=== PATIENT | female | born 1990 | race Caucasian/White ===

== ENCOUNTER → 2018-07-08 11:47 | Outpatient (CLI) | payer BC, SELFPAY ==
[2018-07-08 14:43] LABS: HCG Qual (Serum) Negative
== END ==
PROVIDERS: PCP Family Medicine; Visit Provider Family Medicine
DX: Z87.59 Personal history of other complications of pregnancy, childbirth and the puerperium (principal)
CPT/HCPCS: 36415; 84703

== ENCOUNTER 2019-06-02 17:10 | Outpatient (REF) | payer BC, SELFPAY ==
[2019-06-02 18:42] LABS: Abs Immature Grans 0.05 k/cumm (0.0-0.09); Absolute Monocyte Count 1.01 k/cumm (0.11-0.7); HCT 37.3 % (36.0-46.0); HGB 12.2 g/dL (12.0-15.5); Mean Corp. HGB Concentration 32.7 g/dL (32.0-36.0); Mean Corpuscular Hemoglobin 28.4 pg (27.0-33.0); Mean Corpuscular Volume 86.7 fL (80-95); Mean Platelet Volume 10.5 fL (8.0-11.0); Platelet Count 336 x1000/uL (130-400); RBC Distribution Width 12.9 % (11.7-14.6); White Blood Cell Count 12.61 k/cumm (4.4-10.8)
[2019-06-02 19:51] LABS: Absolute Lymphocyte Count 2.65 k/cumm (1.2-3.4); Absolute Neutrophil Count 8.32 k/cumm (1.2-6.7); Atypical Lymphocytes % 3
[2019-06-02 19:52] LABS: Absolute Basophil Count 0.13 k/cumm (0.0-0.2); Diff Comment Manual Differential; RBC Morphology Normal
== END 2019-06-02 17:30 ==
LOC: NCHCN 17:10
PROVIDERS: PCP Family Medicine; Visit Provider Family Medicine
DX: J06.9 Acute upper respiratory infection, unspecified (principal); R53.83 Other fatigue; D64.9 Anemia, unspecified
CPT/HCPCS: 85025

== ENCOUNTER 2020-09-13 19:29 | Outpatient (REF) | payer BC, SELFPAY ==
[2020-09-13 21:29] LABS: Folate 15.8 ng/mL (8.6-20.0); Vitamin B12 375 pg/mL (193-986)
== END 2020-09-13 19:49 ==
LOC: NCHCN 19:29
PROVIDERS: PCP Family Medicine; Visit Provider Family Medicine
DX: H93.12 Tinnitus, left ear (principal)
CPT/HCPCS: 82607; 82746

== ENCOUNTER 2021-08-29 15:52 | Outpatient (REF) | payer BC, SELFPAY ==
[2021-08-29 20:14] LABS: Abs Immature Grans 0.02 10^3/uL (0.0-0.06); Absolute Basophil Count 0.06 10^3/uL (0.0-0.2); Absolute Eosinophil Count 0.45 10^3/uL (0.0-0.7); Absolute Monocyte Count 0.71 10^3/uL (0.1-0.8); Basophils % 0.6; Eosinophils % 4.4; HCT 39.9 % (36.0-46.0); HGB 12.8 g/dL (11.2-15.7); Immature Grans % 0.2; Lymphocytes % 20.7; MCH 29.1 pg (27.0-33.0); MCHC 32.1 % (32.0-36.0); MCV 90.7 fL (80-95); Neutrophils % 67.1; Nucleated RBC 0 %; Platelet Count 287 10^3/uL (130-400); RDW 12.9 % (11.7-14.6); RDW-SD 42.9 fL; WBC 10.14 10^3/uL (4.4-10.8)
[2021-08-29 20:16] LABS: HCG Qual (Serum) Negative
[2021-08-29 20:21] LABS: ALT 24 U/L (14-59); AST 18 U/L (15-37); Albumin 4.2 g/dL (3.4-5.0); Alkaline Phosphatase 46 U/L (46-116); Anion Gap 6.8 mmol/L (3-11); BUN 11 mg/dL (7-18); Bilirubin, Total 0.4 mg/dL (0.2-1.0); CO2 30.2 mmol/L (21.0-32.0); CREATININE 0.7 mg/dL (0.55-1.02); Calcium 9.3 mg/dL (8.5-10.1); Chloride 102 mmol/L (98-107); Glucose 98 mg/dL (74-106); Lipase 99 U/L (73-393); Potassium 3.7 mmol/L (3.5-5.1); Sodium 139 mmol/L (136-145); Total Protein 7.6 g/dL (6.4-8.2)
== END 2021-08-29 15:53 | disposition home or self-care (01) ==
LOC: NCHCN 15:52
PROVIDERS: PCP Family Medicine; Visit Provider Family Medicine
DX: R11.0 Nausea (principal); R10.12 Left upper quadrant pain
CPT/HCPCS: 80053; 83690; 84703; 85025

== ENCOUNTER 2021-12-20 15:37 | Emergency (ER) | payer BC, SELFPAY ==
[2021-12-20] VITALS (15 sets, daily range): BP systolic 121–151; BP diastolic 70–78; PULSE 59–74; RESP 12–21; TEMP 36.3; O2SAT 99–100
--- NOTE | 2021-12-20 15:30 | RT.EKG_ITS ---
APPROVED REPORT Exam: Resting ECG Reason for Exam: palpitations Patient Location: E HR:63 bpm ECG Measurements Heart Rate 63 AXIS OK 163 P 77 QRSd 98 QRS 64 QT 403 T 38 QTc 415 Conclusion Sinus rhythm...normal P axis, V-rate 60- 99 Probable left atrial enlargement...P >50mS, <-0.10mV V1
[2021-12-20 16:04] LABS: Abs Immature Grans 0.02 10^3/uL (0.0-0.06); Absolute Basophil Count 0.05 10^3/uL (0.0-0.2); Absolute Eosinophil Count 0.31 10^3/uL (0.0-0.7); Absolute Lymphocyte Count 2.38 10^3/uL (1.2-3.4); Absolute Monocyte Count 0.87 10^3/uL (0.1-0.8); Absolute Neutrophil Count 4.56 10^3/uL (1.2-6.7); Basophils % 0.6; Eosinophils % 3.8; HGB 12.9 g/dL (11.2-15.7); Immature Grans % 0.2; Lymphocytes % 29.1; MCH 28.7 pg (27.0-33.0); MCHC 32.3 % (32.0-36.0); MCV 89.1 fL (80-95); MPV 10.3 fL (8.0-11.0); Monocytes % 10.6; Neutrophils % 55.7; Nucleated RBC 0 %; Platelet Count 264 10^3/uL (130-400); RBC 4.49 10^6/uL (3.93-5.22); RDW 12.7 % (11.7-14.6); RDW-SD 42.4 fL; WBC 8.19 10^3/uL (4.4-10.8)
--- NOTE | 2021-12-20 16:20 | ED.GENADUL_ITS ---
Discharge Plan Disposition Patient Disposition: HOME Condition: Stable Discharge Details Clinical Impression: Heart palpitations Primary Care Provider: Rita Quiroga ED Provider: Shannon Roger Home Meds and New Rx's Prescriptions: Continued ranitidine HCl 300 MG tablet 300 mg PO DAILY RF: 0 escitalopram oxalate [Lexapro] 10 MG tablet 10 mg PO DAILY RF: 0 omeprazole magnesium [Prilosec OTC] 20 MG tablet,delayed release (DR/EC) 20 mg PO DAILY RF: 0 VITAMIN D 1 tab PO DAILY RF: 0 WOMENS MV & MINERAL 1 tab PO DAILY RF: 0 levonorgestrel-ethinyl estrad [Vienva] 0.1-20 mg-mcg tablet 1 tab PO DAILY RF: 0 montelukast 10 mg tablet 10 mg PO DAILY RF: 0 Discharge Instructions Instructions: Heart Palpitations (ED) Additional Instructions: you will receive a call for appointment to have cardiac specialist placed. keep your follow up appointment with your doctor tomorrow. return sooner for new or worsening symptoms or concerns Referrals: Rita Quiroga MD [Primary Care Provider] - Discharge Orders Other Ambulatory Orders: Cardiac Event Recorder (Routine) Timeframe: 20211221 Facility: [facility] - Location: Respiratory Therapy Ordered By: Shannon Roger Medical Decision Making patient presents with 2 weeks of palpitations. no chest pain,or respiratory c/o. no fever, hemodynamically stable oxygenating well on room air. will check electrolytes, tsh, kidney function, . WELLS criteria 0. labs reviewed, given mag oxide 400 mg po and potassium 40 meq po cardiac event recorder ordered, RT will contact patient for appointment to place. safe for discharge to home. while in department patient monitored on cardiac specialist. she reported having symptoms while here. Here rhythm remained in NSR with occasional PVC. Medical Records Medical records reviewed: Yes I reviewed the patient's medical records. Lab Data Lab results reviewed: Yes I reviewed the patient's lab results. Lab results narrative: Laboratory Tests Range/Units 12/20/21 12/20/21 12/20/21 15:50 15:50 15:50 WBC (4.4-10.8) 10^3/uL 8.19 RBC (3.93-5.22) 10^6/uL 4.49 Hgb (11.2-15.7) g/dL 12.9 Hct (36.0-46.0) % 40.0 MCV (80-95) fL 89.1 MCH (27.0-33.0) pg 28.7 MCHC (32.0-36.0) % 32.3 RDW (11.7-14.6) % 12.7 Plt Count (130-400) 10^3/uL 264 MPV (8.0-11.0) fL 10.3 Immature Gran % 0.2 Neutrophils % 55.7 Lymphocytes % 29.1 Monocytes % 10.6 Eosinophils % 3.8 Basophils % 0.6 Nucleated RBC % % 0 Absolute Neutrophils (1.2-6.7) 10^3/uL 4.56 Absolute Lymphocytes (1.2-3.4) 10^3/uL 2.38 Absolute Monocytes (0.1-0.8) 10^3/uL 0.87 H Absolute Eosinophils (0.0-0.7) 10^3/uL 0.31 Absolute Basophils (0.0-0.2) 10^3/uL 0.05 Sodium (136-145) mmol/L 136 Potassium (3.5-5.1) mmol/L 3.6 Chloride (98-107) mmol/L 101 Carbon Dioxide (21.0-32.0) mmol/L 27.5 Anion Gap (3-11) mmol/L 7.5 BUN (7-18) mg/dL 10 Creatinine (0.55-1.02) mg/dL 0.7 Estimated GFR/1.73 m2 (mL/min/1.73m2) >= 60.00 Glucose (74-106) mg/dL 89 Calcium (8.5-10.1) mg/dL 8.9 Magnesium (1.8-2.4) mg/dL 1.7 L Total Bilirubin (0.2-1.0) mg/dL 0.2 AST (15-37) U/L 16 ALT (14-59) U/L 22 Alkaline Phosphatase (46-116) U/L 46 Total Protein (6.4-8.2) g/dL 7.8 Albumin (3.4-5.0) g/dL 4.2 TSH (0.36-3.74) uIU/mL 3.78 H Cancelled Free T4 (0.76-1.46) ng/dL 0.85 Urine Color (Yellow) Urine Clarity (Clear) Urine pH (5-8) Ur Specific [place] (1.005-1.025) Urine Protein (Negative) mg/dL Urine Ketones (Negative) mg/dL Urine Blood (Negative) Urine Nitrite (Negative) Urine Bilirubin (Negative) Urine Urobilinogen (Up TO 0.2) EU/dL Ur Leukocyte Esterase (Negative) Urine Glucose (Negative) mg/dL Range/Units 12/20/21 16:27 WBC (4.4-10.8) 10^3/uL RBC (3.93-5.22) 10^6/uL Hgb (11.2-15.7) g/dL Hct (36.0-46.0) % MCV (80-95) fL MCH (27.0-33.0) pg MCHC (32.0-36.0) % RDW (11.7-14.6) % Plt Count (130-400) 10^3/uL MPV (8.0-11.0) fL Immature Gran % Neutrophils % Lymphocytes % Monocytes % Eosinophils % Basophils % Nucleated RBC % % Absolute Neutrophils (1.2-6.7) 10^3/uL Absolute Lymphocytes (1.2-3.4) 10^3/uL Absolute Monocytes (0.1-0.8) 10^3/uL Absolute Eosinophils (0.0-0.7) 10^3/uL Absolute Basophils (0.0-0.2) 10^3/uL Sodium (136-145) mmol/L Potassium (3.5-5.1) mmol/L Chloride (98-107) mmol/L Carbon Dioxide (21.0-32.0) mmol/L Anion Gap (3-11) mmol/L BUN (7-18) mg/dL Creatinine (0.55-1.02) mg/dL Estimated GFR/1.73 m2 (mL/min/1.73m2) Glucose (74-106) mg/dL Calcium (8.5-10.1) mg/dL Magnesium (1.8-2.4) mg/dL Total Bilirubin (0.2-1.0) mg/dL AST (15-37) U/L ALT (14-59) U/L Alkaline Phosphatase (46-116) U/L Total Protein (6.4-8.2) g/dL Albumin (3.4-5.0) g/dL TSH (0.36-3.74) uIU/mL Free T4 (0.76-1.46) ng/dL Urine Color (Yellow) Yellow Urine Clarity (Clear) Clear Urine pH (5-8) 7.0 Ur Specific [place] (1.005-1.025) 1.020 Urine Protein (Negative) mg/dL Negative Urine Ketones (Negative) mg/dL Negative Urine Blood (Negative) Negative Urine Nitrite (Negative) Negative Urine Bilirubin (Negative) Negative Urine Urobilinogen (Up TO 0.2) EU/dL 0.2 Ur Leukocyte Esterase (Negative) Negative Urine Glucose (Negative) mg/dL Negative HPI General Mode of arrival: ambulatory . Date/Time Provider Initiated Documentation: 12/20/21 15:48 . Limitations to Documentation: no limitations . Information obtained by: patient . HPI Narrative: presents for evaluation of palpitations that have been occurring over past 2 weeks. she states she has had some in the past and that they are typically associated with anxiety. she denies chest pain, cough or fever. she is able to complete her typical workouts with no difficulty. non smoker. no history of travel or blood clots. she has a pcp appt tomorrow. Related Data Home Medications Medication Instructions Recorded Confirmed Vitamin D 1 tab PO DAILY 10/03/14 escitalopram oxalate [Lexapro] 10 mg PO DAILY tab-cap 10/03/14 12/20/21 omeprazole magnesium [Prilosec OTC] 20 mg PO DAILY 10/03/14 ranitidine HCl 300 mg PO DAILY tab-cap 10/03/14 12/20/21 levonorgestrel-ethinyl estrad 1 tab PO DAILY 12/20/21 12/20/21 [Vienva] montelukast 10 mg PO DAILY 12/20/21 12/20/21 Allergies Allergy/AdvReac Type Severity Reaction Status Date / Time ENVIROMENTAL Allergy Mild Uncoded 12/20/21 15:46 General Stated Complaint: Palpitatns THOMAS: 3 Review of Systems All systems reviewed & are unremarkable except as noted in HPI and below Constitutional Constitutional: Denies fever(s), Denies headache(s), Denies lethargy, Denies poor appetite and Denies weakness ENT Ears, Nose, Mouth, and Throat: Denies headache(s) Cardiovascular Cardiovascular: Reports chest pain, Denies syncope, Denies lightheadedness, Reports palpitations (palpitations) and Denies dyspnea Respiratory Respiratory: Denies dyspnea Gastrointestinal Gastrointestinal: Denies nausea and Denies vomiting Genitourinary Comments: last menstrual period last month, normal pattern Musculoskeletal Musculoskeletal: Denies arthralgias Neurologic Neurologic: Denies syncope, Denies headache(s) and Denies weakness Endocrine Endocrine: Reports palpitations (palpitations) [facility] All Active Problems (Updated 12/20/21 @ 17:18 by Shannon Roger NP) Palpitations (Acute) Heart palpitations (Acute) Environmental allergies (Acute) TMJ dysfunction (Acute) Allergic rhinitis due to allergen (Acute) Jaw pain (Acute) Post-nasal drip (Acute) Chronic rhinitis (Acute) History of chronic cough (Acute) Normal hearing exam (Acute) Otalgia of both ears (Acute) Tinnitus, bilateral (Acute) Abnormal auditory perception (Acute) Social History Smoking/Tobacco Use Status: Never Smoking risk assessment performed?: Yes Alcohol Intake: current Alcohol Intake frequency: a few times a week Drug use: Occasionally Substance use type: marijuana Do you feel safe at home: Yes Do you feel safe in your relationship?: Yes Exam Const General: cooperative, healthy appearing, comfortable and no acute distress Nutritional Appearance: average body habitus Orientation: alert, awake and oriented x3 HENMS Head: normal to inspection, normocephalic and atraumatic Mouth: oral mucosae normal Chest Chest: normal inspection of the chest Resp Effort & Inspection: normal respiratory effort Auscultation: clear to auscultation bilaterally Cardio Rate: regular rate Rhythm: regular rhythm GI Inspection: normal to inspection Skin General skin exam: no rashes or lesions noted Neuro General: patient alert, patient awake and patient oriented x3 Cranial Nerves: CN's II-XI intact bilaterally Extrem General: normal to inspection, full ROM and no pedal edema Course Vital Signs Vital signs: Vital Signs Temperature 36.3 C L 12/20/21 15:42 Pulse 74 12/20/21 15:42 Respiratory Rate 18 12/20/21 15:42 Blood Pressure 151/78 H 12/20/21 15:42 Pulse Oximetry 100 12/20/21 15:42 Temperature 36.3 C L 12/20/21 15:42 Temperature Source Temporal Artery Scan 12/20/21 15:42 Pulse 74 12/20/21 15:42 Respiratory Rate 18 12/20/21 15:42 Respiratory Effort 12/20/21 15:48 Blood Pressure 151/78 H 12/20/21 15:42 Blood Pressure Position Sitting 12/20/21 15:42 Pulse Oximetry 100 12/20/21 15:42 Oxygen Delivery Method Room Air 12/20/21 15:42 Oxygen Flow Rate 0 12/20/21 15:42 Lab/Test Results Lab/Test Results: Laboratory Tests Range/Units 12/20/21 12/20/21 15:50 15:50 WBC (4.4-10.8) 10^3/uL 8.19 RBC (3.93-5.22) 10^6/uL 4.49 Hgb (11.2-15.7) g/dL 12.9 Hct (36.0-46.0) % 40.0 MCV (80-95) fL 89.1 MCH (27.0-33.0) pg 28.7 MCHC (32.0-36.0) % 32.3 RDW (11.7-14.6) % 12.7 Plt Count (130-400) 10^3/uL 264 MPV (8.0-11.0) fL 10.3 Immature Gran % 0.2 Neutrophils % 55.7 Lymphocytes % 29.1 Monocytes % 10.6 Eosinophils % 3.8 Basophils % 0.6 Nucleated RBC % % 0 Absolute Neutrophils (1.2-6.7) 10^3/uL 4.56 Absolute Lymphocytes (1.2-3.4) 10^3/uL 2.38 Absolute Monocytes (0.1-0.8) 10^3/uL 0.87 H Absolute Eosinophils (0.0-0.7) 10^3/uL 0.31 Absolute Basophils (0.0-0.2) 10^3/uL 0.05 TSH Cancelled PAWSS Have you Been Recently Intoxicated or Drunk Within the Last 30 days?: Yes Have you Ever Experienced Previous Episodes of Alcohol Withdrawal?: No Have you ever Experienced Withdrawal Seizures?: No Have you ever Experienced Delirium Tremens(DT)s?: No Have you ever undergone Alcohol Rehabilitation Treatment (i.e, inpt ot outpatient treatment programs)?: No Have you ever Experienced Blackouts?: No Have you ever Combined Alcohol with other Downers within the last 90 days?: No Have you ever Combined Alcohol with any other Substance of Abuse during the last 90 days?: No Positive Blood Alcohol level on Presentation? [PCS.BAL]: No Evidence of Increased Autonomic Activity (i.e. HR>120, tremor, sweating, agitation, nausea)?: No Result: 1
[2021-12-20 16:27] LABS: ALT 22 U/L (14-59); AST 16 U/L (15-37); Albumin 4.2 g/dL (3.4-5.0); Alkaline Phosphatase 46 U/L (46-116); Anion Gap 7.5 mmol/L (3-11); BUN 10 mg/dL (7-18); Bilirubin, Total 0.2 mg/dL (0.2-1.0); CO2 27.5 mmol/L (21.0-32.0); CREATININE 0.7 mg/dL (0.55-1.02); Calcium 8.9 mg/dL (8.5-10.1); Chloride 101 mmol/L (98-107); Glucose 89 mg/dL (74-106); Magnesium 1.7 mg/dL (1.8-2.4); Potassium 3.6 mmol/L (3.5-5.1); Sodium 136 mmol/L (136-145); TSH (W/Ref FT4) 3.78 uIU/mL (0.36-3.74); Total Protein 7.8 g/dL (6.4-8.2)
[2021-12-20 16:43] LABS: Bilirubin Negative (Negative); Blood Negative (Negative); Clarity Clear (Clear); Glucose Negative (Negative); Ketones Negative (Negative); Leukocyte Esterase Negative (Negative); Nitrite Negative (Negative); Urobilinogen 0.2 EU/dL (Up TO 0.2)
[2021-12-20 17:00] LABS: FREE T4 0.85 ng/dL (0.76-1.46)
[2021-12-20] MEDS: Magnesium Oxide 400 MG TAB PO (17:08)
[2021-12-20] MEDS: Potassium Chloride 20 MEQ TABCR 40 MEQ PO (17:08)
== END 2021-12-20 17:36 | disposition home or self-care (01) ==
PROVIDERS: Emergency Provider Nurse Practitioner Acute Care; PCP Family Medicine
DX: R00.2 Palpitations (principal)
CPT/HCPCS: 36415; 80053; 81025; 93005; 99283; 81003; 83735; 84439; 84443; 85025; 93010

== ENCOUNTER 2021-12-24 04:00 | Outpatient (RCR) | payer BC, SELFPAY ==
--- NOTE | 2021-12-24 13:45 | HOLTER_ITS ---
APPROVED REPORT Conclusion This is a 48-hour Holter monitor ordered for palpitations Predominant rhythm was sinus with an average heart rate of 70. Minimum was 34, maximum 161 There were occasional ventricular ectopic beats There were very rare atrial premature beats. There was one 4 beat atrial run There is no atrial fibrillation, no high-grade AV block, no pauses greater than 3 seconds Sinus bradycardia was noted during sleep Patient symptoms corresponded mostly to sinus rhythm, rarely to isolated PVCs
== END 2021-12-31 23:59 | disposition home or self-care (01) ==
LOC: RT 04:00
PROVIDERS: PCP Family Medicine; Visit Provider Family Medicine
DX: R00.2 Palpitations (principal); I49.3 Ventricular premature depolarization; I49.1 Atrial premature depolarization
CPT/HCPCS: 93225; 93226

== ENCOUNTER 2022-03-14 15:50 | Outpatient (REF) | payer BC, SELFPAY ==
[2022-03-16 10:42] LABS: COVID-19 RT-PCR UVMMC Result Negative (Negative)
== END 2022-03-14 15:51 | disposition home or self-care (01) ==
LOC: NCHCN 15:50
PROVIDERS: PCP Family Medicine; Visit Provider Nurse Practitioner Family
DX: J30.9 Allergic rhinitis, unspecified (principal); Z20.822 Contact with and (suspected) exposure to COVID-19
CPT/HCPCS: U0003

== ENCOUNTER 2022-12-06 00:56 | Outpatient (CLI) | payer BC, SELFPAY ==
--- NOTE | 2022-12-06 16:00 | DI.RAD_ITS ---
Exam(s) XR WRIST LT COMP NAVICULAR EXAM: XR WRIST LT COMP NAVICULAR CLINICAL HISTORY: LT WRIST PAIN, M25.532; ? SCAPHOID FX. TECHNIQUE: 2D digital imaging was performed. Four views. COMPARISON: No exams were available for comparison FINDINGS: BONES: No acute fracture is present. No bony destructive lesion is seen. JOINTS: The carpal bones are normally aligned. SOFT TISSUE: Normal. IMPRESSION: Unremarkable radiographs of the left wrist. DATA REPOSITORY: RADIATION DOSE DELIVERED:
== END 2022-12-06 01:16 ==
LOC: DI 00:57
PROVIDERS: PCP Family Medicine; Visit Provider Family Medicine
DX: M25.532 Pain in left wrist (principal)
CPT/HCPCS: 73110

== ENCOUNTER 2023-02-11 12:22 | Outpatient (CLI) | payer BC, SELFPAY ==
[2023-02-11 12:01] LABS: HCG Quant, Pregnancy < 1 mIU/mL (1-3)
== END 2023-02-11 12:23 | disposition home or self-care (01) ==
LOC: LBO 12:23
PROVIDERS: PCP Family Medicine; Visit Provider Advanced Practice Midwife
DX: R10.32 Left lower quadrant pain (principal)
CPT/HCPCS: 36415; 86850; 86900; 86901; 84702

== ENCOUNTER 2023-05-28 13:49 | Outpatient (REF) | payer BC, SELFPAY ==
[2023-05-28 20:00] LABS: HCT 40.2 % (36.0-46.0); HGB 13.1 g/dL (11.2-15.7); MCH 28.9 pg (27.0-33.0); MCHC 32.6 % (32.0-36.0); MCV 89 fL (80-95); MPV 11.3 fL (8.0-11.0); Platelet Count 293 10^3/uL (130-400); RBC 4.54 10^6/uL (3.93-5.22); RDW 13.3 % (11.7-14.6); RDW-SD 43.4 fL
[2023-05-28 20:15] LABS: FREE T4 0.83 ng/dL (0.76-1.46); TSH 4.82 uIU/mL (0.36-3.74)
[2023-05-28 21:13] LABS: Iron 114 ug/dL (50-170); Total Iron Binding Capacity 451 ug/dL (250-450); Transferrin Sat 25 % (15-50)
== END 2023-05-28 13:50 | disposition home or self-care (01) ==
LOC: NCHCN 13:49
PROVIDERS: PCP Family Medicine; Visit Provider Nurse Practitioner Family
DX: E03.9 Hypothyroidism, unspecified (principal); R00.2 Palpitations
CPT/HCPCS: 85027; 83540; 83550; 84439; 84443

== ENCOUNTER 2023-06-16 14:12 | Outpatient (REF) | payer BC, SELFPAY | END 2023-06-16 14:13 | disposition home or self-care (01) | LOC: NCHCN 14:12 | PROVIDERS: PCP Family Medicine; Visit Provider Family Medicine | DX: N76.0 Acute vaginitis (principal) | CPT/HCPCS: 87480; 87510; 87660 ==

== ENCOUNTER 2023-06-20 12:05 | Outpatient (REF) | payer BC, SELFPAY ==
[2023-06-21 14:56] LABS: HSV 1 DNA Result Negative (Negative); HSV 2 DNA Result Negative (Negative)
== END 2023-06-20 12:06 | disposition home or self-care (01) ==
LOC: LBN 12:05
PROVIDERS: PCP Family Medicine; Visit Provider Advanced Practice Midwife
DX: N76.3 Subacute and chronic vulvitis (principal)
CPT/HCPCS: 87529; 87480; 87510; 87660

== ENCOUNTER 2023-10-31 13:51 | Outpatient (RCR) | payer BC, SELFPAY ==
--- NOTE | 2023-11-03 10:00 | HOLTER_ITS ---
APPROVED REPORT Conclusion This is a 48-hour Holter monitor ordered for palpitations Rhythm throughout was sinus with an average heart rate of 67. Minimum was 44, maximum 142 There were very rare isolated atrial(10) and ventricular(47) ectopic beats There was no atrial fibrillation, no high-grade AV block, no pauses greater than 3 seconds Multiple patient symptoms were reported which had no correlation to any dysrhythmia
== END 2023-11-30 23:59 | disposition home or self-care (01) ==
LOC: CARDOPNVT 13:51
PROVIDERS: PCP Family Medicine; Visit Provider Family Medicine
DX: R00.2 Palpitations (principal)
CPT/HCPCS: 93225

== ENCOUNTER 2024-03-10 18:28 | Outpatient (REF) | payer BC, SELFPAY ==
[2024-03-10 20:19] LABS: Abs Immature Grans 0.02 10^3/uL (0.0-0.06); Absolute Basophil Count 0.04 10^3/uL (0.0-0.2); Absolute Eosinophil Count 0.28 10^3/uL (0.0-0.7); Absolute Lymphocyte Count 1.95 10^3/uL (1.2-3.4); Absolute Monocyte Count 0.57 10^3/uL (0.1-0.8); Absolute Neutrophil Count 4.37 10^3/uL (1.2-6.7); Basophils % 0.6; Eosinophils % 3.9; HCT 38.9 % (36.0-46.0); HGB 12.7 g/dL (11.2-15.7); Immature Grans % 0.3; MCH 29.3 pg (27.0-33.0); MCHC 32.6 % (32.0-36.0); MCV 90 fL (80-95); MPV 10.7 fL (8.0-11.0); Monocytes % 7.9; Neutrophils % 60.3; Platelet Count 293 10^3/uL (130-400); RBC 4.33 10^6/uL (3.93-5.22); RDW 12.8 % (11.7-14.6); RDW-SD 42.4 fL; WBC 7.23 10^3/uL (4.4-10.8)
[2024-03-10 20:36] LABS: TSH (W/Ref FT4) 6.45 uIU/mL (0.36-3.74)
[2024-03-10 20:59] LABS: FREE T4 0.89 ng/dL (0.76-1.46)
[2024-03-11 19:07] LABS: Hepatitis C Ab w Rflx HCV PCR Negative (Negative)
[2024-03-11 19:09] LABS: HIV-1/2 Ag & Ab Screen Negative (Negative)
== END 2024-03-10 18:29 | disposition home or self-care (01) ==
LOC: NCHCN 18:28
PROVIDERS: PCP Family Medicine; Visit Provider Family Medicine
DX: E02 Subclinical iodine-deficiency hypothyroidism (principal); Z00.00 Encounter for general adult medical examination without abnormal findings; R61 Generalized hyperhidrosis
CPT/HCPCS: 86803; 87389; 84439; 84443; 85025

== ENCOUNTER 2024-03-29 16:37 | Outpatient (REF) | payer BC, SELFPAY | END 2024-03-29 16:38 | disposition home or self-care (01) | LOC: LBN 16:37 | PROVIDERS: PCP Family Medicine; Visit Provider Obstetrics & Gynecology | DX: N94.9 Unspecified condition associated with female genital organs and menstrual cycle (principal) | CPT/HCPCS: 87480; 87510; 87660 ==

== ENCOUNTER 2024-06-10 13:51 | Outpatient (REF) | payer BC, SELFPAY ==
--- OUTSIDE RECORDS SUMMARY | 2024-06-10 13:54 | XMS_ITS | Continuity of Care Document ---
Author Organization [facility] Ambulatory Clinics Address [address] [place] [address] Care Team Providers Care Attic Blower Name Role Phone NOE TEJEDA, LAVINIA Olson Primary Care Physician [phone] Encounter [facility] NBR [id number] Date(s): 05/19/24 - 05/19/24 [facility] Ambulatory Clinics [address] [place], [place] [address] Encounter Diagnosis GERD (gastroesophageal reflux disease)(Discharge Diagnosis) - 05/19/24 IBS (irritable bowel syndrome)(Discharge Diagnosis) - 05/19/24 Discharge Disposition: Home or Self Care Attending Physician: Evita Valderrama APRN Allergies, Adverse Reactions, Alerts No Known Medication Allergies Substance Reaction Severity Status No Known Environmental Allergies Unknown Moderate Active Assessment and Plan Extracted from: Title:Office Visit Note-GI Author:Evita Valderrama APRN Date:05/19/24 1.??IBS (irritable bowel syn drome)??K58.9 ??Patient complains of pain in his diarrhea that occurs with??stress.?? Celiac disease, colitis,??and neoplasia has been ruled out in the past with labs??and EGDs and colonoscopies. ??She has no red flag symptoms at this time.?? She has a direct correlation between stress??and her bowels.?? Nortriptyline provided some relief. ??She is also identified that she is lactose intolerant.?? Advised to avoid triggering foods. ??We discussed high-fiber diet especially of insoluble fibers.?? Fiber handout was given to the patient.?? Also given a prescription of hyoscyamine 0.125??mg??to take sublingually up to 4 times a day as needed for pain??and diarrhea. ??I will see patient back in 2 months to reassess. 2.??GERD (gastroesophageal reflux disease)??K21.9 ??Asymptomatic at this time. ??Not on any rate??agents. ??Advised to continue the same. Orders: hyoscyamine 0.125 mg oral tablet, See Instructions, PRN as needed for spasm, 1 tab Oral QID, # 30 cap, 3 Refill(s), Pharmacy: [id number], 160.02, cm, 05/19/24 15:37:00 EDT, Height, 58.97, kg, 05/19/24 15:43:00 EDT, Weight Dosing Follow-up Appointment Request [id number], *Est. 07/19/24 +/- 14 days, Future Order, f/u IBS, In Approximately, [facility] G[facility]ology Voice recognition software utilized which may result in minor drawing supervisor error.? Future Appointments Functional Status 05/19/24 Other exposure to Infectious Disease Non e Medications Aubra 100 mcg-20 mcg oral tablet 1 tab, Oral, Daily, 0 Refill(s) Start Date: 09/05/22 Status: Ordered Claritin 10 mg oral tablet 10 mg = 1 tab, Oral, Daily, # 30 tab, 0 Refill(s) Start Date: 05/19/24 Status: Ordered hyoscyamine 0.125 mg oral tablet See Instructions, PRN as needed for spasm, 1 tab Oral QID, # 30 cap, 3 Refill(s), Pharmacy: [id number], 160.02, cm, 05/19/24 15:37:00 EDT, Height, 58.97, kg, 05/19/24 15:43:00 EDT, Weight Dosing Start Date: 05/19/24 Status: Ordered levothyroxine 25 mcg (0.025 mg) oral capsule 25 mcg = 1 cap, Oral, Daily, # 30 cap, 0 Refill(s) Start Date: 05/19/24 Status: Ordered Lexapro 10 mg oral tablet 10 mg = 1 tab, Oral, Daily, # 30 tab, 0 Refill(s) Start Date: 09/05/22 Status: Ordered metoprolol succinate 25 mg oral capsule, extended release 0 Refill(s) Start Date: 05/19/24 Status: Ordered Singulair 10 mg oral tablet 10 mg = 1 tab, Oral, Daily, 0 Refill(s) Start Date: 09/05/22 Status: Ordered Problem List Condition Confirmation Course Effective Dates Status H ealth Status Informant Abnormal auditory perception Confirmed Active Allergic rhinitis Confirmed Active Asthma Confirmed Active Bilateral earache Confirmed Active Bilateral tinnitus Confirmed Active Chronic rhinitis Confirmed Active Depression Confirmed Active Ectopic Confirmed Active Environmental allergy Confirmed Active Family history of hemochromatosis Confirmed Active GERD (gastroesophageal reflux disease) Confirmed Active H/O: respiratory disease Confirmed Active IBS (irritable bowel syndrome) Confirmed Active Jaw pain Confirmed Active Lyme disease Confirmed Active Neoplastic disease Confirmed Active Osteoarthritis Confirmed Active Knee pain Confirmed Active Posterior rhinorrhea Confirmed Active Sebaceous cyst Confirmed Active Shoulder pain Confirmed Active Tension type headache Confirmed Active Tinnitus Confirmed Active Procedures Procedure Date Related Diagnosis Body Site Status Upper GI (gastrointestinal) endoscopy 02/12/22 Completed Teeth operation Completed Vital Signs Most recent to oldest [Reference Range]: 1 Temperature Temporal Artery [36-38 Deg C ] 36.4 Deg C (05/19/24 3:37 PM) Apical Heart Rate [60-100 bpm] 81 bpm (05/19/24 3:37 PM) Blood Pressure [90-140/60-90 mmHg] 123/7 6mmHg (05/19/24 3:37 PM) Mean Arterial Pressure, Cuff [65-140 mmH g] 92 mmHg (05/19/24 3:37 PM) Weight 58.97 kg (05/19/24 3:37 PM) Weight Measured (lbs) 130.006 lb (05/19/24 3:37 PM) Weight Dosing 58.970 kg (05/19/24 3:37 PM) Alpha Body Weight Calculated 52.4 kg (05/19/24 3:37 PM) Height 160.02 cm (05/19/24 3:37 PM) Height/Length Measured (inches) 63 inch (05/19/24 3:37 PM) BSA Measured 1.62 m2 (05/19/24 3:37 PM) Body Mass Index 23.03 kg/m2 (05/19/24 3:37 PM) Social History Social History Type Response Tobacco Never tobacco user T obacco Use:. Sex Female Physician Outpatient Note * Evita Valderrama APRN: PERFORM Event Display: Office Clinic Note Physician Authored Date: [id number] CHELSEA PERES:1990 Age:34 years Sex:Female Visit Date:05/19/2024 Primary Care Physician: LAVINIA LIU MD Chief Complaint IBS History of Present Illness She is a 34-year-old female here today at the request of Dr. Liu for this.?? She was last seen [id number] for??IBS and GERD. ??She was lost to follow-up. ??At last visit she was taking pantoprazole 40mg daily and nortriptyline 10 mg nightly.?? She states she found that it did work and it helped. ??She also started to do the low FODMAP diet??and in doing so found she was lactose intolerant. ??She avoids dairy??for the most part.?? She has been??under relative control. ??She no longer takes pantoprazole denies any dyspepsia.?? She states she has had??painless diarrhea approximately 2 times per day??in the morning??for the past few months. ??Describes her stools as [place] form 5 and 27 on thesecond bowel movement.?? Denies any changes in weight,??melena or hematochezia.?? 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 She is pursuing something different.?? She wanted to touch base to make sure??that there was no other things to be concernedof.?? She identifies??a direct correlation between stress??and her bowels.?? She has had a couple of episodes where she is??cramping??and diarrhea.?? Needed to lay down for her symptoms. ?? Dyspepsia, dysphagia or globus sensation. ??Has no nausea or vomiting. ?? She reports a history of IBS that she has been able to manage over the years and continues to manage.? She also states a history of GERD and been on Zantac and Prilosec for that in her early 20s as well.? Uses Motrin a few times a month for muscle complaints. ?? Labs: -10/24/2021 TTG G IgA was negative for celiac disease. -03/10/2024 TSH 0.89, CBC normal. ?? Imaging: -10/02/2021 patient had abdominal and pelvic ultrasound sound that was transabdominal and transvaginal. Results were unremarkable. -06/22/2021 abdominal ultrasound was normal. ?? EGD: -07/27/2010 normal -02/13/2022 was grossly normal without celiac or H. pylori seen on pathology.? Colonoscopy: ??07/27/2010 was normal. ?? There is a family history of hemochromatosis in a paternal aunt and uncle. ??On 10/05/2021 ferritin level 65, iron panel was normal.?? Denies a family history of gastrointestinal cancers. ?? Review of Systems Pertinent positives and negatives are discussed in HPI. Physical Exam Vitals & Measurements T:??36.4?C ??(Temporal Artery)?? HR:??81??(Apical)?? BP:??123/76?? SpO2:??98%?? HT:??160.02??cm?? WT:??58.97??kg?? BMI:??23.03?? BSA:??1.62?? General: Well-nourished well-developed female??in no acute distress. HEENT: Head is normocephalic, trachea midline, and no cervical lymphadenopathy. Respiratory: Respirations are even and unlabored. ??Lungs are clear to auscultation. Cardiovascular: Regular rate and rhythm with S1 and S2. Abdomen: Positive bowel sounds x4 quadrants, no masses, no guarding, no tenderness. ??No hepatosplenomegaly. ??Abdomen is soft. Skin: Warm, dry, and pink. Neurological: Alert and oriented x3, speech is clear and gait is steady. Psychological: Pleasant, calm and cooperative. Assessment/Plan 1.??IBS (irritable bowel syndrome)??K58.9 ??Patient complains of pain in his diarrhea that occurs with??stress.?? Celiac disease, colitis,??and neoplasia has been ruled out in the past with labs??and EGDs and colonoscopies. ??She has no red flag symptoms at this time.?? She has a direct correlation between stress??and her bowels.?? Nortriptyline provided some relief. ??She is also identified that she is lactose intolerant.?? Advised to av oid triggering foods. ??We discussed high-fiber diet especially of insoluble fibers.?? Fiber handout was given to the patient.?? Also given a prescription of hyoscyamine 0.125??mg??to take sublingually up to 4 times a day as needed for pain??and diarrhea. ??I will see patient back in 2 months to reassess. 2.??GERD (gastroesophageal reflux disease)??K21.9 ??Asymptomatic at this time. ??Not on any rate??agents. ??Advised to continue the same. Orders: hyoscyamine 0.125 mg oral tablet, See Instructions, PRN as needed for spasm, 1 tab Oral QID, # 30 cap, 3 Refill(s), Pharmacy: [id number], 160.02, cm, 05/19/24 15:37:00 EDT, Height, 58.97, kg, 05/19/24 15:43:00 EDT, Weight Dosing Follow-up Appointment Request [id number], *Est. 07/19/24 +/- 14 days, Future Order, f/u IBS, In Approximately, [facility] Gastroenterology Voice recognition software utilized which may result in minor drawing supervisor error.? Problem List/Past Medical History Ongoing Abnormal auditory perception Allergic rhinitis Asthma Bilateral earache Bilateral tinnitus Chronic rhinitis Depression Ectopic Environmental allergy Family history of hemochromatosis GERD (gastroesophageal reflux disease) H/O: respiratory disease IBS (irritable bowel syndrome) Jaw pain Knee pain Lyme disease Neoplastic disease Osteoarthritis Posterior rhinorrhea Sebaceous cyst Shoulder pain Tension type headache Tinnitus Historical Acid reflux Dyspepsia Gastroesophageal reflux disease Procedure/Surgical History ???Upper GI (gastrointestinal) endoscopy (02/13/2022)???Teeth operation Medications Aubra 100 mcg-20 mcg oral tablet, 1 tab, Oral, Daily Claritin 10 mg oral tablet, 10 mg= 1 tab, Oral, Daily hyoscyamine 0.125 mg oral tablet, See Instructions, PRN, 3 refills levothyroxine 25 mcg (0.025 mg) oral capsule, 25 mcg= 1 cap, Oral, Daily Lexapro 10 mg oral tablet, 10 mg= 1 tab, Oral, Daily metoprolol succinate 25 mg oral capsule, extended release Singulair 10 mg oral tablet, 10 mg= 1 tab, Oral, Daily Allergies No Known Environmental Allergies??(Unknown) No Known Medication Allergies Social History Alcohol Current- Comments: every other week Occassionally Electronic Cigarette/Vaping Electronic Cigarette Use: Never. Substance Use Never Tobacco Never tobacco user Tobacco Use:. Family History Anxiety: Father. Depression: Father. Heart attack: Grandfather (M). Stroke: Father. Mother: History is unknown Grandmother (M): History is unknown Family Member(s): ?? GPARENT, at age: Unknown. Cause of : Family Member(s): ?? GPARENT, at age: Unknown. Cause of : Family Member(s): ?? GPARENT, at age: Unknown. Cause of : Electronically Signed on 05/19/2024 16:11 EDT Evita Valderrama APRN Patient Care team information Care Team Personnel Name: LAVINIA LIU MD Position: No Access Member Role: Primary Care Physician Address: Address: [address] [place] [id number]- Care Team Related Persons Name: BREANN SRINIVASAN
--- OUTSIDE RECORDS SUMMARY | 2024-06-10 13:54 | XMS_ITS | Continuity of Care Document ---
Author Organization [facility] Ambulatory Clinics Address [address] [place] [address] Encounter [facility] NBR [id number] Date(s): 09/05/22 - 09/05/22 [facility] Ambulatory Clinics [address] [place] [address]- [place] Encounter Diagnosis GERD (gastroesophageal reflux disease)(Discharge Diagnosis) - 09/05/22 Dyspepsia(Discharge Diagnosis) - 09/05/22 Discharge Disposition: Home or Self Care Attending Physician: Evita Valderrama APRN Allergies, Adverse Reactions, Alerts No Known Medication Allergies Substance Reaction Severity Status No Known Environmental Allergies Unknown Moderate Active Assessment and Plan Future Appointments Functional Status 09/05/22 Other exposure to Infectious Disease Non e Medications [facility] 24 Hour Allergy oral tablet 180 mg = 1 tab, Oral, Daily, # 30 tab, 0 Refill(s) Start Date: 09/05/22 Status: Ordered Aubra 100 mcg-20 mcg oral tablet 1 tab, Oral, Daily, 0 Refill(s) Start Date: 09/05/22 Status: Ordered Lexapro 10 mg oral tablet 10 mg = 1 tab, Oral, Daily, # 30 tab, 0 Refill(s) Start Date: 09/05/22 Status: Ordered nortriptyline 10 mg oral capsule 10 mg = 1 cap, Oral, every night at bedtime, # 90 cap, 1 Refill(s), Pharmacy: [id number] Start Date: 09/05/22 Stop Date: 03/04/23 Status: Ordered pantoprazole 40 mg oral delayed release tablet 80 mg = 2 tab, Oral, BID, # 60 tab, 0 Refill(s) Start Date: 09/05/22 Status: Ordered Singulair 10 mg oral tablet [...] Confirmed Active H/O: respiratory disease Confirmed Active Dyspepsia Confirmed Active Jaw pain Confirmed Active Lyme [...] Temperature Temporal Artery [36-38 Deg C ] 37.0 Deg C (09/05/22 10:16 AM) Peripheral Pulse Rate [60-100 bpm] 66 bp m (09/05/22 10:16 AM) Respiratory Rate [12-24 br/min] 18 br/mi n (09/05/22 10:16 AM) Weight 60 kg (09/05/22 10:16 AM) Weight Measured (lbs) 132.277 lb (09/05/22 10:16 AM) Social History Social History Type Response Tobacco Never tobacco user T obacco Use:. Sex Female
--- OUTSIDE RECORDS SUMMARY | 2024-06-10 13:55 | XMS_ITS | Encounter Summary ---
Author Organization [facility] Address [address] [place] [address] Care Team Providers Care Spike Machine Heater Name Role Phone Rita Quiroga MD Primary Care Provider [phone] Encounter Details Date Type Department Care Team (Late st Contact Info) Description 02/13/2022 Lab Requisition [facility] Pathology & Laboratory Medicine - [address] [address] John Chavez MD [address] [place] [phone] Left upper quadrant pain; Heartburn; Personal history of other diseases of the digestive system Social History Tobacco Use Types Packs/Day Years Used Date Smoking Tobacco: Never Smokeless Tobacco: Never Alcohol Use Standard Drinks/Week Comments Yes 0 (1 standard drink = 0.6 oz pur e alcohol) 5 to 5 per week Interpersonal Safety Answer Date Record ed Physically Hurt Never 07/02/2020 Verbally Threaten Not on file 07/02/2020 Sex and Gender Information Value Date Recorded Sex Assigned at Not on file Gender Identity Not on file Sexual Orientation Not on file documented as of this encounter Plan of Treatment Not on file documented as of this encounter Procedures Procedure Name Priority Date/Time Associated Diagnosis Comments SURGICAL PATHOLOGY Today 02/13/2022 9:55 EDT Left upper quadrant pain Heartburn Personal history of other diseases of the digestive system documented in this encounter Results * SURGICAL PATHOLOGY (02/13/2022 9:55 EDT) Note to Patient The following pathology results have been interpreted by your pathologist and may be available to you before your health provider has had the opportunity to review them. Please allow time for your provider to receive these results and explore management options, if applicable. 02/18/2022 14:03 [facility] Final Diagnosis A. DUODENUM, BIOPSY: - No significant pathologic abnormality B. DUODENUM, BULB, BIOPSY: - No significant pathologic abnormality C. STOMACH, ANTRUM, BIOPSY: - No significant pathologic abnormality D. STOMACH, BODY, BIOPSY: - No significant pathologic abnormality 02/18/2022 14:03 [facility] Attestation By the signature below, the attending physician certifies that they have 1) personally conducted a gross and/or microscopic examination of the described specimen(s), and/or personally interpreted the results of laboratory testing of the described specimen(s), and 2) personally rendered or confirmed the above diagnosis. 02/18/2022 14:03 [facility] at 1403 Clinical History History of GERD, pyrosis, LUQ pain; clinical diagnosis code: R10.12, R12, Z87.19 02/18/2022 14:03 [facility] Gross Description A. Received in formalin labelled with proper patient identification (initials W, A) and duodenum bx are 2 jameson-white tissues (0.2 x 0.2 x 0.2 cm and 0.4 x 0.1 x 0.1 cm). The specimen is submitted entirely in A1. B. Received in formalin labelled with proper patient identification (initials W, A) and duodenal bulb bx are two jameson-white tissues (0.2 x 0.2 x 0.2 cm and 0.6 x 0.1 x 0.1 cm). The specimen is submitted entirely in B1. C. Received in formalin labelled with proper patient identification (initials W, A) and antrum bx are 3 jameson tissues (0.1 x 0.1 x 0.1 cm up to 0.3 x 0.1 x 0.1 cm). The specimen is submitted entirely in C1. D. Received in formalin labelled with proper patient identification (initials W, A) and gastric body bx are two jameson tissues (0.2 x 0.1 x 0.1 cm and 0.3 x 0.1 x 0.1 cm). The specimen is submitted entirely in D1. HAJA MORA(ASCP) 02/14/2022 10:16 02/18/2022 14:03 EDT [facility] Performing Lab [facility] 02/18/2022 14:03 EDT [facility] Scanned Images 02/18/2022 14:03 EDT [facility] Tissue ENTIRE STOMACH / Unknown 02/13/2022 9:55 EDT 02/13/2022 23:44 EDT Tissue specimen (specimen) STRUCTURE OF SMALL INTESTINE / Unknown 02/13/2022 9:55 EDT 02/13/2022 23:44 EDT Tissue specimen (specimen) STOMACH STRUCTURE / Unknown 02/13/2022 9:55 EDT 02/13/2022 23:44 EDT Tissue specimen (specimen) STOMACH STRUCTURE / Unknown 02/13/2022 9:55 EDT 02/13/2022 23:44 EDT John Chavez MD PATHOLOGY ORD ERABLES [facility] [address] [place] [address] documented in this encounter Visit Diagnoses Diagnosis Left upper quadrant pain Abdominal pain, left upper quadrant Heartburn Personal history of other diseases of the digestive system documented in this encounter Care Teams Spike Machine Heater Relationship Specialty Start Date End Date Rita Quiroga MD [address] [place] [phone] PCP - General 04/13/17 documented as of this encounter
--- OUTSIDE RECORDS SUMMARY | 2024-06-10 13:55 | XMS_ITS | Encounter Summary ---
Author Organization [facility] Address [address] [place] [address] Care Team Providers Care Child Welfare Counselor Name Role Phone Rita Quiroga MD Primary Care Provider [phone] Reason for Visit * Reason Onset Date Comments Ectopic 04/23/2017 Encounter Details Date Type Department Care Team ([facility] Contact Info) Description 04/23/2017 Telephone [facility] Women's Services - [address] [address] Leni Delgado RN Ectopic Social History Tobacco Use Types Packs/Day Years Used Date Smoking Tobacco: Never Smokeless Tobacco: Never Alcohol Use Standard Drinks/Week Comments Yes 0 (1 standard drink = 0.6 oz pur e alcohol) 5 to 5 per week Comments Yes Sex and Gender Information Value Date Recorded Sex Assigned at Not on file Gender Identity Not on file Sexual Orientation Not on file documented as of this encounter Miscellaneous Notes * Telephone Encounter - Leni Delgado, SANDRO - 04/23/2017 [id number] EDT Component Latest Ref Rng & Units 04/20/2017 04/23/2017 HCG <5 mIU/ml 63 (H) 33 (H) Call to Roxanne to discuss her results and plan per Dr. Zuleta, repeat beta hcg in 1 week, due 04/30. Roxanne has questions about what she read online; is rupture still a possibility and does she need another US? Discussed rupture is still a possibility until her HCG levels are < 5. Discussed additional US would be indicated based on sx/concern for rupture, at this time her sx do not suggest a need for US. Advised to continue pelvic rest, and avoid strenuous activity until resolved. Call with any heavy vaginal bleeding, worsening abd pain or lightheaded/dizziness. She reports spotting, no pain today (intermittent 3-4/10 pain yesterday). Reports overall feeling better with increased energy. Scheduled for BCT with Dr. Baker 05/05/17. Aware [facility] A DRIVER will call with her hcg next week, once available. Roxanne is agreeable to this plan and verbalized understanding. documented in this encounter Plan of Treatment Not on file documented as of this encounter Results * HCG FOR (04/30/2017 12:41 EDT) Quant Beta HCG, Preg <5 <5 mIU/ml 04/30/2017 14:14 EDT [facility] Comment: Reference Range: Negative = <5 Indeterminate = 5-25 recommend repeat in 48 hours. Positive = >25 Blood specimen (specimen) BLOOD SPECIMEN / Unknown 04/30/2017 12:41 EDT 04/30/2017 12:55 EDT Jeinfer Baker MD CHEMISTRY & BLOO D GAS ORDERABLES [facility] [address] [place] [address] documented in this encounter Visit Diagnoses Diagnosis Tubal without intrauterine - Primary documented in this encounter Care Teams Child Welfare Counselor Relationship Specialty Start Date End Date Rita Quiroga MD [address] [place] [phone] PCP - General 04/13/17 documented as of this encounter
--- OUTSIDE RECORDS SUMMARY | 2024-06-10 13:55 | XMS_ITS | Encounter Summary ---
Author Organization [facility] Address [address] [place] [address] Care Team Providers Care Auto Radiator Specialist Name Role Phone Rita Quiroga MD Primary Care Provider Reason for Visit * Reason Comments Laser Treatment spider angioma Encounter Details Date Type Department Care Team (Late st Contact Info) Description 06/11/2017 16:00 EDT Office Visit [facility] Dermatology 3rd Floor [facility] [address] [place] [address] Desirae Desai MD [address] [place] [address] [phone] Spider angioma (Primary Dx) Social History Tobacco Use Types Packs/Day Years Used Date Smoking Tobacco: Never Smokeless Tobacco: Never Alcohol Use Standard Drinks/Week Comments Yes 0 (1 standard drink = 0.6 oz pur e alcohol) 5 to 5 per week Sex and Gender Information Value Date Recorded Sex Assigned at Not on file Gender Identity Not on file Sexual Orientation Not on file documented as of this encounter Progress Notes * Maribel Dorman - 06/11/2017 1600 EDT Review of Systems Constitutional: Negative for fatigue, fever and unexpected weight change. HENT: Negative for mouth sores. Eyes: Negative for pain. Respiratory: Negative for cough and shortness of breath. Cardiovascular: Negative for chest pain and palpitations. Gastrointestinal: Negative for abdominal pain, blood in stool, constipation, diarrhea, nausea and vomiting. Genitourinary: Negative for dysuria, frequency and hematuria. Musculoskeletal: Negative for myalgias, joint swelling, arthralgias and muscle stiffness in the morning. Skin: Negative for rash. Neurological: Negative for numbness and headaches. Endo/Heme/Allergies: Does not bruise/bleed easily. Psychiatric/Behavioral: Negative for sleep disturbance. The patient is not nervous/anxious. Maribel Dorman * Desirae Desai - 06/11/2017 1600 EDT V-BEAM PULSED DYE LASER OPERATIVE REPORT Laser ID# [id number] PATIENT INFORMATION: Roxanne Beltran : MRN: [id number] SURGEON: Desirae Desai MD BODY HANGER: none The risks and benefits of treatment with the pulsed dye laser were discussed carefully with the patient or patient???s guardian. Risks of pulsed dye laser treatment including but not limited to pain,immediate purpura, transient and prolonged hyperpigmentation, hypopigmentation, the need for multiple treatments, a slight risk of scarring, and inadequate cosmetic result were discussed prior to proceeding with treatment. The patient or guardian voiced an understanding of these risks and, following formal written consent, underwent the procedure as described below: DETAILS: LASER SITE A DIAGNOSIS: Spider telangiectasia PROCEDURE: V-beam Pulse Dye Laser 595 nm LOCATION: right nasal sidewall ANESTHESIA: None Treatment Number: 1 Procedure: The patient was brought to the laser suite. Protective eyewear was utilized at all times. Followingappropriate anesthesia, as indicated, the lesion was treated with the Karma V-beam pulsed dye laser 595 with the following settings, using dynamic cooling: Spot Size: 5 mm Fluence: 10 . 0 Joules / cm2 Pulse Duration: 0.45 miliseconds Pulse Stacking: Yes Surface area treated: 1.0 cm2 Following the procedure, the treated area was lightly covered with petrolatum. Charged $100. Desirae Desai MD 06/12/2017 documented in this encounter Plan of Treatment Not on file documented as of this encounter Visit Diagnoses Diagnosis Spider angioma- Primary Nevus, non-neoplastic documented in this encounter Care Teams Auto Radiator Specialist Relationship Specialty Start Date End Date Rita Quiroga MD [address] [place] [phone] PCP - General 04/13/17 documented as of this encounter
--- OUTSIDE RECORDS SUMMARY | 2024-06-10 13:55 | XMS_ITS | Encounter Summary ---
Author Organization [facility] Address [address] [place] [address] Care Team Providers Care Switch Repairer Name Role Phone Rita Quiroga MD Primary Care Provider [phone] Encounter Details Date Type Department Care Team (Late st Contact Info) Description 06/20/2023 Lab Requisition [facility] Pathology & Laboratory Medicine - [address] [address] Outr Resulting Lab, Provider Social History Tobacco Use Types Packs/Day Years [...] Procedure Name Priority Date/Time Associated Diagnosis Comments HSV (HERPES SIMPLEX VIRUS) MOLECULAR DETECTION, PCR Routine 06/20/2023 11:45 EDT documented in this encounter Results * HSV (HERPES SIMPLEX VIRUS) MOLECULAR DETECTION, PCR (06/20/2023 11:45 EDT) Herpes Simplex Virus Molecular Detection 1, PCR Negative Negative 06/21/2023 14:50 EDT [facility] Herpes Simplex Virus Molecular Detection 2, PCR Negative Negative 06/21/2023 14:50 EDT [facility] Swab ENTIRE VAGINA / Unknown 06/20/2023 11:45 EDT 06/21/2023 11:43 EDT Provider Outr Resulting Lab MICROBIOLOGY - GENERAL ORDERABLES Performing Organization Address City/State/[facility] Co de Phone Number [facility] [address] [place] [address] documented in this encounter Visit Diagnoses Not on filedocumented in this encounter Care Teams Switch Repairer Relationship Specialty Start Date End Date Rita Quiroga MD [address] [place] [phone] PCP - General 04/13/17 documented as of this encounter
--- OUTSIDE RECORDS SUMMARY | 2024-06-10 13:55 | XMS_ITS | Continuity of Care Document ---
Author Organization [facility] Address [address] [place] [address] Care Team Providers Care Game Breeding Farm Manager Name Role Phone Rita Quiroga Primary Care Physician Encounter [facility] Date(s): 02/25/23 - 02/25/[address] [address] Discharge Disposition: Home or Self Care Attending Physician: Boo Pringle MD Admitting Physician: Boo Pringle MD Referring Physician: Rita Quiroga MD Allergies, Adverse Reactions, Alerts No Known Allergies Assessment and Plan Future Appointments Future Scheduled Tests Laboratory* Beta hCG Quantitative 02/19/23 Functional Status 02/25/23 Recent Travel History No recent travel Other exposure to Infectious Disease Non e Medications !-[place] 5 mg-325 mg oral tablet 1 tab, Oral, every 6 hr, PRN as needed for pain, # 12 tab, 0 Refill(s), Pharmacy: [facility] Start Date: 02/25/23 Status: Ordered Aubra 0 Refill(s) Start Date: 12/27/22 Status: Ordered Claritin Liqui-Gels 10 mg oral capsule 0 Refill(s) Start Date: 12/27/22 Status: Ordered escitalopram 10 mg oral tablet 10 mg = 1 tab, Oral, Daily, # 30 tab, 0 Refill(s) Start Date: 12/27/22 Status: Ordered montelukast 10 mg oral tablet 0 Refill(s) Start Date: 12/27/22 Status: Ordered Phenergan 25 mg oral tablet 25 mg = 1 tab, Oral, every 6 hr, PRN as needed for nausea/vomiting, # 20 tab, 0 Refill(s), Pharmacy: [facility] Start Date: 02/25/23 Status: Ordered Problem List Condition Confirmation Course Effective Dates Status H ealth Status Informant Allergic rhinitis Confirmed Active Arthritis of finger Confirmed Active Chronic tension headaches Confirmed Active Depression Confirmed Active Family history of hemochromatosis Confirmed Active GERD without esophagitis Confirmed Active Hx of ectopic Confirmed Active History of blood transfusion 1 Confirmed Active Hx of Lyme disease Confirmed Active Abdominal pain, left upper quadrant Confirmed Active Asthma, mild persistent 2 Confirmed Active Pelvic pain Confirmed Active Wrist pain, left Confirmed Active Left wrist pain Confirmed Active Palpitations Confirmed Active Tinnitus, left Confirmed Active Viral URI Confirmed Active pt denies pt deinies Procedures Procedure Date Related Diagnosis Body Site Status Excision of ganglion, wrist (dorsal or volar); primary 1 02/24/23 Completed Colonoscopy Completed EGD (esophagogastroduodenosc opy) gastric outlet reduction Complet ed Surgical removal of wisdom tooth Completed 1Wrist, Left. Results Laboratory List Name Date Test Urine Qual 02/25/23 Most recent to oldest [Reference Range]: 1 U hCG Ql Negative (02/25/23 9:21 AM) Vital Signs Most recent to oldest [Reference Range]: 1 2 3 Temperature Temporal Artery [36-38 Deg C] 37.4 Deg C (02/25/23 11:45 AM) 36.9 Deg C (02/25/23 11:00 AM) 36.6 Deg C (02/25/23 10:46 AM) Temperature Temporal Artery (DegF) [97.3-100 Deg F] 99.32 Deg F (02/25/23 11:45 AM) 98.42 Deg F (02/25/23 11:00 AM) 97.88 Deg F (02/25/23 10:46 AM) Peripheral Pulse Rate [60-100 bpm] 87 bpm (02/25/23 11:45 AM) 92 bpm (02/25/23 11:30 AM) 95 bpm (02/25/23 11:25 AM) Heart Rate Monitored [60-100 bpm] 88 bpm (02/25/23 11:45 AM) 92 bpm (02/25/23 11:30 AM) 95 bpm (02/25/23 11:25 AM) Respiratory Rate [12-24 br/min] 14 br/min (02/25/23 11:45 AM) 12 br/min (02/25/23 11:30 AM) 24 br/min (02/25/23 11:25 AM) Blood Pressure [90-140/60-90 mmHg] 135/81mmHg (02/25/23 11:45 AM) 130/85mmHg (02/25/23 11:30 AM) 125/68mmHg (02/25/23 11:15 AM) Mean Arterial Pressure, Cuff [65-140 mmHg] 99 mmHg (02/25/23 11:45 AM) 100 mmHg (02/25/23 11:30 AM) 87 mmHg (02/25/23 11:15 AM) Blood Pressure Invasive [90-140/60-90 mmHg] 131/81mmHg (02/25/23 9:05 AM) Weight 57.9 kg (02/25/23 9:05 AM) Height 160 cm (02/25/23 9:05 AM) Social History Social History Type Response Tobacco Never tobacco user T obacco Use:. Sex Discharge instructions * Anna Nicholas RN: PERFORM Event Display: Discharge Instructions Authored Date: [id number] CHELSEA PERES :1990 Age:32 years Sex:Female Visit Date:02/25/2023 Primary Care Physician: Rita Quiroga MD Hospital Discharge Instructions We would like to thank you for allowing us to assist you with your healthcare needs. The following includes patient education materials and information regarding your injury/illness. Your Next Steps Instructions From Your Care Team Orthopedic Surgery Discharge Instructions keep dressing on until follow up in office ok yo use hand for light activities sling PRN ?? Pain Control ?Take your pain relief medication when discomfort first begins. ?Can use stool softener while taking the narcotic to avoid problems with constipation. ?It is okay to start aiey-yxv-curyccx Naproxen or Ibuprofen??immediately ?? Call your doctor if you: ?Develop a fever over 101 degrees. ?Have increased redness, warmth, discharge, swelling, or hardness around the operative site. ?Circulation changes such as tingling, numbness or your fingers/toes appear blue or white. ?Your pain is not adequately controlled, despite taking your pain medication routinely. ?? On the day of surgery, or while taking narcotic pain medication: No driving, operating power equipment,?? drinking alcohol,?? or taking mood altering drugs? Apply warm, moist compress to IV site if sore or red, for 20 minutes, 4 times a day, for 2-3 days.?? Call your doctor if IV site soreness or redness persists. In the event of any problems after surgery, contact your doctor or the Emergency Room @ . Ortho Office: [phone]?? Scheduled Future Appointments Friday 2:00 PM EDT ?? Medications What How Much When Instructions Next Dose New HYDROcodone-acetaminophen (!-[place] 5 mg-325 mg oral tablet) 1 tab Oral (given by mouth) Every 6 hours as needed for as needed for pain Pickup at [facility] New promethazine (Phenergan 25 mg oral tablet) 1 tab Oral (given by mouth) Every 6 hours as needed for as needed for nausea/vomiting Pickup at [facility] Unchanged escitalopram (escitalopram 10 mg oral tablet) 1 tab Oral (given by mouth) Every day Unchanged levonorgestrel-ethinyl estradiol (Aubra) Unchanged loratadine (Claritin Liqui-Gels 10 mg oral capsule) Unchanged montelukast (montelukast 10 mg oral tablet) Pharmacy Information [facility]: [address] [place] [address] [phone] Your Summary Your Care Team Admitting Physician - Boo Pringle MD Attending Physician - Boo Pringle MD Primary Care Physician - Rita Quiroga MD Referring Physician - Rita Quiroga MD Patient Name:CHELSEA PERES I have received this information and my questions have been answered. Patient/Chess Instructor Name: Patient/Chess Instructor Signature: Relationship to Patient: Witness Name/Signature: Date: Electronically Signed on: 02/25/2023 11:14 EDTSigned by:FRANCE History and physical note * Jossy Culver: PERFORM Event Display: History and Physical Authored Date: [id number] JA CHELSEA :1990 Age:32 years Sex:Female Primary Care Physician: Rita Quiroga MD Visit Date:??01/06/2023 [1] ? Chief Complaint Hearing Aid Fitter- Left wrist pain, XR in PACS History of Present Illness New patient to myself see me today for left wrist pain with a mass on the dorsal aspect feels that this may have been related to an injury while??they occurred while mountain biking over the summer. ??Notes a little bit of pain at times but not a lot of pain of recent. Review of Systems Constitutional:?No??fevers,?No??chills,?No??sweats Eye:?No??recent visual problems ENT:?No??ear pain,?No??nasal congestion,?No??sore throat Respiratory:?No??shortness of breath,?No??cough Cardiovascular:?No??Chest pain,?No??palpitations,?No??syncope Gastrointestinal:?Nonausea,?No??vomiting,?No??diarrhea Genitourinary:?No??hematuria Zachary/Lymph:?No??bruising tendency,?No??swollen lymph glands Endocrine:?No??excessive thirst,??No??excessive hunger Musculoskeletal:??No??back pain,??No??neck pain,??No??joint pain,??No??muscle pain,??No??decreased range of motion Integumentary:?No??rash,?No??pruritus,?No??abrasions Neurologic: Alert & oriented X 4 Psychiatric:?No??anxiety,?No??depression Physical Exam ?Vitals & Measurements ?HT:??160.02??cm?? WT:??58.83??kg?? BMI:??22.97?? BSA:??1.62?? Well-nourished well-developed no acute distress alert and oriented appearing stated age. ??Has normal shoulder elbow wrist hand range of motion normal capillary refill distally no open wounds signs of erythema or infection.?? Negative Olga shuck Layton ballottement Briceno's maneuver no pain at the DRUJ no pain at the Pisa triquetral joint. ??Has a dorsal mass that is soft and has appearance of ganglion cyst at the radial scapholunate interval.?? Review of x-rays are negative for fracture dislocation intercarpal malalignment or arthritic change Assessment/Plan 1.??Left wrist pain??M25.532 ?Left wrist pain dorsal ganglion cyst options watchful waiting??therapy injection aspiration or surgical removal. ??At this time she is going to watch this does not want to do anything invasive atthis point but if it does worsen she will call us in the future and we will plan on seeing her backagain at her request. Problem List/Past Medical History Ongoing ?Abdominal pain, left upper quadrant ??Allergic rhinitis ??Arthritis of finger ??Asthma, mild persistent ??Chronic tension headaches ??Depression ??Family history of hemochromatosis ??GERD without esophagitis ??History of blood transfusion ??Hx of ectopic ??Hx of Lyme disease ??Left wrist pain ??Palpitations ??Pelvic pain ??Tinnitus, left ??Viral URI ??Wrist pain, left Historical ?No qualifying data Medications ??Aubra ??Claritin Liqui-Gels 10 mg oral capsule ??escitalopram 10 mg oral tablet, 10 mg= 1 tab, Oral, Daily ??montelukast 10 mg oral tablet ??pantoprazole 40 mg oral delayed release tablet Allergies No Known Allergies Social History Electronic Cigarette/Vaping ??Electronic Cigarette Use: Never. Tobacco ??Never tobacco user Tobacco Use:. [2] [1]??Office Visit Note; Boo Pringle MD 01/06/2023 14:42 EST [2]??Office Visit Note; Boo Pringle MD 01/06/2023 14:42 EST Electronically Signed on 02/11/23 11:55 AM Jossy Culver Electronically Signed on 02/11/23 01:00 PM Boo Pringle MD * Boo Pringle MD: PERFORM Event Display: History and Physical Authored Date: Patient seen in preoperative hold no change in generalized health status H&P updated Electronically Signed on 02/25/23 11:27 AM Boo Pringle MD Patient Care team information Care Team Personnel Name: Rita Quiroga MD Position: No Access Member Role: Primary Care Physician Address: Address: [address] [place] [address]- Care Team Related Persons Name: BREANN SRINIVASAN
--- OUTSIDE RECORDS SUMMARY | 2024-06-10 13:55 | XMS_ITS | Encounter Summary ---
Author Organization [facility] Address [address] [place] [address] Care Team Providers Care Dinkey Mechanic Name Role Phone Rita Quiroga MD Primary Care Provider [phone] Encounter Details Date Type Department Care Team (Late st Contact Info) Description 04/20/2017 10:33 EDT - 04/20/2017 23:59 EDT Hospital Encounter [address] [address] Jenifer Baker MD [address] [facility], [facility] [address] [place] [address] Discharge Disposition: Home or Self Care Social History Tobacco Use Types Packs/Day Years Used Date Smoking Tobacco: Never Alcohol Use Standard Drinks/Week Comments Yes 0 (1 standard drink = 0.6 oz pur e alcohol) 5 to 5 per week Comments Yes Sex and Gender Information Value Date Recorded Sex Assigned at Not on file Gender Identity Not on file Sexual Orientation Not on file documented as of this encounter Discharge Diagnoses Diagnosis O00.10 Tubal without intrauterine -O00.10[ICD-10-CM] documented in this encounter Medications at Time of Discharge Medication Sig Dispensed Refills Start Date End Date escitalopram oxalate (LEXAPRO) 10 mg tablet Take 10 mg by mouth daily. fexofenadine (GRIS) 60 mg tablet Take 60 mg by mouth 2 times daily. ranitidine (ZANTAC) 150 mg tablet Take 150 mg by mouth 2 times daily. documented as of this encounter Discharge Disposition Disposition Code Departure Means Destination Home or Self Snf documented in this encounter Plan of Treatment Not on file documented as of this encounter Visit Diagnoses Not on filedocumented in this encounter Care Teams Dinkey Mechanic Relationship Specialty Start Date End Date Rita Quiroga MD [address] [place] [phone] PCP - General 04/13/17 documented as of this encounter
--- OUTSIDE RECORDS SUMMARY | 2024-06-10 13:55 | XMS_ITS | Encounter Summary ---
Author Organization [facility] Address [address] [place] [address] Care Team Providers Care Heel Burnisher Name Role Phone Rita Quiroga MD Primary Care Provider [phone] Reason for Visit * Reason Comments New Patient Visit FBSE Skin Lesion Nose Encounter Details Date Type Department Care Team (Late st Contact Info) Description 04/23/2017 15:40 EDT Office Visit [facility] Dermatology [address] [facility] [address] [place] [address] Symone Moore MD PhD [address] [facility] [place] [phone] Niall Garcia MD [address] [place] [phone] Spider angioma (Primary Dx) Social History Tobacco [...] as of this encounter Progress Notes * Claudine Bolton - 04/23/2017 1540 EDT Review of Systems Constitutional: Negative for [...] sleep disturbance. The patient is not nervous/anxious. Claudine Bolton 04/23/2017 15:41 * Niall Garcia MD - 04/23/2017 4340 EDT Dermatology Resident Clinic Visit Note Chief Complaint Patient presents with ??? New Patient Visit FBSE ??? Skin Lesion Nose Last Dermatology office visit: New patient Subjective: Ms. Beltran is a 27 y.o. female who presents for new evaluation and treatment for a persistent red spot on her nasal dorsum for a couple of years. It is asymptomatic, and she has not treated it with any topical medications. She wonders if it is related to sun exposure. Of note, her unclehad melanoma. She has no other cutaneous complaints or concerns at this time. Skin cancer risk factors include: sun exposure For full Medical, Surgical, Family, and Social histories, please see the History section of this encounter in the electronic chart which I have personally reviewed. For Review of Systems, Medications and Allergies, please see those sections of this encounter in the electronic chart which I have also reviewed. She has a current medication list which includes the following prescription(s): escitalopram oxalate, fexofenadine, and ranitidine. She has No Known Allergies. Objective: VS: There were no vitals taken for this visit. Ms. Beltran is healthy, well developed, well-nourished and in no acute distress female sitting on the examination table with a normal affect. She is alert and oriented to person, place and time. Shehas Slaughter type III skin. Cutaneous full body examination including the hair, scalp, face, eyelids, lips, neck, chest, back, abdomen, genitalia, all four extremities, hands, feet, digits and nails was performed.The examination was normal with the addition of the following comments: There were no lesions suspicious for malignancy. 1. Nasal dorsum - red spider angioma 2. Trunk and extremities - very few brown symmetric macules and papules Assessment: 1. Spider angioma 2. Few benign nevi Plan: 1. Offered pulsed-dye laser for $100 for her spider angioma. 2. Education and reassurance about the abovementioned diagnoses and the remainder of her skin examination. 3. The nature of sun-induced photo-aging and skin cancers is discussed. Sun avoidance, protective clothing, and the use of 30-SPF sunscreens is advised. Observe closely for skin damage/changes, and call if such occurs. She will f/u PRN or in the interim should problems arise. Niall Garcia MD 04/23/2017 17:38 Attestation Statement: I saw and examined the patient with the resident/fellow. I agree with the findings and plan of care documented in the resident's/fellow's note. Symone Moore MD Dermatology [facility] documented in this encounter Plan of Treatment Not on file documented as of this encounter Visit Diagnoses Diagnosis Spider angioma- Primary Nevus, non-neoplastic documented in this encounter Care Teams Heel Burnisher Relationship Specialty Start Date End Date Rita Quiroga MD [address] [place] [phone] PCP - General 04/13/17 documented as of this encounter
--- OUTSIDE RECORDS SUMMARY | 2024-06-10 13:55 | XMS_ITS | Clinical Summary ---
Author Organization [facility] Address [address] [place] [address] Care Team Providers Care Bankruptcy Manager Name Role Phone Rita Quiroga MD Primary Care Provider [phone] Allergies No known active allergies Medications Medication Sig Dispensed Refills Start Date End Date Status escitalopram oxalate (LEXAPRO) 10 mg tablet Take 10 mg by mouth daily. Active ranitidine (ZANTAC) 150 mg tablet Take 150 mg by mouth 2 times daily. Active fexofenadine (GRIS) 60 mg tablet Take 60 mg by mouth 2 times daily. Active LORATADINE (CLARITIN ORAL) Take by mouth. 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 Blepharitis of both eyes 10/05/2010 Myopia 10/05/2010 Encounter for insertion or r emoval of intrauterine contraceptive device 09/13/2009 General counseling and advice on contraceptive m anagement 07/27/2009 Overview: ICD10 Update Auto Replacement Anxiety disorder 05/24/2009 IBS (irritable bowel syndrome) 05/24/2009 Overview: Since high school. Gastroesophageal reflux disease 05/24/2009 Overview: Since high school. 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 Myopia Vitreous syneresis Family History Medical History Relation Comments Glaucoma Maternal Grandmother Relation Status Comments Father Alive Maternal Grandmother Alive Mother Alive Social History Tobacco Use Types Packs/Day Years [...] on file Sexual Orientation Not on file Obstetrics History Para Term AB IAB SAB Ectopic Multiple Livin g Live Births 1 1 1 Date Outcome GA Total Labor Labor//3rd Weight Sex Type Anes PTL Kiersten A1 A5 Name Clin Ectopic ECTOPIC Comments:IUD in place, treated with Methotrexate Last Filed Vital Signs Vital Sign Reading Time Taken Comments Blood Pressure 108/56 12/11/2017 1507 EST Pulse 72 04/14/2017 0029 EDT Temperature 37.2 ??C (99 ??F) 04/13/2017 2207 EDT Respiratory Rate 16 04/14/2017 0029 EDT Oxygen Saturation 99% 04/14/2017 0029 EDT Inhaled Oxygen Concentration - - Weight 53.5 kg (118 lb) 05/12/2017 0857 EDT Height 157.5 cm (5' 2) 12/11/2017 1507 EST Body Mass Index 21.58 05/12/2017 0857 EDT Plan of Treatment Health Maintenance Due Date Last Done Comments Hepatitis B Vaccine (1 of 3 - 19+ 3-dose series) 03/24 COVID-19 Vaccine ( - 2022-24 season) 2023 Hepatitis C Screen Completed 03/10/2024 Medical Devices Implanted Type Area Room Service Server Device Identifier Shelf Expiration Date Model / Serial / Lot Paragard Iud-Mr Safe To 3t Description:Per Dr. Dyer's office pt has a Paraguard IUD. These are MRI Safe to 3T. ECW 01/17/12 Procedures Procedure Name Priority Date/Time Associated Diagnosis Comments HEPATITIS C AB W REFLEX TO HCV RNA BY PCR Routine 03/10/2024 16:00 EDT from Last 3 Months or Most Recently Relevant to Health Maintenance Results * HEPATITIS C AB W REFLEX TO HCV RNA BY PCR (03/10/2024 16:00 EDT) Hep C Antibody Negative Negative 03/11/2024 19:02 EDT [facility] Blood VENOUS BLOOD / Unknown 03/10/2024 16:00 EDT 03/11/2024 17:31 EDT Provider Outr Resulting Lab CHEMISTRY & BLOOD GAS ORDERABLES [facility] [address] [place] [address] from Last 3 Months or Most Recently Relevant to Health Maintenance Care Teams Bankruptcy Manager Relationship Specialty Start Date End Date Rita Quiroga MD [address] [place] [phone] PCP - General 04/13/17
--- OUTSIDE RECORDS SUMMARY | 2024-06-10 13:55 | XMS_ITS | Encounter Summary ---
Author Organization [facility] Address [address] [place] [address] Care Team Providers Care Copy Holder Name Role Phone Rita Quiroga MD Primary Care Provider Reason for Visit * Reason Onset Date Comments Ectopic 04/24/2017 Encounter Details Date Type Department Care Team ([facility] Contact Info) Description 04/24/2017 Telephone [facility] Women's Services - [address] [address] Leni Delgado RN Ectopic Social History Tobacco [...] Miscellaneous Notes * Telephone Encounter - Leni Delgado RN - 04/24/2017 7316 EDT Roxanne is wondering if it would be ok, with her dx, to go on a canoe trip this weekend; she would be doing low level activity and be about 45 minutes away from a hospital. Discussed with Dr. aBker and called Roxanne back to made here aware this would be OK for her to do. Encouraged to call with any additional questions/concerns. documented in this encounter Plan of Treatment Not on file documented as of this encounter Visit Diagnoses Not on filedocumented in this encounter Care Teams Copy Holder Relationship Specialty Start Date End Date Rita Quiroga MD [address] [place] [phone] PCP - General 04/13/17 documented as of this encounter
--- OUTSIDE RECORDS SUMMARY | 2024-06-10 13:55 | XMS_ITS | Encounter Summary ---
Author Organization [facility] Address [address] [place] [address] Care Team Providers Care Web Content Editor Name Role Phone Rita Quiroga MD Primary Care Provider [phone] Encounter Details Date Type Department Care Team (Late Contact Info) Description 05/12/2017 Phlebotomy Only [address] [address] Benefits Officer, Outpatient Routine screening for STI (sexually transmitted infection) (Primary Dx) Social History Tobacco Use Types [...] Procedure Name Priority Date/Time Associated Diagnosis Comments SYPHILIS SEROLOGY Routine 05/12/2017 9:3 7 EDT Routine screening for STI (sexually transmitted infection) HIV 1/2 ANTIGEN AND ANTIBODY, 4TH GENERATION Routine 05/12/2017 9:37 EDT Routine screening for STI (sexually transmitted infection) documented in this encounter Results * SYPHILIS SEROLOGY (05/12/2017 9:37 EDT) Syphilis Serology Negative 05/13/2017 13:24 EDT [facility] Comment:Reference Range: Neg ative Blood specimen (specimen) BLOOD SPECIMEN / Unknown 05/12/2017 9:37 EDT 05/12/2017 9:55 EDT Jenifer Baker MD IMMUNOLOGY AND S EROLOGY ORDERABLES Performing Organization Address [facility] Co de Phone Number [facility] [address] [place] [address] * HIV 1/2 ANTIBODY (05/12/2017 9:37 EDT) HIV 1/2 Antibody Negative Negative 05/12/20 12:31 EDT [facility] Comment: New methodology in use 03/18/17. Fourth generation assay performed on the girnarsoftaur. If acute HIV-1 infection is suspected in a high risk patient, submit plasma specimen for HIV-1 RNA quantification test. Blood specimen (specimen) BLOOD SPECIMEN / Unknown 05/12/2017 9:37 EDT 05/12/2017 9:55 EDT Jenifer Baker MD IMMUNOLOGY AND S EROLOGY ORDERABLES Performing Organization Address [facility] Co de Phone Number [facility] [address] [place] [address] documented in this encounter Visit Diagnoses Diagnosis Routine screening for STI (sexually transmitted infection)- Primary Screening examination for venereal disease documented in this encounter Care Teams Web Content Editor Relationship Specialty Start Date End Date Rita Quiroga MD [address] [place] [phone] PCP - General 04/13/17 documented as of this encounter
--- OUTSIDE RECORDS SUMMARY | 2024-06-10 13:55 | XMS_ITS | Encounter Summary ---
Author Organization [facility] Address [address] [place] [address] Care Team Providers Care Wall Steamer Name Role Phone iRta Quiroga MD Primary Care Provider [phone] Reason for Visit * Reason Onset Date Comments Labs Only 04/17/2017 Encounter Details Date Type Department Care Team ([facility] Contact Info) Description 04/17/2017 Orders Only [facility] Women's Services - [address] [address] Leni Delgado RN Tubal without intrauterine (Primary Dx) Social History Tobacco Use Types [...] as of this encounter Progress Notes * Leni Delgado, SANDRO - 04/17/2017 0967 EDT Ordered placed for day 4 beta hcg, due Friday04/20/17. documented in this encounter Plan of Treatment Not on file documented as of this encounter Results * (ABNORMAL) HCG FOR (04/20/2017 10:43 EDT) Quant Beta HCG, Preg 63(H) <5 mIU/ml 04/20/2017 13:22 EDT [facility] Comment: Reference Range: Negative = <5 Indeterminate = 5-25 recommend repeat in 48 hours. Positive = >25 Blood specimen (specimen) BLOOD SPECIMEN / Unknown 04/20/2017 10:43 EDT 04/20/2017 12:32 EDT Jenifer Baker MD CHEMISTRY & BLOO D GAS ORDERABLES Performing Organization Address City/State/[facility] Co de Phone Number [facility] [address] [place] [address] documented in this encounter Visit Diagnoses Diagnosis Tubal without intrauterine - Primary documented in this encounter Care Teams Wall Steamer Relationship Specialty Start Date End Date Rita Quiroga MD [address] [place] [phone] PCP - General 04/13/17 documented as of this encounter
--- OUTSIDE RECORDS SUMMARY | 2024-06-10 13:55 | XMS_ITS | Continuity of Care Document ---
Author Organization [facility] Address [address] [place] [address] Assessment No assessment recorded. Plan of Treatment Reminders Order Date Submit Date Provider Last Modified By Organization Details Last Modified Time Details Appointments Nurse Visit 2023 10:30A M [facility] Nursing Staff Not available Not available Not available Annual Wellness Exam 2024 02:20P M Rita Liu Not available Not available Not available Lab TSH, serum, reflex free T4 2023 [facility] (Registration ), [address] [place] [address] [place], [address], 06/10/2024 10:50:34 thyroglo bulin Ab, serum 2023 024 [facility] (Registration ), [address] [place] [address] [place], [address], 06/10/2024 10:50:33 thyroper oxidase Ab, serum 2023 024 [facility] (Registration ), [address] [place] [address] [place], [address], 06/10/2024 10:50:34 Referral None recorded . Procedures None recorded . Surgeries None recorded . Imaging None recorded . Medication Orders None recorded . Patient TargetsNo targets recorded. Patient InstructionsNo instructions recorded. Reason for Referral [employer] Referral for Irritable bowel syndrome loose stool daily, often crampy, IBS episodes are more frequent, Referring Physician: Rita Liu, Family Medicine, Encounter Date: 03/26/2024 Problems Name Status Onset Date Resolution Date Notes Provider Name and Address Organization Details Recorded Time Epidermoid cyst of skin Completed 201405/30/2015 Problem Code: L72.3; Problem Code Type: ICD-10; Not Available [facility] 3 04:48:05 Fatigue Completed 201505/21/2016 Problem Code: R53.83; Problem Code Type: ICD-10; Not Available [facility] 3 04:48:05 Disorder of skin and/or subcutaneous tissue Completed 201508/29/2016 07/05/2016 - Comments only - Rita Liu MD - pper her request, she is referred to dermatology. Problem Code: L98.9; Problem Code Type: ICD-10; Not Available [facility] 3 04:48:05 Traumatic or non-traumatic injury Completed 201507/26/2016 07/05/2016 - Comments only - Rita Liu MD - Of her foot, no evidence of fracture, simply monitoring for now. Problem Code: T14.8; Problem Code Type: ICD-10; Not Available [facility] 3 04:48:05 Localized enlarged lymph nodes Completed 201507/26/2016 07/05/2016 - Comments only - Rita Liu MD - This is not diffuse, has been only present for a few days, and is tender, most likely a reactive lymphadenopat hy. Return to clinic if she develops diffuse lymphadenopat hy Problem Code: R59.0; Problem Code Type: ICD-10; Not Available [facility] 3 04:48:05 Acute upper respiratory infection Completed 201611/03/2017 10/20/2017 - Comments only - Rita Liu MD - symptomatic treatment with tylenol or NSAIDs, discussed natural history of viral URI, sytmpoms up to 10-14 days. Problem Code: J06.9; Problem Code Type: ICD-10; Not Available [facility] 3 04:48:06 Adult health examination Active [address], [place], [address] , [facility] 4 22:19:38 Nonulcer dyspepsia Active 2017 PHILIP dahl, [facility] 4 10:25:18 Allergic rhinitis Completed 201708/27/2023 03/07/2023 - Comments only - Rita Liu MD - Better with singulair, and her cough is much better as well. Does continue to loratadine as well. Problem Code: J30.9; Problem Code Type: ICD-10; Not Available [facility] 3 04:48:06 Chronic tension-type headache Active [address], [facility] [id number] [place] [address] 3 15:42:23 Idiopathic osteoarthriti s Active [address], [facility] [address] , [facility] 4 22:20:00 Acute upper respiratory infection Completed 201802/08/2019 01/25/2019 - Comments only - Rita Liu MD - No evidence currently of bacterial superinfectio n, somatic treatment. Written information for trying to avoid sinusitis is written and given. Problem Code: J06.9; Problem Code Type: ICD-10; Not Available [facility] 3 04:48:06 Acute upper respiratory infection Completed 201806/16/2019 Problem Code: J06.9; Problem Code Type: ICD-10; Not Available [facility] 3 04:48:07 Fatigue Completed 201806/16/2019 06/02/2019 - Comments only - Rita Liu MD - Will check CBC. She has been anemic in the past. Problem Code: R53.83; Problem Code Type: ICD-10; Not Available [facility] 3 04:48:07 Anemia Completed 201806/16/2019 Problem Code: D64.9; Problem Code Type: ICD-10; Not Available [facility] 3 04:48:07 Non-suppurati ve otitis media Completed 201806/16/2019 06/02/2019 - Comments only - Rita Liu MD - If symptoms worsen, I gave her a written prescription for amoxicillin 500 3 times daily to fill. Problem Code: H65.92; Problem Code Type: ICD-10; Not Available [facility] 3 04:48:07 Tinnitus of left ear Active 2018 ENT/hearing evaluation normal 2019 RITA LIU MD [address], [place], [address] , [facility] 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 Lung sounds clear today with good aeration, no cough heard during patient encounter. Encouraged covering mouth/nose while running to avoid cold air and allergy symptom mgmt. Advised of red flag sx requiring emergency care (difficulty breathing); encouraged f/u if cough or tightness in chest while running persists Problem Code: R05; Problem Code Type: ICD-10; Not Available [facility] 3 04:48:08 Asteatosis cutis Completed 201812/13/2019 11/29/2019 - Comments only - Shelia Mary Gold MET[employer] OR [employer]ER - Due to history of eczema as a child and current presentation, likely eczema. Encouraged use of emollient cream and protecting from cold air. Problem Code: L85.3; Problem Code Type: ICD-10; Not Available [facility] 3 04:48:08 Mild intermittent asthma Active 2019 LOUIE Storey - [facility] 4 10:25:14 Contraception care management Active 2019 PHILIP dahl [facility] 4 10:22:54 Left upper quadrant pain Completed 202009/12/2021 08/29/2021 - Comments only - Rita Liu MD - With perhaps a bit of nausea. Labs were drawn today including liver function tests and lipase, will get an abdominal ultrasound, and given possibility that this is some atypical reflux, will start omeprazole 20 mg daily. She prefers to get this [id number] ter. Problem Code: R10.12; Problem Code Type: ICD-10; Not Available [facility] 3 04:48:08 Nausea Completed 202009/12/2021 Problem Code: R11.0; Problem Code Type: ICD-10; Not Available [facility] 3 04:48:08 Palpitations Active 2021 reassuring holter monitors 12/2021 and 10/2023- PAC and PVCs metoprolol 10/2023 RITA LIU MD [facility] [address], [place], [address] [facility] 4 22:21:38 Irritable bowel syndrome Active 2022 PHILIP dahl [facility] 4 10:25:02 Acute vaginitis Completed 202206/30/2023 06/16/2023 - Comments only - Rita Liu MD - vaginal screen obtained today. Problem Code: N76.0; Problem Code Type: ICD-10; Not Available [facility] 3 04:48:09 Anxiety disorder Active 2022 PHILIP dahl [facility] 4 10:25:50 Pelvic and perineal pain Completed 202003/07/2023 Problem Code: R10.2; Problem Code Type: ICD-10; Not Available [facility] 3 04:48:10 Gastroesophag eal reflux disease without esophagitis Completed 201708/27/2023 06/02/2019 - Comments only - Rita Liu MD - Continue with ranitidine. Problem Code: K21.9; Problem Code Type: ICD-10; Not Available [facility] 3 04:48:10 Pain of left knee joint Completed 201809/13/2020 Problem Code: M25.562; Problem Code Type: ICD-10; Not Available [facility] 3 04:48:10 Bilateral disorder of Eustachian tubes Completed 201803/15/2020 Problem Code: H69.83; Problem Code Type: ICD-10; Not Available [facility] 3 04:48:10 Pain of left wrist Completed 202003/07/2023 Problem Code: M25.532; Problem Code Type: ICD-10; Not Available [facility] 3 04:48:10 Pain of right shoulder joint Completed 201709/13/2020 Problem Code: M25.511; Problem Code Type: ICD-10; Not Available [facility] 3 04:48:11 Vaginal bleeding Completed 201704/30/2018 Not Available [facility] 3 04:48:11 Family history of hemochromatos is Completed 201508/27/2023 RITA LIU MD [facility] [address], [place], [address] , [facility] 4 22:16:04 Health condition feared but not present Completed 202206/16/2023 Problem Code: Z71.1; Problem Code Type: ICD-10; Not Available [facility] 3 04:48:11 Acute upper respiratory infection Completed 202103/07/2023 Problem Code: J06.9; Problem Code Type: ICD-10; Not Available [facility] 3 04:48:11 Uncomplicated mild persistent asthma Completed 201908/27/2023 03/15/2020 - Comments only - Rita Liu MD - Continue wtih the singulair. Will try to control her nose/allergie s as much as possible with neti pot and flonase daily. Referral to Dr. Slaughter for allergy testing. Use albuterol prior to exercise. If symptoms persist, follow up and will consider adding inhaled steroid with or without LABA. Problem Code: J45.30; Problem Code Type: ICD-10; Not Available [facility] 3 04:48:12 History of Lyme disease Active 2023 PHILIP dahl, [facility] 4 10:24:38 Rhinitis Active 2017 allergic MD [address], [facility] [id number] [place] [address] 4 22:17:08 Tension-type headache Active 2018 Stormy Seelias dahl, [facility] 4 14:03:32 Family history of hemochromatos is Active [address], [facility] [address] , [facility] 4 22:16:04 Past history of ectopic Active 2016 while on paraguard, treated with medications. MD Fabian [address], [facility] [id number] [place] [address] 4 22:16:57 Recurrent major depression Active [address], [facility] [address] , [facility] 4 22:19:29 Subclinical hypothyroidis m Active [address], [facility] [address] , [facility] 4 22:28:28 Problem Notes None recorded. Medical Equipment None Reported. Medications Name Sig Start Date Stop Date Status Note LastModified by Organization Details LastModified Time amoxicill in 500 mg capsule Take 1 cap by mouth three times daily 06/09 completed Not Available Not Available Not Available Mirena 21 mcg/24 hr (up to 8 years) 52 mg intrauter ine device 01/25 completed Not Available Not Available Not Available Augmentin 875 mg-125 mg tablet Take 1 tab by mouth twice daily. for 10 days 06/02 completed Not Available Not Available Not Available doxycycli ne hyclate 100 mg capsule Take 2 capsule by mouth single dose 08/02 completed Not Available Not Available Not Available levonorge strel-eth inyl estradiol 0.1 mg-20 mcg tablet Take 1 tablet by mouth every day 2023 active Not Available Not Available Not Avai lable ranitidin e 300 mg tablet 1 TAB daily 2013 active Not Available Not Available Not Avai lable hydrocodo ne 5 mg-acetam inophen 325 mg tablet TAKE ONE TABLET BY MOUTH EVERY 6 HOURS NEEDED FOR PAIN 02/18 completed Not Available Not Available Not Available prednison e 20 mg tablet TAKE TWO TABLETS BY MOUTH EVERY DAY FOR 10 DAYS 02/18 completed Not Available Not Available Not Available Vitamins B Complex capsule 1 daily 09/13 completed Not Available Not Available Not Available levothyro xine 25 mcg tablet Take 1 tablet every day by oral route. 2023 active Not Available Not Available Not Avai lable alprazola m 0.25 mg tablet Take 1 tablet by mouth once a day as needed for flying. 2023 active Not Available Not Available Not Avai lable benzonata te 100 mg capsule TAKE ONE CAPSULE BY MOUTH THREE TIMES A DAY FOR 10 DAYS 02/18 completed Not Available Not Available Not Available pantopraz ole 40 mg tablet,de layed release 02/27 completed Not Available Not Available Not Available hyoscyami ne sulfate 0.125 mg tablet TAKE ONE TABLET BY MOUTH FOUR TIMES A DAY NEEDED FOR SPASM active Not Available Not Available No t Available triamcino lone acetonide 0.1 % topical ointment APPLY TOPICALL Y TO THE AFFECTED AREA DAILY FOR 7 DAYS active [facility] for lichen sclerosi s Not Available Not Available Not Available ranitidin e 300 mg capsule Take 1 by mouth daily 11/03 completed Not Available Not Available Not Available hyoscyami ne 0.125 mg sublingua l tablet Place 1 tablet 4 times a day by sublingu al route before meal(s). active [facility] Not Available Not Available No t Available promethaz ine 25 mg tablet TAKE ONE TABLET BY MOUTH EVERY 6 HOURS NEEDED FOR NAUSEA AND VOMITING 02/18 completed Not Available Not Available Not Available omeprazol e 20 mg capsule,d elayed release Take 1 capsule by mouth once a day 12/21 completed Not Available Not Available Not Available monteluka st 10 mg tablet Take 1 tablet every day by oral route, for allergie s. 2023 active Not Available Not Available Not Avai lable ergocalci ferol (vitamin D2) 1,250 mcg (50,000 unit) capsule 1CAP twice weekly 02/14 completed Not Available Not Available Not Available estradiol 0.01% (0.1 mg/gram) vaginal cream APPLY AROUND LABIA, PERINEUM AND VAGINAL OPENING 0.25G DAILY active Not Available Not Available No t Available albuterol sulfate HFA 90 mcg/actua tion aerosol inhaler INHALE TWO PUFFS BY MOUTH EVERY 4 TO 6 HOURS NEEDED 03/10 completed Not Available Not Available Not Available Vitamin B-12 1,000 mcg tablet 1 tab daily 2019 active Not Available Not Available Not Avai lable Cryselle (28) 0.3 mg-30 mcg tablet Take 1 tablet by mouth once a day 08/29 completed Not Available Not Available Not Available escitalop jose m 10 mg tablet Take 1.5-2 tablets by mouth every day 2023 active Not Available Not Available Not Avai lable Sprintec (28) 0.25 mg-35 mcg tablet Take 1 tab by mouth daily 09/13 completed Not Available Not Available Not Available Prilosec OTC 20 mg tablet,de layed release 1 CAP daily 07/22 completed Not Available Not Available Not Available escitalop jose m 5 mg tablet Take 1 tab by mouth daily 2013 active Not Available Not Available Not Avai lable metoprolo l tartrate 25 mg tablet Take 1 tablet by mouth twice a day as needed for palpitat ions 2023 active Not Available Not Available Not Avai lable Vitamin D 1TAB daily 10/20 completed Not Available Not Available Not Available Mirena 01/19 completed Not Available Not Available Not Available Implanon 68 mg subdermal implant 04/30 completed Not Available Not Available Not Available Zyrtec 10 mg capsule 1 tablet a day by mouth 01/25 completed Not Available Not Available Not Available Probiotic 1 tab daily 07/05 completed Not Available Not Available Not Available Claritin Liqui-Gel 10 mg capsule Take 1 tab by mouth daily 2018 active Not Available Not Available Not Avai lable OptiChamb er Fe [facility] spacer USE DIRECTED 03/10 completed Not Available Not Available Not Available Vitals None Recorded Social History Question Answer Notes LastModified by Organization Details LastModified Time Tobacco Smoking Status Never Smoker occassionally in the past NICOLETTE HELTON LPN null, [place] - [facility]. 03/10/2024 15:12:04 Would You Say That, In General, Your Health Is Good Information not available 03/10/2024 Women Aged 18-50 - Would You Like To Become In The Next Year? (Female Patients Only) Yes Information not available 03/10/2024 How Often Does Anyone, Including Family, Physically Hurt You? Never Information not available 03/10/2024 How Often Does Anyone, Including Family, Insult Or Talk Down To You? Never Information not available 03/10/2024 How Often Does Anyone, Including Family, Threaten You With Harm? Never Information not available 03/10/2024 How Often Does Anyone, Including Family, Scream Or Curse At You? Never Information not available 03/10/2024 Within The Past 12 Months, You Worried That Your Food Would Run Out Before You Got Money To Buy More. Never True Information not available 03/10/2024 Within The Past 12 Months, The Food You Bought Just Didn't Last And You Didn't Have Money To Get More. Never True Information not available 03/10/2024 How Hard Is It For You To Pay For The Very Basics Like Food, Housing, Medical Care, And Heating? Would You Say It Is: Not Hard At All Information not available 03/10/2024 In The Past 12 Months, Has Lack Of Reliable Transportation Kept You From Medical Appointments, Meetings, Work Or From Getting Things Needed For Daily Living? No Information not available 03/10/2024 What Is Your Housing Situation Today? I Have Housing. Information not available 03/10/2024 How Often In The Past Year Have You Used Marijuana (including Smoking, Vaping, Dabbing, Or Edibles)? Monthly Or Less Information not available 03/10/2024 How Often In The Past Year Have You Used Prescription Medications That Were Not Prescribed To You? Never Information not available 03/10/2024 How Often In The Past Year Have You Taken Your Own Prescription Medication More Than The Way It Was Prescribed Or For Different Reasons Than Its Intended Purpose? Never Information not available 03/10/2024 How Often In The Past Year Have You Used Other Drugs (for Example, Heroin, Cocaine, Meth, Salvia, Inhalants)? Never Information not available 03/10/2024 Have You Ever Used IV Drugs? No Information not available 03/10/2024 Date Of Most Recent SBINS 03/10/2024 Information not available 03/10/2024 What Was The Date Of Your Most Recent Tobacco Screening? 03/10/2024 Information not available 03/10/2024 Has Tobacco Cessation Counseling Been Provided? No Information not available 03/10/2024 Do You Or Have You Ever Used Any Other Forms Of Tobacco Or Nicotine? No Information not available 03/10/2024 Sex: Female Functional Status None recorded. Mental Status None recorded. Family History Relationship Description Onset Age of this Age Resolved Age Notes Father Family history of Depression Mother Family history of Depression Notes:*Problem: Mother: Des gerardo age 59, depression tx, Father: Alive age 66, depression tx Sisters: 1 healthy Brothers: None Children: None Family History of: Hypertension: Yes Paternal GF Hyperlipidemia: Yes Paternal side Coronary heart disease: Yes Maternal GF-had an unhealthy life style Diabetes mellitus: No Breast cancer: No Colorectal cancer: Yes Paternal GM Prostate cancer: No Alcoholism: Yes Maternal GF and 2 Uncles Mental illness: Yes Depressions Other: Yes Maternal GM- Hypothyroidism. Paternal GF-Parkinson Medical History No medical history recorded. Gynecological HistoryNo gynecological history recorded. Obstetrics History GPAL:G 0 P 0 0 0 0 Immunizations Vaccine Type Date Status Provider Name and Address Organization Details Recorded Time MMR 07/28/1990 completed Not Available [facility] 05:27:43 MMR 09/27/1998 completed Not Available [facility] 05:27:44 DTaP, unspecified formulation 05/13/1994 completed Not Available [facility] 10/10/2023 05:27:44 DTaP, unspecified formulation 1989 completed Not Available [facility] 10/10/2023 05:27:44 DTaP, unspecified formulation 1989 completed Not Available [facility] 10/10/2023 05:27:44 DTaP, unspecified formulation 10/02/1990 completed Not Available [facility] 10/10/2023 05:27:44 DTaP, unspecified formulation 1989 completed Not Available [facility] 10/10/2023 05:27:44 meningococcal ACWY, unspecified formulation 07/02/2007 completed Not Available [facility] 10/10/2023 05:27:44 Tdap 02/08/2011 completed Not Available [facility] 05:27:44 Tdap 08/29/2021 completed Not Available [facility] 05:27:45 HPV, unspecified formulation 04/28/2008 completed Not Available [facility] 10/10/2023 05:27:45 HPV, unspecified formulation 07/02/2007 completed Not Available [facility] 10/10/2023 05:27:45 HPV, unspecified formulation 10/20/2007 completed Not Available [facility] 10/10/2023 05:27:45 Td(adult) unspecified formulation 09/24/2004 completed Not Available [facility] 10/10/2023 05:27:45 Influenza, split virus, quadrivalent, PF 08/29/2021 completed Not Available [facility] 10/10/2023 05:27:45 Influenza, split virus, quadrivalent, PF 09/13/2020 completed Not Available [facility] 10/10/2023 05:27:45 Influenza, MDCK, trivalent, PF 10/11/2015 completed Not Available [facility] 10/10/2023 05:27:45 COVID-19, mRNA, LNP-S, PF, 30 mcg/0.3 mL dose 02/09/2021 completed Not Available [facility] 10/10/2023 05:27:45 COVID-19, mRNA, LNP-S, PF, 30 mcg/0.3 mL dose 03/09/2021 completed Not Available [facility] 10/10/2023 05:27:46 SARS-COV-2 (COVID-19) vaccine, UNSPECIFIED 08/28/2022 completed Not Available [facility] 10/10/2023 05:27:46 SARS-COV-2 (COVID-19) vaccine, UNSPECIFIED 09/24/2021 completed Not Available [facility] 10/10/2023 05:27:46 Hep B, unspecified formulation 07/04/2000 completed Not Available [facility] 10/10/2023 05:27:46 Hep B, unspecified formulation 07/27/1997 completed Not Available [facility] 10/10/2023 05:27:46 Hep B, unspecified formulation 10/08/1999 completed Not Available [facility] 10/10/2023 05:27:46 Hep A, unspecified formulation 12/03/2006 completed Not Available [facility] 10/10/2023 05:27:46 Hep A, unspecified formulation 05/02/2005 completed Not Available [facility] 10/10/2023 05:27:46 influenza, unspecified formulation 09/10/2018 completed Not Available [facility] 10/10/2023 05:27:46 influenza, unspecified formulation 09/14/2019 completed Not Available [facility] 10/10/2023 05:27:47 polio, unspecified formulation 05/03/1994 completed Not Available [facility] 10/10/2023 05:27:47 polio, unspecified formulation 1989 completed Not Available [facility] 10/10/2023 05:27:47 polio, unspecified formulation 1989 completed Not Available [facility] 10/10/2023 05:27:47 COVID-19, mRNA, LNP-S, PF, sb-sucrose, 30 mcg/0.3 mL 09/24/2023 completed Not Available [facility] 12/12/2023 05:33:14 Past Encounters Encounter ID Performer Location Encounter Start Date Encounter Closed Date Diagnosis/Indication Diagnosis SNOMED-CT Code [id number] Lynne Drake RN [facility] [address] [place] [address] 06/10/2024 10:23:38 06/10/2024 10:36:34 Hypothyroidism [id number] Health Concerns Section Related Observation LastModified by Organization Detai ls LastModified Time None Recorded Concern Status LastModified by Organization Details LastModified Time None Recorded Payers Encounter Date Sequence Insurance Name Policy Number Policy Cruz Covered Member ID Cruz Member ID Guarantor Name 06/10/2024 1 [place] Roxanne Beltran [id number] Roxanne Beltran OBGyn Episode No OBEpisode recorded.
--- OUTSIDE RECORDS SUMMARY | 2024-06-10 13:55 | XMS_ITS | Encounter Summary ---
Author Organization [facility] Address [address] [place] [address] Care Team Providers Care Trader Name Role Phone Rita Quiroga MD Primary Care Provider Reason for Visit * Reason Onset Date Comments Vaginal Bleeding 08/07/2017 Encounter Details Date Type Department Care Team (Late st Contact Info) Description 08/07/2017 Telephone [facility] - [address] [address] Lucía Busch RN Vaginal Bleeding Social History Tobacco Use Types Packs/Day Years [...] on file documented as of this encounter Ordered Prescriptions Prescription Sig Dispensed Refills Start Date End Da te levonorgestrel-ethinyl estradiol (AVIANE, ALESSE, LESSINA) 0.1-20 mg-mcg per tablet Take 1 Tab by mouth daily. 84 Tab 2 08/08/2017 12/11/2017 documented in this encounter Miscellaneous Notes * Telephone Encounter - Lucía Busch RN - 08/08/2017 1632 EDT Call to pt. Reviewed note below per Dr. Herzog. Pt will start on OCP and take for 2-3 months. Shewill call with any questions or concerns. * Telephone Encounter - Jenifer Baker MD - 08/08/2017 1004 EDT Yes, please send an Rx for Sushila to her pharmacy for 84 tabs with 2 refills. I would recommend that she take it for 2-3 months and then stop to see if her bleeding improves after that. Thanks! Jenifer * Telephone Encounter - Lucía Busch RN - 08/07/2017 1624 EDT Call from pt.States had Nexplanon inserted (05/12/17) and has had bleeding like a period for past 2months. Denies heavy flow.Bleeding started beginning of May. Pt interested in using a low dose OCP to help decrease /stop the bleeding. States this was discussed at her appt. Will ask Dr. Herzog. Pt uses [facility]. OK to leave a detailed message on pt's phone if needed. documented in this encounter Plan of Treatment Not on file documented as of this encounter Visit Diagnoses Not on filedocumented in this encounter Care Teams Trader Relationship Specialty Start Date End Date Rita Quiroga MD [address] [place] [phone] PCP - General 04/13/17 documented as of this encounter
--- OUTSIDE RECORDS SUMMARY | 2024-06-10 13:55 | XMS_ITS | Encounter Summary ---
Author Organization Formerly [facility] Address [facility] [place] [address] Care Team Providers Care Senior Ui Ux Designer Name Role Phone Rita Quiroga MD Primary Care Provider Reason for Visit * Reason Comments Skin Check Encounter Details Date Type Department Care Team (Late st Contact Info) Description 06/13/2020 11:30 AM EDT Office Visit Dermatology at [facility] [address] [place] [phone] Laura Donovan MD [facility] [address] [place] [address] Solar lentigo; Multiple benign nevi; Melasma; Telangiectasia Social History Tobacco Use Types Packs/Day Years Used Date Smoking Tobacco: Never Smokeless Tobacco: Never Sex and Gender Information Value Date Recorded Sex Assigned at Not on file Gender Identity Not on file Sexual Orientation Not on file documented as of this encounter Progress Notes * Laura Donovan - 06/13/2020 11:30 AM EDT Images from the original note were not included. DERMATOLOGY - NEW PATIENT NOTE Date of service: 06/13/2020 Roxanne Beltran : 1990, 30 y.o. Chief Complaint: Chief Complaint Patient presents with ??? Skin Check HPI: Roxanne Beltran is a 30 y.o. female with the following concerns: Ms. Beltran is here today for a full skin exam. She notes some hyperpigmentation superior to her upper lip which has been present for roughly 5 months, she stopped taking sprintec because she read about this being a possible side-effect which didn't seem to improve the condition, she also tried a cream by [employer] with tretinoin and azelaic acid. Patient denies any pruritic, painful, bleeding, nonhealing, or growing/changing lesions of concern today. Relevant Skin History: - Okay to leave detailed message with results? 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 No current facility-administered medications for this visit. Allergies: Allergies not on file Review of Systems: - General: Feels well - Skin: No other skin concerns. Examination: - Constitutional: Patient was alert, well-appearing and in no noticeable distress. - Full Skin Exam: Skin examination of the scalp, face, ears, neck, back, chest, axillae, abdomen, right and left upper extremities, right and left lower extremities, hands, feet, and buttocks was normal with the exception of the findings listed below. Genitalia not examined. - MARE Augustin was present and on standby during my examination. Diagnosis/Skin findings/Assessment/Plan: #. Solar lentigines - 0.2-0.6cm light-brown evenly pigmented, well-demarcated macules on the face, trunk, and extremities - Patient reassured of benign nature, reinforced importance of sun protection #. Benign nevi - Scattered medium-brown macules and papules on the trunk and extremities. - Reassured of benign appearance on exam today. - Reviewed ABCDEs of melanoma - Recommend daily sun protection with protective clothing and SPF 30+ #. Melasma - Located on the superior cutaneous lip, and bilateral malar cheek, are light brown macules and patches - Reviewed the chronic nature of melasma, exacerbation with sunlight and hormones (OCP/) - Discussed the need for strict sun avoidance and the need for daily broad spectrum sunscreen SPF 50 or greater - Discussed treatment options including bleaching creams, laser therapy, and chemical peels. Reviewed risks of paradoxical hyperpigmentation with each of these options and cost of treatment as these are considered cosmetic procedures. Plan: - Recommend Cotz, or Coola Tinted Sunscreen - Continue azelaic acid BID -Rx: Hydroquinone 4% cream apply nightly to affected areas of the face combine in a pea sized amount with Tretinoin 0.05% -RX: Tretinoin 0.05% cream apply nightly to affected areas of the face combine in a pea sized amount with Hydroquinone 4% #. Telangiectasia - Bright red, well-demarcated papule on the nasal bridge - Reassured of benign nature - Discussed treatment options including V-Beam laser, or hyphercation RTC: in 8-10 weeks for melasma follow-up The following photos were obtained with patient consent: Note initiated by MARE Augustin. I, MARE Augustin, have performed the documentation for this encounter in the presence of and acting as a scribe for Laura Donovan MD. I performed the services which were documented by the scribe, and I agree with the accuracy of the documentation in this encounter. Laura Donovan MD Reviewed and signed by Laura Donovan MD Resident in Dermatology [facility] Patient seen in conjunction with staff database marketing manager: Sherrie March MD Department of Dermatology [facility] * Laura Donovan - 06/13/2020 11:30 AM EDT duplicate * Sherrie March MD - 06/13/2020 11:30 AM EDT I directly supervised Dr. Donovan during this office visit. Dr. Donovan presented the history and physical exam to me. I then saw and examined this patient with Dr. Donovan . We reviewed the history andpertinent details and I confirmed the physical findings. I agree with the details of the history and physical exam as documented in Dr. Donovans note. Sherrie March MD Staff Physician documented in this encounter Plan of Treatment Not on file documented as of this encounter Visit Diagnoses Diagnosis Solar lentigo Other dyschromia Multiple benign nevi Benign neoplasm of skin, site unspecified Melasma Other dyschromia Telangiectasia Other and unspecified capillary diseases documented in this encounter Care Teams Senior Ui Ux Designer Relationship Specialty Start Date End Date Rita Quiroga MD [address] [place] [address] PCP - General Family Medicine 06/13/20 documented as of this encounter
--- OUTSIDE RECORDS SUMMARY | 2024-06-10 13:55 | XMS_ITS | Encounter Summary ---
Author Organization [facility] Address [address] [place] [address] Care Team Providers Care Biopsychologist Name Role Phone Rita Quiroga MD Primary Care Provider Reason for Visit * Reason Onset Date Comments Contraception 11/21/2017 Encounter Details Date Type Department Care Team (Late Contact Info) Description 11/21/2017 Telephone [facility] Women's Services - [address] [address] Christy Stevens RN Contraception Social History Tobacco Use Types Packs/Day Years [...] encounter Miscellaneous Notes * Telephone Encounter - Christy Stevens RN - 11/21/2017 1301 EST Roxanne [facility] rRTCB has questions about Nexplanon. LV for Roxanne, advised returning her call. documented in this encounter Plan of Treatment Not on file documented as of this encounter Visit Diagnoses Not on filedocumented in this encounter Care Teams Biopsychologist Relationship Specialty Start Date End Date Rita Quiroga MD [address] [place] [phone] PCP - General 04/13/17 documented as of this encounter
--- OUTSIDE RECORDS SUMMARY | 2024-06-10 13:55 | XMS_ITS | Encounter Summary ---
Author Organization [facility] Address [address] [place] [address] Care Team Providers Care Counterintelligence/Humint Specialist Name Role Phone Rita Quiroga MD Primary Care Provider [phone] Encounter Details Date Type Department Care Team (Late st Contact Info) Description 03/11/2024 Lab Requisition [facility] Pathology & Laboratory Medicine - [address] [address] Outr Resulting Lab, Provider Social History Tobacco [...] RNA BY PCR Routine 03/10/2024 16:00 EDT documented in this encounter Results * HEPATITIS C AB W REFLEX TO HCV RNA BY PCR (03/10/2024 16:00 EDT) Hep C Antibody Negative Negative 03/11/2024 19:02 EDT [facility] Blood VENOUS BLOOD / Unknown 03/10/2024 16:00 EDT 03/11/2024 17:31 EDT Provider Outr Resulting Lab CHEMISTRY & BLOOD GAS ORDERABLES [facility] [address] [place], [place] [phone] documented in this encounter Visit Diagnoses Not on filedocumented in this encounter Care Teams Counterintelligence/Humint Specialist Relationship Specialty Start Date End Date Rita Quiroga MD [address] [place] [phone] PCP - General 04/13/17 documented as of this encounter
--- OUTSIDE RECORDS SUMMARY | 2024-06-10 13:55 | XMS_ITS | Encounter Summary ---
Author Organization [facility] Address [address] [place] [address] Care Team Providers Care Machine Maintenance Name Role Phone Rita Quiroga MD Primary Care Provider [phone] Reason for Visit * Reason Onset Date Comments Appointment Related 12/09/2017 Encounter Details Date Type Department Care Team (Late st Contact Info) Description 12/09/2017 Telephone [facility] Women's Services - [address] [address] Christy Stevens RN Appointment Related Social History Tobacco Use Types Packs/Day Years [...] as of this encounter Miscellaneous Notes * Addendum Note - Gem Ko RN - 12/10/2017 1640 ESTAddended by: GEM KO on: 12/10/2017 16:40 Modules accepted: Orders * Telephone Encounter - Gem Ko RN - 12/10/2017 1628 EST TC from Roxanne. States that she would like Nexplanon removed d/t negative side effects she has beenexperiencing. Reports hx of ectopic last spring with IUD; IUD removed and Nexplanon inserted at that time. Since then has been experiencing breast tenderness, spotting, and occasional abd cramping. Believes that breast tenderness has been worsening over that time and that cramping has been slightly increased in past week. Concerned that symptoms are similar to when she had ectopic in spring. Advised that relative lack of pain is reassuring, but we can submit order for HCG given prior history to be completed prior to appt. Advised to come to lab anytime before 1pm tomorrow in preparation for appt at [address] Baker. Roxanne voices understanding and is agreeable to this plan. No further questions or concerns at this time. * Telephone Encounter - Christy Stevens RN - 12/09/2017 1438 EST Roxanne ORTEGA: has to 12/11/17, wants Nexplanon removed and is also requesting a blood test prior to the appt., ideally in the am tomorrow. RTC to SHANNON Oliveira RTCB to get more detail re: request above. documented in this encounter Plan of Treatment Not on file documented as of this encounter Results * HCG FOR (12/11/2017 12:04 EST) Quant Beta HCG, Preg <5 <5 mIU/ml 12/11/2017 12:50 EST [facility] Comment: Reference Range: Negative = <5 Indeterminate = 5-25 recommend repeat in 48 hours. Positive = >25 Blood specimen (specimen) BLOOD SPECIMEN / Unknown 12/11/2017 12:04 EST 12/11/2017 12:12 EST Jenifer Baker MD CHEMISTRY & BLOO D GAS ORDERABLES [facility] [address] [place] [address] documented in this encounter Visit Diagnoses Diagnosis Abnormal uterine bleeding- Primary Unspecified disorder of menstruation and other abnormal bleeding from female genital tract documented in this encounter Care Teams Machine Maintenance Relationship Specialty Start Date End Date Rita Quiroga MD [address] [place] [phone] PCP - General 04/13/17 documented as of this encounter
--- OUTSIDE RECORDS SUMMARY | 2024-06-10 13:55 | XMS_ITS | Encounter Summary ---
Author Organization [facility] Address [address] [place] [address] Care Team Providers Care Lactation Consultant Name Role Phone Rita Quiroga MD Primary Care Provider [phone] Reason for Visit * Reason Comments Contraception Encounter Details Date Type Department Care Team ([facility] Contact Info) Description 12/11/2017 15:00 EST Office Visit [facility] Women's Services - [address] [phone] Jenifer Baker MD [address] [place] [address] [address] [place] [phone] General counseling and advice for contraceptive management (Primary Dx); Nexplanon removal; Encounter for IUD insertion Discharge Disposition: Auto Discharge Social History Tobacco Use Types Packs/Day Years [...] on file documented as of this encounter Last Filed Vital Signs Vital Sign Reading Time Taken Comments Blood Pressure 108/56 12/11/2017 1507 EST Pulse - - Temperature - - Respiratory Rate - - Oxygen Saturation - - Inhaled Oxygen Concentration - - Weight - - Height 157.5 cm (5' 2) 12/11/2017 1507 EST Body Mass Index - - documented in this encounter Discharge Diagnoses Diagnosis 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 1 Each 12/11/2017 12/11/2022 documented in this encounter Discharge Disposition Disposition Code Departure Means Destination Auto Discharge documented in this encounter Progress Notes * Laura Davis MD - 12/11/2017 1500 EST supervisor cigar making hand Note Chief Complaint: desires contraceptive counseling Subjective: Roxanne Beltran is a 27 y.o. who presents to the office for contraceptive counseling due to irregular bleeding with Nexplanon. She had it placed in 05/2017 and has had irregular bleeding and breast tenderness since then. She tried OCPs for 2 months but then she began bleeding again after stopping them, and she does not want to have to take a pill every day. She is interested in an IUD. Objective: BP 108/56 Ht 157.5 cm (62) Gen: no apparent distress Psych: A&O x3, mood appropriate Neuro: CN II-XII grossly intact, moves all extremities CV: pulse regular Resp: nonlabored respirations Abdomen: soft, non tender, non distended, no masses or hernias External Genitalia: normal vulvar architecture, no lesions Urethra: normal, no discharge Vagina: normal discharge, no lesions Cervix: normal discharge, no lesions Uterus/Adnexa: anteverted, mobile, non gravid, non tender uterus, no adnexal masses or tenderness Extremities: warm, well-perfused, non-tender Exam digital intern: Dr. Baker Assessment/Plan: Roxanne Beltran is a 27 y.o. who presents to the office for contraceptive counseling and options related to management of ongoing irregular bleeding 2/2 Nexplanon. Reviewedbleeding expectations with Nexplanon and options for management. Discussed may have improved bleeding pattern with LNG-IUD. Reviewed options of continued expectant management with Nexplanon, removal of Nexplanon +/- insertion of IUD. After discussion, patient opted for Nexplanon removal and Mirena IUD insertion. Please see separate procedure note. Laura Davis MD PGY-3 [facility] Obstetrics and Gynecology Pager: [phone] Attestation statement: I saw and examined the patient. I agree with the resident's/fellow's findings and plans as documented above. Reviewed that bleeding with nexplanon can be abnormal and not a sign that anything is wrong, but can be bothersome. May improve in some patients, but no guarantee. Patient counseled on options of hormonal versus non-hormonal IUDs, including effectiveness, duration of use (FDA versus evidence-based r ecommendations), patterns in bleeding/cramping and common side effects. We discussed the risks associated with insertion (infection, bleeding, uterine perforation, and expulsion) and the procedure itself. The patient had an opportunity to ask many questions, all of which were answered to the best of my abilities. After our discussion, patient would like to proceed with Nexplanon removal and IUD insertion. Jenifer Baker MD documented in this encounter Procedure Notes * Laura Davis MD - 12/11/2017 1500 EST Procedure: Procedures IUD insertion, Nexplanon Removal Risks and benefits of procedure were discussed with patient. Patient understood and consented to procedures. UPT was negative just prior to procedure. Bimanual exam revealed an anteverted, small, mobile uterus. A speculum was placed in the vagina and the cervix was brought into view. The cervix was prepped in the normal sterile fashion with betadine. A single toothed tenaculum was placed on the anterior cervical lip. The uterus was sounded to 7cm. Mirena IUD was placed according to knitting teacher's instructions. Tenaculum was removed and excellent hemostasis was noted. The IUD strings were trimmed to 4cm. The speculum was then removed. Date of insertion: 12/11/2017 IUD Lot #: [id number] Nexplanon was palpated in the LUE. The area was prepped in the normal sterile fashion with betadine. Approximately 1 mL lidocaine was used to anesthetize the area. A 3-mm incision was made with the scalpel. The Nexplanon was grasped and removed intact with gentle traction. Hemostasis was assured. Asteri strip and bandage were placed. The patient tolerated the procedures well. Dr. Baker was present throughout the procedures. Laura Davis MD PGY-3 [facility] Obstetrics and Gynecology Pager: [phone] documented in this encounter Plan of Treatment Not on file documented as of this encounter Visit Diagnoses Diagnosis General counseling and advice for contraceptive management- Primary Other general counseling and advice for contraceptive management Nexplanon removal Surveillance of previously prescribed implantable subdermal contraceptive Encounter for IUD insertion Encounter for insertion of intrauterine contraceptive device documented in this encounter Discontinued Medications Medication Sig Discontinue Reason Start Date End Da te etonogestrel (NEXPLANON) 68 mg subdermal implant Insert 1 implant subdermally once. 05/12/2017 12/11/2017 levonorgestrel-ethinyl estradiol (AVIANE, ALESSE, LESSINA) 0.1-20 mg-mcg per tablet Take 1 Tab by mouth daily. 08/08/2017 12/11/2017 documented as of this encounter Historical Medications * This list may reflect changes made after this encounter. Medication Sig Dispensed Refills Start Date End Date LORATADINE (CLARITIN ORAL) Take by mouth. added in this encounter Care Teams Lactation Consultant Relationship Specialty Start Date End Date Rita Quiroga MD [address] [place] [phone] PCP - General 04/13/17 documented as of this encounter
--- OUTSIDE RECORDS SUMMARY | 2024-06-10 13:55 | XMS_ITS | Encounter Summary ---
Author Organization [facility] Address [address] [place] [address] Care Team Providers Care Medicaid Specialist Name Role Phone Rita Quiroga MD Primary Care Provider [phone] Reason for Visit * Reason Comments Contraception Nexplanon insert Encounter Details Date Type Department Care Team ([facility] Contact Info) Description 05/12/2017 9:[address] [facility] Women's Services - [address] [address] Jenifer Baker MD [address] [place] [address] [address] [place] [address] Nexplanon insertion (Primary Dx); Routine screening for STI (sexually transmitted infection) Discharge Disposition: Auto Discharge Social History Tobacco [...] Sign Reading Time Taken Comments Blood Pressure 118/58 05/12/2017 0857 EDT Pulse - - Temperature - - Respiratory Rate - - Oxygen Saturation - - Inhaled Oxygen Concentration - - Weight 53.5 kg (118 lb) 05/12/2017 0857 EDT Height 157.5 cm (5' 2) 05/12/2017 0857 EDT Body Mass Index 21.58 05/12/2017 0857 EDT documented in this encounter Discharge Diagnoses Diagnosis Z30.017 Enctr for init prescription of implntbl subdermal contracep-Z30.017[ICD-10-CM] documented in this encounter Ordered Prescriptions Prescription Sig Dispensed Refills Start Date End Da te etonogestrel (NEXPLANON) 68 mg subdermal implant Insert 1 implant subdermally once. 1 Each 05/12/2017 12/11/2017 documented in this encounter Discharge Disposition Disposition Code Departure Means Destination Auto Discharge documented in this encounter Procedure Notes * Jenifer Baker MD - 05/12/2017 0900 EDT Procedure: Procedures Procedure Note: Nexplanon Insert Patient's last menstrual period was 02/25/2017 (approximate). Patient has not been sexually active since HCG<5 after MTX treatment. Procedure explained and written consent obtained. Site identified in left arm, prepped with betadine x3. 2 mL 1% Lidocaine injected 1 cm below groove between triceps and biceps in left arm. Nexplanon inserted using insertion needle. Device palpated by physician and patient. Dressing applied. Lot # [id number] Exp date 03/2018 Patient sent to the lab for STI testing per patient request. Attending attestation: I was present during the entire procedure. I saw and examined the patient 05/12/2017. I agree with the findings and plan of care documented in the resident's/fellow's note. Jenifer Baker MD 05/12/2017 11:11 documented in this encounter Plan of Treatment Not on file documented as of this encounter Procedures Procedure Name Priority Date/Time Associated Diagnosis Comments CHLAMYDIA/N. GONORRHOEAE AMPLIFIED RNA, URINE Routine 05/12/2017 9:26 EDT Routine screening for STI (sexually transmitted infection) POCT TEST, CLINITEK Routine 05/12/2017 9:12 EDT Nexplanon insertion documented in this encounter Results * SYPHILIS SEROLOGY (05/12/2017 9:37 EDT) Syphilis Serology Negative 05/13/2017 13:24 EDT [facility] Comment:Reference Range: Neg ative Blood specimen (specimen) BLOOD SPECIMEN / Unknown 05/12/2017 9:37 EDT 05/12/2017 9:55 EDT Jenifer Baker MD IMMUNOLOGY AND S EROLOGY ORDERABLES Performing Organization Address [facility] de Phone Number [facility] [address] [place] [address] * HIV 1/2 ANTIBODY (05/12/2017 9:37 EDT) HIV 1/2 Antibody Negative Negative 05/12/20 17 12:31 EDT [facility] Comment: New methodology in use 03/18/17. Fourth generation assay performed on the Siemens [employer]omeness[employer]. If acute HIV-1 infection is suspected in a high risk patient, submit plasma specimen for HIV-1 RNA quantification test. Blood specimen (specimen) BLOOD SPECIMEN / Unknown 05/12/2017 9:37 EDT 05/12/2017 9:55 EDT Jenifer Baker MD IMMUNOLOGY AND S EROLOGY ORDERABLES Performing Organization Address [facility] de Phone Number [facility] [address] [place] [phone] * CHLAMYDIA/N. GONORRHOEAE AMPLIFIED RNA, URINE (05/12/2017 9:26 EDT) Chlamydia Result Negative 05/13/20 17 14:32 EDT [facility] Comment: This test was developed and its performance characteristics determined by [facility]. It has not been cleared or approved by the US Food and Drug Administration. FDA does not require this test to go through premarket FDA review. This test is used for clinical purposes. It should not be regarded as investigational or for research. This laboratory is certified under the Clinical Laboratory Improvement Amendments (CLIA) as qualified to perform high complexity clinical laboratory testing. A first catch urine specimen is acceptable for detection of Gonorrhea and Chlamydia, but might detect up to 10% fewer infections when compared with vaginal and endocervical swab samples. GC Result Negative 05/13/2017 14:32 EDT [facility] Comment: This test was developed and its performance characteristics determined by [facility]. It has not been cleared or approved by the US Food and Drug Administration. FDA does not require this test to go through premarket FDA review. This test is used for clinical purposes. It should not be regarded as investigational or for research. This laboratory is certified under the Clinical Laboratory Improvement Amendments (CLIA) as qualified to perform high complexity clinical laboratory testing. A first catch urine specimen is acceptable for detection of Gonorrhea and Chlamydia, but might detect up to 10% fewer infections when compared with vaginal and endocervical swab samples. Specimen of unknown material (specimen) URINE / Unknown 05/12/2017 9:26 EDT 05/12/2017 10:17 EDT Jenifer Baker MD MICROBIOLOGY - G ENERAL ORDERABLES Performing Organization Address City/[facility]/ZIP Co de Phone Number [facility] [address] [place] [phone] * POCT TEST, CLINITEK (05/12/2017 9:12 EDT) UPT Result Neg Neg 05/12/2017 9:23 EDT [facility] automatic die cutting machine operator ID [id number] 05/12/2017 9:23 EDT [facility] Comment:Test performed at [facility] Urine specimen (specimen) URINE / Unknown 05/12/2017 9:12 EDT 05/12/2017 9:23 EDT Jenifer Baker MD POINT OF CARE TE ST ORDERABLES Performing Organization Address [facility] Co de Phone Number [facility] [address] [place] [address] documented in this encounter Visit Diagnoses Diagnosis Nexplanon insertion- Primary Insertion of implantable subdermal contraceptive Routine screening for STI (sexually transmitted infection) Screening examination for venereal disease documented in this encounter Administered Medications Inactive Administered Medications - up to 3 most recent administrations Medication Order MAR Action Action Date Dose Rate Site etonogestrel (NEXPLANON) subdermal implant 68 mg 68 mg, subdermal, CONTINUOUS, Starting on Fri05/12/17 at 1015, Until Fri05/12/17 at 1312 New Bag 05/12/2017 9:58 EDT 68 mg documented in this encounter Care Teams Medicaid Specialist Relationship Specialty Start Date End Date Rita Quiroga MD [address] [place] [phone] PCP - General 04/13/17 documented as of this encounter
--- OUTSIDE RECORDS SUMMARY | 2024-06-10 13:55 | XMS_ITS | Encounter Summary ---
Author Organization [facility] Address [address] [place] [address] Care Team Providers Care Bed Teacher Name Role Phone Rita Quiroga MD Primary Care Provider [phone] Encounter Details Date Type Department Care Team (Late st Contact Info) Description 04/23/2017 11:08 EDT - 04/23/2017 23:59 EDT Hospital Encounter [facility] - [address] [address] Jenifer Baker MD [address] [facility] [address] [place] [address] Discharge Disposition: Auto Discharge Social History Tobacco [...] Disposition Code Departure Means Destination Auto Discharge Home documented in this encounter Plan of Treatment Not on file documented as of this encounter Visit Diagnoses Not on filedocumented in this encounter Care Teams Bed Teacher Relationship Specialty Start Date End Date Rita Quiroga MD [address] [place] [phone] PCP - General 04/13/17 documented as of this encounter
--- OUTSIDE RECORDS SUMMARY | 2024-06-10 13:55 | XMS_ITS | Encounter Summary ---
Author Organization [facility] Address [address] [place] [address] Care Team Providers Care Student Affairs Vice President Name Role Phone Rita Quiroga MD Primary Care Provider [phone] Encounter Details Date Type Department Care Team (Late st Contact Info) Description 03/15/2022 Lab Requisition [facility] Pathology & Laboratory Medicine - [address] [address] Outr Resulting Lab, Provider Social History Tobacco [...] Procedure Name Priority Date/Time Associated Diagnosis Comments ZZCOVID-19 TEST [facility] LAB PCR Today 03/14/2022 13:20 EDT COVID-19 TESTING Routine 03/14/2022 13:2 0 EDT documented in this encounter Results * COVID-19 TEST [facility] LAB PCR (03/14/2022 13:20 EDT) Swab 03/14/2022 13:2 0 EDT 03/15/2022 16:23 EDT Provider Outr Resulting Lab MICROBIOLOGY - GENERAL ORDERABLES [facility] [address] [place] [address] * COVID-19 TESTING (03/14/2022 13:20 EDT) COVID-19 rt-PCR Result Negative Negative 03/16/2022 10:37 EDT [facility] Comment: This test has not been FDA cleared or approved. This test has been authorized by FDA under an EUA for use by authorized laboratories. This test has been authorized only for detection of nucleic acid from 2019-nCoV, not for any other viruses or pathogens. This test is only authorized for the duration of the declaration that circumstances exist justifying the authorization of emergency use of in vitro diagnostic tests for detection and/or diagnosis of 2019-nCoV under section 564(b)(1) of Act, 21 U.S.C ?? 360bbb-3(b) (1), unless the authorization is terminated or revoked sooner. Negative results do not preclude 2019-nCoV infection and should not be used as the sole basis for treatment or other patient management decisions. Negative results must be combined with clinical observations, patient history, and epidemiological information. Testing was performed using the james SARS-CoV-2 assay ([employer] on the James 6800 System Performing Lab James [address] [facility] [place] [facility] 03/16/2022 10:37 EDT [facility] Swab 03/14/2022 13:2 0 EDT 03/15/2022 16:23 EDT Provider Outr Resulting Lab MICROBIOLOGY - GENERAL ORDERABLES [facility] [address] [place] [address] documented in this encounter Visit Diagnoses Not on filedocumented in this encounter Care Teams Student Affairs Vice President Relationship Specialty Start Date End Date Rita Quiroga MD [address] [place] [phone] PCP - General 04/13/17 documented as of this encounter
--- OUTSIDE RECORDS SUMMARY | 2024-06-10 13:55 | XMS_ITS | Encounter Summary ---
Author Organization [facility] Address [address] [place] [address] Care Team Providers Care Employment Law Attorney Name Role Phone Rita Quiroga MD Primary Care Provider [phone] Reason for Visit * Reason Comments Advice Only control talk Encounter Details Date Type Department Care Team ([facility] Contact Info) Description 05/05/2017 14:00 EDT Office Visit [facility] Women's Services - [address] [address] Jenifer Baker MD [address] [place] [address] [address] [place] [address] Tubal without intrauterine (Primary Dx); General counseling and advice for contraceptive management Social History Tobacco Use Types Packs/Day Years [...] Sign Reading Time Taken Comments Blood Pressure 100/60 05/05/2017 1349 EDT Pulse - - Temperature - - Respiratory Rate - - Oxygen Saturation - - Inhaled Oxygen Concentration - - Weight 53.5 kg (118 lb) 05/05/2017 1349 EDT Height 157.5 cm (5' 2) 05/05/2017 1349 EDT Body Mass Index 21.58 05/05/2017 1349 EDT documented in this encounter Progress Notes * Jenifer Baker MD - 05/05/2017 1400 EDT CC: Advice Only ( control talk) HPI: Roxanne Beltran is a 27 y.o. who presents to discuss contraceptive options. She recently completed methotrexate therapy for an ectopic and had a Paragard IUD removed at the time of diagnosis that had been in place for approximately 8 years. The IUD removal was complicated by fracture of the device and retention of 1 arm of the IUD with an outside provider, she subsequently underwent U/S guided removal of the remaining arm in our office that was accomplished without significant difficulty. She had some mild lower abdominal discomfort during treatment with the methotrexate but states that has since resolved and she is feeling more or less back to her normal self. She has been abstinent since diagnosis and removal of IUD and is considering her options for contraception. 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, which is where 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 From a contraceptive history standpoint, she has used the Paragard IUD as above as well as OCP's and the nuvaring in the past. She had nausea and breakthrough bleeding with the pill and when she switched to the nuvaring she had breast tenderness; both decreased her libido. She is interested in discussing her options further today. ROS: Pertinent items are noted in HPI. Past Medical History Past Surgical History Past Medical History: Diagnosis Date ??? Anxiety disorder ??? Blepharitis of both eyes ??? Chorioretinal scar right eye ??? GERD (gastroesophageal reflux disease) ??? IBS (irritable bowel syndrome) ??? Myopia ??? Ocular migraine ??? Vitreous syneresis History reviewed. No pertinent surgical history. Obstetric History Gynecologic History OB History Para Term AB SAB TAB Ectopic Multiple Living 1 1 1 # Outcome Date GA Lbr Eric/2nd Weight Sex Delivery Anes PTL Lv 1 Ectopic ECTOPIC Comments: IUD in place, treated with Methotrexate Menses: Reg prior to , q28-30 days, 4-5 days of bleeding, moderate flow Cervical cancer screening: Believes UTD through PP STI's: Denies Sexual activity: Yes, monogamous male partner Contraception: Previous Paragard IUD, now abstinence pending decision about new method Social History Family History Social History Substance Use Topics ??? Smoking status: Never Smoker ??? Smokeless tobacco: Never Used ??? Alcohol use Yes Comment: 5 to 5 per week Problem Relation Name Comments Glaucoma Maternal Grandmother Denies any history of known cancers or genetic conditions that run in her family. Medications Allergies Current Outpatient Prescriptions Medication Sig Dispense Refill ??? escitalopram oxalate (LEXAPRO) 10 mg tablet Take 10 mg by mouth daily. ??? fexofenadine (GRIS) 60 mg tablet Take 60 mg by mouth 2 times daily. ??? ranitidine (ZANTAC) 150 mg tablet Take 150 mg by mouth 2 times daily. No current facility-administered medications for this visit. No Known Allergies Objective: BP 100/60 (BP Cuff Location: Left arm, Patient Position: Sitting, BP Cuff Sizes: Adult, regular) Ht 157.5 cm (62) Wt 53.5 kg (118 lb) ? No BMI 21.58 kg/m2 GEN: No acute distress Psych: Appropriate affect, alert and oriented to person, place and time Skin: Normal temperature and texture, no rashes or lesions HEENT: Normocephalic, atraumatic, sclera anicteric, oropharynx clear with moist mucous membranes PULM: Normal respiratory effort EXT: Warm, well perfused, no edema Assessment/Plan: Roxanne Beltran is a 27 y.o. who presents in follow=up after recent treatment of ectopic and to discuss contraceptive options. 1. Tubal without intrauterine Reviewed treatment plan and course. Discussed that she is no longer and the has resolved, no longer at risk for rupture or other concerns. Discussed that she is at an increased risk for ectopic in future pregnancies regardless of IUD status. Understands that despite medical treatment, may still have residual effects on the tube and thus can still have tubal damage from the process itself. 2. General counseling and advice for contraceptive management Had a long discussion today about contraceptive options in light of her prior contraceptive experiences with the Paragard IUD, OCP and Nuvaring. We reviewed her options including sterilization, IUDs,implant, injection, pill/patch/ring, withdrawal, and barrier methods. We reviewed the pros/cons, effectiveness and potential side effects of each. She had a number of questions about the contraceptive implant and the hormonal IUDs which I answered to the best of my abilities. Given her prior experience with the IUD, she is hesitant to use it again and is leaning strongly towards the Nexplanon. She was provided with handouts and references related to Nexplanon and all other methods and was encouraged to discuss with her partner and review her options. She will call our office to schedule a visit in the coming weeks if she decides to proceed with Nexplanon placement. All questions answered, understands she can get at this time and to abstain until she decides on a contraceptive method. I spent a total of 30 minutes in face to face time with this patient today and >50% of that timewas spent in counseling and coordination of care as described in the progress note. Jenifer Baker MD documented in this encounter Plan of Treatment Not on file documented as of this encounter Visit Diagnoses Diagnosis Tubal without intrauterine - Primary General counseling and advice for contraceptive management Other general counseling and advice for contraceptive management documented in this encounter Care Teams Employment Law Attorney Relationship Specialty Start Date End Date Rita Quiroga MD [address] [place] [phone] PCP - General 04/13/17 documented as of this encounter
--- OUTSIDE RECORDS SUMMARY | 2024-06-10 13:55 | XMS_ITS | Encounter Summary ---
Author Organization [facility] Address [address] [place] [address] Care Team Providers Care Hot Tamale Worker Name Role Phone Rita Quiroga MD Primary Care Provider [phone] Encounter Details Date Type Department Care Team (Late Contact Info) Description 04/30/2017 Phlebotomy Only [address] [address] Vascular Radiologist, Outpatient Tubal without intrauterine (Primary Dx) Social History [...] Procedure Name Priority Date/Time Associated Diagnosis Comments QUANT BETA HCG, Routine 04/30/2017 12:41 EDT Tubal without intrauterine documented in this encounter Results * HCG FOR (04/30/2017 12:41 EDT) Quant Beta HCG, Preg <5 <5 mIU/ml 04/30/2017 14:14 EDT [facility] Comment: Reference Range: Negative = <5 Indeterminate = 5-25 recommend repeat in 48 hours. Positive = >25 Blood specimen (specimen) BLOOD SPECIMEN / Unknown 04/30/2017 12:41 EDT 04/30/2017 12:55 EDT Jenifer Baker MD CHEMISTRY & BLOO D GAS ORDERABLES [facility] [address] [place] [address] documented in this encounter Visit Diagnoses Diagnosis Tubal without intrauterine - Primary documented in this encounter Care Teams Hot Tamale Worker Relationship Specialty Start Date End Date Rita Quiroga MD [address] [place] [phone] PCP - General 04/13/17 documented as of this encounter
--- OUTSIDE RECORDS SUMMARY | 2024-06-10 13:55 | XMS_ITS | Encounter Summary ---
Author Organization [facility] Address [address] [place] [address] Care Team Providers Care Body Shop Manager Name Role Phone Rita Quiroga MD Primary Care Provider [phone] Reason for Visit * Reason Onset Date Comments Ectopic 04/21/2017 Encounter Details Date Type Department Care Team ([facility] Contact Info) Description 04/21/2017 Telephone [facility] Women's Services - [address] [address] Leni Delgado RN Ectopic Social History Tobacco [...] encounter Miscellaneous Notes * Telephone Encounter - Jenifer Baker MD - 04/21/2017 1410 EDT Just day 7 HCG is fine, no additional labs needed. L * Telephone Encounter - Leni Delgado RN - 04/21/2017 1349 EDT Component Latest Ref Rng & Units 04/20/2017 HCG <5 mIU/ml 63 (H) Discussed results with Roxanne; she will present for day 7 labs (04/23). Reports for a few days following her MTX injection, she was nauseated and tired, this has since resolved. Reports light period vaginal bleeding, no RLQ pain. Having LLQ pain where ovarian cyst had been found. Aware to call triage/on-call any time. Otherwise we will call with results once available. documented in this encounter Plan of Treatment Not on file documented as of this encounter Results * (ABNORMAL) HCG FOR (04/23/2017 11:22 EDT) Quant Beta HCG, Preg 33(H) <5 mIU/ml 04/23/2017 15:36 EDT [facility] Comment: Reference Range: Negative = <5 Indeterminate = 5-25 recommend repeat in 48 hours. Positive = >25 Blood specimen (specimen) BLOOD SPECIMEN / Unknown 04/23/2017 11:22 EDT 04/23/2017 12:58 EDT Jenifer Bkaer MD CHEMISTRY & BLOO D GAS ORDERABLES [facility] [address] [place] [address] documented in this encounter Visit Diagnoses Diagnosis Tubal without intrauterine - Primary documented in this encounter Care Teams Body Shop Manager Relationship Specialty Start Date End Date Rita Quiroga MD [address] [place] [phone] PCP - General 04/13/17 documented as of this encounter
--- OUTSIDE RECORDS SUMMARY | 2024-06-10 13:55 | XMS_ITS | Encounter Summary ---
Author Organization [facility] Address [address] [place] [address] Care Team Providers Care Cio Name Role Phone Rita Quiroga MD Primary Care Provider [phone] Encounter Details Date Type Department Care Team (Late Contact Info) Description 04/20/2017 Phlebotomy Only [address] [address] Acid Tester, Outpatient Tubal without intrauterine (Primary Dx) Social [...] Associated Diagnosis Comments QUANT BETA HCG, Routine 04/20/2017 10:43 EDT Tubal without intrauterine documented in this encounter Results * (ABNORMAL) HCG FOR (04/20/2017 10:43 EDT) Quant Beta HCG, Preg 63(H) <5 mIU/ml 04/20/2017 13:22 EDT [facility] Comment: Reference Range: Negative = <5 Indeterminate = 5-25 recommend repeat in 48 hours. Positive = >25 Blood specimen (specimen) BLOOD SPECIMEN / Unknown 04/20/2017 10:43 EDT 04/20/2017 12:32 EDT Jenifer Baker MD CHEMISTRY & BLOO D GAS ORDERABLES [facility] [address] [place] [address] documented in this encounter Visit Diagnoses Diagnosis Tubal without intrauterine - Primary documented in this encounter Care Teams Cio Relationship Specialty Start Date End Date Rita Quiroga MD [address] [place] [phone] PCP - General 04/13/17 documented as of this encounter
--- OUTSIDE RECORDS SUMMARY | 2024-06-10 13:55 | XMS_ITS | Encounter Summary ---
Author Organization [facility] Address [address] [place] [address] Care Team Providers Care Elementary Vocal Music Teacher Name Role Phone Rita Quiroga MD Primary Care Provider [phone] Reason for Visit * Reason Onset Date Comments Other 11/19/2017 Encounter Details Date Type Department Care Team (Late Contact Info) Description 11/19/2017 Telephone [facility] Women's Services - [address] [address] Lucía Busch RN Other Social History Tobacco Use Types Packs/Day Years [...] Telephone Encounter - Lucía Busch RN - 11/19/2017 1151 EST Call from pt. She had questions regarding Nexplanon. I called pt back. for her to call office back. documented in this encounter Plan of Treatment Not on file documented as of this encounter Visit Diagnoses Not on filedocumented in this encounter Care Teams Elementary Vocal Music Teacher Relationship Specialty Start Date End Date Rita Quiroga MD [address] [place] [phone] PCP - General 04/13/17 documented as of this encounter
--- OUTSIDE RECORDS SUMMARY | 2024-06-10 13:55 | XMS_ITS | Referral Summary ---
Author Organization [facility] Address [address] [place] [address] Care Team Providers Care Floral Artist Name Role Phone Rita Quiroga MD Primary Care Provider [phone] Allergies No known active allergies Medications Medication [...] reflux disease 05/24/2009 Overview: Since high school. Social History Tobacco Use Types Packs/Day Years [...] on file Sexual Orientation Not on file Last Filed Vital Signs Vital Sign Reading [...] 21.58 05/12/2017 0857 EDT Plan of Treatment Not on file Medical Devices Implanted Type Area Side Piece Coverer Device Identifier Shelf Expiration Date Model / [...] C Antibody Negative Negative 03/11/2024 19:02 EDT [facility] Blood VENOUS BLOOD / Unknown 03/10/2024 16:00 EDT 03/11/2024 17:31 EDT Provider Outr Resulting Lab CHEMISTRY & BLOOD GAS ORDERABLES [facility] [address] [place], [place] [id number] from Last 3 Months or Most Recently Relevant to Health Maintenance Care Teams Floral Artist Relationship Specialty Start Date End Date Rita Quiroga MD [address] [place] [phone] [facility] - General 04/13/17
--- OUTSIDE RECORDS SUMMARY | 2024-06-10 13:55 | XMS_ITS | Clinical Summary ---
Author Organization [facility] Address [facility] [place] [address] Care Team Providers Care Industrial Maintenance Tech Name Role Phone Rita Quiroga MD Primary Care Provider [phone] Allergies No known active allergies Medications Medication Sig Dispensed Refills Start Date End Date Status escitalopram (Lexapro) 10 mg Tablet Take 10 mg by mouth daily. Active montelukast (Singulair) 10 mg Tablet Take 10 mg by mouth nightly. Active loratadine (Claritin) 10 mg Tablet Take 10 mg by mouth daily. Active hydroquinone 4 % Cream Apply nightly to affected areas of the face combine in a pea sized amount with Tretinoin 0.05% 45 g 3 06/14/2020 Active tretinoin (RETIN-A) 0.05 % Cream apply nightly to affected areas of the face combine in a pea sized amount with Hydroquinone 4% 45 g 3 06/14/2020 Active Social History Tobacco Use Types Packs/Day Years Used Date Smoking Tobacco: Never Smokeless Tobacco: Never Sex and Gender Information Value Date Recorded Sex Assigned at Not on file Gender Identity Not on file Sexual Orientation Not on file Plan of Treatment Health Maintenance Due Date Last Done Comments HIV screen 2007 Hepatitis C Screening 2007 Hepatitis B vaccine (0-59 yrs) (1) 2008 Tdap adult 2008 Tetanus vaccine 2008 HPV test 2019 PAP Smear 2019 Covid-19 Vaccine ( - 2022- season) 2023 Influenza (Flu) vaccine (1 o f 1 - Influenza standard series) 08/01/2024 Care Teams Industrial Maintenance Tech Relationship Specialty Start Date End Date Rita Quiroga MD [facility] SRINI SUAREZ [facility] [address] [place] [address] PCP - General Family Medicine 06/13/20
--- OUTSIDE RECORDS SUMMARY | 2024-06-10 13:55 | XMS_ITS | Encounter Summary ---
Author Organization [facility] Address [address] [place] [address] Care Team Providers Care Podiatric Assistant Name Role Phone Rita Quiroga MD Primary Care Provider [phone] Encounter Details Date Type Department Care Team (Late st Contact Info) Description 03/11/2024 Lab Requisition [facility] Pathology & Laboratory Medicine - [address] [address] Outr Resulting Lab, Provider Social History Tobacco [...] Procedure Name Priority Date/Time Associated Diagnosis Comments HIV 1/2 ANTIGEN AND ANTIBODY, 4TH GENERATION Routine 03/10/2024 16:00 EDT documented in this encounter Results * HIV 1/2 ANTIGEN AND ANTIBODY, 4TH GENERATION (03/10/2024 16:00 EDT) HIV 1 and 2 Antibody/p24 Antigen, 4th Generation Negative Negative 03/11/2024 19:04 EDT [facility] Comment:If acute HIV-1 infec tion is suspected in a high risk patient, submit plasma specimen for HIV-1 RNA quantitation test. Blood VENOUS BLOOD / Unknown 03/10/2024 16:00 EDT 03/11/2024 17:31 EDT Narrative [facility] - 03/11/2024 19:04 EDT Fourth Generation assay performed on the Siemens Remicalmaur XPT. Provider Outr Resulting Lab IMMUNOLOGY A ND SEROLOGY ORDERABLES [facility] [address] [place] [address] documented in this encounter Visit Diagnoses Not on filedocumented in this encounter Care Teams Podiatric Assistant Relationship Specialty Start Date End Date Rita Quiroga MD [address] [place] [phone] PCP - General 04/13/17 documented as of this encounter
--- OUTSIDE RECORDS SUMMARY | 2024-06-10 13:55 | XMS_ITS | Encounter Summary ---
Author Organization [facility] Address [address] [place] [address] Care Team Providers Care Cardiac Surgeon Name Role Phone Rita Quiroga MD Primary Care Provider [phone] Reason for Visit * Reason Onset Date Comments Appointment Related 04/17/2017 Encounter Details Date Type Department Care Team (Late st Contact Info) Description 04/17/2017 Telephone [facility] Dermatology 5th [address] [address] Ana Hale, PA-C [address] [place] [address], [address] [place] [address] Appointment Related Social History Tobacco Use Types [...] encounter Miscellaneous Notes * Telephone Encounter - Jayne Mcdaniel RN - 04/17/2017 1224 EDT Patient originally referred on 07/08/[address] Rita Quiroga, [facility] for lesion, face - spot on nose nonhealing for over a year would like full skin check. Per her request is referred to dermatology. 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 Please call back to set up a different time. documented in this encounter Plan of Treatment Not on file documented as of this encounter Visit Diagnoses Not on filedocumented in this encounter Care Teams Cardiac Surgeon Relationship Specialty Start Date End Date Rita Quiroga MD [address] [place] [phone] PCP - General 04/13/17 documented as of this encounter
--- OUTSIDE RECORDS SUMMARY | 2024-06-10 13:55 | XMS_ITS | Encounter Summary ---
Author Organization [facility] Address [address] [place] [address] Care Team Providers Care Diamond Sawer Name Role Phone Rita Quiroga MD Primary Care Provider [phone] Reason for Visit * Reason Onset Date Comments Ectopic 04/25/2017 Encounter Details Date Type Department Care Team ([facility] Contact Info) Description 04/25/[address] [facility] Women's Services - [address] [address] Dania Ashley RN Ectopic Social History Tobacco Use Types [...] encounter Miscellaneous Notes * Telephone Encounter - Dania Ashley - 04/25/2017 1031 EDT Call from Roxanne, who reports increase in vaginal bleeding last night with moderate menstrual cramping. Having to use a pad, whereas previously was having just very light spotting. Received methotrexate on 04/16 for suspected ectopic . Denies fever, chills, lightheaded/dizziness, nausea, vomiting, dysuria. Discussed with Dr. Zuleta. Pt reassured that due to low HCG these symptoms are not worrisome at this time. Advised to continue pelvic rest. Reviewed symptoms concerning for rupture with phone number of triage and on-call if symptoms worsen. F/U with [facility] on 04/30 as planned. Pt voiced understanding and agreed with plan of care. documented in this encounter Plan of Treatment Not on file documented as of this encounter Visit Diagnoses Not on filedocumented in this encounter Care Teams Diamond Sawer Relationship Specialty Start Date End Date Rita Quiroga MD [address] [place] [phone] PCP - General 04/13/17 documented as of this encounter
--- OUTSIDE RECORDS SUMMARY | 2024-06-10 13:55 | XMS_ITS | Encounter Summary ---
Author Organization [facility] Address [address] [place] [address] Care Team Providers Care Research Dietitian Name Role Phone Rita Quiroga MD Primary Care Provider [phone] Reason for Visit * Reason Onset Date Comments Results 05/14/2017 Encounter Details Date Type Department Care Team (Late Contact Info) Description 05/14/2017 Telephone [facility] Women's Services - [address] [address] Fide Saenz, SANDRO Results Social History Tobacco Use Types Packs/Day Years [...] encounter Miscellaneous Notes * Telephone Encounter - Fide Saenz RN - 05/14/2017 0910 EDT atr pt: LM on personal VM that all blood work done 05/12/17 was negative. Given ACCESS LEAD Triage # for further questions. * Telephone Encounter - Fide Saenz RN - 05/14/[address] [place]: Please let Roxanne know that her STI testing was all negative. documented in this encounter Plan of Treatment Not on file documented as of this encounter Visit Diagnoses Not on filedocumented in this encounter Care Teams Research Dietitian Relationship Specialty Start Date End Date Rita Quiroga MD [address] [place] [phone] PCP - General 04/13/17 documented as of this encounter
--- OUTSIDE RECORDS SUMMARY | 2024-06-10 13:55 | XMS_ITS | Encounter Summary ---
Author Organization [facility] Address [address] [place] [address] Care Team Providers Care Toy Assembler Name Role Phone Rita Quiroga MD Primary Care Provider [phone] Encounter Details Date Type Department Care Team (Late st Contact Info) Description 02/25/2023 Lab Requisition [facility] Pathology & Laboratory Medicine - [address] [address] Boo Viera MD [address] [place] [phone] Encounter for other general examination Social History Tobacco Use Types Packs/Day Years [...] Date/Time Associated Diagnosis Comments SURGICAL PATHOLOGY Today 02/25/2023 10 :36 EDT documented in this encounter Results * SURGICAL PATHOLOGY (02/25/2023 10:36 EDT) Note to Patient The following pathology results have been interpreted by your pathologist and may be available to you before your health provider has had the opportunity to review them. Please allow time for your provider to receive these results and explore management options, if applicable. 03/04/2023 16:02 [facility] Final Diagnosis A. SOFT TISSUE OF WRIST, LEFT DORSAL, MASS, EXCISION: - Ganglion cyst. 03/04/2023 16:02 [facility] Attestation There was significant resident/fellow involvement in the diagnostic evaluation of this case. By the signature below, the attending physician certifies that they have personally conducted a gross and/or microscopic examination of the described specimens and rendered or confirmed the above diagnosis. 03/04/2023 16:02 [facility] at 1602 Clinical History Left wrist pain 03/04/2023 16:02 [facility] Gross Description A. Received in formalin labelled with proper patient identification (initials W, A) and dorsal wrist mass (left) is a ragged soft to slightly rubbery tissue fragment, 1.6 x 0.8 x 0.4 cm. The tissue varies from south-white to purple to yellow and contains a collapsed cystic structure partially filled with clear jameson fluid. The specimen is entirely submitted intact in A1. HAJA BARNETT([facility]) 02/26/2023 10:57 03/04/2023 16:02 [facility] Resident/Ant w: Kierra Webb DO 03/04/2023 16:02 EDT [facility] Performing Lab [facility] 03/04/2023 16:02 T [facility] Scanned Images 03/04/2023 16:02 [facility] Tissue SOFT TISSUE / Unknown 02/25/2023 10:36 EDT 02/26/2023 9:05 EDT Boo Viera MD PATHOLOGY ORDERABLES [facility] [address] [place] [phone] documented in this encounter Visit Diagnoses Diagnosis Encounter for other general examination documented in this encounter Care Teams Toy Assembler Relationship Specialty Start Date End Date Rita Quiroga MD [address] [place] [phone] PCP - General 04/13/17 documented as of this encounter
--- OUTSIDE RECORDS SUMMARY | 2024-06-10 13:55 | XMS_ITS | Encounter Summary ---
Author Organization [facility] Address [address] [place] [address] Care Team Providers Care Biofuels Operations Manager Name Role Phone Rita Quiroga MD Primary Care Provider [phone] Reason for Visit * Reason Onset Date Comments Appointment Related 05/08/2017 Encounter Details Date Type Department Care Team ([facility] Contact Info) Description 05/08/2017 Telephone [facility] Women's Services - [address] [address] Leni Delgado RN Appointment Related Social History Tobacco Use [...] Telephone Encounter - Leni Delgado RN - 05/08/2017 1018 EDT Roxanne has been scheduled for her nexplanon insertion; 05/12 @ 0900. * Telephone Encounter - Leni Delgado RN - 05/08/2017 0900 EDT Roxanne is calling to schedule her nexplanon insertion, requesting Saturday 05/12. Discussed with Dr. [place]; she can come at 9 am or 3:15 pm. Message left with Roxanne to call INTERNATIONAL ORGANIZER back with her selection. documented in this encounter Plan of Treatment Not on file documented as of this encounter Visit Diagnoses Not on filedocumented in this encounter Care Teams Biofuels Operations Manager Relationship Specialty Start Date End Date Rita Quiroga MD [address] [place] [phone] PCP - General 04/13/17 documented as of this encounter
--- OUTSIDE RECORDS SUMMARY | 2024-06-10 13:55 | XMS_ITS | Encounter Summary ---
Author Organization [facility] Address [address] [place] [address] Care Team Providers Care Curing Bin Operator Name Role Phone Rita Quiroga MD Primary Care Provider [phone] Encounter Details Date Type Department Care Team (Late Contact Info) Description 04/23/2017 Phlebotomy Only [address] [address] Eye Glass Frame Polisher, Outpatient Tubal without intrauterine (Primary Dx) Social [...] Associated Diagnosis Comments QUANT BETA HCG, Routine 04/23/2017 11:22 EDT Tubal without intrauterine documented in this encounter Results * (ABNORMAL) HCG FOR (04/23/2017 11:22 EDT) Quant Beta HCG, Preg 33(H) <5 mIU/ml 04/23/2017 15:36 EDT [facility] Comment: Reference Range: Negative = <5 Indeterminate = 5-25 recommend repeat in 48 hours. Positive = >25 Blood specimen (specimen) BLOOD SPECIMEN / Unknown 04/23/2017 11:22 EDT 04/23/2017 12:58 EDT Jenifer [place] MD CHEMISTRY & BLOO D GAS ORDERABLES [facility] [address] [place] [address] documented in this encounter Visit Diagnoses Diagnosis Tubal without intrauterine - Primary documented in this encounter Care Teams Curing Bin Operator Relationship Specialty Start Date End Date Rita Quiroga MD [address] [place] [phone] PCP - General 04/13/17 documented as of this encounter
--- OUTSIDE RECORDS SUMMARY | 2024-06-10 13:55 | XMS_ITS | Encounter Summary ---
Author Organization [facility] Address [address] [place] [address] Care Team Providers Care Automatic Data Processing Planner Name Role Phone Rita Quiroga MD Primary Care Provider [phone] Reason for Visit * Reason Onset Date Comments Appointment Related 04/30/2017 Encounter Details Date Type Department Care Team (Late st Contact Info) Description 04/30/2017 Telephone [facility] Dermatology 3rd Floor [facility] [address] [place] [address] Desirae Desai MD [address] [place] [phone] Appointment Related Social History Tobacco Use Types [...] encounter Miscellaneous Notes * Telephone Encounter - Claudine Bolton - 04/30/2017 1157 EDT Spoke to patient and scheduled her for laser appointment with Dr. Desai 06/11 at 4PM. Claudine Bolton 04/30/2017 11:57 * Telephone Encounter - Kenisha Urrutia - 04/30/2017 1128 EDT Patient is scheduled for a LAS appt in 01/2018. She chose to push it out because she wasn't sure shewanted to follow through with it right away or not. She is calling today because she would really like to be seen this summer. documented in this encounter Plan of Treatment Not on file documented as of this encounter Visit Diagnoses Not on filedocumented in this encounter Care Teams Automatic Data Processing Planner Relationship Specialty Start Date End Date Rita Quiroga MD [address] [place] [phone] PCP - General 04/13/17 documented as of this encounter
--- OUTSIDE RECORDS SUMMARY | 2024-06-10 13:55 | XMS_ITS | Data Portability ---
Author Organization [facility] Address [address] [place] [address] Assessment No assessment recorded. Plan of Treatment Reminders Order Date Submit Date Provider Last Modified By Organization Details Last Modified Time Details Appointments Nurse Visit 2023 10:30A M [facility] Nursing Staff Not available Not available Not available Annual Wellness Exam 2024 02:20P M Rita Quiroga Not available Not available Not available Lab TSH, serum, reflex free T4 2023 024 [facility] (Registration ), [address] [place] [address] [place], [address], 03/11/2024 13:20:04 CBC w/ auto diff 2023 024 [facility] (Registration ), [address] [place] [address] [place], [address], 03/10/2024 20:24:03 HIV (1+2) Ab screen, serum 2023 024 [facility] (Registration ), [address] [place] [address] [place], [address], 03/12/2024 09:14:21 hepatiti s C virus Ab, serum 2023 024 [facility] (Registration ), [address] [place] [address] [place], [address], 03/12/2024 09:14:01 TSH, serum, reflex free T4 2023 024 [facility] (Registration ), [address] [place] [address] [place], [address], 06/10/2024 10:50:34 thyroglo bulin Ab, serum 2023 024 [facility] (Registration ), [address] [place] [address] [place], [address], 06/10/2024 10:50:33 thyroper oxidase Ab, serum 2023 024 [facility] (Registration ), [address] [place] [address] [place], [address], 06/10/2024 10:50:34 Referral None recorded . Procedures None recorded . Surgeries None recorded . Imaging None recorded . Medication Orders albutero l sulfate HFA 90 mcg/actu ation aerosol inhaler 2022 023 [email or web address] [facility], [address] [place] [address], [id number], 03/10/2024 15:07:17 predniso ne 20 mg tablet 2022 023 [email or web address] [facility], [address] [place] [address], [id number], 02/19/2024 09:20:57 benzonat ate 100 mg capsule 2022 023 [email or web address] [facility], [address] [place], [address], 02/19/2024 09:29:24 metoprol ol tartrate 25 mg tablet 2023 024 [facility], [address], [address], [address], 03/10/2024 16:53:15 monteluk ast 10 mg tablet 2023 024 [facility], [address], [address], [place], [address], 03/10/2024 16:53:17 escitalo pram 10 mg tablet 2023 024 [facility], [address], [facility] [address], [place], [address], 03/10/2024 16:53:13 alprazol am 0.25 mg tablet 2023 024 [facility], [address], [address], [place], [address], 03/10/2024 16:53:18 Patient TargetsNo targets recorded. Patient Instructions Encounter Date Encounter Id Patient Instructions Last Modified By Organization Details Last Modified Time 11/14/2023 [id number] Start ALBUTEROL 2 puffs every 4-6 hours for cough. Can use BENZONOTATE caps as needed up to 3 times a day. If not better in a few days,start the prednisone 20 mg tablets, 2 for 5 days, then 1 for 5 days. Can try the metoprolol either daily or as needed. [email or web address] Not available 11/14/2023 15:57:59 02/19/2024 [id number] General measures we can take to minimize exposure to infectious illness are consistent with prior Covid precautions including: Regular handwashing, wearing a mask and having others wear a mask if working in close proximity, getting quality, regular sleep, and reducing stress by engaging in aerobic exercise 5-6 days per week which activates your parasympathetic nervous system, reduces stress, and improves blood and lymphatic flow throughout the body making any infection more likely to be resolved faster with less symptoms. If you find yourself reaching for your inhaler more often with regard to asthma during illness, you should be seen in the office to avert prolonged asthma exacerbations caused by respiratory illness. [email or web address] Not available 02/19/2024 09:27:11 Reason for Referral Electrotherapist Referral for Irritable bowel syndrome loose stool daily, often crampy, IBS episodes are more frequent, Referring Physician: Rita Quiroga, Family Medicine, Encounter Date: 03/26/2024 Results Created Date Observation Date Name Description Value Unit Range Abnormal Flag LastModifiedBy Organization Detail LastModifiedTime 03/10/20 24 03/10/2024 COMPL ETE BLOOD COUNT W/DIF F WBC 7.23 10_3/ uL 4.4-10 .8 normal Not Available [address] [place], [address] 03/10/2024 20:24:03 03/10/20 24 03/10/2024 COMPL ETE BLOOD COUNT W/DIF F RBC 4.33 10_6/ uL 3.93-5 .22 normal Not Available [address] [place], [address] 03/10/2024 20:24:03 03/10/20 24 03/10/2024 COMPL ETE BLOOD COUNT W/DIF F HGB 12.7 g/dL 11.2-1 5.7 normal Not Available [address] [place], [address] 03/10/2024 20:24:03 03/10/20 24 03/10/2024 COMPL ETE BLOOD COUNT W/DIF F HCT 38.9 % 36.0-4 6.0 normal Not Available [address] [place], [address] 03/10/2024 20:24:03 03/10/20 24 03/10/2024 COMPL ETE BLOOD COUNT W/DIF F MCV 90 fL 80-95 normal Not Available [address] [place], [address] 03/10/2024 20:24:03 03/10/20 24 03/10/2024 COMPL ETE BLOOD COUNT W/DIF F MCH 29.3 pg 27.0-3 3.0 normal Not Available [address] [place], [address] 03/10/2024 20:24:03 03/10/20 24 03/10/2024 COMPL ETE BLOOD COUNT W/DIF F MCHC 32.6 % 32.0-3 6.0 normal Not Available [address] [place], [address] 03/10/2024 20:24:03 04/10/03/10/2024 COMPL ETE BLOOD COUNT W/DIF F RDW 12.8 % 11.7-1 4.6 normal Not Available [address] [place], [address] 03/10/2024 20:24:03 03/10/20 24 03/10/2024 COMPL ETE BLOOD COUNT W/DIF F platelet count 293 10_3/ uL 130-40 0 normal Not Available [address] [place], [address] 03/10/2024 20:24:03 03/10/2003/10/2024 COMPL ETE BLOOD COUNT W/DIF F MPV 10.7 fL 8.0-11 .0 normal Not Available [address] [place], [address] 03/10/2024 20:24:03 03/10/2003/10/2024 COMPL ETE BLOOD COUNT W/DIF F neutrophils % 60.3 Not Available [address] [place], [address] 03/10/2024 20:24:03 03/10/20 24 03/10/2024 COMPL ETE BLOOD COUNT W/DIF F lymphocytes % 27.0 Not Available [address] [place], [address] 03/10/2024 20:24:03 03/10/20 24 03/10/2024 COMPL ETE BLOOD COUNT W/DIF F monocytes % 7.9 Not Available [address] [place], [address] 03/10/2024 20:24:03 03/10/20 24 03/10/2024 COMPL ETE BLOOD COUNT W/DIF F eosinophils % 3.9 Not Available [address] [place], [address] 03/10/2024 20:24:03 03/10/20 24 03/10/2024 COMPL ETE BLOOD COUNT W/DIF F basophils % 0.6 Not Available [address] [place], [address] 03/10/2024 20:24:03 03/10/20 24 03/10/2024 COMPL ETE BLOOD COUNT W/DIF F immature grans % 0.3 Not Available [address] [place], [address] 03/10/2024 20:24:03 03/10/20 24 03/10/2024 COMPL ETE BLOOD COUNT W/DIF F nucleated RBC 0.0 % 0.0-0. 3 normal Not Available [address] [place], [address] 03/10/2024 20:24:03 03/10/20 24 03/10/2024 COMPL ETE BLOOD COUNT W/DIF F absolute neutrophil count 4.37 10_3/ uL 1.2-6. 7 normal Not Available [address] [place], [address] 03/10/2024 20:24:03 03/10/20 24 03/10/2024 COMPL ETE BLOOD COUNT W/DIF F absolute lymphocyte count 1.95 10_3/ uL 1.2-3. 4 normal Not Available [address] [place], [address] 03/10/2024 20:24:03 03/10/20 24 03/10/2024 COMPL ETE BLOOD COUNT W/DIF F absolute monocyte count 0.57 10_3/ uL 0.1-0. 8 normal Not Available [address] [place], [address] 03/10/2024 20:24:03 03/10/20 24 03/10/2024 COMPL ETE BLOOD COUNT W/DIF F absolute eosinophil count 0.28 10_3/ uL 0.0-0. 7 normal Not Available [address] [place], [address] 03/10/2024 20:24:03 03/10/20 24 03/10/2024 COMPL ETE BLOOD COUNT W/DIF F absolute basophil count 0.04 10_3/ uL 0.0-0. 2 normal Not Available [address] [place], [address] 03/10/2024 20:24:03 03/10/20 24 03/10/2024 TSH (W/RE F FT4) TSH (w/ref FT4) 6.45 uIU/m L 0.36-3 .74 high Not Available [address] [place], [address] 03/10/2024 20:43:00 03/10/20 24 03/10/2024 TSH (W/RE F FT4) TSH (w/ref FT4) 6.45 uIU/m L 0.36-3 .74 high Not Available [facility] (Registration ) [address] [place] [address] [place], [address], 03/10/2024 21:08:02 03/10/20 24 03/10/2024 FREE T4 free T4 0.89 NG/dL 0.76-1 .46 normal Not Available [address] [place], [address] 03/10/2024 21:08:03 03/10/20 24 03/11/2024 HIV-1 /2 AG AB SCREE N HIV-1/2 Ag Ab screen Negati ve negati ve Not Available [facility] (Registration ) [address] [place] [address] [place], [address], 03/12/2024 09:00:24 03/10/20 24 03/11/2024 HEPAT ITIS C AB W RFLX HCV PCR hepatitis C Ab W rflx HCV PCR Negati ve negati ve Not Available [facility] (Registration ) [address] [place] [address] [place], [address], 03/12/2024 09:00:25 03/29/20 24 03/29/2024 VAGIN AL PATHO GEN SCREE N vaginal pathogen screen Not Available [address] [place], [address] 03/29/2024 21:05:53 11/04/20 23 11/04/2023 kellie r monit or Holter Monito r PATIEN T NAME: Ekta [place] V UNIT #: [id number] ORDERI NG PROVID ER: Rita Quiroga M.D. ACCOUN T #: [id number] PRIMAR Y CARE PROVID ER: RITA QUIROGA MD DATE/T MICHELLE OF SERVI CE: : 1989 AMY BONILLA ON: CARDOP NVT ------ ------ --- APPROV ED REPORT ------ ------ -- Conclu zully This is a 47-marilu r Holter monito r ordere d for palpit ations Rhythm alea murrieta was sinus with an averag e heart rate of 67. Minimu m was 44, maximu m 142 There were very rare isolat ed atrial (10) and ventri cular( 47) ectopi c beats There was no atrial fibril lation , no high-g rade AV block, no pauses greate r than 3 second s Multip le patien t sympto ms were report ed which had no correl ation to any dysrhy thmia ------ ------ ------ ------ ------ ------ ------ ------ ------ ------ ------ ------ ------ ------ ------ ------ ---- ------ - E-Sign Date: E-Sign Time: 0941 [email or web address] [facility] [address], [address] 11/04/2023 12:13:05 Result Notes None recorded. Problems Name Status Onset Date Resolution Date Notes Provider Name and Address Organization Details Recorded Time Epidermoid cyst of skin Completed 201405/30/2015 Problem Code: L72.3; Problem Code Type: ICD-10; Not Available [facility] 3 04:48:05 Fatigue Completed 201505/21/2016 Problem Code: R53.83; Problem Code Type: ICD-10; Not Available [facility] 3 04:48:05 Disorder of skin and/or subcutaneous tissue Completed 201508/29/2016 07/05/2016 - Comments only - Rita Quiroga MD - pper her request, she is referred to dermatology. Problem Code: L98.9; Problem Code Type: ICD-10; Not Available [facility] 3 04:48:05 Traumatic or non-traumatic injury Completed 201507/26/2016 07/05/2016 - Comments only - Rita Quiroga MD - Of her foot, no evidence of fracture, simply monitoring for now. Problem Code: T14.8; Problem Code Type: ICD-10; Not Available [facility] 3 04:48:05 Localized enlarged lymph nodes Completed 201507/26/2016 07/05/2016 - Comments only - Rita Quiroga MD - This is not diffuse, has been only present for a few days, and is tender, most likely a reactive lymphadenopat hy. Return to clinic if she develops diffuse lymphadenopat hy Problem Code: R59.0; Problem Code Type: ICD-10; Not Available [facility] 3 04:48:05 Acute upper respiratory infection Completed 201611/03/2017 10/20/2017 - Comments only - Rita Quiroga MD - symptomatic treatment with tylenol or NSAIDs, discussed natural history of viral URI, sytmpoms up to 10-14 days. Problem Code: J06.9; Problem Code Type: ICD-10; Not Available [facility] 3 04:48:06 Adult health examination Active [address], [place], [address] , [facility]. 4 22:19:38 Nonulcer dyspepsia Active 2017 PH[place], [place] - [facility]. 4 10:25:18 Allergic rhinitis Completed 201708/27/2023 03/07/2023 - Comments only - Rita Quiroga MD - Better with singulair, and her cough is much better as well. Does continue to loratadine as well. Problem Code: J30.9; Problem Code Type: ICD-10; Not Available [facility] 3 04:48:06 Chronic tension-type headache Active [address], [place], [address] , [facility] 3 15:42:23 Idiopathic osteoarthriti s Active [address], [place], [address] , [facility] 4 22:20:00 Acute upper respiratory infection Completed 201802/08/2019 01/25/2019 - Comments only - Rita Quiroga MD - No evidence currently of bacterial superinfectio n, somatic treatment. Written information for trying to avoid sinusitis is written and given. Problem Code: J06.9; Problem Code Type: ICD-10; Not Available [facility] 3 04:48:06 Acute upper respiratory infection Completed 201806/16/2019 Problem Code: J06.9; Problem Code Type: ICD-10; Not Available [facility] 3 04:48:07 Fatigue Completed 201806/16/2019 06/02/2019 - Comments only - Rita Quiroga MD - Will check CBC. She has been anemic in the past. Problem Code: R53.83; Problem Code Type: ICD-10; Not Available [facility] 3 04:48:07 Anemia Completed 201806/16/2019 Problem Code: D64.9; Problem Code Type: ICD-10; Not Available [facility] 3 04:48:07 Non-suppurati ve otitis media Completed 201806/16/2019 06/02/2019 - Comments only - Rita Quiroga MD - If symptoms worsen, I gave her a written prescription for amoxicillin 500 3 times daily to fill. Problem Code: H65.92; Problem Code Type: ICD-10; Not Available [facility] 3 04:48:07 Tinnitus of left ear Active 2018 ENT/hearing evaluation normal [address], [place], [address] , [facility] 4 22:18:27 Neck pain Completed 201811/17/2019 11/03/2019 - Comments only - Rita Quiroga MD - Referral to physical therapy Problem Code: M54.2; Problem Code Type: ICD-10; Not Available [facility] 3 04:48:07 Cough Completed 201812/13/2019 11/29/2019 - Comments only - Shelialesvia Mendoza [employer] - Likely due to post-nasal drip and [...] Code Type: ICD-10; Not Available [facility] 3 04:48:08 Asteatosis cutis Completed 201812/13/2019 11/29/2019 - Comments only - Shelia Mendzoa [employer] - Due to history of eczema as a child and current presentation, likely eczema. Encouraged use of emollient cream and protecting from cold air. Problem Code: L85.3; Problem Code Type: ICD-10; Not Available [facility] 3 04:48:08 Mild intermittent asthma Active 2019 PHILIP dahl [facility]. 4 10:25:14 Contraception care management Active 2019 PHILIP dahl [facility]. 4 10:22:54 Left upper quadrant pain Completed 202009/12/2021 08/29/2021 - Comments only - Rita Quiroga MD - With perhaps a bit of nausea. Labs were drawn today including liver function tests and lipase, will get an abdominal ultrasound, and given possibility that this is some atypical reflux, will start omeprazole 20 mg daily. She prefers to get this [id number] ter. Problem Code: R10.12; Problem Code Type: ICD-10; Not Available [facility] 3 04:48:08 Nausea Completed 202009/12/2021 Problem Code: R11.0; Problem Code Type: ICD-10; Not Available [facility] 3 04:48:08 Palpitations Active 2021 reassuring holter monitors 12/2021 and 10/2023- PAC and PVCs metoprolol 10/2023 RITA QUIROGA MD [facility] [address] [place], [place], [address] , [facility] 4 22:21:38 Irritable bowel syndrome Active 2022 PHILIP dahl [facility] 4 10:25:02 Acute vaginitis Completed 202206/30/2023 06/16/2023 - Comments only - Rita Quiroga MD - vaginal screen obtained today. Problem Code: N76.0; Problem Code Type: ICD-10; Not Available [facility] 3 04:48:09 Anxiety disorder Active 2022 [place] - [facility] 4 10:25:50 Pelvic and perineal pain Completed 202003/07/2023 Problem Code: R10.2; Problem Code Type: ICD-10; Not Available [facility] 3 04:48:10 Gastroesophag eal reflux disease without esophagitis Completed 201708/27/2023 06/02/2019 - Comments only - Rita Quiroga MD - Continue with ranitidine. Problem Code: K21.9; Problem Code Type: ICD-10; Not Available [facility] 3 04:48:10 Pain of left knee joint Completed 201809/13/2020 Problem Code: M25.562; Problem Code Type: ICD-10; Not Available [facility] 3 04:48:10 Bilateral disorder of Eustachian tubes Completed 201803/15/2020 Problem Code: H69.83; Problem Code Type: ICD-10; Not Available [facility] 3 04:48:10 Pain of left wrist Completed 202003/07/2023 Problem Code: M25.532; Problem Code Type: ICD-10; Not Available [facility] 3 04:48:10 Pain of right shoulder joint Completed 201709/13/2020 Problem Code: M25.511; Problem Code Type: ICD-10; Not Available [facility] 3 04:48:11 Vaginal bleeding Completed 201704/30/2018 Not Available [facility] 3 04:48:11 Family history of hemochromatos is Completed 201508/27/[address], [place], [address] , [facility] 4 22:16:04 Health condition feared but not present Completed 202206/16/2023 Problem Code: Z71.1; Problem Code Type: ICD-10; Not Available [facility] 3 04:48:11 Acute upper respiratory infection Completed 202103/07/2023 Problem Code: J06.9; Problem Code Type: ICD-10; Not Available [facility] 3 04:48:11 Uncomplicated mild persistent asthma Completed 201908/27/2023 03/15/2020 - Comments only - Rita Quiroga MD - Continue wtih the singulair. Will try to control her nose/allergie s as much as possible with neti pot and flonase daily. Referral to Dr. Slaughter for allergy testing. Use albuterol prior to exercise. If symptoms persist, follow up and will consider adding inhaled steroid with or without LABA. Problem Code: J45.30; Problem Code Type: ICD-10; Not Available [facility] 3 04:48:12 History of Lyme disease Active 2023 PHILIP dahl, [facility] 4 10:24:38 Rhinitis Active 2017 allergic MD [address], [place], [address] , [facility] 4 22:17:08 Tension-type headache Active 2018 Stormy Lau null, [facility] 4 14:03:32 Family history of hemochromatos is Active [address], [place], [address] , [facility] 4 22:16:04 Past history of ectopic Active 2016 while on paraguard, treated with medications. MD [address]ian [address], [facility] [address] , [facility] 4 22:16:57 Recurrent major depression Active [address], [facility] [address] , [facility] 4 22:19:29 Subclinical hypothyroidis m Active [address], [place], [address] , [facility] 4 22:28:28 Problem Notes None recorded. Procedures Surgical History None recorded. Imaging Results Imaging Date Name Status LastModified by Organiz ation Details LastModified Time 11/04/2023 holter monitor completed [email or web address] [facility] [address] , [place], [address] 11/04/2023 12:13:05 Procedure Notes None recorded. Medical Equipment None Reported. [...] Available Not Avai lable [facility] spacer USE DIRECTED 03/10 completed Not Available Not Available Not Available Vitals Date Recorded Body height Body mass index (BMI) Body weight Body temperature Heart rate Respiratory rate Systolic blood pressure Diastolic blood pressure Provider Name and Address Organization Details Last Updated DateTime 3 160.02 cm 23.9 kg/m2 66704.9 7 g 98.1 [degF] 64 /min 16 /min 124 mm[Hg] 80 mm[Hg] NICOLTETE HELTON LPN [facility] 3 15:36:39 Date Recorded Body height Body mass index (BMI) Body weight Body temperature Oxygen saturation Oxygen saturation in Arterial blood by Pulse oximetry Heart rate Systolic blood pressure Diastolic blood pressure Provider Name and Address Organization Details Last Updated DateTime 4 160.02 cm 24.2 kg/m2 71724 g 98.1 [degF] 95 % 95 % 80 /min 114 mm[Hg] 58 mm[Hg] JOSEFINA JIMENEZ MA [facility] 4 09:29:02 Date Recorded Body height Body mass index (BMI) Body weight Body temperature Respiratory rate Heart rate Systolic blood pressure Diastolic blood pressure Provider Name and Address Organization Details Last Updated DateTime 4 160.02 cm 24.4 kg/m2 64991.7 5 g 98.2 [degF] 14 /min 76 /min 116 mm[Hg] 84 mm[Hg] NICOLETTE HELTON LPN [facility] 4 15:09:12 Social History Question Answer Notes LastModified by Organization Details LastModified Time Tobacco Smoking Status Never Smoker occassionally in the past NICOLETTE HELTON LPN [facility] 03/10/2024 15:12:04 Would You Say That, In [...] Recorded Time MMR 07/28/1990 completed Not Available [facility] 05:27:43 MMR 09/27/1998 completed Not Available [facility] 05:27:44 DTaP, unspecified formulation 05/13/1994 completed Not Available [facility] 10/10/2023 05:27:44 DTaP, unspecified formulation 1989 completed Not Available [facility] 10/10/2023 05:27:44 DTaP, unspecified formulation 1989 completed Not Available [facility] 10/10/2023 05:27:44 DTaP, unspecified formulation 10/02/1990 completed Not Available [facility] 10/10/2023 05:27:44 DTaP, unspecified formulation 1989 completed Not Available [facility] 10/10/2023 05:27:44 meningococcal ACWY, unspecified formulation 07/02/2007 completed Not Available [facility] 10/10/2023 05:27:44 Tdap 02/08/2011 completed Not Available [facility] 05:27:44 Tdap 08/29/2021 completed Not Available [facility] 05:27:45 HPV, unspecified formulation 04/28/2008 completed Not Available [facility] 10/10/2023 05:27:45 HPV, unspecified formulation 07/02/2007 completed Not Available [facility] 10/10/2023 05:27:45 HPV, unspecified formulation 10/20/2007 completed Not Available [facility] 10/10/2023 05:27:45 Td(adult) unspecified formulation 09/24/2004 completed Not Available [facility] 10/10/2023 05:27:45 Influenza, split virus, quadrivalent, PF 08/29/2021 completed Not Available [facility] 10/10/2023 05:27:45 Influenza, split virus, quadrivalent, PF 09/13/2020 completed Not Available [facility] 10/10/2023 05:27:45 Influenza, MDCK, trivalent, PF 10/11/2015 completed Not Available [facility] 10/10/2023 05:27:45 COVID-19, mRNA, LNP-S, PF, 30 mcg/0.3 mL dose 02/09/2021 completed Not Available [facility] 10/10/2023 05:27:45 COVID-19, mRNA, LNP-S, PF, 30 mcg/0.3 mL dose 03/09/2021 completed Not Available [facility] 10/10/2023 05:27:46 SARS-COV-2 (COVID-19) vaccine, UNSPECIFIED 08/28/2022 completed Not Available [facility] 10/10/2023 05:27:46 SARS-COV-2 (COVID-19) vaccine, UNSPECIFIED 09/24/2021 completed Not Available [facility] 10/10/2023 05:27:46 Hep B, unspecified formulation 07/04/2000 completed Not Available [facility] 10/10/2023 05:27:46 Hep B, unspecified formulation 07/27/1997 completed Not Available [facility] 10/10/2023 05:27:46 Hep B, unspecified formulation 10/08/1999 completed Not Available [facility] 10/10/2023 05:27:46 Hep A, unspecified formulation 12/03/2006 completed Not Available [facility] 10/10/2023 05:27:46 Hep A, unspecified formulation 05/02/2005 completed Not Available [facility] 10/10/2023 05:27:46 influenza, unspecified formulation 09/10/2018 completed Not Available [facility] 10/10/2023 05:27:46 influenza, unspecified formulation 09/14/2019 completed Not Available [facility] 10/10/2023 05:27:47 polio, unspecified formulation 05/03/1994 completed Not Available [facility] 10/10/2023 05:27:47 polio, unspecified formulation 1989 completed Not Available [facility] 10/10/2023 05:27:47 polio, unspecified formulation 1989 completed Not Available [facility] 10/10/2023 05:27:47 COVID-19, mRNA, LNP-S, PF, sb-sucrose, 30 mcg/0.3 mL 09/24/2023 completed Not Available [facility] 12/12/2023 05:33:14 Past Encounters Encounter ID Performer Location Encounter Start Date Encounter Closed Date Diagnosis/Indication Diagnosis SNOMED-CT Code [id number] RITA QUIROGA MD [facility] [address] [place] [address] 11/14/2023 15:25:50 11/14/2023 16:01:43 Palpitations [id number] Bronchospasm [id number] HAJA GARZA [facility] [address] [place] [address] 02/19/2024 09:17:54 02/19/2024 10:01:12 Anxiety [id number] Mild inter mittent asthma [id number] RITA QUIROGA MD [facility] [address] [place] [address] 03/10/2024 14:51:45 03/10/2024 15:57:19 Adult health examination [id number] Subclinica l hypothyroidism [id number] Night sweats [id number] Anxiety 85462386 Rhinitis 82002718 Palpitations [id number] Lynne Drake RN [facility] [address] [place] [address] 06/10/2024 10:23:38 06/10/2024 10:36:34 Hypothyroidism [id number] Health Concerns Section Related Observation LastModified by Organization Detai ls LastModified Time None Recorded Concern Status LastModified by Organization Details LastModified Time None Recorded Advance Directives Directive None Recorded Payers Encounter Date Sequence Insurance Name Policy Number Policy Cruz Covered Member ID Cruz Member ID Guarantor Name 11/14/2023 1 [place] Roxanne V [place] [id number] Roxanne V [place] 02/19/2024 1 [place] Roxanne V [place] [id number] Roxanne V [place] 03/10/2024 1 [place] Roxanne V [place] [id number] Roxanne V [place] 06/10/2024 1 [place] Roxanne V [place] [id number] Roxanne V [place] Notes Date Note Type Note Provider Name and Address Organization Details Recorded Time 11/14/2023 text/html HPI Notes: She underwent 48 hour pot firer 11/04/23, which was totally normal. She had a few PAC and PVC, but her symptoms did not correlate with these. METOPROLOL 25 mg BID she did take this a few times before heart monitor was placed, whole pill made her sleepy so she took a half pill. She has not bee taking since heart monitor, wanted to discuss. Feels that she did not have any many palpitations when she was wearing it. She has had a virus since 11/04, went to walk in clinic 11/07, she was tested for COVID and flu, both were negative. She is better, but coughing a lot at night w/o relief. Does not drink any palpitations. RITA QUIROGA MD [address], [place], [address], [facility]. 11/14/2023 16:36:02 02/19/2024 text/html HPI Notes: Pt, 33-F, hx. 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 She has family hx. of hypothyroid, HH. Pt. reports she has been feeling better since Covid some weeks ago although she reports some increase in congestion this morning. She reports some seasonal allergies as well. Asthma: Pt. states she doesn't know if this diagnosis is true or not. She reported she saw help desk intern who guided she has environmental allergies, but not asthma. She does have cold air sensitivity. She has never experiences chest acute chest tightness. Anxiety: Pt. reports she may be considering job change next year as school is a major source of stress for her w/regard to teaching. 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 HAJA GARZA [address], [place], [address], [facility]. 02/19/2024 11:00:13 03/10/2024 text/html HPI Notes: Here for Annual Exam. Interval history form was reviewed, including comprehensive ROS form. ROS negative throughout with the exception as noted below: She thinks she has some ongoing health issues, she thinks it might be d/t stress. She would like to check thyroid. She feels like her balance is off a bit, denies dizziness, JIMENEZ or visual issues. She does feel some days she might be getting an ear infection, hurts when she presses on her ear. She is sweating a lot at night. Seems to correlate with vivid scary dreams. She thinks it is related to stress. weight has slowly steadily increased over the last 5 years. No weight loss, energy and appetite are fine. No swollen glands. In the am when balanced on one foot seems that it is harder to stay balanced. Seems better, can still go to exercise class. Intermittent aching in her ears. She had normal CBC and iron studies done 05/2023 She believes she had a pap last year. She will call them palpitations-? metoprolol- exercise and evening metoprolol dose seems to work. Using the metoprolol PRN. Anxiety/depression- taking the escitalopram 15 mg daily. She has given her notice for teaching, and is looking for different work. This has been an extremely stressful school year for her. FH hemocromatosis- ? genetic testing? (normal LFTs 2021, iron saturation was 25% last May) subclinical hypothyroid- Last TSH slightly high 05/2023 (4.82), sister recently told she too had slightly elevated TSH. RITA QUIROGA MD [address], [place], [address], [place] [facility]. 03/10/2024 16:48:25 OBGyn Episode No OBEpisode recorded.
--- OUTSIDE RECORDS SUMMARY | 2024-06-10 13:55 | XMS_ITS | Encounter Summary ---
Author Organization [facility] Address [address] [place] [address] Care Team Providers Care Sales Representative Health Insurance Name Role Phone Rita Quiroga MD Primary Care Provider [phone] Encounter Details Date Type Department Care Team (Late st Contact Info) Description 04/30/2017 9:55 EDT - 04/30/2017 23:59 EDT Hospital Encounter [facility] [address] [place] [address] Jenifer Baker MD [address] [place] [address], [facility] [address] [place] [address] Discharge Disposition: Home or Self [...] Code Departure Means Destination Home or Self Retirement documented in this encounter Plan of Treatment Not on file documented as of this encounter Visit Diagnoses Not on filedocumented in this encounter Care Teams Sales Representative Health Insurance Relationship Specialty Start Date End Date Rita Quiroga MD [address] [place] [phone] PCP - General 04/13/17 documented as of this encounter
--- OUTSIDE RECORDS SUMMARY | 2024-06-10 13:55 | XMS_ITS | Encounter Summary ---
Author Organization [facility] Address [address] [place] [address] Care Team Providers Care Physical Science Professor Name Role Phone Rita Quiroga MD Primary Care Provider [phone] Encounter Details Date Type Department Care Team (Late Contact Info) Description 12/11/2017 Phlebotomy Only [address] [address] Research Contracts Supervisor, Outpatient Abnormal uterine bleeding (Primary Dx) Social History Tobacco Use Types [...] Date/Time Associated Diagnosis Comments QUANT BETA HCG, STAT 12/11/2017 12:04 EST Abnormal uterine bleeding documented in this encounter Results * HCG FOR (12/11/2017 12:04 EST) Quant Beta HCG, Preg <5 <5 mIU/ml 12/11/2017 12:50 EST [facility] Comment: Reference Range: Negative = <5 Indeterminate = 5-25 recommend repeat in 48 hours. Positive = >25 Blood specimen (specimen) BLOOD SPECIMEN / Unknown 12/11/2017 12:04 EST 12/11/2017 12:12 EST Jenifer Baker MD CHEMISTRY & BLOO D GAS ORDERABLES [facility] [address] [place] [address] documented in this encounter Visit Diagnoses Diagnosis Abnormal uterine bleeding- Primary Unspecified disorder of menstruation and other abnormal bleeding from female genital tract documented in this encounter Care Teams Physical Science Professor Relationship Specialty Start Date End Date Rita Quiroga MD [address] [place] [phone] PCP - General 04/13/17 documented as of this encounter
--- OUTSIDE RECORDS SUMMARY | 2024-06-10 13:55 | XMS_ITS | Encounter Summary ---
Author Organization [facility] Address [address] [place] [address] Care Team Providers Care Rotor Casting Machine Operator Name Role Phone Rita Quiroga MD Primary Care Provider [phone] Reason for Visit * Reason Onset Date Comments Ectopic 04/30/2017 Encounter Details Date Type Department Care Team ([facility] Contact Info) Description 04/30/2017 Telephone [facility] - [address] [address] Leni Delgado RN Ectopic Social History Tobacco [...] Telephone Encounter - Leni Delgado RN - 04/30/2017 0402 EDT Component Latest Ref Rng & Units 04/30/2017 HCG <5 mIU/ml <5 Roxanne has been made aware of her results and no further monitoring needed. She has a question about breast tenderness; discussed hcg is <5, this is the most sensitive test, this indicates she is no longer /ectopic has resolved. Possibly could a sign her menses isabout to return. Advised strict condom use or abstinence until BCT 05/05/17. Pre-certification form submitted for IUD (all types) and nexplanon. Roxanne is agreeable to this plan and verbalized understanding. documented in this encounter Plan of Treatment Not on file documented as of this encounter Visit Diagnoses Not on filedocumented in this encounter Care Teams Rotor Casting Machine Operator Relationship Specialty Start Date End Date Rita Quiroga MD [address] [place] [phone] PCP - General 04/13/17 documented as of this encounter
--- OUTSIDE RECORDS SUMMARY | 2024-06-10 13:56 | XMS_ITS | Encounter Summary ---
Author Organization [facility] Address [address] [place] [address] Care Team Providers Care Nurse Staff Community Health Name Role Phone Phyllis Vega MD Primary Care Provider [phone] Encounter Details Date Type Department Care Team (Late st Contact Info) Description 04/12/2017 Orders Only Non [facility] Ancillary Services Christine Michelle, MANUFACTURING CLERK [address] [place] [address] Other specified related conditions, first trimester (Primary Dx) Social History Tobacco Use Types [...] this encounter Results * (ABNORMAL) HCG FOR (04/13/2017 9:36 EDT) Quant Beta HCG, Preg 267(H) <5 mIU/ml 04/13/2017 11:33 EDT [facility] Comment: Reference Range: Negative = <5 Indeterminate = 5-25 recommend repeat in 48 hours. Positive = >25 Blood specimen (specimen) BLOOD SPECIMEN / Unknown 04/13/2017 9:36 EDT 04/13/2017 10:49 EDT Christine Michelle MANUFACTURING CLERK CHEMISTRY & BLOOD G ORDERABLES [facility] [address] [place] [address] documented in this encounter Visit Diagnoses Diagnosis Other specified related conditions, first trimester- Primary documented in this encounter Orders Lab Orders Without Results Count Last Ordered D ate First Ordered Date HCG FOR 1 04/12/2017 documented in this encounter Care Teams Nurse Staff Community Health Relationship Specialty Start Date End Date Phyllis Vega MD [address] [place] [phone] PCP - General 03/24/09 04/12/17 documented as of this encounter
--- OUTSIDE RECORDS SUMMARY | 2024-06-10 13:56 | XMS_ITS | Encounter Summary ---
Author Organization [facility] Address [address] [place] [address] Care Team Providers Care Brand Attendant Name Role Phone Phyllis Vega MD Primary Care Provider [phone] Encounter Details Date Type Department Care Team ([facility] Contact Info) Description 06/11/2010 12:51 EDT - 06/11/2010 23:59 EDT Hospital Encounter [facility] [address] [place] [address] Mauri Ware MD [address] [place] [address] [address] [place] [address] Discharge Disposition: Home or Self Care Social History Tobacco Use Types Packs/Day Years Used Date Smoking Tobacco: Never Alcohol Use Standard Drinks/Week Comments No 0 (1 standard drink = 0.6 oz pur e alcohol) Sex and Gender Information Value Date Recorded Sex Assigned at Not on file Gender Identity Not on file Sexual Orientation Not on file documented as of this encounter Medications at Time of Discharge Medication Sig Dispensed Refills Start Date End Date citalopram (CELEXA) 20 mg tablet Take 20 mg by mouth daily. 04/13/2017 omeprazole (PRILOSEC) 20 mg capsule Take 20 mg by mouth daily. 04/13/2017 ondansetron (ZOFRAN) 4 mg tablet Take 1 Tab by mouth every 8 hours as needed for Nausea. 20 Tab 0 02/16/2010 04/12/2011 documented as of this encounter Discharge Disposition Disposition Code Departure Means Destination Home or Self Assisted documented in this encounter Plan of Treatment Not on file documented as of this encounter Procedures Procedure Name Priority Date/Time Associated Diagnosis Comments IBC Routine 06/11/2010 13:10 EDT TISSUE TRANSGLUTAMINASE ANTIBODY Routine 06/11/2010 13:10 EDT IGA Routine 06/11/2010 13:10 EDT COMPLETE BLOOD COUNT Routine 06/11/2010 13:10 EDT IRON Routine 06/11/2010 13:10 EDT FERRITIN Routine 06/11/2010 13:10 EDT HEPATIC FUNCTION PANEL (ALB,ALK PHOS,ALT,AST,DBIL,TOT CHERYL,TOT PROT) Routine 06/11/2010 13:10 EDT documented in this encounter Results * IGA (06/11/2010 13:10 EDT) IgA 119 82 - 453 mg/dl [facility] Blood specimen (specimen) 06/11/2010 13:10 EDT 06/11/2010 13:12 EDT Mauri Ware MD CHEMISTRY & BLO OD GAS ORDERABLES Performing Organization Address [facility] Co de Phone Number [facility] [address] [place] [address] * TISSUE TRANSGLUTAMINASE ANTIBODY (06/11/2010 13:10 EDT) Tissue Transglutaminase Ab 1.28 <15.01 U/ml [facility] Blood specimen (specimen) 06/11/2010 13:10 EDT 06/11/2010 13:12 EDT Mauri Ware MD IMMUNOLOGY AND SEROLOGY ORDERABLES Performing Organization Address [facility] Co de Phone Number [facility] [address] [place] [address] * LIVER FUNCTION TESTS (06/11/2010 13:10 EDT) Albumin 4.9 3.4 - 4.9 g/dl [facility] Total Protein 7.5 6.5 - 8.3 g/dl [facility] Total Alkaline Phosphatase 80 38 - 126 U/L [facility] ALT 23 9 - 52 U/L [facility] AST 27 15 - 46 U/L [facility] Unconjugated Bilirubin 0.6 0.1 - 1.1 mg/dl [facility] Conjugated Bilirubin 0.0 0.0 - 0.3 mg/dl [facility] Bilirubin, Total 0.5 0.2 - 1.3 mg/dl [facility] Blood specimen (specimen) 06/11/2010 13:10 EDT 06/11/2010 13:12 EDT Mauri Ware MD CHEMISTRY & BLO OD GAS ORDERABLES Performing Organization Address [facility]/ZIP Co de Phone Number [facility] [address] [place] [address] * (ABNORMAL) FERRITIN (06/11/2010 13:10 EDT) Pathologist [facility] Ferritin 5(L) 10 - 291 ng/mL [facility] Blood specimen (specimen) 06/11/2010 13:10 EDT 06/11/2010 13:12 EDT Mauri Ware MD CHEMISTRY & BLO OD GAS ORDERABLES Performing Organization Address [facility]/ZIP Co de Phone Number [facility] [address] [place] [address] * (ABNORMAL) IBC (06/11/2010 13:10 EDT) TIBC 554(H) 265 - 497 ug/dl [facility] Blood specimen (specimen) 06/11/2010 13:10 EDT 06/11/2010 13:12 EDT Mauri Ware MD CHEMISTRY & BLO OD GAS ORDERABLES Performing Organization Address [facility] Co de Phone Number [facility] [address] [place] [address] * IRON (06/11/2010 13:10 EDT) Iron 62 60 - 180 ug/dl [facility] Blood specimen (specimen) 06/11/2010 13:10 EDT 06/11/2010 13:12 EDT Mauri Ware MD CHEMISTRY & BLO OD GAS ORDERABLES Performing Organization Address [facility] Co de Phone Number [facility] [address] [place] [address] * (ABNORMAL) HEMAGRAM (06/11/2010 13:10 EDT) WBC 6.59 4.0 - 12.4 K/cmm [facility] RBC 3.93 3.86 - 5.04 M/cmm [facility] Hemoglobin 10.5(L) 11.6 - 15.2 gm/dl [facility] HCT 31.2(L) 34.9 - 44.4 % [facility] MCV 79(L) 81 - 98 fl [facility] MCH 26.8 26.7 - 33.3 pg [facility] MCHC 33.8 32.1 - 35.9 gm/dl [facility] PLT 222 141 - 320 K/cmm [facility] RDW-CV 16.1(H) 11.7 - 14.6 % [facility] Blood specimen (specimen) 06/11/2010 13:10 EDT 06/11/2010 13:12 EDT Mauri Ware MD HEMATOLOGY & PF 4 ORDERABLES Performing Organization Address [facility] Co de Phone Number [facility] [address] [place] [address] documented in this encounter Visit Diagnoses Not on filedocumented in this encounter Care Teams Brand Attendant Relationship Specialty Start Date End Date Phyllis Vega MD [address] [place] [phone] PCP - General 03/24/09 04/12/17 documented as of this encounter
--- OUTSIDE RECORDS SUMMARY | 2024-06-10 13:56 | XMS_ITS | Encounter Summary ---
Author Organization [facility] Address [address] [place] [address] Care Team Providers Care Welfare Worker Name Role Phone Rita Quiroga MD Primary Care Provider [phone] Encounter Details Date Type Department Care Team (Latest Contact Info) Description 04/13/2017 9:25 EDT - 04/13/2017 23:59 EDT Hospital Encounter [address] [address] Christine Michelle, CORPORATE SALES TRAINER [address] [place] [address] Discharge Disposition: Auto Discharge Social History Tobacco [...] as of this encounter Discharge Diagnoses Diagnosis O26.891 Other specified related conditions, first trimester-O26.891[ICD-10-CM] documented in this encounter Medications at Time [...] on filedocumented in this encounter Care Teams Welfare Worker Relationship Specialty Start Date End Date Rita Quiroga MD [address] [place] [phone] PCP - General 04/13/17 documented as of this encounter
--- OUTSIDE RECORDS SUMMARY | 2024-06-10 13:56 | XMS_ITS | Encounter Summary ---
Author Organization [facility] Address [address] [place] [address] Care Team Providers Care Distribution Accounting Clerk Name Role Phone Rita Quiroga MD Primary Care Provider [phone] Encounter Details Date Type Department Care Team (Late Contact Info) Description 04/13/2017 Phlebotomy Only [address] [address] Operations Assistant, Outpatient Other specified related conditions, first trimester (Primary [...] Associated Diagnosis Comments QUANT BETA HCG, STAT 04/13/2017 9:36 EDT Other specified related conditions, first trimester documented in this encounter Results * (ABNORMAL) HCG FOR (04/13/2017 9:36 EDT) Quant Beta HCG, Preg 267(H) <5 mIU/ml 04/13/2017 11:33 EDT [facility] Comment: Reference Range: Negative = <5 Indeterminate = 5-25 recommend repeat in 48 hours. Positive = >25 Blood specimen (specimen) BLOOD SPECIMEN / Unknown 04/13/2017 9:36 EDT 04/13/2017 10:49 EDT Christine Michelle CONTAINER SHOP WELDER CHEMISTRY & BLOOD G ORDERABLES [facility] [address] [place] [address] documented in this encounter Visit Diagnoses Diagnosis Other specified related conditions, first trimester- Primary documented in this encounter Care Teams Distribution Accounting Clerk Relationship Specialty Start Date End Date Rita Quiroga MD [address] [place] [phone] PCP - General 04/13/17 documented as of this encounter
--- OUTSIDE RECORDS SUMMARY | 2024-06-10 13:56 | XMS_ITS | Encounter Summary ---
Author Organization [facility] Address [address] [place] [address] Care Team Providers Care Concrete Foreman Name Role Phone Phyllis Vega MD Primary Care Provider [phone] Encounter Details Date Type Department Care Team (Late st Contact Info) Description 09/13/2009 Abstract [facility] [address] [address] Phyllis Vega MD [address] [place] [phone] Insertion of Intrauterine Contraceptive Device Social History Tobacco Use Types Packs/Day Years Used Date Smoking Tobacco: Never Assessed Sex and Gender Information Value Date Recorded Sex Assigned at Not on file Gender Identity Not on file Sexual Orientation Not on file documented as of this encounter Plan of Treatment Not on file documented as of this encounter Visit Diagnoses Diagnosis Encounter for insertion or removal of intrauterine contraceptive device documented in this encounter Care Teams Concrete Foreman Relationship Specialty Start Date End Date Phyllis Vega MD [address] [place] [phone] PCP - General 03/24/09 04/12/17 documented as of this encounter
--- OUTSIDE RECORDS SUMMARY | 2024-06-10 13:56 | XMS_ITS | Encounter Summary ---
Author Organization [facility] Address [address] [place] [address] Care Team Providers Care Risk Professional Name Role Phone Phyllis Vega MD Primary Care Provider [phone] Encounter Details Date Type Department Care Team ([facility] Contact Info) Description 09/21/2010 Results Only [facility] [phone] Aracely Palma MD [address] [place] [phone] Social History Tobacco Use Types Packs/Day Years [...] Priority Date/Time Associated Diagnosis Comments SURGICAL PATHOLOGY Routine 09/21/2010 0:00 EDT documented in this encounter Results * SURGICAL PATHOLOGY (09/21/2010 0:00 EDT) Pathology Report: SURGICAL PATHOLOGY REPORT ? Reports generated via electronic interface contain original data; ? however they are lacking the format of the original report. ? Caution should be taken when reading/interpreti ng unformatted reports. ? Name: ? JA, ROXANNE V ? Accession #: ? [id number] ? : ? 1990 (Age: 20) ??F ? Collect Date: ? 09/21/2010 ? Location: ? [facility] ? Receive Date: ? 09/21/2010 ? Provider: ARACELY PALMA MD ? Copy to: ? Final Pathologic Diagnosis: ? Skin of eyelid, left upper, excision: ? - Hemangioma. ? Document reviewed and electronically signed by: ? DUSTIN A MARQUEZ MD ? Report ??Date: 09/24/2010 15:00 ? By the signature above, the attending physician certifies that he/she has ? personally conducted a gross and/or microscopic examination of the described ? specimens and rendered or confirmed the above diagnosis. ? Specimen(s) Received: ? Vascular lid lesion ? Clinical History: ? Clinical diagnosis code: 238.2; per specimen diagram, lesion is located on left upper eyelid ? Gross Description: ? Received in formalin labelled [place], Roxanne and vascular lid lesion is a 0.3 x 0.2 x 0.2 cm shave biopsy of jameson-brown skin. ??The specimen is ? submitted intact in one cassette. ??(Dr. Lea)/mms ? End of Report ? [facility] 09/21/2010 09/21/2010 19: 25 EDT Aracely Palma MD PATHOLOGY ORDERABL ES Performing Organization Address City/State/[facility] Co de Phone Number [facility] [address] [place] [address] documented in this encounter Visit Diagnoses Not on filedocumented in this encounter Care Teams Risk Professional Relationship Specialty Start Date End Date Phyllis Vega MD [address] [place] [phone] PCP - General 03/24/09 04/12/17 documented as of this encounter
--- OUTSIDE RECORDS SUMMARY | 2024-06-10 13:56 | XMS_ITS | Encounter Summary ---
Author Organization [facility] Address [address] [place] [address] Care Team Providers Care Tyre Retreader Name Role Phone Phyllis Vega MD Primary Care Provider [phone] Encounter Details Date Type Department Care Team (Late Contact Info) Description 01/26/2014 Phlebotomy Only [address] [address] [address] Cleaner, Outpatient Social History Tobacco Use Types Packs/Day Years [...] on filedocumented in this encounter Care Teams Tyre Retreader Relationship Specialty Start Date End Date Phyllis Vega MD [address] [place] [phone] PCP - General 03/24/09 04/12/17 documented as of this encounter
--- OUTSIDE RECORDS SUMMARY | 2024-06-10 13:56 | XMS_ITS | Encounter Summary ---
Author Organization [facility] Address [address] [place] [address] Care Team Providers Care Grinder Chipper Name Role Phone Rita Quiroga MD Primary Care Provider [phone] Encounter Details Date Type Department Care Team (Latest Contact Info) Description 04/15/2017 9:35 EDT - 04/15/2017 23:59 EDT Hospital Encounter [address] [address] Christine Michelle, MAINTENANCE SUPERVISOR 2ND SHIFT [address] [place] [address] Discharge Disposition: Home or Self Care Social [...] Code Departure Means Destination Home or Self Mcfp documented in this encounter Plan of Treatment Not on file documented as of this encounter Visit Diagnoses Not on filedocumented in this encounter Care Teams Grinder Chipper Relationship Specialty Start Date End Date Rita Quiroga MD [address] [place] [phone] PCP - General 04/13/17 documented as of this encounter
--- OUTSIDE RECORDS SUMMARY | 2024-06-10 13:56 | XMS_ITS | Encounter Summary ---
Author Organization [facility] Address [address] [place] [address] Care Team Providers Care Nutrition Club Ambassador Name Role Phone Phyllis Vega MD Primary Care Provider [phone] Encounter Details Date Type Department Care Team ([facility] Contact Info) Description 12/30/2011 Phlebotomy Only [address] [address] Training Associate, Outpatient Ocular migraine; Headache; Photopsia Social History Tobacco Use Types Packs/Day Years [...] Procedure Name Priority Date/Time Associated Diagnosis Comments BUN Routine 12/30/2011 13:42 EST Ocular migraine Headache CREATININE Routine 12/30/2011 13:42 EST Ocular migraine Photopsia documented in this encounter Results * CREATININE (12/30/2011 13:42 EST) Creatinine 0.71 0.52 - 1.04 mg/dl [facility] GFR, Calculated >60 >60 ml/min/1.7 3m2 [facility] Blood specimen (specimen) 12/30/2011 13:42 EST 12/30/2011 14:26 EST Daljit Dyer MD CHEMISTRY & BLOOD G ORDERABLES Performing Organization Address [facility] Co de Phone Number [facility] [address] [place] [address] * BUN (12/30/2011 13:42 EST) BUN 13 10 - 26 mg/dl [facility] Blood specimen (specimen) 12/30/2011 13:42 EST 12/30/2011 14:26 EST Daljit Dyer MD CHEMISTRY & BLOOD G ORDERABLES Performing Organization Address [facility] de Phone Number [facility] [address] [place] [address] documented in this encounter Visit Diagnoses Diagnosis Ocular migraine Variants of migraine, not elsewhere classified, without mention of intractable migraine without mention of status migrainosus Headache(784.0) Headache Photopsia Other visual distortions and entoptic phenomena documented in this encounter Care Teams Nutrition Club Ambassador Relationship Specialty Start Date End Date Phyllis Vega MD [address] [place] [phone] PCP - General 03/24/09 04/12/17 documented as of this encounter
--- OUTSIDE RECORDS SUMMARY | 2024-06-10 13:56 | XMS_ITS | Encounter Summary ---
Author Organization [facility] Address [address] [place] [address] Care Team Providers Care Pipeline Engineer Name Role Phone Rita Quiroga MD Primary Care Provider [phone] Encounter Details Date Type Department Care Team (Late st Contact Info) Description 04/16/2017 Phlebotomy Only [address] [address] Cash Register Balancer, Outpatient of unknown anatomic location (Primary Dx) Social History Tobacco Use Types [...] Procedure Name Priority Date/Time Associated Diagnosis Comments COMPLETE BLOOD COUNT Routine 04/16/2017 8:37 EDT of unknown anatomic location QUANT BETA HCG, Routine 04/16/2017 8:37 EDT of unknown anatomic location BUN Routine 04/16/2017 8:37 EDT of unknown anatomic location ALT Routine 04/16/2017 8:37 EDT of unknown anatomic location AST Routine 04/16/2017 8:37 EDT of unknown anatomic location CREATININE Routine 04/16/2017 8:37 EDT of unknown anatomic location documented in this encounter Results * (ABNORMAL) BUN (04/16/2017 8:37 EDT) BUN 8(L) 10 - 26 mg/dl 04/16/2017 9:38 EDT [facility] Blood specimen (specimen) BLOOD SPECIMEN / Unknown 04/16/2017 8:37 EDT 04/16/2017 8:53 EDT Jenifer Baker MD CHEMISTRY & BLOO D GAS ORDERABLES Performing Organization Address City/[facility] Co de Phone Number [facility] [address] [place] [address] * CREATININE (04/16/2017 8:37 EDT) Creatinine 0.61 0.52 - 1.04 mg/dl 04/16/2017 9:38 EDT [facility] GFR, Calculated 124 >60 ml/min/1.7 3m2 04/16/2017 9:38 EDT [facility] Comment: eGFR calculated using CKD-EPI equation for non Americans. Multiply eGFR by 1.16 for Americans. Blood specimen (specimen) BLOOD SPECIMEN / Unknown 04/16/2017 8:37 EDT 04/16/2017 8:53 EDT Jenifer Baker MD CHEMISTRY & BLOO D GAS ORDERABLES Performing Organization Address City/[facility]/ZIP Co de Phone Number [facility] [address] [place] [address] * AST (04/16/2017 8:37 EDT) AST 18 15 - 46 U/L 04/16/2017 9:38 EDT [facility] Blood specimen (specimen) BLOOD SPECIMEN / Unknown 04/16/2017 8:37 EDT 04/16/2017 8:53 EDT Jenifer Baker MD CHEMISTRY & BLOO D GAS ORDERABLES [facility] [address] [place] [address] * ALT (04/16/2017 8:37 EDT) ALT 20 <53 U/L 04/16/2017 9:38 EDT [facility] Blood specimen (specimen) BLOOD SPECIMEN / Unknown 04/16/2017 8:37 EDT 04/16/2017 8:53 EDT Jenifer Baker MD CHEMISTRY & BLOO D GAS ORDERABLES Performing Organization Address City/[facility] Co de Phone Number [facility] [address] [place] [address] * (ABNORMAL) HEMAGRAM (04/16/2017 8:37 EDT) WBC 7.89 4.0 - 12.4 K/cmm 04/16/2017 9:16 [facility] RBC 4.29 3.86 - 5.04 M/cmm 04/16/2017 9:16 [facility] Hemoglobin 11.8 11.6 - 15.2 gm/dl 04/16/2017 9:16 [facility] HCT 35.6 34.9 - 44.4 % 04/16/2017 9:16 [facility] MCV 83 81 - 98 fl 04/16/2017 9:16 [facility] MCH 27.5 26.7 - 33.3 pg 04/16/2017 9:16 [facility] MCHC 33.1 32.1 - 35.9 gm/dl 04/16/2017 9:16 [facility] RDW-CV 15.1(H) <14.7 % 04/16/2017 9:16 [facility] RDW-SD 46.3 <50.4 fl 04/16/2017 9:16 [facility] PLT 287 141 - 377 K/cmm 04/16/2017 9:16 EDT [facility] MPV 11.0 9.5 - 12.7 fl 04/16/2017 9:16 EDT [facility] Blood specimen (specimen) BLOOD SPECIMEN / Unknown 04/16/2017 8:37 EDT 04/16/2017 8:53 EDT Jenifer Baker MD HEMATOLOGY & PF4 ORDERABLES Performing Organization Address City/[facility]/ZIP Co de Phone Number [facility] [address] [place] [address] * (ABNORMAL) HCG FOR (04/16/2017 8:37 EDT) Quant Beta HCG, Preg 317(H) <5 mIU/ml 04/16/2017 9:38 EDT [facility] Comment: Reference Range: Negative = <5 Indeterminate = 5-25 recommend repeat in 48 hours. Positive = >25 Blood specimen (specimen) BLOOD SPECIMEN / Unknown 04/16/2017 8:37 EDT 04/16/2017 8:53 EDT Jenifer Baker MD CHEMISTRY & BLOO D GAS ORDERABLES [facility] [address] [place] [address] documented in this encounter Visit Diagnoses Diagnosis of unknown anatomic location- Primary state, incidental documented in this encounter Care Teams Pipeline Engineer Relationship Specialty Start Date End Date Rita Quiroga MD [address] [place] [phone] PCP - General 04/13/17 documented as of this encounter
--- OUTSIDE RECORDS SUMMARY | 2024-06-10 13:56 | XMS_ITS | Encounter Summary ---
Author Organization [facility] Address [address] [place] [address] Care Team Providers Care Geodetic Computator Name Role Phone Phyllis Vega MD Primary Care Provider [phone] Reason for Visit * Reason Comments Eye Flashes And/Or Floaters Increase in Floater, both eyes (blue spots). Worse if Pt is stressed out. Stopped Celexa last summer. No flashes or eyepain. Vision stable, no changes. Encounter Details Date Type Department Care Team (Late st Contact Info) Description 12/24/2011 8:00 EST Office Visit [facility] Ophthalmology - [address] [address] Daljit Dyer MD [address] [place] [address], [address] [place] [address] Social History Tobacco Use Types Packs/Day Years [...] Dispensed Refills Start Date End Da te DIAZepam (VALIUM) 5 mg tablet Take 1 Tab by mouth 2 times daily for 1 day. Take one tablet at instruction of MRI staff. May repeat times one 2 Tab 0 12/24/2011 12/25/2011 documented in this encounter Progress Notes * Daljit Dyer MD - 12/24/2011 525 EST DIVISION OF OPHTHALMOLOGY [facility] December 24, 2011 Phyllis Vega MD [address] [phone] Vega: Roxanne Beltran was reexamined today. She has had persistence and, in fact, some increase of the flashing lights. Specifically, the blue flashing lights. They are troubling her somewhat more at this time. These also occasionally are associated with headaches, but not always. We did reexamine her today. Specifically, the vision continues to be excellent at 20/20 in each eye. The color vision is normal. The Amsler grid shows a bit of distortion of the grid in the right eyeand normal in the left. The dilated examination continues to be unremarkable including normal opticnerves, vessels and macular region and the retina is attached. The visual jasso continue to be normal. Because of the persistence and, in fact, increasing frequency of the photopsias, I have recommendedthat we carry out an MRI scan. The only reservation is that she does have a copper IUD. The brand is ParaGard. I have put that on the form. Radiology will alert us if that is a contraindication. I will see her after the MRI scan. Sincerely, Electronically Signed by Daljit Dyer MD 01/05/2012 20:00 Aj Romero MD - Daljit Dyer MD - Job ID: Doc ID: [id number] [facility] Doc ID: [id number] cc: Phyllis Vega MD * Daljit Dyer MD - 12/24/2011 0982 EST This note has been dictated and scanned. I saw and examined the patient with the scribe. I agree with the findings documented in the scribes note. . Base Ophthalmology Exam Visual Acuity Right Left Both Dist cc 20/20 20/20 Near cc J1+ J1+ Method: Snellen - Linear Correction: Glasses Tonometry Right Left Pressure 12 11 Method: Applanation Time: 9:02 Wearing Rx Sphere Cylinder China Right +0.75 +3.00 095 Left -0.25 +0.25 100 Type: Reading Wearing Rx #2 Sphere Cylinder [place] Right +1.25 +2.50 91 Left -0.25 +0.25 96 Type: SVL Manifest Refraction Sphere Cylinder Right -0.25 clearer Left -0.25 clearer Stereo Fly: Lan secs Color Right Left Color 11/13 Method: AO PIP Dilation Both eyes: Paremyd, @ 9:02 Comments: 0.5% Myd and 2.5% Phen at 9:17am Pupils Dark Light React APD Right 6 3 Brisk None Left 6 3 Brisk None Visual Jasso Right Left Result Full Full Extraocular Movement Right Left Result Full, Ortho Full, Ortho Base Ophthalmology Exam Addl. Tests Amsler Right Left Amsler Center of grid blurry Normal Main Ophthalmology Exam Slit Lamp Exam Right Left Lids/Lashes Make up,, Blepharitis Make up,, Blepharitis Conjunctiva/Sclera No LG stain No LG stain Cornea Stain++, TBUT 5secs No stain, TBUT 5 secs Anterior Chamber Deep and quiet Deep and quiet Iris Round and reactive Round and reactive Neuro/Psych Oriented x3: Yes Mood/Affect: Normal Cornea examined, all 5 layers. ROS, Medications, Allergies reviewed. CVF, Pupil check and EOM's rechecked to include versions & ductions. Lids, lashes, lacrimal and orbit examined. All normal unless otherwise noted. This note has been dictated and scanned. 78D and Indrect were used for the posterior exam. IMP: Roxanne was seen today for eye flashes and/or floaters. Diagnoses and associated orders for this visit: Ocular migraine Blepharitis, both eyes Myopia Vitreous syneresis Unspecified chorioretinal scar PLAN: Test Performed: F 30-2/24-2 Indications for test: photopsia/ headache Results/Findings: WNL each eye Plan: MRI head documented in this encounter Miscellaneous Notes * Scanned Note-Null - Seaming Inspector, Scan - 12/25/2011 0954 EST documented in this encounter Plan of Treatment Not on file documented as of this encounter Procedures Procedure Name Priority Date/Time Associated Diagnosis Comments MR HEAD W/WO CONTRAST 01/20/2012 23:09 EST documented in this encounter Results * MR HEAD W/WO CONTRAST (01/20/2012 23:09 EST) Anatomical Region Laterality Modality Other 01/20/2012 23:0 9 EST 01/21/2012 8:32 EST Narrative 01/21/2012 8:32 EST MRI of the brain January 20, 2012 at 2138. History: Headache and visual changes. Comparison: None. Technique: Sagittal T1, axial T2, axial T2 FLAIR, axial T1, coronal T1, diffusion, axial T1 postcontrast, and reformatted images of the brain were acquired. Findings: The cerebellar tonsils project just slightly below the foramen magnum, within normal limits there is no intracranial mass, mass effect, or midline shift. No extra-axial collections are identified. There is no restricted diffusion present to suggest recent acute ischemia. The ventricles are normal in size and shape. The basal cisterns are patent. There is no abnormal enhancement within the brain parenchyma on the post gadolinium images. The orbits appear unremarkable. There are a few small retropharyngeal lymph nodes within normal limits for size and a few small areas of T2 hyperintensity within the parotid glands bilaterally, also likely reflecting intraparotid lymph nodes. The paranasal sinuses and mastoids are clear. Impression: No acute intracranial abnormality. Procedure Note 01/21/2012 MRI of the brain January 20, 2012 at 2138. History: Headache and visual changes. Comparison: None. Technique: Sagittal T1, axial T2, axial T2 FLAIR, axial T1, coronal T1, diffusion, axial T1 postcontrast, and reformatted images of the brain were acquired. Findings: The cerebellar tonsils project just slightly below the foramen magnum, within normal limits there is no intracranial mass, mass effect, or midline shift. No extra-axial collections are identified. There is no restricted diffusion present to suggest recent acute ischemia. The ventricles are normal in size and shape. The basal cisterns are patent. There is no abnormal enhancement within the brain parenchyma on the post gadolinium images. The orbits appear unremarkable. There are a few small retropharyngeal lymph nodes within normal limits for size and a few small areas of T2 hyperintensity within the parotid glands bilaterally, also likely reflecting intraparotid lymph nodes. The paranasal sinuses and mastoids are clear. Impression: No acute intracranial abnormality. Daljit Dyer MD IMG MRI ORDERABLES * CREATININE (12/30/2011 13:42 EST) Creatinine 0.71 0.52 - 1.04 mg/dl [facility] GFR, Calculated >60 >60 ml/min/1.7 3m2 [facility] Blood specimen (specimen) 12/30/2011 13:42 EST 12/30/2011 14:26 EST Daljit Dyer MD CHEMISTRY & BLOOD G ORDERABLES Performing Organization Address [facility] Co de Phone Number [facility] [address] [place] [address] * BUN (12/30/2011 13:42 EST) BUN 13 10 - 26 mg/dl [facility] Blood specimen (specimen) 12/30/2011 13:42 EST 12/30/2011 14:26 EST Daljit Dyer MD CHEMISTRY & BLOOD G ORDERABLES Performing Organization Address [facility] Co de Phone Number [facility] [address] [place] [address] documented in this encounter Visit Diagnoses Diagnosis Ocular migraine- Primary Variants of migraine, not elsewhere classified, without mention of intractable migraine without mention of status migrainosus Blepharitis, both eyes Blepharitis, unspecified Myopia Vitreous syneresis Other vitreous opacities Unspecified chorioretinal scar Chorioretinal scar, unspecified Photopsia Other visual distortions and entoptic phenomena Headache(784.0) Headache documented in this encounter Eye Exam Visual Acuity (Snellen - Linear) Right eye Left eye Dist cc 20/20 20/20 Near cc J1+ J1+ Correction: Glasses Tonometry (Applanation, 9:02) Right eye Left eye Pressure 12 11 Pupils Dark Light React APD Right eye 6 3 Brisk None Left eye 6 3 Brisk None Visual Jasso Right eye Left eye Full Full Extraocular Movement Right eye Left eye Full, Ortho Full, Ortho Neuro/Psych Oriented x3: Yes Mood/Affect: Normal Dilation Both eyes: Paremyd, @ 9:02 0.5% Myd and 2.5% Phen at 9:17am Amsler Right eye Left eye Center of grid blurry Normal Color Right eye Left eye AO PIP 14 Stereo Lan secs Slit Lamp Exam Right eye Left eye Lids/Lashes Make up,, Blepharitis Make up,, Blepharitis Conjunctiva/Sclera No LG stain No LG stain Cornea Stain++, TBUT 5secs No stain, TB UT 5 secs Anterior Chamber Deep and quiet Deep and quiet Iris Round and reactive Round and deja ctive Lens Trace Nuclear sclerosis Trace Nu clear sclerosis Vitreous Vitreous syneresis Vitreous syne resis Wearing Rx #1 Sphere Cylinder [place] Right eye +0.75 +3.00 095 Left eye -0.25 +0.25 100 Type: Reading Wearing Rx #2 Sphere Cylinder [place] Right eye +1.25 +2.50 91 Left eye -0.25 +0.25 96 Type: SVL Manifest Refraction Sphere Cylinder Right eye -0.25 clearer Left eye -0.25 clearer Care Teams Geodetic Computator Relationship Specialty Start Date End Date Phyllis Vega MD [address] [place] [phone] PCP - General 03/24/09 04/12/17 documented as of this encounter
--- OUTSIDE RECORDS SUMMARY | 2024-06-10 13:56 | XMS_ITS | Encounter Summary ---
Author Organization [facility] Address [address] [place] [address] Care Team Providers Care Licensed Nurse Practitioner Name Role Phone Phyllis Vega MD Primary Care Provider [phone] Encounter Details Date Type Department Care Team (Latest Contact Info) Description 01/26/2014 8:21 EST - 01/26/2014 23:59 EST Hospital Encounter [facility] [address] [place] [address] Rita Quiroga MD [address] [place] [phone] Discharge Disposition: Auto Discharge Social History Tobacco [...] as of this encounter Discharge Diagnoses Diagnosis 783.21 LOSS OF WEIGHT[ICD-9-CM] V77.91 SCREENING FOR LIPOID DISORDERS[ICD-9-CM] documented in this encounter Medications at Time of Discharge Medication Sig Dispensed Refills Start Date End Date citalopram (CELEXA) 20 mg tablet Take 20 mg by mouth daily. 04/13/2017 FAMOTIDINE (PEPCID ORAL) Take by mouth. 0 04/13/2017 ibuprofen 200 mg Cap Take 200 mg by mouth daily as needed. 04/13/2017 Multivitamins with Minerals Tab Take 1 Tab by mouth daily. 04/13/2017 omeprazole (PRILOSEC) 20 mg capsule Take 20 mg by mouth daily. 04/13/2017 documented as of this encounter Discharge Disposition Disposition Code Departure Means Destination Auto Discharge Home documented in this encounter Plan of Treatment Not on file documented as of this encounter Procedures Procedure Name Priority Date/Time Associated Diagnosis Comments THYROID CASCADE Routine 01/26/2014 8:40 EST LIPID PROFILE (INCLUDES CHOLESTEROL, TRIGLYCERIDES, HDL, LDL) Routine 01/26/2014 8:40 EST BASIC METABOLIC PANEL (BMP) Routine 01/26/2014 8:40 EST documented in this encounter Results * THYROID CASCADE (01/26/2014 8:40 EST) TSH 2.85 0.35 - 5.00 uIU/ml [facility] Comment: TSH cascade is not recommended for patients in which pituitary or hypothalamic disorders are suspected. 01/26/2014 8:40 EST 01/26/2014 10:14 EST Rita Quiroga MD CHEMISTRY & BLOOD GA S ORDERABLES [facility] [address] [place] [address] * LIPID PROFILE (INCLUDES CHOLESTEROL, TRIGLYCERIDES, HDL, LDL) (01/26/2014 8:40 EST) Cholesterol 183 mg/dl [facility] Comment: Icteric Icterus is not a quantitative measurement of bilirubin. Desirable:<200 Borderline High:200-239 High:>gt=620 Triglycerides 46 mg/dl [facility] Comment: Icteric Icterus is not a quantitative measurement of bilirubin. Normal:<150 Borderline High:150-199 High:200-499 Very High:>qg=517 HDL 59 mg/dl [facility] Comment: Icteric Icterus is not a quantitative measurement of bilirubin. Low:<40 Normal:40-60 Desirable: >60 LDL, Calculated 115 mg/dl [facility] Comment: Optimal:<100 Near Optimal:100-129 Borderline High:130-159 High:160-189 Very High:>ze=580 Chol/HDL Ratio 3.1 [facility] Fasting? YES [facility] Non HDL Cholesterol 124 mg/dl [facility] Comment: Icteric Icterus is not a quantitative measurement of bilirubin. Desirable:<130 Borderline:130-159 High: 160-189 Very High: >tm=459 01/26/2014 8:40 EST 01/26/2014 10:14 EST Rita Quiroga MD CHEMISTRY & BLOOD GA S ORDERABLES [facility] [address] [place] [address] * BASIC METABOLIC PANEL (01/26/2014 8:40 EST) Sodium 137 136 - 145 mEq/L [facility] Comment: Icteric Icterus is not a quantitative measurement of bilirubin. Potassium 4.0 3.5 - 5.0 mEq/L [facility] Comment: Icteric Icterus is not a quantitative measurement of bilirubin. Chloride 96 96 - 110 mEq/L [facility] Comment: Icteric Icterus is not a quantitative measurement of bilirubin. CO2 28 24 - 32 mEq/L [facility] Comment: Icteric Icterus is not a quantitative measurement of bilirubin. BUN 12 10 - 26 mg/dl [facility] Comment: Icteric Icterus is not a quantitative measurement of bilirubin. Creatinine 0.71 0.52 - 1.04 mg/dl [facility] Comment: Icteric Icterus is not a quantitative measurement of bilirubin. GFR, Calculated >60 >60 ml/min/1.7 3m2 [facility] Calcium 9.5 8.5 - 10.5 mg/dl [facility] Comment: Icteric Icterus is not a quantitative measurement of bilirubin. Calculated Calcium 9.0 8.5 - 10.5 mg/dl [facility] Glucose, Serum 80 70 - 100 mg/dl [facility] Comment: Icteric Icterus is not a quantitative measurement of bilirubin. Fasting? YES [facility] 01/26/2014 8:40 EST 01/26/2014 10:14 EST Rita Quiroga MD CHEMISTRY & BLOOD GA S ORDERABLES Performing Organization Address City/State/[facility] Co de Phone Number [facility] [address] [place] [address] documented in this encounter Visit Diagnoses Not on filedocumented in this encounter Care Teams Licensed Nurse Practitioner Relationship Specialty Start Date End Date Phyllis Vega MD [address] [place] [phone] PCP - General 03/24/09 04/12/17 documented as of this encounter
--- OUTSIDE RECORDS SUMMARY | 2024-06-10 13:56 | XMS_ITS | Encounter Summary ---
Author Organization [facility] Address [address] [place] [address] Care Team Providers Care Container Finishing Inspector Name Role Phone Phyllis Vega MD Primary Care Provider [phone] Reason for Visit * Reason Comments Follow-up Hx of photopsias. Hx of migraines. Myopia. Still has blue spots in vision and squiggly floaters but no change. va stable. No pain. Encounter Details Date Type Department Care Team (Late st Contact Info) Description 04/12/2011 8:45 EDT Office Visit [facility] Ophthalmology - Main [address] [id number] Terry Sal MD [address] [place] [address], [address] [place] [address] Social History Tobacco Use Types Packs/Day Years Used Date Smoking Tobacco: Never Alcohol Use Standard Drinks/Week Comments No 0 (1 standard drink = 0.6 oz pur e alcohol) Sex and Gender Information Value Date Recorded Sex Assigned at Not on file Gender Identity Not on file Sexual Orientation Not on file documented as of this encounter Progress Notes * Terry Sal MD - 04/24/2011 1212 EDT DIVISION OF OPHTHALMOLOGY LICENSE INSPECTOR CENTER PROGRESS/FOLLOWUP NOTE - 04/12/2011 Daljit Dyer MD [facility] - Ophthalmology [address] [place] [id number] Dear Daljit: This is a letter of introduction for a patient you are going to be seeing. I have seen Roxanne a couple of times for some odd symptoms that she has had. I originally saw her because of some spots in her vision. She describes them as blue spots that often get worse during times of stress or fatigue. Initially, it was in both eyes, worse in her right, and she feels like it has been the same, really since I started seeing her. I first started seeing her in 10/2010 and I just saw her today in 03/2011. Daljit, I would like you to just weigh in on whether or not anything else needs to be done. It sounds to me like an ocular-type migraine symptom. This especially seems consistent to me given her vision seems to get worse during times of fatigue or stress. She will be seeing you in the next couple months. I told her that she should likely see a retina specialist every couple of years just because of the degree of myopia she has. She is graduating from college in a couple of months and so she may not be here in a couple years, so if she does not see me in a couple years she will find another retina specialist to see. Again, I do not think there is anything further to be done, but I want to make sure about the blue spots. Thanks again, Daljit. She will be seeing you in the next 2-3 months. Sincerely, Electronically Signed by Terry Sal MD 04/24/2011 12:12 Terry Sal MD Retina and Vitreous Service [address] [place] [address] - Terry Sal MD - [facility] Job ID: SM Doc ID: [id number] [facility] Doc ID: [id number] cc: MD Manda Rosales OD * Terry Sal MD - 04/12/2011 0919 EDT Chief Complaint Patient presents with ??? Follow-up Hx of photopsias. Hx of migraines. Myopia. Still has blue spots in vision and squiggly floaters but no change. va stable. No pain. HPI Location: Right eye Pain: 0 - No pain Quality: Blurry Severity: Mild Duration: Months Timing: Constant Lasts: Months Context: va stable Modifying factors: Ok with glasses Associated Signs & Symptoms: chronic flashes and floaters Visual Fluctuations: Flashes;Floaters Attestation: Base Ophthalmology Exam Visual Acuity Right Left Dist cc 20/20 20/20 Method: Snellen - Linear Correction: Glasses Tonometry Right Left Pressure 14 14 Method: Applanation Time: 8:58 Dilation Both eyes: 1.0% Mydriacyl @ 8:58 Pupils Pupils Right PERRL Left PERRL Main Ophthalmology Exam External Exam Right Left External Normal Normal Slit Lamp Exam Right Left Lids/Lashes Normal Normal Conjunctiva/Sclera White and quiet White and quiet Cornea Clear Clear Anterior Chamber Deep and quiet Deep and quiet Iris Round and reactive Round and reactive Lens Clear Clear Vitreous Vitreous syneresis Vitreous syneresis Fundus Exam Right Left Disc tilted tilted C/D Ratio 0.3 0.3 Macula Normal Normal Vessels Normal Normal Periphery CR Scar 9 o'clock Normal Neuro/Psych Oriented x3: Yes Mood/Affect: Normal All five layers of the cornea are normal unless otherwise specified. Please refer to large retinal drawing. IMPRESSION: 1. Ocular migraine (346.20DD) 2. Myopia (367.1) 3. 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 Pt likely moving from [facility] after graduation from college She knows to see either me in 2 years or a retinal specialist where she moves in two years I, Dr. Terry Sal, have performed my own HPI and reviewed the tech's ROS. I have also reviewed thepatient's past medical, family, social and surgical history, as well as the patient's medications, allergies, and problem list. I am scribing for Dr. Terry Sal MD while he is personally performing the service. MARIA VICTORIA Michelle (Scribe) documented in this encounter Plan of Treatment Not on file documented as of this encounter Visit Diagnoses Diagnosis Ocular migraine Variants of migraine, not elsewhere classified, without mention of intractable migraine without mention of status migrainosus Myopia Vitreous syneresis Other vitreous opacities Chorioretinal scar, unspecified documented in this encounter Discontinued Medications Medication Sig Discontinue Reason Start Date End Da te ondansetron (ZOFRAN) 4 mg tablet Take 1 Tab by mouth every 8 hours as needed for Nausea. Therapy completed 02/16/2010 04/12/2011 documented as of this encounter Eye Exam Visual Acuity (Snellen - Linear) Right eye Left eye Dist cc 20/20 20/20 Correction: Glasses Tonometry (Applanation, 8:58) Right eye Left eye Pressure 14 14 Pupils Pupils Right eye PERRL Left eye PERRL Neuro/Psych Oriented x3: Yes Mood/Affect: Normal Dilation Both eyes: 1.0% Mydriacyl @ 8:58 External Exam Right eye Left eye External Normal Normal Slit Lamp Exam Right eye Left eye Lids/Lashes Normal Normal Conjunctiva/Sclera White and quiet White and kenzie et Cornea Clear Clear Anterior Chamber Deep and quiet Deep and quiet Iris Round and reactive Round and deja ctive Lens Clear Clear Vitreous Vitreous syneresis Vitreous syne resis Fundus Exam Right eye Left eye Disc tilted tilted C/D Ratio 0.3 0.3 Macula Normal Normal Vessels Normal Normal Periphery CR Scar 9 o'clock Normal Care Teams Container Finishing Inspector Relationship Specialty Start Date End Date Phyllis Vega MD [address] [place] [phone] PCP - General 03/24/09 04/12/17 documented as of this encounter
--- OUTSIDE RECORDS SUMMARY | 2024-06-10 13:56 | XMS_ITS | Encounter Summary ---
Author Organization [facility] Address [address] [place] [address] Care Team Providers Care Show Design Supervisor Name Role Phone Rita Quiroga MD Primary Care Provider [phone] Encounter Details Date Type Department Care Team (Late st Contact Info) Description 04/13/2017 Orders Only Non [facility] Ancillary Services Christine Michelle, HOT STICK MAN [address] [place] [address] Other specified related conditions, first [...] this encounter Results * (ABNORMAL) HCG FOR (04/15/2017 10:03 EDT) Quant Beta HCG, Preg 287(H) <5 mIU/ml 04/15/2017 11:32 EDT [facility] Comment: Reference Range: Negative = <5 Indeterminate = 5-25 recommend repeat in 48 hours. Positive = >25 Blood specimen (specimen) BLOOD SPECIMEN / Unknown 04/15/2017 10:03 EDT 04/15/2017 10:45 EDT Christine Michelle HOT STICK MAN CHEMISTRY & BLOOD G ORDERABLES [facility]ORATORY SERVICES [address] [place] [address] documented in this encounter Visit Diagnoses Diagnosis Other specified related conditions, first trimester- Primary documented in this encounter Care Teams Show Design Supervisor Relationship Specialty Start Date End Date Rita Quiroga MD [address] [place] [phone] PCP - General 04/13/17 documented as of this encounter
--- OUTSIDE RECORDS SUMMARY | 2024-06-10 13:56 | XMS_ITS | Encounter Summary ---
Author Organization [facility] Address [address] [place] [address] Care Team Providers Care Varnish Supervisor Name Role Phone Phyllis Vega MD Primary Care Provider [phone] Encounter Details Date Type Department Care Team ([facility] Contact Info) Description 10/20/2013 12:56 EST - 10/20/2013 23:59 EST Hospital Encounter [facility] - Other [address] [place] [address] Nam Winslow MD [address] [facility], [address] [place] [address] Discharge Disposition: Home or Self [...] Code Departure Means Destination Home or Self Residential documented in this encounter Plan of Treatment Not on file documented as of this encounter Visit Diagnoses Not on filedocumented in this encounter Care Teams Varnish Supervisor Relationship Specialty Start Date End Date Phyllis Vega MD [address] [place] [phone] PCP - General 03/24/09 04/12/17 documented as of this encounter
--- OUTSIDE RECORDS SUMMARY | 2024-06-10 13:56 | XMS_ITS | Encounter Summary ---
Author Organization [facility] Address [address] [place] [address] Care Team Providers Care Boatswain'S Mate Name Role Phone Rita Quiroga MD Primary Care Provider [phone] Encounter Details Date Type Department Care Team (Late Contact Info) Description 04/15/2017 Phlebotomy Only [address] [address] Paper Cone Machine Tender, Outpatient Other specified related conditions, first trimester [...] Associated Diagnosis Comments QUANT BETA HCG, Routine 04/15/2017 10:03 EDT Other specified related conditions, first trimester documented in this encounter Results * (ABNORMAL) HCG FOR (04/15/2017 10:03 EDT) Quant Beta HCG, Preg 287(H) <5 mIU/ml 04/15/2017 11:[address] [facility] Comment: Reference Range: Negative = <5 Indeterminate = 5-25 recommend repeat in 48 hours. Positive = >25 Blood specimen (specimen) BLOOD SPECIMEN / Unknown 04/15/2017 10:03 EDT 04/15/2017 10:45 EDT Christine Michelle BUSINESS REPORTING DEVELOPER CHEMISTRY & BLOOD G ORDERABLES [facility] [address] [place] [address] documented in this encounter Visit Diagnoses Diagnosis Other specified related conditions, first trimester- Primary documented in this encounter Care Teams Boatswain'S Mate Relationship Specialty Start Date End Date Rita Quiroga MD [address] [place] [phone] PCP - General 04/13/17 documented as of this encounter
--- OUTSIDE RECORDS SUMMARY | 2024-06-10 13:56 | XMS_ITS | Encounter Summary ---
Author Organization [facility] Address [address] [place] [address] Care Team Providers Care Mechanical Operator Name Role Phone Phyllis Vega MD Primary Care Provider [phone] Encounter Details Date Type Department Care Team ([facility] Contact Info) Description 01/20/2012 20:51 EST - 01/20/2012 23:59 EST Hospital Encounter [facility] [address] [place] [address] Daljit Dyer MD [address] [facility], [address] [place] [address] Discharge Disposition: Home or Self [...] Code Departure Means Destination Home or Self Penitentiary documented in this encounter Plan of Treatment Not on file documented as of this encounter Visit Diagnoses Not on filedocumented in this encounter Care Teams Mechanical Operator Relationship Specialty Start Date End Date Phyllis Vega MD [address] [place] [phone] PCP - General 03/24/09 04/12/17 documented as of this encounter
--- OUTSIDE RECORDS SUMMARY | 2024-06-10 13:56 | XMS_ITS | Encounter Summary ---
Author Organization [facility] Address [address] [place] [address] Care Team Providers Care Chief Ophthalmic Technician Name Role Phone Phyllis Vega MD Primary Care Provider [phone] Encounter Details Date Type Department Care Team (Late st Contact Info) Description 07/27/2010 12:48 EDT - 07/27/2010 23:59 EDT Hospital Encounter [facility] [address] [place] [address] Boo Jim MD 111 [facility], [address] [place] [address] Mauri Ware MD [address] [place] [address] [address] [place] [address] Discharge Disposition: Home or Self [...] Code Departure Means Destination Home or Self Prison documented in this encounter Procedure Notes * Inpatient, Physician - 07/27/2010 0000 EDTAssociated Order(s): ORDERS - SCANNED * Inpatient, Physician - 07/27/2010 0000 EDT * Inpatient, Physician - 07/27/2010 0000 EDTAssociated Order(s): PATHOLOGY - SCANNED documented in this encounter Miscellaneous Notes * Scanned Note-Null - Inpatient, Physician - 07/27/2010 0000 EDT * Scanned Note-Null - Inpatient, Physician - 07/27/2010 0000 EDT * Brief Op Note - Inpatient, Physician - 07/27/2010 0000 EDT documented in this encounter Plan of Treatment Not on file documented as of this encounter Procedures Procedure Name Priority Date/Time Associated Diagnosis Comments ORDERS - SCANNED 07/30/2010 8:38 EDT PATHOLOGY - SCANNED 07/30/2010 8:38 EDT documented in this encounter Results * ORDERS - SCANNED (07/30/2010 8:38 EDT) 07/30/2010 8:38 EDT Narrative Procedure Note Inpatient, Physician - 07/27/2010 0:00 EDT Physician Inpatient MD ADMISSION ORDERAB LES POINT OF CARE * PATHOLOGY - SCANNED (07/30/2010 8:38 EDT) 07/30/2010 8:38 EDT Narrative Procedure Note Inpatient, Physician - 07/27/2010 0:00 EDT Physician Inpatient LAB INFO SERVICE AND SUPPORT & PHONE RESULT POINT OF CARE documented in this encounter Visit Diagnoses Not on filedocumented in this encounter Care Teams Chief Ophthalmic Technician Relationship Specialty Start Date End Date Phyllis Vega MD [address] [place] [phone] PCP - General 03/24/09 04/12/17 documented as of this encounter
--- OUTSIDE RECORDS SUMMARY | 2024-06-10 13:56 | XMS_ITS | Encounter Summary ---
Author Organization [facility] Address [address] [place] [address] Care Team Providers Care Real Estate Transaction Coordinator Name Role Phone Phyllis Vega MD Primary Care Provider [phone] Encounter Details Date Type Department Care Team ([facility] Contact Info) Description 12/30/2011 13:31 EST - 12/30/2011 23:59 EST Hospital Encounter [facility] [address] [place] [address] Daljit Dyer MD 111 [facility] [address] [place] [address] Discharge Disposition: Home or Self [...] on filedocumented in this encounter Care Teams Real Estate Transaction Coordinator Relationship Specialty Start Date End Date Phyllis Vega MD [address] [place] [phone] PCP - General 03/24/09 04/12/17 documented as of this encounter
--- OUTSIDE RECORDS SUMMARY | 2024-06-10 13:56 | XMS_ITS | Encounter Summary ---
Author Organization [facility] Address [address] [place] [address] Care Team Providers Care Industrial Services Worker Name Role Phone Phyllis Vega MD Primary Care Provider [phone] Reason for Visit * Reason Comments Migraine Ref from Dr. Sal and [facility] office. Ocular migraine, Myopia, Vitreous syneresis and unspec.and chorioretinal scar. Vision good, no complaints. No change in glasses RX in 6 yrs. Last eye exam 1 yr ago. Left eye pain 2/10 lasting 1 hr, 1 week ago with a tension headache. Blue spots in vision R>L, 1 per week, last a few minutes,mostly happens if PT is tired or stressed out. Floaters both eyes, clear with squiggly lines, R>L. Migraine No history of - scal p tenderness, - ringing in ears, - trouble chewing, - head injuries, - motor noise, - polar bear liver. PT uses no eyedrops Encounter Details Date Type Department Care Team (Late st Contact Info) Description 06/12/2011 8:[address] [facility] Ophthalmology - [address] [address] Daljit Dyer MD [address] [facility], [address] [place] [address] Social History Tobacco Use Types [...] as of this encounter Progress Notes * Daljit Dyer MD - 06/20/2011 0803 EDT DIVISION OF OPHTHALMOLOGY ENROLLMENT PROCESSOR CENTER June 12, 2011 Sixto Lopes MD [facility] - Ophthalmology [address] [place] [address] Lopes: Roxanne Beltran was examined today. She was seen because of flashing lights in her eyes, more in the right eye than the left, that appear intermittently, lasting very short periods of time and tend to be blue. They last just seconds rather than minutes as one would anticipate with migraine. She notices they increase with stress or when she is tired. She feels they are less frequent now than they were previously. She has no family history of migraine. She does have tension headaches. She does believe that they do occur in one eye or the other, not in both eyes. I have asked her the next time she has them to cover that eye and see if they are occurring in the contralateral eye. Her examination is remarkably unremarkable. Specifically, she has perfect 20/15 vision. Color vision is normal at 14/14 correct in the right eye and 13/14 in the left eye. The pupils are equal without afferent defect. Motility and confrontation jasso are full. Amsler grid testing is normal in each eye. Slit lamp examination of the anterior segment is absolutely normal without reservation other than some very mildblepharitis. The media is clear. I felt there was some vitreous syneresis but no other significant vitreous pathology. I bow to your expertise, Dr Lopes, regarding the retina. Specifically, the optic nerves are pink and healthy; the nerves are vertically oval. There is minimal cupping of about 0.2in each eye. There are spontaneous venous pulsations in each eye, and the vessels and macular region are normal. Visual jasso were carried out, and these were absolutely normal without reservation. There are no scotomas or other abnormalities noted. Because her symptomatology is becoming less frequent, I am going to hold off on any neuroimaging. My suspicion is very low for any central nervous system pathology. I am going to leave it a bit open. If these increase in frequency or persist, the patient will giveme a call. We can always consider doing an MRI, but I do not see a good indication to do that now, especially in light of things improving. Thank you for allowing me to share in the care of this patient. I have not scheduled another appointment, but rather will leave it open, knowing she will call me if there is change or concern. Sincerely, Electronically Signed by Daljit Dyer MD 06/20/2011 08:03 Aj Romero MD - Daljit Dyer MD - [facility] Job ID: Doc ID: [id number] Ext Doc ID: [id number] cc: MD Phyllis Bal MD * Daljit Dyer MD - 06/12/2011 0947 EDT Base Ophthalmology Exam Visual Acuity Right Left Dist sc 20/20 20/20 Near cc J1+ J1+ Method: Snellen - Linear Correction: Glasses Tonometry Right Left Pressure 13 13 Method: Applanation Time: 8:56 Wearing Rx Sphere Cylinder Kintyre Right +1.25 +2.50 92 Left -0.25 +0.25 98 Age: 5 yrs Type: SINGLE Manifest Refraction (Auto) Sphere Cylinder [place]re Dist Right +1.25 +2.00 91 20/15 Left -1.25 +0.25 111 20/15 Stereo Circles: 50 secs Color Right Left Color Method: AOPIP Dilation Both eyes: PAREMYD @ 8:57 Pupils Pupils Dark Light React APD Right PERRL 5 3 Brisk None Left PERRL 5 3 Brisk None Comments: Pupil check by EVELIO Visual Jasso Right Left Result Full Full Extraocular Movement Right Left Result Full, Ortho Full, Ortho Base Ophthalmology Exam Addl. Tests Amsler Right Left Amsler Normal Normal Main Ophthalmology Exam Slit Lamp Exam Right Left Conjunctiva/Sclera no LG stain no LG stain Cornea no stain, TBUT 6secs no stain, TBUT 6secs Anterior Chamber Deep and quiet Deep and quiet Iris Round and reactive Round and reactive I am scribing for Daljit Dyer MD while he is personally performing the service. BENY ROCHAJESSICA 06/12/2011 9:46 This note has been dictated and scanned. Test Performed: [facility] 24-2 Indications for test: Ocular migraine Results/Findings: WNL each eye Plan: FU prn documented in this encounter Miscellaneous Notes * Scanned Note-Null - Eliel, Customer Service Leader - 06/14/2011 1131 EDT documented in this encounter Plan of Treatment Not on file documented as of this encounter Visit Diagnoses Diagnosis Ocular migraine- Primary Variants of migraine, not elsewhere classified, without mention of intractable migraine without mention of status migrainosus Myopia Vitreous syneresis Other vitreous opacities documented in this encounter Historical Medications * This list may reflect changes made after this encounter. Medication Sig Dispensed Refills Start Date End Date FAMOTIDINE (PEPCID ORAL) Take by mouth. 0 04/13/2017 added in this encounter Eye Exam Visual Acuity (Snellen - Linear) Right eye Left eye Dist sc 20/20 20/20 Near cc J1+ J1+ Correction: Glasses Tonometry (Applanation, 8:56) Right eye Left eye Pressure 13 13 Pupils Pupils Dark Light React APD Right eye PERRL 5 3 Brisk None Left eye PERRL 5 3 Brisk None Pupil check by EVELIO Visual Jasso Right eye Left eye Full Full Extraocular Movement Right eye Left eye Full, Ortho Full, Ortho Neuro/Psych Oriented x3: Yes Mood/Affect: Normal Dilation Both eyes: PAREMYD @ 8:57 Amsler Right eye Left eye Normal Normal Color Right eye Left eye AOPIP Stereo Circles: 50 secs Slit Lamp Exam Right eye Left eye Lids/Lashes Blepharitis Blepharitis Conjunctiva/Sclera no LG stain no LG stain Cornea no stain, TBUT 6secs no stain, T BUT 6secs Anterior Chamber Deep and quiet Deep and quiet Iris Round and reactive Round and deja ctive Lens Clear Clear Vitreous Vitreous syneresis Vitreous syne resis Fundus Exam Right eye Left eye Disc P&H, no heme, no ppa, P&H, no he me, no ppa, vertically oval C/D Ratio 0.2 0.2 Macula Normal Normal Vessels Normal Normal 78 lens used to examine the posterior pole Direct ophthalmoscope used: Spontaneous venous pulsations present in both eyes Wearing Rx Sphere Cylinder Kintyre Right eye +1.25 +2.50 92 Left eye -0.25 +0.25 98 Age: 5 yrs Type: SINGLE Manifest Refraction (Auto) Sphere Cylinder Kintyre Dist VA Right eye +1.25 +2.00 91 20/15 Left eye -1.25 +0.25 111 20/15 Care Teams Industrial Services Worker Relationship Specialty Start Date End Date Phyllis Vega MD [address] [place] [phone] PCP - General 03/24/09 04/12/17 documented as of this encounter
--- OUTSIDE RECORDS SUMMARY | 2024-06-10 13:56 | XMS_ITS | Encounter Summary ---
Author Organization [facility] Address [address] [place] [address] Care Team Providers Care Academic Support Center Director Name Role Phone Phyllis Vega MD Primary Care Provider [phone] Encounter Details Date Type Department Care Team (Late st Contact Info) Description 07/10/2010 Abstract [facility] Mood & Anxiety - [place] [address] [place] [address] Phyllis Vega MD [address] [place] [phone] Social History Tobacco Use Types Packs/Day Years [...] on filedocumented in this encounter Care Teams Academic Support Center Director Relationship Specialty Start Date End Date Phyllis Vega MD [address] [place] [phone] PCP - General 03/24/09 04/12/17 documented as of this encounter
--- OUTSIDE RECORDS SUMMARY | 2024-06-10 13:56 | XMS_ITS | Encounter Summary ---
Author Organization [facility] Address [address] [place] [address] Care Team Providers Care Thermospray Operator Name Role Phone Phyllis Vega MD Primary Care Provider [phone] Encounter Details Date Type Department Care Team (Latest Contact Info) Description 08/11/2015 8:09 EDT - 08/11/2015 23:59 EDT Hospital Encounter [address] [address] Unknown, Provider, Discharge Disposition: Home or Self Care Social [...] Code Departure Means Destination Home or Self Alf documented in this encounter Plan of Treatment Not on file documented as of this encounter Visit Diagnoses Not on filedocumented in this encounter Care Teams Thermospray Operator Relationship Specialty Start Date End Date Phyllis Vega MD [address] [place] [phone] PCP - General 03/24/09 04/12/17 documented as of this encounter
--- OUTSIDE RECORDS SUMMARY | 2024-06-10 13:56 | XMS_ITS | Encounter Summary ---
Author Organization [facility] Address [address] [place] [address] Care Team Providers Care Manager Completions Name Role Phone Phyllis Vega MD Primary Care Provider Encounter Details Date Type Department Care Team (Late st Contact Info) Description 06/06/2010 Results Only [facility] [phone] Giulia Denton MD [address] [place] [id number] Social History Tobacco Use Types Packs/Day Years [...] Date/Time Associated Diagnosis Comments SURGICAL PATHOLOGY Routine 06/06/2010 0:00 EDT documented in this encounter Results * SURGICAL PATHOLOGY (06/06/2010 0:00 EDT) Pathology Report: SURGICAL PATHOLOGY REPORT ? Reports generated via electronic interface contain original data; ? however they are lacking the format of the original report. ? Caution should be taken when reading/interpreti ng unformatted reports. ? Name: ? JA, ROXANNE V ? Accession #: ? [id number] ? : ? 1990 (Age: 20) ??F ? Collect Date: ? 06/06/2010 ? Location: ? [facility] ? Receive Date: ? 06/06/2010 ? Provider: GIULIA DENTON MD ? Copy to: PHYLLIS M PATNO MD ? Final Pathologic Diagnosis: ? Skin of eyelid, left upper, excision: ? - Fragments of hemangioma. ? Microscopic Description: ? Sections consist of a shave biopsy of skin, received in two fragments. ??The overlying epidermis shows effacement of the rete architecture. ??Within the ? dermis, are small nodules composed of small capillaries and ectatic blood ? vessels. ??The endothelial cells are generally small and reactive with no ? appreciable atypia. ??The surrounding stroma shows mild hyalinization. ??(. ? Dominique)/joslyn ? Document reviewed and electronically signed by: ? Desirae Fox MD ? Report ??Date: 06/08/2010 14:23 ? By the signature above, the attending physician certifies that he/she has ? personally conducted a gross and/or microscopic examination of the described ? specimens and rendered or confirmed the above diagnosis. ? Specimen(s) Received: ? Not listed ? Clinical History: ? Presented to clinic for chalazion eval. ??Has had bump on left upper lid for approximately 2 months. Thinks it has gotten larger recently. No itching, ?? pain, ulceration, drainage. ??Clinically, lesion measured approximately 2.0 mm in greatest dimension. ??Was elevated, firm & mobile under skin. ??Had a purple-red ?? color, but no unusual vasculature. ??Was initially cut centrally to see if could be drained, was not cystic, so lesion was removed in entirety. ? Gross Description: ? Received in formalin labelled [place], Roxanne and L upper eyelid ? lesion are two fragments of jameson-brown skin measuring 0.1 cm in greatest ? dimension and 0.4 x 0.1 x 0.1 cm. ??The specimens are submitted entirely in one ?? cassette. ??(Zeenat Alvarez)/mms ? End of Report ? JULIO C SHEPHERD 06/06/2010 06/06/2010 19: 44 EDT Giulia Denton MD PATHOLOGY ORDERABLES Performing Organization Address City/State/[facility] Co de Phone Number JULIO C SHEPHERD [address] [place] [address] documented in this encounter Visit Diagnoses Not on filedocumented in this encounter Care Teams Manager Completions Relationship Specialty Start Date End Date Phyllis Vega MD [address] [place] [phone] PCP - General 03/24/09 04/12/17 documented as of this encounter
--- OUTSIDE RECORDS SUMMARY | 2024-06-10 13:56 | XMS_ITS | Encounter Summary ---
Author Organization [facility] Address [address] [place] [address] Care Team Providers Care Director Product Name Role Phone Phyllis Vega MD Primary Care Provider [phone] Encounter Details Date Type Department Care Team (Late Contact Info) Description 08/11/2015 Results Only [facility] [phone] Ace Melgoza, [address] [place] [address] Social History Tobacco Use Types Packs/Day Years [...] Date/Time Associated Diagnosis Comments SURGICAL PATHOLOGY Routine 08/11/2015 17 :47 EDT documented in this encounter Results * SURGICAL PATHOLOGY (08/11/2015 17:47 EDT) Pathology Report: SURGICAL PATHOLOGY REPORT Reports generated via electronic interface contain original data; however they are lacking the format of the original report. Caution should be taken when reading/interpret ing unformatted reports. Name: ? HARMANReneeOsitoMARCELINO ROXANNE Ricci ? Accession #: ? [id number] ? : ? 1990 (Age: 25) ??F ? Collect Date: ? 08/11/2015 ? Location: ? [facility] ? Receive Date: ? 08/14/2015 ? Provider: ACE MELGOZA DO Copy to: LAVINIA LIU MD ? Final Pathologic Diagnosis: SKIN OF SHOULDER, RIGHT POSTERIOR, SHAVE BIOPSY: - Melanocytic nevus, intradermal type. ?? Microscopic Description: Sections are of a papule with mild epidermal hyperplasia and hyperkeratosis. There is a proliferation of melanocytes within the dermis. ??The proliferation consists of nests, cords, and strands that diminish in size with descent into the dermis. ??The melanocytes are slightly enlarged but generally have round-oval nuclei and a moderate amount of cytoplasm. ??The melanocytes show physical therapy aide maturation. ??(Dr. Sales)/n Document reviewed and electronically signed by: SHIRLEY SALES MD Report ??Date: 08/15/2015 15:16 By the signature above, the attending physician certifies that he/she has personally conducted a gross and/or microscopic examination of the described specimens and rendered or confirmed the above diagnosis. Specimen(s) Received: Right posterior shoulder Clinical History: Clinical diagnosis code: 239.2 Gross Description: ? Received in formalin labelled with proper patient identification (initials W, A) and right posterior shoulder is a shave biopsy of a jameson-brown granular macule (0.4 x 0.3 x 0.2 cm).). Bisected and submitted in 1. Shahida 08/14/2015 7:28 PM End of Report [facility] 08/11/2015 17:4 7 EDT 08/14/2015 17:47 EDT Ace Melgoza DO PATHOLOGY ORDER DALLIN [facility] [address] [place] [address] documented in this encounter Visit Diagnoses Not on filedocumented in this encounter Care Teams Director Product Relationship Specialty Start Date End Date Phyllis Vega MD [address] [place] [phone] PCP - General 03/24/09 04/12/17 documented as of this encounter
--- OUTSIDE RECORDS SUMMARY | 2024-06-10 13:56 | XMS_ITS | Encounter Summary ---
Author Organization [facility] Address [address] [place] [address] Care Team Providers Care Behavioral Science Chair Name Role Phone Phyllis Vega MD Primary Care Provider [phone] Encounter Details Date Type Department Care Team (Latest Contact Info) Description 05/08/2009 9:30 EDT - 05/08/2009 23:59 EDT Hospital Encounter [facility] - [address] [place] [address] Desirae Estrada, [facility] [address] [place] [address] Discharge Disposition: Home or Self Care Social History Tobacco Use Types Packs/Day Years Used Date Smoking Tobacco: Never Assessed Sex and Gender Information Value Date Recorded Sex Assigned at Not on file Gender Identity Not on file Sexual Orientation Not on file documented as of this encounter Discharge Disposition Disposition Code Departure Means Destination Home or Self Senior Care documented in this encounter Plan of Treatment Not on file documented as of this encounter Visit Diagnoses Not on filedocumented in this encounter Care Teams Behavioral Science Chair Relationship Specialty Start Date End Date Phyllis Vega MD [address] [place] [phone] PCP - General 03/24/09 04/12/17 documented as of this encounter
--- OUTSIDE RECORDS SUMMARY | 2024-06-10 13:56 | XMS_ITS | Encounter Summary ---
Author Organization [facility] Address [address] [place] [address] Care Team Providers Care Telecommunications Cable Jointer Name Role Phone Phyllis Vega MD Primary Care Provider [phone] Reason for Visit * Reason Comments Follow-up MRI follow up. [facility]. Pt states less floaters, flashes and blue lights since last visit. No headaches. No eyepain. Floaters on going the same. Encounter Details Date Type Department Care Team (Late st Contact Info) Description 01/27/2012 10:00 EST Office Visit [facility] Ophthalmology - [address] [phone] Daljit Dyer MD [address] [facility], [address] [place] [address] Social History Tobacco Use Types [...] Progress Notes * Daljit Dyer MD - 01/28/2012 0811 EST [facility] January 27, 2012 Kimberlee Samson MD [address] [place] [address] Dear Jossy: This is to refer a patient both for your long-term care as well as some information regarding Roxanne Beltran. Specifically, she has had persistence of flashing lights. These are blue flashing lights. Also, she has a history of migraines. Her examination has been quite unremarkable. She has had benefit of neuroimaging. Specifically, herMRI is absolutely normal. The ophthalmic exam itself reveals 20/20 vision in each eye, normal color vision in each eye and normal pupils. The optic nerves themselves are pink and healthy as well. I have not identified any significant pathology. I will see her if there is any change or concern. Obviously, if she notices any persistence or increasing flashing lights or other change, then I should see her sooner. I have enclosed a copy of my note from 12/24/11. I know she will appreciate the excellent care that you always deliver. Sincerely, Electronically Signed by Daljit Dyer MD 01/29/2012 18:29 [facility] - Daljit Dyer MD - Job ID: SM Doc ID: [id number] Ext Doc ID: [id number] cc: Jossy Atkins MD * Daljit Dyer MD - 01/27/2012 1230 EST . Base Ophthalmology Exam Visual Acuity Right Left Both Dist cc 20/20 20/20 Method: Snellen - Linear Comments: Pt forgot glasses, used phoropter, with glasses RX Wearing Rx Sphere Cylinder [place]heens Right +0.75 +3.00 095 Left -0.25 +0.25 100 Type: Reading Wearing Rx #2 Sphere Cylinder Gheens Right +1.25 +2.50 91 Left -0.25 +0.25 96 Type: SVL IMP: There are no diagnoses linked to this encounter. PLAN: I am scribing for Daljit Dyer MD while he is personally performing the service. VALENTINO Boykin (Scribe) documented in this encounter Miscellaneous Notes * Scanned Note-Null - STITCHER AROUND, SCAN 2 - 01/30/2012 1124 EST documented in this encounter Plan of Treatment Not on file documented as of this encounter Visit Diagnoses Diagnosis Ocular migraine- Primary Variants of migraine, not elsewhere classified, without mention of intractable migraine without mention of status migrainosus Blepharitis, both eyes Blepharitis, unspecified Myopia Vitreous syneresis Other vitreous opacities Unspecified chorioretinal scar Chorioretinal scar, unspecified documented in this encounter Eye Exam Visual Acuity (Snellen - Linear) Right eye Left eye Dist cc 20/20 20/20 Pt forgot glasses, used phoropter, with glasses RX Wearing Rx #1 Sphere Cylinder Gheens Right eye +0.75 +3.00 095 Left eye -0.25 +0.25 100 Type: Reading Wearing Rx #2 Sphere Cylinder Gheens Right eye +1.25 +2.50 91 Left eye -0.25 +0.25 96 Type: SVL Care Teams Telecommunications Cable Jointer Relationship Specialty Start Date End Date Phyllis Vega MD [address] [place] [phone] PCP - General 03/24/09 04/12/17 documented as of this encounter
--- OUTSIDE RECORDS SUMMARY | 2024-06-10 13:56 | XMS_ITS | Encounter Summary ---
Author Organization [facility] Address [address] [place] [address] Care Team Providers Care Family Mediator Name Role Phone Phyllis Vega MD Primary Care Provider [phone] Reason for Visit * Reason Comments Emesis pt throwing up and d iarrhea x 2 hours Encounter Details Date Type Department Care Team (Late st Contact Info) Description 02/16/2010 1:08 EDT - 02/16/2010 3:13 EDT Emergency [facility] Emergency Department - Main [place] [address] [place] [id number] Isidoro Faria [place] [facility] [place] [address] Emergency, [place], Viral gastroenteritis Discharge Disposition: Home or Self Care Social [...] Sign Reading Time Taken Comments Blood Pressure 100/56 02/16/2010 0113 EDT Pulse 89 02/16/2010 0113 EDT Temperature 36.1 ??C (97 ??F) 02/16/2010 0113 EDT Respiratory Rate 16 02/16/2010 0113 EDT Oxygen Saturation 100% 02/16/2010 0113 EDT Inhaled Oxygen Concentration - - Weight - - Height - - Body Mass Index - - documented in this encounter Discharge Instructions * Discharge Instructions* Dania Alvarado MD - 02/16/2010 2:57 EDT Images from the original note were not included. [facility] Patient Instructions Gastroenteritis: After Your Visit Your Care Instructions Gastroenteritis is an illness that causes nausea and may cause vomiting and diarrhea. It is sometimes called stomach flu. It can be caused by bacteria or a virus. You will probably begin to feel better in 1 to 2 days. In the meantime, get plenty of rest and makesure you do not become dehydrated. Dehydration occurs when your body loses too much fluid. Follow-up care is a arroyo part of your treatment and safety. Be sure to make and go to all appointments, and call your doctor if you are having problems. It???s also a good idea to know your test results and keep a list of the medicines you take. How can you care for yourself at home? ?? If your doctor prescribed antibiotics, take them as directed. Do not stop taking them just because you feel better. You need to take the full course of antibiotics. Drink plenty of fluids to prevent dehydration, enough so that your urine is light yellow or clear like water. Choose water and other caffeine-free clear liquids until you feel better. If you have kidney, heart, or liver disease and have to limit fluids, talk with your doctor before you increase your fluid intake. Drink fluids slowly, in frequent, small amounts, because drinking too much too fast can cause vomiting. Begin eating mild foods, such as dry toast, yogurt, applesauce, bananas, and rice. Avoid spicy, hot, or high-fat foods, and do not drink alcohol or caffeine for a day or two. Do not drink milk or eatice cream until you are feeling better. How to prevent gastroenteritis ?? Keep hot foods hot and cold foods cold. Do not eat meats, dressings, salads, or other foods that have been kept at room temperature for more than 2 hours. Use a thermometer to check your refrigerator. It should be between 34??F and 40??F. Defrost meats in the refrigerator or microwave, not on the kitchen counter. Keep your hands and your kitchen clean. Wash your hands, cutting boards, and countertops with hot soapy water frequently. Cook meat until it is well done. Do not eat raw eggs or uncooked sauces made with raw eggs. Do not take chances. If food looks or tastes spoiled, throw it out. When should you call for help? Call 911 anytime you think you may need emergency care. For example, call if: ?? You vomit blood or what looks like coffee grounds. You passed out (lost consciousness). You pass maroon or very bloody stools. Call your doctor now or seek immediate medical care if: ?? You have severe belly pain. You have signs of needing more fluids. You have sunken eyes, a dry mouth, and pass only a little dark urine. You feel like you are going to faint. You have increased belly pain that does not go away in 1 to 2 days. You have new or increased nausea, or you are vomiting. You have a new or higher fever. Your stools are black and tarlike or have streaks of blood. Watch closely for changes in your health, and be sure to contact your doctor if: ?? You are dizzy or lightheaded. You urinate less than usual, or your urine is dark yellow or brown. You do not feel better with each day that goes by. Where can you learn more? Go to www.StudyBlue.net/fahc Enter N142 in the search box to learn more about Gastroenteritis: After Your Visit. ?? 2005 - 2008 [employer]. Care instructions adapted under license by [facility], [facility] . This care instruction is for use with your licensed healthcare professional. If you have questions about a medical condition or this instruction, always ask your healthcare professional. [employer] disclaims any warranty or liability for your use of this information. documented in this encounter Medications at Time [...] 02/16/2010 04/12/2011 documented as of this encounter Ordered Prescriptions Prescription Sig Dispensed Refills Start Date End Da te ondansetron (ZOFRAN) 4 mg tablet Take 1 Tab by mouth every 8 hours as needed for Nausea. 20 Tab 0 02/16/2010 04/12/2011 documented in this encounter Discharge Disposition Disposition Code Departure Means Destination Home or Self Care documented in this encounter ED Notes * Isidoro Faria MD - 02/16/2010 0255 EDT DOS: 02/16/2010 Chief Complaint Patient presents with ??? Emesis pt throwing up and diarrhea x 2 hours The patient is a 19 y.o. female who presents today with Emesis The history is provided by the patient. Emesis This is a new problem. The current episode started 3 to 5 hours ago. The problem occurs 2 to 4 times per day. The problem has not changed since onset. There has been no fever. Associated symptoms include diarrhea. Pertinent negatives include no fever and no abdominal pain. Review of Systems Constitutional: Negative for fever. Gastrointestinal: Positive for vomiting and diarrhea. Negative for abdominal pain. All other systems reviewed and are negative. No past medical history on file. No past surgical history on file. No Known Allergies History Substance Use Topics ??? Tobacco Use: Never ??? Alcohol Use: No No family history on file. BP 100/56 Pulse 89 Temp(Src) 36.1 ??C (97 ??F) (Tympanic) Resp 16 SpO2 100% Physical Exam Nursing note and vitals reviewed. Abdominal: Soft. Bowel sounds are normal. No tenderness. She has no rebound and no guarding. Radiology orders: None Procedures ED Course: Iv fluids zofran with relief I performed a history and exam of Roxanne Ricci Shemaralex and discussed the case with the resident. I reviewed this individual's note and I concur with the documented findings and plan of care. Discharge Prescriptions New Prescriptions ONDANSETRON (ZOFRAN) 4 MG TABLET Take 1 Tab by mouth every 8 hours as needed for Nausea. MDM Number of Diagnoses and Management Options Viral gastroenteritis: General comments: 3 Encounter Diagnoses Code Name Primary? Qualifier ??? 008.8V Viral gastroenteritis PCP: Phyllis Vega MD 02/16/2010 2:58 AM documented in this encounter Miscellaneous Notes * Scanned Note-Null - Inpatient, Physician - 02/18/2010 1126 EDT * ED Resident - Dania Alvarado MD - 02/16/2010 0149 EDT DOS: 02/16/2010 Chief Complaint Patient presents with ??? Emesis pt throwing up and diarrhea x 2 hours The patient is a 19 y.o. female who presents today with Emesis The history is provided by the patient. Emesis This is a new problem. The current episode started 1 to 2 hours ago. The vomit appears to be stomach contents. There has been no fever. Associated symptoms include diarrhea and headaches. Pertinent negatives include no chills, no fever, no sweats and no abdominal pain. Patient presents with 2 hours of nausea with recurrent emesis and diarrhea. Emesis and diarrhea have been non-bloody, but she thinks there may have been some blood on the toilet paper the last episode that she had. She has a history of irritable bowel syndrome, but she explains that this feels different. She reports feeling tired and weak. Denies fever, chills or abdominal pain. No known sick contacts. No recent travel. No known ingestion of any suspicious food. Review of Systems Constitutional: Negative for fever and chills. Eyes: Negative. Respiratory: Negative. Cardiovascular: Negative. Gastrointestinal: Positive for nausea, vomiting and diarrhea. Negative for abdominal pain, constipation and blood in stool. Genitourinary: Negative. Negative for dysuria, urgency, hematuria and menstrual problem (LMP 2 daysago). Musculoskeletal: Negative. Skin: Positive for pallor. Negative for rash. Neurological: Positive for weakness and headaches. Negative for dizziness, tremors, syncope and light-headedness. Hematological: Negative. Psychiatric/Behavioral: Negative. No past medical history on file. No past surgical history on file. No Known Allergies History Substance Use Topics ??? Tobacco Use: Never ??? Alcohol Use: No No family history on file. BP 100/56 Pulse 89 Temp(Src) 36.1 ??C (97 ??F) (Tympanic) Resp 16 SpO2 100% Physical Exam Constitutional: She is oriented. She appears not diaphoretic. No distress. HENT: Head: Normocephalic and atraumatic. Eyes: Conjunctivae and extraocular motions are normal. Pupils are equal, round, and reactive to light. Neck: Normal range of motion. Neck supple. Cardiovascular: Normal rate, regular rhythm, normal heart sounds and intact distal pulses. No murmur heard. Pulmonary/Chest: Effort normal and breath sounds normal. No respiratory distress. Abdominal: Soft. Bowel sounds are normal. She exhibits no distension and no mass. No tenderness. She has no rebound and no guarding. Musculoskeletal: Normal range of motion. She exhibits no edema and no tenderness. Neurological: She is alert and oriented. She has normal reflexes. No cranial nerve deficit. She exhibits normal muscle tone. Coordination normal. Skin: Skin is warm and dry. No rash noted. She is not diaphoretic. No erythema. No pallor. Radiology orders: None Procedures ED Course: Patient seen and evaluated. Given IV fluids and Zofran for nausea. [place] better and discharged home. Discharge Prescriptions New Prescriptions ONDANSETRON (ZOFRAN) 4 MG TABLET Take 1 Tab by mouth every 8 hours as needed for Nausea. MDM Encounter Diagnoses Code Name Primary? Qualifier ??? 008.8V Viral gastroenteritis PCP: Phyllis Vega MD 02/16/2010 2:59 AM documented in this encounter Plan of Treatment Not on file documented as of this encounter Visit Diagnoses Diagnosis Viral gastroenteritis Intestinal infection due to other organism, not elsewhere classified documented in this encounter Administered Medications Inactive Administered Medications - up to 3 most recent administrations Medication Order MAR Action Action Date Dose Rate Site ondansetron (PF) (ZOFRAN) 4 mg/2 mL injection 4 mg 4 mg, intravenous, NOW X1, 1 dose, On Fri02/16/10 at 0200, STAT Given 02/16/2010 1:51 EDT 4 mg sodium chloride 0.9 % 1,000 mL BOLUS 1,000 mL, intravenous, Once (Without Time Specified), 1 dose, Starting on Fri02/16/10 at 0145, Until Fri02/16/10 at 0149, STAT Given 02/16/2010 1:49 EDT 1,000 mL documented in this encounter Historical Medications * This list may reflect changes made after this encounter. Medication Sig Dispensed Refills Start Date End Date omeprazole (PRILOSEC) 20 mg capsule Take 20 mg by mouth daily. 04/13/2017 citalopram (CELEXA) 20 mg tablet Take 20 mg by mouth daily. 04/13/2017 added in this encounter Active and Recently Administered Medications Times are shown in EDT. Scheduled Medication Order 02/14/2010 02/15/2010 02/16/2010 ondansetron (PF) (ZOFRAN) 4 mg/2 mL injection 4 mg (COMPLETED) 4 mg, intravenous, NOW X1, 1 dose, On Fri02/16/10 at 0200, STAT 0151 (Given - Provid er: Laura Arizmendi) sodium chloride 0.9 % 1,000 mL BOLUS (COMPLETED) 1,000 mL, intravenous, Once (Without Time Specified), 1 dose, Starting on Fri02/16/10 at 0145, Until Fri02/16/10 at 0149, STAT 0149 (Given - Provid er: Agnes Mckeon) documented in this encounter Orders Medications Ordered That Francis ht Not Have Been Administered Count Last Ordered Date First Ordered Date ondansetron (ZOFRAN-ODT) 4 m g disintegrating tablet 1 02/16/2010 documented in this encounter Care Teams Family Mediator Relationship Specialty Start Date End Date Phyllis Vega MD [address] [place] [id number] PCP - General 03/24/09 04/12/17 documented as of this encounter
--- OUTSIDE RECORDS SUMMARY | 2024-06-10 13:56 | XMS_ITS | Encounter Summary ---
Author Organization [facility] Address [address] [place] [address] Care Team Providers Care Acreage Reporter Name Role Phone Phyllis Vega MD Primary Care Provider [phone] Encounter Details Date Type Department Care Team (Late Contact Info) Description 2009 Office Visit [facility] [place] [facility] [address] [place] [address] Student, T System [facility] Social History Tobacco Use Types Packs/Day Years Used Date Smoking Tobacco: Never Assessed Sex and Gender Information Value Date Recorded Sex Assigned at Not on file Gender Identity Not on file Sexual Orientation Not on file documented as of this encounter Progress Notes * Eliel, Conv Staff Nurse [facility] Resource Team - 03/10/2010 2660 EDT Care Center - Physician Summary Registration Date/Time: 2009 10:57 Arrived- By private vehicle. Historian- patient. HISTORY OF PRESENT ILLNESS Chief complaint- DYSPNEA. This started several weeks ago and is still present (worse this morning than past several days but resolved at time of exam.). The dyspnea is described as mild (SOB is described as inability to take in a full breath whith a feeling of tightness around the lower area of the chest B/L (no pain). Pt has not had fast breathing, chest pain or palpitations. there has been nosyncope, near syncope, cyanosis, numbness or tingling associated.). She has had anxiety. The patient has had dizziness (mild lightheadedness intermittently, pt unsure if related to feelings of breathlessness). No cough, sputum production, fever, sweating episodes or wheezing. No chills, chest pain or discomfort, calf pain or foot swelling. No tingling, numbness or palpitations. ( Pt reports that she has hadanxiety in the past, that she has been under increased stress lately, but states that her anxiety has never caused a feeling of breathlessness before. She has seen a counselor for this problem, but has not seen a counselor recently as she saw someone through her school that did not work out.). REVIEW OF SYSTEMS The patient has not had weight loss. No muscle aches, sore throat, nasal discharge, sinus drainage or nausea.No vomiting, abdominal pain, headache, skin rash or enlarged lymph nodes. PAST HISTORY GERD. No history of asthma (pt denies history of athma but states that she had used an inhaler onceor twice when she was sick as a child.). Medications: The patient's medications have been reviewed (prilsec, nuva-ring). Allergies: The patient's allergies have been reviewed. SOCIAL HISTORY Occasional alcohol use. Nonsmoker. FAMILY HISTORY mother with asthma, father with irregular heart beat. ADDITIONAL NOTES The nursing notes have been reviewed. PHYSICAL EXAM Appearance: Alert. No acute distress. Vital Signs: Have been reviewed (BP: 130 / 60 sitting R arm manual. HR: 58 regular. RR: 16 regular (unlabored). Temp: 99 (temporal) O2 saturation: 100% room air.). Eyes: Pupils equal, round and reactive to light. Eyes normal inspection. ENT: Ears normal. Nose normal. Pharynx normal. Neck: Normal inspection. No jugular venous distention. CVS: Normal heart rate and rhythm. Heart sounds normal. Respiratory: No respiratory distress. Breath sounds normal. Abdomen: Abdomen soft and nontender. No organomegaly. Skin: Normal skin color. Skin warm and dry. No rash. No cyanosis or diaphoresis. Extremities: Extremities exhibit normal ROM. No lower extremity edema. Neuro: Oriented X 3. No motor deficit. No sensory deficit. Reflexes normal. LABS, X-RAYS, AND EKG EKG: Normal sinus rhythm. Rate: 60. Normal P waves. Normal CHASE. Normal ST and T waves. RSR' seen inV1 and V2 , QTc: 392. Prior EKG unavailable. The study has been interpreted contemporaneously by me. Chest X-ray: No acute disease. Views: lateral. The X-rays were independently viewed by me and interpreted by the radiologist. Coagulation Studies: D-dimer 0.25. PROGRESS AND PROCEDURES E.D. Course: PT continued to be breathing comfortably and was symptom free at time of discharge.. ED Attending on duty and available for supervision: Deedee Montes De Oca. Disposition: Condition: stable. Discharged home. CLINICAL IMPRESSION Anxiety reaction. Dyspnea. INSTRUCTIONS Warnings: GENERAL WARNINGS: Return to the Emergency Department or contact your physician immediately if your condition worsens or changes unexpectedly, if not improving as expected, or if other problems arise.SPECIFICALLY, return if you develop chest pain, fever, difficulty breathing, excessive fatigue, a fluttering sensation in the chest or fainting. Prescription Medications: Xanax 0.25 mg: Take 1 orally every 8 hours as needed for anxiety. Dispense fifteen (15). No refills. Generic substitute OK. Follow-up: ROXY LANE MD, Psych, , FA, [address] [place] [address], [facility]. Follow up in about one week. Call for an appointment. (Electronically signed by Laura Flores, 2009 15:27) Care Center - Nursing Summary Registration Date/Time: 2009 10:57 TRIAGE Initial Assessment O2 saturation: 100% room air. --1131 Julianmika Flannery, R.N. (Pt in NAD. Able to speak in full sentances.). --1131 Julian Levton, R.N. BP: 130 / 60 sitting R arm manual. HR: 58 regular. RR: 16 regular (unlabored). Temp: 99 (temporal).--1141 Julianmika Flannery, R.N.. Medications (nuvo-ring BCP). Prilosec: 10 mg daily. --1141 Julianmika Oharaton, R.N.. Allergies No known drug allergies. --1141 Julian Mayankimpton, R.N.. History Chief Complaint: SHORTNESS OF BREATH and (anxiety). This is a recurrent problem (3 weeks ago). Pain level now: 0/10. The patient has had a mild cough. (Feelslike she can't take a deep enough breath). Treatment REGULATORY LAW SPECIALIST: None. PAST HX: Immunizations: up-to-date. Last normal menstrual period was 2 weeks ago. (GERD). SOCIAL HX:Occasional alcohol use. Nonsmoker. No report of abuse. Arrived by private vehicle and accompanied by friend. Historian: patient. --1141 Luis Alberto Flannery R.N.. NURSING PROGRESS NOTES Two patient identifiers checked. 12-lead EKG was ordered, performed by a nurse and shown to the PA.--1314 Luis Alberto Flannery R.N. Two patient identifiers checked. Blood samples drawn with Vacutainer and butterfly by nurse per protocol and sent to lab: [facility]. --1440 Luis Alberto Flannery R.N.. DISPOSITION / DISCHARGE Condition at departure: unchanged. Patient reports pain level on departure as 0/10. No learning barriers present. Discharge instructions reviewed with the patient. Reviewed medication side effects, precautions, dosing and course; prescription (s) given to the patient. Patient verbalized understanding. Written instructions provided in Togolese. The patient was discharged home. The patient left the Emergency Department ambulatory and via private vehicle. Patient driving. --1525 Luis Alberto Flannery R.N.. Locked/Released at 2009 15:25 by Luis Alberto Flannery R.N. documented in this encounter Plan of Treatment Not on file documented as of this encounter Visit Diagnoses Not on filedocumented in this encounter Care Teams Acreage Reporter Relationship Specialty Start Date End Date Phyllis Vega MD [address] [place] [phone] PCP - General 03/24/09 04/12/17 documented as of this encounter
--- OUTSIDE RECORDS SUMMARY | 2024-06-10 13:56 | XMS_ITS | Encounter Summary ---
Author Organization [facility] Address [address] [place] [address] Care Team Providers Care Blanket Binder Name Role Phone Phyllis Vega MD Primary Care Provider [phone] Encounter Details Date Type Department Care Team ([facility] Contact Info) Description 06/07/2011 Abstract Used for ABSTRACTING Data [phone] Daljit Dyer MD [address] [facility], [facility] [address] [place] [phone] Social History Tobacco Use Types [...] on filedocumented in this encounter Care Teams Blanket Binder Relationship Specialty Start Date End Date Phyllis Vega MD [address] [place] [phone] PCP - General 03/24/09 04/12/17 documented as of this encounter
--- OUTSIDE RECORDS SUMMARY | 2024-06-10 13:56 | XMS_ITS | Encounter Summary ---
Author Organization [facility] Address [address] [place] [address] Care Team Providers Care Tester Waste Disposal Leakage Name Role Phone Phyllis Vega MD Primary Care Provider [phone] Reason for Visit * Reason Comments Eye Problem Patient states blue spots in vision. Patient thinks left eye, but not positive. Increased frequency with fatigue, but other times as well. Denies headache, itch, burn, or tearing. Occasional floaters. Encounter Details Date Type Department Care Team (Late st Contact Info) Description 10/30/2011 11:00 EST Office Visit [facility] Ophthalmology - [address] [address] Daljit Dyer MD [address] [facility] [address] [place] [address] Social History Tobacco Use Types [...] Progress Notes * Daljit Dyer MD - 10/30/2011 1306 EST This note has been dictated and scanned. I saw and examined the patient with the scribe. I agree with the findings documented in the scribes note. . Base Ophthalmology Exam Visual Acuity Right Left Both Dist sc 20/70 -+ Dist cc 20/20 20/20 Near cc J1+ J1+ Method: Snellen - Linear Tonometry Right Left Pressure 10 10 Method: Applanation Time: 11:45 Wearing Rx Sphere Cylinder Woburn Right +0.75 +3.00 095 Left -0.25 +0.25 100 Age: 4yrs Type: Reading Comments: Patient states using glasses mainly for reading. Stereo Fly: + Lan src. 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 Base Ophthalmology Exam Addl. Tests Amsler Right Left Amsler Normal Normal Main Ophthalmology Exam Slit Lamp Exam Right Left Lids/Lashes Rosacea Rosacea Conjunctiva/Sclera No LG Stain No LG Stain Cornea No Stain, TBUT6 No Stain, TBUT5 Anterior Chamber Deep and quiet Deep and quiet Iris No TI No TI Neuro/Psych Oriented x3: Yes Mood/Affect: Normal Cornea examined, all 5 layers. ROS, Medications, Allergies reviewed. CVF, Pupil check and EOM's rechecked to include versions & ductions. Lids, lashes, lacrimal and orbit examined. All normal unless otherwise noted. This note has been scanned. 78D , 20D , Indirect and direct were used for the posterior exam. IMP: Roxanne was seen today for eye problem. Diagnoses and associated orders for this visit: Ocular migraine Blepharitis, both eyes Myopia Vitreous syneresis Unspecified chorioretinal scar Other Orders - ibuprofen 200 mg Cap; Take 200 mg by mouth daily as needed. - Multivitamins with Minerals Tab; Take 1 Tab by mouth daily. No cause identified for blue flashing lights. Patient to call if change. PLAN: Test Performed: [facility] 24-2 Indications for test: photopsias/ocular migraine Results/Findings: WNL Plan: FU prn. documented in this encounter Miscellaneous Notes * Scanned Note-Null - Oil Recovery Operator, Scan - 10/30/2011 1513 EST documented in this encounter Plan of Treatment Not on file documented as of this encounter Visit Diagnoses Diagnosis Ocular migraine- Primary Variants of migraine, not elsewhere classified, without mention of intractable migraine without mention of status migrainosus Blepharitis, both eyes Blepharitis, unspecified Myopia Vitreous syneresis Other vitreous opacities Unspecified chorioretinal scar Chorioretinal scar, unspecified documented in this encounter Historical Medications * This list may reflect changes made after this encounter. Medication Sig Dispensed Refills Start Date End Date Multivitamins with Minerals Tab Take 1 Tab by mouth daily. 04/13/2017 ibuprofen 200 mg Cap Take 200 mg by mouth daily as needed. 04/13/2017 added in this encounter Eye Exam Visual Acuity (Snellen - Linear) Right eye Left eye Dist sc 20/70 -+ Dist cc 20/20 20/20 Near cc J1+ J1+ Tonometry (Applanation, 11:45) Right eye Left eye Pressure 10 10 Pupils Pupils Dark Light React APD Right eye PERRL 5 2 Brisk None Left eye PERRL 5 2 Brisk None Visual Reardon Right eye Left eye Full Full Extraocular Movement Right eye Left eye Full Full 3 Prism diopter exophoria at distance in primary gaze with current correction. Neuro/Psych Oriented x3: Yes Mood/Affect: Normal Dilation Both eyes: Paremyd @ 12:30 Amsler Right eye Left eye Normal Normal Color Right eye Left eye AO PIP Stereo Fly: + Circles: 9 Lan src. Slit Lamp Exam Right eye Left eye Lids/Lashes Rosacea Rosacea Conjunctiva/Sclera No LG Stain No LG Stain Cornea No Stain, TBUT6 No Stain, TBUT5 Anterior Chamber Deep and quiet Deep and quiet Iris No TI No TI Wearing Rx Sphere Cylinder Woburn Right eye +0.75 +3.00 095 Left eye -0.25 +0.25 100 Age: 4yrs Type: Reading Patient states using glasses mainly for reading. Care Teams Tester Waste Disposal Leakage Relationship Specialty Start Date End Date Phyllis Vega MD [address] [place] [phone] PCP - General 03/24/09 04/12/17 documented as of this encounter
--- OUTSIDE RECORDS SUMMARY | 2024-06-10 13:56 | XMS_ITS | Encounter Summary ---
Author Organization [facility] Address [address] [place] [address] Care Team Providers Care Chief Service Dispatcher Name Role Phone Phyllis Vega MD Primary Care Provider [phone] Encounter Details Date Type Department Care Team ([facility] Contact Info) Description 04/10/2011 Abstract Used for ABSTRACTING Data [phone] Terry Sal MD [address] [facility], [facility] [address] [place] [address] Social History Tobacco Use Types [...] filedocumented in this encounter Care Teams Chief Service Dispatcher Relationship Specialty Start Date End Date Phyllis Vega MD [address] [place] [phone] PCP - General 03/24/09 04/12/17 documented as of this encounter
--- OUTSIDE RECORDS SUMMARY | 2024-06-10 13:56 | XMS_ITS | Encounter Summary ---
Author Organization [facility] Address [address] [place] [address] Care Team Providers Care Diamond Sorter Name Role Phone Rita Quiroga MD Primary Care Provider Encounter Details Date Type Department Care Team (Late st Contact Info) Description 04/16/2017 9:40 EDT Initial consult [facility] Women's Services - [address] [id number] Jenifer Baker MD [address] [place] [address], [address] [place] [address] Aracely Zuleta MD Tubal without intrauterine (Primary Dx); Mechanical breakdown of intrauterine contraceptive device, subsequent encounter Discharge Disposition: Auto Discharge Social History Tobacco [...] Sign Reading Time Taken Comments Blood Pressure 98/68 04/16/2017 1003 EDT Pulse - - Temperature - - Respiratory Rate - - Oxygen Saturation - - Inhaled Oxygen Concentration - - Weight 53.5 kg (118 lb) 04/16/2017 1003 EDT Height 157.5 cm (5' 2) 04/16/2017 1003 EDT Body Mass Index 21.58 04/16/2017 1003 EDT documented in this encounter Discharge Diagnoses Diagnosis O00.10 Tubal without intrauterine -O00.10[ICD-10-CM] T83.31XD Breakdown (mechanical) of intrauterine contraceptive device, subsequent encounter-T83.31XD[ICD-10-CM] documented in this encounter Discharge Disposition Disposition Code Departure Means Destination Auto Discharge documented in this encounter Progress Notes * Jenifer Baker MD - 04/16/2017 0926 EDT CC: Consult request by [facility] for with IUD s/p removal and retention of arm, inappropriately rising HCGs HPI: Roxanne Beltran is a 27 y.o. who presents from [facility] after recently following with them for positive test in the setting of IUD in situ. The patient had a Paragard IUD placed approximately 7 years ago and has not had any problems with it until this time. Her LMP was 03/28/2017 and then about 1 week ago she developed some light bleeding and suprapubic cramping that then migrated to her left side. The IUD was removed at [facility], however upon removal was noted to be missing an arm of the IUD and concerned that it was left in situ. She had a positive UPT earlier this week and had serial HCG's which were 267 and then 48 hours later increased to 287. She was seen in the ED on 04/13 and an U/S revealed IUD arm in lower uterine segment, no IUP and normal appearing ovaries with likely left corpus luteum cyst. After the patient's second HCG was found bhumi rising inappropriately, she was referred here for definitive management of of unknown location and retained IUD arm. ROS: Pertinent items are noted in HPI. [...] AB SAB TAB Ectopic Multiple Living 1 # Outcome Date GA Lbr Eric/2nd Weight Sex Delivery Anes PTL Lv 1 Current Menses: Reg Cervical cancer screening: UTD per patient report STI's: Denies Sexual activity: Yes, monogamous male partner Contraception: Copper IUD s/p partial removal Social History Family History Social History Substance Use Topics ??? Smoking status: Never Smoker ??? Smokeless tobacco: None ??? Alcohol use Yes Comment: 5 to [...] 150 mg by mouth 2 times daily. Current Facility-Administered Medications Medication Route Frequency ??? methotrexate chemo syringe 76.5 mg intramuscular Now No Known Allergies Objective: Ht 157.5 cm (62) Wt 53.5 kg (118 lb) BMI 21.58 kg/m2 GEN: No acute distress Psych: Appropriate affect, alert and oriented to person, place and time Skin: Normal temperature and texture, no rashes or lesions HEENT: Normocephalic, atraumatic, sclera anicteric, oropharynx clear with moist mucous membranes Neck: Trachea midline, full range of motion, no thyromegaly PULM: normal respiratory effort ABD: Soft, non-tender, non-distended, no masses or hepatosplenomegaly Pelvic exam: Normal appearing external genitalia without masses, tenderness or lesions. Normal appearing urethral meatus without masses or prolapse. Speculum exam reveals normal appearing vagina withnormal color and discharge, no lesions. Normal appearing cervix without discharge or lesions. EXT: Warm, well perfused, no edema TVUS - Please see final report but findings c/w ectopic and retained IUD arm in FRANKIE WBC/Hgb/Hct/Plts: 7.89/11.8/35.6/287 (04/16 837) BUN/Cr/glu/ALT/AST/amyl/lip: 8/0.61/--/20/18/--/-- (04/16 837) Rh neg s/p Rhogam at [facility] HCGs 04/13/2017: HCG 267 mIU/ml* (Ref range: <5 mIU/ml) 04/15/2017: HCG 287 mIU/ml* (Ref range: <5 mIU/ml) 04/16/2017: HCG 317 mIU/ml* (Ref range: <5 mIU/ml) Assessment/Plan: Roxanne Beltran is a 27 y.o. who presents with ectopic and retained IUD arm. 1. Tubal without intrauterine We discussed the etiology, time course and potential complications of ectopic . Next, we discussed the potential management options including expectant, medical (methotrexate) and surgical (laparoscopy) treatment. We briefly discussed the pros/cons of each approach and patient has been doing some reading in the past few days and understands well the differences and benefits of each approach. Given her low HCG levels and hemodynamic stability and ability to follow-up, the patient is an appropriate candidate for methotrexate today. She is interested in avoiding surgery if possible but wants to do something to resolve this issue and declines expectant management, which is certainly quite reasonable. We discussed the mechanism of action, potential side effects and what to expect with methotrexate. We also discussed the need for additional monitoring with HCG levels on Day 4 and 7 and tehn weekly thereafter to ensure resolution of the . The patient understands and agrees and was able tohave all of her questions answered to the best of our ability. We discussed activity limitations and signs/symptoms to watch for and she was given our emergency numbers for any problems or issues. She is agreeable to HCG follow-up as needed and we will proceed with Methotrexate today, her labs werereviewed by me personally and are normal. She will return to clinic shortly for the MTX injection and will receive further teaching and handouts from our nursing staff at that time as well. 2. Mechanical breakdown of intrauterine contraceptive device, subsequent encounter We discussed the recommendation to remove the IUD fragment and offered attempting removal in the office today under ultrasound guidance versus going to the OR for hysteroscopic removal. The patient is agreeable to trying today, we discussed potential risks of infection, bleeding and inability to remove. She also understands the option for paracervical block if needed for pain relief but will try without to start. All questions answered, see separate procedure note. Jenifer Baker MD * Leni Delgado RN - 04/16/2017 0987 EDT I. Patient here for Methotrexate Injection for right tubal . Med given in equal, divided doses IM in right and left gluteus II. Patient education: Topic: Ectopic Treatment with Methotrexate Patient Handout- copy given to pt and additional copy placed in scans Method: Handout and verbal Taught to: Patient and partner Barriers: None Outcomes: independent III. I was supervised by Dr. Baker who was present and immediately available in the office suite. Leni Delgado RN 04/16/2017 11:44 Pt is aware of her diagnosis and as been counseled on her options by Dr. Baker. Roxanne desires to proceed with methotrexate injection today. All labs have been reviewed by Dr. Baker, verbal order given to proceed with methotrexate injection. Roxanne will present to the lab for HCG monitoring on Day 4 and 7 and then weekly thereafter to ensure resolution of the . She is aware of activity limitations and signs/symptoms to watch for. Provided LIAISON INSPECTION LABORATORY ASSISTANT triage and on-call numbers, aware to call with any problems, issues or additional questions. Roxanne verbalized understand and agreement to this plan. She has no other questions at this time. documented in this encounter Procedure Notes * Jenifer Baker MD - 04/16/2017 0993 EDT Procedure: Procedures Procedure Note: IUD Arm Removal Verbal informed consent obtained, risks and possible side effects reviewed. Speculum inserted. Cervix visualized and cleansed with betadine x3. Transabdominal U/S performed to identify IUD arm in right lower uterine segment/upper cervix. Alligator forceps easily passed through cervical canal to level of IUD arm and with 2 passes, IUD arm grasped and removed without difficutly. Arm inspected and noted to be intact. Patient tolerated well. Jenifer Baker MD documented in this encounter Plan of Treatment Not on file documented as of this encounter Visit Diagnoses Diagnosis Tubal without intrauterine - Primary Mechanical breakdown of intrauterine contraceptive device, subsequent encounter documented in this encounter Administered Medications Inactive Administered Medications - up to 3 most recent administrations Medication Order MAR Action Action Date Dose Rate Site methotrexate chemo syringe 76.5 mg 76.5 mg (50 mg/m2 ? 1.53 m2), intramuscular, NOW X1, 1 dose, On Fri04/16/17 at 1030, STAT Given 04/16/2017 11:20 EDT 76.5 mg documented in this encounter Orders Medications Ordered That Francis ht Not Have Been Administered Count Last Ordered Date First Ordered Date methotrexate chemo syringe 76.5 mg 1 2016 documented in this encounter Care Teams Diamond Sorter Relationship Specialty Start Date End Date Rita Quiroga MD [address] [place] [phone] PCP - General 04/13/17 documented as of this encounter
--- OUTSIDE RECORDS SUMMARY | 2024-06-10 13:56 | XMS_ITS | Encounter Summary ---
Author Organization [facility] Address [address] [place] [address] Care Team Providers Care Life Underwriter Name Role Phone Phyllis Vega MD Primary Care Provider [phone] Encounter Details Date Type Department Care Team (Late st Contact Info) Description 11/16/2009 Abstract [facility] Women's Services [address] [address] Phyllis Vega MD [address] [place] [phone] Other General Counseling and Advice for Contraceptive Management Social History Tobacco Use Types Packs/Day Years Used Date Smoking Tobacco: Never Assessed Sex and Gender Information Value Date Recorded Sex Assigned at Not on file Gender Identity Not on file Sexual Orientation Not on file documented as of this encounter Plan of Treatment Not on file documented as of this encounter Visit Diagnoses Diagnosis Other general counseling and advice for contraceptive management documented in this encounter Care Teams Life Underwriter Relationship Specialty Start Date End Date Phyllis Veag MD [address] [place] [phone] PCP - General 03/24/09 04/12/17 documented as of this encounter
--- OUTSIDE RECORDS SUMMARY | 2024-06-10 13:56 | XMS_ITS | Encounter Summary ---
Author Organization [facility] Address [address] [place] [address] Care Team Providers Care Composing Room Supervisor Name Role Phone Unavailable Primary Care Provider Unavailabl e Encounter Details Date Type Department Care Team (Late st Contact Info) Description 12/14/2008 9:45 [facility] Hospital Encounter [facility] [place] [address] [place] [phone] Unknown, Provider, Social History Tobacco Use Types Packs/Day Years [...]
--- OUTSIDE RECORDS SUMMARY | 2024-06-10 13:56 | XMS_ITS | Encounter Summary ---
Author Organization [facility] Address [address] [place] [address] Care Team Providers Care Tile Ditcher Name Role Phone Phyllis Vega MD Primary Care Provider [phone] Encounter Details Date Type Department Care Team (Late st Contact Info) Description 01/25/2010 Abstract [facility] Women's Services [address] [address] Phyllis Vega MD [address] [place] [phone] Social History Tobacco Use Types Packs/Day Years Used Date Smoking Tobacco: Never Assessed Sex and Gender Information Value Date Recorded Sex Assigned at Not on file Gender Identity Not on file Sexual Orientation Not on file documented as of this encounter Plan of Treatment Not on file documented as of this encounter Visit Diagnoses Not on filedocumented in this encounter Care Teams Tile Ditcher Relationship Specialty Start Date End Date Phyllis Vega MD [address] [place] [phone] PCP - General 03/24/09 04/12/17 documented as of this encounter
--- OUTSIDE RECORDS SUMMARY | 2024-06-10 13:56 | XMS_ITS | Encounter Summary ---
Author Organization [facility] Address [address] [place] [address] Care Team Providers Care Adoption Social Worker Name Role Phone Phyllis Vega MD Primary Care Provider [phone] Encounter Details Date Type Department Care Team ([facility] Contact Info) Description 09/21/2010 18:09 EDT - 09/21/2010 18:10 EDT Hospital Encounter [facility] - Other [address] [place] [address] Aracely Palma MD [address] [place] [phone] Discharge Disposition: Home or Self Care Social [...] or Self Care documented in this encounter Plan of Treatment Not on file documented as of this encounter Visit Diagnoses Not on filedocumented in this encounter Care Teams Adoption Social Worker Relationship Specialty Start Date End Date Phyllis Vega MD [address] [place] [phone] PCP - General 03/24/09 04/12/17 documented as of this encounter
--- OUTSIDE RECORDS SUMMARY | 2024-06-10 13:56 | XMS_ITS | Encounter Summary ---
Author Organization [facility] Address [address] [place] [address] Care Team Providers Care First Aid Instructor Name Role Phone Phyllis Vega MD Primary Care Provider [phone] Encounter Details Date Type Department Care Team (Late Contact Info) Description 07/27/2010 Results Only [facility] Gastroenterology - [facility] [address] [place] [address] JeanieVenkatesh MD [address] [place] [address] [address] [place] [phone] Social History Tobacco Use Types Packs/Day Years [...] Date/Time Associated Diagnosis Comments SURGICAL PATHOLOGY Routine 07/27/2010 0:00 EDT documented in this encounter Results * SURGICAL PATHOLOGY (07/27/2010 0:00 EDT) Pathology Report: SURGICAL PATHOLOGY REPORT ? Reports generated via electronic interface contain original data; ? however they are lacking the format of the original report. ? Caution should be taken when reading/interpreti ng unformatted reports. ? Name: ? ROXANNE PERES V ? Accession #: ? [id number] ? : ? 1990 (Age: 20) ??F ? Collect Date: ? 07/27/2010 ? Location: ? [facility] ? Receive Date: ? 07/28/2010 ? Provider: VENKATESH MENDEZ MD ? Copy to: PHYLLIS M PATNO MD ? Final Pathologic Diagnosis: ? Duodenum, biopsy: ? - No specific pathologic features. ? Document reviewed and electronically signed by: ? Dre Su MD ? Report ??Date: 07/31/2010 14:04 ? By the signature above, the attending physician certifies that he/she has ? personally conducted a gross and/or microscopic examination of the described ? specimens and rendered or confirmed the above diagnosis. ? Specimen(s) Received: ? Duodenum ? Clinical History: ? Anemia ? Gross Description: ? Received in Roosevelthumaira's fixative labelled [place], Roxanne and biopsies ?? of duodenum are two pink-jameson, irregular soft tissues, each 0.3 x 0.2 x 0.2 cm, submitted in toto in a single cassette. (Liliana Suarez)/mpl ? End of Report ? JULIO C SHEPHERD 07/27/2010 07/28/2010 9:3 9 EDT Venkatesh Mendez MD PATHOLOGY ORDER DALLIN JULIO C K[facility] [address] [place] [address] documented in this encounter Visit Diagnoses Not on filedocumented in this encounter Care Teams First Aid Instructor Relationship Specialty Start Date End Date Phyllis Vega MD [address] [place] [phone] PCP - General 03/24/09 04/12/17 documented as of this encounter
--- OUTSIDE RECORDS SUMMARY | 2024-06-10 13:56 | XMS_ITS | Encounter Summary ---
Author Organization [facility] Address [address] [place] [address] Care Team Providers Care Fan Balancer Name Role Phone Phyllis Vega MD Primary Care Provider [phone] Reason for Visit * Reason Onset Date Comments Provider Referred 07/08/2016 Encounter Details Date Type Department Care Team (Late st Contact Info) Description 07/08/2016 Telephone [facility] Dermatology 3rd Floor [address] [address] Dee Steen MD [address] [place] [address], [facility] [address] [place] [phone] Provider Referred Social History Tobacco Use Types Packs/Day Years [...] encounter Miscellaneous Notes * Telephone Encounter - Elsi Maher RN - 07/09/2016 1403 EDT Call to patient re referral from Dr Rita Quiroga for non healing lesion nose Patient states red bump bridge nose x 9 months, thought a scar from pimple Does not bleed,scab or flake Desires full skin exam NPV 04/17/17 0815 Ana Hale PA-C Referring office informed Notes in triage folder Elsi Maher RN * Telephone Encounter - JerryDavid - 07/08/2016 1604 EDT Notes received from Rita Quiroga MD referring patient for a non healing lesion on nose. Please call patient to schedule. documented in this encounter Plan of Treatment Not on file documented as of this encounter Visit Diagnoses Not on filedocumented in this encounter Care Teams Fan Balancer Relationship Specialty Start Date End Date Phyllis Vega MD [address] [place] [phone] PCP - General 03/24/09 04/12/17 documented as of this encounter
--- OUTSIDE RECORDS SUMMARY | 2024-06-10 13:56 | XMS_ITS | Encounter Summary ---
Author Organization [facility] Address [address] [place] [address] Care Team Providers Care Procurement Clerk Name Role Phone Phyllis Vega MD Primary Care Provider [phone] Encounter Details Date Type Department Care Team ([facility] st Contact Info) Description 05/25/2009 15:00 EDT - 05/25/2009 23:59 EDT Hospital Encounter [facility] [place] [address] [place] [address] Hazel Glasgow MD [address] [place] [phone] Discharge Disposition: Home or Self Care Social History Tobacco Use Types Packs/Day Years Used Date Smoking Tobacco: Never Assessed Sex and Gender Information Value Date Recorded Sex Assigned at Not on file Gender Identity Not on file Sexual Orientation Not on file documented as of this encounter Discharge Disposition Disposition Code Departure Means Destination Home or Self Intermediate documented in this encounter Plan of Treatment Not on file documented as of this encounter Procedures Procedure Name Priority Date/Time Associated Diagnosis Comments CHLAMYDIA/N. GONORRHOEAE AMPLIFIED NUCLEIC ACID Routine 07/27/2009 18:02 EDT documented in this encounter Results * CHLAMYDIA/GC AMPLIFIED (07/27/2009 18:02 EDT) Specimen Description Cervix [facility] Result No Chlamydia trachomatis DNA detected by infrastructure administrator mediated amplification. [facility] Result No Neisseria gonorrhoeae DNA detected by infrastructure administrator mediated amplification. [facility] 07/27/2009 18:0 2 EDT 07/27/2009 18:02 EDT Sixto Yip MD MSc MICROBIOLOG Y - GENERAL ORDERABLES Performing Organization Address City/State/[facility] Co de Phone Number [facility] [address] [place] [address] documented in this encounter Visit Diagnoses Not on filedocumented in this encounter Care Teams Procurement Clerk Relationship Specialty Start Date End Date Phyllis Vega MD [address] [place] [phone] PCP - General 03/24/09 04/12/17 documented as of this encounter
--- OUTSIDE RECORDS SUMMARY | 2024-06-10 13:56 | XMS_ITS | Encounter Summary ---
Author Organization [facility] Address [address] [place] [address] Care Team Providers Care Account Support Rep Name Role Phone Rita Quiroga MD Primary Care Provider [phone] Reason for Visit * Reason Onset Date Comments Pharmacy 04/16/2017 Encounter Details Date Type Department Care Team (Late st Contact Info) Description 04/16/2017 Orders Only [facility] [address] [place] [address] Leni Delgado RN Social History Tobacco Use Types Packs/Day Years [...] of this encounter Progress Notes * Leni Delgado RN - 04/16/2017 1001 EDT Order placed for methotrexate per Dr. Baker. documented in this encounter Plan of Treatment Not on file documented as of this encounter Visit Diagnoses Not on filedocumented in this encounter Care Teams Account Support Rep Relationship Specialty Start Date End Date Rita Quiroga MD [facility] [employer] [address] [phone] PCP - General 04/13/17 documented as of this encounter
--- OUTSIDE RECORDS SUMMARY | 2024-06-10 13:56 | XMS_ITS | Encounter Summary ---
Author Organization [facility] Address [address] [place] [address] Care Team Providers Care Glazing Machine Operator Name Role Phone Rita Quiroga MD Primary Care Provider [phone] Reason for Visit * Reason Comments Ectopic seen at [facility], told she might have an ectopic prgnancy. Here with abdominal pain Encounter Details Date Type Department Care Team (Late st Contact Info) Description 04/13/2017 22:03 EDT - 04/14/2017 0:35 EDT Emergency [facility] Emergency Department - Main [place] [address] [place] [id number] Vic Lisa MD Emergency, MD Saman Less than 8 weeks gestation of (Primary Dx); Ovarian cyst, left; Vaginal bleeding; Foreign body in uterus, any part, initial encounter Discharge Disposition: Home or Self Care Social [...] Sign Reading Time Taken Comments Blood Pressure 100/49 04/14/2017 0029 EDT Pulse 72 04/14/2017 0029 EDT Temperature 37.2 ??C (99 ??F) 04/13/2017 2207 EDT Respiratory Rate 16 04/14/2017 0029 EDT Oxygen Saturation 99% 04/14/2017 0029 EDT Inhaled Oxygen Concentration - - Weight - - Height - - Body Mass Index - - documented in this encounter Discharge Diagnoses Diagnosis T83.32XA Displacement of intrauterine contraceptive device, initial encounter-T83.32XA[ICD-10-CM] Y83.8 Other surgical procedures as the cause of abnormal reaction of the patient, or of later complication, without mention of misadventure at the time of the procedure-Y83.8[ICD-10-CM] N83.202 Unspecified ovarian cyst, left side-N83.202[ICD-10-CM] N93.9 Abnormal uterine and vaginal bleeding, unspecified-N93.9[ICD-10-CM] documented in this encounter Discharge Instructions * Discharge Instructions* Vic Lisa MD - 04/14/2017 0:29 EDT [facility] with [facility] The decision about whether this is an ectopic will most likely be based on the change in the blood work on Friday Return here if worsening symptoms as discussed Followup with [facility] about decisions on what to do about piece of IUD retained in uterus documented in this encounter Medications at Time [...] Departure Means Destination Home or Self Care Walk-out Home documented in this encounter ED Notes * Yaneth Floyd RN - 04/13/2017 9489 EDT Pt to U/S via stretcher with [employer]. * Vic Lisa MD - 04/13/2017 0247 EDT DOS: 04/13/2017 Chief Complaint Patient presents with ??? [facility]opic [facility] at [facility], told she might have an ectopic prgnancy. Here with abdominal pain HPI Comments: I, Heidi Duane, am scribing for Vic Lisa MD while he/she is personally performing the service. Heidi Duane 04/13/2017 22:52 Roxanne Beltran is a 27 y.o. female with a history of , positive test (urine and blood) and [facility] Patient also received Rhogam due to rH negative yesterday, and [facility]. Patient reports that she was told yesterday that her IUD was faulty, one of arms fell off, and it is still in her uterus. [facility] of LLQ abdominal pain, vaginal bleeding. Patient explains that her last MP started 03/28/17 and seemed normal, but then approx one week ago shebegan having abnormal bleeding and central and left suprapubic cramping, similar to menstrual crmpaing. She states that in the past few days the pain has localized to left side, and the bleeding has been decreasing in volume. Endorses anxiety and mild dizziness today. Denies urinary symptoms, dyspnea, or other acute symptoms. The history is provided by the patient and medical records. No paper wood cutter was used. Review of Systems Review of Systems Constitutional: Negative. Negative for chills and fever. HENT: Negative. Negative for congestion, sore throat and trouble swallowing. Eyes: Negative. Negative for visual disturbance. Respiratory: Negative. Negative for chest tightness and shortness of breath. Cardiovascular: Negative. Negative for chest pain, palpitations and leg swelling. Gastrointestinal: Positive for abdominal pain. Negative for abdominal distention. Endocrine: Negative. Genitourinary: Positive for menstrual problem, pelvic pain and vaginal bleeding. Negative for dysuria, frequency, hematuria and urgency. Musculoskeletal: Negative. Negative for arthralgias. Skin: Negative. Negative for rash. Allergic/Immunologic: Negative. Negative for immunocompromised state. Neurological: Positive for dizziness. Negative for headaches. Hematological: Negative. Negative for adenopathy. Does not bruise/bleed easily. Psychiatric/Behavioral: Negative for confusion. The patient is nervous/anxious. All other systems reviewed and are negative. The patient's past medical, family and social history was reviewed and updated as needed. No Known Allergies Vital Signs Temp: 37.2 ??C (99 ??F) Temp src: Oral Pulse: 72 Resp: 16 SpO2: 99 % BP: 100/49 BP Device: BP Machine Patient Position: Lying left side BP Cuff Location: Right arm O2 Device: None (Room air) Physical Exam Constitutional: She is oriented to person, place, and time. She appears well- developed and well-nourished. No distress. Awake, alert. HENT: Head: Normocephalic and atraumatic. Right Ear: External ear normal. Left Ear: External ear normal. Nose: Nose normal. Eyes: Conjunctivae are normal. Pupils are equal, round, and reactive to light. Right eye exhibits no discharge. Left eye exhibits no discharge. Pupils equal. Neck: Normal range of motion. Neck supple. No tracheal deviation present. Cardiovascular: Normal rate, regular rhythm and normal heart sounds. No tachycardia. Pulmonary/Chest: Effort normal and breath sounds normal. No respiratory distress. Abdominal: Soft. She exhibits no distension. There is tenderness (mild, LLQ). There is no rebound and no guarding. + bowel sounds. Musculoskeletal: Normal range of motion. Neurological: She is alert and oriented to person, place, and time. She has normal strength. No sensory deficit. She exhibits normal muscle tone. Skin: Skin is warm and dry. No rash noted. Psychiatric: She has a normal mood and affect. Nursing note and vitals reviewed. RESULTS Radiology orders: RAD US OB LESS THAN 14 WKS TRANSVAGINAL & LMT DOPPLER ED Lab Results Labs Reviewed - No data to display Relevant Data Procedures ED COURSE HCG done today was 267 A medical screening exam was performed. US of the pelvis shows an empty uterus, no adnexal masses or free fluid, and a 2.9 cm left ovarian cyst, read by hvac technician residential. There is a hyperechoic shadowing structure present within the endometrial cavity, consistent with one arm of the IUD missing. I feel patient is stable for outpatient management, and has plan in place to have repeat beta HCG and [facility]. Prior to discharge usual and customary precautions were reviewed with the patient and/or family including follow-up instructions and reasons to return to the Emergency Department if condition worsens, does not improve as expected, or other new concerns arise. ASSESSMENT AND PLAN Final diagnoses: Less than 8 weeks gestation of Ovarian cyst, left Vaginal bleeding Foreign body in uterus, any part, initial encounter DISPOSITION: Discharged The patient's pain was managed to an adequate level weighing risk vs. benefit of further medications. Upon departure from the Emergency Department, the patient's pain was 2 on a zero to ten scale. Condition at departure from the Emergency Department: Good PCP: Rita Quiroga MDM Number of Diagnoses or Management Options Foreign body in uterus, any part, initial encounter: Less than 8 weeks gestation of : Ovarian cyst, left: Vaginal bleeding: Diagnosis management comments: 4 This documentation is recorded by Heidi Zepeda acting as Scribe under the direction and presence ofVic Lisa MD. Vic Lisa MD: I personally performed the services recorded by the scribe in my presence. I confirm the scribe's documentation has been reviewed by me to accurately and completely record my work, treatment, procedures, and medical decision making. 04/14/2017 0:30 No flowsheet data found. documented in this encounter Plan of Treatment Not on file documented as of this encounter Procedures Procedure Name Priority Date/Time Associated Diagnosis Comments RAD US OB LESS THAN 14 WKS TRANSVAGINAL & LMT DOPPLER STAT 04/14/2017 0:07 EDT documented in this encounter Results * RAD US OB LESS THAN 14 WKS TRANSVAGINAL & LMT DOPPLER (04/14/2017 0:07 EDT) Anatomical Region Laterality Modality Other 04/14/2017 0:07 EDT 04/14/2017 9:09 EDT Narrative 04/14/2017 9:09 EDT OB Ultrasound First Trimester Without Fetus COMPARISON: None TECHNIQUE: Transabdominal and transvaginal color and grayscale static and video loop images were obtained MATERNAL STRUCTURES: UTERUS: The uterus is anteflexed and measures 8.1 x 4.7 x 4.2 cm and shows homogeneous echotexture. The endometrial cavity is empty and endometrial stripe thickness measures 5 mm. A hyperechoic and shadowing structures present within the endometrial cavity consistent with the provided history of one arm of an IUD missing. FLUID COLLECTION WITHIN UTERUS: None RIGHT OVARY: The right ovary measures 3.1 x 2.4 x 2.6 cm and shows normal color Doppler flow with arterial and venous waveforms LEFT OVARY: The left ovary measures 3.7 x 3.1 x 2.7 cm and shows normal color Doppler flow with arterial and venous waveforms. There is an anechoic cyst measuring 2.9 x 2.2 x 2.7 cm likely reflecting a corpus luteum. OTHER ADNEXAL MASS: None FREE FLUID: None BIOMETRY/MEASUREMENTS: LMP: 03/28/2017 = 2 weeks 2 days PRIOR ULTRASOUND DATING: None available MEAN SAC DIAMETER: Not applicable YOLK SAC: Not applicable FETUS: Absent CARDIAC ACTIVITY: Not applicable IMPRESSION: 1. The uterus is empty and there is no adnexal mass or free fluid. The differential includes early intrauterine , ectopic , and spontaneous termination. Close ultrasound follow-up and serial beta hCGs are recommended. 2. 2.9 cm anechoic left ovarian cyst likely represents a corpus luteum. I have personally reviewed the images and the above interpretation and agree with the findings. Procedure Note Rakesh Boles MD - 04/14/2017 OB Ultrasound First Trimester Without Fetus COMPARISON: None TECHNIQUE: Transabdominal and transvaginal color and grayscale static and video loop images were obtained MATERNAL STRUCTURES: UTERUS: The uterus is anteflexed and measures 8.1 x 4.7 x 4.2 cm and shows homogeneous echotexture. The endometrial cavity is empty and endometrial stripe thickness measures 5 mm. A hyperechoic and shadowing structures present within the endometrial cavity consistent with the provided history of one arm of an IUD missing. FLUID COLLECTION WITHIN UTERUS: None RIGHT OVARY: The right ovary measures 3.1 x 2.4 x 2.6 cm and shows normal color Doppler flow with arterial and venous waveforms LEFT OVARY: The left ovary measures 3.7 x 3.1 x 2.7 cm and shows normal color Doppler flow with arterial and venous waveforms. There is an anechoic cyst measuring 2.9 x 2.2 x 2.7 cm likely reflecting a corpus luteum. OTHER ADNEXAL MASS: None FREE FLUID: None BIOMETRY/MEASUREMENTS: LMP: 03/28/2017 = 2 weeks 2 days PRIOR ULTRASOUND DATING: None available MEAN SAC DIAMETER: Not applicable YOLK SAC: Not applicable FETUS: Absent CARDIAC ACTIVITY: Not applicable IMPRESSION: 1. The uterus is empty and there is no adnexal mass or free fluid. The differential includes early intrauterine , ectopic , and spontaneous termination. Close ultrasound follow-up and serial beta hCGs are recommended. 2. 2.9 cm anechoic left ovarian cyst likely represents a corpus luteum. I have personally reviewed the images and the above interpretation and agree with the findings. Vic Lisa MD IMG US ORDERABLES documented in this encounter Visit Diagnoses Diagnosis Less than 8 weeks gestation of - Primary state, incidental Ovarian cyst, left Other and unspecified ovarian cyst Vaginal bleeding Other specified noninflammatory disorder of vagina Foreign body in uterus, any part, initial encounter documented in this encounter Discontinued Medications Medication Sig Discontinue Reason Start Date End Da te citalopram (CELEXA) 20 mg tablet Take 20 mg by mouth daily. 04/13/2017 FAMOTIDINE (PEPCID ORAL) Take by mouth. 017 ibuprofen 200 mg Cap Take 200 mg by mouth daily as needed. 04/13/2017 Multivitamins with Minerals Tab Take 1 Tab by mouth daily. 04/13/2017 omeprazole (PRILOSEC) 20 mg capsule Take 20 mg by mouth daily. 04/13/2017 documented as of this encounter Historical Medications * This list may reflect changes made after this encounter. Medication Sig Dispensed Refills Start Date End Date fexofenadine (GRIS) 60 mg tablet Take 60 mg by mouth 2 times daily. ranitidine (ZANTAC) 150 mg tablet Take 150 mg by mouth 2 times daily. escitalopram oxalate (LEXAPRO) 10 mg tablet Take 10 mg by mouth daily. added in this encounter Care Teams Glazing Machine Operator Relationship Specialty Start Date End Date Rita Quiroga MD [address] [place] [phone] PCP - General 04/13/17 documented as of this encounter
--- OUTSIDE RECORDS SUMMARY | 2024-06-10 13:56 | XMS_ITS | Encounter Summary ---
Author Organization [facility] Address [address] [place] [address] Care Team Providers Care Professional Bass Fisher Name Role Phone Phyllis Vega MD Primary Care Provider [phone] Encounter Details Date Type Department Care Team (Latest Contact Info) Description 2009 10:56 EDT - 2009 15:26 EDT Hospital Encounter [facility] [address] [address] Unknown, Provider, Discharge Disposition: Home or Self [...] Procedure Name Priority Date/Time Associated Diagnosis Comments D-DIMER Routine 2009 14:18 EDT CHEST PA AND LATERAL 2009 13:31 EDT documented in this encounter Results * D-DIMER (2009 14:18 EDT) D-Dimer 0.25 <0.50 ug FEU/ml [facility] Comment: The presence of rheumatoid factor (RF) at a level greater than 50IU/ml may ?lead to an over-estimation of the D-Dimer level. ??It is therefore ?recommended that the presence of RF in the test samples be confirmed by an ?appropriate RF procedure for cases of unexplained D-Dimer positive results. CUTOFF VALUE FOR THE EXCLUSION OF DVT and PE: 0.5 ug FEU/mL Blood specimen (specimen) 2009 14:18 EDT 2009 14:28 EDT Laura Bravo PA-C HEMATOLOGY & P F4 ORDERABLES Performing Organization Address City/State/[facility] Co de Phone Number [facility] [address] [place] [address] * CHEST PA AND LATERAL (2009 13:31 EDT) Anatomical Region Laterality Modality Other 2009 13:3 1 EDT 2009 14:04 EDT Narrative 2009 14:04 EDT History: ?? SOB Two views of the chest was obtained. Findings: ?? The lungs are clear. ??There are no pleural effusions. ?? Cardiomediastinal silhouette is within normal limits. Osseous structures are unremarkable. Impression: No evidence of pneumonia. Procedure Note 2009 History: SOB Two views of the chest was obtained. Findings: The lungs are clear. There are no pleural effusions. Cardiomediastinal silhouette is within normal limits. Osseous structures are unremarkable. Impression: No evidence of pneumonia. Laura Bravo PA-C IMG DIAGNOSTIC IMAGING ORDERABLES documented in this encounter Visit Diagnoses Not on filedocumented in this encounter Care Teams Professional Bass Fisher Relationship Specialty Start Date End Date Phyllis Vega MD [address] [place] [phone] PCP - General 03/24/09 04/12/17 documented as of this encounter
--- OUTSIDE RECORDS SUMMARY | 2024-06-10 13:56 | XMS_ITS | Encounter Summary ---
Author Organization [facility] Address [address] [place] [address] Care Team Providers Care Sports Agent Name Role Phone Phyllis Vega MD Primary Care Provider [phone] Encounter Details Date Type Department Care Team (Latest Contact Info) Description 2009 15:04 EDT - 2009 15:05 EDT Hospital Encounter [facility] - [facility] [address] [place] [address] Laura Bravo PA-C [address] [place] [phone] Discharge Disposition: Home or Self Care Social [...] on filedocumented in this encounter Care Teams Sports Agent Relationship Specialty Start Date End Date Phyllis Vega MD [address] [place] [phone] PCP - General 03/24/09 04/12/17 documented as of this encounter
--- OUTSIDE RECORDS SUMMARY | 2024-06-10 13:56 | XMS_ITS | Encounter Summary ---
Author Organization [facility] Address [address] [place] [address] Care Team Providers Care Assembler Adjuster Name Role Phone Phyllis Vega MD Primary Care Provider [phone] Reason for Visit * Reason Onset Date Comments Eye Problem 10/16/2011 FLOATERS GETTING WORSE OVER THE PAST MONTH OR TWO LT>RT Appointment Related 10/16/2011 PT CALLED AN D WE SCHED HER FOR 10.30.11 PER EVELIO Encounter Details Date Type Department Care Team (Late st Contact Info) Description 10/16/2011 Telephone [facility] Ophthalmology - [address] [address] Daljit Dyer MD [address] [facility], [address] [place] [address] Eye Problem (FLOATERS GETTING WORSE OVER THE PAST MONTH OR TWO LT>RT); Appointment Related (PT CALLED AND WE SCHED HER FOR 10.30.11 PER EVELIO) Social History Tobacco Use Types Packs/Day Years [...] encounter Miscellaneous Notes * Telephone Encounter - Estrellita Dos Santos - 10/21/2011 1057 EST TRIED UNSUCESSFULY TO REACH PT SEVERAL TIMES T MSS EACH TIME * Telephone Encounter - Shelia Rogers RN - 10/16/2011 1405 EST EVELIO would like to see this pt in the next 3 weeks. I gave this message to Estrellita Dos Santos and she willbe calling this pt to set up the appt. * Telephone Encounter - Shelia Rogers RN - 10/16/2011 1324 EST Nature of problem? BYK referred pt to see EVELIO. EVELIO stated to call again if the 'blue spots of light' were getting worse. Pt reports seeing 'blue spots of light' which she has had for 6 months now. Ptreports that she is seeing them more frequently. She reports noticing them more often now. Pt notices them several times a week (before pt a was seeing them a few times/wk). Onset and Duration? Had for 6 months. Pt noticed that the 'blue spots' have increased in frequency in the past month Is this an injury? no Pain? no Have you recently had eye surgery? no Are you having flashes/and or floaters? Yes see above Any sensitivity to light? no Any loss of vision/curtain/darkness/veil? no Any change in vision/double vision/blurred? no Any redness? no Who is your usual eye doctor? EVELIO (did see BYK in the past and was referred to EVELIO for the 'blue spots') Phone Number of Eye Doctor (if not FACP): EVELIO Any other pertinent information? n/a Please remember that a physician must approve if you are telling the patient to wait for an appointment. Please ask the patient where they are now, and where they can be reached for the next two hours. VERIFY THE PHONE NUMBERS REGARDLESS OF WHAT IS IN THE SYSTEM. Please ask how long it would take them to get to [facility], if they were to be told to come. Pt lives in [place] and it would take her about 10mins to get to [facility]. Pt Will be going out of town from this Friday to next Friday. Phone #: [phone]: I gave this to Milly Linares To go over with EVELIO. documented in this encounter Plan of Treatment Not on file documented as of this encounter Visit Diagnoses Not on filedocumented in this encounter Care Teams Assembler Adjuster Relationship Specialty Start Date End Date Phyllis Vega MD [address] [place] [address] [phone] PCP - General 03/24/09 04/12/17 documented as of this encounter
--- OUTSIDE RECORDS SUMMARY | 2024-06-10 13:56 | XMS_ITS | Encounter Summary ---
Author Organization [facility] Address [address] [place] [address] Care Team Providers Care Customer Engagement Specialist Name Role Phone Rita Quiroga MD Primary Care Provider [phone] Reason for Referral * GAS USAGE METER CLERK (Other (Specify in Question)) - Closed Specialty Diagnoses / Procedures Referred By Zafar jason Referred To Contact Diagnoses of unknown anatomic location Procedures PROFESSOR OF RADIOLOGY US OB FIRST TRIMESTER TRANSVAGINAL Jenifer Baker MD [address] [facility], [address] [place] [address] Referral ID Status Reason Start Date Expiration Date Visits Re quested Visits Authorized [id number] Closed 04/15/2017 1 1 Reason for Visit * Reason Onset Date Comments Ectopic 04/15/2017 Encounter Details Date Type Department Care Team (Late st Contact Info) Description 04/15/2017 Orders Only [facility] Women's Services - [address] [id number] Leni Delgado RN of unknown anatomic location (Primary Dx) Social [...] Progress Notes * Leni Delgado RN - 04/15/2017 1614 EDT Pt being referred by DELIO for suspected ectopic ,+ UPT with IUD. Abnormally rising serialbeta hcg (267 to 287). PPNNE removed IUD (complicated by one arm remaining in her endometrial cavity). TVUS scheduled for tomorrow at 0900, CON to follow. MTX labs ordered. Pt was advised by Dr. Zuleta to have labs done in the morning followed by US and CON in PROFESSOR OF RADIOLOGY clinic. Added to PROFESSOR OF RADIOLOGY beta hcg monitoring list. Reported height is 62 and weight is 118 pounds. documented in this encounter Plan of Treatment Not on file documented as of this encounter Procedures Procedure Name Priority Date/Time Associated Diagnosis Comments PROFESSOR OF RADIOLOGY OB FIRST TRIMESTER TRANSVAGINAL Routine 04/16/2017 9:23 EDT of unknown anatomic location documented in this encounter Results * PROFESSOR OF RADIOLOGY US OB FIRST TRIMESTER TRANSVAGINAL (04/16/2017 9:23 EDT) Anatomical Region Laterality Modality Other 04/16/2017 9:23 EDT 04/16/2017 10:40 EDT Narrative 04/16/2017 10:40 EDT Indication Early with paragard IUD. Abnormally rising HCG's. Number of fetuses: 1. Dating ======= LMP on: ?03/28/2017 GA by LMP ??2 w + 5 d NAVJOT by LMP : ? 01/02/2018 Assessment Gestational sac: Not visualized. Location: Tubal . Yolk sac: Not visualized. Amniotic sac: Not visualized. Embryo: Not visualized. Cardiac activity: Undetected. Maternal Structures Uterus / Cervix Endometrial thickness, total ?? 4.2 mm Ovaries / Tubes / Adnexa Rt ovary: ??Normal with Corpus luteum Rt ovary D1 ?3.5 cm Rt ovary D2 ?2.7 cm Rt ovary D3 ?1.9 cm Rt ovary mean ??2.7 cm Rt ovary vol ?? 9.2 cm cubed Rt fallopian tube: Abnormal Rt fallopian tube details: Echogenic donut sign mass highly suspicous for ectopic. Rt fallopian tube D1 ?? 22.0 mm Rt fallopian tube D2 ?? 12.0 mm Rt fallopian tube D3 ?? 11.0 mm Lt ovary: ??Abnormal Lt ovary D1 ?4.5 cm Lt ovary D2 ?3.7 cm Lt ovary D3 ?2.8 cm Lt ovary mean ??3.7 cm Lt ovary vol ?? 24.7 cm cubed Lt ovarian cyst(s): ?Cysts identified Findings: ??Hemorrhagic cyst D1 32.7 mm D2 24.3 mm D3 35.2 mm Mean ?? 30.7 mm Vol ?14.645 cm cubed Pouch of [place] / Other Structures Cul de Sac: ?Appears normal Free fluid: ?Free fluid visualized Amount of free fluid: ??mild Method ======== Transvaginal ultrasound examination. View: Sufficient. Impression OB transvaginal [id number] Right adnexal mass adjacent to right ovary containing two CL's highly suspicious for tubal ectopic. Anteverted uterus with remnant Paragard IUD arm embedded into the right FRANKIE. No IUP identified. Left hemorrhagic cyst. The Paragard arm was removed under direct ultrasound visualization. Follow-up See [facility] notes for discussion of treatment plans for ectopic . Procedure Note Nam Edwards MD - 04/16/2017 Indication Early with paragard IUD. Abnormally rising HCG's. Number of fetuses: 1. Dating ======= LMP on: 03/28/2017 GA by LMP 2 w + 5 d NAVJOT by LMP : 01/02/2018 Assessment Gestational sac: Not visualized. Location: Tubal . Yolk sac: Not visualized. Amniotic sac: Not visualized. Embryo: Not visualized. Cardiac activity: Undetected. Maternal Structures Uterus / Cervix Endometrial thickness, total 4.2 mm Ovaries / Tubes / Adnexa Rt ovary: Normal with Corpus luteum Rt ovary D1 3.5 cm Rt ovary D2 2.7 cm Rt ovary D3 1.9 cm Rt ovary mean 2.7 cm Rt ovary vol 9.2 cm cubed Rt fallopian tube: Abnormal Rt fallopian tube details: Echogenic donut sign mass highly suspicous for ectopic. Rt fallopian tube D1 22.0 mm Rt fallopian tube D2 12.0 mm Rt fallopian tube D3 11.0 mm Lt ovary: Abnormal Lt ovary D1 4.5 cm Lt ovary D2 3.7 cm Lt ovary D3 2.8 cm Lt ovary mean 3.7 cm Lt ovary vol 24.7 cm cubed Lt ovarian cyst(s): Cysts identified Findings: Hemorrhagic cyst D1 32.7 mm D2 24.3 mm D3 35.2 mm Mean 30.7 mm Vol 14.645 cm cubed Pouch of [place] / Other Structures Cul de Sac: Appears normal Free fluid: Free fluid visualized Amount of free fluid: mild Method ======== Transvaginal ultrasound examination. View: Sufficient. Impression OB transvaginal [id number] Right adnexal mass adjacent to right ovary containing two CL's highly suspicious for tubal ectopic. Anteverted uterus with remnant Paragard IUD arm embedded into the right FRANKIE. No IUP identified. Left hemorrhagic cyst. The Paragard arm was removed under direct ultrasound visualization. Follow-up See [facility] notes for discussion of treatment plans for ectopic . Jenifer Baker MD IMG US PROFESSOR OF RADIOLOGY ORDER DALLIN * (ABNORMAL) BUN (04/16/2017 8:37 EDT) BUN 8(L) 10 - 26 mg/dl 04/16/2017 9:38 EDT [facility] Blood specimen (specimen) BLOOD SPECIMEN / Unknown 04/16/2017 8:37 EDT 04/16/2017 8:53 EDT Jenifer Baker MD CHEMISTRY & BLOO D GAS ORDERABLES [facility] [address] [place] [address] * CREATININE (04/16/2017 8:37 EDT) Creatinine 0.61 0.52 - 1.04 mg/dl 04/16/2017 9:38 EDT [facility] GFR, Calculated 124 >60 ml/min/1.7 3m2 04/16/2017 9:38 EDT [facility] Comment: eGFR calculated using CKD-EPI equation for non Americans. Multiply eGFR by 1.16 for Americans. Blood specimen (specimen) BLOOD SPECIMEN / Unknown 04/16/2017 8:37 EDT 04/16/2017 8:53 EDT Jenifer Baker MD CHEMISTRY & BLOO D GAS ORDERABLES Performing Organization Address [facility]/ZIP Co de Phone Number [facility] [address] [place] [address] * AST (04/16/2017 8:37 EDT) AST 18 15 - 46 U/L 04/16/2017 9:38 EDT [facility] Blood specimen (specimen) BLOOD SPECIMEN / Unknown 04/16/2017 8:37 EDT 04/16/2017 8:53 EDT Jenifer Baker MD CHEMISTRY & BLOO D GAS ORDERABLES Performing Organization Address City/[facility]/ZIP Co de Phone Number [facility] [address] [place] [address] * ALT (04/16/2017 8:37 EDT) ALT 20 <53 U/L 04/16/2017 9:38 EDT [facility] Blood specimen (specimen) BLOOD SPECIMEN / Unknown 04/16/2017 8:37 EDT 04/16/2017 8:53 EDT Jenifer Baker MD CHEMISTRY & BLOO D GAS ORDERABLES [facility] [address] [place] [address] * (ABNORMAL) HEMAGRAM (04/16/2017 8:37 EDT) WBC 7.89 4.0 - 12.4 K/cmm 04/16/2017 9:16 EDT [facility] RBC 4.29 3.86 - 5.04 M/cmm 04/16/2017 9:16 T [facility] Hemoglobin 11.8 11.6 - 15.2 gm/dl 04/16/2017 9:16 EDT [facility] HCT 35.6 34.9 - 44.4 % 04/16/2017 9:16 T [facility] MCV 83 81 - 98 fl 04/16/2017 9:16 T [facility] MCH 27.5 26.7 - 33.3 pg 04/16/2017 9:16 [facility] MCHC 33.1 32.1 - 35.9 gm/dl 04/16/2017 9:16 [facility] RDW-CV 15.1(H) <14.7 % 04/16/2017 9:16 [facility] RDW-SD 46.3 <50.4 fl 04/16/2017 9:16 [facility] PLT 287 141 - 377 K/cmm 04/16/2017 9:16 [facility] MPV 11.0 9.5 - 12.7 fl 04/16/2017 9:16 [facility] Blood specimen (specimen) BLOOD SPECIMEN / Unknown 04/16/2017 8:37 EDT 04/16/2017 8:53 EDT Jenifre Baker MD HEMATOLOGY & PF4 ORDERABLES [facility] [address] [place] [address] * (ABNORMAL) HCG FOR (04/16/2017 8:37 EDT) Quant Beta HCG, Preg 317(H) <5 mIU/ml 04/16/2017 9:38 EDT [facility] Comment: Reference Range: Negative = <5 Indeterminate = 5-25 recommend repeat in 48 hours. Positive = >25 Blood specimen (specimen) BLOOD SPECIMEN / Unknown 04/16/2017 8:37 EDT 04/16/2017 8:53 EDT Jenifer Baker MD CHEMISTRY & BLOO D GAS ORDERABLES [facility] [address] [place] [address] documented in this encounter Visit Diagnoses Diagnosis of unknown anatomic location- Primary state, incidental documented in this encounter Care Teams Customer Engagement Specialist Relationship Specialty Start Date End Date Rita Quiroga MD [address] [place] [phone] PCP - General 04/13/17 documented as of this encounter
--- OUTSIDE RECORDS SUMMARY | 2024-06-10 13:57 | XMS_ITS | Encounter Summary ---
Author Organization [facility] Address [address] [place] [address] Care Team Providers Care Tile Setter Apprentice Name Role Phone Unavailable Primary Care Provider Unavailabl e Encounter Details Date Type Department Care Team (Latest Contact Info) Description 10/10/2008 10:20 EST - 10/10/2008 11:59 EST Hospital Encounter [facility] [address] [place] [address] Angela Eubanks MD [address] [place] [phone] Discharge Disposition: Auto Discharge Social History Tobacco Use Types Packs/Day Years Used Date Smoking Tobacco: Never Assessed Sex and Gender Information Value Date Recorded Sex Assigned at Not on file Gender Identity Not on file Sexual Orientation Not on file documented as of this encounter Discharge Disposition Disposition Code Departure Means Destination Auto Discharge documented in this encounter Plan of Treatment Not on file documented as of this encounter Procedures Procedure Name Priority Date/Time Associated Diagnosis Comments ENDOMYSIAL ANTIBODY, SERUM Routine 10/10/2008 12:13 EST TISSUE TRANSGLUTAMINASE ANTIBODY Routine 10/10/2008 12:13 EST CERULOPLASMIN, S Routine 10/10/2008 12:1 3 EST ANTI NUCLEAR AB (KIN), IFA Routine 10/10/2008 12:13 EST CK Routine 10/10/2008 12:13 EST HEPATIC FUNCTION PANEL (ALB,ALK PHOS,ALT,AST,DBIL,TOT CHERYL,TOT PROT) Routine 10/10/2008 12:13 EST LIPID PROFILE (INCLUDES CHOLESTEROL, TRIGLYCERIDES, HDL, LDL) Routine 10/10/2008 12:13 EST RAD US ABDOMEN ONE ORGAN/QUADRANT 10/10/2008 10:56 EST documented in this encounter Results * TISSUE TRANSGLUTAMINASE ANTIBODY (10/10/2008 12:13 EST) Tissue Transglutaminase Ab 1.7 <15.01 U/ml [facility] 10/10/2008 12:1 3 EST 10/10/2008 12:20 EST Angela Eubanks MD IMMUNOLOGY AND SONDRA ESTEBAN ORDERABLES Performing Organization Address City/State/[facility] Co de Phone Number [facility] [address] [place] [address] * ENDOMYSIAL ANTIBODY, SERUM (10/10/2008 12:13 EST) Endomysial Antibodies Negative Reference range: Negative Analyte Specific Reagent ? This test was developed and its performance characteristics ? determined by [facility], [place] [facility]. This test has not been cleared or ? approved by the U.S. Food and Drug Administration. ? Performed or Referred by: [facility] D[facility] of Lab Med and Path, [address] [place] [address], Lab Dir: Doroteo Viveros III, ? MD ? [facility] 10/10/2008 12:1 3 EST 10/10/2008 12:20 EST Angela Eubanks MD IMMUNOLOGY AND SONDRA GARCIAABLES Performing Organization Address City/State/[facility] Co de Phone Number [facility] [address] [place] [address] * CERULOPLASMIN (10/10/2008 12:13 EST) Cerulplasmin 25.7Reference range: 14.0 to 47.8 Unit: mg/dL Please note change in methodology and reference ? values effective 08/23/2008. ? Performed or Referred by: [facility] of Lab Med and Path, [address] ? [place] [address], Lab Dir: Doroteo Viveros III, ? MD ? [facility] 10/10/2008 12:1 3 EST 10/10/2008 12:20 EST Angela Eubanks MD CHEMISTRY & BLOOD GA S ORDERABLES Performing Organization Address [facility] de Phone Number [facility] [address] [place] [address] * ANTI NUCLEAR ANTIBODY (10/10/2008 12:13 EST) Anti Nuclear Ab <40 0 - 40 Dils [facility] 10/10/2008 12:1 3 EST 10/10/2008 12:20 EST Angela Eubanks MD IMMUNOLOGY AND SEROL OGY ORDERABLES Performing Organization Address [facility] de Phone Number [facility] [address] [place] [address] * CK (10/10/2008 12:13 EST) CK 74 30 - 135 U/L [facility] 10/10/2008 12:1 3 EST 10/10/2008 12:20 EST Angela Eubanks MD CHEMISTRY & BLOOD GA S ORDERABLES Performing Organization Address [facility] de Phone Number [facility] [address] [place] [address] * (ABNORMAL) LIVER FUNCTION TESTS (10/10/2008 12:13 EST) Albumin 5.3(H) 3.4 - 4.9 g/dl [facility] Total Protein 7.9 6.5 - 8.3 g/dl [facility] Alkaline Phosphatase 79 38 - 126 U/L [facility] ALT 38 9 - 52 U/L [facility] AST 32 15 - 46 U/L [facility] Unconjugated Bilirubin 0.7 0.1 - 1.1 mg/dl [facility] Conjugated Bilirubin 0.0 0.0 - 0.3 mg/dl [facility] Bilirubin, Total <0.5 0.2 - 1.3 mg/dl [facility] 10/10/2008 12:1 3 EST 10/10/2008 12:20 EST Angela Eubanks MD CHEMISTRY & BLOOD DC S ORDERABLES Performing Organization Address [facility] de Phone Number [facility] [address] [place] [address] * LIPID PROFILE (10/10/2008 12:13 EST) Pathologist [facility] Cholesterol 145 mg/dl [facility] Comment: Desirable:<200 Borderline High:200-239 High:>oo=142 Triglycerides 60 35 - 160 mg/dl [facility] HDL 40 mg/dl [facility] Comment: Low:<40 High(Desirable):>or=60 LDL, Calculated 93 mg/dl [facility] Comment: Optimal:<100 Above optimal:100-129 Borderline High:130-159 High:160-189 Very High:>tq=517 Chol/HDL Ratio 3.[address] [facility] Fasting? Yes [facility] 10/10/2008 12:1 3 EST 10/10/2008 12:20 EST Angela Eubanks MD CHEMISTRY & BLOOD DC S ORDERABLES Performing Organization Address [facility] Phone Number [facility] [address] [place] [address] * RAD US ABDOMEN ONE ORGAN/QUADRANT (10/10/2008 10:56 EST) Anatomical Region Laterality Modality Other 10/10/2008 10:5 6 EST Narrative 04/17/2009 9:42 EDT elevated liver enzymes Right upper quadrant ultrasound 10 October 2008 History: 18-year-old female with elevated liver function tests. Rule out fatty liver or stones. Findings: Scans of the right upper quadrant showing normal size liver. The portal triads appear somewhat prominent. This finding may be seen in hepatitis. Correlation with laboratory tests may be helpful. The pancreas and right kidney appear unremarkable. The gallbladder appears normal. No biliary ductal dilatation. The common hepatic duct measures 2 mm in diameter. Impression: Slightly prominent portal triads which may be a normal variant. No gallstones biliary ductal dilatation or liver masses. See above. Procedure Note Terry Victoria, DO - 04/17/2009 elevated liver enzymes Right upper quadrant ultrasound 10 October 2008 History: 18-year-old female with elevated liver function tests. Rule out fatty liver or stones. Findings: Scans of the right upper quadrant showing normal size liver. The portal triads appear somewhat prominent. This finding may be seen in hepatitis. Correlation with laboratory tests may be helpful. The pancreas and right kidney appear unremarkable. The gallbladder appears normal. No biliary ductal dilatation. The common hepatic duct measures 2 mm in diameter. Impression: Slightly prominent portal triads which may be a normal variant. No gallstones biliary ductal dilatation or liver masses. See above. Angela Eubanks MD IMG US ORDERABLES documented in this encounter Visit Diagnoses Not on filedocumented in this encounter
[2024-06-10 16:04] LABS: FREE T4 0.94 ng/dL (0.76-1.46)
[2024-06-11 10:14] LABS: Thyroglobulin Antibody 137 U/mL (<=60); Thyroperoxidase Antibody >1300 U/mL (<=60)
== END 2024-06-10 13:52 | disposition home or self-care (01) ==
LOC: NCHCN 13:51
PROVIDERS: PCP Family Medicine; Visit Provider Family Medicine
DX: E03.9 Hypothyroidism, unspecified (principal)
CPT/HCPCS: 86376; 84439; 84443

== ENCOUNTER 2024-07-21 03:07 | Outpatient (CLI) | payer BC, SELFPAY ==
--- OUTSIDE RECORDS SUMMARY | 2024-07-21 03:16 | XMS_ITS | Clinical Summary ---
Author Organization [facility] Address [address] [place] [address] Care Team Providers Care Family Intervention Specialist Name Role Phone Rita Quiroga MD Primary Care Provider [phone] Allergies No known active allergies Medications Medication [...] reflux disease 05/24/2009 Overview: Since high school. Encounters Date Type Department Care Team Description 06/10/2024 Lab Requisition [facility] Pathology & Laboratory Medicine - [address] [address] Outr Resulting Lab, Provider from Last 3 Months Medical History Medical History Date Comments Anxiety [...] 1 1 Date Outcome GA Total Labor Labor/2nd/3rd Weight Sex Type Anes PTL Kiersten A1 [...] - 19+ 3-dose series) 03/24 COVID-19 Vaccine (1 - 2023-24 season) 2023 Hepatitis C Screen Completed 03/10/2024 Medical Devices Implanted Type Area Mica Splitter Device Identifier Shelf Expiration Date Model / Serial / Lot Paragard Iud-Mr Safe To 3t Description:Per Dr. Dyer's office pt has a Paraguard IUD. These are MRI Safe to 3T. ECW 01/17/12 Procedures Procedure Name Priority Date/Time Associated Diagnosis Comments THYROID ANTIBODIES Routine 06/10/2024 10 :30 EDT HEPATITIS C AB W REFLEX TO HCV RNA BY PCR Routine 03/10/2024 16:00 EDT from Last 3 Months or Most Recently Relevant to Health Maintenance Results * (ABNORMAL) THYROID ANTIBODIES (06/10/2024 10:30 EDT) Anti-Thyroglobulin 137(H) <=60 U/mL 2023 10:[address] [facility] Thyroperoxidase Ab >1,300(H) <=60 U/mL 2023 10:[address] [facility] Blood VENOUS BLOOD / Unknown 06/10/2024 10:30 EDT 06/10/2024 22:43 EDT Provider Outr Resulting Lab CHEMISTRY & BLOOD GAS ORDERABLES Performing Organization Address City/[facility]/ZIP Co de Phone Number [facility] [address] [place] [phone] * HEPATITIS C AB W REFLEX TO HCV RNA BY PCR (03/10/2024 16:00 EDT) Hep C Antibody Negative Negative 03/11/2024 19:[address] [facility] Blood VENOUS BLOOD / Unknown 03/10/2024 16:00 EDT 03/11/2024 17:31 EDT Provider Outr Resulting Lab CHEMISTRY & BLOOD GAS ORDERABLES [facility] [address] [place] [address] from Last 3 Months or Most Recently Relevant to Health Maintenance Care Teams Family Intervention Specialist Relationship Specialty Start Date End Date Rita Quiroga MD [address] [place] [phone] PCP - General 04/13/17
--- OUTSIDE RECORDS SUMMARY | 2024-07-21 03:16 | XMS_ITS | Encounter Summary ---
Author Organization [facility] Address [address] [place] [address] Care Team Providers Care Senior Auditor Name Role Phone Rita Quiroga MD Primary Care Provider [phone] Encounter Details Date Type Department Care Team (Late st Contact Info) Description 06/10/2024 Lab Requisition [facility] Pathology & Laboratory Medicine - [address] [address] Outr Resulting Lab, Provider Social History Tobacco [...] THYROID ANTIBODIES Routine 06/10/2024 10 :30 EDT documented in this encounter Results * (ABNORMAL) THYROID ANTIBODIES (06/10/2024 10:30 EDT) Anti-Thyroglobulin 137(H) <=60 U/mL 2023 10:10 EDT [facility] Thyroperoxidase Ab >1,300(H) <=60 U/mL 2023 10:10 EDT [facility] Blood VENOUS BLOOD / Unknown 06/10/2024 10:30 EDT 06/10/2024 22:43 EDT Provider Outr Resulting Lab CHEMISTRY & BLOOD GAS ORDERABLES [facility] [address] [place] [address] documented in this encounter Visit Diagnoses Not on filedocumented in this encounter Care Teams Senior Auditor Relationship Specialty Start Date End Date Rita Quiroga MD [address] [place] [phone] PCP - General 04/13/17 documented as of this encounter
--- OUTSIDE RECORDS SUMMARY | 2024-07-21 03:16 | XMS_ITS | Encounter Summary ---
Author Organization [facility] Address [address] [place] [address] Care Team Providers Care Subeditor Name Role Phone Rita Quiroga MD Primary Care Provider [phone] Encounter Details Date Type Department Care Team (Late st Contact Info) Description 03/15/2022 Lab Requisition [facility] Pathology & Laboratory Medicine - [address] [address] Outr Resulting Lab, Provider Social History Tobacco [...] Outr Resulting Lab MICROBIOLOGY - GENERAL ORDERABLES [facility] [address] [place] [address] * COVID-19 TESTING (03/14/2022 13:20 EDT) COVID-19 rt-PCR Result Negative Negative 03/16/2022 10:37 EDT [facility] Comment: This test has [...] performed using the james SARS-CoV-2 assay ([employer] on the James 6800 System Performing Lab [address] [facility] Lab 03/16/2022 10:37 EDT [facility] Swab 03/14/2022 13:2 0 EDT 03/15/2022 16:23 EDT Provider Outr Resulting Lab MICROBIOLOGY - GENERAL ORDERABLES [facility] [address] [place] [address] documented in this encounter Visit Diagnoses Not on filedocumented in this encounter Care Teams Subeditor Relationship Specialty Start Date End Date Rita Quiroga MD [address] [place] [phone] PCP - General 04/13/17 documented as of this encounter
--- OUTSIDE RECORDS SUMMARY | 2024-07-21 03:16 | XMS_ITS | Encounter Summary ---
Author Organization [facility] Address [address] [place] [address] Care Team Providers Care Interventional Neuroradiologist Name Role Phone Rita Quiroga MD Primary Care Provider [phone] Encounter Details Date Type Department Care Team (Late Contact Info) Description 12/11/2017 Phlebotomy Only [address] [address] Hiv Counselor, Outpatient Abnormal uterine bleeding (Primary Dx) Social [...] Preg <5 <5 mIU/ml 12/11/2017 12:50 EST [facility] Comment: Reference Range: Negative = <5 Indeterminate = 5-25 recommend repeat in 48 hours. Positive = >25 Blood specimen (specimen) BLOOD SPECIMEN / Unknown 12/11/2017 12:04 EST 12/11/2017 12:12 EST Jenifer Baker MD CHEMISTRY & BLOO D GAS ORDERABLES [facility] [address] [place] [address] documented in this encounter Visit Diagnoses Diagnosis Abnormal uterine bleeding- Primary Unspecified disorder of menstruation and other abnormal bleeding from female genital tract documented in this encounter Care Teams Interventional Neuroradiologist Relationship Specialty Start Date End Date Rita Quiroga MD [address] [place] [phone] PCP - General 04/13/17 documented as of this encounter
--- OUTSIDE RECORDS SUMMARY | 2024-07-21 03:16 | XMS_ITS | Continuity of Care Document ---
Author Organization [place] - [facility] Address [address] [place] [address] Assessment No assessment recorded. Plan of Treatment Reminders Order Date Submit Date Provider Last Modified By Organization Details Last Modified Time Details Appointments Annual Wellness Exam 30 2024 02:20P M Not available Not available Not available Lab TSH, serum, reflex free T4 2023 024 [facility] (Registration ), [address] [place] [address] [place], [address], 06/13/2024 16:45:10 thyroglob ulin Ab, serum [address] [facility] [address] [facility] (Registration ), [address] [place] [address] [place], [address], 06/24/2024 09:59:58 thyropero xidase Ab, serum 2023 024 [facility] (Registration ), [address] [place] [address] [place], [address], 06/13/2024 16:44:45 Referral None recorded. Procedures None recorded. Surgeries None recorded. Imaging None recorded. Medication Orders None recorded. Patient TargetsNo targets recorded. Patient InstructionsNo instructions recorded. Reason for Referral Dancer Or Choreographer Referral for Irritable bowel syndrome loose stool daily, often crampy, IBS episodes are more frequent, Referring Physician: Rita Liu, Family Medicine, Encounter Date: 03/26/2024 Problems Name Status Onset Date Resolution Date Notes Provider Name and Address Organization Details Recorded Time Epidermoid cyst of skin Completed 201405/30/2015 Problem Code: L72.3; Problem Code Type: ICD-10; Not Available [facility] 3 04:48:05 Fatigue Completed 201505/21/2016 Problem Code: R53.83; Problem Code Type: ICD-10; Not Available [facility] 3 04:48:05 Disorder of skin and/or subcutaneous tissue Completed 201508/29/2016 07/05/2016 - Comments only - Rita Liu MD - pper her request, she is referred to dermatology. Problem Code: L98.9; Problem Code Type: ICD-10; Not Available [facility] 3 04:48:05 Traumatic or non-traumatic injury Completed 201507/26/2016 07/05/2016 - Comments only - Rita Liu MD - Of her foot, no evidence of fracture, simply monitoring for now. Problem Code: T14.8; Problem Code Type: ICD-10; Not Available [facility] 3 04:48:05 Localized enlarged lymph nodes Completed 201507/26/2016 07/05/2016 - Comments only - Rita Liu MD - This is not diffuse, has been only present for a few days, and is tender, most likely a reactive lymphadenopat hy. Return to clinic if she develops diffuse lymphadenopat hy Problem Code: R59.0; Problem Code Type: ICD-10; Not Available [facility] 3 04:48:05 Acute upper respiratory infection Completed 201611/03/2017 10/20/2017 - Comments only - Rita Liu MD - symptomatic treatment with tylenol or NSAIDs, discussed natural history of viral URI, sytmpoms up to 10-14 days. Problem Code: J06.9; Problem Code Type: ICD-10; Not Available [facility] 3 04:48:06 Adult health examination Active [address], [place], [address] , [facility]. 4 22:19:38 Nonulcer dyspepsia Active 2017 PHILIP dahl, [facility], [facility] 4 10:25:18 Allergic rhinitis Completed 201708/27/2023 03/07/2023 - Comments only - Rita Liu MD - Better with singulair, and her cough is much better as well. Does continue to loratadine as well. Problem Code: J30.9; Problem Code Type: ICD-10; Not Available [facility] 3 04:48:06 Chronic tension-type headache Active [address], [place], [address] , [facility] 3 15:42:23 Idiopathic osteoarthriti s Active 2018 fingers MD [address], [place], [address] , [facility] 4 22:20:00 Acute upper respiratory infection Completed 201802/08/2019 01/25/2019 - Comments only - Rita Liu MD - No evidence currently of bacterial superinfectio n, somatic treatment. Written information for trying to avoid sinusitis is written and given. Problem Code: J06.9; Problem Code Type: ICD-10; Not Available [facility] 3 04:48:06 Acute upper respiratory infection Completed 201806/16/2019 Problem Code: J06.9; Problem Code Type: ICD-10; Not Available [facility] 3 04:48:07 Fatigue Completed 201806/16/2019 06/02/2019 - Comments only - Rita Liu MD - Will check CBC. She has been anemic in the past. Problem Code: R53.83; Problem Code Type: ICD-10; Not Available [facility] 3 04:48:07 Anemia Completed 201806/16/2019 Problem Code: D64.9; Problem Code Type: ICD-10; Not Available [facility] 3 04:48:07 Non-suppurati ve otitis media Completed 201806/16/2019 06/02/2019 - Comments only - Rita Liu MD - If symptoms worsen, I gave her a written prescription for amoxicillin 500 3 times daily to fill. Problem Code: H65.92; Problem Code Type: ICD-10; Not Available [facility] 3 04:48:07 Tinnitus of left ear Active 2018 ENT/hearing evaluation normal 2019 RITA LIU MD [facility] [address], [place], [address] [facility]. 4 22:18:27 Neck pain Completed 201811/17/2019 11/03/2019 - Comments only - Rita Liu MD - Referral to physical therapy Problem Code: M54.2; Problem Code Type: ICD-10; Not Available [facility] 3 04:48:07 Cough Completed 201812/13/2019 11/29/2019 - Comments only - Shelia Mary Gold CLOCKMAKER - Likely due to post-nasal drip and [...] R05; Problem Code Type: ICD-10; Not Available [facility] 3 04:48:08 Asteatosis cutis Completed 201812/13/2019 11/29/2019 - Comments only - Shelia Mary Gold CLOCKMAKER - Due to history of eczema as a child and current presentation, likely eczema. Encouraged use of emollient cream and protecting from cold air. Problem Code: L85.3; Problem Code Type: ICD-10; Not Available [facility] 3 04:48:08 Mild intermittent asthma Active 2019 PHILIP dahl [facility]. 4 10:25:14 Contraception care management Active 2019 PHILIP dahl [facility]. 4 10:22:54 Left upper quadrant pain Completed 202009/12/2021 08/29/2021 - Comments only - Rita Liu MD - With perhaps a bit of nausea. Labs were drawn today including liver function tests and lipase, will get an abdominal ultrasound, and given possibility that this is some atypical reflux, will start omeprazole 20 mg daily. She prefers to get this [id number] ter. Problem Code: R10.12; Problem Code Type: ICD-10; Not Available [facility] 3 04:48:08 Nausea Completed 202009/12/2021 Problem Code: R11.0; Problem Code Type: ICD-10; Not Available [facility] 3 04:48:08 Palpitations Active 2021 reassuring holter monitors 12/2021 and 10/2023- PAC and PVCs metoprolol 10/2023 RITA LIU MD [address], [place], [address] , [facility] 4 22:21:38 Irritable bowel syndrome Active 2022 PHILIP dahl [facility] 4 10:25:02 Acute vaginitis Completed 202206/30/2023 06/16/2023 - Comments only - Rita Liu MD - vaginal screen obtained today. Problem Code: N76.0; Problem Code Type: ICD-10; Not Available [facility] 3 04:48:09 Anxiety disorder Active 2022 PHILIP dahl [facility] 4 10:25:50 Pelvic and perineal pain Completed 202003/07/2023 Problem Code: R10.2; Problem Code Type: ICD-10; Not Available [facility] 3 04:48:10 Gastroesophag eal reflux disease without esophagitis Completed 201708/27/2023 06/02/2019 - Comments only - Rita Liu MD - Continue with ranitidine. Problem Code: K21.9; Problem Code Type: ICD-10; Not Available [facility] 3 04:48:10 Pain of left knee joint Completed 201809/13/2020 Problem Code: M25.562; Problem Code Type: ICD-10; Not Available [facility] 3 04:48:10 Bilateral disorder of Eustachian tubes Completed 201803/15/2020 Problem Code: H69.83; Problem Code Type: ICD-10; Not Available [facility] 3 04:48:10 Pain of left wrist Completed 202003/07/2023 Problem Code: M25.532; Problem Code Type: ICD-10; Not Available [facility] 3 04:48:10 Pain of right shoulder joint Completed 201709/13/2020 Problem Code: M25.511; Problem Code Type: ICD-10; Not Available [facility] 3 04:48:11 Vaginal bleeding Completed 201704/30/2018 Not Available [facility] 3 04:48:11 Family history of hemochromatos is Completed 201508/27/2023 RITA LIU MD [facility] [address], [place], [address] , [facility] 4 22:16:04 Health condition feared but not present Completed 202206/16/2023 Problem Code: Z71.1; Problem Code Type: ICD-10; Not Available [facility] 3 04:48:11 Acute upper respiratory infection Completed 202103/07/2023 Problem Code: J06.9; Problem Code Type: ICD-10; Not Available [facility] 3 04:48:11 Uncomplicated mild persistent asthma [...] J45.30; Problem Code Type: ICD-10; Not Available [facility] 3 04:48:12 History of Lyme disease Active 2023 PHILIP WELDON nabila, [facility] 4 10:24:38 Rhinitis Active 2017 allergic MD Fabian [address], [address] 4 22:17:08 Tension-type headache Active 2018 Stormy Lau nabila, [facility] 4 14:03:32 Family history of hemochromatos is Active [address], [address] 4 22:16:04 Past history of ectopic Active 2016 while on paraguard, treated with medications. MD Fabian [address], [address] 4 22:16:57 Recurrent major depression Active 2016 [address], [address] 4 22:19:29 Subclinical hypothyroidis m Active 2022 MD [address], [address] 4 22:28:28 Problem Notes None recorded. Medical [...] 1 tablet every day by oral route. 07/19 completed Not Available Not Available Not Available alprazola m 0.25 mg tablet Take 1 tablet by mouth once a day as needed for flying. 2023 active Not Available Not Available Not Avai lable benzonata te 100 mg capsule TAKE ONE CAPSULE BY MOUTH THREE TIMES A DAY FOR 10 DAYS 02/18 completed Not Available Not Available Not Available levothyro xine 50 mcg tablet Take 1 tablet every day by oral route. 2023 active Not Available Not Available Not Avai lable pantopraz ole 40 mg tablet,de layed release [...] escitalop jose m 10 mg tablet Take 1 and 1/2 - 2 tablets by mouth every day 2023 active [...] Available Not Avai lable OptiChamb er Fe [facility] spacer USE DIRECTED 03/10 completed Not Available Not Available Not Available Vitals None Recorded Social History Question Answer Notes LastModified by Organization Details LastModified Time Tobacco Smoking Status Never Smoker occassionally in the past NICOLETTE HELTON LPN null, [place] - [facility]. 03/10/2024 15:12:04 Would You Say That, In [...] Recorded Time MMR 07/28/1990 completed Not Available [facility] 05:27:43 MMR 09/27/1998 completed Not Available [facility] 05:27:44 DTaP, unspecified formulation 05/13/1994 completed Not Available [facility] 10/10/2023 05:27:44 DTaP, unspecified formulation 1989 completed Not Available [facility] 10/10/2023 05:27:44 DTaP, unspecified formulation 1989 completed Not Available [facility] 10/10/2023 05:27:44 DTaP, unspecified formulation 10/02/1990 completed Not Available [facility] 10/10/2023 05:27:44 DTaP, unspecified formulation 1989 completed Not Available [facility] 10/10/2023 05:27:44 meningococcal ACWY, unspecified formulation 07/02/2007 completed Not Available [facility] 10/10/2023 05:27:44 Tdap 02/08/2011 completed Not Available [facility] 05:27:44 Tdap 08/29/2021 completed Not Available [facility] 05:27:45 HPV, unspecified formulation 04/28/2008 completed Not Available [facility] 10/10/2023 05:27:45 HPV, unspecified formulation 07/02/2007 completed Not Available [facility] 10/10/2023 05:27:45 HPV, unspecified formulation 10/20/2007 completed Not Available [facility] 10/10/2023 05:27:45 Td(adult) unspecified formulation 09/24/2004 completed Not Available [facility] 10/10/2023 05:27:45 Influenza, split virus, quadrivalent, PF 08/29/2021 completed Not Available [facility] 10/10/2023 05:27:45 Influenza, split virus, quadrivalent, PF 09/13/2020 completed Not Available [facility] 10/10/2023 05:27:45 Influenza, MDCK, trivalent, PF 10/11/2015 completed Not Available [facility] 10/10/2023 05:27:45 COVID-19, mRNA, LNP-S, PF, 30 mcg/0.3 mL dose 02/09/2021 completed Not Available [facility] 10/10/2023 05:27:45 COVID-19, mRNA, LNP-S, PF, 30 mcg/0.3 mL dose 03/09/2021 completed Not Available [facility] 10/10/2023 05:27:46 SARS-COV-2 (COVID-19) vaccine, UNSPECIFIED 08/28/2022 completed Not Available [facility] 10/10/2023 05:27:46 SARS-COV-2 (COVID-19) vaccine, UNSPECIFIED 09/24/2021 completed Not Available [facility] 10/10/2023 05:27:46 Hep B, unspecified formulation 07/04/2000 completed Not Available [facility] 10/10/2023 05:27:46 Hep B, unspecified formulation 07/27/1997 completed Not Available [facility] 10/10/2023 05:27:46 Hep B, unspecified formulation 10/08/1999 completed Not Available [facility] 10/10/2023 05:27:46 Hep A, unspecified formulation 12/03/2006 completed Not Available [facility] 10/10/2023 05:27:46 Hep A, unspecified formulation 05/02/2005 completed Not Available [facility] 10/10/2023 05:27:46 influenza, unspecified formulation 09/10/2018 completed Not Available [facility] 10/10/2023 05:27:46 influenza, unspecified formulation 09/14/2019 completed Not Available [facility] 10/10/2023 05:27:47 polio, unspecified formulation 05/03/1994 completed Not Available [facility] 10/10/2023 05:27:47 polio, unspecified formulation 1989 completed Not Available [facility] 10/10/2023 05:27:47 polio, unspecified formulation 1989 completed Not Available [facility] 10/10/2023 05:27:47 COVID-19, mRNA, LNP-S, PF, sb-sucrose, 30 mcg/0.3 mL 09/24/2023 completed Not Available [facility] 12/12/2023 05:33:14 Past Encounters Encounter ID Performer Location Encounter Start Date Encounter Closed Date Diagnosis/Indication Diagnosis SNOMED-CT Code [id number] Lynne Drake RN [facility] [address] [place] [address] 06/10/2024 10:23:38 06/10/2024 10:36:34 Hypothyroidism [id number] Health Concerns Section Related Observation LastModified by Organization Detai ls LastModified Time None Recorded Concern Status LastModified by Organization Details LastModified Time None Recorded Payers Encounter Date Sequence Insurance Name Policy Number Policy Cruz Covered Member ID Cruz Member ID Guarantor Name 06/10/2024 1 [place] [employer] [place] Roxanne Beltran [id number] Roxanne Beltran OBGyn Episode No OBEpisode recorded.
--- OUTSIDE RECORDS SUMMARY | 2024-07-21 03:16 | XMS_ITS | Encounter Summary ---
Author Organization [facility] Address [address] [place] [address] Care Team Providers Care Residential Substance Abuse Counselor Name Role Phone Rita Quiroga MD Primary Care Provider [phone] Encounter Details Date Type Department Care Team (Late st Contact Info) Description 02/13/2022 Lab Requisition [facility] Pathology & Laboratory Medicine - [address] [address] John Chavez MD [address] [place] [phone] Left upper quadrant pain; Heartburn; Personal [...] explore management options, if applicable. 02/18/2022 14:03 [facility] Final Diagnosis A. DUODENUM, BIOPSY: - No significant pathologic abnormality B. DUODENUM, BULB, BIOPSY: - No significant pathologic abnormality C. STOMACH, ANTRUM, BIOPSY: - No significant pathologic abnormality D. STOMACH, BODY, BIOPSY: - No significant pathologic abnormality 02/18/2022 14:03 [facility] Attestation By the signature below, the attending physician certifies that they have 1) personally conducted a gross and/or microscopic examination of the described specimen(s), and/or personally interpreted the results of laboratory testing of the described specimen(s), and 2) personally rendered or confirmed the above diagnosis. 02/18/2022 14:03 [facility] at 1403 Clinical History History of GERD, pyrosis, LUQ pain; clinical diagnosis code: R10.12, R12, Z87.19 02/18/2022 14:03 [facility] Gross Description A. Received in [...] HAJA MORA(ASCP) 02/14/2022 10:16 02/18/2022 14:03 EDT [facility] Performing Lab [facility] 02/18/2022 14:03 EDT [facility] Scanned Images 02/18/2022 14:03 EDT [facility] Tissue ENTIRE STOMACH / Unknown 02/13/2022 9:55 EDT 02/13/2022 23:44 EDT Tissue specimen (specimen) STRUCTURE OF SMALL INTESTINE / Unknown 02/13/2022 9:55 EDT 02/13/2022 23:44 EDT Tissue specimen (specimen) STOMACH STRUCTURE / Unknown 02/13/2022 9:55 EDT 02/13/2022 23:44 EDT Tissue specimen (specimen) STOMACH STRUCTURE / Unknown 02/13/2022 9:55 EDT 02/13/2022 23:44 EDT John Chavez MD PATHOLOGY ORD ERABLES [facility] [address] [place] [address] documented in this encounter Visit Diagnoses Diagnosis Left upper quadrant pain Abdominal pain, left upper quadrant Heartburn Personal history of other diseases of the digestive system documented in this encounter Care Teams Residential Substance Abuse Counselor Relationship Specialty Start Date End Date Rita Quiroga MD [address] [place] [phone] PCP - General 04/13/17 documented as of this encounter
--- OUTSIDE RECORDS SUMMARY | 2024-07-21 03:16 | XMS_ITS | Encounter Summary ---
Author Organization [facility] Address [address] [place] [address] Care Team Providers Care Professor Of Counseling Name Role Phone Rita Quiroga MD Primary Care Provider [phone] Reason for Visit * Reason Comments Contraception Encounter Details Date Type Department Care Team ([facility] Contact Info) Description 12/11/2017 15:00 EST Office Visit [facility] Women's Services - [address] [id number] Jenifer Baker MD [address] [place] [address] [address] [place] [address] General counseling and advice for [...] Laura Davis MD - 12/11/2017 1500 EST quality improvement manager Note Chief Complaint: desires contraceptive counseling Subjective: [...] or tenderness Extremities: warm, well-perfused, non-tender Exam sales development director: Dr. Baker Assessment/Plan: Roxanne Beltran is a [...] separate procedure note. Laura Davis MD PGY-3 [facility] Obstetrics and Gynecology Pager: [phone] Attestation statement: I saw and examined the [...] 7cm. Mirena IUD was placed according to mold clamper's instructions. Tenaculum was removed and excellent hemostasis was noted. The IUD strings were trimmed to 4cm. The speculum was then removed. Date of insertion: 12/11/2017 IUD Lot #: [id number] Nexplanon was palpated in the LUE. The [...] throughout the procedures. Laura Davis MD PGY-3 [facility] Obstetrics and Gynecology Pager: [phone] documented in this encounter Plan of Treatment [...] mouth. added in this encounter Care Teams Professor Of Counseling Relationship Specialty Start Date End Date Rita Quiroga MD [address] [place] [phone] PCP - General 04/13/17 documented as of this encounter
--- OUTSIDE RECORDS SUMMARY | 2024-07-21 03:16 | XMS_ITS | Encounter Summary ---
Author Organization [facility] Address [address] [place] [address] Care Team Providers Care Health Care / Medical Job Titles Name Role Phone Rita Quiroga MD Primary Care Provider [phone] Encounter Details Date Type Department Care Team (Late st Contact Info) Description 06/20/2023 Lab Requisition [facility] Pathology & Laboratory Medicine - [address] [address] Outr Resulting Lab, Provider Social History Tobacco [...] 1, PCR Negative Negative 06/21/2023 14:50 EDT [facility] Herpes Simplex Virus Molecular Detection 2, PCR Negative Negative 06/21/2023 14:50 EDT [facility] Swab ENTIRE VAGINA / Unknown 06/20/2023 11:45 EDT 06/21/2023 11:43 EDT Provider Outr Resulting Lab MICROBIOLOGY - GENERAL ORDERABLES Performing Organization Address City/State/[facility] Co de Phone Number [facility] [address] [place] [address] documented in this encounter Visit Diagnoses Not on filedocumented in this encounter Care Teams Health Care / Medical Job Titles Relationship Specialty Start Date End Date Rita Quiroga MD [address] [place] [phone] PCP - General 04/13/17 documented as of this encounter
--- OUTSIDE RECORDS SUMMARY | 2024-07-21 03:16 | XMS_ITS | Clinical Summary ---
Author Organization Count Includes [facility] Address [facility] [place] [address] Care Team Providers Care Geometrician Name Role Phone Rita Quiroga MD Primary Care Provider [phone] Allergies No known active allergies Medications Medication [...] - Influenza standard series) 08/01/2024 Care Teams Geometrician Relationship Specialty Start Date End Date Rita Quiroga MD [facility] SRINI SU[facility] [address] [place] [address] PCP - General Family Medicine 06/13/20
--- OUTSIDE RECORDS SUMMARY | 2024-07-21 03:16 | XMS_ITS | Encounter Summary ---
Author Organization [facility] Address [address] [place] [address] Care Team Providers Care Tower Operator Name Role Phone Rita Quiroga MD Primary Care Provider [phone] Encounter Details Date Type Department Care Team (Late st Contact Info) Description 03/11/2024 Lab Requisition [facility] Pathology & Laboratory Medicine - [address] [address] Outr Resulting Lab, Provider Social History Tobacco [...] Resulting Lab CHEMISTRY & BLOOD GAS ORDERABLES [facility] [address] [place], [place] [phone] documented in this encounter Visit Diagnoses Not on filedocumented in this encounter Care Teams Tower Operator Relationship Specialty Start Date End Date Rita Quiroga MD [address] [place] [place] [phone] PCP - General 04/13/17 documented as of this encounter
--- OUTSIDE RECORDS SUMMARY | 2024-07-21 03:16 | XMS_ITS | Encounter Summary ---
Author Organization [facility] Address [address] [place] [address] Care Team Providers Care Fleshing Machine Operator Name Role Phone Rita Quiroga MD Primary Care Provider [phone] Reason for Visit * Reason Onset Date Comments Appointment Related 12/09/2017 Encounter Details Date Type Department Care Team (Late st Contact Info) Description 12/09/2017 Telephone [facility] Women's Services - [address] [address] Christy Stevens RN Appointment Related Social History [...] Preg <5 <5 mIU/ml 12/11/2017 12:50 EST [facility] Comment: Reference Range: Negative = <5 Indeterminate = 5-25 recommend repeat in 48 hours. Positive = >25 Blood specimen (specimen) BLOOD SPECIMEN / Unknown 12/11/2017 12:04 EST 12/11/2017 12:12 EST Jenifer Baker MD CHEMISTRY & BLOO D GAS ORDERABLES [facility] [address] [place] [address] documented in this encounter Visit Diagnoses Diagnosis Abnormal uterine bleeding- Primary Unspecified disorder of menstruation and other abnormal bleeding from female genital tract documented in this encounter Care Teams Fleshing Machine Operator Relationship Specialty Start Date End Date Rita Quiroga MD [address] [place] [phone] PCP - General 04/13/17 documented as of this encounter
--- OUTSIDE RECORDS SUMMARY | 2024-07-21 03:16 | XMS_ITS | Encounter Summary ---
Author Organization [facility] Address [facility] [place] [address] Care Team Providers Care Nuclear Auxiliary Operator Name Role Phone Rita Quiroga MD Primary Care Provider [phone] Reason for Visit * Reason Comments Skin Check Encounter Details Date Type Department Care Team (Late st Contact Info) Description 06/13/2020 11:30 AM EDT Office Visit Dermatology at [facility] [address] [place] [address] Laura Donovan MD [facility] [place] [address] Solar lentigo; Multiple benign nevi; Melasma; Telangiectasia [...] Melanoma: paternal uncle 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
--- OUTSIDE RECORDS SUMMARY | 2024-07-21 03:16 | XMS_ITS | Encounter Summary ---
Author Organization [facility] Address [address] [place] [address] Care Team Providers Care Fabric Machine Operator Name Role Phone Rita Quiroga MD Primary Care Provider [phone] Reason for Visit * Reason Onset Date Comments Contraception 11/21/2017 Encounter Details Date Type Department Care Team (Late Contact Info) Description 11/21/2017 Telephone [facility] Women's Services - [address] [address] Christy Stevens RN Contraception Social History Tobacco [...] Stevens RN - 11/21/2017 1301 EST Roxanne [facility] rRTCB has questions about Nexplanon. LV for Roxanne, advised returning her call. documented in this encounter Plan of Treatment Not on file documented as of this encounter Visit Diagnoses Not on filedocumented in this encounter Care Teams Fabric Machine Operator Relationship Specialty Start Date End Date Rita Quiroga MD [address] [place] [phone] PCP - General 04/13/17 documented as of this encounter
--- OUTSIDE RECORDS SUMMARY | 2024-07-21 03:16 | XMS_ITS | Encounter Summary ---
Author Organization [facility] Address [address] [place] [address] Care Team Providers Care Black Powder Glazing Operator Name Role Phone Rita Quiroga MD Primary Care Provider [phone] Encounter Details Date Type Department Care Team (Late st Contact Info) Description 02/25/2023 Lab Requisition [facility] Pathology & Laboratory Medicine - [address] [address] Boo Viera MD [address] [place] [phone] Encounter for other general examination Social [...] explore management options, if applicable. 03/04/2023 16:02 [facility] Final Diagnosis A. SOFT TISSUE OF WRIST, LEFT DORSAL, MASS, EXCISION: - Ganglion cyst. 03/04/2023 16:02 [facility] Attestation There was significant resident/fellow involvement in the diagnostic evaluation of this case. By the signature below, the attending physician certifies that they have personally conducted a gross and/or microscopic examination of the described specimens and rendered or confirmed the above diagnosis. 03/04/2023 16:02 [facility] at 1602 Clinical History Left wrist pain 03/04/2023 16:02 [facility] Gross Description A. Received [...] is entirely submitted intact in A1. HAJA BARNETT([facility]) 02/26/2023 10:57 03/04/2023 16:02 [facility] Resident/Ant w: Kierra Webb DO 03/04/2023 16:02 EDT [facility] Performing Lab [facility] 03/04/2023 16:02 T [facility] Scanned Images 03/04/2023 16:02 [facility] Tissue SOFT TISSUE / Unknown 02/25/2023 10:36 EDT 02/26/2023 9:05 EDT Boo Viera MD PATHOLOGY ORDERABLES [facility] [address] [place] [id number] documented in this encounter Visit Diagnoses Diagnosis Encounter for other general examination documented in this encounter Care Teams Black Powder Glazing Operator Relationship Specialty Start Date End Date Rita Quiroga MD [address] [place] [phone] PCP - General 04/13/17 documented as of this encounter
--- OUTSIDE RECORDS SUMMARY | 2024-07-21 03:16 | XMS_ITS | Referral Summary ---
Author Organization [facility] Address [address] [place] [address] Care Team Providers Care Service Technician Name Role Phone Rita Quiroga MD Primary Care Provider [phone] Encounters Date Type Department Care Team Description 06/10/2024 Lab Requisition [facility] Pathology & Laboratory Medicine - [facility] [address] [place] [address] Outr Resulting Lab, Provider from Last 3 Months Allergies No known active allergies Medications Medication [...] on file Medical Devices Implanted Type Area Sprinkling System Installer Device Identifier Shelf Expiration Date Model / [...] Anti-Thyroglobulin 137(H) <=60 U/mL 2023 10:10 EDT [facility] Thyroperoxidase Ab >1,300(H) <=60 U/mL 2023 10:10 EDT [facility] Blood VENOUS BLOOD / Unknown 06/10/2024 10:30 EDT 06/10/2024 22:43 EDT Provider Outr Resulting Lab CHEMISTRY & BLOOD GAS ORDERABLES [facility] [address] [place], [place] [phone] * HEPATITIS C AB W REFLEX TO HCV RNA BY PCR (03/10/2024 16:00 EDT) Hep C Antibody Negative Negative 03/11/2024 19:02 EDT [facility] Blood VENOUS BLOOD / Unknown 03/10/2024 16:00 EDT 03/11/2024 17:31 EDT Provider Outr Resulting Lab CHEMISTRY & BLOOD GAS ORDERABLES [facility] [address] [place], [place] [phone] from Last 3 Months or Most Recently Relevant to Health Maintenance Care Teams Service Technician Relationship Specialty Start Date End Date Rita Quiroga MD [address] [place] [phone] PCP - General 04/13/17
--- OUTSIDE RECORDS SUMMARY | 2024-07-21 03:16 | XMS_ITS | Encounter Summary ---
Author Organization [facility] Address [address] [place] [address] Care Team Providers Care Area Manager Name Role Phone Rita Quiroga MD Primary Care Provider [phone] Encounter Details Date Type Department Care Team (Late st Contact Info) Description 03/11/2024 Lab Requisition [facility] Pathology & Laboratory Medicine - [address] [address] Outr Resulting Lab, Provider Social History Tobacco [...] 4th Generation Negative Negative 03/11/2024 19:04 EDT [facility] Comment:If acute HIV-1 infec tion is suspected in a high risk patient, submit plasma specimen for HIV-1 RNA quantitation test. Blood VENOUS BLOOD / Unknown 03/10/2024 16:00 EDT 03/11/2024 17:31 EDT Narrative [facility] - 03/11/2024 19:04 EDT Fourth Generation assay performed on the Siemens [employer] XPT. Provider Outr Resulting Lab IMMUNOLOGY A ND SEROLOGY ORDERABLES [facility] [address] [place] [address] documented in this encounter Visit Diagnoses Not on filedocumented in this encounter Care Teams Area Manager Relationship Specialty Start Date End Date Rita Quiroga MD [address] [place] [phone] PCP - General 04/13/17 documented as of this encounter
--- OUTSIDE RECORDS SUMMARY | 2024-07-21 03:16 | XMS_ITS | Data Portability ---
Author Organization [facility] Address [address] [place] [address] Assessment No assessment recorded. Plan of Treatment Reminders Order Date Submit Date Provider Last Modified By Organization Details Last Modified Time Details Appointments Annual Wellness Exam 30 2024 02:20P M Not available Not available Not available Lab TSH, serum, reflex free T4 2023 024 [facility] (Registration ), [address] [place] [address] [place], [address], 03/11/2024 13:20:04 CBC w/ auto diff 2023 024 [facility] (Registration ), [address] [place] [address] [place], [address], 03/10/2024 20:24:03 HIV (1+2) Ab screen, serum 2023 024 [facility] (Registration ), [address] [place] [address] [place], [address], 03/12/2024 09:14:21 hepatitis C virus Ab, serum 2023 024 [facility] (Registration ), [address] [place] [address] [place], [address], 03/12/2024 09:14:01 TSH, serum, reflex free T4 2023 024 [facility] (Registration ), [address] [place] [address] [place], [address], 06/13/2024 16:45:10 thyroglob ulin Ab, serum [email or web address] [place] [address] Laboratory (Registration ), [address] [place] [address] [place], [address], 06/24/2024 09:59:58 thyropero xidase Ab, serum 2023 024 [facility] (Registration ), [address] [place] [address] [place], [address], 06/13/2024 16:44:45 Referral None recorded. Procedures None recorded. Surgeries None recorded. Imaging None recorded. Medication Orders albuterol sulfate HFA 90 mcg/actua tion aerosol inhaler 2022 023 [email or web address] [facility], [address] [place], [address], 03/10/2024 15:07:17 prednison e 20 mg tablet 2022 023 [facility], [address] [place], [address], 02/19/2024 09:20:57 benzonata te 100 mg capsule 2022 023 [email or web address] [facility], [address] [place] [address], [address], 02/19/2024 09:29:24 metoprolo l tartrate 25 mg tablet 2023 024 [facility], [address] [place] [address], [address], [address], 03/10/2024 16:53:[address] 10 mg tablet 2023 024 [facility], [address] [place] [address], [facility] [address], [address], 03/10/2024 16:53:17 escitalop jose m 10 mg tablet 2023 [facility], [address] [facility], [facility] [address], [place], [address], 03/10/2024 16:53:13 alprazola m 0.25 mg tablet 2023 024 [facility], [address] [facility], [facility] 7, [place], [address], 03/10/2024 16:53:18 Patient TargetsNo targets recorded. Patient Instructions Encounter Date Encounter Id Patient Instructions Last Modified By Organization Details Last Modified Time 11/14/2023 [id number] Start ALBUTEROL 2 puffs every 4-6 hours for cough. Can use BENZONOTATE caps as needed up to 3 times a day. If not better in a few days,start the prednisone 20 mg tablets, 2 for 5 days, then 1 for 5 days. Can try the metoprolol either daily or as needed. [email or web address] Not available 11/14/2023 15:57:59 02/19/2024 [id number] General measures we can take to minimize [...] prolonged asthma exacerbations caused by respiratory illness. [email or web address] Not available 02/19/2024 09:27:11 Reason for Referral Last Dipper Referral for Irritable bowel syndrome loose stool daily, often crampy, IBS episodes are more frequent, Referring Physician: Rita Quiroga, Family Medicine, Encounter Date: 03/26/2024 Results Created Date Observation Date Name Description Value Unit Range Abnormal Flag LastModifiedBy Organization Detail LastModifiedTime 03/10/20 24 03/10/2024 COMPL ETE BLOOD COUNT W/DIF F WBC 7.23 10_3/ uL 4.4-10 .8 normal Not Available [address] [place], [address] 03/10/2024 20:24:03 03/10/20 24 03/10/2024 COMPL ETE BLOOD COUNT W/DIF F RBC 4.33 10_6/ uL 3.93-5 .22 normal Not Available [address] [place], [address] 03/10/2024 20:24:03 03/10/20 24 03/10/2024 COMPL ETE BLOOD COUNT W/DIF F HGB 12.7 g/dL 11.2-1 5.7 normal Not Available [address] [place], [address] 03/10/2024 20:24:03 03/10/20 24 03/10/2024 COMPL ETE BLOOD COUNT W/DIF F HCT 38.9 % 36.0-4 6.0 normal Not Available [address] [place], [address] 03/10/2024 20:24:03 03/10/20 24 03/10/2024 COMPL ETE BLOOD COUNT W/DIF F MCV 90 fL 80-95 normal Not Available [address] [place], [address] 03/10/2024 20:24:03 03/10/20 24 03/10/2024 COMPL ETE BLOOD COUNT W/DIF F MCH 29.3 pg 27.0-3 3.0 normal Not Available [address] [place], [address] 03/10/2024 20:24:03 03/10/20 24 03/10/2024 COMPL ETE BLOOD COUNT W/DIF F MCHC 32.6 % 32.0-3 6.0 normal Not Available [address] [place], [address] 03/10/2024 20:24:03 03/10/20 24 03/10/2024 COMPL ETE BLOOD COUNT W/DIF F RDW 12.8 % 11.7-1 4.6 normal Not Available [address] [place], [address] 03/10/2024 20:24:03 03/10/20 24 03/10/2024 COMPL ETE BLOOD COUNT W/DIF F platelet count 293 10_3/ uL 130-40 0 normal Not Available [address] [place], [address] 03/10/2024 20:24:03 03/10/20 24 03/10/2024 COMPL ETE BLOOD COUNT W/DIF F MPV 10.7 fL 8.0-11 .0 normal Not Available [address] [place], [address] 03/10/2024 20:24:03 03/10/20 24 03/10/2024 COMPL ETE BLOOD COUNT W/DIF F neutrophils % 60.3 Not Available [address] [place], [address] 03/10/2024 20:24:03 03/10/20 24 03/10/2024 COMPL ETE BLOOD COUNT W/DIF F lymphocytes % 27.0 Not Available [address] [place], [address] 03/10/2024 20:24:03 03/10/20 24 03/10/2024 COMPL ETE BLOOD COUNT W/DIF F monocytes % 7.9 Not Available [address] [place], [address] 03/10/2024 20:24:03 03/10/20 24 03/10/2024 COMPL ETE BLOOD COUNT W/DIF F eosinophils % 3.9 Not Available [address] [place], [address] 03/10/2024 20:24:03 03/10/20 24 03/10/2024 COMPL ETE BLOOD COUNT W/DIF F basophils % 0.6 Not Available [address] [place], [address] 03/10/2024 20:24:03 03/10/20 24 03/10/2024 COMPL ETE BLOOD COUNT W/DIF F immature grans % 0.3 Not Available [address] [place], [address] 03/10/2024 20:24:03 03/10/20 24 03/10/2024 COMPL ETE BLOOD COUNT W/DIF F nucleated RBC 0.0 % 0.0-0. 3 normal Not Available [address] [place], [address] 03/10/2024 20:24:03 03/10/20 24 03/10/2024 COMPL ETE BLOOD COUNT W/DIF F absolute neutrophil count 4.37 10_3/ uL 1.2-6. 7 normal Not Available [address] [place], [address] 03/10/2024 20:24:03 03/10/20 24 03/10/2024 COMPL ETE BLOOD COUNT W/DIF F absolute lymphocyte count 1.95 10_3/ uL 1.2-3. 4 normal Not Available [address] [place], [address] 03/10/2024 20:24:03 03/10/20 24 03/10/2024 COMPL ETE BLOOD COUNT W/DIF F absolute monocyte count 0.57 10_3/ uL 0.1-0. 8 normal Not Available [address] [place], [address] 03/10/2024 20:24:03 03/10/20 24 03/10/2024 COMPL ETE BLOOD COUNT W/DIF F absolute eosinophil count 0.28 10_3/ uL 0.0-0. 7 normal Not Available [address] [place], [address] 03/10/2024 20:24:03 03/10/20 24 03/10/2024 COMPL ETE BLOOD COUNT W/DIF F absolute basophil count 0.04 10_3/ uL 0.0-0. 2 normal Not Available [address] [place], [address] 03/10/2024 20:24:03 03/10/20 24 03/10/2024 TSH (W/RE F FT4) TSH (w/ref FT4) 6.45 uIU/m L 0.36-3 .74 high Not Available [address] [place], [address] 03/10/2024 20:43:00 03/10/20 24 03/10/2024 TSH (W/RE F FT4) TSH (w/ref FT4) 6.45 uIU/m L 0.36-3 .74 high Not Available [facility] (Registration ) [address] [place] [address] [place], [address], 03/10/2024 21:08:02 03/10/20 24 03/10/2024 FREE T4 free T4 0.89 NG/dL 0.76-1 .46 normal Not Available [address] [place], [address] 03/10/2024 21:08:03 03/10/20 24 03/11/2024 HIV-1 /2 AG AB SCREE N HIV-1/2 Ag Ab screen Negati ve negati ve Not Available [facility] (Registration ) [address] [place] [address] [place], [address], 03/12/2024 09:00:24 03/10/20 24 03/11/2024 HEPAT ITIS C AB W RFLX HCV PCR hepatitis C Ab W rflx HCV PCR Negati ve negati ve Not Available [facility] (Registration ) [address] [place] [address] [place], [address], 03/12/2024 09:00:25 03/29/20 24 03/29/2024 VAGIN AL PATHO GEN SCREE N vaginal pathogen screen Not Available [address] [place], [address] 03/29/2024 21:05:53 06/10/20 24 06/10/2024 TSH (W/RE F FT4) TSH (w/ref FT4) 4.50 uIU/m L 0.36-3 .74 high Not Available [facility] (Registration ) [address] [place] [address] [place], [address], 06/10/2024 15:49:41 06/10/20 24 06/10/2024 TSH (W/RE F FT4) TSH (w/ref FT4) 4.50 uIU/m L 0.36-3 .74 high Not Available [address] [place], [address] 06/10/2024 16:12:29 06/10/20 24 06/10/2024 FREE T4 free T4 0.94 NG/dL 0.76-1 .46 normal Not Available [address] [place], [address] 06/10/2024 16:12:30 06/10/20 24 06/11/2024 THYRO ID ANTIB ODIES thyroglobuli n antibody 137 U/mL <=60 abnormal Not Available [facility] (Registration ) [address] [place] [address] [place], [address], 06/11/2024 16:44:29 06/10/20 24 06/11/2024 THYRO ID ANTIB ODIES thyroperoxid ase antibody >1300 U/mL <=60 abnormal Not Available [facility] (Registration ) [address] [place] [address] [place], [address], 06/11/2024 16:44:29 11/04/20 23 11/04/2023 kellie r monit or Holter Monito r PATIEN T NAME: Ekta Ochoa V UNIT #: [id number] ORDERI NG PROVID ER: Rita Quiroga M.D. ACCOUN T #: [id number] PRIMAR Y CARE PROVID ER: RITA QUIROGA MD DATE/T MICHELLE OF SERVI CE: : 1989 [facility] CLARI LOCATI ON: CARDOP NVT ------ ------ --- APPROV [...] ---- ------ - E-Sign Date: E-Sign Time: 940 [email or web address] [id number] [place], [address] 11/04/2023 12:13:05 Result Notes None recorded. Problems Name Status Onset Date Resolution Date Notes Provider Name and Address Organization Details Recorded Time Epidermoid cyst of skin Completed 201405/30/2015 Problem Code: L72.3; Problem Code Type: ICD-10; Not Available [facility] 3 04:48:05 Fatigue Completed 201505/21/2016 Problem Code: R53.83; Problem Code Type: ICD-10; Not Available [facility] 3 04:48:05 Disorder of skin and/or subcutaneous tissue Completed 201508/29/2016 07/05/2016 - Comments only - Rita Quiroga MD - pper her request, she is referred to dermatology. Problem Code: L98.9; Problem Code Type: ICD-10; Not Available [facility] 3 04:48:05 Traumatic or non-traumatic injury Completed 201507/26/2016 07/05/2016 - Comments only - Rita Quiroga MD - Of her foot, no evidence of fracture, simply monitoring for now. Problem Code: T14.8; Problem Code Type: ICD-10; Not Available [facility] 3 04:48:05 Localized enlarged lymph nodes Completed 201507/26/2016 07/05/2016 - Comments only - Rita Quiroga MD - This is not diffuse, has been only present for a few days, and is tender, most likely a reactive lymphadenopat hy. Return to clinic if she develops diffuse lymphadenopat hy Problem Code: R59.0; Problem Code Type: ICD-10; Not Available [facility] 3 04:48:05 Acute upper respiratory infection Completed 201611/03/2017 10/20/2017 - Comments only - Rita Quiroga MD - symptomatic treatment with tylenol or NSAIDs, discussed natural history of viral URI, sytmpoms up to 10-14 days. Problem Code: J06.9; Problem Code Type: ICD-10; Not Available [facility] 3 04:48:06 Adult health examination Active [address] [place], [address] , [facility] 4 22:19:38 Nonulcer dyspepsia Active 2017 PHILIP dahl, [facility] 4 10:25:18 Allergic rhinitis Completed 201708/27/2023 03/07/2023 - Comments only - Rita Quiroga MD - Better with singulair, and her cough is much better as well. Does continue to loratadine as well. Problem Code: J30.9; Problem Code Type: ICD-10; Not Available [facility] 3 04:48:06 Chronic tension-type headache Active [address], [place], [address] , [facility] 3 15:42:23 Idiopathic osteoarthriti s Active [address], [place], [address] , [facility] 4 22:20:00 Acute upper respiratory infection Completed 201802/08/2019 01/25/2019 - Comments only - Rita Quiroga MD - No evidence currently of bacterial superinfectio n, somatic treatment. Written information for trying to avoid sinusitis is written and given. Problem Code: J06.9; Problem Code Type: ICD-10; Not Available [facility] 3 04:48:06 Acute upper respiratory infection Completed 201806/16/2019 Problem Code: J06.9; Problem Code Type: ICD-10; Not Available [facility] 3 04:48:07 Fatigue Completed 201806/16/2019 06/02/2019 - Comments only - Rita Quiroga MD - Will check CBC. She has been anemic in the past. Problem Code: R53.83; Problem Code Type: ICD-10; Not Available [facility] 3 04:48:07 Anemia Completed 201806/16/2019 Problem Code: D64.9; Problem Code Type: ICD-10; Not Available [facility] 3 04:48:07 Non-suppurati ve otitis media Completed 201806/16/2019 06/02/2019 - Comments only - Rita Quiroga MD - If symptoms worsen, I gave her a written prescription for amoxicillin 500 3 times daily to fill. Problem Code: H65.92; Problem Code Type: ICD-10; Not Available [facility] 3 04:48:07 Tinnitus of left ear Active 2018 ENT/hearing evaluation normal 2019 RITA QUIROGA MD [facility] [address], [place], [address] , [facility] 4 22:18:27 Neck pain Completed 201811/17/2019 11/03/2019 - Comments only - Rita Quiroga MD - Referral to physical therapy Problem Code: M54.2; Problem Code Type: ICD-10; Not Available [facility] 3 04:48:07 Cough Completed 201812/13/2019 11/29/2019 - Comments only - Shelia Mendoza SURGICAL DENTAL ASSISTANT - Likely due to post-nasal drip and [...] R05; Problem Code Type: ICD-10; Not Available [facility] 3 04:48:08 Asteatosis cutis Completed 201812/13/2019 11/29/2019 - Comments only - Shelia Mendoza SURGICAL DENTAL ASSISTANT - Due to history of eczema as a child and current presentation, likely eczema. Encouraged use of emollient cream and protecting from cold air. Problem Code: L85.3; Problem Code Type: ICD-10; Not Available [facility] 3 04:48:08 Mild intermittent asthma Active 2019 PHILIP dahl [facility] 4 10:25:14 Contraception care management Active 2019 PHILIP dahl [facility] 4 10:22:54 Left upper quadrant pain Completed 202009/12/2021 08/29/2021 - Comments only - Rita Quiroga MD - With perhaps a bit of nausea. Labs were drawn today including liver function tests and lipase, will get an abdominal ultrasound, and given possibility that this is some atypical reflux, will start omeprazole 20 mg daily. She prefers to get this [id number] ter. Problem Code: R10.12; Problem Code Type: ICD-10; Not Available [facility] 3 04:48:08 Nausea Completed 202009/12/2021 Problem Code: R11.0; Problem Code Type: ICD-10; Not Available [facility] 3 04:48:08 Palpitations Active 2021 reassuring holter monitors 12/2021 and 10/2023- PAC and PVCs metoprolol 10/[address], [place], [address] , [facility]. 4 22:21:38 Irritable bowel syndrome Active 2022 PHILIP dahl [facility] 4 10:25:02 Acute vaginitis Completed 202206/30/2023 06/16/2023 - Comments only - Rita Quiroga MD - vaginal screen obtained today. Problem Code: N76.0; Problem Code Type: ICD-10; Not Available [facility] 3 04:48:09 Anxiety disorder Active 2022 PHILIP dahl [place] - [facility] 4 10:25:50 Pelvic and perineal pain Completed 202003/07/2023 Problem Code: R10.2; Problem Code Type: ICD-10; Not Available [facility] 3 04:48:10 Gastroesophag eal reflux disease without esophagitis Completed 201708/27/2023 06/02/2019 - Comments only - Rita Quiroga MD - Continue with ranitidine. Problem Code: K21.9; Problem Code Type: ICD-10; Not Available [facility] 3 04:48:10 Pain of left knee joint Completed 201809/13/2020 Problem Code: M25.562; Problem Code Type: ICD-10; Not Available [facility] 3 04:48:10 Bilateral disorder of Eustachian tubes Completed 201803/15/2020 Problem Code: H69.83; Problem Code Type: ICD-10; Not Available [facility] 3 04:48:10 Pain of left wrist Completed 202003/07/2023 Problem Code: M25.532; Problem Code Type: ICD-10; Not Available [facility] 3 04:48:10 Pain of right shoulder joint Completed 201709/13/2020 Problem Code: M25.511; Problem Code Type: ICD-10; Not Available [facility] 3 04:48:11 Vaginal bleeding Completed 201704/30/2018 Not Available [facility] 3 04:48:11 Family history of hemochromatos is Completed 201508/27/[address], [facility] [address] , [facility] 4 22:16:04 Health condition feared but not present Completed 202206/16/2023 Problem Code: Z71.1; Problem Code Type: ICD-10; Not Available [facility] 3 04:48:11 Acute upper respiratory infection Completed 202103/07/2023 Problem Code: J06.9; Problem Code Type: ICD-10; Not Available [facility] 3 04:48:11 Uncomplicated mild persistent asthma Completed [...] J45.30; Problem Code Type: ICD-10; Not Available [facility] 3 04:48:12 History of Lyme disease Active 2023 PHILIP dahl, [facility] 4 10:24:38 Rhinitis Active 2017 allergic MD [address]ian [address], [facility] [address] , [facility] 4 22:17:08 Tension-type headache Active 2018 Stormy dahl, [facility] 4 14:03:32 Family history of hemochromatos is Active [address], [facility] [address] , [facility] 4 22:16:04 Past history of ectopic Active 2016 while on paraguard, treated with medications. MD Fabian [address], [facility] [address] , [facility] 4 22:16:57 Recurrent major depression Active [address], [place], [address] , [facility] 4 22:19:29 Subclinical hypothyroidis m Active [address], [place], [address] , [facility] 4 22:28:28 Problem Notes None recorded. Procedures Surgical History None recorded. Imaging Results Imaging Date Name Status LastModified by Organiz ation Details LastModified Time 11/04/2023 holter monitor completed [email or web address] [address], [place], [address] 11/04/2023 12:13:05 Procedure Notes None recorded. Medical [...] Available Not Avai lable OptiChamb er Fe C spacer USE DIRECTED 03/10 completed Not Available Not Available Not Available Vitals Date Recorded Body height Body mass index (BMI) Body weight Body temperature Heart rate Respiratory rate Systolic blood pressure Diastolic blood pressure Provider Name and Address Organization Details Last Updated DateTime 3 160.02 cm 23.9 kg/m2 26876.9 7 g 98.1 [degF] 64 /min 16 /min 124 mm[Hg] 80 mm[Hg] NICOLETTE HELTON LPN [facility] 3 15:36:39 Date Recorded Body height Body mass index (BMI) Body weight Body temperature Oxygen saturation Oxygen saturation in Arterial blood by Pulse oximetry Heart rate Systolic blood pressure Diastolic blood pressure Provider Name and Address Organization Details Last Updated DateTime 4 160.02 cm 24.2 kg/m2 35940 g 98.1 [degF] 95 % 95 % 80 /min 114 mm[Hg] 58 mm[Hg] JOSEFINA JIMENEZ MA [facility] 4 09:29:02 Date Recorded Body height Body mass index (BMI) Body weight Body temperature Respiratory rate Heart rate Systolic blood pressure Diastolic blood pressure Provider Name and Address Organization Details Last Updated DateTime 4 160.02 cm 24.4 kg/m2 23497.7 5 g 98.2 [degF] 14 /min 76 /min 116 mm[Hg] 84 mm[Hg] NICOLETTE HELTON LPN [facility] 4 15:09:12 Social History Question Answer Notes LastModified by Organization Details LastModified Time Tobacco Smoking Status Never Smoker occassionally in the past NICOLETTE HELTON LPN [facility], [facility] 03/10/2024 15:12:04 Would You Say That, In [...] Recorded Time MMR 07/28/1990 completed Not Available [facility] 05:27:43 MMR 09/27/1998 completed Not Available [facility] 05:27:44 DTaP, unspecified formulation 05/13/1994 completed Not Available [facility] 10/10/2023 05:27:44 DTaP, unspecified formulation 1989 completed Not Available [facility] 10/10/2023 05:27:44 DTaP, unspecified formulation 1989 completed Not Available [facility] 10/10/2023 05:27:44 DTaP, unspecified formulation 10/02/1990 completed Not Available [facility] 10/10/2023 05:27:44 DTaP, unspecified formulation 1989 completed Not Available [facility] 10/10/2023 05:27:44 meningococcal ACWY, unspecified formulation 07/02/2007 completed Not Available [facility] 10/10/2023 05:27:44 Tdap 02/08/2011 completed Not Available [facility] 05:27:44 Tdap 08/29/2021 completed Not Available [facility] 05:27:45 HPV, unspecified formulation 04/28/2008 completed Not Available [facility] 10/10/2023 05:27:45 HPV, unspecified formulation 07/02/2007 completed Not Available [facility] 10/10/2023 05:27:45 HPV, unspecified formulation 10/20/2007 completed Not Available [facility] 10/10/2023 05:27:45 Td(adult) unspecified formulation 09/24/2004 completed Not Available [facility] 10/10/2023 05:27:45 Influenza, split virus, quadrivalent, PF 08/29/2021 completed Not Available [facility] 10/10/2023 05:27:45 Influenza, split virus, quadrivalent, PF 09/13/2020 completed Not Available [facility] 10/10/2023 05:27:45 Influenza, MDCK, trivalent, PF 10/11/2015 completed Not Available [facility] 10/10/2023 05:27:45 COVID-19, mRNA, LNP-S, PF, 30 mcg/0.3 mL dose 02/09/2021 completed Not Available [facility] 10/10/2023 05:27:45 COVID-19, mRNA, LNP-S, PF, 30 mcg/0.3 mL dose 03/09/2021 completed Not Available [facility] 10/10/2023 05:27:46 SARS-COV-2 (COVID-19) vaccine, UNSPECIFIED 08/28/2022 completed Not Available [facility] 10/10/2023 05:27:46 SARS-COV-2 (COVID-19) vaccine, UNSPECIFIED 09/24/2021 completed Not Available [facility] 10/10/2023 05:27:46 Hep B, unspecified formulation 07/04/2000 completed Not Available [facility] 10/10/2023 05:27:46 Hep B, unspecified formulation 07/27/1997 completed Not Available [facility] 10/10/2023 05:27:46 Hep B, unspecified formulation 10/08/1999 completed Not Available [facility] 10/10/2023 05:27:46 Hep A, unspecified formulation 12/03/2006 completed Not Available [facility] 10/10/2023 05:27:46 Hep A, unspecified formulation 05/02/2005 completed Not Available [facility] 10/10/2023 05:27:46 influenza, unspecified formulation 09/10/2018 completed Not Available [facility] 10/10/2023 05:27:46 influenza, unspecified formulation 09/14/2019 completed Not Available [facility] 10/10/2023 05:27:47 polio, unspecified formulation 05/03/1994 completed Not Available [facility] 10/10/2023 05:27:47 polio, unspecified formulation 1989 completed Not Available [facility] 10/10/2023 05:27:47 polio, unspecified formulation 1989 completed Not Available [facility] 10/10/2023 05:27:47 COVID-19, mRNA, LNP-S, PF, sb-sucrose, 30 mcg/0.3 mL 09/24/2023 completed Not Available [facility] 12/12/2023 05:33:14 Past Encounters Encounter ID Performer Location Encounter Start Date Encounter Closed Date Diagnosis/Indication Diagnosis SNOMED-CT Code [id number] RITA QUIROGA MD [facility] [address] [place] [address] 11/14/2023 15:25:50 11/14/2023 16:01:43 Palpitations [id number] Bronchospasm [id number] HAJA GARZA [facility] [address] [place] [address] 02/19/2024 09:17:54 02/19/2024 10:01:12 Anxiety [id number] Mild inter mittent asthma [id number] RITA QUIROGA MD [facility] [address] [place] [address] 03/10/2024 14:51:45 03/10/2024 15:57:19 Adult health examination [id number] [facility]clin[facility] hypothyroidism [id number] Night sweats 96378189 Anxiety 62520089 Rhinitis 93056308 Palpitations [id number] Lynne Drake RN [facility] [address] [place] [address] 06/10/2024 10:23:38 06/10/2024 10:36:34 Hypothyroidism 00377274 Health Concerns Section Related Observation LastModified by Organization Detai ls LastModified Time None Recorded Concern Status LastModified by Organization Details LastModified Time None Recorded Advance Directives Directive None Recorded Payers Encounter Date Sequence Insurance Name Policy Number Policy Cruz Covered Member ID Cruz Member ID Guarantor Name 11/14/2023 1 [place] [employer] Roxanne V Wuceferino [id number] Roxanne V [place] 02/19/2024 1 [place] Roxanne V Wurcarmen [id number] Roxanne V [place] 03/10/2024 1 [place] Roxanne V Wurcarmen [id number] Roxanne V [place] 06/10/2024 1 [place] Roxanne V Devin [id number] Roxanne V [place] Notes Date Note Type Note Provider Name and Address Organization Details Recorded Time 11/14/2023 text/html HPI Notes: She underwent 48 hour air sampling and monitoring 11/04/23, which was totally normal. She had [...] palpitations. RITA QUIROGA MD [address], [place], [address], [facility]. 11/14/2023 16:36:02 02/19/2024 text/html HPI Notes: Pt, [...] true or not. She reported she saw dispatcher electric power who guided she has environmental allergies, but [...] non profit. HAJA GARZA [address], [place], [address], [facility]. 02/19/2024 11:00:13 03/10/2024 text/html HPI Notes: Here [...] slightly elevated TSH. RITA QUIROGA MD [address], [place], [address], [facility]. 03/10/2024 16:48:25 OBGyn Episode No OBEpisode recorded.
--- OUTSIDE RECORDS SUMMARY | 2024-07-21 03:17 | XMS_ITS | Encounter Summary ---
Author Organization [facility] Address [address] [place] [address] Care Team Providers Care Psych Specialist Name Role Phone Rita Quiroga MD Primary Care Provider [phone] Reason for Visit * Reason Comments Ectopic seen at [facility], told she might have an ectopic prgnancy. Here with abdominal pain Encounter Details Date Type Department Care Team (Late st Contact Info) Description 04/13/2017 22:03 EDT - 04/14/2017 0:35 EDT Emergency [facility] Emergency Department - [place] [address] [place] [id number] Vic Lisa MD Emergency, MD Saman Less [...] Notes * Yaneth Floyd RN - 04/13/2017 8220 EDT Pt to [place] via stretcher with [facility]. * iVc Lisa MD - 04/13/2017 4428 EDT DOS: 04/13/2017 Chief Complaint Patient presents [...] by the patient and medical records. No language translator was used. Review of Systems Review of [...] 2.9 cm left ovarian cyst, read by resident care coordinator. There is a hyperechoic shadowing structure present [...] daily. added in this encounter Care Teams Psych Specialist Relationship Specialty Start Date End Date Rita Quiroga MD [address] [place] [phone] PCP - General 04/13/17 documented as of this encounter
--- OUTSIDE RECORDS SUMMARY | 2024-07-21 03:17 | XMS_ITS | Encounter Summary ---
Author Organization [facility] Address [address] [place] [address] Care Team Providers Care Grating Machine Operator Name Role Phone Rita Quiroga MD Primary Care Provider [phone] Reason for Visit * Reason Onset Date Comments Vaginal Bleeding 08/07/2017 Encounter Details Date Type Department Care Team (Late st Contact Info) Description 08/07/2017 Telephone [facility] - [address] [address] Lucía Busch RN Vaginal Bleeding Social History [...] appt. Will ask Dr. Herzog. Pt uses [facility]. OK to leave a detailed message on pt's phone if needed. documented in this encounter Plan of Treatment Not on file documented as of this encounter Visit Diagnoses Not on filedocumented in this encounter Care Teams Grating Machine Operator Relationship Specialty Start Date End Date Rita Quiroga MD [address] [place] [place] [phone] PCP - General 04/13/17 documented as of this encounter
--- OUTSIDE RECORDS SUMMARY | 2024-07-21 03:17 | XMS_ITS | Encounter Summary ---
Author Organization [facility] Address [address] [place] [address] Care Team Providers Care Watch Guard Gate Name Role Phone Rita Quiroga MD Primary Care Provider [phone] Encounter Details Date Type Department Care Team (Late st Contact Info) Description 04/13/2017 Orders Only Non [facility] Ancillary Services Christine Michelle, EARLY HEAD START DIRECTOR [address] [place] [address] Other specified related conditions, first [...] Preg 287(H) <5 mIU/ml 04/15/2017 11:32 EDT [facility] Comment: Reference Range: Negative = <5 Indeterminate = 5-25 recommend repeat in 48 hours. Positive = >25 Blood specimen (specimen) BLOOD SPECIMEN / Unknown 04/15/2017 10:03 EDT 04/15/2017 10:45 EDT Christine Michelle EARLY HEAD START DIRECTOR CHEMISTRY & BLOOD G ORDERABLES [facility] [address] [place] [address] documented in this encounter Visit Diagnoses Diagnosis Other specified related conditions, first trimester- Primary documented in this encounter Care Teams Watch Guard Gate Relationship Specialty Start Date End Date Rita Quiroga MD [address] [place] [phone] PCP - General 04/13/17 documented as of this encounter
--- OUTSIDE RECORDS SUMMARY | 2024-07-21 03:17 | XMS_ITS | Encounter Summary ---
Author Organization [facility] Address [address] [place] [address] Care Team Providers Care Environmental Property Assessor Name Role Phone Rita Quiroga MD Primary Care Provider [phone] Reason for Visit * Reason Onset Date Comments Appointment Related 04/30/2017 Encounter Details Date Type Department Care Team (Late st Contact Info) Description 04/30/2017 Telephone [facility] Dermatology [address] [facility] [address] [place] [address] Desirae Desai MD [address] [place] [address] [phone] Appointment Related Social History Tobacco Use Types [...] on filedocumented in this encounter Care Teams Environmental Property Assessor Relationship Specialty Start Date End Date Rita Quiroga MD [address] [place] [phone] PCP - General 04/13/17 documented as of this encounter
--- OUTSIDE RECORDS SUMMARY | 2024-07-21 03:17 | XMS_ITS | Encounter Summary ---
Author Organization [facility] Address [address] [place] [address] Care Team Providers Care Substation Wireman Name Role Phone Phyllis Vega MD Primary Care Provider [phone] Encounter Details Date Type Department Care Team (Late Contact Info) Description 01/26/2014 Phlebotomy Only [address] [address] Fish And Wildlife Technician, Outpatient Social History Tobacco Use Types Packs/Day [...] on filedocumented in this encounter Care Teams Substation Wireman Relationship Specialty Start Date End Date Phyllis Vega MD [address] [place] [phone] PCP - General 03/24/09 04/12/17 documented as of this encounter
--- OUTSIDE RECORDS SUMMARY | 2024-07-21 03:17 | XMS_ITS | Encounter Summary ---
Author Organization [facility] Address [address] [place] [address] Care Team Providers Care Supervisor Tower Name Role Phone Phyllis Vega MD Primary Care Provider [phone] Encounter Details Date Type Department Care Team (Latest Contact Info) Description 01/26/2014 8:21 EST - 01/26/2014 23:59 EST Hospital Encounter [facility] [address] [place] [address] Rita Quiroga MD [address] [place] [phone] Discharge Disposition: Auto Discharge Social History [...] 2.85 0.35 - 5.00 uIU/ml [facility] Comment: TSH cascade is not recommended for patients in which pituitary or hypothalamic disorders are suspected. 01/26/2014 8:40 EST 01/26/2014 10:14 EST Rita Quiroga MD CHEMISTRY & BLOOD GA S ORDERABLES [facility] [address] [place] [address] * LIPID PROFILE (INCLUDES CHOLESTEROL, TRIGLYCERIDES, HDL, LDL) (01/26/2014 8:40 EST) Cholesterol 183 mg/dl [facility] Comment: Icteric Icterus is not a quantitative measurement of bilirubin. Desirable:<200 Borderline High:200-239 High:>tw=272 Triglycerides 46 mg/dl [facility] Comment: Icteric Icterus is not a quantitative measurement of bilirubin. Normal:<150 Borderline High:150-199 High:200-499 Very High:>up=631 HDL 59 mg/dl [facility] Comment: Icteric Icterus is not a quantitative measurement of bilirubin. Low:<40 Normal:40-60 Desirable: >60 LDL, Calculated 115 mg/dl [facility] Comment: Optimal:<100 Near Optimal:100-129 Borderline High:130-159 High:160-189 Very High:>jx=225 Chol/HDL Ratio 3.1 [facility] Fasting? YES [facility] Non HDL Cholesterol 124 mg/dl [facility] Comment: Icteric Icterus is not a quantitative measurement of bilirubin. Desirable:<130 Borderline:130-159 High: 160-189 Very High: >gs=937 01/26/2014 8:40 EST 01/26/2014 10:14 EST Rita Quiroga MD CHEMISTRY & BLOOD GA S ORDERABLES [facility] [address] [place] [address] * BASIC METABOLIC PANEL (01/26/2014 8:40 EST) Sodium 137 136 - 145 mEq/L [facility] Comment: Icteric Icterus is not a quantitative measurement of bilirubin. Potassium 4.0 3.5 - 5.0 mEq/L [facility] Comment: Icteric Icterus is not a quantitative measurement of bilirubin. Chloride 96 96 - 110 mEq/L [facility] Comment: Icteric Icterus is not a quantitative measurement of bilirubin. CO2 28 24 - 32 mEq/L [facility] Comment: Icteric Icterus is not a quantitative measurement of bilirubin. BUN 12 10 - 26 mg/dl [facility] Comment: Icteric Icterus [...] Glucose, Serum 80 70 - 100 mg/dl [facility] Comment: Icteric Icterus is not a quantitative measurement of bilirubin. Fasting? YES [facility] 01/26/2014 8:40 EST 01/26/2014 10:14 EST Rita Quiroga MD CHEMISTRY & BLOOD GA S ORDERABLES Performing Organization Address City/State/[facility] Co de Phone Number [facility] [address] [place] [address] documented in this encounter Visit Diagnoses Not on filedocumented in this encounter Care Teams Supervisor Tower Relationship Specialty Start Date End Date Phyllis Vega MD [address] [place] [phone] PCP - General 03/24/09 04/12/17 documented as of this encounter
--- OUTSIDE RECORDS SUMMARY | 2024-07-21 03:17 | XMS_ITS | Encounter Summary ---
Author Organization [facility] Address [address] [place] [address] Care Team Providers Care Tank Insulator Rubber Name Role Phone Rita Quiroga MD Primary Care Provider [phone] Reason for Referral * YAM CURER (Other (Specify in Question)) - Closed Specialty Diagnoses / Procedures Referred By Zafar jason Referred To Contact Diagnoses of unknown anatomic location Procedures SWITCH CREW SUPERVISOR US OB FIRST TRIMESTER TRANSVAGINAL Jenifer Baker MD [address] [facility], [address] [place] [address] Referral ID Status Reason Start Date Expiration Date Visits Re quested Visits Authorized [id number] Closed 04/15/2017 1 1 Reason for Visit * Reason Onset Date Comments Ectopic 04/15/2017 Encounter Details Date Type Department Care Team (Late st Contact Info) Description 04/15/2017 Orders Only [facility] Women's Services - [address] [id number] Leni Delgado RN of unknown anatomic location [...] morning followed by US and CON in SWITCH CREW SUPERVISOR clinic. Added to SWITCH CREW SUPERVISOR beta hcg monitoring list. Reported height is 62 and weight is 118 pounds. documented in this encounter Plan of Treatment Not on file documented as of this encounter Procedures Procedure Name Priority Date/Time Associated Diagnosis Comments SWITCH CREW SUPERVISOR OB FIRST TRIMESTER TRANSVAGINAL Routine 04/16/2017 9:23 EDT of unknown anatomic location documented in this encounter Results * SWITCH CREW SUPERVISOR US OB FIRST TRIMESTER TRANSVAGINAL (04/16/2017 9:23 [...] ultrasound examination. View: Sufficient. Impression OB transvaginal [id number] Right adnexal mass adjacent to right ovary [...] ultrasound examination. View: Sufficient. Impression OB transvaginal [id number] Right adnexal mass adjacent to right ovary containing two CL's highly suspicious for tubal ectopic. Anteverted uterus with remnant Paragard IUD arm embedded into the right FRANKIE. No IUP identified. Left hemorrhagic cyst. The Paragard arm was removed under direct ultrasound visualization. Follow-up See [facility] notes for discussion of treatment plans for ectopic . Jenifer Baker MD IMG US SWITCH CREW SUPERVISOR ORDER DALLIN * (ABNORMAL) BUN (04/16/2017 8:37 EDT) BUN 8(L) 10 - 26 mg/dl 04/16/2017 9:38 EDT [facility] Blood specimen (specimen) BLOOD SPECIMEN / Unknown 04/16/2017 8:37 EDT 04/16/2017 8:53 EDT Jenifer Baker MD CHEMISTRY & BLOO D GAS ORDERABLES [facility] [address] [place] [address] * CREATININE (04/16/2017 8:37 EDT) Creatinine 0.61 0.52 - 1.04 mg/dl 04/16/2017 9:38 EDT [facility] GFR, Calculated 124 >60 ml/min/1.7 3m2 04/16/2017 9:38 EDT [facility] Comment: eGFR calculated using CKD-EPI equation for non Americans. Multiply eGFR by 1.16 for Americans. Blood specimen (specimen) BLOOD SPECIMEN / Unknown 04/16/2017 8:37 EDT 04/16/2017 8:53 EDT Jenifer Baker MD CHEMISTRY & BLOO D GAS ORDERABLES Performing Organization Address [facility]/ZIP Co de Phone Number [facility] [address] [place] [address] * AST (04/16/2017 8:37 EDT) AST 18 15 - 46 U/L 04/16/2017 9:38 EDT [facility] Blood specimen (specimen) BLOOD SPECIMEN / Unknown 04/16/2017 8:37 EDT 04/16/2017 8:53 EDT Jenifer Baker MD CHEMISTRY & BLOO D GAS ORDERABLES Performing Organization Address City/[facility]/ZIP Co de Phone Number [facility] [address] [place] [address] * ALT (04/16/2017 8:37 EDT) ALT 20 <53 U/L 04/16/2017 9:38 EDT [facility] Blood specimen (specimen) BLOOD SPECIMEN / Unknown 04/16/2017 8:37 EDT 04/16/2017 8:53 EDT Jenifer Baker MD CHEMISTRY & BLOO D GAS ORDERABLES [facility] [address] [place] [address] * (ABNORMAL) HEMAGRAM (04/16/2017 8:37 EDT) WBC 7.89 4.0 - 12.4 K/cmm 04/16/2017 9:16 EDT [facility] RBC 4.29 3.86 - 5.04 M/cmm 04/16/2017 9:16 T [facility] Hemoglobin 11.8 11.6 - 15.2 gm/dl 04/16/2017 9:16 EDT [facility] HCT 35.6 34.9 - 44.4 % 04/16/2017 9:16 T [facility] MCV 83 81 - 98 fl 04/16/2017 9:16 T [facility] MCH 27.5 26.7 - 33.3 pg 04/16/2017 9:16 [facility] MCHC 33.1 32.1 - 35.9 gm/dl 04/16/2017 9:16 [facility] RDW-CV 15.1(H) <14.7 % 04/16/2017 9:16 [facility] RDW-SD 46.3 <50.4 fl 04/16/2017 9:16 [facility] PLT 287 141 - 377 K/cmm 04/16/2017 9:16 [facility] MPV 11.0 9.5 - 12.7 fl 04/16/2017 9:16 [facility] Blood specimen (specimen) BLOOD SPECIMEN / Unknown 04/16/2017 8:37 EDT 04/16/2017 8:53 EDT Jenifer Baker MD HEMATOLOGY & PF4 ORDERABLES [facility] [address] [place] [address] * (ABNORMAL) HCG FOR (04/16/2017 8:37 EDT) Quant Beta HCG, Preg 317(H) <5 mIU/ml 04/16/2017 9:38 EDT [facility] Comment: Reference Range: Negative = <5 Indeterminate = 5-25 recommend repeat in 48 hours. Positive = >25 Blood specimen (specimen) BLOOD SPECIMEN / Unknown 04/16/2017 8:37 EDT 04/16/2017 8:53 EDT Jenifer Baker MD CHEMISTRY & BLOO D GAS ORDERABLES [facility] [address] [place] [address] documented in this encounter Visit Diagnoses Diagnosis of unknown anatomic location- Primary state, incidental documented in this encounter Care Teams Tank Insulator Rubber Relationship Specialty Start Date End Date Rita Quiroga MD [address] [place] [phone] PCP - General 04/13/17 documented as of this encounter
--- OUTSIDE RECORDS SUMMARY | 2024-07-21 03:17 | XMS_ITS | Encounter Summary ---
Author Organization [facility] Address [address] [place] [address] Care Team Providers Care Contracts Intern Name Role Phone Rita Quiroga MD Primary Care Provider [phone] Encounter Details Date Type Department Care Team (Late Contact Info) Description 04/13/2017 Phlebotomy Only [address] [address] Paper Bags Sewing Machine Operator, Outpatient Other specified related conditions, first trimester [...] Preg 267(H) <5 mIU/ml 04/13/2017 11:33 EDT [facility] Comment: Reference Range: Negative = <5 Indeterminate = 5-25 recommend repeat in 48 hours. Positive = >25 Blood specimen (specimen) BLOOD SPECIMEN / Unknown 04/13/2017 9:36 EDT 04/13/2017 10:49 EDT Christine Michelle DIESEL MECHANIC HELPER CHEMISTRY & BLOOD G ORDERABLES [facility] [address] [place] [address] documented in this encounter Visit Diagnoses Diagnosis Other specified related conditions, first trimester- Primary documented in this encounter Care Teams Contracts Intern Relationship Specialty Start Date End Date Rita Quiroga MD [address] [place] [phone] PCP - General 04/13/17 documented as of this encounter
--- OUTSIDE RECORDS SUMMARY | 2024-07-21 03:17 | XMS_ITS | Encounter Summary ---
Author Organization [facility] Address [address] [place] [address] Care Team Providers Care Resource Forester Name Role Phone Phyllis Vega MD Primary Care Provider [phone] Encounter Details Date Type Department Care Team ([facility] Contact Info) Description 10/20/2013 12:56 EST - 10/20/2013 23:59 EST Hospital Encounter [facility] - Other [address] [place] [address] Nam Winslow MD [address] [facility], [address] [place] [address] Discharge Disposition: Home or Self [...] on filedocumented in this encounter Care Teams Resource Forester Relationship Specialty Start Date End Date Phyllis Vega MD [address] [place] [phone] PCP - General 03/24/09 04/12/17 documented as of this encounter
--- OUTSIDE RECORDS SUMMARY | 2024-07-21 03:17 | XMS_ITS | Encounter Summary ---
Author Organization [facility] Address [address] [place] [address] Care Team Providers Care Jailor Name Role Phone Rita Quiroga MD Primary Care Provider [phone] Encounter Details Date Type Department Care Team (Late Contact Info) Description 04/20/2017 Phlebotomy Only [address] [address] Instructional Technology Director, Outpatient Tubal without intrauterine (Primary Dx) Social [...] Preg 63(H) <5 mIU/ml 04/20/2017 13:22 EDT [facility] Comment: Reference Range: Negative = <5 Indeterminate = 5-25 recommend repeat in 48 hours. Positive = >25 Blood specimen (specimen) BLOOD SPECIMEN / Unknown 04/20/2017 10:43 EDT 04/20/2017 12:32 EDT Jenifer Baker MD CHEMISTRY & BLOO D GAS ORDERABLES [facility] [address] [place], [place] documented in this encounter Visit Diagnoses Diagnosis Tubal without intrauterine - Primary documented in this encounter Care Teams Jailor Relationship Specialty Start Date End Date Rita Quiroga MD [address] [place] [phone] PCP - General 04/13/17 documented as of this encounter
--- OUTSIDE RECORDS SUMMARY | 2024-07-21 03:17 | XMS_ITS | Encounter Summary ---
Author Organization [facility] Address [address] [place] [address] Care Team Providers Care Multiple Sclerosis Nurse Name Role Phone Phyllis Vega MD Primary Care Provider [phone] Reason for Visit * Reason Comments Eye Problem Patient states blue spots in vision. Patient thinks left eye, but not positive. Increased frequency with fatigue, but other times as well. Denies headache, itch, burn, or tearing. Occasional floaters. Encounter Details Date Type Department Care Team (Late st Contact Info) Description 10/30/2011 11:00 EST Office Visit [facility] Ophthalmology - [address] [address] Daljit Dyer MD [address] [facility], [address] [place] [address] Social History Tobacco Use Types [...] Applanation Time: 11:45 Wearing Rx Sphere Cylinder Dillon Right +0.75 +3.00 095 Left -0.25 +0.25 [...] to call if change. PLAN: Test Performed: [facility] 24-2 Indications for test: photopsias/ocular migraine Results/Findings: WNL Plan: FU prn. documented in this encounter Miscellaneous Notes * Scanned Note-Null - Orientation And Mobility Specialist, Scan - 10/30/2011 1513 EST documented in [...] TI No TI Wearing Rx Sphere Cylinder Dillon Right eye +0.75 +3.00 095 Left eye -0.25 +0.25 100 Age: 4yrs Type: Reading Patient states using glasses mainly for reading. Care Teams Multiple Sclerosis Nurse Relationship Specialty Start Date End Date Phyllis Vega MD [address] [place] [phone] PCP - General 03/24/09 04/12/17 documented as of this encounter
--- OUTSIDE RECORDS SUMMARY | 2024-07-21 03:17 | XMS_ITS | Encounter Summary ---
Author Organization [facility] Address [address] [place] [address] Care Team Providers Care Oil Spot Washer Name Role Phone Phyllis Vega MD Primary Care Provider [phone] Reason for Visit * Reason Comments Eye Flashes And/Or Floaters Increase in Floater, both eyes (blue spots). Worse if Pt is stressed out. Stopped Celexa last summer. No flashes or eyepain. Vision stable, no changes. Encounter Details Date Type Department Care Team (Late st Contact Info) Description 12/24/2011 8:00 EST Office Visit [facility] Ophthalmology - [address] [address] Daljit Dyer MD [address] [place] [address], Level 5 [place] [address] Social History Tobacco Use Types [...] Notes * Daljit Dyer MD - 12/24/2011 108 EST DIVISION OF OPHTHALMOLOGY [facility] December 24, 2011 Phyllis Vega MD [address] [address] Vega: Roxanne Beltran was reexamined [...] Dyer MD - Job ID: Doc ID: [id number] [facility] Doc ID: [id number] cc: Phyllis Vega MD * Daljit Dyer MD - 12/24/2011 0944 EST This note has been dictated and [...] Applanation Time: 9:02 Wearing Rx Sphere Cylinder Morrison Right +0.75 +3.00 095 Left -0.25 +0.25 100 Type: Reading Wearing Rx #2 Sphere Cylinder Morrison Right +1.25 +2.50 91 Left -0.25 +0.25 [...] encounter Miscellaneous Notes * Scanned Note-Null - Owner Manager, Scan - 12/25/2011 0954 EST documented in [...] & BLOOD G ORDERABLES Performing Organization Address [facility] [[email or web address]] Co de Phone Number [facility] [address] [place] [address] * BUN (12/30/2011 13:42 EST) BUN 13 10 - 26 mg/dl [facility] Blood specimen (specimen) 12/30/2011 13:42 EST 12/30/2011 14:26 EST Daljit Dyer MD CHEMISTRY & BLOOD G ORDERABLES Performing Organization Address [facility] [[email or web address]] Co de Phone Number [facility] [address] [place] [address] documented in this encounter Visit Diagnoses Diagnosis [...] syne resis Wearing Rx #1 Sphere Cylinder Morrison Right eye +0.75 +3.00 095 Left eye -0.25 +0.25 100 Type: Reading Wearing Rx #2 Sphere Cylinder Morrison Right eye +1.25 +2.50 91 Left eye -0.25 +0.25 96 Type: SVL Manifest Refraction Sphere Cylinder Right eye -0.25 clearer Left eye -0.25 clearer Care Teams Oil Spot Washer Relationship Specialty Start Date End Date Phyllis Vega MD [address] [place] [address] PCP - General 03/24/09 04/12/17 documented as of this encounter
--- OUTSIDE RECORDS SUMMARY | 2024-07-21 03:17 | XMS_ITS | Encounter Summary ---
Author Organization [facility] Address [address] [place] [address] Care Team Providers Care Acid Correction Hand Name Role Phone Phyllis Vega MD Primary Care Provider [phone] Reason for Visit * Reason Comments Follow-up MRI follow up. Pt [facility]. Pt states less floaters, flashes and blue lights since last visit. No headaches. No eyepain. Floaters on going the same. Encounter Details Date Type Department Care Team (Late st Contact Info) Description 01/27/2012 10:00 EST Office Visit [facility] Ophthalmology - [address] [address] Daljit Dyer MD [address] [facility], Level 5 [place] [address] Social History Tobacco Use Types [...] - 01/28/2012 0811 EST DIVISION OF OPHTHALMOLOGY [facility] January 27, 2012 Kimberlee Samson MD [address] [place] [address] Dear Jossy: This is to refer a [...] Daljit Dyer MD 01/29/2012 18:29 [facility] - Daljit Dyer MD - Job ID: SM Doc ID: [id number] Ext Doc ID: [id number] cc: Jossy Atkins MD * Daljit Dyer MD - 01/27/2012 1230 EST . Base Ophthalmology Exam Visual Acuity Right Left Both Dist cc 20/20 20/20 Method: Snellen - Linear Comments: Pt forgot glasses, used phoropter, with glasses RX Wearing Rx Sphere Cylinder Geneva Right +0.75 +3.00 095 Left -0.25 +0.25 100 Type: Reading Wearing Rx #2 Sphere Cylinder Geneva Right +1.25 +2.50 91 Left -0.25 +0.25 96 Type: SVL IMP: There are no diagnoses linked to this encounter. PLAN: I am scribing for Daljit Dyer MD while he is personally performing the service. VALENTINO Boykin (Scribe) documented in this encounter Miscellaneous Notes * Scanned Note-Null - EMERGENCY MANAGEMENT CONSULTANT, SCAN 2 - 01/30/2012 1124 EST documented [...] glasses RX Wearing Rx #1 Sphere Cylinder Geneva Right eye +0.75 +3.00 095 Left eye -0.25 +0.25 100 Type: Reading Wearing Rx #2 Sphere Cylinder Geneva Right eye +1.25 +2.50 91 Left eye -0.25 +0.25 96 Type: SVL Care Teams Acid Correction Hand Relationship Specialty Start Date End Date Phyllis Vega MD [address] [place] [address] PCP - General 03/24/09 04/12/17 documented as of this encounter
--- OUTSIDE RECORDS SUMMARY | 2024-07-21 03:17 | XMS_ITS | Encounter Summary ---
Author Organization [facility] Address [address] [place] [address] Care Team Providers Care Business Systems Administrator Name Role Phone Rita Quiroga MD Primary Care Provider [phone] Reason for Visit * Reason Onset Date Comments Ectopic 04/30/2017 Encounter Details Date Type Department Care Team ([facility] Contact Info) Description 04/30/2017 Telephone [facility] Women's Services - [address] [address] Leni Delgado RN Ectopic Social History Tobacco [...] Encounter - Leni Delgado RN - 04/30/2017 2142 EDT Component Latest Ref Rng & Units [...] on filedocumented in this encounter Care Teams Business Systems Administrator Relationship Specialty Start Date End Date Rita Quiroga MD [address] [place] [phone] PCP - General 04/13/17 documented as of this encounter
--- OUTSIDE RECORDS SUMMARY | 2024-07-21 03:17 | XMS_ITS | Encounter Summary ---
Author Organization [facility] Address [address] [place] [address] Care Team Providers Care Operations Forester Name Role Phone Phyllis Vega MD Primary Care Provider [phone] Reason for Visit * Reason Comments Follow-up Hx of photopsias. Hx of migraines. Myopia. Still has blue spots in vision and squiggly floaters but no change. va stable. No pain. Encounter Details Date Type Department Care Team (Late st Contact Info) Description 04/12/2011 8:45 EDT Office Visit [facility] Ophthalmology - Main [address] [address] Terry Sal MD [address] [place] [address], Level [address] [place] [address] Social History Tobacco Use Types [...] - 04/24/2011 1212 EDT DIVISION OF OPHTHALMOLOGY GRAD[facility] STUDENT INSTRUCTOR [facility] PROGRESS/FOLLOWUP NOTE - 04/12/2011 Daljit Dyer MD [facility] - Ophthalmology [address] [place] [address] Dear Daljit: This is a letter of [...] Terry Sal MD [facility] [address] [place] [address] - Terry Sal MD - [facility] Job ID: SM Doc ID: [id number] [facility] Doc ID: [id number] cc: MD Manda Rosales OD * Terry [...] dilated exam . Pt likely moving from [facility] after graduation from college She knows to [...] CR Scar 9 o'clock Normal Care Teams Operations Forester Relationship Specialty Start Date End Date Phyllis Vega MD [address] [place] [phone] PCP - General 03/24/09 04/12/17 documented as of this encounter
--- OUTSIDE RECORDS SUMMARY | 2024-07-21 03:17 | XMS_ITS | Encounter Summary ---
Author Organization [facility] Address [address] [place] [address] Care Team Providers Care Surveillance Specialist Name Role Phone Rita Quiroga MD Primary Care Provider [phone] Reason for Visit * Reason Onset Date Comments Pharmacy 04/16/2017 Encounter Details Date Type Department Care Team (Late st Contact Info) Description 04/16/2017 Orders Only [facility] Women's Services - [facility] [address] [place] [address] Leni Delgado RN Social History Tobacco Use [...] on filedocumented in this encounter Care Teams Surveillance Specialist Relationship Specialty Start Date End Date Rita Quiroga MD [facility] [address] [phone] PCP - General 04/13/17 documented as of this encounter
--- OUTSIDE RECORDS SUMMARY | 2024-07-21 03:17 | XMS_ITS | Encounter Summary ---
Author Organization [facility] Address [address] [place] [address] Care Team Providers Care Financial Planning Assistant Name Role Phone Phyllis Vega MD Primary Care Provider [phone] Encounter Details Date Type Department Care Team ([facility] Contact Info) Description 01/20/2012 20:51 EST - 01/20/2012 23:59 EST Hospital Encounter [facility] [address] [place] [address] Daljit Dyer MD 111 [facility], Level [address] [place] [address] Discharge Disposition: Home or Self [...] Code Departure Means Destination Home or Self [facility] documented in this encounter Plan of Treatment Not on file documented as of this encounter Visit Diagnoses Not on filedocumented in this encounter Care Teams Financial Planning Assistant Relationship Specialty Start Date End Date Phyllis Vega MD [address] [place] [phone] PCP - General 03/24/09 04/12/17 documented as of this encounter
--- OUTSIDE RECORDS SUMMARY | 2024-07-21 03:17 | XMS_ITS | Encounter Summary ---
Author Organization [facility] Address [address] [place] [address] Care Team Providers Care Sheet Metal Worker Apprentice Name Role Phone Phyllis Vega MD Primary Care Provider [phone] Reason for Visit * Reason Onset Date Comments Eye Problem 10/16/2011 FLOATERS GETTING WORSE OVER THE PAST MONTH OR TWO LT>RT Appointment Related 10/16/2011 PT CALLED AN D WE SCHED HER FOR 10.30.11 PER EVELIO Encounter Details Date Type Department Care Team (Late st Contact Info) Description 10/16/[address] [facility] Ophthalmology - [address] [address] Daljit Dyer MD [address] [facility], [address] [place] [address] Eye Problem (FLOATERS GETTING WORSE [...] it would take them to get to [facility], if they were to be told to come. Pt lives in [place] and it would take her about 10mins to get to [facility]. Pt Will be going out of town from this Friday to next Friday. Phone #: [phone]) [phone]: I gave this to Milly Linares To go over with EVELIO. documented in this encounter Plan of Treatment Not on file documented as of this encounter Visit Diagnoses Not on filedocumented in this encounter Care Teams Sheet Metal Worker Apprentice Relationship Specialty Start Date End Date Phyllis Vega MD [address] [place] [phone] PCP - General 03/24/09 04/12/17 documented as of this encounter
--- OUTSIDE RECORDS SUMMARY | 2024-07-21 03:17 | XMS_ITS | Encounter Summary ---
Author Organization [facility] Address [address] [place] [address] Care Team Providers Care Project Management Instructor Name Role Phone Rita Quiroga MD Primary Care Provider [phone] Encounter Details Date Type Department Care Team (Late st Contact Info) Description 04/23/2017 11:08 EDT - 04/23/2017 23:59 EDT Hospital Encounter [facility] - [address] [address] Jenifer Baker MD 111 [facility] [address] [place] [address] Discharge Disposition: Auto Discharge Social [...] on filedocumented in this encounter Care Teams Project Management Instructor Relationship Specialty Start Date End Date Rita Quiroga MD [address] [place] [phone] PCP - General 04/13/17 documented as of this encounter
--- OUTSIDE RECORDS SUMMARY | 2024-07-21 03:17 | XMS_ITS | Encounter Summary ---
Author Organization [facility] Address [address] [place] [address] Care Team Providers Care Magnesium Mill Operator Name Role Phone Rita Quiroga MD Primary Care Provider [phone] Encounter Details Date Type Department Care Team (Latest Contact Info) Description 04/15/2017 9:35 EDT - 04/15/2017 23:59 EDT Hospital Encounter [address] [address] Christine Michelle, ENVIRONMENTAL PROFESSIONAL [address] [place] [address] Discharge Disposition: Home or Self [...] Code Departure Means Destination Home or Self [facility] documented in this encounter Plan of Treatment Not on file documented as of this encounter Visit Diagnoses Not on filedocumented in this encounter Care Teams Magnesium Mill Operator Relationship Specialty Start Date End Date Rita Quiroga MD [address] [place] [phone] PCP - General 04/13/17 documented as of this encounter
--- OUTSIDE RECORDS SUMMARY | 2024-07-21 03:17 | XMS_ITS | Encounter Summary ---
Author Organization [facility] Address [address] [place] [address] Care Team Providers Care Operations Professional Name Role Phone Rita Quiroga MD Primary Care Provider [phone] Reason for Visit * Reason Onset Date Comments Other 11/19/2017 Encounter Details Date Type Department Care Team (Late Contact Info) Description 11/19/2017 Telephone [facility] Women's Services - [address] [address] Lucía Busch RN Other Social History Tobacco [...] on filedocumented in this encounter Care Teams Operations Professional Relationship Specialty Start Date End Date Rita Quiroga MD [address] [place] [phone] PCP - General 04/13/17 documented as of this encounter
--- OUTSIDE RECORDS SUMMARY | 2024-07-21 03:17 | XMS_ITS | Encounter Summary ---
Author Organization [facility] Address [address] [place] [address] Care Team Providers Care Oil Well Service Operator Name Role Phone Rita Quiroga MD Primary Care Provider [phone] Reason for Visit * Reason Comments Laser Treatment spider angioma Encounter Details Date Type Department Care Team (Late st Contact Info) Description 06/11/2017 16:00 EDT Office Visit [facility] Dermatology 3rd Floor [facility] [address] [place] [address] Desirae Desai MD [address] [place] [phone] Spider angioma (Primary Dx) Social History Tobacco [...] PULSED DYE LASER OPERATIVE REPORT Laser ID# [id number] PATIENT INFORMATION: Roxanne Beltran : MRN: [id number] SURGEON: Desirae Desai MD WHARF OPERATOR: none The risks and benefits of treatment [...] non-neoplastic documented in this encounter Care Teams Oil Well Service Operator Relationship Specialty Start Date End Date Rita Quiroga MD [address] [place] [phone] PCP - General 04/13/17 documented as of this encounter
--- OUTSIDE RECORDS SUMMARY | 2024-07-21 03:17 | XMS_ITS | Encounter Summary ---
Author Organization [facility] Address [address] [place] [address] Care Team Providers Care Material Specialist Name Role Phone Rita Quiroga MD Primary Care Provider [phone] Encounter Details Date Type Department Care Team (Late st Contact Info) Description 04/16/2017 Phlebotomy Only [address] [address] Quantometer Operator, Outpatient of unknown anatomic location (Primary Dx) [...] 10 - 26 mg/dl 04/16/2017 9:38 EDT [facility] Blood specimen (specimen) BLOOD SPECIMEN / Unknown 04/16/2017 8:37 EDT 04/16/2017 8:53 EDT Jenifer Baker MD CHEMISTRY & BLOO D GAS ORDERABLES Performing Organization Address City/[facility] Co de Phone Number [facility] [address] [place] [address] * CREATININE (04/16/2017 8:37 EDT) Creatinine 0.61 0.52 - 1.04 mg/dl 04/16/2017 9:38 EDT [facility] GFR, Calculated 124 >60 ml/min/1.7 3m2 04/16/2017 9:38 EDT [facility] Comment: eGFR calculated using CKD-EPI equation for non Americans. Multiply eGFR by 1.16 for Americans. Blood specimen (specimen) BLOOD SPECIMEN / Unknown 04/16/2017 8:37 EDT 04/16/2017 8:53 EDT Jenifer Baker MD CHEMISTRY & BLOO D GAS ORDERABLES Performing Organization Address City/[facility]/ZIP Co de Phone Number [facility] [address] [place] [address] * AST (04/16/2017 8:37 EDT) AST 18 15 - 46 U/L 04/16/2017 9:38 EDT [facility] Blood specimen (specimen) BLOOD SPECIMEN / Unknown 04/16/2017 8:37 EDT 04/16/2017 8:53 EDT Jenifer Baker MD CHEMISTRY & BLOO D GAS ORDERABLES [facility] [address] [place] [address] * ALT (04/16/2017 8:37 EDT) ALT 20 <53 U/L 04/16/2017 9:38 EDT [facility] Blood specimen (specimen) BLOOD SPECIMEN / Unknown 04/16/2017 8:37 EDT 04/16/2017 8:53 EDT Jenifer Baker MD CHEMISTRY & BLOO D GAS ORDERABLES Performing Organization Address City/[facility] Co de Phone Number [facility] [address] [place] [address] * (ABNORMAL) HEMAGRAM (04/16/2017 8:37 EDT) WBC 7.89 4.0 - 12.4 K/cmm 04/16/2017 9:16 [facility] RBC 4.29 3.86 - 5.04 M/cmm 04/16/2017 9:16 [facility] Hemoglobin 11.8 11.6 - 15.2 gm/dl 04/16/2017 9:16 [facility] HCT 35.6 34.9 - 44.4 % 04/16/2017 9:16 [facility] MCV 83 81 - 98 fl 04/16/2017 9:16 [facility] MCH 27.5 26.7 - 33.3 pg 04/16/2017 9:16 [facility] MCHC 33.1 32.1 - 35.9 gm/dl 04/16/2017 9:16 [facility] RDW-CV 15.1(H) <14.7 % 04/16/2017 9:16 [facility] RDW-SD 46.3 <50.4 fl 04/16/2017 9:16 [facility] PLT 287 141 - 377 K/cmm 04/16/2017 9:16 EDT [facility] MPV 11.0 9.5 - 12.7 fl 04/16/2017 9:16 EDT [facility] Blood specimen (specimen) BLOOD SPECIMEN / Unknown 04/16/2017 8:37 EDT 04/16/2017 8:53 EDT Jenifer Baker MD HEMATOLOGY & PF4 ORDERABLES Performing Organization Address City/[facility]/ZIP Co de Phone Number [facility] [address] [place] [address] * (ABNORMAL) HCG FOR (04/16/2017 8:37 EDT) Quant Beta HCG, Preg 317(H) <5 mIU/ml 04/16/2017 9:38 EDT [facility] Comment: Reference Range: Negative = <5 Indeterminate = 5-25 recommend repeat in 48 hours. Positive = >25 Blood specimen (specimen) BLOOD SPECIMEN / Unknown 04/16/2017 8:37 EDT 04/16/2017 8:53 EDT Jenifer Baker MD CHEMISTRY & BLOO D GAS ORDERABLES [facility] [address] [place] [address] documented in this encounter Visit Diagnoses Diagnosis of unknown anatomic location- Primary state, incidental documented in this encounter Care Teams Material Specialist Relationship Specialty Start Date End Date Rita Quiroga MD [address] [place] [phone] PCP - General 04/13/17 documented as of this encounter
--- OUTSIDE RECORDS SUMMARY | 2024-07-21 03:17 | XMS_ITS | Encounter Summary ---
Author Organization [facility] Address [address] [place] [address] Care Team Providers Care Salesperson Shoes Name Role Phone Rita Quiroga MD Primary Care Provider [phone] Encounter Details Date Type Department Care Team (Late Contact Info) Description 04/23/2017 Phlebotomy Only [address] [address] Manager English, Outpatient Tubal without intrauterine (Primary Dx) Social [...] Preg 33(H) <5 mIU/ml 04/23/2017 15:36 EDT [facility] Comment: Reference Range: Negative = <5 Indeterminate = 5-25 recommend repeat in 48 hours. Positive = >25 Blood specimen (specimen) BLOOD SPECIMEN / Unknown 04/23/2017 11:22 EDT 04/23/2017 12:58 EDT Jenifer Baker MD CHEMISTRY & BLOO D GAS ORDERABLES [facility] [address] [place] [address] documented in this encounter Visit Diagnoses Diagnosis Tubal without intrauterine - Primary documented in this encounter Care Teams Salesperson Shoes Relationship Specialty Start Date End Date Rita Quiroga MD [address] [place] [phone] PCP - General 04/13/17 documented as of this encounter
--- OUTSIDE RECORDS SUMMARY | 2024-07-21 03:17 | XMS_ITS | Encounter Summary ---
Author Organization [facility] Address [address] [place] [address] Care Team Providers Care Environmental Technology Professor Name Role Phone Rita Quiroga MD Primary Care Provider [phone] Reason for Visit * Reason Comments Contraception Nexplanon insert Encounter Details Date Type Department Care Team ([facility] Contact Info) Description 05/12/2017 9:00 EDT Office Visit [facility] Women's Services - [address] [address] Jenifer Baker MD [address] [place] [address] [address] [place] [address] Nexplanon insertion (Primary Dx); Routine [...] physician and patient. Dressing applied. Lot # [id number] Exp date 03/2018 Patient sent to the [...] AND S EROLOGY ORDERABLES Performing Organization Address [facility] de Phone Number [facility] [address] [place] [address] * HIV 1/2 ANTIBODY (05/12/2017 9:37 EDT) HIV 1/2 Antibody Negative Negative 05/12/20 17 12:31 EDT [facility] Comment: New methodology in use 03/18/17. Fourth generation assay performed on the Siemens Freedom2aur. If acute HIV-1 infection is suspected in a high risk patient, submit plasma specimen for HIV-1 RNA quantification test. Blood specimen (specimen) BLOOD SPECIMEN / Unknown 05/12/2017 9:37 EDT 05/12/2017 9:55 EDT Jenifer Baker MD IMMUNOLOGY AND S EROLOGY ORDERABLES Performing Organization Address [facility] de Phone Number [facility] [address] [place] [address] * CHLAMYDIA/N. GONORRHOEAE AMPLIFIED RNA, URINE (05/12/2017 9:26 EDT) Chlamydia Result Negative 05/13/20 17 14:32 EDT [facility] Comment: This test was developed and its performance characteristics determined by [facility]. It has not been cleared or [...] developed and its performance characteristics determined by [facility]. It has not been cleared or [...] - G ENERAL ORDERABLES Performing Organization Address City/[facility]/ZIP Co de Phone Number [facility] [address] [place] [phone] * POCT TEST, CLINITEK (05/12/2017 9:12 EDT) UPT Result Neg Neg 05/12/2017 9:23 EDT [facility] financial investment manager ID [id number] 05/12/2017 9:23 EDT [facility] Comment:Test performed at [facility] Urine specimen (specimen) URINE / Unknown 05/12/2017 9:12 EDT 05/12/2017 9:23 EDT Jenifer Baker MD POINT OF CARE TE ST ORDERABLES Performing Organization Address [facility] Co de Phone Number [facility] [address] [place] [address] documented in this encounter Visit Diagnoses Diagnosis [...] mg documented in this encounter Care Teams Environmental Technology Professor Relationship Specialty Start Date End Date Rita Quiroga MD [address] [place] [phone] PCP - General 04/13/17 documented as of this encounter
--- OUTSIDE RECORDS SUMMARY | 2024-07-21 03:17 | XMS_ITS | Encounter Summary ---
Author Organization [facility] Address [address] [place] [address] Care Team Providers Care Clinic Director Name Role Phone Rita Quiroga MD Primary Care Provider [phone] Reason for Visit * Reason Onset Date Comments Ectopic 04/24/2017 Encounter Details Date Type Department Care Team ([facility] Contact Info) Description 04/24/2017 Telephone [facility] Women's Services - [address] [address] Leni Delgado RN Ectopic Social History Tobacco [...] Encounter - Leni Delgado RN - 04/24/2017 9911 EDT Roxanne is wondering if it would be ok, with her dx, to go on a canoe trip this weekend; she would be doing low level activity and be about 45 minutes away from a hospital. Discussed with Dr. Baker and called Roxanne back to made here aware this would be OK for her to do. Encouraged to call with any additional questions/concerns. documented in this encounter Plan of Treatment Not on file documented as of this encounter Visit Diagnoses Not on filedocumented in this encounter Care Teams Clinic Director Relationship Specialty Start Date End Date Rita Quiroga MD [address] [place] [phone] PCP - General 04/13/17 documented as of this encounter
--- OUTSIDE RECORDS SUMMARY | 2024-07-21 03:17 | XMS_ITS | Encounter Summary ---
Author Organization [facility] Address [address] [place] [address] Care Team Providers Care Manager Shop Name Role Phone Rita Quiroga MD Primary Care Provider [phone] Reason for Visit * Reason Onset Date Comments Ectopic 04/25/2017 Encounter Details Date Type Department Care Team ([facility] Contact Info) Description 04/25/2017 Telephone [facility] Women's Services - [address] [address] Dania Ashley RN Ectopic Social History Tobacco [...] filedocumented in this encounter Care Teams Manager Shop Relationship Specialty Start Date End Date Rita Quiroga MD [address] [place] [phone] PCP - General 04/13/17 documented as of this encounter
--- OUTSIDE RECORDS SUMMARY | 2024-07-21 03:17 | XMS_ITS | Encounter Summary ---
Author Organization [facility] Address [address] [place] [address] Care Team Providers Care Computer Support Technician Name Role Phone Phyllis Vega MD Primary Care Provider [phone] Encounter Details Date Type Department Care Team ([facility] [address] [facility] Contact Info) Description 06/07/2011 Abstract Used for ABSTRACTING Data [phone] Daljit Dyer MD 111 [facility], [facility] 5 [place] [address] Social History Tobacco Use Types [...] on filedocumented in this encounter Care Teams Computer Support Technician Relationship Specialty Start Date End Date Phyllis Vega MD [address] [place] [phone] PCP - General 03/24/09 04/12/17 documented as of this encounter
--- OUTSIDE RECORDS SUMMARY | 2024-07-21 03:17 | XMS_ITS | Encounter Summary ---
Author Organization [facility] Address [address] [place] [address] Care Team Providers Care Field Technical Support Consultant Name Role Phone Rita Quiroga MD Primary Care Provider [phone] Encounter Details Date Type Department Care Team (Late Contact Info) Description 04/30/2017 Phlebotomy Only [address] [address] Pharmacy Intake Coordinator, Outpatient Tubal without intrauterine (Primary Dx) Social [...] Preg <5 <5 mIU/ml 04/30/2017 14:14 EDT [facility] Comment: Reference Range: Negative = <5 Indeterminate = 5-25 recommend repeat in 48 hours. Positive = >25 Blood specimen (specimen) BLOOD SPECIMEN / Unknown 04/30/2017 12:41 EDT 04/30/2017 12:55 EDT Jenifer Baker MD CHEMISTRY & BLOO D GAS ORDERABLES [facility] [address] [place] [address] documented in this encounter Visit Diagnoses Diagnosis Tubal without intrauterine - Primary documented in this encounter Care Teams Field Technical Support Consultant Relationship Specialty Start Date End Date Rita Quiroga MD [address] [place] [phone] PCP - General 04/13/17 documented as of this encounter
--- OUTSIDE RECORDS SUMMARY | 2024-07-21 03:17 | XMS_ITS | Encounter Summary ---
Author Organization [facility] Address [address] [place] [address] Care Team Providers Care Aws Consultant Name Role Phone Rita Quiroga MD Primary Care Provider [phone] Encounter Details Date Type Department Care Team (Late st Contact Info) Description 04/30/2017 9:55 EDT - 04/30/2017 23:59 EDT Hospital Encounter [facility] [address] [place] [address] Jenifer Baker MD [address] [place] [address], [facility] [address] [place] [address] Discharge Disposition: Home or Self [...] on filedocumented in this encounter Care Teams Aws Consultant Relationship Specialty Start Date End Date Rita Quiroga MD [address] [place] [phone] PCP - General 04/13/17 documented as of this encounter
--- OUTSIDE RECORDS SUMMARY | 2024-07-21 03:17 | XMS_ITS | Encounter Summary ---
Author Organization [facility] Address [address] [place] [address] Care Team Providers Care Rockboard Lather Name Role Phone Phyllis Vega MD Primary Care Provider [phone] Encounter Details Date Type Department Care Team (Late st Contact Info) Description 04/12/2017 Orders Only Non [facility] Ancillary Services Christine Michelle, CONTROL OFFICER MANAGER [address] [place] [address] Other specified related conditions, first [...] Preg 267(H) <5 mIU/ml 04/13/2017 11:33 EDT [facility] Comment: Reference Range: Negative = <5 Indeterminate = 5-25 recommend repeat in 48 hours. Positive = >25 Blood specimen (specimen) BLOOD SPECIMEN / Unknown 04/13/2017 9:36 EDT 04/13/2017 10:49 EDT Christine Michelle CONTROL OFFICER MANAGER CHEMISTRY & BLOOD G ORDERABLES [facility] [address] [place] [address] documented in this encounter Visit Diagnoses Diagnosis Other specified related conditions, first trimester- Primary documented in this encounter Orders Lab Orders Without Results Count Last Ordered D ate First Ordered Date HCG FOR 1 04/12/2017 documented in this encounter Care Teams Rockboard Lather Relationship Specialty Start Date End Date Phyllis Vega MD [address] [place] [phone] PCP - General 03/24/09 04/12/17 documented as of this encounter
--- OUTSIDE RECORDS SUMMARY | 2024-07-21 03:17 | XMS_ITS | Encounter Summary ---
Author Organization [facility] Address [address] [place] [address] Care Team Providers Care Liner Man Name Role Phone Phyllis Vega MD Primary Care Provider [phone] Encounter Details Date Type Department Care Team ([facility] Contact Info) Description 04/10/2011 Abstract Used for ABSTRACTING Data [phone] Terry Sal MD 111 [facility], [facility] 5 [place] [address] Social History Tobacco Use Types [...] on filedocumented in this encounter Care Teams Liner Man Relationship Specialty Start Date End Date Phyllis Vega MD [address] [place] [phone] PCP - General 03/24/09 04/12/17 documented as of this encounter
--- OUTSIDE RECORDS SUMMARY | 2024-07-21 03:17 | XMS_ITS | Encounter Summary ---
Author Organization [facility] Address [address] [place] [address] Care Team Providers Care Leather Sprayer Name Role Phone Rita Quiroga MD Primary Care Provider [phone] Reason for Visit * Reason Onset Date Comments Results 05/14/2017 Encounter Details Date Type Department Care Team (Late Contact Info) Description 05/14/2017 Telephone [facility] Women's Services - [address] [address] Fide Saenz, SANDRO Results Social History Tobacco [...] blood work done 05/12/17 was negative. Given COUNTY MANAGER Triage # for further questions. * Telephone Encounter - Fide Saenz RN - 05/14/[address] Baker: Please let Roxanne know that her STI testing was all negative. documented in this encounter Plan of Treatment Not on file documented as of this encounter Visit Diagnoses Not on filedocumented in this encounter Care Teams Leather Sprayer Relationship Specialty Start Date End Date Rita Quiroga MD [address] [place] [phone] PCP - General 04/13/17 documented as of this encounter
--- OUTSIDE RECORDS SUMMARY | 2024-07-21 03:17 | XMS_ITS | Encounter Summary ---
Author Organization [facility] Address [address] [place] [address] Care Team Providers Care Specimen Technician Name Role Phone Phyllis Vega MD Primary Care Provider [phone] Encounter Details Date Type Department Care Team ([facility] Contact Info) Description 12/30/2011 13:31 EST - 12/30/2011 23:59 EST Hospital Encounter [facility] [address] [place] [address] Daljit Dyer MD 111 [facility], [facility] 5 [place] [address] Discharge Disposition: Home or Self [...] Code Departure Means Destination Home or Self Skilled Nursing documented in this encounter Plan of Treatment Not on file documented as of this encounter Visit Diagnoses Not on filedocumented in this encounter Care Teams Specimen Technician Relationship Specialty Start Date End Date Phyllis Vega MD [address] [place] [phone] PCP - General 03/24/09 04/12/17 documented as of this encounter
--- OUTSIDE RECORDS SUMMARY | 2024-07-21 03:17 | XMS_ITS | Encounter Summary ---
Author Organization [facility] Address [address] [place] [address] Care Team Providers Care Leadership Development Manager Name Role Phone Rita Quiroga MD Primary Care Provider [phone] Reason for Visit * Reason Onset Date Comments Ectopic 04/23/2017 Encounter Details Date Type Department Care Team ([facility] Contact Info) Description 04/23/2017 Telephone [facility] Women's Services - [address] [address] Leni Delgado RN Ectopic Social History Tobacco [...] Encounter - Leni Delgado, SANDRO - 04/23/2017 0584 EDT Component Latest Ref Rng & Units [...] for BCT with Dr. Baker 05/05/17. Aware SUPERVISOR MATRIX will call with her hcg next week, once available. Roxanne is agreeable to this plan and verbalized understanding. documented in this encounter Plan of Treatment Not on file documented as of this encounter Results * HCG FOR (04/30/2017 12:41 EDT) Quant Beta HCG, Preg <5 <5 mIU/ml 04/30/2017 14:14 EDT [facility] Comment: Reference Range: Negative = <5 Indeterminate = 5-25 recommend repeat in 48 hours. Positive = >25 Blood specimen (specimen) BLOOD SPECIMEN / Unknown 04/30/2017 12:41 EDT 04/30/2017 12:55 EDT Jenifer Baker MD CHEMISTRY & BLOO D GAS ORDERABLES [facility] [address] [place] [address] documented in this encounter Visit Diagnoses Diagnosis Tubal without intrauterine - Primary documented in this encounter Care Teams Leadership Development Manager Relationship Specialty Start Date End Date Rita Quiroga MD [address] [place] [phone] PCP - General 04/13/17 documented as of this encounter
--- OUTSIDE RECORDS SUMMARY | 2024-07-21 03:17 | XMS_ITS | Encounter Summary ---
Author Organization [facility] Address [address] [place] [address] Care Team Providers Care Railroad Signal And Switch Operator Name Role Phone Phyllis Vega MD Primary Care Provider [phone] Reason for Visit * Reason Comments Migraine Ref from Dr. Sal and [facility] office. Ocular migraine, Myopia, Vitreous syneresis and [...] Info) Description 06/12/2011 8:00 EDT Office Visit [facility] Ophthalmology - [address] [address] Daljit Dyer MD [address] [facility] Level [address] [place] [address] Social History Tobacco Use Types [...] - 06/20/2011 0803 EDT DIVISION OF OPHTHALMOLOGY [facility] June 12, 2011 Sixto Lopes MD [facility] - Ophthalmology [address] [place] [address] Lopes: Roxanne Beltran was examined [...] MD - GIORGI Job ID: Doc ID: [id number] Ext Doc ID: [id number] cc: MD Phyllis Bal MD * Daljit Dyer MD - 06/12/2011 0947 EDT Base Ophthalmology Exam Visual Acuity Right Left Dist sc 20/20 20/20 Near cc J1+ J1+ Method: Snellen - Linear Correction: Glasses Tonometry Right Left Pressure 13 13 Method: Applanation Time: 8:56 Wearing Rx Sphere Cylinder Hayes Right +1.25 +2.50 92 Left -0.25 +0.25 98 Age: 5 yrs Type: SINGLE Manifest Refraction (Auto) Sphere Cylinder Hayes Dist Right +1.25 +2.00 91 20/15 Left [...] has been dictated and scanned. Test Performed: [facility] 24-2 Indications for test: Ocular migraine Results/Findings: WNL each eye Plan: FU prn documented in this encounter Miscellaneous Notes * Scanned Note-Null - Eliel, Match Maker - 06/14/2011 1131 EDT documented in this [...] in both eyes Wearing Rx Sphere Cylinder Hayes Right eye +1.25 +2.50 92 Left eye -0.25 +0.25 98 Age: 5 yrs Type: SINGLE Manifest Refraction (Auto) Sphere Cylinder Hayes Dist [facility] Right eye +1.25 +2.00 91 20/15 Left eye -1.25 +0.25 111 20/15 Care Teams Railroad Signal And Switch Operator Relationship Specialty Start Date End Date Phyllis Vega MD [address] [place] [phone] PCP - General 03/24/09 04/12/17 documented as of this encounter
--- OUTSIDE RECORDS SUMMARY | 2024-07-21 03:17 | XMS_ITS | Encounter Summary ---
Author Organization [facility] Address [address] [place] [address] Care Team Providers Care Terminal Operations Supervisor Name Role Phone Rita Quiroga MD Primary Care Provider [phone] Reason for Visit * Reason Onset Date Comments Appointment Related 04/17/2017 Encounter Details Date Type Department Care Team (Late st Contact Info) Description 04/17/2017 Telephone [facility] Dermatology [address] [address] Ana Hale, PA-C [address] [place] [address], [address] [place] [address] Appointment Related Social History Tobacco [...] referred on 07/08/[address] Rita Quiroga, [facility] for lesion, face - spot on nose [...] darker red in the middle, then gets supervisor electron tube processing towards the edges Fairly circular Denies pain, [...] on filedocumented in this encounter Care Teams Terminal Operations Supervisor Relationship Specialty Start Date End Date Rita Quiroga MD [address] [place] [phone] PCP - General 04/13/17 documented as of this encounter
--- OUTSIDE RECORDS SUMMARY | 2024-07-21 03:17 | XMS_ITS | Encounter Summary ---
Author Organization [facility] Address [address] [place] [address] Care Team Providers Care Seed Buyer Name Role Phone Rita Quiroga MD Primary Care Provider [phone] Reason for Visit * Reason Onset Date Comments Labs Only 04/17/2017 Encounter Details Date Type Department Care Team ([facility] Contact Info) Description 04/17/2017 Orders Only [facility] Women's Services - [address] [address] Leni Delgado RN Tubal without intrauterine (Primary [...] Notes * Leni Delgado, SANDRO - 04/17/2017 0912 EDT Ordered placed for day 4 beta hcg, due Friday04/20/17. documented in this encounter Plan of Treatment Not on file documented as of this encounter Results * (ABNORMAL) HCG FOR (04/20/2017 10:43 EDT) Quant Beta HCG, Preg 63(H) <5 mIU/ml 04/20/2017 13:22 EDT [facility] Comment: Reference Range: Negative = <5 Indeterminate = 5-25 recommend repeat in 48 hours. Positive = >25 Blood specimen (specimen) BLOOD SPECIMEN / Unknown 04/20/2017 10:43 EDT 04/20/2017 12:32 EDT Jenifer Baker MD CHEMISTRY & BLOO D GAS ORDERABLES Performing Organization Address City/State/[facility] Co de Phone Number [facility] [address] [place] [address] documented in this encounter Visit Diagnoses Diagnosis Tubal without intrauterine - Primary documented in this encounter Care Teams Seed Buyer Relationship Specialty Start Date End Date Rita Quiroga MD [address] [place] [phone] PCP - General 04/13/17 documented as of this encounter
--- OUTSIDE RECORDS SUMMARY | 2024-07-21 03:17 | XMS_ITS | Encounter Summary ---
Author Organization [facility] Address [address] [place] [address] Care Team Providers Care Centrifuge Separator Operator Name Role Phone Rita Quiroga MD Primary Care Provider [phone] Reason for Visit * Reason Onset Date Comments Ectopic 04/21/2017 Encounter Details Date Type Department Care Team ([facility] Contact Info) Description 04/21/2017 Telephone [facility] Women's Services - [address] [address] Leni Delgado RN Ectopic Social History Tobacco [...] Preg 33(H) <5 mIU/ml 04/23/2017 15:36 EDT [facility] Comment: Reference Range: Negative = <5 Indeterminate = 5-25 recommend repeat in 48 hours. Positive = >25 Blood specimen (specimen) BLOOD SPECIMEN / Unknown 04/23/2017 11:22 EDT 04/23/2017 12:58 EDT Jenifer Baker MD CHEMISTRY & BLOO D GAS ORDERABLES [facility] [address] [place] [address] documented in this encounter Visit Diagnoses Diagnosis Tubal without intrauterine - Primary documented in this encounter Care Teams Centrifuge Separator Operator Relationship Specialty Start Date End Date Rita Quiroga MD [address] [place] [phone] PCP - General 04/13/17 documented as of this encounter
--- OUTSIDE RECORDS SUMMARY | 2024-07-21 03:17 | XMS_ITS | Encounter Summary ---
Author Organization [facility] Address [address] [place] [address] Care Team Providers Care Umbrella Tipper Name Role Phone Rita Quiroga MD Primary Care Provider [phone] Encounter Details Date Type Department Care Team (Late Contact Info) Description 04/15/2017 Phlebotomy Only [address] [address] Developing Machine Tender, Outpatient Other specified related conditions, [...] Preg 287(H) <5 mIU/ml 04/15/2017 11:32 EDT [facility] Comment: Reference Range: Negative = <5 Indeterminate = 5-25 recommend repeat in 48 hours. Positive = >25 Blood specimen (specimen) BLOOD SPECIMEN / Unknown 04/15/2017 10:03 EDT 04/15/2017 10:45 EDT Christine Michelle HEALTH CARE COORDINATOR CHEMISTRY & BLOOD G ORDERABLES [facility] [address] [place] [address] documented in this encounter Visit Diagnoses Diagnosis Other specified related conditions, first trimester- Primary documented in this encounter Care Teams Umbrella Tipper Relationship Specialty Start Date End Date Rita Quiroga MD [address] [place] [phone] PCP - General 04/13/17 documented as of this encounter
--- OUTSIDE RECORDS SUMMARY | 2024-07-21 03:17 | XMS_ITS | Encounter Summary ---
Author Organization [facility] Address [address] [place] [address] Care Team Providers Care Social Work Case Manager Name Role Phone Phyllis Vega MD Primary Care Provider [phone] Reason for Visit * Reason Onset Date Comments Provider Referred 07/08/2016 Encounter Details Date Type Department Care Team (Late st Contact Info) Description 07/08/2016 Telephone [facility] Dermatology 3rd Floor [address] [address] Dee Steen MD [address] [place] [address], [facility] 5 [place] [address] Provider Referred Social History Tobacco [...] on filedocumented in this encounter Care Teams Social Work Case Manager Relationship Specialty Start Date End Date Phyllis Vega MD [address] [place] [phone] PCP - General 03/24/09 04/12/17 documented as of this encounter
--- OUTSIDE RECORDS SUMMARY | 2024-07-21 03:17 | XMS_ITS | Encounter Summary ---
Author Organization [facility] Address [address] [place] [address] Care Team Providers Care Manager Photography Name Role Phone Rita Quiroga MD Primary Care Provider [phone] Encounter Details Date Type Department Care Team (Latest Contact Info) Description 04/13/2017 9:25 EDT - 04/13/2017 23:59 EDT Hospital Encounter [address] [address] Christine Michelle, NET MAKING SUPERVISOR [address] [place] [address] Discharge Disposition: Auto Discharge Social [...] filedocumented in this encounter Care Teams Manager Photography Relationship Specialty Start Date End Date Rita Quiroga MD [address] [place] [phone] PCP - General 04/13/17 documented as of this encounter
--- OUTSIDE RECORDS SUMMARY | 2024-07-21 03:17 | XMS_ITS | Encounter Summary ---
Author Organization [facility] Address [address] [place] [address] Care Team Providers Care Personal Banking Assistant Name Role Phone Rita Quiroga MD Primary Care Provider Encounter Details Date Type Department Care Team (Late st Contact Info) Description 04/16/2017 9:40 EDT Initial consult [facility] Women's Services - [address] [address] Jenifer Baker MD [address] [place] [address], [address] [place] [address] Aracely Zuleta MD Tubal without [...] Notes * Jenifer Baker MD - 04/16/2017 0901 EDT CC: [facility] by [facility] [...] MD * Leni Delgado RN - 04/16/2017 0976 EDT I. Patient here for Methotrexate Injection [...] limitations and signs/symptoms to watch for. Provided COAL SCREENER triage and on-call numbers, aware to call with any problems, issues or additional questions. Roxanne verbalized understand and agreement to this plan. She has no other questions at this time. documented in this encounter Procedure Notes * Jenifer Baker MD - 04/16/2017 0946 EDT Procedure: Procedures Procedure Note: IUD Arm [...] 2016 documented in this encounter Care Teams Personal Banking Assistant Relationship Specialty Start Date End Date Rita Quiroga MD [address] [place] [phone] PCP - General 04/13/17 documented as of this encounter
--- OUTSIDE RECORDS SUMMARY | 2024-07-21 03:17 | XMS_ITS | Encounter Summary ---
Author Organization [facility] Address [address] [place] [address] Care Team Providers Care Plastic Fabricator Name Role Phone Rita Quiroga MD Primary Care Provider Reason for Visit * Reason Onset Date Comments Appointment Related 05/08/2017 Encounter Details Date Type Department Care Team ([facility] Contact Info) Description 05/08/2017 Telephone [facility] Women's Services - [address] [address] Leni Delgado RN Appointment Related Social History [...] pm. Message left with Roxanne to call ELECTRON BEAM PHOTO MASK MAKER back with her selection. documented in this encounter Plan of Treatment Not on file documented as of this encounter Visit Diagnoses Not on filedocumented in this encounter Care Teams Plastic Fabricator Relationship Specialty Start Date End Date Rita Quiroga MD [address] [place] [phone] PCP - General 04/13/17 documented as of this encounter
--- OUTSIDE RECORDS SUMMARY | 2024-07-21 03:17 | XMS_ITS | Encounter Summary ---
Author Organization [facility] Address [address] [place] [address] Care Team Providers Care Plastic Welding Machine Operator Name Role Phone Phyllis Vega MD Primary Care Provider [phone] Encounter Details Date Type Department Care Team (Late Contact Info) Description 08/11/2015 Results Only [facility] [phone] Ace Melgoza, [address] [place] [address] Social History Tobacco Use Types Packs/Day Years [...] HARMANReneeOsitoMARCELINO ROXANNE Ricci ? Accession #: ? [id number] ? : ? 1990 (Age: 25) ??F [...] moderate amount of cytoplasm. ??The melanocytes show metal stud framer maturation. ??(Dr. Sales)/n Document reviewed and electronically [...] Shahida 08/14/2015 7:28 PM End of Report [facility] 08/11/2015 17:4 7 EDT 08/14/2015 17:47 EDT Ace Melgoza DO PATHOLOGY ORDER DALLIN [facility] [address] [place] [address] documented in this encounter Visit Diagnoses Not on filedocumented in this encounter Care Teams Plastic Welding Machine Operator Relationship Specialty Start Date End Date Phyllis Vega MD [address] [place] [phone] PCP - General 03/24/09 04/12/17 documented as of this encounter
--- OUTSIDE RECORDS SUMMARY | 2024-07-21 03:17 | XMS_ITS | Encounter Summary ---
Author Organization [facility] Address [address] [place] [address] Care Team Providers Care Breaster Name Role Phone Phyllis Vega MD Primary Care Provider [phone] Encounter Details Date Type Department Care Team (Latest Contact Info) Description 08/11/2015 8:09 EDT - 08/11/2015 23:59 EDT Hospital Encounter [address] [address] Unknown, Provider, Discharge Disposition: Home or Self [...] Code Departure Means Destination Home or Self Half-Way documented in this encounter Plan of Treatment Not on file documented as of this encounter Visit Diagnoses Not on filedocumented in this encounter Care Teams Breaster Relationship Specialty Start Date End Date Phyllis Vega MD [address] [place] [phone] PCP - General 03/24/09 04/12/17 documented as of this encounter
--- OUTSIDE RECORDS SUMMARY | 2024-07-21 03:17 | XMS_ITS | Encounter Summary ---
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 [...] management documented in this encounter Care Teams Director Talent Relationship Specialty Start Date End Date Rita Quiroga MD [address] [place] [phone] PCP - General 04/13/17 documented as of this encounter
--- OUTSIDE RECORDS SUMMARY | 2024-07-21 03:17 | XMS_ITS | Encounter Summary ---
Author Organization [facility] Address [address] [place] [address] Care Team Providers Care Banquet Kitchen Supervisor Name Role Phone Rita Quiroga MD Primary Care Provider [phone] Encounter Details Date Type Department Care Team (Late st Contact Info) Description 04/20/2017 10:33 EDT - 04/20/2017 23:59 EDT Hospital Encounter [address] [address] Jenifer Baker MD [address] [facility], [facility] [address] [place] [address] Discharge Disposition: Home or Self [...] on filedocumented in this encounter Care Teams Banquet Kitchen Supervisor Relationship Specialty Start Date End Date Rita Quiroga MD [address] [place] [phone] PCP - General 04/13/17 documented as of this encounter
--- OUTSIDE RECORDS SUMMARY | 2024-07-21 03:17 | XMS_ITS | Encounter Summary ---
Author Organization [facility] Address [address] [place] [address] Care Team Providers Care Credit Risk Analyst Name Role Phone Rita Quiroga MD Primary Care Provider [phone] Reason for Visit * Reason Comments New Patient Visit [facility] Skin Lesion Nose Encounter Details Date Type Department Care Team (Late st Contact Info) Description 04/23/2017 15:40 EDT Office Visit [facility] Dermatology [facility]th [facility] [address] [place] [address] Symone Moore MD PhD 111 [facility], Level [address] [place] [phone] Niall Garcia MD [address] [place] [phone] Spider angioma (Primary Dx) Social History [...] 15:41 * Niall Garcia MD - 04/23/2017 9260 EDT Dermatology Resident Clinic Visit Note Chief [...] the resident's/fellow's note. Symone Moore MD Dermatology [facility] documented in this encounter Plan of Treatment Not on file documented as of this encounter Visit Diagnoses Diagnosis Spider angioma- Primary Nevus, non-neoplastic documented in this encounter Care Teams Credit Risk Analyst Relationship Specialty Start Date End Date Rita Quiroga MD [address] [place] [phone] PCP - General 04/13/17 documented as of this encounter
--- OUTSIDE RECORDS SUMMARY | 2024-07-21 03:17 | XMS_ITS | Encounter Summary ---
Author Organization [facility] Address [address] [place] [address] Care Team Providers Care Pillow Filler Name Role Phone Rita Quiroga MD Primary Care Provider [phone] Encounter Details Date Type Department Care Team (Late Contact Info) Description 05/12/2017 Phlebotomy Only [address] [address] Power Technician, Outpatient Routine screening for STI (sexually transmitted [...] Syphilis Serology Negative 05/13/2017 13:24 EDT [facility] Comment:Reference Range: Neg ative Blood specimen (specimen) BLOOD SPECIMEN / Unknown 05/12/2017 9:37 EDT 05/12/2017 9:55 EDT Jenifer Baker MD IMMUNOLOGY AND S EROLOGY ORDERABLES Performing Organization Address [facility] Co de Phone Number [facility] [address] [place] [address] * HIV 1/2 ANTIBODY (05/12/2017 9:37 EDT) HIV 1/2 Antibody Negative Negative 05/12/20 12:31 EDT [facility] Comment: New methodology in use 03/18/17. Fourth generation assay performed on the [employer] Cardioaur. If acute HIV-1 infection is suspected in a high risk patient, submit plasma specimen for HIV-1 RNA quantification test. Blood specimen (specimen) BLOOD SPECIMEN / Unknown 05/12/2017 9:37 EDT 05/12/2017 9:55 EDT Jenifer Baker MD IMMUNOLOGY AND S EROLOGY ORDERABLES Performing Organization Address [facility] Co de Phone Number [facility] [address] [place] [address] documented in this encounter Visit Diagnoses Diagnosis Routine screening for STI (sexually transmitted infection)- Primary Screening examination for venereal disease documented in this encounter Care Teams Pillow Filler Relationship Specialty Start Date End Date Rita Quiroga MD [address] [place] [phone] PCP - General 04/13/17 documented as of this encounter
--- OUTSIDE RECORDS SUMMARY | 2024-07-21 03:17 | XMS_ITS | Encounter Summary ---
Author Organization [facility] Address [address] [place] [address] Care Team Providers Care Associate Sales Name Role Phone Phyllis Vega MD Primary Care Provider [phone] Encounter Details Date Type Department Care Team ([facility] Contact Info) Description 12/30/2011 Phlebotomy Only [address] [address] Integration Assistant, Outpatient Ocular migraine; Headache; Photopsia Social History [...] & BLOOD G ORDERABLES Performing Organization Address [facility] Co de Phone Number JULIO C K[facility] [address] [place] [address] * BUN (12/30/2011 13:42 EST) BUN 13 10 - 26 mg/dl [facility] Blood specimen (specimen) 12/30/2011 13:42 EST 12/30/2011 14:26 EST Daljit Dyer MD CHEMISTRY & BLOOD G ORDERABLES Performing Organization Address [facility] de Phone Number UJLIO C K[facility] [address] [place] [address] documented in this encounter Visit Diagnoses Diagnosis Ocular migraine Variants of migraine, not elsewhere classified, without mention of intractable migraine without mention of status migrainosus Headache(784.0) Headache Photopsia Other visual distortions and entoptic phenomena documented in this encounter Care Teams Associate Sales Relationship Specialty Start Date End Date Phyllis Vega MD [address] [place] [phone] PCP - General 03/24/09 04/12/17 documented as of this encounter
--- OUTSIDE RECORDS SUMMARY | 2024-07-21 03:18 | XMS_ITS | Encounter Summary ---
Author Organization [facility] Address [address] [place] [address] Care Team Providers Care It Web Development Consultant Name Role Phone Phyllis Vega MD Primary Care Provider [phone] Encounter Details Date Type Department Care Team ([facility] Contact Info) Description 06/11/2010 12:51 EDT - 06/11/2010 23:59 EDT Hospital Encounter [facility] [address] [place] [address] Mauri Ware MD [address] [place] [address] [address] [place] [address] Discharge Disposition: Home or Self [...] or Self Prison documented in this encounter Plan of Treatment [...] BLO OD GAS ORDERABLES Performing Organization Address [facility] Co de Phone Number [facility] [address] [place] [address] * TISSUE TRANSGLUTAMINASE ANTIBODY (06/11/2010 13:10 EDT) Tissue Transglutaminase Ab 1.28 <15.01 U/ml [facility] Blood specimen (specimen) 06/11/2010 13:10 EDT 06/11/2010 13:12 EDT Mauri Ware MD IMMUNOLOGY AND SEROLOGY ORDERABLES Performing Organization Address [facility] Co de Phone Number [facility] [address] [place] [address] * LIVER FUNCTION TESTS (06/11/2010 13:10 EDT) [...] BLO OD GAS ORDERABLES Performing Organization Address City/[facility]/ZIP Co de Phone Number [facility] [address] [place] [address] * (ABNORMAL) FERRITIN (06/11/2010 13:10 EDT) Pathologist [facility] Ferritin 5(L) 10 - 291 ng/mL [facility] C [facility] Blood specimen (specimen) 06/11/2010 13:10 EDT 06/11/2010 13:12 EDT Mauri Ware MD CHEMISTRY & BLO OD GAS ORDERABLES Performing Organization Address [facility]/ZIP Co de Phone Number [facility] [address] [place] [address] * (ABNORMAL) IBC (06/11/2010 13:10 EDT) TIBC 554(H) 265 - 497 ug/dl [facility] Blood specimen (specimen) 06/11/2010 13:10 EDT 06/11/2010 13:12 EDT Mauri Ware MD CHEMISTRY & BLO OD GAS ORDERABLES Performing Organization Address City/[facility] Co de Phone Number [facility] [address] [place] [address] * IRON (06/11/2010 13:10 EDT) Iron 62 60 - 180 ug/dl [facility] Blood specimen (specimen) 06/11/2010 13:10 EDT 06/11/2010 13:12 EDT Mauri Ware MD CHEMISTRY & BLO OD GAS ORDERABLES Performing Organization Address [facility] Co de Phone Number [facility] [address] [place] [address] * (ABNORMAL) HEMAGRAM (06/11/2010 13:10 EDT) WBC [...] & PF 4 ORDERABLES Performing Organization Address City/[facility] Co de Phone Number [facility] [address] [place] [address] documented in this encounter Visit Diagnoses Not on filedocumented in this encounter Care Teams It Web Development Consultant Relationship Specialty Start Date End Date Phyllis eVga MD [address] [place] [phone] PCP - General 03/24/09 04/12/17 documented as of this encounter
--- OUTSIDE RECORDS SUMMARY | 2024-07-21 03:18 | XMS_ITS | Encounter Summary ---
Author Organization [facility] Address [address] [place] [address] Care Team Providers Care Landscape Horticulture Instructor Name Role Phone Phyllis Vega MD Primary Care Provider [phone] Encounter Details Date Type Department Care Team (Late Contact Info) Description 2009 Office Visit [facility] [address] [place] [address] Student, T System [employer] Social History Tobacco Use Types Packs/Day Years Used Date Smoking Tobacco: Never Assessed Sex and Gender Information Value Date Recorded Sex Assigned at Not on file Gender Identity Not on file Sexual Orientation Not on file documented as of this encounter Progress Notes * Eliel, Conv Edge Burnisher Uppers - 03/10/2010 1676 EDT Care Center - Physician Summary Registration [...] Follow-up: ROXY LANE MD, Psych, , FA, [address] [place] [address], [facility]. Follow up in about one week. Call for an appointment. (Electronically signed by Laura Flores, 2009 15:27) Care Center - Nursing Summary Registration Date/Time: 2009 10:57 TRIAGE Initial Assessment O2 saturation: 100% room air. --1131 Parmelemika Flannery, R.N. (Pt in NAD. Able to speak in full sentances.). --1131 Parmele Levton, R.N. BP: 130 / 60 sitting R arm manual. HR: 58 regular. RR: 16 regular (unlabored). Temp: 99 (temporal).--1141 Parmelemika Flannery, R.N.. Medications (nuvo-ring BCP). Prilosec: 10 mg daily. --1141 Parmelemika Oharaton, R.N.. Allergies No known drug allergies. --1141 Parmele Mayankimpton, R.N.. History Chief Complaint: SHORTNESS OF BREATH and (anxiety). This is a recurrent problem (3 weeks ago). Pain level now: 0/10. The patient has had a mild cough. (Feelslike she can't take a deep enough breath). Treatment CORPORATE SECURITY MANAGER: None. PAST HX: Immunizations: up-to-date. Last normal [...] nurse per protocol and sent to lab: [facility]. --1440 Luis Alberto Flannery R.N.. DISPOSITION / DISCHARGE Condition at departure: unchanged. Patient reports pain level on departure as 0/10. No learning barriers present. Discharge instructions reviewed with the patient. Reviewed medication side effects, precautions, dosing and course; prescription (s) given to the patient. Patient verbalized understanding. Written instructions provided in Croatian. The patient was discharged home. The patient left the Emergency Department ambulatory and via private vehicle. Patient driving. --1525 Luis Alberto Flannery R.N.. Locked/Released at 2009 15:25 by Luis Alberto Flannery R.N. documented in this encounter Plan of Treatment Not on file documented as of this encounter Visit Diagnoses Not on filedocumented in this encounter Care Teams Landscape Horticulture Instructor Relationship Specialty Start Date End Date Phyllis Vega MD [address] [place] [phone] PCP - General 03/24/09 04/12/17 documented as of this encounter
--- OUTSIDE RECORDS SUMMARY | 2024-07-21 03:18 | XMS_ITS | Encounter Summary ---
Author Organization [facility] Address [address] [place] [address] Care Team Providers Care Tape Control Skin Or Spar Mill Operator Name Role Phone Phyllis Vega MD Primary Care Provider [phone] Encounter Details Date Type Department Care Team (Late st Contact Info) Description 09/13/2009 Abstract [facility] Women's Services [address] [address] Phyllis Vega MD [address] [place] [phone] Insertion of Intrauterine Contraceptive Device Social History [...] device documented in this encounter Care Teams Tape Control Skin Or Spar Mill Operator Relationship Specialty Start Date End Date Phyllis Vega MD [address] [place] [phone] PCP - General 03/24/09 04/12/17 documented as of this encounter
--- OUTSIDE RECORDS SUMMARY | 2024-07-21 03:18 | XMS_ITS | Encounter Summary ---
Author Organization [facility] Address [address] [place] [address] Care Team Providers Care Liquid Natural Gas Plant Operator Name Role Phone Phyllis Vega MD Primary Care Provider [phone] Encounter Details Date Type Department Care Team ([facility] Contact Info) Description 09/21/2010 18:09 EDT - 09/21/2010 18:10 EDT Hospital Encounter [facility] - Other [address] [place] [address] Aracely Palma MD [address] [place] [phone] Discharge Disposition: Home or Self Care [...] on filedocumented in this encounter Care Teams Liquid Natural Gas Plant Operator Relationship Specialty Start Date End Date Phyllis Vega MD [address] [place] [phone] PCP - General 03/24/09 04/12/17 documented as of this encounter
--- OUTSIDE RECORDS SUMMARY | 2024-07-21 03:18 | XMS_ITS | Encounter Summary ---
Author Organization [facility] Address [address] [place] [address] Care Team Providers Care Peripheral Edp Equipment Operator Name Role Phone Phyllis Vega MD Primary Care Provider [phone] Encounter Details Date Type Department Care Team (Latest Contact Info) Description 2009 15:04 EDT - 2009 15:05 EDT Hospital Encounter [facility] - Other [address] [place] [address] Laura Bravo PA-C [address] [place] [phone] Discharge Disposition: Home or Self Care Social [...] on filedocumented in this encounter Care Teams Peripheral Edp Equipment Operator Relationship Specialty Start Date End Date Phyllis Vega MD [address] [place] [phone] PCP - General 03/24/09 04/12/17 documented as of this encounter
--- OUTSIDE RECORDS SUMMARY | 2024-07-21 03:18 | XMS_ITS | Encounter Summary ---
Author Organization [facility] Address [address] [place] [address] Care Team Providers Care Cloth Colors Examiner Name Role Phone Phyllis Vega MD Primary Care Provider [phone] Encounter Details Date Type Department Care Team (Latest Contact Info) Description 05/08/2009 9:30 EDT - 05/08/2009 23:59 EDT Hospital Encounter [facility] [address] [place] [address] Desirae Estrada, [facility] [address] [place] [address] Discharge Disposition: Home or Self [...] on filedocumented in this encounter Care Teams Cloth Colors Examiner Relationship Specialty Start Date End Date Phyllis Vega MD [address] [place] [phone] PCP - General 03/24/09 04/12/17 documented as of this encounter
--- OUTSIDE RECORDS SUMMARY | 2024-07-21 03:18 | XMS_ITS | Encounter Summary ---
Author Organization [facility] Address [address] [place] [address] Care Team Providers Care Echo Tech Name Role Phone Unavailable Primary Care Provider Unavailabl e Encounter Details Date Type Department Care Team (Latest Contact Info) Description 10/10/2008 10:20 EST - 10/10/2008 11:59 EST Hospital Encounter [facility] [address] [place] [address] Angela Eubanks MD [address] [place] [phone] Discharge Disposition: Auto Discharge Social History [...] SONDRA ESTEBAN ORDERABLES Performing Organization Address City/State/[facility] Co de Phone Number [facility] C [facility] [address] [place] [address] * ENDOMYSIAL ANTIBODY, SERUM (10/10/2008 12:13 EST) Endomysial Antibodies Negative Reference range: Negative Analyte Specific Reagent ? This test was developed and its performance characteristics ? determined by Laboratory Medicine and Pathology, [facility]. This test has not been cleared or ? approved by the U.S. Food and Drug Administration. ? Performed or Referred by: [facility] Dpt of Lab Med and Path, [address] [place] [address], Lab Dir: Doroteo Viveros III, ? MD ? JULIO C SHEPHERD 10/10/2008 12:1 3 EST 10/10/2008 12:20 EST Angela Eubanks MD IMMUNOLOGY AND SONDRA GARCIAABLES Performing Organization Address City/State/[facility] Co de Phone Number [facility] [address] [place] [address] * CERULOPLASMIN (10/10/2008 12:13 EST) Cerulplasmin 25.7Reference range: 14.0 to 47.8 Unit: mg/dL Please note change in methodology and reference ? values effective 08/23/2008. ? Performed or Referred by: [facility] Dpt of Lab Med and Path, [address] ? [place] [address], Lab Dir: Doroteo Viveros III, ? MD ? [facility] 10/10/2008 12:1 3 EST 10/10/2008 12:20 EST Angela Eubanks MD CHEMISTRY & BLOOD GA S ORDERABLES Performing Organization Address [facility] de Phone Number [facility] [address] [place] [address] * ANTI NUCLEAR ANTIBODY (10/10/2008 12:13 EST) Anti Nuclear Ab <40 0 - 40 Dils [facility] 10/10/2008 12:1 3 EST 10/10/2008 12:20 EST Angela Eubanks MD IMMUNOLOGY AND SEROL OGY ORDERABLES Performing Organization Address [facility] de Phone Number [facility] [address] [place] [address] * CK (10/10/2008 12:13 EST) CK 74 30 - 135 U/L [facility] 10/10/2008 12:1 3 EST 10/10/2008 12:20 EST Angela Eubanks MD CHEMISTRY & BLOOD GA S ORDERABLES Performing Organization Address [facility] de Phone Number [facility] [address] [place] [address] * (ABNORMAL) LIVER FUNCTION TESTS (10/10/2008 12:13 [...] EST Angela Eubanks MD CHEMISTRY & BLOOD TX S ORDERABLES Performing Organization Address [facility] de Phone Number [facility] [address] [place] [address] * LIPID PROFILE (10/10/2008 12:13 EST) Pathologist [facility] Cholesterol 145 mg/dl [facility] Comment: Desirable:<200 Borderline High:200-239 High:>nn=359 Triglycerides 60 35 - 160 mg/dl [facility] HDL 40 mg/dl [facility] Comment: Low:<40 High(Desirable):>or=60 LDL, Calculated 93 mg/dl [facility] Comment: Optimal:<100 Above optimal:100-129 Borderline High:130-159 High:160-189 Very High:>lt=270 Chol/HDL Ratio 3.6 [facility] Fasting? Yes [facility] 10/10/2008 12:1 3 EST 10/10/2008 12:20 EST Angela Eubanks MD CHEMISTRY & BLOOD TX S ORDERABLES Performing Organization Address [facility] Phone Number [facility] [address] [place] [address] * RAD US ABDOMEN ONE ORGAN/QUADRANT (10/10/2008 [...]
--- OUTSIDE RECORDS SUMMARY | 2024-07-21 03:18 | XMS_ITS | Encounter Summary ---
Author Organization [facility] Address [address] [place] [address] Care Team Providers Care Electrical Installation Supervisor Name Role Phone Phyllis Vega MD Primary Care Provider [phone] Encounter Details Date Type Department Care Team ([facility] Contact Info) Description 09/21/2010 Results Only [facility] [phone] Aracely Palma MD [address] [place] [phone] Social History Tobacco Use Types Packs/Day [...] JA, ROXANNE V ? Accession #: ? [id number] ? : ? 1990 (Age: 20) ??F [...] MD PATHOLOGY ORDERABL ES Performing Organization Address City/State/[facility] Co de Phone Number JULIO C SHEPHERD [address] [place] [address] documented in this encounter Visit Diagnoses Not on filedocumented in this encounter Care Teams Electrical Installation Supervisor Relationship Specialty Start Date End Date Phyllis Vega MD [address] [place] [phone] PCP - General 03/24/09 04/12/17 documented as of this encounter
--- OUTSIDE RECORDS SUMMARY | 2024-07-21 03:18 | XMS_ITS | Encounter Summary ---
Author Organization [facility] Address [address] [place] [address] Care Team Providers Care Gallery Assistant Name Role Phone Phyllis Vega MD Primary Care Provider [phone] Encounter Details Date Type Department Care Team (Late st Contact Info) Description 07/27/2010 12:48 EDT - 07/27/2010 23:59 EDT Hospital Encounter [facility] [address] [place] [address] Boo Jim MD [address] [facility], Level [address] [place] [address] Mauri Ware MD [address] [place] [address] [address] [place] [address] Discharge Disposition: Home or Self [...] or Self Assisted documented in this encounter Procedure Notes * [...] on filedocumented in this encounter Care Teams Gallery Assistant Relationship Specialty Start Date End Date Phyllis Vega MD [address] [place] [phone] PCP - General 03/24/09 04/12/17 documented as of this encounter
--- OUTSIDE RECORDS SUMMARY | 2024-07-21 03:18 | XMS_ITS | Encounter Summary ---
Author Organization [facility] Address [address] [place] [address] Care Team Providers Care Asphalt Paving Superintendent Name Role Phone Phyllis Vega MD Primary Care Provider [phone] Encounter Details Date Type Department Care Team ([facility] st Contact Info) Description 05/25/2009 15:00 EDT - 05/25/2009 23:59 EDT Hospital Encounter [facility] Mood & Anxiety - [place] [address] [place] [address] Hazel Glasgow MD [address] [place] [phone] Discharge Disposition: Home or Self Care [...] Result No Chlamydia trachomatis DNA detected by content assistant mediated amplification. [facility] Result No Neisseria gonorrhoeae DNA detected by content assistant mediated amplification. [facility] 07/27/2009 18:0 2 EDT 07/27/2009 18:02 EDT Sixto Yip MD MSc MICROBIOLOG Y - GENERAL ORDERABLES Performing Organization Address City/State/[facility] Co de Phone Number [facility] [address] [place] [address] documented in this encounter Visit Diagnoses Not on filedocumented in this encounter Care Teams Asphalt Paving Superintendent Relationship Specialty Start Date End Date Phyllis Vega MD [address] [place] [phone] PCP - General 03/24/09 04/12/17 documented as of this encounter
--- OUTSIDE RECORDS SUMMARY | 2024-07-21 03:18 | XMS_ITS | Encounter Summary ---
Author Organization [facility] Address [address] [place] [address] Care Team Providers Care Therapeutic Recreation Director Name Role Phone Phyllis Vega MD Primary Care Provider [phone] Reason for Visit * Reason Comments Emesis pt throwing up and d iarrhea x 2 hours Encounter Details Date Type Department Care Team (Late st Contact Info) Description 02/16/2010 1:08 EDT - 02/16/2010 3:13 EDT Emergency [facility] Emergency Department - Main [place] [address] [place] [address] Isidoro Faria [place] [facility] [address] Emergency, [place], Viral gastroenteritis Discharge [...] the original note were not included. [facility] Patient Instructions Gastroenteritis: After Your Visit Your [...] Where can you learn more? Go to [email or web address] Enter N142 in the search box to learn more about Gastroenteritis: After Your Visit. ?? 2005 - 2008 [employer]. Care instructions adapted under license by [facility], [facility] . This care instruction is for use with your licensed healthcare professional. If you have questions about a medical condition or this instruction, always ask your healthcare professional. [employer] disclaims any warranty or liability for your [...] Given IV fluids and Zofran for nausea. [place] better and discharged home. Discharge Prescriptions New [...] 02/16/2010 documented in this encounter Care Teams Therapeutic Recreation Director Relationship Specialty Start Date End Date Phyllis Vega MD [address] [place] [phone] PCP - General 03/24/09 04/12/17 documented as of this encounter
--- OUTSIDE RECORDS SUMMARY | 2024-07-21 03:18 | XMS_ITS | Encounter Summary ---
Author Organization [facility] Address [address] [place] [address] Care Team Providers Care Corrugated Sheet Material Sheeter Name Role Phone Phyllis Vega MD Primary Care Provider [phone] Encounter Details Date Type Department Care Team (Late st Contact Info) Description 07/10/2010 Abstract [facility] Mood & Anxiety - [place] [address] [place] [address] Phyllis Vega MD [address] [place] [phone] Social History Tobacco Use Types Packs/Day [...] on filedocumented in this encounter Care Teams Corrugated Sheet Material Sheeter Relationship Specialty Start Date End Date Phyllis Vega MD [address] [place] [phone] PCP - General 03/24/09 04/12/17 documented as of this encounter
--- OUTSIDE RECORDS SUMMARY | 2024-07-21 03:18 | XMS_ITS | Encounter Summary ---
Author Organization [facility] Address [address] [place] [address] Care Team Providers Care Selenium Plant Operator Name Role Phone Phyllis Vega MD Primary Care Provider [phone] Encounter Details Date Type Department Care Team (Latest Contact Info) Description 2009 10:56 EDT - 2009 15:26 EDT Hospital Encounter [facility] [address] [address] Unknown, Provider, Discharge Disposition: Home or Self [...] & P F4 ORDERABLES Performing Organization Address City/State/[facility] Co de Phone Number [facility] [address] [place] [address] * CHEST PA AND LATERAL (2009 13:31 [...] unremarkable. Impression: No evidence of pneumonia. Laura Brvao PA-C IMG DIAGNOSTIC IMAGING ORDERABLES documented in this encounter Visit Diagnoses Not on filedocumented in this encounter Care Teams Selenium Plant Operator Relationship Specialty Start Date End Date Phyllis Vega MD [address] [place] [phone] PCP - General 03/24/09 04/12/17 documented as of this encounter
--- OUTSIDE RECORDS SUMMARY | 2024-07-21 03:18 | XMS_ITS | Encounter Summary ---
Author Organization [facility] Address [address] [place] [address] Care Team Providers Care Print Project Manager Name Role Phone Phyllis Vega MD Primary Care Provider [phone] Encounter Details Date Type Department Care Team (Late Contact Info) Description 07/27/2010 Results Only [facility] Gastroenterology - [facility] [address] [place] [address] JeanieVenkatesh MD [address] [place] [address] [address] [place] [address] Social History Tobacco Use Types [...] ROXANNE PERES V ? Accession #: ? [id number] ? : ? 1990 (Age: 20) ??F ? Collect Date: ? 07/27/2010 ? Location: ? [facility] ? Receive Date: ? 07/28/2010 ? Provider: VENKATESH MENDEZ MD ? Copy to: PHYLILS M PATNO MD ? Final Pathologic Diagnosis: [...] MD PATHOLOGY ORDER DALLIN [facility] [address] [place] [address] documented in this encounter Visit Diagnoses Not on filedocumented in this encounter Care Teams Print Project Manager Relationship Specialty Start Date End Date Phyllis Vega MD [address] [place] [phone] PCP - General 03/24/09 04/12/17 documented as of this encounter
--- OUTSIDE RECORDS SUMMARY | 2024-07-21 03:18 | XMS_ITS | Encounter Summary ---
Author Organization [facility] Address [address] [place] [address] Care Team Providers Care Pigment Weigher Name Role Phone Unavailable Primary Care Provider Unavailabl e Encounter Details Date Type Department Care Team (Late st Contact Info) Description 12/14/2008 9:45 [facility] Hospital Encounter [facility] [address] [place] [address] Unknown, Provider, Social History Tobacco Use Types [...]
--- OUTSIDE RECORDS SUMMARY | 2024-07-21 03:18 | XMS_ITS | Encounter Summary ---
Author Organization [facility] Address [address] [place] [address] Care Team Providers Care Sergeant At Arms Name Role Phone Phyllis Vega MD Primary Care Provider [phone] Encounter Details Date Type Department Care Team (Late st Contact Info) Description 11/16/2009 Abstract [facility] [address] [address] Phyllis Vega MD [address] [place] [phone] Other General Counseling and Advice for [...] management documented in this encounter Care Teams Sergeant At Arms Relationship Specialty Start Date End Date Phyllis Vega MD [address] [place] [phone] PCP - General 03/24/09 04/12/17 documented as of this encounter
--- OUTSIDE RECORDS SUMMARY | 2024-07-21 03:18 | XMS_ITS | Encounter Summary ---
Author Organization [facility] Address [address] [place] [address] Care Team Providers Care Stockbroking Dealer Name Role Phone Phyllis Vega MD Primary Care Provider [phone] Encounter Details Date Type Department Care Team (Late st Contact Info) Description 01/25/2010 Abstract [facility] Women's Services [address] [address] Phyllis eVga MD [address] [place] [phone] Social History Tobacco Use Types Packs/Day Years Used Date Smoking Tobacco: Never Assessed Sex and Gender Information Value Date Recorded Sex Assigned at Not on file Gender Identity Not on file Sexual Orientation Not on file documented as of this encounter Plan of Treatment Not on file documented as of this encounter Visit Diagnoses Not on filedocumented in this encounter Care Teams Stockbroking Dealer Relationship Specialty Start Date End Date Phyllis Vega MD [address] [place] [phone] PCP - General 03/24/09 04/12/17 documented as of this encounter
--- OUTSIDE RECORDS SUMMARY | 2024-07-21 03:18 | XMS_ITS | Encounter Summary ---
Author Organization [facility] Address [address] [place] [address] Care Team Providers Care Hospice Plan Administrator Name Role Phone Phyllis Vega MD Primary Care Provider Encounter Details Date Type Department Care Team (Late st Contact Info) Description 06/06/2010 Results Only [facility] [phone] Giulia Denton MD [address] [place] [address] Social History Tobacco Use Types Packs/Day Years [...] JA, ROXANNE V ? Accession #: ? [id number] ? : ? 1990 (Age: 20) ??F [...] Denton MD PATHOLOGY ORDERABLES Performing Organization Address City/State/[facility] Co de Phone Number [facility] [place] [address] [place] [address] documented in this encounter Visit Diagnoses Not on filedocumented in this encounter Care Teams Hospice Plan Administrator Relationship Specialty Start Date End Date Phyllis Vega MD [address] [place] [phone] PCP - General 03/24/09 04/12/17 documented as of this encounter
[2024-07-21 13:01] LABS: TSH (W/Ref FT4) 3.55 uIU/mL (0.36-3.74)
== END 2024-07-21 03:08 | disposition home or self-care (01) ==
PROVIDERS: PCP Family Medicine; Visit Provider Obstetrics & Gynecology
DX: N92.0 Excessive and frequent menstruation with regular cycle (principal); Z31.69 Encounter for other general counseling and advice on procreation; E03.9 Hypothyroidism, unspecified
CPT/HCPCS: 36415; 84443

== ENCOUNTER 2024-08-16 13:30 | Outpatient (CLI) | payer BC, SELFPAY ==
--- OUTSIDE RECORDS SUMMARY | 2024-08-16 13:44 | XMS_ITS | Encounter Summary ---
Author Organization [facility] Address [address] [place] [address] Care Team Providers Care Motor And Generator Assembler Name Role Phone Rita Quiroga MD Primary Care Provider [phone] Encounter Details Date Type Department Care Team (Late Contact Info) Description 04/23/2017 Phlebotomy Only [address] [address] [employer] Engineers, Outpatient Tubal without intrauterine (Primary Dx) Social [...] Preg 33(H) <5 mIU/ml 04/23/2017 15:36 EDT [facility] Comment: Reference Range: Negative = <5 Indeterminate = 5-25 recommend repeat in 48 hours. Positive = >25 Blood specimen (specimen) BLOOD SPECIMEN / Unknown 04/23/2017 11:22 EDT 04/23/2017 12:58 EDT Jenifer Baker MD CHEMISTRY & BLOO D GAS ORDERABLES [facility] [address] [place] [address] documented in this encounter Visit Diagnoses Diagnosis Tubal without intrauterine - Primary documented in this encounter Care Teams Motor And Generator Assembler Relationship Specialty Start Date End Date Rita Quiroga MD [address] [place] [phone] PCP - General 04/13/17 documented as of this encounter
--- OUTSIDE RECORDS SUMMARY | 2024-08-16 13:44 | XMS_ITS | Encounter Summary ---
Author Organization [facility] Address [address] [place] [address] Care Team Providers Care Carbon Capture Power Plant Engineer Name Role Phone Rita Quiroga MD Primary Care Provider [phone] Encounter Details Date Type Department Care Team (Late st Contact Info) Description 02/13/2022 Lab Requisition [facility] Pathology & Laboratory Medicine - [address] [address] John Chavez MD [address] [place] [phone] Left upper quadrant pain; Heartburn; Personal [...] explore management options, if applicable. 02/18/2022 14:03 [facility] Final Diagnosis A. DUODENUM, BIOPSY: - No significant pathologic abnormality B. DUODENUM, BULB, BIOPSY: - No significant pathologic abnormality C. STOMACH, ANTRUM, BIOPSY: - No significant pathologic abnormality D. STOMACH, BODY, BIOPSY: - No significant pathologic abnormality 02/18/2022 14:03 [facility] Attestation By the signature below, the attending physician certifies that they have 1) personally conducted a gross and/or microscopic examination of the described specimen(s), and/or personally interpreted the results of laboratory testing of the described specimen(s), and 2) personally rendered or confirmed the above diagnosis. 02/18/2022 14:03 [facility] at 1403 Clinical History History of GERD, pyrosis, LUQ pain; clinical diagnosis code: R10.12, R12, Z87.19 02/18/2022 14:03 [facility] Gross Description A. Received [...] HAJA MORA(ASCP) 02/14/2022 10:16 02/18/2022 14:03 EDT [facility] Performing Lab [facility] 02/18/2022 14:03 EDT [facility] Scanned Images 02/18/2022 14:03 EDT [facility] Tissue ENTIRE STOMACH / Unknown 02/13/2022 9:55 EDT 02/13/2022 23:44 EDT Tissue specimen (specimen) STRUCTURE OF SMALL INTESTINE / Unknown 02/13/2022 9:55 EDT 02/13/2022 23:44 EDT Tissue specimen (specimen) STOMACH STRUCTURE / Unknown 02/13/2022 9:55 EDT 02/13/2022 23:44 EDT Tissue specimen (specimen) STOMACH STRUCTURE / Unknown 02/13/2022 9:55 EDT 02/13/2022 23:44 EDT John Chavez MD PATHOLOGY ORD ERABLES [facility] [address] [place] [address] documented in this encounter Visit Diagnoses Diagnosis Left upper quadrant pain Abdominal pain, left upper quadrant Heartburn Personal history of other diseases of the digestive system documented in this encounter Care Teams Carbon Capture Power Plant Engineer Relationship Specialty Start Date End Date Rita Quiroga MD [address] [place] [phone] PCP - General 04/13/17 documented as of this encounter
--- OUTSIDE RECORDS SUMMARY | 2024-08-16 13:44 | XMS_ITS | Encounter Summary ---
Author Organization [facility] Address [address] [place] [address] Care Team Providers Care Cyber Crime Investigator Name Role Phone Rita Quiroga MD Primary Care Provider [phone] Reason for Visit * Reason Onset Date Comments Ectopic 04/24/2017 Encounter Details Date Type Department Care Team ([facility] Contact Info) Description 04/24/2017 Telephone [facility] OBGYN Services - [address] [address] Leni Delgado RN Ectopic Social History Tobacco [...] Encounter - Leni Delgado RN - 04/24/2017 9747 EDT Roxanne is wondering if it would [...] on filedocumented in this encounter Care Teams Cyber Crime Investigator Relationship Specialty Start Date End Date Rita Quiroga MD [address] [place] [phone] PCP - General 04/13/17 documented as of this encounter
--- OUTSIDE RECORDS SUMMARY | 2024-08-16 13:44 | XMS_ITS | Data Portability ---
Author Organization [facility] Address [address] [place] [address] Assessment No assessment recorded. Plan of Treatment Reminders Order Date Submit Date Provider Last Modified By Organization Details Last Modified Time Details Appointments Annual Wellness Exam 30 2024 02:20P M Not available Not available Not available Lab TSH, serum, reflex free T4 2023 024 [facility] (Registration ), [address] [place] [address] [place], [address], 03/11/2024 13:20:04 CBC w/ auto diff 2023 024 [facility] (Registration ), [address] [place] [address] [place], [address], 03/10/2024 20:24:03 HIV (1+2) Ab screen, serum 2023 024 [facility] (Registration ), [address] [place] [address] [place], [address], 03/12/2024 09:14:21 hepatitis C virus Ab, serum 2023 024 [facility] (Registration ), [address] [place] [address] [place], [address], 03/12/2024 09:14:01 TSH, serum, reflex free T4 2023 024 [facility] (Registration ), [address] [place] [address] [place], [address], 06/13/2024 16:45:10 thyroglob ulin Ab, serum [email or web address] [place] [address] Laboratory (Registration ), [address] [place] [address] [place], [address], 06/24/2024 09:59:58 thyropero xidase Ab, serum 2023 024 [facility] (Registration ), [address] [place] [address] [place], [address], 06/13/2024 16:44:45 Referral None recorded. Procedures None recorded. Surgeries None recorded. Imaging None recorded. Medication Orders albuterol sulfate HFA 90 mcg/actua tion aerosol inhaler 2022 023 [email or web address] [facility], [address] [place], [address], 03/10/2024 15:07:17 prednison e 20 mg tablet 2022 023 [email or web address] [facility], [address] [place], [address], 02/19/2024 09:20:57 benzonata te 100 mg capsule 2022 023 [email or web address] [facility], [address] [place] [address], [address], 02/19/2024 09:29:24 metoprolo l tartrate 25 mg tablet 2023 024 [facility], [address] [place] [address], [address], [address], 03/10/2024 16:53:[address] 10 mg tablet 2023 024 [facility], [address] [place] [address], [facility] [address], [address], 03/10/2024 16:53:17 escitalop jose m 10 mg tablet 2023 [facility], [address] [facility], [facility], [place], [address], 03/10/2024 16:53:13 alprazola m 0.25 mg tablet 2023 024 [facility], [address] [facility], [facility], [place], [address], 03/10/2024 16:53:18 Patient TargetsNo targets recorded. Patient Instructions Encounter Date Encounter Id Patient Instructions Last Modified By Organization Details Last Modified Time 11/14/2023 [id number] Start ALBUTEROL 2 puffs every 4-6 hours for cough. Can use BENZONOTATE caps as needed up to 3 times a day. If not better in a few days,start the prednisone 20 mg tablets, 2 for 5 days, then 1 for 5 days. Can try the metoprolol either daily or as needed. [email or web address] Not available 11/14/2023 15:57:59 02/19/2024 [id number] General measures we can take to minimize [...] prolonged asthma exacerbations caused by respiratory illness. 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 Per Diem Referral for Irritable bowel syndrome loose stool daily, often crampy, IBS episodes are more frequent, Referring Physician: Rita Quiroga, Family Medicine, Encounter Date: 03/26/2024 Results Created Date Observation Date Name Description Value Unit Range Abnormal Flag Note LastModifiedBy Organization Detail LastModifiedTime 03/10/20 24 03/10/2024 COMPL ETE BLOOD COUNT W/DIF F WBC 7.23 10_3/ uL 4.4-10 .8 normal Not Available [address] [place], [address] 03/10/2024 20:24:03 03/10/20 24 03/10/2024 COMPL ETE BLOOD COUNT W/DIF F RBC 4.33 10_6/ uL 3.93-5 .22 normal Not Available [address] [place], [address] 03/10/2024 20:24:03 03/10/20 24 03/10/2024 COMPL ETE BLOOD COUNT W/DIF F HGB 12.7 g/dL 11.2-1 5.7 normal Not Available [address] [place], [address] 03/10/2024 20:24:03 03/10/20 24 03/10/2024 COMPL ETE BLOOD COUNT W/DIF F HCT 38.9 % 36.0-4 6.0 normal Not Available [address] [place], [address] 03/10/2024 20:24:03 03/10/20 24 03/10/2024 COMPL ETE BLOOD COUNT W/DIF F MCV 90 fL 80-95 normal Not Available [address] [place], [address] 03/10/2024 20:24:03 03/10/20 24 03/10/2024 COMPL ETE BLOOD COUNT W/DIF F MCH 29.3 pg 27.0-3 3.0 normal Not Available [address] [place], [address] 03/10/2024 20:24:03 03/10/20 24 03/10/2024 COMPL ETE BLOOD COUNT W/DIF F MCHC 32.6 % 32.0-3 6.0 normal Not Available [address] [place], [address] 03/10/2024 20:24:03 03/10/20 24 03/10/2024 COMPL ETE BLOOD COUNT W/DIF F RDW 12.8 % 11.7-1 4.6 normal Not Available [address] [place], [address] 03/10/2024 20:24:03 03/10/20 24 03/10/2024 COMPL ETE BLOOD COUNT W/DIF F platelet count 293 10_3/ uL 130-40 0 normal Not Available [address] [place], [address] 03/10/2024 20:24:03 03/10/20 24 03/10/2024 COMPL ETE BLOOD COUNT W/DIF F MPV 10.7 fL 8.0-11 .0 normal Not Available [address] [place], [address] 03/10/2024 20:24:03 03/10/20 24 03/10/2024 COMPL ETE BLOOD COUNT W/DIF F neutrophils % 60.3 Not Available [address] [place], [address] 03/10/2024 20:24:03 03/10/20 24 03/10/2024 COMPL ETE BLOOD COUNT W/DIF F lymphocytes % 27.0 Not Available [address] [facility] [place], [address] 03/10/2024 20:24:03 03/10/20 24 03/10/2024 COMPL ETE BLOOD COUNT W/DIF F monocytes % 7.9 Not Available [address] [place], [address] 03/10/2024 20:24:03 03/10/20 24 03/10/2024 COMPL ETE BLOOD COUNT W/DIF F eosinophils % 3.9 Not Available [address] [place], [address] 03/10/2024 20:24:03 03/10/20 24 03/10/2024 COMPL ETE BLOOD COUNT W/DIF F basophils % 0.6 Not Available [address] [place], [address] 03/10/2024 20:24:03 03/10/20 24 03/10/2024 COMPL ETE BLOOD COUNT W/DIF F immature grans % 0.3 Not Available [facility] [address] [place], [address] 03/10/2024 20:24:03 03/10/20 24 03/10/2024 COMPL ETE BLOOD COUNT W/DIF F nucleated RBC 0.0 % 0.0-0. 3 normal Not Available [address] [place], [address] 03/10/2024 20:24:03 03/10/20 24 03/10/2024 COMPL ETE BLOOD COUNT W/DIF F absolute neutrophil count 4.37 10_3/ uL 1.2-6. 7 normal Not Available [address] [place], [address] 03/10/2024 20:24:03 03/10/20 24 03/10/2024 COMPL ETE BLOOD COUNT W/DIF F absolute lymphocyte count 1.95 10_3/ uL 1.2-3. 4 normal Not Available [address] [place], [address] 03/10/2024 20:24:03 03/10/20 24 03/10/2024 COMPL ETE BLOOD COUNT W/DIF F absolute monocyte count 0.57 10_3/ uL 0.1-0. 8 normal Not Available [address] [place], [address] 03/10/2024 20:24:03 03/10/20 24 03/10/2024 COMPL ETE BLOOD COUNT W/DIF F absolute eosinophil count 0.28 10_3/ uL 0.0-0. 7 normal Not Available [address] [place], [address] 03/10/2024 20:24:03 03/10/20 24 03/10/2024 COMPL ETE BLOOD COUNT W/DIF F absolute basophil count 0.04 10_3/ uL 0.0-0. 2 normal Not Available [address] [place], [address] 03/10/2024 20:24:03 03/10/20 24 03/10/2024 TSH (W/RE F FT4) TSH (w/ref FT4) 6.45 uIU/m L 0.36-3 .74 high Not Available [address], [address] 03/10/2024 20:43:00 03/10/20 24 03/10/2024 TSH (W/RE F FT4) TSH (w/ref FT4) 6.45 uIU/m L 0.36-3 .74 high Not Available [facility] (Registration ) [address] [place] [address] [place], [address], 03/10/2024 21:08:02 03/10/20 24 03/10/2024 FREE T4 free T4 0.89 NG/dL 0.76-1 .46 normal Not Available [address] [place], [address] 03/10/2024 21:08:03 03/10/20 24 03/11/2024 HIV-1 /2 AG AB SCREE N HIV-1/2 Ag Ab screen Negati ve negati ve If acute HIV-1 infec tion is suspe cted in a high risk patie nt, submi t plasm a speci men for HIV-1 RNA quant itati on test. Fourt h Gener ation assay perfo rmed on the OrderWithMea ur XPT. Test perfo rmed or refer red by [facility] [address] [place] [address] Not Available [facility] (Registration ) [address] [place] [address] [place], [address], 03/12/2024 09:00:24 03/10/20 24 03/11/2024 HEPAT ITIS C AB W RFLX HCV PCR hepatitis C Ab W rflx HCV PCR Negati ve negati ve Test perfo rmed or refer red by [facility] [address] [place] [address] Not Available [facility] (Registration ) [address] [place] [address] [place], [address], 03/12/2024 09:00:25 03/29/20 24 03/29/2024 VAGIN AL PATHO GEN SCREE N vaginal pathogen screen Vagin al Patho gen Scree n ROSALIND DA NEGAT TANVIR GARDN ERELL A NEGAT TANVIR TRICH OMONA S NEGAT TANVIR Not Available [address] [place], [address] 03/29/2024 21:05:53 06/10/20 24 06/10/2024 TSH (W/RE F FT4) TSH (w/ref FT4) 4.50 uIU/m L 0.36-3 .74 high Not Available [facility] (Registration ) [address] [place] [address] [place], [address], 06/10/2024 15:49:41 06/10/20 24 06/10/2024 TSH (W/RE F FT4) TSH (w/ref FT4) 4.50 uIU/m L 0.36-3 .74 high Not Available [address] [place], [address] 06/10/2024 16:12:29 06/10/20 24 06/10/2024 FREE T4 free T4 0.94 NG/dL 0.76-1 .46 normal Not Available [address] [place], [address] 06/10/2024 16:12:30 06/10/20 24 06/11/2024 THYRO ID ANTIB ODIES thyroglobuli n antibody 137 U/mL <=60 abnormal Not Available [facility] (Registration ) [address] [place] [address] [place], [address], 06/11/2024 16:44:29 06/10/20 24 06/11/2024 THYRO ID ANTIB ODIES thyroperoxid ase antibody >1300 U/mL <=60 abnormal Test perfo rmed or refer red by [facility] [address] [place] [address] Not Available [facility] (Registration ) [address] [place] [address] [place], [address], 06/11/2024 16:44:29 07/21/20 24 07/21/2024 TSH (W/RE F FT4) TSH (w/ref FT4) 3.55 uIU/m L 0.36-3 .74 normal Not Available [address] [place], [address] 07/21/2024 13:04:37 11/04/20 23 11/04/2023 kellie r monit or Holter Monito r PATIEN T NAME: Ekta [address]a V UNIT #: [id number] ORDERI NG PROVID ER: Rita Quiroga M.D. ACCOUN T #: [id number] PRIMAR Y CARE PROVID ER: [...] - E-Sign Date: E-Sign Time: [email or web address], [address] 11/04/2023 12:13:05 08/16/20 24 12/20/2021 imagi ng/di agnos tic resul t No observ ation record ed. [email or web address] Not Available 08/16 03:23:56 08/16/20 24 12/28/2021 imagi ng/di agnos tic resul t No observ ation record ed. [email or web address] Not Available 08/16 03:23:58 08/16/20 24 11/04/2023 imagi ng/di agnos tic resul t No observ ation record ed. [email or web address] Not Available 08/16 03:24:41 08/16/20 24 02/11/2023 imagi ng/di agnos tic resul t No observ ation record ed. [email or web address] Not Available 08/16 03:25:19 08/16/20 24 12/06/2022 imagi ng/di agnos tic resul t No observ ation record ed. [email or web address] Not Available 08/16 03:25:32 08/16/20 24 10/02/2021 imagi ng/di agnos tic resul t No observ ation record ed. [email or web address] Not Available 08/16 03:25:33 08/16/20 24 10/02/2021 imagi ng/di agnos tic resul t No observ ation record ed. [email or web address] Not Available 08/16 03:25:34 Result Notes None recorded. Problems Name Problem SNOMED Code Status Onset Date Resolution Date Notes Provider Name and Address Organization Details Recorded Time Epidermo id cyst of skin 389767090 Completed 201405/30/2015 Problem Code: L72.3; Problem Code Type: ICD-10; Not Available [facility] 3 04:48:05 Fatigue 10702419 Completed 201505/21/2016 Problem Code: R53.83; Problem Code Type: ICD-10; Not Available [facility] 3 04:48:05 Disorder of skin and/or subcutan eous tissue 72846819 Completed 201508/29/2016 07/05/20 16 - Comments only - Rita Quiroga MD - pper her request, she is referred to dermatshelton patricio. Problem Code: L98.9; Problem Code Type: ICD-10; Not Available [facility] 3 04:48:05 Traumati c or non-trau matic injury 558678462 Completed 201507/26/2016 07/05/20 16 - Comments only - Rita Quiroga MD - Of her foot, no evidence of fracture , simply monitori ng for now. Problem Code: T14.8; Problem Code Type: ICD-10; Not Available [facility] 3 04:48:05 Localize d enlarged lymph nodes 245091775 Completed 201507/26/2016 07/05/20 16 - Comments only - Rita Quiroga MD - This is not diffuse, has been only present for a few days, and is tender, most likely a reactive lymphade nopathy. Return to clinic if she develops diffuse lymphade nopathy Problem Code: R59.0; Problem Code Type: ICD-10; Not Available [facility] 3 04:48:05 Acute upper respirat ory infectio n 71944813 Completed 201611/03/2017 10/20/20 17 - Comments only - Rita Quiroga MD - symptoma tic treatmen t with tylenol or NSAIDs, discusse d natural history of viral URI, sytmpoms up to 10-14 days. Problem Code: J06.9; Problem Code Type: ICD-10; Not Available [facility] 3 04:48:06 Adult health examinat ion Active 2016 RITA QUIROGA MD [facility] [address], [place], [address] , [place] - [facility]. 4 22:19:38 Nonulcer dyspepsi a 4149808 Active 2017 PHILIP dahl [place] - [facility]. 4 10:25:18 Allergic rhinitis 08265453 Completed 201708/27/2023 03/07/20 23 - Comments only - Rita Quiroga MD - Better with singulai r, and her cough is much better as well. Does continue to lormanohar sullivan as well. Problem Code: J30.9; Problem Code Type: ICD-10; Not Available [facility] 3 04:48:06 Chronic tension- type headache 758388179 Active 2018 RITA QUIROGA MD [address], [place], [address] , [place] - [facility] 3 15:42:23 Idiopath ic osteoart hritis 947780665 Active 2018 ha QUIROGA MD [address], [place], [address] , [facility] - [facility] 4 22:20:00 Acute upper respirat ory infectio n 20650617 Completed 201802/08/2019 01/25/20 19 - Comments only - Rita Quiroga MD - No evidence currentl y of bacteria l superinf ection, somatic treatmen t. Written informat ion for trying to avoid sinusiti s is written and given. Problem Code: J06.9; Problem Code Type: ICD-10; Not Available [facility] 3 04:48:06 Acute upper respirat ory infectio n 87130664 Completed 201806/16/2019 Problem Code: J06.9; Problem Code Type: ICD-10; Not Available [facility] 3 04:48:07 Fatigue 06387156 Completed 201806/16/2019 06/02/20 19 - Comments only - Rita Quiroga MD - Will check CBC. She has been anemic in the past. Problem Code: R53.83; Problem Code Type: ICD-10; Not Available [facility] 3 04:48:07 Anemia 887079538 Completed 201806/16/2019 Problem Code: D64.9; Problem Code Type: ICD-10; Not Available [facility] 3 04:48:07 Non-supp urative otitis media 226820041 Completed 201806/16/2019 06/02/20 19 - Comments only - Rita Quiroga MD - If symptoms worsen, I gave her a written prescrip tion for amoxicil aida 500 3 times daily to fill. Problem Code: H65.92; Problem Code Type: ICD-10; Not Available [facility] 3 04:48:07 Tinnitus of left ear 00145091028 06 Active 2018 ENT/hear ing evaluati on normal 2019 RITA QUIROGA MD [address], [place], [address] , [place] - [facility], [facility]. 4 22:18:27 Neck pain 57869798 Completed 201811/17/2019 11/03/20 19 - Comments only - Rita Quiroga MD - Referral to physical therapy Problem Code: M54.2; Problem Code Type: ICD-10; Not Available [facility] 3 04:48:07 Cough 84943464 Completed 201812/13/2019 11/29/20 19 - Comments only - Shelia Mary Gold [employer] - Likely due to post-raeann al drip and irritati on from cold air. Lung sounds clear today with good aeration , no cough heard during patient encounte r. [facility] ed covering mouth/no se while running to avoid cold air and allergy symptom mgmt. Advised of red flag sx requirin g emergenc y care (difficu lty breathin g); [facility] ed f/u if cough or tightnes s in chest while running persists Problem Code: R05; Problem Code Type: ICD-10; Not Available [facility] 3 04:48:08 Asteatos is cutis 06984992 Completed 201812/13/2019 11/29/20 19 - Comments only - Shelia Mary Gold [employer] - Due to history of eczema as a child and current presenta tion, likely eczema. [facility] ed use of emollien t cream and protecti ng from cold air. Problem Code: L85.3; Problem Code Type: ICD-10; Not Available [facility] 3 04:48:08 Mild intermit tent asthma 589331859 Active 2019 LOUIE Storey - [facility], [facility]. 4 10:25:14 Contrace ption care manageme nt Active 2019 PHILIP dahl [facility]. 4 10:22:54 Left upper quadrant pain 455646245 Completed 202009/12/2021 08/29/20 21 - Comments only - Rita Quiroga MD - With perhaps a bit of nausea. Labs were drawn today includin g liver function tests and lipase, will get an abdomina l ultrasou nd, and given possibil ity that this is some atypical reflux, will start omeprazo le 20 mg daily. She prefers to get this over-the -counter . Problem Code: R10.12; Problem Code Type: ICD-10; Not Available [facility] 3 04:48:08 Nausea 500905203 Completed 202009/12/2021 Problem Code: R11.0; Problem Code Type: ICD-10; Not Available [facility] 3 04:48:08 Palpitat ions 69502181 Active 2021 reassuri ng holter monitors 12/2021 and 10/2023- PAC and PVCs metoprol ol 10/2023 RITA QUIROGA MD [facility] [address], [place], [address] , [facility] 4 22:21:38 Irritabl e bowel syndrome 15589224 Active 2022 PHILIP dahl [facility] 4 10:25:02 Acute vaginiti s 32203800 Completed 202206/30/2023 06/16/20 23 - Comments only - Rita Quiroga MD - vaginal screen obtained today. Problem Code: N76.0; Problem Code Type: ICD-10; Not Available [facility] 3 04:48:09 Anxiety disorder 075312484 Active 2022 PHILIP dahl [facility] 4 10:25:50 Pelvic and perineal pain 809346851 Completed 202003/07/2023 Problem Code: R10.2; Problem Code Type: ICD-10; Not Available [facility] 3 04:48:10 Gastroes ophageal reflux disease without esophagi tis 949306902 Completed 201708/27/2023 06/02/20 19 - Comments only - Rita Quiroga MD - Continue with martha sullivan. 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 72550620439 76674 Completed 201803/15/2020 Problem Code: H69.83; Problem Code Type: ICD-10; Not Available [facility] 3 04:48:10 Pain of left wrist 40703841171 9102 Completed 202003/07/2023 Problem Code: M25.532; Problem Code Type: ICD-10; Not Available [facility] 3 04:48:10 Pain of right shoulder joint 08126708553 661559 Completed 201709/13/2020 Problem Code: M25.511; Problem Code Type: ICD-10; Not Available [facility] 3 04:48:11 Vaginal bleeding 990905308 Completed 201704/30/2018 Not Available [facility] 3 04:48:11 Family history of hemochro matosis 313906202 Completed 201508/27/2023 RITA QUIROGA MD [facility] [address], [place], [address] , [facility]. 4 22:16:04 Health conditio n feared but not present 08735516676 9109 Completed 202206/16/2023 Problem Code: Z71.1; Problem Code Type: ICD-10; Not Available [facility] 3 04:48:11 Acute upper respirat ory infectio n 49841562 Completed 202103/07/2023 Problem Code: J06.9; Problem Code Type: ICD-10; Not Available [facility] 3 04:48:11 Uncompli cated mild persiste nt asthma 360056781 Completed 201908/27/2023 03/15/20 20 - Comments only - Rita Quiroga MD - Continue wtih the leif fisher Will try to control her nose/all ergies as much as possible with neti pot and flonase daily. Referral to Dr. Yesenia méndez for allergy testing. Use albutero l prior to exercise . If symptoms persist, follow up and will consider adding inhaled steroid with or without LABA. Problem Code: J45.30; Problem Code Type: ICD-10; Not Available [facility] 3 04:48:12 History of Lyme disease 192457151 Active 2023 PHILIP dahl, [facility] 4 10:24:38 Rhinitis 22504413 Active 2017 allergic MD [address], [facility] [address] , [facility] 4 22:17:08 Tension- type headache 797003805 Active 2018 Stormy dahl, [facility] 4 14:03:32 Family history of hemochro matosis 037420643 Active [address], [facility] [address] , [facility] 4 22:16:04 Past pregnanc y history of ectopic pregnanc y 699009648 Active 2016 [place], treated with medicati ons. MD [address], [facility] [address] , [facility] 4 22:16:57 Recurren t major depressi on 88077871 Active [address], [facility] [address] , [place] [facility] 22:19:29 Subclini max hypothyr oidism 12333373 Active 2022 RITA QUIROGA MD [address], [place], [address] , [facility] 22:28:28 Problem Notes None recorded. Procedures Surgical History None recorded. Imaging Results Imaging Date Name Status LastModified by Organiz ation Details LastModified Time 11/04/2023 holter monitor completed [email or web address] [facility] [address], [place], [address] 11/04/2023 12:13:05 12/20/2021 imaging/diag nostic result completed Information not available 08/16/2024 03:23:56 12/28/2021 imaging/diag nostic result completed Information not available 08/16/2024 03:23:58 11/04/2023 imaging/diag nostic result completed Information not available 08/16/2024 03:24:41 02/11/2023 imaging/diag nostic result completed Information not available 08/16/2024 03:25:19 12/06/2022 imaging/diag nostic result completed Information not available 08/16/2024 03:25:32 10/02/2021 imaging/diag nostic result completed Information not available 08/16/2024 03:25:33 10/02/2021 imaging/diag nostic result completed Information not available 08/16/2024 03:25:34 Procedure Notes None recorded. Medical Equipment None Reported. Medications Name Sig Start Date Stop Date Status Note LastModified by Organization Details LastModified Time Prescript ion - Renewal active [place] ast 10 mg tablet Not Available Not Available Not Available amoxicill in 500 mg capsule Take 1 [...] Available Not Avai lable [facility] spacer USE DIRECTED 03/10 completed Not Available Not Available Not Available Vitals Date Recorded Body height Body mass index (BMI) Body weight Body temperature Heart rate Respiratory rate Systolic blood pressure Diastolic blood pressure Provider Name and Address Organization Details Last Updated DateTime 3 160.02 cm 23.9 kg/m2 24596.9 7 g 98.1 [degF] 64 /min 16 /min 124 mm[Hg] 80 mm[Hg] NICOLETTE HELTON LPN [facility] 3 15:36:39 Date Recorded Body height Body mass index (BMI) Body weight Body temperature Oxygen saturation Oxygen saturation in Arterial blood by Pulse oximetry Heart rate Systolic blood pressure Diastolic blood pressure Provider Name and Address Organization Details Last Updated DateTime 4 160.02 cm 24.2 kg/m2 91800 g 98.1 [degF] 95 % 95 % 80 /min 114 mm[Hg] 58 mm[Hg] JOSEFINA JIMENEZ MA [facility] 4 09:29:02 Date Recorded Body height Body mass index (BMI) Body weight Body temperature Respiratory rate Heart rate Systolic blood pressure Diastolic blood pressure Provider Name and Address Organization Details Last Updated DateTime 4 160.02 cm 24.4 kg/m2 02975.7 5 g 98.2 [degF] 14 /min 76 /min 116 mm[Hg] 84 mm[Hg] NICOLETTE HELTON LPN [facility] 15:09:12 Social History Question Answer Notes LastModified by Organization Details LastModified Time Tobacco Smoking Status Never Smoker occassionally in the past NICOLETTE HELTON LPN null, [facility] 03/10/2024 15:12:04 Would You Say That, In [...] Family history of Depression Notes:*Problem: Mother: Des e age 59, depression tx, Father: Alive age [...] MMR 07/28/1990 completed Not Available [facility] 05:27:43 MMR 09/27/1998 completed Not Available [facility] 05:27:44 DTaP, unspecified formulation 05/13/1994 completed Not Available [facility] 10/10/2023 05:27:44 DTaP, unspecified formulation 1989 completed Not Available [facility] 10/10/2023 05:27:44 DTaP, unspecified formulation 1989 completed Not Available [facility] 10/10/2023 05:27:44 DTaP, unspecified formulation 10/02/1990 completed Not Available [facility] 10/10/2023 05:27:44 DTaP, unspecified formulation 1989 completed Not Available [facility] 10/10/2023 05:27:44 meningococcal ACWY, unspecified formulation 07/02/2007 completed Not Available [facility] 10/10/2023 05:27:44 Tdap 02/08/2011 completed Not Available [facility] 05:27:44 Tdap 08/29/2021 completed Not Available [facility] 05:27:45 HPV, unspecified formulation 04/28/2008 completed Not Available [facility] 10/10/2023 05:27:45 HPV, unspecified formulation 07/02/2007 completed Not Available [facility] 10/10/2023 05:27:45 HPV, unspecified formulation 10/20/2007 completed Not Available [facility] 10/10/2023 05:27:45 Td(adult) unspecified formulation 09/24/2004 completed Not Available [facility] 10/10/2023 05:27:45 Influenza, split virus, [...] (COVID-19) vaccine, UNSPECIFIED 09/24/2021 completed Not Available [facility] 10/10/2023 05:27:46 Hep B, unspecified formulation 07/04/2000 completed Not Available [facility] 10/10/2023 05:27:46 Hep B, unspecified formulation 07/27/1997 completed Not Available [facility] 10/10/2023 05:27:46 Hep B, unspecified formulation 10/08/1999 completed Not Available [facility] 10/10/2023 05:27:46 Hep A, unspecified formulation 12/03/2006 completed Not Available [facility] 10/10/2023 05:27:46 Hep A, unspecified formulation 05/02/2005 completed Not Available [facility] 10/10/2023 05:27:46 influenza, unspecified formulation 09/10/2018 completed Not Available [facility] 10/10/2023 05:27:46 influenza, unspecified formulation 09/14/2019 completed Not Available [facility] 10/10/2023 05:27:47 polio, unspecified formulation 05/03/1994 completed Not Available [facility] 10/10/2023 05:27:47 polio, unspecified formulation 1989 completed Not Available [facility] 10/10/2023 05:27:47 polio, unspecified formulation 1989 completed Not Available [facility] 10/10/2023 05:27:47 COVID-19, mRNA, LNP-S, PF, sb-sucrose, 30 mcg/0.3 mL 09/24/2023 completed Not Available [facility] 12/12/2023 05:33:14 Past Encounters Encounter ID Performer Location Encounter Start Date Encounter Closed Date Diagnosis/Indication Diagnosis SNOMED-CT Code Diagnosis ICD10 Code [id number] RITA QUIROGA MD [facility] [place] [address] 11/14/2023 15:25:50 11/14/2023 16:01:43 Palpitations 04084665 R00.2 Bronchospasm 4454842 J98 .01 [id number] HAJA GARZA [facility] [place] [address] 02/19/2024 09:17:54 02/19/2024 10:01:12 Anxiety 30618218 F41.9 Mild inter mittent asthma 824904920 J45.20 [id number] RITA QUIROGA MD [facility] [address] [place] [address] 03/10/2024 14:51:45 03/10/2024 15:57:19 Adult health examination 346775383 Z00.00 Subclinica l hypothyroidism 25634922 E02 Night sweats 00257086 R6 1 Anxiety 17309590 F41.9 Rhinitis 24895758 J00 Palpitations 18955589 R0 0.2 [id number] Lynne Drake RN [facility] [address] [place] [address] 06/10/2024 10:23:38 06/10/2024 10:36:34 Hypothyroidism 87628532 E03.9 Health Concerns Section Related Observation LastModified by Organization Detai ls LastModified Time None Recorded Concern Status LastModified by Organization Details LastModified Time None Recorded Advance Directives Directive None Recorded Payers Encounter Date Sequence Insurance Name Policy Number Policy Cruz Covered Member ID Cruz Member ID Guarantor Name 11/14/2023 1 [place] Roxanne V [place] [id number] Roxanne V [place] 02/19/2024 1 [place] Roxanne V [place] [id number] Roxanne V [place] 03/10/2024 1 [place] Roxanne V [place] [id number] Roxanne V [place] 06/10/2024 1 [place] Roxanne V [place] [id number] Roxanne V [place] Notes Date Note Type Note Provider Name and Address Organization Details Recorded Time 11/14/2023 text/html HPI Notes: She underwent 48 hour engine monitor 11/04/23, which was totally normal. She had [...] palpitations. RITA QUIROGA MD [address], [place], [address], [facility], [facility]. 11/14/2023 16:36:02 02/19/2024 text/html HPI Notes: [...] true or not. She reported she saw language path who guided she has environmental allergies, but [...] perhaps joining a non profit. [address], [place], [address], [facility], [facility]. 02/19/2024 11:00:13 03/10/2024 text/html HPI Notes: [...] TSH. RITA QUIROGA MD [address], [place], [address], [facility]. 03/10/2024 16:48:25 OBGyn Episode No OBEpisode recorded.
--- OUTSIDE RECORDS SUMMARY | 2024-08-16 13:44 | XMS_ITS | Encounter Summary ---
Author Organization [facility] Address [address] [place] [address] Care Team Providers Care Buzzle Buffer Name Role Phone Rita Quiroga MD Primary Care Provider [phone] Encounter Details Date Type Department Care Team (Late st Contact Info) Description 06/10/2024 Lab Requisition [facility] Pathology & Laboratory Medicine - [address] [address] Outr Resulting Lab, Provider Social History Tobacco [...] Anti-Thyroglobulin 137(H) <=60 U/mL 2023 10:10 EDT [facility] Thyroperoxidase Ab >1,300(H) <=60 U/mL 2023 10:10 EDT [facility] Blood VENOUS BLOOD / Unknown 06/10/2024 10:30 EDT 06/10/2024 22:43 EDT Provider Outr Resulting Lab CHEMISTRY & BLOOD GAS ORDERABLES [facility] [address] [place] [address] documented in this encounter Visit Diagnoses Not on filedocumented in this encounter Care Teams Buzzle Buffer Relationship Specialty Start Date End Date Rita Quiroga MD [address] [place] [phone] PCP - General 04/13/17 documented as of this encounter
--- OUTSIDE RECORDS SUMMARY | 2024-08-16 13:44 | XMS_ITS | Encounter Summary ---
Author Organization [facility] Address [address] [place] [address] Care Team Providers Care Taper/Finisher Name Role Phone Rita Quiroga MD Primary Care Provider [phone] Encounter Details Date Type Department Care Team (Late Contact Info) Description 12/11/2017 Phlebotomy Only [address] [address] Heel Sorter, Outpatient Abnormal uterine bleeding (Primary Dx) Social [...] Preg <5 <5 mIU/ml 12/11/2017 12:50 EST [facility] Comment: Reference Range: Negative = <5 Indeterminate = 5-25 recommend repeat in 48 hours. Positive = >25 Blood specimen (specimen) BLOOD SPECIMEN / Unknown 12/11/2017 12:04 EST 12/11/2017 12:12 EST Jenifer Baker MD CHEMISTRY & BLOO D GAS ORDERABLES [facility] [address] [place] [address] documented in this encounter Visit Diagnoses Diagnosis Abnormal uterine bleeding- Primary Unspecified disorder of menstruation and other abnormal bleeding from female genital tract documented in this encounter Care Teams Taper/Finisher Relationship Specialty Start Date End Date Rita Quiroga MD [address] [place] [phone] PCP - General 04/13/17 documented as of this encounter
--- OUTSIDE RECORDS SUMMARY | 2024-08-16 13:44 | XMS_ITS | Encounter Summary ---
Author Organization [facility] Address [address] [place] [address] Care Team Providers Care Regional Property Manager Name Role Phone Rita Quiroga MD Primary Care Provider [phone] Encounter Details Date Type Department Care Team (Late st Contact Info) Description 04/23/2017 11:08 EDT - 04/23/2017 23:59 EDT Hospital Encounter [facility] - [address] [address] Jenifer Baker MD [address] [facility] [address] [place] [address] Discharge Disposition: Auto Discharge Social [...] on filedocumented in this encounter Care Teams Regional Property Manager Relationship Specialty Start Date End Date Rita Quiroga MD [address] [place] [phone] PCP - General 04/13/17 documented as of this encounter
--- OUTSIDE RECORDS SUMMARY | 2024-08-16 13:44 | XMS_ITS | Encounter Summary ---
Author Organization [facility] Address [address] [place] [address] Care Team Providers Care Asbestos Cloth Inspector Name Role Phone Rita Quiroga MD Primary Care Provider Reason for Visit * Reason Onset Date Comments Appointment Related 04/30/2017 Encounter Details Date Type Department Care Team (Late st Contact Info) Description 04/30/2017 Telephone [facility] Dermatology 3rd Floor [facility] [address] [place] [address] Desirae Desai MD [address] [place] [address] Appointment Related Social History Tobacco Use Types [...] on filedocumented in this encounter Care Teams Asbestos Cloth Inspector Relationship Specialty Start Date End Date Rita Quiroga MD [address] [place] [phone] PCP - General 04/13/17 documented as of this encounter
--- OUTSIDE RECORDS SUMMARY | 2024-08-16 13:44 | XMS_ITS | Encounter Summary ---
Author Organization [facility] Address [address] [place] [address] Care Team Providers Care Stapling Machine Operator Name Role Phone Rita Quiroga MD Primary Care Provider [phone] Reason for Visit * Reason Onset Date Comments Contraception 11/21/2017 Encounter Details Date Type Department Care Team (Late Contact Info) Description 11/21/2017 Telephone [facility] OBGYN Services - [address] [address] Christy Stevens RN Contraception Social History Tobacco [...] Stevens RN - 11/21/2017 1301 EST Roxanne [facility] rRTCB has questions about Nexplanon. LV for Roxanne, advised returning her call. documented in this encounter Plan of Treatment Not on file documented as of this encounter Visit Diagnoses Not on filedocumented in this encounter Care Teams Stapling Machine Operator Relationship Specialty Start Date End Date Rita Quiroga MD [address] [place] [phone] PCP - General 04/13/17 documented as of this encounter
--- OUTSIDE RECORDS SUMMARY | 2024-08-16 13:44 | XMS_ITS | Encounter Summary ---
Author Organization [facility] Address [address] [place] [address] Care Team Providers Care Engraving Operator Name Role Phone Rita Quiroga MD Primary Care Provider [phone] Reason for Visit * Reason Onset Date Comments Vaginal Bleeding 08/07/2017 Encounter Details Date Type Department Care Team (Late st Contact Info) Description 08/07/2017 Telephone [facility] - [address] [address] Lucía Busch RN Vaginal Bleeding Social History [...] appt. Will ask Dr. Herzog. Pt uses [employer] [facility]. OK to leave a detailed message on pt's phone if needed. documented in this encounter Plan of Treatment Not on file documented as of this encounter Visit Diagnoses Not on filedocumented in this encounter Care Teams Engraving Operator Relationship Specialty Start Date End Date Rita Quiroga MD [address] [place] [phone] PCP - General 04/13/17 documented as of this encounter
--- OUTSIDE RECORDS SUMMARY | 2024-08-16 13:44 | XMS_ITS | Encounter Summary ---
Author Organization [facility] Address [address] [place] [address] Care Team Providers Care Parcel Post Order Clerk Name Role Phone Rita Quiroga MD Primary Care Provider [phone] Reason for Visit * Reason Comments Contraception Nexplanon insert Encounter Details Date Type Department Care Team ([facility] Contact Info) Description 05/12/2017 9:00 EDT Office Visit [facility] OBGYN Services - [address] [address] Jenifer Baker MD [address] [place] [address], [facility] [address] [place] [address] Nexplanon insertion (Primary Dx); Routine [...] physician and patient. Dressing applied. Lot # [id number] Exp date 03/2018 Patient sent to the [...] EDT) Syphilis Serology Negative 05/13/2017 13:24 EDT [facility] Comment:Reference Range: Neg ative Blood specimen (specimen) BLOOD SPECIMEN / Unknown 05/12/2017 9:37 EDT 05/12/2017 9:55 EDT Jenifer Baker MD IMMUNOLOGY AND S EROLOGY ORDERABLES Performing Organization Address [facility] de Phone Number [facility] [address] [place] [address] * HIV 1/2 ANTIBODY (05/12/2017 9:37 EDT) HIV 1/2 Antibody Negative Negative 05/12/20 17 12:31 EDT [facility] Comment: New methodology in use 03/18/17. Fourth generation assay performed on the Siemens Studentboxaur. If acute HIV-1 infection is suspected in a high risk patient, submit plasma specimen for HIV-1 RNA quantification test. Blood specimen (specimen) BLOOD SPECIMEN / Unknown 05/12/2017 9:37 EDT 05/12/2017 9:55 EDT Jenifer Baker MD IMMUNOLOGY AND S EROLOGY ORDERABLES Performing Organization Address [facility] de Phone Number [facility] [address] [place] [phone] * CHLAMYDIA/N. GONORRHOEAE AMPLIFIED RNA, URINE (05/12/2017 9:26 EDT) Chlamydia Result Negative 05/13/20 17 14:32 EDT [facility] Comment: This test was developed and its performance characteristics determined by [facility]. It has not been cleared or [...] samples. GC Result Negative 05/13/2017 14:32 EDT [facility] Comment: This test was developed and its performance characteristics determined by [facility]. It has not been cleared or [...] - G ENERAL ORDERABLES Performing Organization Address City/[facility]/ZIP Co de Phone Number [facility] [address] [place] [phone] * POCT TEST, CLINITEK (05/12/2017 9:12 EDT) UPT Result Neg Neg 05/12/2017 9:23 EDT [facility] office technician ID [id number] 05/12/2017 9:23 EDT [facility] Comment:Test performed at [facility] Urine specimen (specimen) URINE / Unknown 05/12/2017 9:12 EDT 05/12/2017 9:23 EDT Jenifer Baker MD POINT OF CARE TE ST ORDERABLES Performing Organization Address [facility] Co de Phone Number [facility] [address] [place] [address] documented in this encounter Visit Diagnoses Diagnosis [...] mg documented in this encounter Care Teams Parcel Post Order Clerk Relationship Specialty Start Date End Date Rita Quiroga MD [address] [place] [phone] PCP - General 04/13/17 documented as of this encounter
--- OUTSIDE RECORDS SUMMARY | 2024-08-16 13:44 | XMS_ITS | Encounter Summary ---
Author Organization [facility] Address [address] [place] [address] Care Team Providers Care Document Analyst Name Role Phone Rita Quiroga MD Primary Care Provider [phone] Reason for Visit * Reason Onset Date Comments Ectopic 04/21/2017 Encounter Details Date Type Department Care Team ([facility] Contact Info) Description 04/21/2017 Telephone [facility] OBGYN Services - [address] [address] Leni Delgado RN Ectopic Social History Tobacco [...] Preg 33(H) <5 mIU/ml 04/23/2017 15:36 EDT [facility] Comment: Reference Range: Negative = <5 Indeterminate = 5-25 recommend repeat in 48 hours. Positive = >25 Blood specimen (specimen) BLOOD SPECIMEN / Unknown 04/23/2017 11:22 EDT 04/23/2017 12:58 EDT Jenifer Baker MD CHEMISTRY & BLOO D GAS ORDERABLES [facility] [address] [place] [address] documented in this encounter Visit Diagnoses Diagnosis Tubal without intrauterine - Primary documented in this encounter Care Teams Document Analyst Relationship Specialty Start Date End Date Rita Quiroga MD [address] [place] [phone] PCP - General 04/13/17 documented as of this encounter
--- OUTSIDE RECORDS SUMMARY | 2024-08-16 13:44 | XMS_ITS | Encounter Summary ---
Author Organization [facility] Address [address] [place] [address] Care Team Providers Care Culturist Name Role Phone Rita Quiroga MD Primary Care Provider [phone] Reason for Visit * Reason Onset Date Comments Appointment Related 05/08/2017 Encounter Details Date Type Department Care Team ([facility] Contact Info) Description 05/08/2017 Telephone [facility] OBGYN Services - [address] [address] Leni Delgado RN Appointment Related Social History [...] pm. Message left with Roxanne to call GREEN CHAIN WORKER back with her selection. documented in this encounter Plan of Treatment Not on file documented as of this encounter Visit Diagnoses Not on filedocumented in this encounter Care Teams Culturist Relationship Specialty Start Date End Date Rita Quiroga MD [address] [place] [phone] PCP - General 04/13/17 documented as of this encounter
--- OUTSIDE RECORDS SUMMARY | 2024-08-16 13:44 | XMS_ITS | Encounter Summary ---
Author Organization [facility] Address [address] [place] [address] Care Team Providers Care Taxation Agent Name Role Phone Rita Quiroga MD Primary Care Provider [phone] Reason for Visit * Reason Onset Date Comments Ectopic 04/25/2017 Encounter Details Date Type Department Care Team ([facility] Contact Info) Description 04/25/2017 Telephone [facility] OBGYN Services - [address] [address] Dania Ashley RN Ectopic Social History Tobacco [...] on filedocumented in this encounter Care Teams Taxation Agent Relationship Specialty Start Date End Date Rita Quiroga MD [address] [place] [phone] PCP - General 04/13/17 documented as of this encounter
--- OUTSIDE RECORDS SUMMARY | 2024-08-16 13:44 | XMS_ITS | Encounter Summary ---
Author Organization [facility] Address [address] [place] [address] Care Team Providers Care Associate Dean Of Women Name Role Phone Rita Quiroga MD Primary Care Provider [phone] Encounter Details Date Type Department Care Team (Late st Contact Info) Description 03/11/2024 Lab Requisition [facility] Pathology & Laboratory Medicine - [address] [address] Outr Resulting Lab, Provider Social History Tobacco [...] 4th Generation Negative Negative 03/11/2024 19:04 EDT [facility] Comment:If acute HIV-1 infec tion is suspected in a high risk patient, submit plasma specimen for HIV-1 RNA quantitation test. Blood VENOUS BLOOD / Unknown 03/10/2024 16:00 EDT 03/11/2024 17:31 EDT Narrative [facility] - 03/11/2024 19:04 EDT Fourth Generation assay performed on the Siemens Odyssey Theraaur XPT. Provider Outr Resulting Lab IMMUNOLOGY A ND SEROLOGY ORDERABLES [facility] [address] [place] [address] documented in this encounter Visit Diagnoses Not on filedocumented in this encounter Care Teams Associate Dean Of Women Relationship Specialty Start Date End Date Rita Quiroga MD [address] [place] [phone] PCP - General 04/13/17 documented as of this encounter
--- OUTSIDE RECORDS SUMMARY | 2024-08-16 13:44 | XMS_ITS | Encounter Summary ---
Author Organization [facility] Address [address] [place] [address] Care Team Providers Care Chemical Compounder Name Role Phone Rita Quiroga MD Primary Care Provider [phone] Encounter Details Date Type Department Care Team (Late Contact Info) Description 05/12/2017 Phlebotomy Only [address] [address] Senior Electrical Estimator, Outpatient Routine screening for STI (sexually transmitted [...] EDT) Syphilis Serology Negative 05/13/2017 13:24 EDT [facility] Comment:Reference Range: Neg ative Blood specimen (specimen) BLOOD SPECIMEN / Unknown 05/12/2017 9:37 EDT 05/12/2017 9:55 EDT Jenifer Baker MD IMMUNOLOGY AND S EROLOGY ORDERABLES Performing Organization Address [facility] Co de Phone Number [facility] [address] [place] [address] * HIV 1/2 ANTIBODY (05/12/2017 9:37 EDT) HIV 1/2 Antibody Negative Negative 05/12/20 12:31 EDT [facility] Comment: New methodology in use 03/18/17. Fourth generation assay performed on the [employer] medicalaur. If acute HIV-1 infection is suspected in a high risk patient, submit plasma specimen for HIV-1 RNA quantification test. Blood specimen (specimen) BLOOD SPECIMEN / Unknown 05/12/2017 9:37 EDT 05/12/2017 9:55 EDT Jenifer Baker MD IMMUNOLOGY AND S EROLOGY ORDERABLES Performing Organization Address [facility] Co de Phone Number [facility] [address] [place] [address] documented in this encounter Visit Diagnoses Diagnosis Routine screening for STI (sexually transmitted infection)- Primary Screening examination for venereal disease documented in this encounter Care Teams Chemical Compounder Relationship Specialty Start Date End Date Rita Quiroga MD [address] [place] [phone] PCP - General 04/13/17 documented as of this encounter
--- OUTSIDE RECORDS SUMMARY | 2024-08-16 13:44 | XMS_ITS | Encounter Summary ---
Author Organization [facility] Address [address] [place] [address] Care Team Providers Care Printed Circuit Photographer Name Role Phone Rita Quiroga MD Primary Care Provider [phone] Reason for Visit * Reason Comments Advice Only control talk Encounter Details Date Type Department Care Team ([facility] Contact Info) Description 05/05/2017 14:00 EDT Office Visit [facility] OBGYN Services - [address] [phone] Jenifer Baker MD [address] [place] [address], [facility] [address] [place] [address] Tubal without intrauterine (Primary Dx); [...] 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 From [...] management documented in this encounter Care Teams Printed Circuit Photographer Relationship Specialty Start Date End Date Rita Quirgoa MD [address] [place] [phone] PCP - General 04/13/17 documented as of this encounter
--- OUTSIDE RECORDS SUMMARY | 2024-08-16 13:44 | XMS_ITS | Clinical Summary ---
Author Organization [facility] Address [address] [place] [address] Care Team Providers Care Chief Architect Name Role Phone Rita Quiroga MD Primary Care Provider [phone] Allergies No known active allergies Medications Medication [...] Department Care Team Description 06/10/2024 Lab Requisition [facility] Pathology & Laboratory Medicine - [address] [address] Outr Resulting Lab, Provider from Last 3 [...] Completed 03/10/2024 Medical Devices Implanted Type Area Grain Farmworker Device Identifier Shelf Expiration Date Model / [...] Anti-Thyroglobulin 137(H) <=60 U/mL 2023 10:10 EDT [facility] Thyroperoxidase Ab >1,300(H) <=60 U/mL 2023 10:10 EDT [facility] Blood VENOUS BLOOD / Unknown 06/10/2024 10:30 EDT 06/10/2024 22:43 EDT Provider Outr Resulting Lab CHEMISTRY & BLOOD GAS ORDERABLES Performing Organization Address City/[facility]/ZIP Co de Phone Number [facility] [address] [place] [phone] * HEPATITIS C AB W REFLEX TO HCV RNA BY PCR (03/10/2024 16:00 EDT) Hep C Antibody Negative Negative 03/11/2024 19:02 EDT [facility] Blood VENOUS BLOOD / Unknown 03/10/2024 16:00 EDT 03/11/2024 17:31 EDT Provider Outr Resulting Lab CHEMISTRY & BLOOD GAS ORDERABLES [facility] [address] [place] [address] from Last 3 Months or Most Recently Relevant to Health Maintenance Care Teams Chief Architect Relationship Specialty Start Date End Date Rita Quiroga MD [address] [place] [phone] PCP - General 04/13/17
--- OUTSIDE RECORDS SUMMARY | 2024-08-16 13:44 | XMS_ITS | Encounter Summary ---
Author Organization [facility] Address [address] [place] [address] Care Team Providers Care Ecommerce Project Manager Name Role Phone Rita Quiroga MD Primary Care Provider [phone] Reason for Visit * Reason Comments Laser Treatment spider angioma Encounter Details Date Type Department Care Team (Late st Contact Info) Description 06/11/2017 16:00 EDT Office Visit [facility] Dermatology 3rd Floor [facility] [address] [place] [address] Desirae Desai MD [address] [place] [phone] Spider angioma (Primary Dx) Social History Tobacco [...] PULSED DYE LASER OPERATIVE REPORT Laser ID# [id number] PATIENT INFORMATION: Roxanne Beltran : MRN: [id number] SURGEON: Desirae Desai MD PROMOTIONS ASSISTANT SALES MARKETING: none The risks and benefits of treatment [...] non-neoplastic documented in this encounter Care Teams Ecommerce Project Manager Relationship Specialty Start Date End Date Rita Quiroga MD [address] [place] [phone] PCP - General 04/13/17 documented as of this encounter
--- OUTSIDE RECORDS SUMMARY | 2024-08-16 13:44 | XMS_ITS | Encounter Summary ---
Author Organization [facility] Address [address] [place] [address] Care Team Providers Care Blueprint Tracer Name Role Phone Rita Quiroga MD Primary Care Provider [phone] Encounter Details Date Type Department Care Team (Late Contact Info) Description 04/20/2017 Phlebotomy Only [address] [address] Ghost Writer, Outpatient Tubal without intrauterine (Primary Dx) Social [...] Preg 63(H) <5 mIU/ml 04/20/2017 13:22 EDT [facility] Comment: Reference Range: Negative = <5 Indeterminate = 5-25 recommend repeat in 48 hours. Positive = >25 Blood specimen (specimen) BLOOD SPECIMEN / Unknown 04/20/2017 10:43 EDT 04/20/2017 12:32 EDT Jenifer Baker MD CHEMISTRY & BLOO D GAS ORDERABLES [facility] [address] [place] [address] documented in this encounter Visit Diagnoses Diagnosis Tubal without intrauterine - Primary documented in this encounter Care Teams Blueprint Tracer Relationship Specialty Start Date End Date Rita Quiroga MD [address] [place] [phone] PCP - General 04/13/17 documented as of this encounter
--- OUTSIDE RECORDS SUMMARY | 2024-08-16 13:44 | XMS_ITS | Encounter Summary ---
Author Organization [facility] Address [address] [place] [address] Care Team Providers Care English As A Second Language Teacher Name Role Phone Rita Quiroga MD Primary Care Provider [phone] Encounter Details Date Type Department Care Team (Late st Contact Info) Description 04/30/2017 9:55 EDT - 04/30/2017 23:59 EDT Hospital Encounter [facility] [address] [place] [address] Jenifer Baker MD [address] [place] [address], [facility] 4 [place] [address] Discharge Disposition: Home or Self [...] on filedocumented in this encounter Care Teams English As A Second Language Teacher Relationship Specialty Start Date End Date Rita Quiroga MD [address] [place] [phone] PCP - General 04/13/17 documented as of this encounter
--- OUTSIDE RECORDS SUMMARY | 2024-08-16 13:44 | XMS_ITS | Clinical Summary ---
Author Organization [facility] Address [facility] [place] [address] Care Team Providers Care Director Of Corporate Communications Name Role Phone Rita Quiroga MD Primary Care Provider [phone] Allergies No known active allergies Medications Medication [...] PAP Smear 2019 Covid-19 Vaccine ( - season) 2024 Influenza (Flu) vaccine (1 o f 1 - Influenza standard series) 08/01/2024 Care Teams Director Of Corporate Communications Relationship Specialty Start Date End Date Rita Quiroga MD [facility] [address] [place] [address] PCP - General Family Medicine 06/13/20
--- OUTSIDE RECORDS SUMMARY | 2024-08-16 13:44 | XMS_ITS | Encounter Summary ---
Author Organization [facility] Address [address] [place] [address] Care Team Providers Care Solar Applications Development Engineer Name Role Phone Rita Quiroga MD Primary Care Provider [phone] Reason for Visit * Reason Comments Contraception Encounter Details Date Type Department Care Team (Late Contact Info) Description 12/11/2017 15:00 EST Office Visit [facility] OBGYN Services - [address] [phone] Jenifer Baker MD [address] [place] [address], [facility] 4 [place] [address] General counseling and advice for [...] Laura Davis MD - 12/11/2017 1500 EST core shaper Note Chief Complaint: desires contraceptive counseling Subjective: [...] or tenderness Extremities: warm, well-perfused, non-tender Exam travel counselor: Dr. Baker Assessment/Plan: Roxanne Beltran is a [...] separate procedure note. Laura Davis MD PGY-[address] [facility] Obstetrics and Gynecology Pager: [phone] Attestation statement: I saw and examined the [...] 7cm. Mirena IUD was placed according to canoe inspector's instructions. Tenaculum was removed and excellent hemostasis was noted. The IUD strings were trimmed to 4cm. The speculum was then removed. Date of insertion: 12/11/2017 IUD Lot #: [id number] Nexplanon was palpated in the LUE. The [...] throughout the procedures. Laura Davis MD PGY-3 [facility] Obstetrics and Gynecology Pager: [phone] documented in this encounter Plan of Treatment [...] mouth. added in this encounter Care Teams Solar Applications Development Engineer Relationship Specialty Start Date End Date Rita Quiroga MD [address] [place] [phone] PCP - General 04/13/17 documented as of this encounter
--- OUTSIDE RECORDS SUMMARY | 2024-08-16 13:44 | XMS_ITS | Encounter Summary ---
Author Organization [facility] Address [address] [place] [address] Care Team Providers Care Labor And Employment Paralegal Name Role Phone Rita Quiroga MD Primary Care Provider Reason for Visit * Reason Onset Date Comments Other 11/19/2017 Encounter Details Date Type Department Care Team (Late Contact Info) Description 11/19/2017 Telephone [facility] OBGYN Services - [facility] [address] [place] [address] Lucía Busch RN Other Social History Tobacco [...] on filedocumented in this encounter Care Teams Labor And Employment Paralegal Relationship Specialty Start Date End Date Rita Quiroga MD [address] [place] [phone] PCP - General 04/13/17 documented as of this encounter
--- OUTSIDE RECORDS SUMMARY | 2024-08-16 13:44 | XMS_ITS | Encounter Summary ---
Author Organization [facility] Address [address] [place] [address] Care Team Providers Care Field Crops Harvest Machine Operator Name Role Phone Rita Quiroga MD Primary Care Provider [phone] Reason for Visit * Reason Onset Date Comments Ectopic 04/23/2017 Encounter Details Date Type Department Care Team ([facility] Contact Info) Description 04/23/2017 Telephone [facility] OBGYN Services - [address] [address] Leni Delgado RN Ectopic Social History Tobacco [...] Encounter - Leni Delgado, SANDRO - 04/23/2017 5553 EDT Component Latest Ref Rng & Units [...] for BCT with Dr. Baker 05/05/17. Aware CASH APPLICATION CLERK will call with her hcg next week, once available. Roxanne is agreeable to this plan and verbalized understanding. documented in this encounter Plan of Treatment Not on file documented as of this encounter Results * HCG FOR (04/30/2017 12:41 EDT) Quant Beta HCG, Preg <5 <5 mIU/ml 04/30/2017 14:14 EDT [facility] Comment: Reference Range: Negative = <5 Indeterminate = 5-25 recommend repeat in 48 hours. Positive = >25 Blood specimen (specimen) BLOOD SPECIMEN / Unknown 04/30/2017 12:41 EDT 04/30/2017 12:55 EDT Jenifer Baker MD CHEMISTRY & BLOO D GAS ORDERABLES [facility] [address] [place] [address] documented in this encounter Visit Diagnoses Diagnosis Tubal without intrauterine - Primary documented in this encounter Care Teams Field Crops Harvest Machine Operator Relationship Specialty Start Date End Date Rita Quiroga MD [address] [place] [phone] PCP - General 04/13/17 documented as of this encounter
--- OUTSIDE RECORDS SUMMARY | 2024-08-16 13:44 | XMS_ITS | Encounter Summary ---
Author Organization [facility] Address [address] [place] [address] Care Team Providers Care Tire Fabric Inspector Name Role Phone Rita Quiroga MD Primary Care Provider [phone] Encounter Details Date Type Department Care Team (Late st Contact Info) Description 06/20/2023 Lab Requisition [facility] Pathology & Laboratory Medicine - [address] [address] Outr Resulting Lab, Provider Social History Tobacco [...] Negative Negative 06/21/2023 14:50 EDT [facility] Herpes Simplex Virus Molecular Detection 2, PCR Negative Negative 06/21/2023 14:50 EDT [facility] Swab ENTIRE VAGINA / Unknown 06/20/2023 11:45 EDT 06/21/2023 11:43 EDT Provider Outr Resulting Lab MICROBIOLOGY - GENERAL ORDERABLES Performing Organization Address City/State/[facility] Co de Phone Number [facility] [address] [place] [address] documented in this encounter Visit Diagnoses Not on filedocumented in this encounter Care Teams Tire Fabric Inspector Relationship Specialty Start Date End Date Rita Quiroga MD [address] [place] [phone] PCP - General 04/13/17 documented as of this encounter
--- OUTSIDE RECORDS SUMMARY | 2024-08-16 13:44 | XMS_ITS | Encounter Summary ---
Author Organization [facility] Address [address] [place] [address] Care Team Providers Care Portfolio Accountant Name Role Phone Rita Quiroga MD Primary Care Provider [phone] Encounter Details Date Type Department Care Team (Late st Contact Info) Description 03/15/2022 Lab Requisition [facility] Pathology & Laboratory Medicine - [address] [address] Outr Resulting Lab, Provider Social History Tobacco [...] Outr Resulting Lab MICROBIOLOGY - GENERAL ORDERABLES [facility] [address] [place] [address] * COVID-19 TESTING (03/14/2022 13:20 EDT) COVID-19 rt-PCR Result Negative Negative 03/16/2022 10:37 EDT [facility] Comment: This test has [...] performed using the james SARS-CoV-2 assay ([employer] on the James 6800 System Performing Lab James 6800 [employer] Lab 03/16/2022 10:37 EDT [facility] Swab 03/14/2022 13:2 0 EDT 03/15/2022 16:23 EDT Provider Outr Resulting Lab MICROBIOLOGY - GENERAL ORDERABLES [facility] [address] [place] [address] documented in this encounter Visit Diagnoses Not on filedocumented in this encounter Care Teams Portfolio Accountant Relationship Specialty Start Date End Date Rita Quiroga MD [address] [place] [phone] PCP - General 04/13/17 documented as of this encounter
--- OUTSIDE RECORDS SUMMARY | 2024-08-16 13:44 | XMS_ITS | Encounter Summary ---
Author Organization [facility] Address [address] [place] [address] Care Team Providers Care Thumb Sewer Name Role Phone Rita Quiroga MD Primary Care Provider [phone] Reason for Visit * Reason Onset Date Comments Appointment Related 12/09/2017 Encounter Details Date Type Department Care Team (Late st Contact Info) Description 12/09/2017 Telephone [facility] OBGYN Services - [address] [address] Christy Stevens RN Appointment Related Social History [...] Preg <5 <5 mIU/ml 12/11/2017 12:50 EST [facility] Comment: Reference Range: Negative = <5 Indeterminate = 5-25 recommend repeat in 48 hours. Positive = >25 Blood specimen (specimen) BLOOD SPECIMEN / Unknown 12/11/2017 12:04 EST 12/11/2017 12:12 EST Jenifer Baker MD CHEMISTRY & BLOO D GAS ORDERABLES [facility] [address] [place] [address] documented in this encounter Visit Diagnoses Diagnosis Abnormal uterine bleeding- Primary Unspecified disorder of menstruation and other abnormal bleeding from female genital tract documented in this encounter Care Teams Thumb Sewer Relationship Specialty Start Date End Date Rita Quiroga MD [address] [place] [phone] PCP - General 04/13/17 documented as of this encounter
--- OUTSIDE RECORDS SUMMARY | 2024-08-16 13:44 | XMS_ITS | Encounter Summary ---
Author Organization [facility] Address [address] [place] [address] Care Team Providers Care Filler Shredder Helper Name Role Phone Rita Quiroga MD Primary Care Provider Reason for Visit * Reason Onset Date Comments Ectopic 04/30/2017 Encounter Details Date Type Department Care Team ([facility] Contact Info) Description 04/30/2017 Telephone [facility] OBGYN Services - [address] [address] Leni Delgado RN Ectopic Social History Tobacco [...] Encounter - Leni Delgado RN - 04/30/2017 8242 EDT Component Latest Ref Rng & Units [...] on filedocumented in this encounter Care Teams Filler Shredder Helper Relationship Specialty Start Date End Date Rita Quiroga MD [address] [place] [phone] PCP - General 04/13/17 documented as of this encounter
--- OUTSIDE RECORDS SUMMARY | 2024-08-16 13:44 | XMS_ITS | Encounter Summary ---
Author Organization [facility] Address [address] [place] [address] Care Team Providers Care Charge Operator Name Role Phone Rita Quiroga MD Primary Care Provider [phone] Reason for Visit * Reason Comments New Patient Visit [facility] Skin Lesion Nose Encounter Details Date Type Department Care Team (Late st Contact Info) Description 04/23/2017 15:40 EDT Office Visit [facility] Dermatology 5th Floor [facility] [address] [place] [address] Symone Moore MD PhD [address] [facility], Level [address] [place] [phone] Niall Garcia MD [address] [place] [phone] Spider angioma (Primary Dx) Social History [...] 15:41 * Niall Garcia MD - 04/23/2017 4570 EDT Dermatology Resident Clinic Visit Note Chief [...] the resident's/fellow's note. Symone Moore MD Dermatology [facility] documented in this encounter Plan of Treatment Not on file documented as of this encounter Visit Diagnoses Diagnosis Spider angioma- Primary Nevus, non-neoplastic documented in this encounter Care Teams Charge Operator Relationship Specialty Start Date End Date Rita Quiroga MD [address] [place] [phone] PCP - General 04/13/17 documented as of this encounter
--- OUTSIDE RECORDS SUMMARY | 2024-08-16 13:44 | XMS_ITS | Encounter Summary ---
Author Organization [facility] Address [address] [place] [address] Care Team Providers Care Front Desk Attendant Name Role Phone Rita Quiroga MD Primary Care Provider [phone] Encounter Details Date Type Department Care Team (Late Contact Info) Description 04/30/2017 Phlebotomy Only [address] [address] Upholstery Handler, Outpatient Tubal without intrauterine (Primary Dx) Social [...] Preg <5 <5 mIU/ml 04/30/2017 14:14 EDT [facility] Comment: Reference Range: Negative = <5 Indeterminate = 5-25 recommend repeat in 48 hours. Positive = >25 Blood specimen (specimen) BLOOD SPECIMEN / Unknown 04/30/2017 12:41 EDT 04/30/2017 12:55 EDT Jenifer Baker MD CHEMISTRY & BLOO D GAS ORDERABLES [facility] [address] [place] [address] documented in this encounter Visit Diagnoses Diagnosis Tubal without intrauterine - Primary documented in this encounter Care Teams Front Desk Attendant Relationship Specialty Start Date End Date Rita Quiroga MD [address] [place] [phone] PCP - General 04/13/17 documented as of this encounter
--- OUTSIDE RECORDS SUMMARY | 2024-08-16 13:44 | XMS_ITS | Encounter Summary ---
Author Organization [facility] Address [facility] [place] [address] Care Team Providers Care Digital Associate Name Role Phone Rita Quiroga MD Primary Care Provider [phone] Reason for Visit * Reason Comments Skin Check Encounter Details Date Type Department Care Team (Late st Contact Info) Description 06/13/2020 11:30 AM EDT Office Visit Dermatology at [facility] [address] [place] [address] Laura Donovan MD 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
--- OUTSIDE RECORDS SUMMARY | 2024-08-16 13:44 | XMS_ITS | Encounter Summary ---
Author Organization [facility] Address [address] [place] [address] Care Team Providers Care Silk Screen Printer Name Role Phone Rita Quiroga MD Primary Care Provider [phone] Encounter Details Date Type Department Care Team (Late st Contact Info) Description 02/25/2023 Lab Requisition [facility] Pathology & Laboratory Medicine - [address] [address] Boo Viera MD [address] [place] [phone] Encounter for other general examination Social [...] explore management options, if applicable. 03/04/2023 16:02 [facility] Final Diagnosis A. SOFT TISSUE OF WRIST, LEFT DORSAL, MASS, EXCISION: - Ganglion cyst. 03/04/2023 16:02 [facility] Attestation There was significant resident/fellow involvement in the diagnostic evaluation of this case. By the signature below, the attending physician certifies that they have personally conducted a gross and/or microscopic examination of the described specimens and rendered or confirmed the above diagnosis. 03/04/2023 16:02 [facility] at 1602 Clinical History Left wrist pain 03/04/2023 16:02 [facility] Gross Description A. Received [...] is entirely submitted intact in A1. HAJA BARNETT([facility]) 02/26/2023 10:57 03/04/2023 16:02 [facility] Resident/Ant w: Kierra Webb DO 03/04/2023 16:02 EDT [facility] Performing Lab [facility] 03/04/2023 16:02 T [facility] Scanned Images 03/04/2023 16:02 [facility] Tissue SOFT TISSUE / Unknown 02/25/2023 10:36 EDT 02/26/2023 9:05 EDT Boo Viera MD PATHOLOGY ORDERABLES [facility] [address] [place] [address] documented in this encounter Visit Diagnoses Diagnosis Encounter for other general examination documented in this encounter Care Teams Silk Screen Printer Relationship Specialty Start Date End Date Rita Quiroga MD [address] [place] [phone] PCP - General 04/13/17 documented as of this encounter
--- OUTSIDE RECORDS SUMMARY | 2024-08-16 13:44 | XMS_ITS | Continuity of Care Document ---
Author Organization [facility] Address [address] [place] [address] Assessment No assessment recorded. Plan of Treatment Reminders Order Date Submit Date Provider Last Modified By Organization Details Last Modified Time Details Appointments Annual Wellness Exam 30 2024 02:20P M Not available Not available Not available Lab TSH, serum, reflex free T4 2023 024 [facility] (Registration ), [address] [place] [address] [place], [address], 06/13/2024 16:45:10 thyroglob ulin Ab, serum [address] [facility] (Registration ), [address] [place] [address] [place], [address], 06/24/2024 09:59:58 thyropero xidase Ab, serum 2023 024 [facility] (Registration ), [address] [place] [address] [place], [address], 06/13/2024 16:44:45 Referral None recorded. Procedures None recorded. Surgeries None recorded. Imaging None recorded. Medication Orders None recorded. Patient TargetsNo targets recorded. Patient InstructionsNo instructions recorded. Reason for Referral Puff Ironer Referral for Irritable bowel syndrome loose stool daily, often crampy, IBS episodes are more frequent, Referring Physician: Rita Liu, Family Medicine, Encounter Date: 03/26/2024 Results Created Date Observation Date Name Description Value Unit Range Abnormal Flag Note LastModifiedBy Organization Detail LastModifiedTime 08/16/20 24 12/20/2021 imagi ng/di agnos tic [...] Recorded Time Epidermo id cyst of skin 710494540 Completed 201405/30/2015 Problem Code: L72.3; Problem Code Type: ICD-10; Not Available [facility] 3 04:48:05 Fatigue 55451830 Completed 201505/21/2016 Problem Code: R53.83; Problem Code Type: ICD-10; Not Available [facility] 3 04:48:05 Disorder of skin and/or subcutan eous tissue 03447567 Completed 201508/29/2016 07/05/20 16 - Comments only - Rita Liu MD - pper her request, she is referred to dermatshelton patricio. Problem Code: L98.9; Problem Code Type: ICD-10; Not Available [facility] 3 04:48:05 Traumati c or non-trau matic injury 969630494 Completed 201507/26/2016 07/05/20 16 - Comments only - Rita Liu MD - Of her foot, no evidence of fracture , simply monitori ng for now. Problem Code: T14.8; Problem Code Type: ICD-10; Not Available [facility] 3 04:48:05 Localize d enlarged lymph nodes 087312446 Completed 201507/26/2016 07/05/20 16 - Comments only - Rita Liu MD - This is not diffuse, has been only present for a few days, and is tender, most likely a reactive lymphade nopathy. Return to clinic if she develops diffuse lymphade nopathy Problem Code: R59.0; Problem Code Type: ICD-10; Not Available [facility] 3 04:48:05 Acute upper respirat ory infectio n 57826163 Completed 201611/03/2017 10/20/20 17 - Comments only - Rita Liu MD - symptoma tic treatmen t with tylenol or NSAIDs, discusse d natural history of viral URI, sytmpoms up to 10-14 days. Problem Code: J06.9; Problem Code Type: ICD-10; Not Available [facility] 3 04:48:06 Adult health examinat ion Active [address], [place], [address] , [place] - [facility]. 4 22:19:38 Nonulcer dyspepsi a 3388163 Active 2017 PHILIP dahl [place] - [facility]. 4 10:25:18 Allergic rhinitis 83623570 Completed 201708/27/2023 03/07/20 23 - Comments only - Rita Liu MD - Better with leif fishman, and her cough is much better as well. Does continue to loratadi ne as well. Problem Code: J30.9; Problem Code Type: ICD-10; Not Available [facility] 3 04:48:06 Chronic tension- type headache 247031071 Active 2018 RITA LIU MD [address], [place], [address] , [facility] 3 15:42:23 Idiopath ic osteoart hritis 381179560 Active [address], [place], [address] , [facility] 4 22:20:00 Acute upper respirat ory infectio n 46722144 Completed 201802/08/2019 01/25/20 19 - Comments only - Rita Liu MD - No evidence currentl y of bacteria l superinf ection, somatic treatmen t. Written informat ion for trying to avoid sinusiti s is written and given. Problem Code: J06.9; Problem Code Type: ICD-10; Not Available [facility] 3 04:48:06 Acute upper respirat ory infectio n 09193242 Completed 201806/16/2019 Problem Code: J06.9; Problem Code Type: ICD-10; Not Available [facility] 3 04:48:07 Fatigue 24431111 Completed 201806/16/2019 06/02/20 19 - Comments only - Rita Liu MD - Will check CBC. She has been anemic in the past. Problem Code: R53.83; Problem Code Type: ICD-10; Not Available [facility] 3 04:48:07 Anemia 426046760 Completed 201806/16/2019 Problem Code: D64.9; Problem Code Type: ICD-10; Not Available [facility] 3 04:48:07 Non-supp urative otitis media 459085620 Completed 201806/16/2019 06/02/20 19 - Comments only - Rita Liu MD - If symptoms worsen, I gave her a written prescrip tion for amoxicil aida 500 3 times daily to fill. Problem Code: H65.92; Problem Code Type: ICD-10; Not Available [facility] 3 04:48:07 Tinnitus of left ear 65424771625 06 Active 2018 ENT/hear ing evaluati on normal 2019 RITA LIU MD [address], [place], [address] , [place] - [facility]. 4 22:18:27 Neck pain 88885575 Completed 201811/17/2019 11/03/20 19 - Comments only - Rita Liu MD - Referral to physical therapy Problem Code: M54.2; Problem Code Type: ICD-10; Not Available [facility] 3 04:48:07 Cough 73731048 Completed 201812/13/2019 11/29/20 19 - Comments only - Shelia Mary Gold PATTERN PERFORATING MACHINE OPERATOR - Likely due to post-raeann al drip and irritati on from cold air. Lung sounds clear today with good aeration , no cough heard during patient encounte r. [facility] ed covering mouth/no se while running to avoid cold air and allergy symptom mgmt. Advised of red flag sx requirin g emergenc y care (difficu lty breathin g); [facility] ed f/u if cough or tightnes s in chest while running persists Problem Code: R05; Problem Code Type: ICD-10; Not Available [facility] 3 04:48:08 Asteatos is cutis 61944193 Completed 201812/13/2019 11/29/20 19 - Comments only - Shelia Mary Gold PATTERN PERFORATING MACHINE OPERATOR - Due to history of eczema as a child and current presenta tion, likely eczema. [facility] ed use of emollien t cream and protecti ng from cold air. Problem Code: L85.3; Problem Code Type: ICD-10; Not Available [facility] 3 04:48:08 Mild intermit tent asthma 078213561 Active 2019 PHILIP dahl [place] - [facility]. 4 10:25:14 Contrace ption care manageme nt Active 2019 PHILIP dahl [facility] 4 10:22:54 Left upper quadrant pain 419966153 Completed 202009/12/2021 08/29/20 21 - Comments only - Rita Liu MD [...] R10.12; Problem Code Type: ICD-10; Not Available [facility] 3 04:48:08 Nausea 198145988 Completed 202009/12/2021 Problem Code: R11.0; Problem Code Type: ICD-10; Not Available [facility] 3 04:48:08 Palpitat ions 17098735 Active 2021 reassuri ng holter monitors 12/2021 and 10/2023- PAC and PVCs metoprol ol 10/2023 RITA LIU MD [facility] [address], [place], [address] , [facility] 4 22:21:38 Irritabl e bowel syndrome 89883857 Active 2022 PHILIP dahl [facility] 4 10:25:02 Acute vaginiti s 81425038 Completed 202206/30/2023 06/16/20 23 - Comments only - Rita Liu MD - vaginal screen obtained today. Problem Code: N76.0; Problem Code Type: ICD-10; Not Available [facility] 3 04:48:09 Anxiety disorder 065383109 Active 2022 PHILIP dahl [facility] 4 10:25:50 Pelvic and perineal pain 145083059 Completed 202003/07/2023 Problem Code: R10.2; Problem Code Type: ICD-10; Not Available [facility] 3 04:48:10 Gastroes ophageal reflux disease without esophagi tis 976336694 Completed 201708/27/2023 06/02/20 19 - Comments only - Rita Liu MD - Continue with martha sullivan. 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[place] an tubes 89885788250 79301 Completed 201803/15/2020 Problem Code: H69.83; Problem Code Type: ICD-10; Not Available [facility] 3 04:48:10 Pain of left wrist 37636539729 9102 Completed 202003/07/2023 Problem Code: M25.532; Problem Code Type: ICD-10; Not Available [facility] 3 04:48:10 Pain of right shoulder joint 85567355012 749892 Completed 201709/13/2020 Problem Code: M25.511; Problem Code Type: ICD-10; Not Available [facility] 3 04:48:11 Vaginal bleeding 678521370 Completed 201704/30/2018 Not Available [facility] 3 04:48:11 Family history of hemochro matosis 373388270 Completed 201508/27/2023 RITA LIU MD [address], [place], [address] , [facility]. 4 22:16:04 Health conditio n feared but not present 80418858249 9109 Completed 202206/16/2023 Problem Code: Z71.1; Problem Code Type: ICD-10; Not Available [facility] 3 04:48:11 Acute upper respirat ory infectio n 76926297 Completed 202103/07/2023 Problem Code: J06.9; Problem Code Type: ICD-10; Not Available [facility] 3 04:48:11 Uncompli cated mild persiste nt asthma 418760239 Completed 201908/27/2023 03/15/20 20 - Comments only - Rita Liu MD - Continue wtih the leif fisher Will try to control her nose/all ergies as much as possible with neti pot and flonase daily. Referral to Dr. Yesenia méndez for allergy testing. Use albutero l prior to exercise . If symptoms persist, follow up and will consider adding inhaled steroid with or without LABA. Problem Code: J45.30; Problem Code Type: ICD-10; Not Available [facility] 3 04:48:12 History of Lyme disease 236553385 Active 2023 PHILIP dahl, [facility] 4 10:24:38 Rhinitis 04913587 Active 2017 allergic MD [address], [facility] [address] , [facility] 4 22:17:08 Tension- type headache 208821173 Active 2018 Stormy dahl, [facility] 4 14:03:32 Family history of hemochro matosis 981896967 Active [address], [facility] [address] , [facility] 4 22:16:04 Past pregnanc y history of ectopic pregnanc y 028490269 Active 2016 [place], treated with medicati ons. MD [address], [place], [address] , [facility] 4 22:16:57 Recurren t major depressi on 69368946 Active [address], [facility] [address] , [facility] 4 22:19:29 Subclini max hypothyr oidism 22141449 Active 2022 RITA LIU MD [address], [place], [address] , [facility] 4 22:28:28 Problem Notes None recorded. [...] Available Not Avai lable OptiChamb er Fe [facility] spacer USE DIRECTED 03/10 completed Not Available Not Available Not Available Vitals None Recorded Social History Question Answer Notes LastModified by Organization Details LastModified Time Tobacco Smoking Status Never Smoker occassionally in the past NICOLETTE HELTON LPN null, [place] - [facility]. 03/10/2024 15:12:04 Would You Say That, [...] Mother Family history of Depression Notes:*Problem: Mother: Aliv e age 59, depression tx, Father: Alive [...] Recorded Time MMR 07/28/1990 completed Not Available [facility] 05:27:43 MMR 09/27/1998 completed Not Available [facility] 05:27:44 DTaP, unspecified formulation 05/13/1994 completed Not Available [facility] 10/10/2023 05:27:44 DTaP, unspecified formulation 1989 completed Not Available [facility] 10/10/2023 05:27:44 DTaP, unspecified formulation 1989 completed Not Available [facility] 10/10/2023 05:27:44 DTaP, unspecified formulation 10/02/1990 completed Not Available [facility] 10/10/2023 05:27:44 DTaP, unspecified formulation 1989 completed Not Available [facility] 10/10/2023 05:27:44 meningococcal ACWY, unspecified formulation 07/02/2007 completed Not Available [facility] 10/10/2023 05:27:44 Tdap 02/08/2011 completed Not Available [facility] 05:27:44 Tdap 08/29/2021 completed Not Available [facility] 05:27:45 HPV, unspecified formulation 04/28/2008 completed Not Available [facility] 10/10/2023 05:27:45 HPV, unspecified formulation 07/02/2007 completed Not Available [facility] 10/10/2023 05:27:45 HPV, unspecified formulation 10/20/2007 completed Not Available [facility] 10/10/2023 05:27:45 Td(adult) unspecified formulation 09/24/2004 completed Not Available [facility] 10/10/2023 05:27:45 Influenza, split virus, quadrivalent, PF 08/29/2021 completed Not Available [facility] 10/10/2023 05:27:45 Influenza, split virus, quadrivalent, PF 09/13/2020 completed Not Available [facility] 10/10/2023 05:27:45 Influenza, MDCK, trivalent, PF 10/11/2015 completed Not Available [facility] 10/10/2023 05:27:45 COVID-19, mRNA, LNP-S, PF, 30 mcg/0.3 mL dose 02/09/2021 completed Not Available [facility] 10/10/2023 05:27:45 COVID-19, mRNA, LNP-S, PF, 30 mcg/0.3 mL dose 03/09/2021 completed Not Available [facility] 10/10/2023 05:27:46 SARS-COV-2 (COVID-19) vaccine, UNSPECIFIED 08/28/2022 completed Not Available [facility] 10/10/2023 05:27:46 SARS-COV-2 (COVID-19) vaccine, UNSPECIFIED 09/24/2021 completed Not Available [facility] 10/10/2023 05:27:46 Hep B, unspecified formulation 07/04/2000 completed Not Available [facility] 10/10/2023 05:27:46 Hep B, unspecified formulation 07/27/1997 completed Not Available [facility] 10/10/2023 05:27:46 Hep B, unspecified formulation 10/08/1999 completed Not Available [facility] 10/10/2023 05:27:46 Hep A, unspecified formulation 12/03/2006 completed Not Available [facility] 10/10/2023 05:27:46 Hep A, unspecified formulation 05/02/2005 completed Not Available [facility] 10/10/2023 05:27:46 influenza, unspecified formulation 09/10/2018 completed Not Available [facility] 10/10/2023 05:27:46 influenza, unspecified formulation 09/14/2019 completed Not Available [facility] 10/10/2023 05:27:47 polio, unspecified formulation 05/03/1994 completed Not Available [facility] 10/10/2023 05:27:47 polio, unspecified formulation 1989 completed Not Available [facility] 10/10/2023 05:27:47 polio, unspecified formulation 1989 completed Not Available [facility] 10/10/2023 05:27:47 COVID-19, mRNA, LNP-S, PF, sb-sucrose, 30 mcg/0.3 mL 09/24/2023 completed Not Available [facility] 12/12/2023 05:33:14 Past Encounters Encounter ID Performer Location Encounter Start Date Encounter Closed Date Diagnosis/Indication Diagnosis SNOMED-CT Code Diagnosis ICD10 Code [id number] Lynne Drake RN [facility] [address] [place] [address] 06/10/2024 10:23:38 06/10/2024 10:36:34 [facility] [id number] E03.9 Health Concerns Section Related Observation LastModified by Organization Detai ls LastModified Time None Recorded Concern Status LastModified by Organization Details LastModified Time None Recorded Payers Encounter Date Sequence Insurance Name Policy Number Policy Cruz Covered Member ID Cruz Member ID Guarantor Name 06/10/2024 1 [place] [employer] [place] Roxanne Beltran [id number] Roxanne V Devin OBGyn Episode No OBEpisode recorded.
--- OUTSIDE RECORDS SUMMARY | 2024-08-16 13:44 | XMS_ITS | Referral Summary ---
Author Organization Health system Address [address] [place] [address] Care Team Providers Care Patch Press Operator Name Role Phone Rita Quiroga MD Primary Care Provider [phone] Encounters Date Type Department Care Team Description 06/10/2024 Lab Requisition [facility] Pathology & Laboratory Medicine - [facility] [address] [place] [address] Outr Resulting Lab, Provider from Last 3 [...] on file Medical Devices Implanted Type Area Leaf Binner Device Identifier Shelf Expiration Date Model / [...] 137(H) <=60 U/mL 2023 10:10 EDT [facility] Thyroperoxidase Ab >1,300(H) <=60 U/mL 2023 10:10 EDT [facility] Blood VENOUS BLOOD / Unknown 06/10/2024 10:30 EDT 06/10/2024 22:43 EDT Provider Outr Resulting Lab CHEMISTRY & BLOOD GAS ORDERABLES [facility] [address] [place], [place] [id number] * HEPATITIS C AB W REFLEX TO HCV RNA BY PCR (03/10/2024 16:00 EDT) Hep C Antibody Negative Negative 03/11/2024 19:02 EDT [facility] Blood VENOUS BLOOD / Unknown 03/10/2024 16:00 EDT 03/11/2024 17:31 EDT Provider Outr Resulting Lab CHEMISTRY & BLOOD GAS ORDERABLES [facility] [address] [place], [place] [address] from Last 3 Months or Most Recently Relevant to Health Maintenance Care Teams Patch Press Operator Relationship Specialty Start Date End Date Rita Quiroga MD [address] [place] [phone] PCP - General 04/13/17
--- OUTSIDE RECORDS SUMMARY | 2024-08-16 13:44 | XMS_ITS | Encounter Summary ---
Author Organization [facility] Address [address] [place] [address] Care Team Providers Care Tanning Wheel Operator Name Role Phone Rita Quiroga MD Primary Care Provider Encounter Details Date Type Department Care Team (Late st Contact Info) Description 03/11/2024 Lab Requisition [facility] Pathology & Laboratory Medicine - [address] [address] Outr Resulting Lab, Provider Social History Tobacco [...] Lab CHEMISTRY & BLOOD GAS ORDERABLES [facility] [address] [place], [place] [address] documented in this encounter Visit Diagnoses Not on filedocumented in this encounter Care Teams Tanning Wheel Operator Relationship Specialty Start Date End Date Rita Quiroga MD [address] [place] [phone] PCP - General 04/13/17 documented as of this encounter
--- OUTSIDE RECORDS SUMMARY | 2024-08-16 13:44 | XMS_ITS | Encounter Summary ---
Author Organization [facility] Address [address] [place] [address] Care Team Providers Care Clerk Carrier Name Role Phone Rita Quiroga MD Primary Care Provider Reason for Visit * Reason Onset Date Comments Results 05/14/2017 Encounter Details Date Type Department Care Team (Late Contact Info) Description 05/14/[address] [facility] OBGYN Services - [address] [address] Fide Saenz, SANDRO Results Social History Tobacco [...] blood work done 05/12/17 was negative. Given INSURANCE CLAIM REPRESENTATIVE Triage # for further questions. * Telephone Encounter - Fide Saenz RN - 05/14/[address] Baker: Please let Roxanne know that her STI testing was all negative. documented in this encounter Plan of Treatment Not on file documented as of this encounter Visit Diagnoses Not on filedocumented in this encounter Care Teams Clerk Carrier Relationship Specialty Start Date End Date Rita Quiroga MD [address] [place] [phone] PCP - General 04/13/17 documented as of this encounter
--- OUTSIDE RECORDS SUMMARY | 2024-08-16 13:45 | XMS_ITS | Encounter Summary ---
Author Organization [facility] Address [address] [place] [address] Care Team Providers Care Enterprise Systems Architect Name Role Phone Phyllis Vega MD Primary Care Provider [phone] Encounter Details Date Type Department Care Team (Late Contact Info) Description 08/11/2015 Results Only [facility]- [facility] [phone] Ace Melgoza, [address] [place] [address] Social History Tobacco Use Types Packs/Day Years [...] when reading/interpret ing unformatted reports. Name: ? HARMANSTEVEN ROXANNE Ricci ? Accession #: ? [id number] ? : ? 1990 (Age: 25) ??F [...] moderate amount of cytoplasm. ??The melanocytes show deflector operator maturation. ??(Dr. Sales)/n Document reviewed and electronically [...] Shahida 08/14/2015 7:28 PM End of Report [facility] 08/11/2015 17:4 7 EDT 08/14/2015 17:47 EDT Ace Melgoza DO PATHOLOGY ORDER DALLIN [facility] [address] [place] [address] documented in this encounter Visit Diagnoses Not on filedocumented in this encounter Care Teams Enterprise Systems Architect Relationship Specialty Start Date End Date Phyllis Vega MD [address] [place] [phone] PCP - General 03/24/09 04/12/17 documented as of this encounter
--- OUTSIDE RECORDS SUMMARY | 2024-08-16 13:45 | XMS_ITS | Encounter Summary ---
Author Organization [facility] Address [address] [place] [address] Care Team Providers Care Manager Of Creative Services Name Role Phone Phyllis Vega MD Primary Care Provider [phone] Encounter Details Date Type Department Care Team (Late st Contact Info) Description 01/25/2010 Abstract [facility] OBGYN Services [address] [address] Phyllis Vega MD [address] [place] [phone] Social History Tobacco Use Types Packs/Day [...] filedocumented in this encounter Care Teams Manager Of Creative Services Relationship Specialty Start Date End Date Phyllis Vega MD [address] [place] [phone] PCP - General 03/24/09 04/12/17 documented as of this encounter
--- OUTSIDE RECORDS SUMMARY | 2024-08-16 13:45 | XMS_ITS | Encounter Summary ---
Author Organization [facility] Address [address] [place] [address] Care Team Providers Care Target Aircraft Technician Name Role Phone Phyllis Vega MD Primary Care Provider Reason for Visit * Reason Onset Date Comments Eye Problem 10/16/2011 FLOATERS GETTING WORSE OVER THE PAST MONTH OR TWO LT>RT Appointment Related 10/16/2011 PT CALLED AN D WE SCHED HER FOR 10.30.11 PER EVELIO Encounter Details Date Type Department Care Team (Late st Contact Info) Description 10/16/2011 Telephone [facility] Ophthalmology - [address] [address] Daljit Dyer MD [address] [facility], [address] [place] [address] Eye Problem (FLOATERS GETTING WORSE [...] it would take them to get to [facility], if they were to be told to come. Pt lives in [place] and it would take her about 10mins to get to [facility]. Pt Will be going out of town from this Friday to next Friday. Phone #: [phone]: I gave this to Milly Linares To go over with EVELIO. documented in this encounter Plan of Treatment Not on file documented as of this encounter Visit Diagnoses Not on filedocumented in this encounter Care Teams Target Aircraft Technician Relationship Specialty Start Date End Date Phyllis Vega MD [address] [place] [phone] PCP - General 03/24/09 04/12/17 documented as of this encounter
--- OUTSIDE RECORDS SUMMARY | 2024-08-16 13:45 | XMS_ITS | Encounter Summary ---
Author Organization [facility] Address [address] [place] [address] Care Team Providers Care Supervisor Paste Plant Name Role Phone Rita Quiroga MD Primary Care Provider [phone] Encounter Details Date Type Department Care Team (Latest Contact Info) Description 04/13/2017 9:25 EDT - 04/13/2017 23:59 EDT Hospital Encounter [address] [address] Christine Michelle, GOVERNMENT TEACHER [address] [place] [address] Discharge Disposition: Auto Discharge Social [...] filedocumented in this encounter Care Teams Supervisor Paste Plant Relationship Specialty Start Date End Date Rita Quiroga MD [address] [place] [phone] PCP - General 04/13/17 documented as of this encounter
--- OUTSIDE RECORDS SUMMARY | 2024-08-16 13:45 | XMS_ITS | Encounter Summary ---
Author Organization [facility] Address [address] [place] [address] Care Team Providers Care Composition Floor Setter Name Role Phone Phyllis Vega MD Primary Care Provider [phone] Encounter Details Date Type Department Care Team (Late Contact Info) Description 07/27/2010 Results Only [facility] G[facility] [address] [place] [address] JeanieVenkatesh MD [address] [place] [address] [address] [place] [address] Social History Tobacco Use Types [...] ROXANNE PERES V ? Accession #: ? [id number] ? : ? 1990 (Age: 20) ??F [...] EDT Venkatesh Mendez MD PATHOLOGY ORDER DALLIN [facility] [address] [place] [address] documented in this encounter Visit Diagnoses Not on filedocumented in this encounter Care Teams Composition Floor Setter Relationship Specialty Start Date End Date Phyllis Vega MD [address] [place] [phone] PCP - General 03/24/09 04/12/17 documented as of this encounter
--- OUTSIDE RECORDS SUMMARY | 2024-08-16 13:45 | XMS_ITS | Encounter Summary ---
Author Organization [facility] Address [address] [place] [address] Care Team Providers Care Artifacts Conservator Name Role Phone Phyllis Vega MD Primary Care Provider [phone] Encounter Details Date Type Department Care Team (Late st Contact Info) Description 11/16/2009 Abstract [facility] OBGYN Services - [address] [address] Phyllis Vega MD [address] [place] [phone] Other General Counseling and Advice for [...] management documented in this encounter Care Teams Artifacts Conservator Relationship Specialty Start Date End Date Phyllis Vega MD [address] [place] [phone] PCP - General 03/24/09 04/12/17 documented as of this encounter
--- OUTSIDE RECORDS SUMMARY | 2024-08-16 13:45 | XMS_ITS | Encounter Summary ---
Author Organization [facility] Address [address] [place] [address] Care Team Providers Care Rn Observation Name Role Phone Phyllis Vega MD Primary Care Provider [phone] Encounter Details Date Type Department Care Team (Late st Contact Info) Description 09/13/2009 Abstract [facility] OBGYN Services [address] [address] Phyllis Vega MD [address] [place] [phone] Insertion of Intrauterine Contraceptive Device Social History [...] device documented in this encounter Care Teams Rn Observation Relationship Specialty Start Date End Date Phyllis Vega MD [address] [place] [phone] PCP - General 03/24/09 04/12/17 documented as of this encounter
--- OUTSIDE RECORDS SUMMARY | 2024-08-16 13:45 | XMS_ITS | Encounter Summary ---
Author Organization [facility] Address [address] [place] [address] Care Team Providers Care Cleaner And Dyer Name Role Phone Phyllis Vega MD Primary Care Provider [phone] Encounter Details Date Type Department Care Team ([facility] Contact Info) Description 12/30/2011 13:31 EST - 12/30/2011 23:59 EST Hospital Encounter [facility] [address] [place] [address] Daljit Dyer MD 111 [facility], [facility] [address] [place] [address] Discharge Disposition: Home or Self [...] on filedocumented in this encounter Care Teams Cleaner And Dyer Relationship Specialty Start Date End Date Phyllis Vega MD [address] [place] [phone] PCP - General 03/24/09 04/12/17 documented as of this encounter
--- OUTSIDE RECORDS SUMMARY | 2024-08-16 13:45 | XMS_ITS | Encounter Summary ---
Author Organization [facility] Address [address] [place] [address] Care Team Providers Care Lathe Turner Name Role Phone Phyllis Vega MD Primary Care Provider [phone] Encounter Details Date Type Department Care Team ([facility] st Contact Info) Description 05/25/2009 15:00 EDT - 05/25/2009 23:59 EDT Hospital Encounter [facility] Mood & Anxiety - [place] [address] [place] [address] Hazel Glasgow MD [address] [place] [phone] Discharge Disposition: Home or Self Care [...] Result No Chlamydia trachomatis DNA detected by meter repairer mediated amplification. [facility] Result No Neisseria gonorrhoeae DNA detected by meter repairer mediated amplification. [facility] 07/27/2009 18:0 2 EDT 07/27/2009 18:02 EDT Sixto Yip MD MSc MICROBIOLOG Y - GENERAL ORDERABLES Performing Organization Address City/State/[facility] [[email or web address]] Co de Phone Number [facility] [address] [place] [address] documented in this encounter Visit Diagnoses Not on filedocumented in this encounter Care Teams Lathe Turner Relationship Specialty Start Date End Date Phyllis Vega MD [address] [place] [phone] PCP - General 03/24/09 04/12/17 documented as of this encounter
--- OUTSIDE RECORDS SUMMARY | 2024-08-16 13:45 | XMS_ITS | Encounter Summary ---
Author Organization [facility] Address [address] [place] [address] Care Team Providers Care Guest Services Coordinator Name Role Phone Phyllis Vega MD Primary Care Provider [phone] Encounter Details Date Type Department Care Team ([facility] Contact Info) Description 06/07/2011 Abstract Used for ABSTRACTING Data [phone] Daljit Dyer MD 111 [facility], [facility] [address] [place] [address] Social History Tobacco Use Types [...] on filedocumented in this encounter Care Teams Guest Services Coordinator Relationship Specialty Start Date End Date Phyllis Vega MD [address] [place] [phone] PCP - General 03/24/09 04/12/17 documented as of this encounter
--- OUTSIDE RECORDS SUMMARY | 2024-08-16 13:45 | XMS_ITS | Encounter Summary ---
Author Organization [facility] Address [address] [place] [address] Care Team Providers Care Land Developer Name Role Phone Rita Quiroga MD Primary Care Provider [phone] Reason for Visit * Reason Onset Date Comments Appointment Related 04/17/2017 Encounter Details Date Type Department Care Team (Late st Contact Info) Description 04/17/2017 Telephone [facility] Dermatology [address] [address] Ana Hale, PA-C [address] [place] [address], [address] [place] [address] Appointment Related Social History Tobacco [...] referred on 07/08/[address] Rita Quiroga, [facility] for lesion, face - spot on [...] darker red in the middle, then gets plastics fabricator and assembler towards the edges Fairly circular Denies pain, [...] on filedocumented in this encounter Care Teams Land Developer Relationship Specialty Start Date End Date Rita Quiroga MD [address] [place] [phone] PCP - General 04/13/17 documented as of this encounter
--- OUTSIDE RECORDS SUMMARY | 2024-08-16 13:45 | XMS_ITS | Encounter Summary ---
Author Organization [facility] Address [address] [place] [address] Care Team Providers Care Medical Claims Specialist Name Role Phone Phyllis Vega MD Primary Care Provider [phone] Encounter Details Date Type Department Care Team ([facility] Contact Info) Description 09/21/2010 18:09 EDT - 09/21/2010 18:10 EDT Hospital Encounter [facility] - Other [address] [place] [address] Aracely Palma MD [address] [place] [phone] Discharge Disposition: Home or Self Care [...] on filedocumented in this encounter Care Teams Medical Claims Specialist Relationship Specialty Start Date End Date Phyllis Vega MD [address] [place] [phone] PCP - General 03/24/09 04/12/17 documented as of this encounter
--- OUTSIDE RECORDS SUMMARY | 2024-08-16 13:45 | XMS_ITS | Encounter Summary ---
Author Organization [facility] Address [address] [place] [address] Care Team Providers Care Extension Supervisor Name Role Phone Phyllis Vega MD Primary Care Provider [phone] Reason for Visit * Reason Comments Follow-up Hx of photopsias. Hx of migraines. Myopia. Still has blue spots in vision and squiggly floaters but no change. va stable. No pain. Encounter Details Date Type Department Care Team (Late st Contact Info) Description 04/12/2011 8:45 EDT Office Visit [facility] Ophthalmology - Main [address] [phone] Terry Sal MD [address] [place] [address], [address] [place] [address] Social History Tobacco Use Types [...] - 04/24/2011 1212 EDT DIVISION OF OPHTHALMOLOGY [facility] PROGRESS/FOLLOWUP NOTE - 04/12/2011 Daljit Dyer MD [facility] - Ophthalmology [address] [place] [address] Dear Daljit: This is a letter of [...] Terry Sal MD Retina and Vitreous Service [address] [place] [address] - Terry Sal MD - [facility] Job ID: SM Doc ID: [id number] [facility] Doc ID: [id number] cc: MD Manda Rosales OD * Terry [...] dilated exam . [facility] She [...] CR Scar 9 o'clock Normal Care Teams Extension Supervisor Relationship Specialty Start Date End Date Phyllis eVga MD [address] [place] [phone] PCP - General 03/24/09 04/12/17 documented as of this encounter
--- OUTSIDE RECORDS SUMMARY | 2024-08-16 13:45 | XMS_ITS | Encounter Summary ---
Author Organization [facility] Address [address] [place] [address] Care Team Providers Care Contact Center Assistant Name Role Phone Phyllis Vega MD Primary Care Provider [phone] Encounter Details Date Type Department Care Team (Late st Contact Info) Description 07/10/2010 Abstract [facility] Mood & Anxiety - [address] [place] [place] [address] Phyllis Vega MD [address] [place] [phone] Social History Tobacco Use Types Packs/Day [...] on filedocumented in this encounter Care Teams Contact Center Assistant Relationship Specialty Start Date End Date Phyllis Vega MD [address] [place] [phone] PCP - General 03/24/09 04/12/17 documented as of this encounter
--- OUTSIDE RECORDS SUMMARY | 2024-08-16 13:45 | XMS_ITS | Encounter Summary ---
Author Organization [facility] Address [address] [place] [address] Care Team Providers Care Police Officer Name Role Phone Phyllis Vega MD Primary Care Provider [phone] Encounter Details Date Type Department Care Team (Latest Contact Info) Description 2009 15:04 EDT - 2009 15:05 EDT Hospital Encounter [facility] - Other [address] [place] [address] Laura Bravo PA-C [address] [place] [phone] Discharge Disposition: Home or Self Care Social [...] on filedocumented in this encounter Care Teams Police Officer Relationship Specialty Start Date End Date Phyllis Vega MD [address] [place] [phone] PCP - General 03/24/09 04/12/17 documented as of this encounter
--- OUTSIDE RECORDS SUMMARY | 2024-08-16 13:45 | XMS_ITS | Encounter Summary ---
Author Organization [facility] Address [address] [place] [address] Care Team Providers Care Width Stripper Name Role Phone Phyllis Vega MD Primary Care Provider [phone] Encounter Details Date Type Department Care Team (Latest Contact Info) Description 2009 10:56 EDT - 2009 15:26 EDT Hospital Encounter [facility] [address] [address] Unknown, Provider, Discharge Disposition: Home or Self [...] & P F4 ORDERABLES Performing Organization Address City/State/[facility] Co de Phone Number [facility] [address] [place] [address] * CHEST PA AND LATERAL (2009 13:31 [...] on filedocumented in this encounter Care Teams Width Stripper Relationship Specialty Start Date End Date Phyllis Vega MD [address] [place] [phone] PCP - General 03/24/09 04/12/17 documented as of this encounter
--- OUTSIDE RECORDS SUMMARY | 2024-08-16 13:45 | XMS_ITS | Encounter Summary ---
Author Organization [facility] Address [address] [place] [address] Care Team Providers Care Technical Buyer Name Role Phone Phyllis Vega MD Primary Care Provider [phone] Reason for Visit * Reason Comments Migraine Ref from Dr. Sal and [facility] office. Ocular migraine, Myopia, Vitreous syneresis [...] Info) Description 06/12/2011 8:00 EDT Office Visit [facility] Ophthalmology - [address] [phone] Daljit Dyer MD 111 [facility], Level [address] [place] [address] Social History Tobacco Use Types [...] - 06/20/2011 0803 EDT DIVISION OF OPHTHALMOLOGY [facility] June 12, 2011 Sixto Lopes MD [facility] - Ophthalmology [address] [place] [address] Lopes: Roxanne Beltran was examined [...] MD - [facility] Job ID: Doc ID: [id number] Ext Doc ID: [id number] cc: MD Phyllis Bal MD * Daljit Dyer MD - 06/12/2011 0947 EDT Base Ophthalmology Exam Visual Acuity Right Left Dist sc 20/20 20/20 Near cc J1+ J1+ Method: Snellen - Linear Correction: Glasses Tonometry Right Left Pressure 13 13 Method: Applanation Time: 8:56 Wearing Rx Sphere Cylinder [place] Right +1.25 +2.50 92 Left -0.25 +0.25 98 Age: 5 yrs Type: SINGLE Manifest Refraction (Auto) Sphere Cylinder [place] Dist Right +1.25 +2.00 91 20/15 Left [...] has been dictated and scanned. Test Performed: [facility] 24-2 Indications for test: Ocular migraine Results/Findings: WNL each eye Plan: FU prn documented in this encounter Miscellaneous Notes * Scanned Note-Null - Eliel, Employee Benefits Manager - 06/14/2011 1131 EDT documented in this [...] in both eyes Wearing Rx Sphere Cylinder [place] Right eye +1.25 +2.50 92 Left eye -0.25 +0.25 98 Age: 5 yrs Type: SINGLE Manifest Refraction (Auto) Sphere Cylinder [place] Dist [place] Right eye +1.25 +2.00 91 20/15 Left eye -1.25 +0.25 111 20/15 Care Teams Technical Buyer Relationship Specialty Start Date End Date Phyllis Vega MD [address] [place] [phone] PCP - General 03/24/09 04/12/17 documented as of this encounter
--- OUTSIDE RECORDS SUMMARY | 2024-08-16 13:45 | XMS_ITS | Encounter Summary ---
Author Organization [facility] Address [address] [place] [address] Care Team Providers Care Copywriter Name Role Phone Phyllis Vega MD Primary Care Provider [phone] Encounter Details Date Type Department Care Team ([facility] Contact Info) Description 06/11/2010 12:51 EDT - 06/11/2010 23:59 EDT Hospital Encounter [facility] [address] [place] [address] Mauri Ware MD [address] [place] [address] [address] [place] [address] Discharge Disposition: Home or Self [...] Code Departure Means Destination Home or Self Usp documented in this encounter Plan of Treatment [...] BLO OD GAS ORDERABLES Performing Organization Address [facility] Co de Phone Number [facility] [address] [place] [address] * TISSUE TRANSGLUTAMINASE ANTIBODY (06/11/2010 13:10 EDT) Tissue Transglutaminase Ab 1.28 <15.01 U/ml [facility] Blood specimen (specimen) 06/11/2010 13:10 EDT 06/11/2010 13:12 EDT Mauri Ware MD IMMUNOLOGY AND SEROLOGY ORDERABLES Performing Organization Address [facility] Co de Phone Number [facility] [address] [place] [address] * LIVER FUNCTION TESTS (06/11/2010 13:10 EDT) [...] BLO OD GAS ORDERABLES Performing Organization Address City/[facility]/ZIP Co de Phone Number [facility] [address] [place] [address] * (ABNORMAL) FERRITIN (06/11/2010 13:10 EDT) Pathologist [facility] Ferritin 5(L) 10 - 291 ng/mL [facility] Blood specimen (specimen) 06/11/2010 13:10 EDT 06/11/2010 13:12 EDT Mauri Ware MD CHEMISTRY & BLO OD GAS ORDERABLES Performing Organization Address [facility]/ZIP Co de Phone Number [facility] [address] [place] [address] * (ABNORMAL) IBC (06/11/2010 13:10 EDT) TIBC 554(H) 265 - 497 ug/dl [facility] Blood specimen (specimen) 06/11/2010 13:10 EDT 06/11/2010 13:12 EDT Mauri Ware MD CHEMISTRY & BLO OD GAS ORDERABLES Performing Organization Address City/[facility] Co de Phone Number [facility] [address] [place] [address] * IRON (06/11/2010 13:10 EDT) Iron 62 60 - 180 ug/dl [facility] Blood specimen (specimen) 06/11/2010 13:10 EDT 06/11/2010 13:12 EDT Mauri Ware MD CHEMISTRY & BLO OD GAS ORDERABLES Performing Organization Address [facility] Co de Phone Number [facility] [address] [place] [address] * (ABNORMAL) HEMAGRAM (06/11/2010 13:10 EDT) WBC [...] & PF 4 ORDERABLES Performing Organization Address City/[facility] Co de Phone Number [facility] [address] [place] [address] documented in this encounter Visit Diagnoses Not on filedocumented in this encounter Care Teams Copywriter Relationship Specialty Start Date End Date Phyllis Vega MD [address] [place] [phone] PCP - General 03/24/09 04/12/17 documented as of this encounter
--- OUTSIDE RECORDS SUMMARY | 2024-08-16 13:45 | XMS_ITS | Encounter Summary ---
Author Organization [facility] Address [address] [place] [address] Care Team Providers Care Crm Manager Name Role Phone Pyhllis Vega MD Primary Care Provider [phone] Encounter Details Date Type Department Care Team (Late st Contact Info) Description 07/27/2010 12:48 EDT - 07/27/2010 23:59 EDT Hospital Encounter [facility] [address] [place] [address] Boo Jim MD 111 [facility], Level [address] [place] [address] Mauri Ware MD [address] [place] [address] [address] [place] [address] Discharge Disposition: Home or Self [...] or Self Intermediate documented in this encounter Procedure Notes * [...] on filedocumented in this encounter Care Teams Crm Manager Relationship Specialty Start Date End Date Phyllis Vega MD [address] [place] [phone] PCP - General 03/24/09 04/12/17 documented as of this encounter
--- OUTSIDE RECORDS SUMMARY | 2024-08-16 13:45 | XMS_ITS | Encounter Summary ---
Author Organization [facility] Address [address] [place] [address] Care Team Providers Care Electrologist Name Role Phone Rita Quiroga MD Primary Care Provider [phone] Encounter Details Date Type Department Care Team (Late st Contact Info) Description 04/16/2017 Phlebotomy Only [address] [address] Kitchen Bath Designer, Outpatient of unknown anatomic location (Primary Dx) [...] 10 - 26 mg/dl 04/16/2017 9:38 EDT [facility] Blood specimen (specimen) BLOOD SPECIMEN / Unknown 04/16/2017 8:37 EDT 04/16/2017 8:53 EDT Jenifer Baker MD CHEMISTRY & BLOO D GAS ORDERABLES Performing Organization Address City/[facility] Co de Phone Number [facility] [address] [place] [address] * CREATININE (04/16/2017 8:37 EDT) Creatinine 0.61 0.52 - 1.04 mg/dl 04/16/2017 9:38 EDT [facility] GFR, Calculated 124 >60 ml/min/1.7 3m2 04/16/2017 9:38 EDT [facility] Comment: eGFR calculated using CKD-EPI equation for non Americans. Multiply eGFR by 1.16 for Americans. Blood specimen (specimen) BLOOD SPECIMEN / Unknown 04/16/2017 8:37 EDT 04/16/2017 8:53 EDT Jenifer Baker MD CHEMISTRY & BLOO D GAS ORDERABLES Performing Organization Address City/[facility]/ZIP Co de Phone Number [facility] [address] [place] [address] * AST (04/16/2017 8:37 EDT) AST 18 15 - 46 U/L 04/16/2017 9:38 EDT [facility] Blood specimen (specimen) BLOOD SPECIMEN / Unknown 04/16/2017 8:37 EDT 04/16/2017 8:53 EDT Jenifer Baker MD CHEMISTRY & BLOO D GAS ORDERABLES [facility] [address] [place] [address] * ALT (04/16/2017 8:37 EDT) ALT 20 <53 U/L 04/16/2017 9:38 EDT [facility] Blood specimen (specimen) BLOOD SPECIMEN / Unknown 04/16/2017 8:37 EDT 04/16/2017 8:53 EDT Jenifer Baker MD CHEMISTRY & BLOO D GAS ORDERABLES Performing Organization Address City/[facility] Co de Phone Number [facility] [address] [place] [address] * (ABNORMAL) HEMAGRAM (04/16/2017 8:37 EDT) WBC 7.89 4.0 - 12.4 K/cmm 04/16/2017 9:16 [facility] RBC 4.29 3.86 - 5.04 M/cmm 04/16/2017 9:16 [facility] Hemoglobin 11.8 11.6 - 15.2 gm/dl 04/16/2017 9:16 [facility] HCT 35.6 34.9 - 44.4 % 04/16/2017 9:16 [facility] MCV 83 81 - 98 fl 04/16/2017 9:16 [facility] MCH 27.5 26.7 - 33.3 pg 04/16/2017 9:16 [facility] MCHC 33.1 32.1 - 35.9 gm/dl 04/16/2017 9:16 [facility] RDW-CV 15.1(H) <14.7 % 04/16/2017 9:16 [facility] RDW-SD 46.3 <50.4 fl 04/16/2017 9:16 [facility] PLT 287 141 - 377 K/cmm 04/16/2017 9:16 EDT [facility] MPV 11.0 9.5 - 12.7 fl 04/16/2017 9:16 EDT [facility] Blood specimen (specimen) BLOOD SPECIMEN / Unknown 04/16/2017 8:37 EDT 04/16/2017 8:53 EDT Jenifer Baker MD HEMATOLOGY & PF4 ORDERABLES Performing Organization Address City/[facility]/ZIP Co de Phone Number [facility] [address] [place] [address] * (ABNORMAL) HCG FOR (04/16/2017 8:37 EDT) Quant Beta HCG, Preg 317(H) <5 mIU/ml 04/16/2017 9:38 EDT [facility] Comment: Reference Range: Negative = <5 Indeterminate = 5-25 recommend repeat in 48 hours. Positive = >25 Blood specimen (specimen) BLOOD SPECIMEN / Unknown 04/16/2017 8:37 EDT 04/16/2017 8:53 EDT Jenifer Baker MD CHEMISTRY & BLOO D GAS ORDERABLES [facility] [address] [place] [address] documented in this encounter Visit Diagnoses Diagnosis of unknown anatomic location- Primary state, incidental documented in this encounter Care Teams Electrologist Relationship Specialty Start Date End Date Rita Quiroga MD [address] [place] [phone] PCP - General 04/13/17 documented as of this encounter
--- OUTSIDE RECORDS SUMMARY | 2024-08-16 13:45 | XMS_ITS | Encounter Summary ---
Author Organization [facility] Address [address] [place] [address] Care Team Providers Care Pit Clerk Name Role Phone Rita Quiroga MD Primary Care Provider [phone] Encounter Details Date Type Department Care Team (Latest Contact Info) Description 04/15/2017 9:35 EDT - 04/15/2017 23:59 EDT Hospital Encounter [address] [address] Christine Michelle, BRIDGE RIGGER [address] [place] [address] Discharge Disposition: Home or Self [...] Departure Means Destination Home or Self Senior Living documented in this encounter Plan of Treatment Not on file documented as of this encounter Visit Diagnoses Not on filedocumented in this encounter Care Teams Pit Clerk Relationship Specialty Start Date End Date Rita Quiroga MD [address] [place] [phone] PCP - General 04/13/17 documented as of this encounter
--- OUTSIDE RECORDS SUMMARY | 2024-08-16 13:45 | XMS_ITS | Encounter Summary ---
Author Organization [facility] Address [address] [place] [address] Care Team Providers Care Machine Tank Operator Name Role Phone Rita Quiroga MD Primary Care Provider [phone] Encounter Details Date Type Department Care Team (Late st Contact Info) Description 04/13/2017 Orders Only Non [facility] Ancillary Services Christine Michelle, CARE ADVOCATE [address] [place] [address] Other specified related conditions, first [...] Preg 287(H) <5 mIU/ml 04/15/2017 11:32 EDT [facility] Comment: Reference Range: Negative = <5 Indeterminate = 5-25 recommend repeat in 48 hours. Positive = >25 Blood specimen (specimen) BLOOD SPECIMEN / Unknown 04/15/2017 10:03 EDT 04/15/2017 10:45 EDT Christine Michelle CARE ADVOCATE CHEMISTRY & BLOOD G ORDERABLES [facility] [address] [place] [address] documented in this encounter Visit Diagnoses Diagnosis Other specified related conditions, first trimester- Primary documented in this encounter Care Teams Machine Tank Operator Relationship Specialty Start Date End Date Rita Quiroga MD [address] [place] [phone] PCP - General 04/13/17 documented as of this encounter
--- OUTSIDE RECORDS SUMMARY | 2024-08-16 13:45 | XMS_ITS | Encounter Summary ---
Author Organization [facility] Address [address] [place] [address] Care Team Providers Care Winder Hand Name Role Phone Phyllis Vega MD Primary Care Provider Reason for Visit * Reason Comments Emesis pt throwing up and d iarrhea x 2 hours Encounter Details Date Type Department Care Team (Late st Contact Info) Description 02/16/2010 1:08 EDT - 02/16/2010 3:13 EDT [facility] Emergency [facility] - Main [place] [address] [place] [address] Isidoro Faria [place] [facility] [place] [address] Emergency, Saman, Viral gastroenteritis Discharge [...] the original note were not included. [facility] Patient Instructions Gastroenteritis: After Your Visit Your [...] Where can you learn more? Go to [email or web address].[email or web address] Enter N142 in the search box to learn more about Gastroenteritis: After Your Visit. ?? 2005 - 2008 [employer]. Care instructions adapted under license by [facility], [facility] . This care instruction is for use with your licensed healthcare professional. If you have questions about a medical condition or this instruction, always ask your healthcare professional. [employer] disclaims any warranty or liability for your [...] Given IV fluids and Zofran for nausea. Logan better and discharged home. Discharge Prescriptions New [...] 02/16/2010 documented in this encounter Care Teams Winder Hand Relationship Specialty Start Date End Date Phyllis Vega MD [address] [place] [phone] PCP - General 03/24/09 04/12/17 documented as of this encounter
--- OUTSIDE RECORDS SUMMARY | 2024-08-16 13:45 | XMS_ITS | Encounter Summary ---
Author Organization [facility] Address [address] [place] [address] Care Team Providers Care Radio Installer Automobile Name Role Phone Phyllis Vega MD Primary Care Provider [phone] Reason for Visit * Reason Comments Follow-up MRI follow up. [facility]. Pt states less floaters, flashes and blue lights since last visit. No headaches. No eyepain. Floaters on going the same. Encounter Details Date Type Department Care Team (Late st Contact Info) Description 01/27/2012 10:00 EST Office Visit [facility] Ophthalmology - [address] [id number] Daljit Dyer MD [address] [facility], [address] [place] [address] Social History Tobacco Use Types [...] - 01/28/2012 0811 EST DIVISION [facility]ALMOLOGY [facility] January 27, 2012 Kimberlee Samson MD [address] [place] [address] Dear Jossy: This is to refer a patient both for your long-term care as well as some information regarding Roxnane Beltran. Specifically, she has had persistence of [...] Daljit Dyer MD 01/29/2012 18:29 [facility] - Daljit Dyer MD - Job ID: SM Doc ID: [id number] Ext Doc ID: [id number] cc: Jossy Atkins MD * Daljit Dyer MD - 01/27/2012 1230 EST . Base Ophthalmology Exam Visual Acuity Right Left Both Dist cc 20/20 20/20 Method: Snellen - Linear Comments: Pt forgot glasses, used phoropter, with glasses RX Wearing Rx Sphere Cylinder [place] Right +0.75 +3.00 095 Left -0.25 +0.25 100 Type: Reading Wearing Rx #2 Sphere Cylinder [place] Right +1.25 +2.50 91 Left -0.25 +0.25 96 Type: SVL IMP: There are no diagnoses linked to this encounter. PLAN: I am scribing for Daljit Dyer MD while he is personally performing the service. VALENTINO Boykin (Scribe) documented in this encounter Miscellaneous Notes * Scanned Note-Null - INSPECTOR CIRCUITRY NEGATIVE, SCAN 2 - 01/30/2012 1124 EST documented [...] glasses RX Wearing Rx #1 Sphere Cylinder [place] Right eye +0.75 +3.00 095 Left eye -0.25 +0.25 100 Type: Reading Wearing Rx #2 Sphere Cylinder [place] Right eye +1.25 +2.50 91 Left eye -0.25 +0.25 96 Type: SVL Care Teams Radio Installer Automobile Relationship Specialty Start Date End Date Phyllis Vega MD [address] [place] [address] PCP - General 03/24/09 04/12/17 documented as of this encounter
--- OUTSIDE RECORDS SUMMARY | 2024-08-16 13:45 | XMS_ITS | Encounter Summary ---
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 OBGYN Services - [address] [address] eLni Delgado RN of unknown anatomic location (Primary [...] morning followed by US and CON in PRINCIPLE SOFTWARE ENGINEER clinic. Added to PRINCIPLE SOFTWARE ENGINEER beta hcg monitoring list. Reported height is 62 and weight is 118 pounds. documented in this encounter Plan of Treatment Not on file documented as of this encounter Procedures Procedure Name Priority Date/Time Associated Diagnosis Comments PRINCIPLE SOFTWARE ENGINEER OB FIRST TRIMESTER TRANSVAGINAL Routine 04/16/2017 9:23 EDT of unknown anatomic location documented in this encounter Results * PRINCIPLE SOFTWARE ENGINEER US OB FIRST TRIMESTER TRANSVAGINAL (04/16/2017 9:23 [...] ultrasound examination. View: Sufficient. Impression OB transvaginal [id number] Right adnexal mass adjacent to right ovary [...] ultrasound examination. View: Sufficient. Impression OB transvaginal [id number] Right adnexal mass adjacent to right ovary containing two CL's highly suspicious for tubal ectopic. Anteverted uterus with remnant Paragard IUD arm embedded into the right FRANKIE. No IUP identified. Left hemorrhagic cyst. The Paragard arm was removed under direct ultrasound visualization. Follow-up See [facility] notes for discussion of treatment plans for ectopic . Jenifer Baker MD IMG US PRINCIPLE SOFTWARE ENGINEER ORDER DALLIN * (ABNORMAL) BUN (04/16/2017 8:37 EDT) BUN 8(L) 10 - 26 mg/dl 04/16/2017 9:38 EDT [facility] Blood specimen (specimen) BLOOD SPECIMEN / Unknown 04/16/2017 8:37 EDT 04/16/2017 8:53 EDT Jenifer Baker MD CHEMISTRY & BLOO D GAS ORDERABLES [facility] [address] [place] [address] * CREATININE (04/16/2017 8:37 EDT) Creatinine 0.61 0.52 - 1.04 mg/dl 04/16/2017 9:38 EDT [facility] GFR, Calculated 124 >60 ml/min/1.7 3m2 04/16/2017 9:38 EDT [facility] Comment: eGFR calculated using CKD-EPI equation for non Americans. Multiply eGFR by 1.16 for Americans. Blood specimen (specimen) BLOOD SPECIMEN / Unknown 04/16/2017 8:37 EDT 04/16/2017 8:53 EDT Jenifer Baker MD CHEMISTRY & BLOO D GAS ORDERABLES Performing Organization Address [facility]/ZIP Co de Phone Number [facility] [address] [place] [address] * AST (04/16/2017 8:37 EDT) AST 18 15 - 46 U/L 04/16/2017 9:38 EDT [facility] Blood specimen (specimen) BLOOD SPECIMEN / Unknown 04/16/2017 8:37 EDT 04/16/2017 8:53 EDT Jenifer Baker MD CHEMISTRY & BLOO D GAS ORDERABLES Performing Organization Address City/[facility]/ZIP Co de Phone Number [facility] [address] [place] [address] * ALT (04/16/2017 8:37 EDT) ALT 20 <53 U/L 04/16/2017 9:38 EDT [facility] Blood specimen (specimen) BLOOD SPECIMEN / Unknown 04/16/2017 8:37 EDT 04/16/2017 8:53 EDT Jenifer Baker MD CHEMISTRY & BLOO D GAS ORDERABLES [facility] [address] [place] [address] * (ABNORMAL) HEMAGRAM (04/16/2017 8:37 EDT) WBC 7.89 4.0 - 12.4 K/cmm 04/16/2017 9:16 EDT [facility] RBC 4.29 3.86 - 5.04 M/cmm 04/16/2017 9:16 T [facility] Hemoglobin 11.8 11.6 - 15.2 gm/dl 04/16/2017 9:16 EDT [facility] HCT 35.6 34.9 - 44.4 % 04/16/2017 9:16 T [facility] MCV 83 81 - 98 fl 04/16/2017 9:16 T [facility] MCH 27.5 26.7 - 33.3 pg 04/16/2017 9:16 [facility] MCHC 33.1 32.1 - 35.9 gm/dl 04/16/2017 9:16 [facility] RDW-CV 15.1(H) <14.7 % 04/16/2017 9:16 [facility] RDW-SD 46.3 <50.4 fl 04/16/2017 9:16 [facility] PLT 287 141 - 377 K/cmm 04/16/2017 9:16 [facility] MPV 11.0 9.5 - 12.7 fl 04/16/2017 9:16 [facility] Blood specimen (specimen) BLOOD SPECIMEN / Unknown 04/16/2017 8:37 EDT 04/16/2017 8:53 EDT Jenifer Baker MD HEMATOLOGY & PF4 ORDERABLES [facility] [address] [place] [address] * (ABNORMAL) HCG FOR (04/16/2017 8:37 EDT) Quant Beta HCG, Preg 317(H) <5 mIU/ml 04/16/2017 9:38 EDT [facility] Comment: Reference Range: Negative = <5 Indeterminate = 5-25 recommend repeat in 48 hours. Positive = >25 Blood specimen (specimen) BLOOD SPECIMEN / Unknown 04/16/2017 8:37 EDT 04/16/2017 8:53 EDT Jenifer Baker MD CHEMISTRY & BLOO D GAS ORDERABLES [facility] [address] [place] [address] documented in this encounter Visit Diagnoses Diagnosis of unknown anatomic location- Primary state, incidental documented in this encounter Care Teams Calender Roll Press Operator Relationship Specialty Start Date End Date Rita Quiroga MD [address] [place] [phone] PCP - General 04/13/17 documented as of this encounter
--- OUTSIDE RECORDS SUMMARY | 2024-08-16 13:45 | XMS_ITS | Encounter Summary ---
Author Organization [facility] Address [address] [place] [address] Care Team Providers Care Picker Feeder Name Role Phone Rita Quiroga MD Primary Care Provider [phone] Reason for Visit * Reason Onset Date Comments Pharmacy 04/16/2017 Encounter Details Date Type Department Care Team (Late st Contact Info) Description 04/16/2017 Orders Only [facility] OBGYN Services - [facility] [address] [place] [address] Leni Delgado RN Social History Tobacco Use [...] on filedocumented in this encounter Care Teams Picker Feeder Relationship Specialty Start Date End Date Rita Quiroga MD [facility] [address] [phone] PCP - General 04/13/17 documented as of this encounter
--- OUTSIDE RECORDS SUMMARY | 2024-08-16 13:45 | XMS_ITS | Encounter Summary ---
Author Organization [facility] Address [address] [place] [address] Care Team Providers Care Earth Observations Chief Scientist Name Role Phone Phyllis Vega MD Primary Care Provider [phone] Encounter Details Date Type Department Care Team (Late st Contact Info) Description 06/06/2010 Results Only [facility] [phone] Giulia Denton MD [address] [place] [address] Social History Tobacco Use Types Packs/Day Years [...] JA, ROXANNE V ? Accession #: ? [id number] ? : ? 1990 (Age: 20) ??F [...] Denton MD PATHOLOGY ORDERABLES Performing Organization Address City/State/[facility] Co de Phone Number JULIO C SHEPHERD [address] [place] [address] documented in this encounter Visit Diagnoses Not on filedocumented in this encounter Care Teams Earth Observations Chief Scientist Relationship Specialty Start Date End Date Phyllis Vgea MD [address] [place] [phone] PCP - General 03/24/09 04/12/17 documented as of this encounter
--- OUTSIDE RECORDS SUMMARY | 2024-08-16 13:45 | XMS_ITS | Encounter Summary ---
Author Organization [facility] Address [address] [place] [address] Care Team Providers Care Public Health Outreach Worker Name Role Phone Phyllis Vega MD Primary Care Provider [phone] Encounter Details Date Type Department Care Team ([facility] Contact Info) Description 04/10/2011 Abstract Used for ABSTRACTING Data [phone] Terry Sal MD [address] [facility], [facility] [address] [place] [address] Social History Tobacco Use Types [...] on filedocumented in this encounter Care Teams Public Health Outreach Worker Relationship Specialty Start Date End Date Phyllis Vega MD [address] [place] [phone] PCP - General 03/24/09 04/12/17 documented as of this encounter
--- OUTSIDE RECORDS SUMMARY | 2024-08-16 13:45 | XMS_ITS | Encounter Summary ---
Author Organization [facility] Address [address] [place] [address] Care Team Providers Care Anthropology Lecturer Name Role Phone Rita Quiroga MD Primary Care Provider [phone] Encounter Details Date Type Department Care Team (Late Contact Info) Description 04/15/2017 Phlebotomy Only [address] [address] First Aid Trainer, Outpatient Other specified related conditions, first trimester [...] Preg 287(H) <5 mIU/ml 04/15/2017 11:32 EDT [facility] Comment: Reference Range: Negative = <5 Indeterminate = 5-25 recommend repeat in 48 hours. Positive = >25 Blood specimen (specimen) BLOOD SPECIMEN / Unknown 04/15/2017 10:03 EDT 04/15/2017 10:45 EDT Christine Michelle CREATIVE PRODUCER CHEMISTRY & BLOOD G ORDERABLES [facility] [address] [place] [address] documented in this encounter Visit Diagnoses Diagnosis Other specified related conditions, first trimester- Primary documented in this encounter Care Teams Anthropology Lecturer Relationship Specialty Start Date End Date Rita Quiroga MD [address] [place] [phone] PCP - General 04/13/17 documented as of this encounter
--- OUTSIDE RECORDS SUMMARY | 2024-08-16 13:45 | XMS_ITS | Encounter Summary ---
Author Organization [facility] Address [address] [place] [address] Care Team Providers Care Staff Psychiatrist Name Role Phone Rita Quiroga MD Primary Care Provider [phone] Encounter Details Date Type Department Care Team (Late Contact Info) Description 04/13/2017 Phlebotomy Only [address] [address] Forklift Material Handler, Outpatient Other specified related conditions, first trimester [...] Preg 267(H) <5 mIU/ml 04/13/2017 11:33 EDT [facility] Comment: Reference Range: Negative = <5 Indeterminate = 5-25 recommend repeat in 48 hours. Positive = >25 Blood specimen (specimen) BLOOD SPECIMEN / Unknown 04/13/2017 9:36 EDT 04/13/2017 10:49 EDT Christine Michelle BARK SPUDDER CHEMISTRY & BLOOD G ORDERABLES [facility] [address] [place] [address] documented in this encounter Visit Diagnoses Diagnosis Other specified related conditions, first trimester- Primary documented in this encounter Care Teams Staff Psychiatrist Relationship Specialty Start Date End Date Rita Quiroga MD [address] [place] [phone] PCP - General 04/13/17 documented as of this encounter
--- OUTSIDE RECORDS SUMMARY | 2024-08-16 13:45 | XMS_ITS | Encounter Summary ---
Author Organization [facility] Address [address] [place] [address] Care Team Providers Care Byproducts Pump Operator Name Role Phone Phyllis Vega MD Primary Care Provider [phone] Reason for Visit * Reason Comments Eye Problem Patient states blue spots in vision. Patient thinks left eye, but not positive. Increased frequency with fatigue, but other times as well. Denies headache, itch, burn, or tearing. Occasional floaters. Encounter Details Date Type Department Care Team (Late st Contact Info) Description 10/30/2011 11:00 EST Office Visit [facility] Ophthalmology - [address] [address] Daljit Dyer MD [address] [facility], Level [address] [place] [address] Social History Tobacco Use Types [...] Applanation Time: 11:45 Wearing Rx Sphere Cylinder [place] Right +0.75 +3.00 095 Left -0.25 +0.25 [...] to call if change. PLAN: Test Performed: [facility] 24-2 Indications for test: photopsias/ocular migraine Results/Findings: WNL Plan: FU prn. documented in this encounter Miscellaneous Notes * Scanned Note-Null - Laser Engraver, Scan - 10/30/2011 1513 EST documented in [...] TI No TI Wearing Rx Sphere Cylinder [place] Right eye +0.75 +3.00 095 Left eye -0.25 +0.25 100 Age: 4yrs Type: Reading Patient states using glasses mainly for reading. Care Teams Byproducts Pump Operator Relationship Specialty Start Date End Date Phyllis Vega MD [address] [place] [phone] PCP - General 03/24/09 04/12/17 documented as of this encounter
--- OUTSIDE RECORDS SUMMARY | 2024-08-16 13:45 | XMS_ITS | Encounter Summary ---
Author Organization [facility] Address [address] [place] [address] Care Team Providers Care Seismology Teacher Name Role Phone Rita Quiroga MD Primary Care Provider [phone] Encounter Details Date Type Department Care Team (Late st Contact Info) Description 04/20/2017 10:33 EDT - 04/20/2017 23:59 EDT Hospital Encounter [address] [address] Jenifer Baker MD 111 [facility], [facility] [address] [place] [address] Discharge Disposition: Home or Self [...] on filedocumented in this encounter Care Teams Seismology Teacher Relationship Specialty Start Date End Date Rita Quiroga MD [address] [place] [phone] PCP - General 04/13/17 documented as of this encounter
--- OUTSIDE RECORDS SUMMARY | 2024-08-16 13:45 | XMS_ITS | Encounter Summary ---
Author Organization [facility] Address [address] [place] [address] Care Team Providers Care Event Sales Manager Name Role Phone Unavailable Primary Care Provider Unavailabl e Encounter Details Date Type Department Care Team (Late st Contact Info) Description 12/14/2008 9:45 [facility] Hospital Encounter [facility] [place] [address] [place] [address] Unknown, Provider, Social History Tobacco Use Types [...]
--- OUTSIDE RECORDS SUMMARY | 2024-08-16 13:45 | XMS_ITS | Encounter Summary ---
Author Organization [facility] Address [address] [place] [address] Care Team Providers Care Waterproofing Supervisor Name Role Phone Phyllis Vega MD Primary Care Provider [phone] Encounter Details Date Type Department Care Team (Late Contact Info) Description 01/26/2014 Phlebotomy Only [address] [address] Child Care, Outpatient Social History Tobacco Use Types Packs/Day [...] on filedocumented in this encounter Care Teams Waterproofing Supervisor Relationship Specialty Start Date End Date Phyllis Vega MD [address] [place] [phone] PCP - General 03/24/09 04/12/17 documented as of this encounter
--- OUTSIDE RECORDS SUMMARY | 2024-08-16 13:45 | XMS_ITS | Encounter Summary ---
Author Organization [facility] Address [address] [place] [address] Care Team Providers Care Generation Engineer Name Role Phone Rita Quiroga MD Primary Care Provider [phone] Reason for Visit * Reason Comments Ectopic seen at [facility], told she might have an ectopic prgnancy. Here with abdominal pain Encounter Details Date Type Department Care Team (Late st Contact Info) Description 04/13/2017 22:03 EDT - 04/14/2017 0:35 EDT Emergency [facility] Emergency Department - Main [place] [address] [place] [address] Vic Lisa MD Emergency, MD Saman Less [...] Notes * Yaneth Floyd RN - 04/13/2017 0724 EDT Pt to [place] via stretcher with [employer]. * Vic Lisa MD - 04/13/2017 5116 EDT DOS: 04/13/2017 Chief Complaint Patient presents [...] by the patient and medical records. No customer leader was used. Review of Systems Review of [...] cm left ovarian cyst, read by resident program specialist. There is a hyperechoic shadowing structure present [...] daily. added in this encounter Care Teams Generation Engineer Relationship Specialty Start Date End Date Rita Quiroga MD [address] [place] [phone] PCP - General 04/13/17 documented as of this encounter
--- OUTSIDE RECORDS SUMMARY | 2024-08-16 13:45 | XMS_ITS | Encounter Summary ---
Author Organization [facility] Address [address] [place] [address] Care Team Providers Care Manager Of Corporate Name Role Phone Phyllis Vega MD Primary Care Provider [phone] Encounter Details Date Type Department Care Team (Latest Contact Info) Description 05/08/2009 9:30 EDT - 05/08/2009 23:59 EDT Hospital Encounter [facility] Mood & Anxiety - [address] [place] [address] Desirae Estrada, [facility] [address] [place] [address] Discharge Disposition: Home or Self [...] in this encounter Care Teams Manager Of Corporate Relationship Specialty Start Date End Date Phyllis Vega MD [address] [place] [phone] PCP - General 03/24/09 04/12/17 documented as of this encounter
--- OUTSIDE RECORDS SUMMARY | 2024-08-16 13:45 | XMS_ITS | Encounter Summary ---
Author Organization [facility] Address [address] [place] [address] Care Team Providers Care Mechanical Engineering Intern Name Role Phone Phyllis Vega MD Primary Care Provider [phone] Encounter Details Date Type Department Care Team ([facility] Contact Info) Description 10/20/2013 12:56 EST - 10/20/2013 23:59 EST Hospital Encounter [facility] - Other [address] [place] [address] Nam [place] MD [address] [facility], Level 1 [place] [address] Discharge Disposition: Home or Self [...] filedocumented in this encounter Care Teams Mechanical Engineering Intern Relationship Specialty Start Date End Date Phyllis Vega MD [address] [place] [phone] PCP - General 03/24/09 04/12/17 documented as of this encounter
--- OUTSIDE RECORDS SUMMARY | 2024-08-16 13:45 | XMS_ITS | Encounter Summary ---
Author Organization [facility] Address [address] [place] [address] Care Team Providers Care Manager Filter Name Role Phone Rita Quiroga MD Primary Care Provider [phone] Encounter Details Date Type Department Care Team (Late st Contact Info) Description 04/16/2017 9:40 EDT Initial consult [facility] OBGYN Services - [address] [id number] Jenifer Baker MD [address] [place] [address], [address] [place] [address] Aracely Zuleta MD Tubal without [...] Notes * Jenifer Baker MD - 04/16/2017 0909 EDT CC: [facility] [...] MD * Leni Delgado RN - 04/16/2017 0934 EDT I. Patient here for Methotrexate Injection [...] limitations and signs/symptoms to watch for. Provided MOLD CLOSER HELPER triage and on-call numbers, aware to call with any problems, issues or additional questions. Roxanne verbalized understand and agreement to this plan. She has no other questions at this time. documented in this encounter Procedure Notes * Jenifer Baker MD - 04/16/2017 0951 EDT Procedure: Procedures Procedure Note: IUD Arm [...] 2016 documented in this encounter Care Teams Manager Filter Relationship Specialty Start Date End Date Rita Quiroga MD [address] [place] [phone] PCP - General 04/13/17 documented as of this encounter
--- OUTSIDE RECORDS SUMMARY | 2024-08-16 13:45 | XMS_ITS | Encounter Summary ---
Author Organization [facility] Address [address] [place] [address] Care Team Providers Care Missile And Missile Checkout Technician Name Role Phone Phyllis Vega MD Primary Care Provider [phone] Encounter Details Date Type Department Care Team (Late Contact Info) Description 2009 Office Visit [facility] [place] [address] [place] [address] Student, T System MedMD Social History Tobacco Use Types Packs/Day Years Used Date Smoking Tobacco: Never Assessed Sex and Gender Information Value Date Recorded Sex Assigned at Not on file Gender Identity Not on file Sexual Orientation Not on file documented as of this encounter Progress Notes * Eliel, Conv Resident Care Manager Rn - 03/10/2010 5213 EDT Care Center - Physician Summary Registration [...] Follow-up: ROXY LANE MD, Psych, , FA, [address] [place] [address], [facility]. Follow up in about one week. Call for an appointment. (Electronically signed by Laura Flores, 2009 15:27) Care Center - Nursing Summary Registration Date/Time: 2009 10:57 TRIAGE Initial Assessment O2 saturation: 100% room air. --1131 Raymika Flannery, R.N. (Pt in NAD. Able to speak in full sentances.). --1131 Ray Levton, R.N. BP: 130 / 60 sitting R arm manual. HR: 58 regular. RR: 16 regular (unlabored). Temp: 99 (temporal).--1141 Raymika Flannery, R.N.. Medications (nuvo-ring BCP). Prilosec: 10 mg daily. --1141 Raymika Oharaton, R.N.. Allergies No known drug allergies. --1141 Ray Mayankimpton, R.N.. History Chief Complaint: SHORTNESS OF BREATH and (anxiety). This is a recurrent problem (3 weeks ago). Pain level now: 0/10. The patient has had a mild cough. (Feelslike she can't take a deep enough breath). Treatment FRAME CATCHER: None. PAST HX: Immunizations: up-to-date. Last normal [...] nurse per protocol and sent to lab: [facility]. --1440 Luis Alberto Flannery R.N.. DISPOSITION / DISCHARGE Condition at departure: unchanged. Patient reports pain level on departure as 0/10. No learning barriers present. Discharge instructions reviewed with the patient. Reviewed medication side effects, precautions, dosing and course; prescription (s) given to the patient. Patient verbalized understanding. Written instructions provided in Mongolian. The patient was discharged home. The patient left the Emergency Department ambulatory and via private vehicle. Patient driving. --1525 Luis Alberto Flannery R.N.. Locked/Released at 2009 15:25 by Luis Alberto Flannery R.N. documented in this encounter Plan of Treatment Not on file documented as of this encounter Visit Diagnoses Not on filedocumented in this encounter Care Teams Missile And Missile Checkout Technician Relationship Specialty Start Date End Date Phyllis Vega MD [address] [place] [phone] PCP - General 03/24/09 04/12/17 documented as of this encounter
--- OUTSIDE RECORDS SUMMARY | 2024-08-16 13:45 | XMS_ITS | Encounter Summary ---
Author Organization [facility] Address [address] [place] [address] Care Team Providers Care Edger Automatic Name Role Phone Phyllis Vega MD Primary Care Provider [phone] Encounter Details Date Type Department Care Team (Late st Contact Info) Description 04/12/2017 Orders Only Non [facility] Ancillary Services Christine Michelle, AUDIO DIRECTOR [address] [place] [address] Other specified related conditions, first [...] Preg 267(H) <5 mIU/ml 04/13/2017 11:33 EDT [facility] Comment: Reference Range: Negative = <5 Indeterminate = 5-25 recommend repeat in 48 hours. Positive = >25 Blood specimen (specimen) BLOOD SPECIMEN / Unknown 04/13/2017 9:36 EDT 04/13/2017 10:49 EDT Christine Michelle AUDIO DIRECTOR CHEMISTRY & BLOOD G ORDERABLES [facility] [address] [place] [address] documented in this encounter Visit Diagnoses Diagnosis Other specified related conditions, first trimester- Primary documented in this encounter Orders Lab Orders Without Results Count Last Ordered D ate First Ordered Date HCG FOR 1 04/12/2017 documented in this encounter Care Teams Edger Automatic Relationship Specialty Start Date End Date Phyllis Vega MD [address] [place] [phone] PCP - General 03/24/09 04/12/17 documented as of this encounter
--- OUTSIDE RECORDS SUMMARY | 2024-08-16 13:45 | XMS_ITS | Encounter Summary ---
Author Organization [facility] Address [address] [place] [address] Care Team Providers Care Police Commanding Officer Name Role Phone Phyllis Vega MD Primary Care Provider [phone] Reason for Visit * Reason Onset Date Comments Provider Referred 07/08/2016 Encounter Details Date Type Department Care Team (Late st Contact Info) Description 07/08/2016 Telephone [facility] Dermatology [address] [address] Dee Steen MD [address] [place] [address], [address] [place] [address] Provider Referred Social History Tobacco [...] Desires full skin exam NPV 04/17/17 0815 nAa Hale PA-C Referring office informed Notes in triage folder Elsi Maher RN * Telephone Encounter - David Edwards - 07/08/2016 1604 EDT Notes received from Rita Quiroga MD referring patient for a non healing lesion on nose. Please call patient to schedule. documented in this encounter Plan of Treatment Not on file documented as of this encounter Visit Diagnoses Not on filedocumented in this encounter Care Teams Police Commanding Officer Relationship Specialty Start Date End Date Phyllis Vega MD [address] [place] [phone] PCP - General 03/24/09 04/12/17 documented as of this encounter
--- OUTSIDE RECORDS SUMMARY | 2024-08-16 13:45 | XMS_ITS | Encounter Summary ---
Author Organization [facility] Address [address] [place] [address] Care Team Providers Care Search Engine Marketing Specialist Name Role Phone Phyllis Vega MD Primary Care Provider [phone] Encounter Details Date Type Department Care Team ([facility] Contact Info) Description 01/20/2012 20:51 EST - 01/20/2012 23:59 EST Hospital Encounter [facility] [address] [place] [address] Daljit Dyer MD [address] [facility], [address] [place] [address] Discharge Disposition: Home or Self [...] on filedocumented in this encounter Care Teams Search Engine Marketing Specialist Relationship Specialty Start Date End Date Phyllis Vega MD [address] [place] [place] [phone] PCP - General 03/24/09 04/12/17 documented as of this encounter
--- OUTSIDE RECORDS SUMMARY | 2024-08-16 13:45 | XMS_ITS | Encounter Summary ---
Author Organization [facility] Address [address] [place] [address] Care Team Providers Care Resolution Rep Name Role Phone Phyllis Vega MD Primary Care Provider [phone] Encounter Details Date Type Department Care Team ([facility] Contact Info) Description 09/21/2010 Results Only [facility] [phone] Aracely Palma MD [address] [place] [phone] Social History Tobacco Use Types Packs/Day [...] JA, ROXANNE V ? Accession #: ? [id number] ? : ? 1990 (Age: 20) ??F [...] MD PATHOLOGY ORDERABL ES Performing Organization Address City/State/[facility] Co de Phone Number [facility] [address] [place] [address] documented in this encounter Visit Diagnoses Not on filedocumented in this encounter Care Teams Resolution Rep Relationship Specialty Start Date End Date Phyllis Vega MD [address] [place] [phone] PCP - General 03/24/09 04/12/17 documented as of this encounter
--- OUTSIDE RECORDS SUMMARY | 2024-08-16 13:45 | XMS_ITS | Encounter Summary ---
Author Organization [facility] Address [address] [place] [address] Care Team Providers Care Risk And Insurance Consultant Name Role Phone Phyllis Vega MD Primary Care Provider [phone] Encounter Details Date Type Department Care Team (Latest Contact Info) Description 01/26/2014 8:21 EST - 01/26/2014 23:[address] [facility] [address] [place] [address] Rita Quiroga MD [address] [place] [phone] Discharge Disposition: Auto Discharge Social History [...] S ORDERABLES [facility] [address] [place] [address] * LIPID PROFILE (INCLUDES CHOLESTEROL, TRIGLYCERIDES, HDL, LDL) (01/26/2014 8:40 EST) Cholesterol 183 mg/dl [facility] Comment: Icteric Icterus is not a quantitative measurement of bilirubin. Desirable:<200 Borderline High:200-239 High:>lu=336 Triglycerides 46 mg/dl [facility] Comment: Icteric Icterus is not a quantitative measurement of bilirubin. Normal:<150 Borderline High:150-199 High:200-499 Very High:>bg=267 HDL 59 mg/dl [facility] Comment: Icteric Icterus is not a quantitative measurement of bilirubin. Low:<40 Normal:40-60 Desirable: >60 LDL, Calculated 115 mg/dl [facility] Comment: Optimal:<100 Near Optimal:100-129 Borderline High:130-159 High:160-189 Very High:>nr=170 Chol/HDL Ratio 3.1 [facility] Fasting? YES [facility] Non HDL Cholesterol 124 mg/dl [facility] Comment: Icteric Icterus is not a quantitative measurement of bilirubin. Desirable:<130 Borderline:130-159 High: 160-189 Very High: >ot=991 01/26/2014 8:40 EST 01/26/2014 10:14 EST Rita Quiroga MD CHEMISTRY & BLOOD GA S ORDERABLES [facility] [address] [place] [address] * BASIC METABOLIC PANEL (01/26/2014 8:40 EST) [...] BLOOD GA S ORDERABLES Performing Organization Address City/State/[facility] Co de Phone Number JULIO C [facility] [address] [place] [address] documented in this encounter Visit Diagnoses Not on filedocumented in this encounter Care Teams Risk And Insurance Consultant Relationship Specialty Start Date End Date Phyllis Vega MD [address] [place] [phone] PCP - General 03/24/09 04/12/17 documented as of this encounter
--- OUTSIDE RECORDS SUMMARY | 2024-08-16 13:45 | XMS_ITS | Encounter Summary ---
Author Organization [facility] Address [address] [place] [address] Care Team Providers Care Emergency Planner Name Role Phone Rita Quiroga MD Primary Care Provider [phone] Reason for Visit * Reason Onset Date Comments Labs Only 04/17/2017 Encounter Details Date Type Department Care Team ([facility] Contact Info) Description 04/17/2017 Orders Only [facility] OBGYN Services - [address] [address] Leni Delgado RN Tubal without intrauterine (Primary [...] Notes * Leni Delgado, SANDRO - 04/17/2017 0961 EDT Ordered placed for day 4 beta hcg, due Friday04/20/17. documented in this encounter Plan of Treatment Not on file documented as of this encounter Results * (ABNORMAL) HCG FOR (04/20/2017 10:43 EDT) Quant Beta HCG, Preg 63(H) <5 mIU/ml 04/20/2017 13:22 EDT [facility] Comment: Reference Range: Negative = <5 Indeterminate = 5-25 recommend repeat in 48 hours. Positive = >25 Blood specimen (specimen) BLOOD SPECIMEN / Unknown 04/20/2017 10:43 EDT 04/20/2017 12:32 EDT Jenifer Baker MD CHEMISTRY & BLOO D GAS ORDERABLES Performing Organization Address City/State/[facility] Co de Phone Number [facility] [address] [place] [address] documented in this encounter Visit Diagnoses Diagnosis Tubal without intrauterine - Primary documented in this encounter Care Teams Emergency Planner Relationship Specialty Start Date End Date Rita Quiroga MD [address] [place] [phone] PCP - General 04/13/17 documented as of this encounter
--- OUTSIDE RECORDS SUMMARY | 2024-08-16 13:45 | XMS_ITS | Encounter Summary ---
Author Organization [facility] Address [address] [place] [address] Care Team Providers Care Soccer Player Name Role Phone Phyllis Vega MD Primary Care Provider [phone] Encounter Details Date Type Department Care Team ([facility] Contact Info) Description 12/30/2011 Phlebotomy Only [address] [address] Continuous Washer Operator, Outpatient Ocular migraine; Headache; Photopsia Social History [...] & BLOOD G ORDERABLES Performing Organization Address [facility] Co de Phone Number JULIO C [facility] [address] [place] [address] * BUN (12/30/2011 13:42 EST) BUN 13 10 - 26 mg/dl [facility] Blood specimen (specimen) 12/30/2011 13:42 EST 12/30/2011 14:26 EST Daljit Dyer MD CHEMISTRY & BLOOD G ORDERABLES Performing Organization Address [facility] de Phone Number [facility] C [facility] [address] [place] [address] documented in this encounter Visit Diagnoses Diagnosis Ocular migraine Variants of migraine, not elsewhere classified, without mention of intractable migraine without mention of status migrainosus Headache(784.0) Headache Photopsia Other visual distortions and entoptic phenomena documented in this encounter Care Teams Soccer Player Relationship Specialty Start Date End Date Phyllis Vega MD [address] [place] [phone] PCP - General 03/24/09 04/12/17 documented as of this encounter
--- OUTSIDE RECORDS SUMMARY | 2024-08-16 13:45 | XMS_ITS | Encounter Summary ---
Author Organization [facility] Address [address] [place] [address] Care Team Providers Care Calculus Teacher Name Role Phone Phyllis Vega MD Primary Care Provider [phone] Encounter Details Date Type Department Care Team (Latest Contact Info) Description 08/11/2015 8:09 EDT - 08/11/2015 23:59 EDT Hospital Encounter [address] [address] Unknown, Provider, Discharge Disposition: Home or Self [...] Code Departure Means Destination Home or Self Fdc documented in this encounter Plan of Treatment Not on file documented as of this encounter Visit Diagnoses Not on filedocumented in this encounter Care Teams Calculus Teacher Relationship Specialty Start Date End Date Phyllis Vega MD [address] [place] [phone] PCP - General 03/24/09 04/12/17 documented as of this encounter
--- OUTSIDE RECORDS SUMMARY | 2024-08-16 13:45 | XMS_ITS | Encounter Summary ---
Author Organization [facility] Address [address] [place] [address] Care Team Providers Care Activities Counselor Name Role Phone Phyllis Vega MD Primary Care Provider Reason for Visit * Reason Comments Eye Flashes And/Or Floaters Increase in Floater, both eyes (blue spots). Worse if Pt is stressed out. Stopped Celexa last summer. No flashes or eyepain. Vision stable, no changes. Encounter Details Date Type Department Care Team (Late st Contact Info) Description 12/24/2011 8:00 EST Office Visit [facility] Ophthalmology - [address] [address] Daljit Dyer MD [address] [place] [address], [address] [place] [address] Social History Tobacco Use Types [...] Notes * Daljit Dyer MD - 12/24/2011 504 EST DIVISION [facility]THALMOLOGY [facility] December 24, 2011 Phyllis Vega MD [address] [phone] Vega: Roxanne Beltran was reexamined [...] the MRI scan. Sincerely, Electronically Signed by Dlajit Dyer MD 01/05/2012 20:00 Aj Romero MD - Daljit Dyer MD - Job ID: Doc ID: [id number] [facility] Doc ID: [id number] cc: Phyllis Vega MD * Daljit Dyer MD - 12/24/2011 0951 EST This note has been dictated and [...] Applanation Time: 9:02 Wearing Rx Sphere Cylinder [place] Right +0.75 +3.00 095 Left -0.25 +0.25 100 Type: Reading Wearing Rx #2 Sphere Cylinder [place] Right +1.25 +2.50 91 Left -0.25 +0.25 [...] encounter Miscellaneous Notes * Scanned Note-Null - Windows Application Administrator, Scan - 12/25/2011 0954 EST documented in [...] & BLOOD G ORDERABLES Performing Organization Address [facility] Co de Phone Number [facility] C [facility] [address] [place] [address] * BUN (12/30/2011 13:42 EST) BUN 13 10 - 26 mg/dl [facility] Blood specimen (specimen) 12/30/2011 13:42 EST 12/30/2011 14:26 EST Daljit Dyer MD CHEMISTRY & BLOOD G ORDERABLES Performing Organization Address [facility] Co de Phone Number [facility] [address] [place] [address] documented in this encounter Visit Diagnoses Diagnosis [...] syne resis Wearing Rx #1 Sphere Cylinder [place] Right eye +0.75 +3.00 095 Left eye -0.25 +0.25 100 Type: Reading Wearing Rx #2 Sphere Cylinder [place] Right eye +1.25 +2.50 91 Left eye -0.25 +0.25 96 Type: SVL Manifest Refraction Sphere Cylinder Right eye -0.25 clearer Left eye -0.25 clearer Care Teams Activities Counselor Relationship Specialty Start Date End Date Phyllis Vega MD [address] [place] [phone] PCP - General 03/24/09 04/12/17 documented as of this encounter
--- OUTSIDE RECORDS SUMMARY | 2024-08-16 13:46 | XMS_ITS | Encounter Summary ---
Author Organization [facility] Address [address] [place] [address] Care Team Providers Care Patternmaker Metal Bench Name Role Phone Unavailable Primary Care Provider Unavailabl e Encounter Details Date Type Department Care Team (Latest Contact Info) Description 10/10/2008 10:20 EST - 10/10/2008 11:59 EST Hospital Encounter [facility] [address] [place] [address] Angela Eubanks MD [address] [place] [phone] Discharge Disposition: Auto Discharge Social History [...] AND SONDRA ESTEBAN ORDERABLES Performing Organization Address City/State/[facility] Co de Phone Number [facility] C [facility] [address] [place] [address] * ENDOMYSIAL ANTIBODY, SERUM (10/10/2008 12:13 EST) Endomysial Antibodies Negative Reference range: Negative Analyte Specific Reagent ? This test was developed and its performance characteristics ? determined by [facility], [facility]. This test has not been cleared or ? approved by the U.S. Food and Drug Administration. ? Performed or Referred by: [facility] Dpt of Lab Med and Path, [address] [place] [address], Lab Dir: Doroteo Viveros III, ? MD ? [facility] 10/10/2008 12:1 3 EST 10/10/2008 12:20 EST Angela Eubanks MD IMMUNOLOGY AND SONDRA GARCIAABLES Performing Organization Address City/State/[facility] Co de Phone Number [facility] [address] [place] [address] * CERULOPLASMIN (10/10/2008 12:13 EST) Cerulplasmin 25.7Reference range: 14.0 to 47.8 Unit: mg/dL Please note change in methodology and reference ? values effective 08/23/2008. ? Performed or Referred by: [facility] Dpt of Lab Med and Path, [address] ? [place] [address], Lab Dir: Doroteo Viveros III, ? MD ? [facility] 10/10/2008 12:1 3 EST 10/10/2008 12:20 EST Angela Eubanks MD CHEMISTRY & BLOOD GA S ORDERABLES Performing Organization Address [facility] de Phone Number [facility] C [facility] [address] [place] [address] * ANTI NUCLEAR ANTIBODY (10/10/2008 12:13 EST) Anti Nuclear Ab <40 0 - 40 Dils [facility] 10/10/2008 12:1 3 EST 10/10/2008 12:20 EST Angela Eubanks MD IMMUNOLOGY AND SEROL OGY ORDERABLES Performing Organization Address [facility] de Phone Number [facility] C [facility] [address] [place] [address] * CK (10/10/2008 12:13 EST) CK 74 30 - 135 U/L [facility] 10/10/2008 12:1 3 EST 10/10/2008 12:20 EST Angela Eubanks MD CHEMISTRY & BLOOD GA S ORDERABLES Performing Organization Address [facility] de Phone Number [facility] [address] [place] [address] * (ABNORMAL) LIVER FUNCTION TESTS (10/10/2008 12:13 [...] EST Angela Eubanks MD CHEMISTRY & BLOOD RI S ORDERABLES Performing Organization Address [facility] de Phone Number [facility] [address] [place] [address] * LIPID PROFILE (10/10/2008 12:13 EST) Pathologist [facility] Cholesterol 145 mg/dl [facility] Comment: Desirable:<200 Borderline High:200-239 High:>ya=565 Triglycerides 60 35 - 160 mg/dl [facility] HDL 40 mg/dl [facility] Comment: Low:<40 High(Desirable):>or=60 LDL, Calculated 93 mg/dl [facility] Comment: Optimal:<100 Above optimal:100-129 Borderline High:130-159 High:160-189 Very High:>gh=123 Chol/HDL [facility] 3.6 [facility] Fasting? Yes [facility] 10/10/2008 12:1 3 EST 10/10/2008 12:20 EST Angela Eubanks MD CHEMISTRY & BLOOD RI S ORDERABLES Performing Organization Address [facility] Phone Number [facility] [address] [place] [address] * RAD US ABDOMEN ONE ORGAN/QUADRANT (10/10/2008 [...]
[2024-08-16 14:04] LABS: HCG Quant, Pregnancy 339 mIU/mL (1-3)
== END 2024-08-16 13:31 | disposition home or self-care (01) ==
LOC: LBO 13:30
PROVIDERS: PCP Family Medicine; Visit Provider Obstetrics & Gynecology
DX: O26.859 Spotting complicating pregnancy, unspecified trimester (principal); Z32.01 Encounter for pregnancy test, result positive
CPT/HCPCS: 36415; 84702

== ENCOUNTER 2024-08-18 02:56 | Outpatient (CLI) | payer BC, SELFPAY ==
[2024-08-18 13:16] LABS: HCG Quant, Pregnancy 905 mIU/mL (1-3)
== END 2024-08-18 02:57 | disposition home or self-care (01) ==
LOC: LBO 02:56
PROVIDERS: PCP Family Medicine; Visit Provider Obstetrics & Gynecology
DX: O26.859 Spotting complicating pregnancy, unspecified trimester (principal); Z32.01 Encounter for pregnancy test, result positive
CPT/HCPCS: 36415; 84702

== ENCOUNTER 2024-10-13 11:03 | Outpatient (REF) | payer BC, SELFPAY ==
[2024-10-14 12:22] LABS: Chlamydia Result Negative (Negative); GC Result Negative (Negative)
== END 2024-10-13 11:04 | disposition home or self-care (01) ==
LOC: LBN 11:03
PROVIDERS: PCP Family Medicine; Visit Provider Advanced Practice Midwife
DX: O09.521 Supervision of elderly multigravida, first trimester (principal); Z3A.12 12 weeks gestation of pregnancy
CPT/HCPCS: 87491; 87591; 87086

== ENCOUNTER 2024-10-14 01:57 | Outpatient (CLI) | payer BC, SELFPAY ==
[2024-10-14 15:11] LABS: Panorama Kit Sent via Fed Ex
[2024-10-14 17:05] LABS: TSH (W/Ref FT4) 4.59 uIU/mL (0.36-3.74)
[2024-10-14 17:40] LABS: FREE T4 0.86 ng/dL (0.76-1.46)
[2024-10-14 22:40] LABS: Hepatitis B Surface Ag Negative (Negative)
[2024-10-14 23:04] LABS: Hepatitis C Ab w Rflx HCV PCR Negative (Negative)
[2024-10-14 23:10] LABS: HIV-1/2 Ag & Ab Screen Negative (Negative)
[2024-10-15 12:13] LABS: Rubella IgG Ab (UVM) Positive (See Note); Varicella IgG Antibody Positive (See Note)
[2024-10-17 14:27] LABS: Syphilis IgG w/Reflex Nonreactive (Nonreactive)
== END 2024-10-14 01:58 | disposition home or self-care (01) ==
LOC: LBO 01:57
PROVIDERS: PCP Family Medicine; Visit Provider Advanced Practice Midwife
DX: Z34.91 Encounter for supervision of normal pregnancy, unspecified, first trimester (principal); Z3A.12 12 weeks gestation of pregnancy
CPT/HCPCS: 36415; 81220; 81222; 81329; 86787; 86803; 86850; 86900; 86901; 87340; 87389; 84439; 84443; 85025; 86762; 86780

== ENCOUNTER 2024-10-15 02:05 | Outpatient (CLI) | payer BC, SELFPAY ==
--- OUTSIDE RECORDS SUMMARY | 2024-10-15 02:07 | XMS_ITS | Encounter Summary ---
Author Organization [facility] Address [address] [place] [address] Care Team Providers Care Hand Clerical Verifier Name Role Phone Rita Quiroga MD Primary Care Provider [phone] Reason for Visit * Reason Comments Contraception Encounter Details Date Type Department Care Team ([facility] Contact Info) Description 12/11/2017 15:00 EST Office Visit [facility] OBGYN Services - [address] [phone] Jenifer Baker MD [address] [place] [address], [facility] [address] [place] [address] General counseling and advice for contraceptive management (Primary Dx); Nexplanon removal; Encounter for IUD insertion Discharge Disposition: Auto Discharge Social History Tobacco Use Types Packs/Day Years Used Date Smoking Tobacco: Never Smokeless Tobacco: Never Alcohol Use Standard Drinks/Week Comments Yes 0 (1 standard drink = 0.6 oz pur e alcohol) 5 to 5 per week Comments No Sex and Gender Information Value Date Recorded Sex Assigned at Not on file Legal Sex Female 18:44 EST Gender Identity Not on file Sexual Orientation Not on file Occupation Industry Job Start Date Job End Date Not on file Not on file Not on file Not on file documented as of this [...] in this encounter Ordered Prescriptions Prescription Sig Dispense Quantity Refills Last Filled Start Date End Date levonorgestrel (MIRENA) 20 mcg/24 hr (5 years) IUD 1 Each by intrauterine route once. 1 Each 12/11/2017 3 documented in this encounter Discharge Disposition Disposition Code Departure Means Destination Auto Discharge documented in this encounter Progress Notes * Laura Davis MD - 12/11/2017 1500 EST counseling services director Note Chief Complaint: desires contraceptive counseling Subjective: [...] or tenderness Extremities: warm, well-perfused, non-tender Exam tank shop supervisor: Dr. Baker Assessment/Plan: Roxanne Beltran is a [...] separate procedure note. Laura Davis MD PGY-3 [facility] Obstetrics and Gynecology Pager: [phone] Attestation statement: I saw and examined the [...] 7cm. Mirena IUD was placed according to tester semiconductor packages's instructions. Tenaculum was removed and excellent hemostasis was noted. The IUD strings were trimmed to 4cm. The speculum was then removed. Date of insertion: 12/11/2017 IUD Lot #: [id number] Nexplanon was palpated in the LUE. The [...] throughout the procedures. Laura Davis MD PGY-3 [facility] Obstetrics and Gynecology Pager: [phone] documented in this encounter Plan of Treatment [...] may reflect changes made after this encounter. LORATADINE (CLARITIN ORAL) Take by mouth. added in this encounter Care Teams Hand Clerical Verifier Relationship Specialty Start Date End Date Rita Quiroga MD [address] [place] [phone] PCP - General 04/13/17 documented as of this encounter
--- OUTSIDE RECORDS SUMMARY | 2024-10-15 02:07 | XMS_ITS | Encounter Summary ---
Author Organization [facility] Address [address] [place] [address] Care Team Providers Care Dean Name Role Phone Rita Quiroga MD Primary Care Provider [phone] Encounter Details Date Type Department Care Team (Late st Contact Info) Description 03/15/2022 Lab Requisition [facility] Pathology & Laboratory Medicine - [address] [address] Outr Resulting Lab, Provider Social History Tobacco Use Types Packs/Day Years Used Date Smoking Tobacco: Never Smokeless Tobacco: Never Alcohol Use Standard Drinks/Week Comments Yes 0 (1 standard drink = 0.6 oz pur e alcohol) 5 to 5 per week Interpersonal Safety Answer Date Record ed Physically Hurt Never 07/02/2020 Verbally Threaten Not on file 07/02/2020 Comments No Sex and Gender Information Value [...] Priority Date/Time Associated Diagnosis Comments ZZCOVID-19 TEST [facility] PCR Today 03/14/2022 13:20 EDT COVID-19 TESTING Routine 03/14/2022 13:2 0 EDT documented in this encounter Results * COVID-19 TEST [facility] PCR (03/14/2022 13:20 EDT) Swab 03/14/2022 13:2 0 EDT 03/15/2022 16:23 EDT us Provider Outr Resulting Lab MICROBIOLOGY - GENER AL ORDERABLES Final Result [facility] [address] [place] [address] * COVID-19 TESTING (03/14/2022 13:20 EDT) COVID-19 rt-PCR Result Negative Negative 03/16/2022 10:37 EDT [facility] Comment: This test has [...] performed using the james SARS-CoV-2 assay ([employer] on the James 6800 System Performing Lab James 6800 [facility] 03/16/2022 10:37 EDT [facility] Swab 03/14/2022 13:2 0 EDT 03/15/2022 16:23 EDT us Provider Outr Resulting Lab MICROBIOLOGY - GENER AL ORDERABLES Final Result [facility] [address] [place] [address] documented in this encounter Visit Diagnoses Not on filedocumented in this encounter Care Teams Dean Relationship Specialty Start Date End Date Rita Quiroga MD [address] [place] [phone] PCP - General 04/13/17 documented as of this encounter
--- OUTSIDE RECORDS SUMMARY | 2024-10-15 02:07 | XMS_ITS | Encounter Summary ---
Author Organization [facility] Address [address] [place] [address] Care Team Providers Care Software Specialist Name Role Phone Rita Quiroga MD Primary Care Provider [phone] Encounter Details Date Type Department Care Team (Late st Contact Info) Description 04/23/2017 11:08 EDT - 04/23/2017 23:59 EDT Hospital Encounter [facility] [address] [place] [address] Jenifer Baker MD [address] [facility], [facility] 4 [place] [address] Discharge Disposition: Auto Discharge Social [...] this encounter Medications at Time of Discharge escitalopram oxalate (LEXAPRO) 10 mg tablet Take [...] on filedocumented in this encounter Care Teams Software Specialist Relationship Specialty Start Date End Date Rita Quiroga MD [address] [place] [phone] PCP - General 04/13/17 documented as of this encounter
--- OUTSIDE RECORDS SUMMARY | 2024-10-15 02:07 | XMS_ITS | Encounter Summary ---
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, which is where 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 [...] management documented in this encounter Care Teams Peg Driver Relationship Specialty Start Date End Date Rita Quiroga MD [address] [place] [phone] PCP - General 04/13/17 documented as of this encounter
--- OUTSIDE RECORDS SUMMARY | 2024-10-15 02:07 | XMS_ITS | Encounter Summary ---
Author Organization [facility] Address [address] [place] [address] Care Team Providers Care Almond Roaster Name Role Phone Rita Quiroga MD Primary Care Provider [phone] Encounter Details Date Type Department Care Team (Late st Contact Info) Description 10/14/2024 Lab Requisition [facility] Pathology & Laboratory Medicine - [address] [address] Outr Resulting Lab, Provider Social History Tobacco [...] 1/2 ANTIGEN AND ANTIBODY, 4TH GENERATION Routine 10/14/2024 15:00 EST documented in this encounter Results * HIV 1/2 ANTIGEN AND ANTIBODY, 4TH GENERATION (10/14/2024 15:00 EST) HIV 1 and 2 Antibody/p24 Antigen, 4th Generation Negative Negative 10/14/2024 23:05 EST [facility] Comment:If acute HIV-1 infec tion is suspected in a high risk patient, submit plasma specimen for HIV-1 RNA quantitation test. Blood VENOUS BLOOD / Unknown 10/14/2024 15:00 EST 10/14/2024 21:16 EST Narrative [facility] - 10/14/2024 23:05 EST Fourth Generation assay performed on the Siemens Centaur XPT. us Provider Outr Resulting Lab IMMUNOLOGY AND SEROL OGY ORDERABLES Final Result [facility] [address] [place] [address] documented in this encounter Visit Diagnoses Not on filedocumented in this encounter Care Teams Almond Roaster Relationship Specialty Start Date End Date Rita Quiroga MD [address] [place] [phone] PCP - General 04/13/17 documented as of this encounter
--- OUTSIDE RECORDS SUMMARY | 2024-10-15 02:07 | XMS_ITS | Encounter Summary ---
Author Organization [facility] Address [address] [place] [address] Care Team Providers Care Lacer And Tier Name Role Phone Rita Quiroga MD Primary Care Provider [phone] Reason for Visit * Reason Onset Date Comments Appointment Related 04/30/2017 Encounter Details Date Type Department Care Team (Late st Contact Info) Description 04/30/2017 Telephone [facility] Dermatology 3rd Floor [address] [address] Desirae Desai MD [address] [place] [address] Appointment Related Social History Tobacco Use [...] on filedocumented in this encounter Care Teams Lacer And Tier Relationship Specialty Start Date End Date Rita Quiroga MD [address] [place] [phone] PCP - General 04/13/17 documented as of this encounter
--- OUTSIDE RECORDS SUMMARY | 2024-10-15 02:07 | XMS_ITS | Encounter Summary ---
Author Organization [facility] Address [address] [place] [address] Care Team Providers Care Provider Relations Coordinator Name Role Phone Rita Quiroga MD Primary Care Provider [phone] Reason for Visit * Reason Comments Laser Treatment spider angioma Encounter Details Date Type Department Care Team (Late st Contact Info) Description 06/11/2017 16:00 EDT Office Visit [facility] Dermatology 3rd Floor [facility] [address] [place] [address] Desirae Desai MD [address] [place] [phone] Spider angioma (Primary Dx) Social History Tobacco [...] PULSED DYE LASER OPERATIVE REPORT Laser ID# [id number] PATIENT INFORMATION: Roxanne Beltran : MRN: [id number] SURGEON: Desirae Desai MD BUCKRAM SEWER: none The risks and benefits of treatment [...] non-neoplastic documented in this encounter Care Teams Provider Relations Coordinator Relationship Specialty Start Date End Date Rita Quiroga MD [address] [place] [phone] PCP - General 04/13/17 documented as of this encounter
--- OUTSIDE RECORDS SUMMARY | 2024-10-15 02:07 | XMS_ITS | Encounter Summary ---
Author Organization [facility] Address [address] [place] [address] Care Team Providers Care Tire Stripper Name Role Phone Rita Quiroga MD Primary Care Provider [phone] Reason for Visit * Reason Onset Date Comments Ectopic 04/23/2017 Encounter Details Date Type Department Care Team ([facility] Contact Info) Description 04/23/2017 Telephone [facility] OBGYN Services - [address] [address] Leni Delgado RN Ectopic Social History Tobacco [...] Telephone Encounter - Leni Delgado RN - 04/23/2017 1645 EDT Component Latest Ref Rng & Units [...] for BCT with Dr. Baker 05/05/17. Aware BEAR KEEPER will call with her hcg next week, once available. Roxanne is agreeable to this plan and verbalized understanding. documented in this encounter Plan of Treatment Not on file documented as of this encounter Results * HCG FOR (04/30/2017 12:41 EDT) Quant Beta HCG, Preg <5 <5 mIU/ml 04/30/2017 14:14 EDT [facility] Comment: Reference Range: Negative = <5 Indeterminate = 5-25 recommend repeat in 48 hours. Positive = >25 Blood specimen (specimen) BLOOD SPECIMEN / Unknown 04/30/2017 12:41 EDT 04/30/2017 12:55 EDT us Jenifer Baker MD CHEMISTRY & BLOOD GAS OR DERABLES Final Result [facility] [address] [place] [address] documented in this encounter Visit Diagnoses Diagnosis Tubal without intrauterine - Primary documented in this encounter Care Teams Tire Stripper Relationship Specialty Start Date End Date Rita Quiroga MD [address] [place] [phone] PCP - General 04/13/17 documented as of this encounter
--- OUTSIDE RECORDS SUMMARY | 2024-10-15 02:07 | XMS_ITS | Encounter Summary ---
Author Organization [facility] Address [address] [place] [address] Care Team Providers Care Supervisory Geographer Name Role Phone Rita Quiroga MD Primary Care Provider [phone] Encounter Details Date Type Department Care Team (Late Contact Info) Description 04/30/2017 Phlebotomy Only [address] [address] Scratch Finisher, Outpatient Tubal without intrauterine (Primary Dx) Social [...] Preg <5 <5 mIU/ml 04/30/2017 14:14 EDT [facility] Comment: Reference Range: Negative = <5 Indeterminate = 5-25 recommend repeat in 48 hours. Positive = >25 Blood specimen (specimen) BLOOD SPECIMEN / Unknown 04/30/2017 12:41 EDT 04/30/2017 12:55 EDT us Jenifer Baker MD CHEMISTRY & BLOOD GAS OR DERABLES Final Result [facility] [address] [place] [address] documented in this encounter Visit Diagnoses Diagnosis Tubal without intrauterine - Primary documented in this encounter Care Teams Supervisory Geographer Relationship Specialty Start Date End Date Rita Quiroga MD [address] [place] [phone] PCP - General 04/13/17 documented as of this encounter
--- OUTSIDE RECORDS SUMMARY | 2024-10-15 02:07 | XMS_ITS | Encounter Summary ---
Author Organization [facility] Address [address] [place] [address] Care Team Providers Care Pneumatic Tube Repairer Name Role Phone Rita Quiroga MD Primary Care Provider [phone] Reason for Visit * Reason Onset Date Comments Appointment Related 12/09/2017 Encounter Details Date Type Department Care Team ([facility] Contact Info) Description 12/09/2017 Telephone [facility] OBGYN Services - [address] [address] Christy Stevens RN Appointment Related Social History [...] Encounter - Christy Stevens RN - 12/09/2017 5958 EST Roxanne ORTEGA: has to 12/11/17, wants [...] Preg <5 <5 mIU/ml 12/11/2017 12:50 EST [facility] Comment: Reference Range: Negative = <5 Indeterminate = 5-25 recommend repeat in 48 hours. Positive = >25 Blood specimen (specimen) BLOOD SPECIMEN / Unknown 12/11/2017 12:04 EST 12/11/2017 12:12 EST us Jenifer Baker MD CHEMISTRY & BLOOD GAS OR DERABLES Final Result [facility] [address] [place] [address] documented in this encounter Visit Diagnoses Diagnosis Abnormal uterine bleeding- Primary Unspecified disorder of menstruation and other abnormal bleeding from female genital tract documented in this encounter Care Teams Pneumatic Tube Repairer Relationship Specialty Start Date End Date Rita Quiroga MD [address] [place] [phone] PCP - General 04/13/17 documented as of this encounter
--- OUTSIDE RECORDS SUMMARY | 2024-10-15 02:07 | XMS_ITS | Encounter Summary ---
Author Organization [facility] Address [address] [place] [address] Care Team Providers Care Worker'S Compensation Claims Examiner Name Role Phone Rita Quiroga MD Primary Care Provider [phone] Reason for Visit * Reason Onset Date Comments Ectopic 04/24/2017 Encounter Details Date Type Department Care Team ([facility] Contact Info) Description 04/24/2017 Telephone [facility] OBGYN Services - [address] [address] Leni Delgado RN Ectopic Social History Tobacco [...] Encounter - Leni Delgado RN - 04/24/2017 0531 EDT Roxanne is wondering if it would [...] on filedocumented in this encounter Care Teams Worker'S Compensation Claims Examiner Relationship Specialty Start Date End Date Rita Quiroga MD [address] [place] [phone] PCP - General 04/13/17 documented as of this encounter
--- OUTSIDE RECORDS SUMMARY | 2024-10-15 02:07 | XMS_ITS | Encounter Summary ---
Author Organization [facility] Address [address] [place] [address] Care Team Providers Care Geotechnicial Properties Technician Name Role Phone Rita Quiroga MD Primary Care Provider [phone] Encounter Details Date Type Department Care Team (Late st Contact Info) Description 03/11/2024 Lab Requisition [facility] Pathology & Laboratory Medicine - [address] [address] Outr Resulting Lab, Provider Social History Tobacco [...] C Antibody Negative Negative 03/11/2024 19:02 EDT [facility] Blood VENOUS BLOOD / Unknown 03/10/2024 16:00 EDT 03/11/2024 17:31 EDT us Provider Outr Resulting Lab CHEMISTRY & BLOOD GA S ORDERABLES Final Result Performing Organization Address City/State/[facility] Co de Phone Number [facility] [address] [place] [address] documented in this encounter Visit Diagnoses Not on filedocumented in this encounter Care Teams Geotechnicial Properties Technician Relationship Specialty Start Date End Date Rita Quiroga MD [address] [place] [phone] PCP - General 04/13/17 documented as of this encounter
--- OUTSIDE RECORDS SUMMARY | 2024-10-15 02:07 | XMS_ITS | Encounter Summary ---
Author Organization [facility] Address [address] [place] [address] Care Team Providers Care Bowling Pin Refinisher Name Role Phone Rita Quiroga MD Primary Care Provider [phone] Reason for Visit * Reason Onset Date Comments Ectopic 04/25/2017 Encounter Details Date Type Department Care Team ([facility] Contact Info) Description 04/25/2017 Telephone [facility] OBGYN Services - [address] [address] Dania Ashley RN Ectopic Social History Tobacco [...] on filedocumented in this encounter Care Teams Bowling Pin Refinisher Relationship Specialty Start Date End Date Rita Quiroga MD [address] [place] [phone] PCP - General 04/13/17 documented as of this encounter
--- OUTSIDE RECORDS SUMMARY | 2024-10-15 02:07 | XMS_ITS | Encounter Summary ---
Author Organization [facility] Address [facility] [place] [address] Care Team Providers Care Sharepoint Trainer Name Role Phone Rita Quiroga MD Primary Care Provider [phone] Reason for Visit * Reason Comments Skin Check Encounter Details Date Type Department Care Team (Late st Contact Info) Description 06/13/2020 11:30 AM EDT Office Visit Dermatology at 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
--- OUTSIDE RECORDS SUMMARY | 2024-10-15 02:07 | XMS_ITS | Encounter Summary ---
Author Organization [facility] Address [address] [place] [address] Care Team Providers Care Franchise Specialist Name Role Phone Rita Quiroga MD Primary Care Provider [phone] Encounter Details Date Type Department Care Team (Late st Contact Info) Description 03/11/2024 Lab Requisition [facility] Pathology & Laboratory Medicine - [address] [address] Outr Resulting Lab, Provider Social History Tobacco [...] 4th Generation Negative Negative 03/11/2024 19:04 EDT [facility] Comment:If acute HIV-1 infec tion is suspected in a high risk patient, submit plasma specimen for HIV-1 RNA quantitation test. Blood VENOUS BLOOD / Unknown 03/10/2024 16:00 EDT 03/11/2024 17:31 EDT Narrative [facility] - 03/11/2024 19:04 EDT Fourth Generation assay performed on the Siemens Centaur XPT. us Provider Outr Resulting Lab IMMUNOLOGY AND SEROL OGY ORDERABLES Final Result [facility] [address] [place] [phone] documented in this encounter Visit Diagnoses Not on filedocumented in this encounter Care Teams Franchise Specialist Relationship Specialty Start Date End Date Rita Quiroga MD [address] [place] [phone] PCP - General 04/13/17 documented as of this encounter
--- OUTSIDE RECORDS SUMMARY | 2024-10-15 02:07 | XMS_ITS | Encounter Summary ---
Author Organization [facility] Address [address] [place] [address] Care Team Providers Care Certified Orthotist Practice Manager Name Role Phone Rita Quiroga MD Primary Care Provider [phone] Encounter Details Date Type Department Care Team (Late st Contact Info) Description 04/30/2017 9:55 EDT - 04/30/2017 23:59 EDT Hospital Encounter [address] [address] Jenifer Baker MD [address] [place] [address], [facility] [address] [place] [address] Discharge Disposition: Home or Self [...] on filedocumented in this encounter Care Teams Certified Orthotist Practice Manager Relationship Specialty Start Date End Date Rita Quiroga MD [address] [place] [phone] PCP - General 04/13/17 documented as of this encounter
--- OUTSIDE RECORDS SUMMARY | 2024-10-15 02:07 | XMS_ITS | Clinical Summary ---
Author Organization [facility] Address [address] [place] [address] Care Team Providers Care Gyroscope Repairer Name Role Phone Rita Quiroga MD Primary Care Provider [phone] Allergies No known active allergies Medications escitalopram oxalate (LEXAPRO) 10 mg tablet Take 10 mg by mouth daily. Active ranitidine (ZANTAC) 150 mg tablet Take 150 mg by mouth 2 times daily. Active fexofenadine (GRIS) 60 mg tablet Take 60 mg by mouth 2 times daily. Active LORATADINE (CLARITIN ORAL) Take by mouth. 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 Both eyes, with photopsia. Blepharitis of both eyes 10/05/2010 Myopia 10/05/2010 Encounter for insertion or r emoval of intrauterine contraceptive device 09/13/2009 General counseling and advice on contraceptive m anagement 07/27/2009 Overview (08/31/2015): ICD10 Update Auto Replacement Anxiety disorder 05/24/2009 IBS (irritable bowel syndrome) 05/24/2009 Overview (07/10/2010): Since high school. Gastroesophageal reflux disease 05/24/2009 Overview (07/10/2010): Since high school. Encounters Date Type Department Care Team Description 10/14/2024 Lab Requisition [facility] [address] [address] Outr Resulting Lab, Provider 10/14/2024 Lab Requisition [facility] [address] [address] Outr Resulting Lab, Provider 10/14/2024 Lab Requisition [facility] [address] [address] Outr Resulting Lab, Provider 10/13/2024 Lab Requisition [facility] [address] [address] Outr Resulting Lab, Provider from Last 3 [...] file Not on file Not on file Obstetrics History Para Term [...] (1 of 3 - 19+ 3-dose series) 2008 COVID-19 Vaccine (2023- season) 2024 Hepatitis C Screen Completed 10/14/2024, 03/10/2024 Medical Devices Implanted Type Area Media Professional Device Identifier Shelf Expiration Date Model / Serial / Lot Paragard Iud-Mr Safe To 3t Description:Per Dr. Dyer's office pt has a Paraguard IUD. These are MRI Safe to 3T. ECW 01/17/12 Procedures Procedure Name Priority Date/Time Associated Diagnosis Comments HEPATITIS B SURFACE ANTIGEN Routine 10/14/2024 15:00 EST HEPATITIS C AB W REFLEX TO HCV RNA BY PCR Routine 10/14/2024 15:00 EST HIV 1/2 ANTIGEN AND ANTIBODY, 4TH GENERATION Routine 10/14/2024 15:00 EST CHLAMYDIA/N. GONORRHOEAE AMPLIFIED NUCLEIC ACID Routine 10/13/2024 10:20 EST from Last 3 Months Results * HEPATITIS C AB W REFLEX TO HCV RNA BY PCR (10/14/2024 15:00 EST) Hep C Antibody Negative Negative 10/14/2024 22:59 EST [facility] Blood VENOUS BLOOD / Unknown 10/14/2024 15:00 EST 10/14/2024 21:16 EST us Provider Outr Resulting Lab CHEMISTRY & BLOOD GA S ORDERABLES Final Result Performing Organization Address [facility]/ZIP Co de Phone Number [facility] [address] [place] [address] * HEPATITIS B SURFACE ANTIGEN (10/14/2024 15:00 EST) Hep B Surface Ag Negative Negative 10/14/2024 22:36 EST [facility] Blood VENOUS BLOOD / Unknown 10/14/2024 15:00 EST 10/14/2024 21:16 EST us Provider Outr Resulting Lab CHEMISTRY & BLOOD GA S ORDERABLES Final Result Performing Organization Address [facility] de Phone Number [facility] [address] [place] [address] * HIV 1/2 ANTIGEN AND ANTIBODY, 4TH GENERATION (10/14/2024 15:00 EST) HIV 1 and 2 Antibody/p24 Antigen, 4th Generation Negative Negative 10/14/2024 23:05 EST [facility] Comment:If acute HIV-1 infec tion is suspected in a high risk patient, submit plasma specimen for HIV-1 RNA quantitation test. Blood VENOUS BLOOD / Unknown 10/14/2024 15:00 EST 10/14/2024 21:16 EST Narrative [facility] - 10/14/2024 23:05 EST Fourth Generation assay performed on the Siemens Centaur XPT. us Provider Outr Resulting Lab IMMUNOLOGY AND SEROL OGY ORDERABLES Final Result Performing Organization Address [facility]/ZIP Co de Phone Number [facility] [address] [place] [address] * CHLAMYDIA/N. GONORRHOEAE AMPLIFIED NUCLEIC ACID (10/13/2024 10:20 EST) Neisseria gonorrhoeae Result Negative Negative 10/14/2024 12:16 EST [facility] Chlamydia trachomatis Result Negative Negative 10/14/2024 12:16 EST [facility] Swab VAGINAL STRUCTURE / Unknown 10/13/2024 10:20 EST 10/13/2024 17:12 EST us Provider Outr Resulting Lab MICROBIOLOGY - GENER AL ORDERABLES Final Result [facility] [address] [place] [address] from Last 3 Months Insurance [facility] Address: [address] [phone] Care Teams Gyroscope Repairer Relationship Specialty Start Date End Date Rita Quiroga MD [address] [place] [phone] PCP - General 04/13/17
--- OUTSIDE RECORDS SUMMARY | 2024-10-15 02:07 | XMS_ITS | Encounter Summary ---
Author Organization [facility] Address [address] [place] [address] Care Team Providers Care Cnc Milling Machine Operator Name Role Phone Rita Quiroga MD Primary Care Provider [phone] Reason for Visit * Reason Onset Date Comments Appointment Related 05/08/2017 Encounter Details Date Type Department Care Team ([facility] Contact Info) Description 05/08/2017 Telephone [facility] OBGYN Services - [address] [address] Leni Delgado RN Appointment Related Social History [...] pm. Message left with Roxanne to call MOTION STUDY TECHNICIAN back with her selection. documented in this encounter Plan of Treatment Not on file documented as of this encounter Visit Diagnoses Not on filedocumented in this encounter Care Teams Cnc Milling Machine Operator Relationship Specialty Start Date End Date Rita Quiroga MD [address] [place] [phone] PCP - General 04/13/17 documented as of this encounter
--- OUTSIDE RECORDS SUMMARY | 2024-10-15 02:07 | XMS_ITS | Encounter Summary ---
Author Organization [facility] Address [address] [place] [address] Care Team Providers Care Php Mysql Web Developer Name Role Phone Rita Quiroga MD Primary Care Provider [phone] Encounter Details Date Type Department Care Team (Late st Contact Info) Description 06/10/2024 Lab Requisition [facility] Pathology & Laboratory Medicine - [address] [address] Outr Resulting Lab, Provider Social History Tobacco [...] Anti-Thyroglobulin 137(H) <=60 U/mL 2023 10:10 EDT [facility] Thyroperoxidase Ab >1,300(H) <=60 U/mL 2023 10:10 EDT [facility] Blood VENOUS BLOOD / Unknown 06/10/2024 10:30 EDT 06/10/2024 22:43 EDT us Provider Outr Resulting Lab CHEMISTRY & BLOOD GA S ORDERABLES Final Result [facility] [address] [place] [address] documented in this encounter Visit Diagnoses Not on filedocumented in this encounter Care Teams Php Mysql Web Developer Relationship Specialty Start Date End Date Rita Quiroga MD [address] [place] [phone] PCP - General 04/13/17 documented as of this encounter
--- OUTSIDE RECORDS SUMMARY | 2024-10-15 02:07 | XMS_ITS | Encounter Summary ---
Author Organization [facility] Address [address] [place] [address] Care Team Providers Care Gas Distribution And Emergency Clerk Name Role Phone Rita Quiroga MD Primary Care Provider [phone] Encounter Details Date Type Department Care Team (Late Contact Info) Description 12/11/2017 Phlebotomy Only [address] [address] Catering Truck Operator, Outpatient Abnormal uterine bleeding (Primary Dx) Social [...] Preg <5 <5 mIU/ml 12/11/2017 12:50 EST [facility] Comment: Reference Range: Negative = <5 Indeterminate = 5-25 recommend repeat in 48 hours. Positive = >25 Blood specimen (specimen) BLOOD SPECIMEN / Unknown 12/11/2017 12:04 EST 12/11/2017 12:12 EST us Jenifer Baker MD CHEMISTRY & BLOOD GAS OR DERABLES Final Result [facility] [address] [place] [address] documented in this encounter Visit Diagnoses Diagnosis Abnormal uterine bleeding- Primary Unspecified disorder of menstruation and other abnormal bleeding from female genital tract documented in this encounter Care Teams Gas Distribution And Emergency Clerk Relationship Specialty Start Date End Date Rita Quiroga MD [address] [place] [phone] PCP - General 04/13/17 documented as of this encounter
--- OUTSIDE RECORDS SUMMARY | 2024-10-15 02:07 | XMS_ITS | Encounter Summary ---
Author Organization [facility] Address [address] [place] [address] Care Team Providers Care Biomass Power Plant Superintendent Name Role Phone Rita Quiroga MD Primary Care Provider [phone] Reason for Visit * Reason Onset Date Comments Results 05/14/2017 Encounter Details Date Type Department Care Team ([facility] Contact Info) Description 05/14/2017 Telephone [facility] OBGYN Services - [address] [address] Fide Saenz, SANDRO Results Social History Tobacco [...] blood work done 05/12/17 was negative. Given SUPERVISOR COMPUTER OPERATIONS Triage # for further questions. * Telephone Encounter - Fide Saenz RN - 05/14/[address] Baker: Please let Roxanne know that her STI testing was all negative. documented in this encounter Plan of Treatment Not on file documented as of this encounter Visit Diagnoses Not on filedocumented in this encounter Care Teams Biomass Power Plant Superintendent Relationship Specialty Start Date End Date Rita Quiroga MD [address] [place] [phone] PCP - General 04/13/17 documented as of this encounter
--- OUTSIDE RECORDS SUMMARY | 2024-10-15 02:07 | XMS_ITS | Encounter Summary ---
Author Organization [facility] Address [address] [place] [address] Care Team Providers Care Data Collection Specialist Name Role Phone Rita Quiroga MD Primary Care Provider [phone] Encounter Details Date Type Department Care Team (Late Contact Info) Description 05/12/2017 Phlebotomy Only [address] [address] Quality Improvement Engineer, Outpatient Routine screening for STI (sexually transmitted [...] EDT) Syphilis Serology Negative 05/13/2017 13:24 EDT [facility] Comment:Reference Range: Neg ative Blood specimen (specimen) BLOOD SPECIMEN / Unknown 05/12/2017 9:37 EDT 05/12/2017 9:55 EDT Jenifer Baker MD IMMUNOLOGY AND SEROLOGY ORDERABLES Final Result Performing Organization Address [facility] Co de Phone Number [facility] [address] [place] [address] * HIV 1/2 ANTIBODY (05/12/2017 9:37 EDT) HIV 1/2 Antibody Negative Negative 05/12/20 12:31 EDT [facility] Comment: New methodology in use 03/18/17. Fourth generation assay performed on the Siemens Pi-Cardiaaur. If acute HIV-1 infection is suspected in a high risk patient, submit plasma specimen for HIV-1 RNA quantification test. Blood specimen (specimen) BLOOD SPECIMEN / Unknown 05/12/2017 9:37 EDT 05/12/2017 9:55 EDT Jenifer Baker MD IMMUNOLOGY AND SEROLOGY ORDERABLES Final Result Performing Organization Address [facility] Co de Phone Number [facility] [address] [place] [address] documented in this encounter Visit Diagnoses Diagnosis Routine screening for STI (sexually transmitted infection)- Primary Screening examination for venereal disease documented in this encounter Care Teams Data Collection Specialist Relationship Specialty Start Date End Date Rita Quiroga MD [address] [place] [phone] PCP - General 04/13/17 documented as of this encounter
--- OUTSIDE RECORDS SUMMARY | 2024-10-15 02:07 | XMS_ITS | Encounter Summary ---
Author Organization [facility] Address [address] [place] [address] Care Team Providers Care Mirror Framer Name Role Phone Rita Quiroga MD Primary Care Provider [phone] Encounter Details Date Type Department Care Team (Late Contact Info) Description 10/14/2024 Lab Requisition [facility] Pathology & Laboratory Medicine - [address] [address] Outr Resulting Lab, Provider Social History Tobacco [...] RNA BY PCR Routine 10/14/2024 15:00 EST HEPATITIS B SURFACE ANTIGEN Routine 10/14/2024 15:00 EST documented in this encounter Results * HEPATITIS B SURFACE ANTIGEN (10/14/2024 15:00 EST) Hep B Surface Ag Negative Negative 10/14/2024 22:[address] [facility] Blood VENOUS BLOOD / Unknown 10/14/2024 15:00 EST 10/14/2024 21:16 EST us Provider Outr Resulting Lab CHEMISTRY & BLOOD GA S ORDERABLES Final Result Performing Organization Address City/[facility]/ZIP Co de Phone Number [facility] [address] [place] [address] * HEPATITIS C AB W REFLEX TO HCV RNA BY PCR (10/14/2024 15:00 EST) Hep C Antibody Negative Negative 10/14/2024 22:59 [address] [facility] Blood VENOUS BLOOD / Unknown 10/14/2024 15:00 EST 10/14/2024 21:16 EST us Provider Outr Resulting Lab CHEMISTRY & BLOOD GA S ORDERABLES Final Result Performing Organization Address [facility] de Phone Number [facility] [address] [place] [address] documented in this encounter Visit Diagnoses Not on filedocumented in this encounter Care Teams Mirror Framer Relationship Specialty Start Date End Date Rita Quiroga MD [address] [place] [phone] PCP - General 04/13/17 documented as of this encounter
--- OUTSIDE RECORDS SUMMARY | 2024-10-15 02:07 | XMS_ITS | Encounter Summary ---
Author Organization [facility] Address [address] [place] [address] Care Team Providers Care Fourth Mate Name Role Phone Rita Quiroga MD Primary Care Provider [phone] Encounter Details Date Type Department Care Team (Late st Contact Info) Description 02/13/2022 Lab Requisition [facility] Pathology & Laboratory Medicine - [address] [address] John Chavez MD [address] [place] [phone] Left upper quadrant pain; Heartburn; Personal [...] explore management options, if applicable. 02/18/2022 14:03 [facility] Final Diagnosis A. DUODENUM, BIOPSY: - No significant pathologic abnormality B. DUODENUM, BULB, BIOPSY: - No significant pathologic abnormality C. STOMACH, ANTRUM, BIOPSY: - No significant pathologic abnormality D. STOMACH, BODY, BIOPSY: - No significant pathologic abnormality 02/18/2022 14:03 [facility] Attestation By the signature below, the attending physician certifies that they have 1) personally conducted a gross and/or microscopic examination of the described specimen(s), and/or personally interpreted the results of laboratory testing of the described specimen(s), and 2) personally rendered or confirmed the above diagnosis. 02/18/2022 14:03 [facility] at 1403 Clinical History History of GERD, pyrosis, LUQ pain; clinical diagnosis code: R10.12, R12, Z87.19 02/18/2022 14:03 [facility] Gross Description A. [...] specimen is submitted entirely in D1. HAJA MORA([facility]) 02/14/2022 10:16 02/18/2022 14:03 EDT [facility] Performing Lab [facility] 02/18/2022 14:03 T [facility] Scanned Images 02/18/2022 14:03 EDT [facility] Tissue ENTIRE STOMACH / Unknown 02/13/2022 9:55 EDT 02/13/2022 23:44 EDT Tissue specimen (specimen) STRUCTURE OF SMALL INTESTINE / Unknown 02/13/2022 9:55 EDT 02/13/2022 23:44 EDT Tissue specimen (specimen) STOMACH STRUCTURE / Unknown 02/13/2022 9:55 EDT 02/13/2022 23:44 EDT Tissue specimen (specimen) STOMACH STRUCTURE / Unknown 02/13/2022 9:55 EDT 02/13/2022 23:44 EDT us John Chavez MD PATHOLOGY ORDERABLES Final Result [facility] [address] [place] [address] documented in this encounter Visit Diagnoses Diagnosis Left upper quadrant pain Abdominal pain, left upper quadrant Heartburn Personal history of other diseases of the digestive system documented in this encounter Care Teams Fourth Mate Relationship Specialty Start Date End Date Rita Quiroga MD [address] [place] [address] [phone] PCP - General 04/13/17 documented as of this encounter
--- OUTSIDE RECORDS SUMMARY | 2024-10-15 02:07 | XMS_ITS | Encounter Summary ---
Author Organization [facility] Address [address] [place] [address] Care Team Providers Care Rn Intern Name Role Phone Rita Quiroga MD Primary Care Provider [phone] Encounter Details Date Type Department Care Team (Late Contact Info) Description 04/23/2017 Phlebotomy Only [address] [address] Director Voice, Outpatient Tubal without intrauterine (Primary Dx) Social [...] Preg 33(H) <5 mIU/ml 04/23/2017 15:36 EDT [facility] Comment: Reference Range: Negative = <5 Indeterminate = 5-25 recommend repeat in 48 hours. Positive = >25 Blood specimen (specimen) BLOOD SPECIMEN / Unknown 04/23/2017 11:22 EDT 04/23/2017 12:58 EDT us Jenifer Baker MD CHEMISTRY & BLOOD GAS OR DERABLES Final Result [facility] [address] [place] [address] documented in this encounter Visit Diagnoses Diagnosis Tubal without intrauterine - Primary documented in this encounter Care Teams Rn Intern Relationship Specialty Start Date End Date Rita Quiroga MD [address] [place] [phone] PCP - General 04/13/17 documented as of this encounter
--- OUTSIDE RECORDS SUMMARY | 2024-10-15 02:07 | XMS_ITS | Encounter Summary ---
Author Organization [facility] Address [address] [place] [address] Care Team Providers Care Public Speaker Name Role Phone Rita Quiroga MD Primary Care Provider [phone] Encounter Details Date Type Department Care Team (Late Contact Info) Description 06/20/2023 Lab Requisition [facility] Pathology & Laboratory Medicine - [address] [address] Outr Resulting Lab, Provider Social History Tobacco [...] 1, PCR Negative Negative 06/21/2023 14:[address] [facility] Herpes Simplex Virus Molecular Detection 2, PCR Negative Negative 06/21/2023 14:[address] [facility] Swab ENTIRE VAGINA / Unknown 06/20/2023 11:45 EDT 06/21/2023 11:43 EDT us Provider Outr Resulting Lab MICROBIOLOGY - GENER AL ORDERABLES Final Result [facility] [address] [place] [address] documented in this encounter Visit Diagnoses Not on filedocumented in this encounter Care Teams Public Speaker Relationship Specialty Start Date End Date Rita Quiroga MD [address] [place] [phone] PCP - General 04/13/17 documented as of this encounter
--- OUTSIDE RECORDS SUMMARY | 2024-10-15 02:07 | XMS_ITS | Encounter Summary ---
Author Organization [facility] Address [address] [place] [address] Care Team Providers Care Differential Repairer Name Role Phone Rita Quiroga MD Primary Care Provider [phone] Reason for Visit * Reason Comments Contraception Nexplanon insert Encounter Details Date Type Department Care Team ([facility] Contact Info) Description 05/12/2017 9:00 EDT Office Visit [facility] OBGYN Services - [address] [address] Jenifer Baker MD [address] [place] [address] [address] [place] [phone] Nexplanon insertion (Primary Dx); Routine [...] Refills Last Filled Start Date End Date etonogestrel (NEXPLANON) 68 mg subdermal implant Insert 1 implant subdermally once. 1 Each 05/12/2017 8 documented in this encounter Discharge Disposition Disposition [...] physician and patient. Dressing applied. Lot # [id number] Exp date 03/2018 Patient sent to the [...] EDT) Syphilis Serology Negative 05/13/2017 13:24 EDT [facility] Comment:Reference Range: Neg ative Blood specimen (specimen) BLOOD SPECIMEN / Unknown 05/12/2017 9:37 EDT 05/12/2017 9:55 EDT Jenifer Baker MD IMMUNOLOGY AND SEROLOGY ORDERABLES Final Result Performing Organization Address [facility] [[email or web address]] Co de Phone Number [facility] [address] [place] [address] * HIV 1/2 ANTIBODY (05/12/2017 9:37 EDT) HIV 1/2 Antibody Negative Negative 05/12/20 17 12:31 EDT [facility] Comment: New methodology in use 03/18/17. Fourth generation assay performed on the Siemens Group IV Semiconductoraur. If acute HIV-1 infection is suspected in a high risk patient, submit plasma specimen for HIV-1 RNA quantification test. Blood specimen (specimen) BLOOD SPECIMEN / Unknown 05/12/2017 9:37 EDT 05/12/2017 9:55 EDT Jenifer Baker MD IMMUNOLOGY AND SEROLOGY ORDERABLES Final Result Performing Organization Address [facility] [[email or web address]] Co de Phone Number [facility] [address] [place] [phone] * CHLAMYDIA/N. GONORRHOEAE AMPLIFIED RNA, URINE (05/12/2017 9:26 EDT) Chlamydia Result Negative 05/13/20 17 14:32 EDT [facility] Comment: This test was developed and its performance characteristics determined by [facility]. It has not been cleared or approved [...] samples. GC Result Negative 05/13/2017 14:32 EDT [facility] Comment: This test was developed and its performance characteristics determined by [facility]. It has not been cleared or approved [...] 10:17 EDT Jenifer Baker MD MICROBIOLOGY - GENERAL O RDERABLES Final Result Performing Organization Address City/[facility]/ZIP Co de Phone Number [facility] [address] [place] [address] * POCT TEST, [facility] (05/12/2017 9:12 EDT) UPT Result Neg Neg 05/12/2017 9:23 EDT [facility] personal lines sales executive ID [id number] 05/12/2017 9:23 EDT [facility] Comment:Test performed at [facility] Urine specimen (specimen) URINE / Unknown 05/12/2017 9:12 EDT 05/12/2017 9:23 EDT Jenifer Baker MD POINT OF CARE TEST ORDER DALLIN Final Result Performing Organization Address City/[facility]/ZIP Co de Phone Number [facility] [address] [place] [address] documented in this encounter Visit Diagnoses Diagnosis [...] mg documented in this encounter Care Teams Differential Repairer Relationship Specialty Start Date End Date Rita Quiroga MD [address] [place] [phone] PCP - General 04/13/17 documented as of this encounter
--- OUTSIDE RECORDS SUMMARY | 2024-10-15 02:07 | XMS_ITS | Encounter Summary ---
Author Organization [facility] Address [address] [place] [address] Care Team Providers Care Wringer And Setter Name Role Phone Rita Quiroga MD Primary Care Provider [phone] Encounter Details Date Type Department Care Team (Late Contact Info) Description 10/13/2024 Lab Requisition [facility] Pathology & Laboratory Medicine - [address] [address] Outr Resulting Lab, Provider Social History Tobacco [...] Comments CHLAMYDIA/N. GONORRHOEAE AMPLIFIED NUCLEIC ACID Routine 10/13/2024 10:20 EST documented in this encounter Results * CHLAMYDIA/N. GONORRHOEAE AMPLIFIED NUCLEIC ACID (10/13/2024 10:20 EST) Neisseria gonorrhoeae Result Negative Negative 10/14/2024 12:16 EST [facility] Chlamydia trachomatis Result Negative Negative 10/14/2024 12:16 EST [facility] Swab VAGINAL STRUCTURE / Unknown 10/13/2024 10:20 EST 10/13/2024 17:12 EST us Provider Outr Resulting Lab MICROBIOLOGY - GENER AL ORDERABLES Final Result [facility] [address] [place], [place] [address] documented in this encounter Visit Diagnoses Not on filedocumented in this encounter Care Teams Wringer And Setter Relationship Specialty Start Date End Date Rita Quiroga MD [address] [place] [phone] PCP - General 04/13/17 documented as of this encounter
--- OUTSIDE RECORDS SUMMARY | 2024-10-15 02:07 | XMS_ITS | Encounter Summary ---
Author Organization [facility] Address [address] [place] [address] Care Team Providers Care Dessert Cup Machine Feeder Name Role Phone Rita Quiroga MD Primary Care Provider [phone] Reason for Visit * Reason Onset Date Comments Ectopic 04/30/2017 Encounter Details Date Type Department Care Team ([facility] Contact Info) Description 04/30/2017 Telephone [facility] OBGYN Services - [address] [address] Leni Delgado RN Ectopic Social History Tobacco [...] Encounter - Leni Delgado RN - 04/30/2017 1542 EDT Component Latest Ref Rng & Units [...] on filedocumented in this encounter Care Teams Dessert Cup Machine Feeder Relationship Specialty Start Date End Date Rita Quiroga MD [address] [place] [phone] PCP - General 04/13/17 documented as of this encounter
--- OUTSIDE RECORDS SUMMARY | 2024-10-15 02:07 | XMS_ITS | Data Portability ---
Author Organization [facility] Address [address] [place] [address] Assessment No assessment recorded. Plan of Treatment Reminders Order Date Submit Date Provider Last Modified By Organization Details Last Modified Time Details Appointments Annual Wellness Exam 30 2024 02:20P M Rita Quiroga Not available Not available Not available Lab TSH, serum, reflex free T4 2023 024 [facility] (Registration ), [address] [place] [address] [place], [address], 03/11/2024 13:20:04 CBC w/ auto diff 2023 024 [facility] (Registration ), [address] [place] [address] [place], [address], 03/10/2024 20:24:03 HIV (1+2) Ab screen, serum 2023 024 [facility] (Registration ), [address] [place] [address] [place], [address], 03/12/2024 09:14:21 hepatitis C virus Ab, serum 2023 024 [facility] (Registration ), [address] [place] [address] [place], [address], 03/12/2024 09:14:01 TSH, serum, reflex free T4 2023 024 [facility] (Registration ), [address] [place] [address] [place], [address], 06/13/2024 16:45:10 thyroglob ulin Ab, serum [email or web address] [place] [address] Laboratory (Registration ), [address] [place] [address] [place], [address], 06/24/2024 09:59:58 thyropero xidase Ab, serum 2023 024 [facility] (Registration ), [address] [place] [address] [place], [address], 06/13/2024 16:44:45 Referral None recorded. Procedures None recorded. Surgeries None recorded. Imaging None recorded. Medication Orders albuterol sulfate HFA 90 mcg/actua tion aerosol inhaler 2022 023 [email or web address], [address] [place], [address], 03/10/2024 15:07:17 prednison e 20 mg tablet 2022 023 [email or web address] [facility], [address] [place], [address], 02/19/2024 09:20:57 benzonata te 100 mg capsule 2022 023 [email or web address] [facility], [address] [place], [address], 02/19/2024 09:29:24 metoprolo l tartrate 25 mg tablet 2023 024 [facility], [address] [place] [address], [address], [address], 03/10/2024 16:53:[address] 10 mg tablet 2023 024 [facility], [address] [place] [address], [address], [address], 03/10/2024 16:53:17 escitalop jose m 10 mg tablet 2023 024 [facility] [place], [address], [facility], [place], [address], 03/10/2024 16:53:13 alprazola m 0.25 mg tablet 2023 024 [facility] [place], [address], [facility], [place], [address], 03/10/2024 16:53:18 Patient TargetsNo targets recorded. Patient Instructions Encounter Date Encounter Id Patient Instructions Last Modified By Organization Details Last Modified Time 11/14/2023 [id number] Start ALBUTEROL 2 puffs every 4-6 hours for cough. Can use BENZONOTATE caps as needed up to 3 times a day. If not better in a few days,start the prednisone 20 mg tablets, 2 for 5 days, then 1 for 5 days. Can try the metoprolol either daily or as needed. [email or web address] Not available 11/14/2023 15:57:59 02/19/2024 [id number] General measures we can take to minimize [...] prolonged asthma exacerbations caused by respiratory illness. Not available 02/19/2024 09:27:11 Reason for Referral None Reported. Results Created Date Observation Date Name Description Value Unit Range Abnormal Flag Note LastModifiedBy Organization Detail LastModifiedTime 03/10/20 24 03/10/2024 COMPL ETE BLOOD COUNT W/DIF F WBC 7.23 10_3/ uL 4.4-10 .8 normal Not Available [facility] [address] , [place], [address] 03/10/2024 20:24:03 03/10/20 24 03/10/2024 COMPL ETE BLOOD COUNT W/DIF F RBC 4.33 10_6/ uL 3.93-5 .22 normal Not Available [address] [place], [address] 03/10/2024 20:24:03 03/10/20 24 03/10/2024 COMPL ETE BLOOD COUNT W/DIF F HGB 12.7 g/dL 11.2-1 5.7 normal Not Available [address] [place], [address] 03/10/2024 20:24:03 03/10/20 24 03/10/2024 COMPL ETE BLOOD COUNT W/DIF F HCT 38.9 % 36.0-4 6.0 normal Not Available [address] [place], [address] 03/10/2024 20:24:03 03/10/20 24 03/10/2024 COMPL ETE BLOOD COUNT W/DIF F MCV 90 fL 80-95 normal Not Available [address] [place], [address] 03/10/2024 20:24:03 03/10/20 24 03/10/2024 COMPL ETE BLOOD COUNT W/DIF F MCH 29.3 pg 27.0-3 3.0 normal Not Available [address] [place], [address] 03/10/2024 20:24:03 03/10/20 24 03/10/2024 COMPL ETE BLOOD COUNT W/DIF F MCHC 32.6 % 32.0-3 6.0 normal Not Available [address] [place], [address] 03/10/2024 20:24:03 03/10/20 24 03/10/2024 COMPL ETE BLOOD COUNT W/DIF F RDW 12.8 % 11.7-1 4.6 normal Not Available [address] [place], [address] 03/10/2024 20:24:03 03/10/20 24 03/10/2024 COMPL ETE BLOOD COUNT W/DIF F platelet count 293 10_3/ uL 130-40 0 normal Not Available [address] [place], [address] 03/10/2024 20:24:03 03/10/20 24 03/10/2024 COMPL ETE BLOOD COUNT W/DIF F MPV 10.7 fL 8.0-11 .0 normal Not Available [address] [place], [address] 03/10/2024 20:24:03 03/10/20 24 03/10/2024 COMPL ETE BLOOD COUNT W/DIF F neutrophils % 60.3 Not Available [address] [place], [address] 03/10/2024 20:24:03 03/10/20 24 03/10/2024 COMPL ETE BLOOD COUNT W/DIF F lymphocytes % 27.0 Not Available [address] [place], [address] 03/10/2024 20:24:03 03/10/20 24 03/10/2024 COMPL ETE BLOOD COUNT W/DIF F monocytes % 7.9 Not Available [address] [facility] [place], [address] 03/10/2024 20:24:03 03/10/20 24 03/10/2024 COMPL ETE BLOOD COUNT W/DIF F eosinophils % 3.9 Not Available [address] [place], [address] 03/10/2024 20:24:03 03/10/2003/10/2024 COMPL ETE BLOOD COUNT W/DIF F basophils % 0.6 Not Available [address] [facility] [place], [address] 03/10/2024 20:24:03 03/10/2003/10/2024 COMPL ETE BLOOD COUNT W/DIF F immature grans % 0.3 Not Available [address] [place], [address] 03/10/2024 20:24:03 03/10/20 24 03/10/2024 COMPL ETE BLOOD COUNT W/DIF F nucleated RBC 0.0 % 0.0-0. 3 normal Not Available [address] [place], [address] 03/10/2024 20:24:03 03/10/20 24 03/10/2024 COMPL ETE BLOOD COUNT W/DIF F absolute neutrophil count 4.37 10_3/ uL 1.2-6. 7 normal Not Available [address] [place], [address] 03/10/2024 20:24:03 03/10/20 24 03/10/2024 COMPL ETE BLOOD COUNT W/DIF F absolute lymphocyte count 1.95 10_3/ uL 1.2-3. 4 normal Not Available [address] [place], [address] 03/10/2024 20:24:03 03/10/20 24 03/10/2024 COMPL ETE BLOOD COUNT W/DIF F absolute monocyte count 0.57 10_3/ uL 0.1-0. 8 normal Not Available [address] [place], [address] 03/10/2024 20:24:03 03/10/20 24 03/10/2024 COMPL ETE BLOOD COUNT W/DIF F absolute eosinophil count 0.28 10_3/ uL 0.0-0. 7 normal Not Available [address] [place], [address] 03/10/2024 20:24:03 03/10/20 24 03/10/2024 COMPL ETE BLOOD COUNT W/DIF F absolute basophil count 0.04 10_3/ uL 0.0-0. 2 normal Not Available [address] [place], [address] 03/10/2024 20:24:03 03/10/20 24 03/10/2024 TSH (W/RE F FT4) TSH (w/ref FT4) 6.45 uIU/m L 0.36-3 .74 high Not Available [address] [place], [address] 03/10/2024 20:43:00 03/10/20 24 03/10/2024 TSH (W/RE F FT4) TSH (w/ref FT4) 6.45 uIU/m L 0.36-3 .74 high Not Available [facility] (Registration ) [address] [place] [address] [place], [address], 03/10/2024 21:08:02 03/10/20 24 03/10/2024 FREE T4 free T4 0.89 NG/dL 0.76-1 .46 normal Not Available [address] [place], [address] 03/10/2024 21:08:03 03/10/20 24 03/11/2024 HIV-1 /2 AG AB SCREE N HIV-1/2 Ag Ab screen Negati ve negati ve If acute HIV-1 infec tion is suspe cted in a high risk patie nt, submi t plasm a speci men for HIV-1 RNA quant itati on test. Fourt h Gener ation assay perfo rmed on the [employer] ur XPT. Test perfo rmed or refer red by [facility] [address], [place] [address] Not Available [facility] (Registration ) [address] [place] [address] [place], [address], 03/12/2024 09:00:24 03/10/20 24 03/11/2024 HEPAT ITIS C AB W RFLX HCV PCR hepatitis C Ab W rflx HCV PCR Negati ve negati ve Test perfo rmed or refer red by [facility] [address], [place] [address] Not Available [facility] (Registration ) [address] [place] [address] [place], [address], 03/12/2024 09:00:25 03/29/20 24 03/29/2024 VAGIN AL PATHO GEN SCREE N vaginal pathogen screen Vagin al Patho gen Scree n ROSALIND DA NEGAT TANVIR GARDN ERELL A NEGAT TANVIR TRICH OMONA S NEGAT TANVIR Not Available [address] [place], [address] 03/29/2024 21:05:53 06/10/20 24 06/10/2024 TSH (W/RE F FT4) TSH (w/ref FT4) 4.50 uIU/m L 0.36-3 .74 high Not Available [facility] (Registration ) [address] [place] [address] [place], [address], 06/10/2024 15:49:41 06/10/20 24 06/10/2024 TSH (W/RE F FT4) TSH (w/ref FT4) 4.50 uIU/m L 0.36-3 .74 high Not Available [address] [place], [address] 06/10/2024 16:12:29 06/10/20 24 06/10/2024 FREE T4 free T4 0.94 NG/dL 0.76-1 .46 normal Not Available [address] [place], [address] 06/10/2024 16:12:30 06/10/20 24 06/11/2024 THYRO ID ANTIB ODIES thyroglobuli n antibody 137 U/mL <=60 abnormal Not Available [facility] (Registration ) [address] [place] [address] [place], [address], 06/11/2024 16:44:29 06/10/20 24 06/11/2024 THYRO ID ANTIB ODIES thyroperoxid ase antibody >1300 U/mL <=60 abnormal Test perfo rmed or refer red by [facility] [address], [place] [address] Not Available [facility] (Registration ) [address] [place] [address] [place], [address], 06/11/2024 16:44:29 07/21/20 24 07/21/2024 TSH (W/RE F FT4) TSH (w/ref FT4) 3.55 uIU/m L 0.36-3 .74 normal Not Available [address] [place], [address] 07/21/2024 13:04:37 08/16/20 24 08/16/2024 HCG QUANT HCG quant 339 mIU/m L 1-3 high Appro ximat e Gesta beth l Age/A pprox imate HCG Range mIU/m L 0.2-1 Week 5-50 1-2 Weeks 50-50 0 2-3 Weeks 100-5 ,000 3-4 Weeks 500-1 0,000 4-5 Weeks 1,000 -50,0 00 5-6 Weeks 10,00 0-100 ,000 6-8 Weeks 15,00 0-200 ,000 2-3 Month s 10,00 0-100 ,000 Not Available [address] [place], [address] 08/16/2024 14:06:14 08/18/20 24 08/18/2024 HCG QUANT HCG quant 905 mIU/m L 1-3 high Appro ximat e Gesta beth l Age/A pprox imate HCG Range mIU/m L 0.2-1 Week 5-50 1-2 Weeks 50-50 0 2-3 Weeks 100-5 ,000 3-4 Weeks 500-1 0,000 4-5 Weeks 1,000 -50,0 00 5-6 Weeks 10,00 0-100 ,000 6-8 Weeks 15,00 0-200 ,000 2-3 Month s 10,00 0-100 ,000 Not Available [address] [place], [address] 08/18/2024 13:19:37 10/13/20 24 10/14/2024 CHLAM YDIA/ GC AMPLI FIED RNA chlamydia result Negati ve negati ve Sourc e:Vag inal Test perfo rmed or refer red by [facility] [address] [place] [address] Not Available [address] [place], [address] 10/14/2024 17:19:38 10/13/20 24 10/14/2024 CHLAM YDIA/ GC AMPLI FIED RNA GC result Negati ve negati ve Not Available [address] [place], [address] 10/14/2024 17:19:38 10/13/20 24 10/14/2024 URINE CULTU RE urine culture Urine Cultu re Proba ble conta minat ed colle ction APPEA JOHNIE Mixed Gram Posit tanvir Analia COLON Y COUNT Not Available [address] [place], [address] 10/14/2024 12:17:00 10/13/20 24 10/14/2024 URINE CULTU RE urine culture colon ies/m L 10,00 0 - 50,00 0 Day 1 Resul t ISOLA LESVIA BELOW O:GPF M (ORGA NISM ID: 1.1) - GRAM POSIT TANVIR ANALIA ,MIXE D Urine Cultu re (ORGA NISM ID: 1.1) - COLON Y COUNT (ORGA NISM ID: 1.1) - 10,00 0 - 50,00 0 Not Available [address] [place], [address] 10/14/2024 12:17:00 10/14/20 24 10/14/2024 FREE T4 free T4 0.86 NG/dL 0.76-1 .46 normal Not Available [address] [place], [address] 10/14/2024 17:45:20 10/14/20 24 10/14/2024 TSH (W/RE F FT4) TSH (w/ref FT4) 4.59 uIU/m L 0.36-3 .74 high Not Available [address] [place], [address] 10/14/2024 17:45:19 10/14/20 24 10/14/2024 TSH (W/RE F FT4) TSH (w/ref FT4) 4.59 uIU/m L 0.36-3 .74 high Not Available [address] [place], [address] 10/14/2024 17:08:11 10/14/20 24 10/14/2024 PANOR AMA KIT panorama kit Sent via [employer] Not Available [address] [place], [address] 10/14/2024 15:13:37 11/04/2011/04/2023 kellie r monit or Holter Monito r PATIEN T NAME: Ekta [place] V UNIT #: [id number] ORDERI NG PROVID ER: Rita Quiroga M.D. ACCOUN T #: [id number] PRIMAR Y CARE PROVID ER: RITA QUIROGA MD DATE/T MICHELLE OF SERVI CE: : 1989 AMY BONILLA ON: CARDTRINIDAD NVT ------ ------ --- APPROV ED REPORT [...] ---- ------ - E-Sign Date: E-Sign Time: [email or web address] [place], [address] 11/04/2023 12:13:05 08/16/20 24 12/20/2021 elayne vazquez/melissa jason No observ ation record ed. [email or web address] Not [...] Recorded Time Epidermo id cyst of skin 434066121 Completed 201405/30/2015 Problem Code: L72.3; Problem Code Type: ICD-10; Not Available [facility] 3 04:48:05 Fatigue 20112824 Completed 201505/21/2016 Problem Code: R53.83; Problem Code Type: ICD-10; Not Available [facility] 3 04:48:05 Disorder of skin and/or subcutan eous tissue 45194193 Completed 201508/29/2016 07/05/20 16 - Comments only - Rita Quiroga MD - pper her request, she is referred to dermatol sheng. Problem Code: L98.9; Problem Code Type: ICD-10; Not Available [facility] 3 04:48:05 Traumati c or non-trau matic injury 683037876 Completed 201507/26/2016 07/05/20 16 - Comments only - Rita Quiroga MD - Of her foot, no evidence of fracture , simply monitori ng for now. Problem Code: T14.8; Problem Code Type: ICD-10; Not Available [facility] 3 04:48:05 Localize d enlarged lymph nodes 144750681 Completed 201507/26/2016 07/05/20 16 - Comments only - Rita Quiroga MD - This is not diffuse, has been only present for a few days, and is tender, most likely a reactive lymphade nopathy. Return to clinic if she develops diffuse lymphade nopathy Problem Code: R59.0; Problem Code Type: ICD-10; Not Available [facility] 3 04:48:05 Acute upper respirat ory infectio n 19067805 Completed 201611/03/2017 10/20/20 17 - Comments only - Rita Quiroga MD - symptoma tic treatmen t with tylenol or NSAIDs, discusse d natural history of viral URI, sytmpoms up to 10-14 days. Problem Code: J06.9; Problem Code Type: ICD-10; Not Available [facility] 3 04:48:06 Adult health examinat ion Active [address] [place], [address] , [facility] 4 22:19:38 Nonulcer dyspepsi a 4283570 Active 2017 PHILIP dahl [place] - [facility]. 4 10:25:18 Allergic rhinitis 54421152 Completed 201708/27/2023 03/07/20 23 - Comments only - Rita Quiroga MD - Better with singulai r, and her cough is much better as well. Does continue to loratadi ne as well. Problem Code: J30.9; Problem Code Type: ICD-10; Not Available [facility] 3 04:48:06 Chronic tension- type headache 618808995 Active 2018 RITA QUIROGA MD [address], [place], [address] , [place] - [facility]. 3 15:42:23 Idiopath ic osteoart hritis 480889978 Active 2018 ha QUIROGA MD [address], [place], [address] , [place] - [facility]. 4 22:20:00 Acute upper respirat ory infectio n 56291433 Completed 201802/08/2019 01/25/20 19 - Comments only - Rita Quiroga MD - No evidence currentl y of bacteria l superinf ection, somatic treatmen t. Written informat ion for trying to avoid sinusiti s is written and given. Problem Code: J06.9; Problem Code Type: ICD-10; Not Available [facility] 3 04:48:06 Acute upper respirat ory infectio n 10113021 Completed 201806/16/2019 Problem Code: J06.9; Problem Code Type: ICD-10; Not Available [facility] 3 04:48:07 Fatigue 61520791 Completed 201806/16/2019 06/02/20 19 - Comments only - Rita Quiroga MD - Will check CBC. She has been anemic in the past. Problem Code: R53.83; Problem Code Type: ICD-10; Not Available [facility] 3 04:48:07 Anemia 414632969 Completed 201806/16/2019 Problem Code: D64.9; Problem Code Type: ICD-10; Not Available [facility] 3 04:48:07 Non-supp urative otitis media 823612255 Completed 201806/16/2019 06/02/20 19 - Comments only - Rita Quiroga MD - If symptoms worsen, I gave her a written prescrip tion for amoxicil aida 500 3 times daily to fill. Problem Code: H65.92; Problem Code Type: ICD-10; Not Available [facility] 3 04:48:07 Tinnitus of left ear 83002476139 06 Active 12/04/ 2019 ENT/hear ing evaluati on 2019 RITA QUIROGA MD [address], [place], [address] , [place] - [facility]. 4 22:18:27 Neck pain 12979836 Completed 201811/17/2019 11/03/20 19 - Comments only - Rita Quiroga MD - Referral to physical therapy Problem Code: M54.2; Problem Code Type: ICD-10; Not Available [facility] 3 04:48:07 Cough 31308603 Completed 201812/13/2019 11/29/20 19 - Comments only - Shelia Mary Reji [employer] - Likely due to post-raeann al drip and irritati on from cold air. Lung sounds clear today with good aeration , no cough heard during patient encounte r. [facility] ed covering mouth/no se while running to avoid cold air and allergy symptom mgmt. Advised of red flag sx requirin g emergenc y care (difficu lty breathin g); [facility] ed f/u if cough or tightnes s in chest while running persists Problem Code: R05; Problem Code Type: ICD-10; Not Available [facility] 3 04:48:08 Astjohn is cutis 16875436 Completed 201812/13/2019 11/29/20 19 - Comments only - Shelia Mendoza [employer] - Due to history of eczema as a child and current presenta tion, likely eczema. [facility] ed use of emollien t cream and protecti ng from cold air. Problem Code: L85.3; Problem Code Type: ICD-10; Not Available [facility] 3 04:48:08 Mild intermit tent asthma 954322815 Active 2019 PHILIP dahl [facility]. 4 10:25:14 Contrace ption care manageme nt Active 2019 PHILIP dahl [facility]. 4 10:22:54 Left upper quadrant pain 867933561 Completed 09/29202009/12/2021 08/29/20 21 - Comments only - Rita [...] Code Type: ICD-10; Not Available [facility] 3 04:48:08 Nausea 755910340 Completed 202009/12/2021 Problem Code: R11.0; Problem Code Type: ICD-10; Not Available [facility] 3 04:48:08 Palpitat ions 30379357 Active 2021 reassuri ng holter monitors 12/2021 and 10/2023- PAC and PVCs metoprol ol 10/2023 RITA QUIROGA MD [facility] [address], [place], [address] [facility] 4 22:21:38 Irritabl e bowel syndrome 45271534 Active 2022 PHILIP dahl [facility] 4 10:25:02 Acute vaginiti s 26961751 Completed 202206/30/2023 06/16/20 23 - Comments only - Rita Quiroga MD - vaginal screen obtained today. Problem Code: N76.0; Problem Code Type: ICD-10; Not Available [facility] 3 04:48:09 Anxiety disorder 986428241 Active 2022 PHILIP dahl [facility] 4 10:25:50 Pelvic and perineal pain 983916275 Completed 202003/07/2023 Problem Code: R10.2; Problem Code Type: ICD-10; Not Available [facility] 3 04:48:10 Gastroes ophageal reflux disease without esophagi tis 338378417 Completed 201708/27/2023 06/02/20 19 - Comments only - Rita Quiroga MD - Continue with martha sullivan. Problem Code: K21.9; Problem Code Type: ICD-10; Not Available [facility] 3 04:48:10 Pain of left knee joint 92623185983 4107 Completed 201809/13/2020 Problem Code: M25.562; Problem Code Type: ICD-10; Not Available [facility] 3 04:48:10 Bilatera l disorder of Eustachi an tubes 81848792121 69975 Completed 201803/15/2020 Problem Code: H69.83; Problem Code Type: ICD-10; Not Available [facility] 3 04:48:10 Pain of left wrist 40608257541 9102 Completed 202003/07/2023 Problem Code: M25.532; Problem Code Type: ICD-10; Not Available [facility] 3 04:48:10 Pain of right shoulder joint 25386110490 579050 Completed 201709/13/2020 Problem Code: M25.511; Problem Code Type: ICD-10; Not Available [facility] 3 04:48:11 Vaginal bleeding 791215272 Completed 201704/30/2018 Not Available [facility] 3 04:48:11 Family history of hemochro matosis 882717664 Completed 201508/27/2023 RITA QUIROGA MD [facility] [address], [place], [address] , [facility] 4 22:16:04 Health conditio n feared but not present 24605784711 9109 Completed 202206/16/2023 Problem Code: Z71.1; Problem Code Type: ICD-10; Not Available [facility] 3 04:48:11 Acute upper respirat ory infectio n 42055003 Completed 202103/07/2023 Problem Code: J06.9; Problem Code Type: ICD-10; Not Available [facility] 3 04:48:11 Uncompli cated mild persiste nt asthma 646508558 Completed 201908/27/2023 03/15/20 20 - Comments only [...] J45.30; Problem Code Type: ICD-10; Not Available [facility] 3 04:48:12 History of Lyme disease 422738420 Active 2023 PHILIP dahl, [facility] 4 10:24:38 Rhinitis 70361410 Active 2017 allergic MD [address], [facility] [address] , [facility] 4 22:17:08 Tension- type headache 741449487 Active 2018 Stormy dahl, [facility] 4 14:03:32 Family history of hemochro matosis 217709956 Active [address], [facility] [address] , [facility] 4 22:16:04 Past pregnanc y history of ectopic pregnanc y 868873232 Active 2016 [place], treated with medicati ons. MD [address]ian [address], [facility] [address] , [facility] 4 22:16:57 Recurren t major depressi on 06243841 Active [address], [facility] [address] , [facility] 4 22:19:29 Subclini max hypothyr oidism 38764004 Active [address], [place], [address] , [place] [facility] 22:28:28 Problem Notes None recorded. Procedures Surgical History None recorded. Imaging Results Imaging Date Name Status LastModified by Organiz ation Details LastModified Time 11/04/2023 holter monitor completed [email or web address] [facility] [address] [facility] , [place], [address] 11/04/2023 12:13:05 12/20/2021 imaging/diag nostic result completed [...] Take 2 capsule by mouth single dose 08/023 completed Not Available Not Available Not Available [...] Available Not Avai lable [facility] spacer USE DIRECTED 03/10 completed Not Available Not Available Not Available Vitals Date Recorded Body height Body mass index (BMI) Body weight Body temperature Heart rate Respiratory rate Systolic blood pressure Diastolic blood pressure Provider Name and Address Organization Details Last Updated DateTime 3 160.02 cm 23.9 kg/m2 77382.9 7 g 98.1 [degF] 64 /min 16 /min 124 mm[Hg] 80 mm[Hg] NICLOETTE HELTON LPN [facility] 3 15:36:39 Date Recorded Body height Body mass index (BMI) Body weight Body temperature Oxygen saturation Oxygen saturation in Arterial blood by Pulse oximetry Heart rate Systolic blood pressure Diastolic blood pressure Provider Name and Address Organization Details Last Updated DateTime 4 160.02 cm 24.2 kg/m2 42037 g 98.1 [degF] 95 % 95 % 80 /min 114 mm[Hg] 58 mm[Hg] JOSEFINA JIMENEZ MA [facility] 4 09:29:02 Date Recorded Body height Body mass index (BMI) Body weight Body temperature Respiratory rate Heart rate Systolic blood pressure Diastolic blood pressure Provider Name and Address Organization Details Last Updated DateTime 4 160.02 cm 24.4 kg/m2 43292.7 5 g 98.2 [degF] 14 /min 76 /min 116 mm[Hg] 84 mm[Hg] NICOLETTE HELTON LPN [facility] 4 15:09:12 Social History Question Answer Notes LastModified by Organization Details LastModified Time Tobacco Smoking Status Never Smoker occassionally in the past NICOLETTE HELTON LPN [facility], [place] - [facility]. 03/10/2024 15:12:04 Would You [...] Age of this Age Resolved Age Notes LastModified by Organization Details LastModified Time Father Family history of Depression [email or web address] Not available 10/10 04:00:56 Mother Family history of Depression [email or web address] Not available 10/10 04:00:56 Notes:*Problem: Mother: Des gerardo age 59, depression [...] Recorded Time MMR 07/28/1990 completed Not Available [facility] 05:27:43 MMR 09/27/1998 completed Not Available [facility] 05:27:44 DTaP, unspecified formulation 05/13/1994 completed Not Available [facility] 10/10/2023 05:27:44 DTaP, unspecified formulation 1989 completed Not Available [facility] 10/10/2023 05:27:44 DTaP, unspecified formulation 1989 completed Not Available [facility] 10/10/2023 05:27:44 DTaP, unspecified formulation 10/02/1990 completed Not Available [facility] 10/10/2023 05:27:44 DTaP, unspecified formulation 1989 completed Not Available [facility] 10/10/2023 05:27:44 meningococcal ACWY, unspecified formulation 07/02/2007 completed Not Available [facility] 10/10/2023 05:27:44 Tdap 02/08/2011 completed Not Available [facility] 05:27:44 Tdap 08/29/2021 completed Not Available [facility] 05:27:45 HPV, unspecified formulation 04/28/2008 completed Not Available [facility] 10/10/2023 05:27:45 HPV, unspecified formulation 07/02/2007 completed Not Available [facility] 10/10/2023 05:27:45 HPV, unspecified formulation 10/20/2007 completed Not Available [facility] 10/10/2023 05:27:45 Td(adult) unspecified formulation 09/24/2004 completed Not Available [facility] 10/10/2023 05:27:45 Influenza, split virus, quadrivalent, PF 08/29/2021 completed Not Available [facility] 10/10/2023 05:27:45 Influenza, split virus, quadrivalent, PF 09/13/2020 completed Not Available [facility] 10/10/2023 05:27:45 Influenza, MDCK, trivalent, PF 10/11/2015 completed Not Available [facility] 10/10/2023 05:27:45 COVID-19, mRNA, LNP-S, PF, 30 mcg/0.3 mL dose 02/09/2021 completed Not Available [facility] 10/10/2023 05:27:45 COVID-19, mRNA, LNP-S, PF, 30 mcg/0.3 mL dose 03/09/2021 completed Not Available [facility] 10/10/2023 05:27:46 SARS-COV-2 (COVID-19) vaccine, UNSPECIFIED 08/28/2022 completed Not Available [facility] 10/10/2023 05:27:46 SARS-COV-2 (COVID-19) vaccine, UNSPECIFIED 09/24/2021 completed Not Available [facility] 10/10/2023 05:27:46 Hep B, unspecified formulation 07/04/2000 completed Not Available [facility] 10/10/2023 05:27:46 Hep B, unspecified formulation 07/27/1997 completed Not Available [facility] 10/10/2023 05:27:46 Hep B, unspecified formulation 10/08/1999 completed Not Available [facility] 10/10/2023 05:27:46 Hep A, unspecified formulation 12/03/2006 completed Not Available [facility] 10/10/2023 05:27:46 Hep A, unspecified formulation 05/02/2005 completed Not Available [facility] 10/10/2023 05:27:46 influenza, unspecified formulation 09/10/2018 completed Not Available [facility] 10/10/2023 05:27:46 influenza, unspecified formulation 09/14/2019 completed Not Available [facility] 10/10/2023 05:27:47 polio, unspecified formulation 05/03/1994 completed Not Available [facility] 10/10/2023 05:27:47 polio, unspecified formulation 1989 completed Not Available [facility] 10/10/2023 05:27:47 polio, unspecified formulation 1989 completed Not Available [facility] 10/10/2023 05:27:47 COVID-19, mRNA, LNP-S, PF, sb-sucrose, 30 mcg/0.3 mL 09/24/2023 completed Not Available [facility] 12/12/2023 05:33:14 influenza, unspecified formulation 10/13/2024 completed NICOLETTE HELTON LPN null, [place] - [facility]. 10/13/2024 13:30:48 Past Encounters Encounter ID Performer Location Encounter Start Date Encounter Closed Date Diagnosis/Indication Diagnosis SNOMED-CT Code Diagnosis ICD10 Code [id number] RITA QUIROGA MD [facility] [address] [place] [address] 11/14/2023 15:25:50 11/14/2023 16:01:43 Palpitations 73630800 R00.2 Bronchospasm 4628621 J98 .01 [id number] HAJA GARZA [facility] [address] [place] [address] 02/19/2024 09:17:54 02/19/2024 10:01:12 Anxiety 11153104 F41.9 Mild inter mittent asthma 615783136 J45.20 [id number] RITA QUIROGA MD [facility] [address] [place] [address] 03/10/2024 14:51:45 03/10/2024 15:57:19 Adult health examination 435050313 Z00.00 Subclinica l hypothyroidism 84071850 E02 Night sweats 78712613 R6 1 Anxiety 32179753 F41.9 Rhinitis 71154959 J00 Palpitations 01372628 R0 0.2 [id number] Lynne Drake RN [facility] [address] [place] [address] 06/10/2024 10:23:38 06/10/2024 10:36:34 Hypothyroidism 75946861 E03.9 Health Concerns Section Related Observation LastModified by Organization Detai ls LastModified Time None Recorded Concern Status LastModified by Organization Details LastModified Time None Recorded Advance Directives Directive None Recorded Payers Encounter Date Sequence Insurance Name Policy Number Policy Cruz Covered Member ID Cruz Member ID Guarantor Name 11/14/2023 1 [place] [employer] [place] Roxanne V [place] [id number] Roxanne V [place] 02/19/2024 1 [place] Roxanne V [place] [id number] Roxanne V [place] 03/10/2024 1 [place] Roxanne V [place] [id number] Roxanne V [place] 06/10/2024 1 [place] Roxanne V [place] [id number] Roxanne V [place] Notes Date Note Type Note Provider Name and Address Organization Details Recorded Time 11/14/2023 text/html 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 She had a few PAC and PVC, but her symptoms did not correlate with these.METOPROLOL 25 mg BID she did take this a few times before heart monitor was placed, whole pill made her sleepy so she took a half pill. She has not bee taking since heart monitor, wanted to discuss.Feels that she did not have any many palpitations when she was wearing it. She has had a virus since 11/04, went to walk in clinic 11/07, she was tested for COVID and flu, both were negative. She is better, but coughing a lot at night w/o relief. Does not drink any palpitations. MD [address], [place], [address], [facility] 11/14/2023 16:36:02 02/19/2024 text/html Pt, 33-F, hx. of anxiety, ibs, and [...] true or not. She reported she saw lead bi developer who guided she has environmental allergies, but [...] joining a non profit. [address], [place], [address], [facility]. 02/19/2024 11:00:13 03/10/2024 text/html Here for Annual Exam.Interval history form was reviewed, including comprehensive ROS form.ROS negative throughout with the exception as noted [...] slowly steadily increased over the last 5 years.No weight loss, energy and appetite are fine. [...] TSH. RITA QUIROGA MD [address], [place], [address], [facility] - [facility]. 03/10/2024 16:48:25 OBGyn Episode No OBEpisode recorded.
--- OUTSIDE RECORDS SUMMARY | 2024-10-15 02:07 | XMS_ITS | Encounter Summary ---
Author Organization [facility] Address [address] [place] [address] Care Team Providers Care Motion Study Engineer Name Role Phone Rita Quiroga MD Primary Care Provider [phone] Reason for Visit * Reason Comments New Patient Visit FBSE Skin Lesion Nose Encounter Details Date Type Department Care Team (Late st Contact Info) Description 04/23/2017 15:40 EDT Office Visit [facility] Dermatology 5th Floor [facility] [address] [place] [address] Symone Moore MD PhD [address] [facility], [address] [place] [phone] Niall Garcia MD [address] [place] [phone] Spider angioma (Primary Dx) Social History [...] 15:41 * Niall Garcia MD - 04/23/2017 1540 EDT Dermatology Resident Clinic Visit Note Chief [...] the resident's/fellow's note. Symone Moore MD Dermatology [facility] documented in this encounter Plan of Treatment Not on file documented as of this encounter Visit Diagnoses Diagnosis Spider angioma- Primary Nevus, non-neoplastic documented in this encounter Care Teams Motion Study Engineer Relationship Specialty Start Date End Date Rita Quiroga MD [address] [place] [phone] PCP - General 04/13/17 documented as of this encounter
--- OUTSIDE RECORDS SUMMARY | 2024-10-15 02:07 | XMS_ITS | Encounter Summary ---
Author Organization [facility] Address [address] [place] [address] Care Team Providers Care Commercial Hvac Technician Name Role Phone Rita Quiroga MD Primary Care Provider [phone] Reason for Visit * Reason Onset Date Comments Other 11/19/2017 Encounter Details Date Type Department Care Team ([facility] Contact Info) Description 11/19/[address] [facility] OBGYN Services - [facility] [address] [place] [address] Lucía Busch, RN Other Social History Tobacco Use Types [...] questions regarding Nexplanon. I called pt back. LM for her to call office back. documented in this encounter Plan of Treatment Not on file documented as of this encounter Visit Diagnoses Not on filedocumented in this encounter Care Teams Commercial Hvac Technician Relationship Specialty Start Date End Date Rita Quiroga MD [address] [place] [phone] PCP - General 04/13/17 documented as of this encounter
--- OUTSIDE RECORDS SUMMARY | 2024-10-15 02:07 | XMS_ITS | Referral Summary ---
Author Organization [facility] Address [address] [place] [address] Care Team Providers Care Certified Tower Climber Name Role Phone Rita Quiroga MD Primary Care Provider [phone] Encounters Date Type Department Care Team Description 10/14/2024 Lab Requisition [facility] Pathology & Laboratory [address] [address] Outr Resulting Lab, Provider 10/14/2024 Lab Requisition [facility] Pathology & Laboratory [address] [address] Outr Resulting Lab, Provider 10/14/2024 Lab Requisition [facility] Pathology & Laboratory [address] [address] Outr Resulting Lab, Provider 10/13/2024 Lab Requisition [facility] Pathology & Laboratory [address] [address] Outr Resulting Lab, Provider from Last 3 Months Allergies No known active allergies Medications escitalopram [...] disease 05/24/2009 Overview (07/10/2010): Since high school. Social History Tobacco Use [...] file Not on file Not on file Last Filed Vital Signs [...] on file Medical Devices Implanted Type Area Commercial Baking Teacher Device Identifier Shelf Expiration Date Model / [...] C Antibody Negative Negative 10/14/2024 22:59 EST [facility] Blood VENOUS BLOOD / Unknown 10/14/2024 15:00 EST 10/14/2024 21:16 EST us Provider Outr Resulting Lab CHEMISTRY & BLOOD GA S ORDERABLES Final Result [facility] [address] [place] [address] * HEPATITIS B SURFACE ANTIGEN (10/14/2024 15:00 EST) Hep B Surface Ag Negative Negative 10/14/2024 22:36 EST [facility] Blood VENOUS BLOOD / Unknown 10/14/2024 15:00 EST 10/14/2024 21:16 EST us Provider Outr Resulting Lab CHEMISTRY & BLOOD GA S ORDERABLES Final Result Performing Organization Address City/[facility]/ZIP Co de Phone Number [facility] [address] [place] [address] * HIV 1/2 ANTIGEN AND ANTIBODY, 4TH GENERATION (10/14/2024 15:00 EST) HIV 1 and 2 Antibody/p24 Antigen, 4th Generation Negative Negative 10/14/2024 23:05 EST [facility] Comment:If acute HIV-1 infec tion is suspected in a high risk patient, submit plasma specimen for HIV-1 RNA quantitation test. Blood VENOUS BLOOD / Unknown 10/14/2024 15:00 EST 10/14/2024 21:16 EST Narrative [facility] - 10/14/2024 23:05 EST Fourth Generation assay performed on the Siemens Mavizonaur XPT. us Provider Outr Resulting Lab IMMUNOLOGY AND SEROL OGY ORDERABLES Final Result Performing Organization Address [facility] Co de Phone Number [facility] [address] [place] [phone] * CHLAMYDIA/N. GONORRHOEAE AMPLIFIED NUCLEIC ACID (10/13/2024 10:20 EST) Neisseria gonorrhoeae Result Negative Negative 10/14/2024 12:16 EST [facility] Chlamydia trachomatis Result Negative Negative 10/14/2024 12:16 EST [facility] Swab VAGINAL STRUCTURE / Unknown 10/13/2024 10:20 EST 10/13/2024 17:12 EST us Provider Outr Resulting Lab MICROBIOLOGY - GENER AL ORDERABLES Final Result Performing Organization Address City/[facility]/ZIP Co de Phone Number [facility] [address] [place] [phone] from Last 3 Months Insurance Care Teams Certified Tower Climber Relationship Specialty Start Date End Date Rita Quiroga MD [address] [place] [phone] PCP - General 04/13/17
--- OUTSIDE RECORDS SUMMARY | 2024-10-15 02:07 | XMS_ITS | Encounter Summary ---
Author Organization [facility] Address [address] [place] [address] Care Team Providers Care Industrial Radiographer Name Role Phone Rita Quiroga MD Primary Care Provider [phone] Encounter Details Date Type Department Care Team (Late st Contact Info) Description 02/25/2023 Lab Requisition [facility] Pathology & Laboratory Medicine - [address] [address] Boo Viera MD [address] [place] [phone] Encounter for other general examination Social [...] explore management options, if applicable. 03/04/2023 16:02 [facility] Final Diagnosis A. SOFT TISSUE OF WRIST, LEFT DORSAL, MASS, EXCISION: - Ganglion cyst. 03/04/2023 16:02 [facility] Attestation There was significant resident/fellow involvement in the diagnostic evaluation of this case. By the signature below, the attending physician certifies that they have personally conducted a gross and/or microscopic examination of the described specimens and rendered or confirmed the above diagnosis. 03/04/2023 16:02 [facility] at 1602 Clinical History Left wrist pain 03/04/2023 16:02 [facility] Gross Description A. Received [...] is entirely submitted intact in A1. HAJA BARNETT(ASCP) 02/26/2023 10:57 03/04/2023 16:02 [facility] Resident/Ant w: Kierra Webb DO 03/04/2023 16:02 [facility] Performing Lab [facility] 03/04/2023 16:02 [facility] Scanned Images 03/04/2023 16:02 [facility] Tissue SOFT TISSUE / Unknown 02/25/2023 10:36 EDT 02/26/2023 9:05 EDT us Boo Viera MD PATHOLOGY ORDERABLES Final Res ult [facility] [address] [place] [address] documented in this encounter Visit Diagnoses Diagnosis Encounter for other general examination documented in this encounter Care Teams Industrial Radiographer Relationship Specialty Start Date End Date Rita Quiroga MD [address] [place] [phone] PCP - General 04/13/17 documented as of this encounter
--- OUTSIDE RECORDS SUMMARY | 2024-10-15 02:07 | XMS_ITS | Encounter Summary ---
Author Organization [facility] Address [address] [place] [address] Care Team Providers Care Wire Brusher Name Role Phone Rita Quiroga MD Primary Care Provider [phone] Encounter Details Date Type Department Care Team (Late Contact Info) Description 10/14/2024 Lab Requisition [facility] Pathology & Laboratory Medicine - [address] [address] Outr Resulting Lab, Provider Social History Tobacco [...] as of this encounter Plan of Treatment Pending Results Name Type Priority Associated Diagnoses Date /Time RUBELLA IGG ANTIBODY Lab Routine 10/01 15:00 EST VARICELLA IGG ANTIBODY Lab Routine 15:00 EST documented as of this encounter Visit Diagnoses Not on filedocumented in this encounter Care Teams Wire Brusher Relationship Specialty Start Date End Date Rita Quiroga MD [address] [place] [phone] PCP - General 04/13/17 documented as of this encounter
--- OUTSIDE RECORDS SUMMARY | 2024-10-15 02:07 | XMS_ITS | Encounter Summary ---
Author Organization [facility] Address [address] [place] [address] Care Team Providers Care Soup Person Name Role Phone Rita Quiroga MD Primary Care Provider [phone] Reason for Visit * Reason Onset Date Comments Contraception 11/21/2017 Encounter Details Date Type Department Care Team ([facility] Contact Info) Description 11/21/2017 Telephone [facility] [place] [facility] OBGYN Services - [address] [address] Christy Stevens, SANDRO Contraception Social History Tobacco Use Types Packs/Day [...] Stevens RN - 11/21/2017 1301 EST Roxanne M rRTCB has questions about Nexplanon. LV for Roxanne, advised returning her call. documented in this encounter Plan of Treatment Not on file documented as of this encounter Visit Diagnoses Not on filedocumented in this encounter Care Teams Soup Person Relationship Specialty Start Date End Date Rita Quiroga MD [address] [place] [phone] PCP - General 04/13/17 documented as of this encounter
--- OUTSIDE RECORDS SUMMARY | 2024-10-15 02:07 | XMS_ITS | Encounter Summary ---
Author Organization [facility] Address [address] [place] [address] Care Team Providers Care Non Licensed Nuclear Equipment Operator Name Role Phone Rita Quiroga MD Primary Care Provider [phone] Reason for Visit * Reason Onset Date Comments Vaginal Bleeding 08/07/2017 Encounter Details Date Type Department Care Team ([facility] Contact Info) Description 08/07/2017 Telephone [facility] - [address] [address] Lucía Busch RN Vaginal Bleeding Social History [...] of this encounter Ordered Prescriptions Prescription Sig Dispense Quantity Refills Last Filled Start Date End Date levonorgestrel-ethi nyl estradiol (AVIANE, ALESSE, LESSINA) 0.1-20 mg-mcg per [...] appt. Will ask Dr. Herzog. Pt uses [employer] [facility]. OK to leave a detailed message on pt's phone if needed. documented in this encounter Plan of Treatment Not on file documented as of this encounter Visit Diagnoses Not on filedocumented in this encounter Care Teams Non Licensed Nuclear Equipment Operator Relationship Specialty Start Date End Date Rita Quiroga MD [address] [place] [phone] PCP - General 04/13/17 documented as of this encounter
--- OUTSIDE RECORDS SUMMARY | 2024-10-15 02:08 | XMS_ITS | Encounter Summary ---
Author Organization [facility] Address [address] [place] [address] Care Team Providers Care [employer] Principal Name Role Phone Phyllis Vega MD Primary Care Provider [phone] Encounter Details Date Type Department Care Team (Late st Contact Info) Description 01/25/2010 [facility]YN Services [address] [address] Phyllis Vega MD [address] [place] [phone] Social History Tobacco Use Types Packs/Day Years Used Date Smoking Tobacco: Never Assessed Comments Unknown Sex and Gender Information Value Date Recorded Sex Assigned at Not on file Legal Sex Female 18:44 EST Gender Identity Not on file Sexual Orientation Not on file documented as of this encounter Plan of Treatment Not on file documented as of this encounter Visit Diagnoses Not on filedocumented in this encounter Care Teams [employer] Principal Relationship Specialty Start Date End Date Phyllis Vega MD [address] [place] [phone] PCP - General 03/24/09 04/12/17 documented as of this encounter
--- OUTSIDE RECORDS SUMMARY | 2024-10-15 02:08 | XMS_ITS | Encounter Summary ---
Author Organization [facility] Address [address] [place] [address] Care Team Providers Care X Ray Operator Name Role Phone Phyllis Vega MD [...] Info) Description 10/30/2011 11:00 EST Office Visit [facility] Ophthalmology - [address] [address] Daljit Dyer MD [address] [facility], [address] [place] [address] Social History Tobacco Use Types [...] Applanation Time: 11:45 Wearing Rx Sphere Cylinder [place] Right +0.75 +3.00 095 Left -0.25 +0.25 [...] to call if change. PLAN: Test Performed: [facility] 24-2 Indications for test: photopsias/ocular migraine Results/Findings: WNL Plan: FU prn. documented in this encounter Miscellaneous Notes * Scanned Note-Null - Head Wrestling Coach, Scan - 10/30/2011 1513 EST documented in [...] may reflect changes made after this encounter. Multivitamins with Minerals Tab Take 1 Tab [...] eye Left eye AO PIP 14 Stereo Fly: + Circles: 08/09 Lan src. Slit Lamp Exam Right eye Left eye Lids/Lashes Rosacea Rosacea Conjunctiva/Sclera No LG Stain No LG Stain Cornea No Stain, TBUT6 No Stain, TBUT5 Anterior Chamber Deep and quiet Deep and quiet Iris No TI No TI Wearing Rx Sphere Cylinder [place] Right eye +0.75 +3.00 095 Left eye -0.25 +0.25 100 Age: 4yrs Type: Reading Patient states using glasses mainly for reading. Care Teams X Ray Operator Relationship Specialty Start Date End Date Phyllis Vega MD [address] [place] [phone] PCP - General 03/24/09 04/12/17 documented as of this encounter
--- OUTSIDE RECORDS SUMMARY | 2024-10-15 02:08 | XMS_ITS | Encounter Summary ---
Author Organization [facility] Address [address] [place] [address] Care Team Providers Care Platform Operations Director Name Role Phone Rita Quiroga MD Primary Care Provider [phone] Reason for Visit * Reason Onset Date Comments Ectopic 04/21/2017 Encounter Details Date Type Department Care Team ([facility] Contact Info) Description 04/21/2017 Telephone [facility] OBGYN Services - [address] [address] Leni Delgado RN Ectopic Social History Tobacco [...] Preg 33(H) <5 mIU/ml 04/23/2017 15:36 EDT [facility] Comment: Reference Range: Negative = <5 Indeterminate = 5-25 recommend repeat in 48 hours. Positive = >25 Blood specimen (specimen) BLOOD SPECIMEN / Unknown 04/23/2017 11:22 EDT 04/23/2017 12:58 EDT us Jenifer Baker MD CHEMISTRY & BLOOD GAS OR DERABLES Final Result [facility] [address] [place] [address] documented in this encounter Visit Diagnoses Diagnosis Tubal without intrauterine - Primary documented in this encounter Care Teams Platform Operations Director Relationship Specialty Start Date End Date Rita Quiroga MD [address] [place] [phone] PCP - General 04/13/17 documented as of this encounter
--- OUTSIDE RECORDS SUMMARY | 2024-10-15 02:08 | XMS_ITS | Encounter Summary ---
Author Organization [facility] Address [address] [place] [address] Care Team Providers Care Prototype Engineer Manager Name Role Phone Phyllis Vega MD Primary Care Provider [phone] Reason for Visit * Reason Comments Migraine Ref from Dr. Sal and [facility] office. Ocular migraine, Myopia, Vitreous [...] Info) Description 06/12/2011 8:00 EDT Office Visit [facility] Ophthalmology - [address] [address] Daljit Dyer MD [address] [facility], Level 5 [place] [address] Social History Tobacco Use Types [...] - 06/20/2011 0803 EDT DIVISION OF OPHTHALMOLOGY [facility]ST[facility] June 12, 2011 Sixto Lopes MD [facility] - Ophthalmology [address] [place] [address] Lopes: Roxanne Beltran was examined [...] Daljit Dyer MD - GIORGI Job ID: SM Doc ID: [id number] Ext Doc ID: [id number] cc: MD Phyllis Bal MD * Daljit Dyer MD - 06/12/2011 0947 EDT Base Ophthalmology Exam Visual Acuity Right Left Dist sc 20/20 20/20 Near cc J1+ J1+ Method: Snellen - Linear Correction: Glasses Tonometry Right Left Pressure 13 13 Method: Applanation Time: 8:56 Wearing Rx Sphere Cylinder [place] Right +1.25 +2.50 92 Left -0.25 +0.25 98 Age: 5 yrs Type: SINGLE Manifest Refraction (Auto) Sphere Cylinder [place] Dist Right +1.25 +2.00 91 20/15 Left -1.25 +0.25 111 20/15 Stereo Circles: 50 secs Color Right Left Color 14 14 Method: AOPIP Dilation Both eyes: PAREMYD @ [...] he is personally performing the service. BENY JESSICA ROCHA 06/12/2011 9:46 This note has been dictated and scanned. Test Performed: [facility] 24-2 Indications for test: Ocular migraine Results/Findings: WNL each eye Plan: FU prn documented in this encounter Miscellaneous Notes * Scanned Note-Null - Eliel, Assembly Operator - 06/14/2011 1131 EDT documented in this encounter Plan of Treatment Not on file documented as of this encounter Visit Diagnoses Diagnosis Ocular migraine- Primary Variants of migraine, not elsewhere classified, without mention of intractable migraine without mention of status migrainosus Myopia Vitreous syneresis Other vitreous opacities documented in this encounter Historical Medications * This list may reflect changes made after this encounter. FAMOTIDINE (PEPCID ORAL) Take by mouth. 04/13/2017 added in this encounter Eye Exam [...] Normal Color Right eye Left eye AOPIP 14/14 1314 Stereo Circles: 50 secs Slit Lamp Exam [...] in both eyes Wearing Rx Sphere Cylinder [place] Right eye +1.25 +2.50 92 Left eye -0.25 +0.25 98 Age: 5 yrs Type: SINGLE Manifest Refraction (Auto) Sphere Cylinder [place] Dist [place] Right eye +1.25 +2.00 91 20/15 Left eye -1.25 +0.25 111 20/15 Care Teams Prototype Engineer Manager Relationship Specialty Start Date End Date Phyllis Vega MD [address] [place] [address] PCP - General 03/24/09 04/12/17 documented as of this encounter
--- OUTSIDE RECORDS SUMMARY | 2024-10-15 02:08 | XMS_ITS | Encounter Summary ---
Author Organization [facility] Address [address] [place] [address] Care Team Providers Care Diesel Engine Assembler Name Role Phone Phyllis Vega MD Primary Care Provider [phone] Reason for Visit * Reason Comments Eye Flashes And/Or Floaters Increase in Floater, both eyes (blue spots). Worse if Pt is stressed out. Stopped Celexa last summer. No flashes or eyepain. Vision stable, no changes. Encounter Details Date Type Department Care Team (Late st Contact Info) Description 12/24/2011 8:[address] [facility] Ophthalmology - [address] [address] Daljit Dyer MD [address] [place] [address], [address] 5 [place] [address] Social History Tobacco Use Types [...] Refills Last Filled Start Date End Date DIAZepam (VALIUM) 5 mg tablet Take 1 Tab by mouth 2 times daily for 1 day. Take one tablet at instruction of MRI staff. May repeat times one 2 Tab 0 12/24/2011 2 documented in this encounter Progress Notes * Daljit Dyer MD - 12/24/20112132 EST DIVISION OF OPHTHALMOLOGY SWATCH CLERK [facility] December 24, 2011 Phyllis Vega MD [address] [phone] Vega: Roxanne Beltran was reexamined [...] MD - Job ID: SM Doc ID: [id number] [facility] Doc ID: [id number] cc: Phyllis Vega MD * Daljit Dyer MD - 12/24/2011 0956 EST This note has been dictated and [...] Applanation Time: 9:[address] Sp[address] C[address] Right +0.75 +3.00 095 Left -0.25 +0.25 100 Type: Reading Wearing Rx #[address] Right +1.25 +2.50 91 Left -0.25 +0.25 [...] syneresis Unspecified chorioretinal scar PLAN: Test Performed: [facility] Indications for test: photopsia/ headache Results/Findings: WNL each eye Plan: MRI head documented in this encounter Miscellaneous Notes * Scanned Note-Null - Pump Stitcher, Scan - 12/25/2011 0954 EST documented in [...] abnormality. Daljit Dyer MD IMG MRI ORDERABLES Final Re sult * CREATININE (12/30/2011 13:42 EST) Creatinine 0.71 0.52 - 1.04 mg/dl [facility] GFR, Calculated >60 >60 ml/min/1.7 3m2 [facility] Blood specimen (specimen) 12/30/2011 13:42 EST 12/30/2011 14:26 EST Daljit Dyer MD CHEMISTRY & BLOOD GAS ORDER DALLIN Final Result Performing Organization Address [facility] Co de Phone Number [facility] [address] [place] [address] * BUN (12/30/2011 13:42 EST) BUN 13 10 - 26 mg/dl [facility] Blood specimen (specimen) 12/30/2011 13:42 EST 12/30/2011 14:26 EST Daljit Dyer MD CHEMISTRY & BLOOD GAS ORDER DALLIN Final Result Performing Organization Address [facility] Co de Phone Number [facility] [address] [place] [address] documented in this encounter Visit Diagnoses Diagnosis [...] Color Right eye Left eye AO PIP 11/13 Stereo Lan secs Slit Lamp Exam Right [...] syne resis Wearing Rx #[address] Right eye +0.75 +3.00 095 Left eye -0.25 +0.25 100 Type: Reading Wearing Rx #[address] Right eye +1.25 +2.50 91 Left eye -0.25 +0.25 96 Type: SVL Manifest Refraction Sphere Cylinder Right eye -0.25 clearer Left eye -0.25 clearer Care Teams Diesel Engine Assembler Relationship Specialty Start Date End Date Phyllis Vega MD [address] [place] [phone] PCP - General 03/24/09 04/12/17 documented as of this encounter
--- OUTSIDE RECORDS SUMMARY | 2024-10-15 02:08 | XMS_ITS | Encounter Summary ---
Author Organization [facility] Address [address] [place] [address] Care Team Providers Care Wheat Cleaner Name Role Phone Rita Quiroga MD Primary Care Provider [phone] Reason for Visit * Reason Comments Ectopic seen at [facility], told she might have an ectopic prgnancy. Here with abdominal pain Encounter Details Date Type Department Care Team (Late st Contact Info) Description 04/13/2017 22:03 EDT - 04/14/2017 0:35 EDT Emergency [facility] Emergency Department - [place] [address] [place] [address] Vic Lisa MD Emergency, MD Saman Less [...] Notes * Yaneth Floyd RN - 04/13/2017 1109 EDT Pt to U/S via stretcher with tech. * Vic Lisa MD - 04/13/2017 2251 EDT DOS: 04/13/2017 Chief Complaint Patient presents [...] by the patient and medical records. No site interpreter was used. Review of Systems Review of [...] 2.9 cm left ovarian cyst, read by residential field manager. There is a hyperechoic shadowing structure present [...] above interpretation and agree with the findings. us Vic Lisa MD IMG US ORDERABLES Final Res ult documented in this encounter Visit Diagnoses Diagnosis [...] may reflect changes made after this encounter. fexofenadine (GRIS) 60 mg tablet Take 60 mg by mouth 2 times daily. ranitidine (ZANTAC) 150 mg tablet Take 150 mg by mouth 2 times daily. escitalopram oxalate (LEXAPRO) 10 mg tablet Take 10 mg by mouth daily. added in this encounter Care Teams Wheat Cleaner Relationship Specialty Start Date End Date Rita Quiroga MD [address] [place] [phone] PCP - General 04/13/17 documented as of this encounter
--- OUTSIDE RECORDS SUMMARY | 2024-10-15 02:08 | XMS_ITS | Encounter Summary ---
Author Organization Health system Address [address] [place] [address] Care Team Providers Care Assembler Bicycle Name Role Phone Rita Quiroga MD Primary Care Provider [phone] Encounter Details Date Type Department Care Team (Late st Contact Info) Description 04/16/2017 9:40 EDT Initial consult [facility] OBGYN Services - [address] [address] Jenifer Baker MD [address] [place] [address], [address] [place] [address] Aracely Zuleta MD Tubal without [...] Notes * Jenifer Baker MD - 04/16/2017 0940 EDT CC: [facility] by [facility] [...] in [place] WBC/Hgb/Hct/Plts: 7.89/11.8/35.6/287 (04/16 837) BUN/Cr/glu/ALT/AST/amyl/lip: 8/0.61/--//18/--/-- (04/16 0837) [facility] [...] MD * Leni Delgado RN - 04/16/2017 0940 EDT I. Patient here for Methotrexate Injection [...] limitations and signs/symptoms to watch for. Provided BARKING MACHINE FEEDER triage and on-call numbers, aware to call with any problems, issues or additional questions. Roxanne verbalized understand and agreement to this plan. She has no other questions at this time. documented in this encounter Procedure Notes * Jenifer Baker MD - 04/16/2017 0940 EDT Procedure: Procedures Procedure Note: IUD Arm [...] 2016 documented in this encounter Care Teams Assembler Bicycle Relationship Specialty Start Date End Date Rita Quiroga MD [address] [place] [phone] PCP - General 04/13/17 documented as of this encounter
--- OUTSIDE RECORDS SUMMARY | 2024-10-15 02:08 | XMS_ITS | Encounter Summary ---
Author Organization [facility] Address [address] [place] [address] Care Team Providers Care Time Clock Repairer Name Role Phone Rita Quiroga MD Primary Care Provider [phone] Encounter Details Date Type Department Care Team (Late st Contact Info) Description 04/13/2017 Orders Only Non [facility] Ancillary Services Christine Michelle, SUPERVISOR MACHINE WORKERS [address] [place] [address] Other specified related conditions, first [...] Preg 287(H) <5 mIU/ml 04/15/2017 11:32 EDT [facility] Comment: Reference Range: Negative = <5 Indeterminate = 5-25 recommend repeat in 48 hours. Positive = >25 Blood specimen (specimen) BLOOD SPECIMEN / Unknown 04/15/2017 10:03 EDT 04/15/2017 10:45 EDT us Christine Michelle SUPERVISOR MACHINE WORKERS CHEMISTRY & BLOOD GAS ORDER DALLIN Final Result [facility] [address] [place] [address] documented in this encounter Visit Diagnoses Diagnosis Other specified related conditions, first trimester- Primary documented in this encounter Care Teams Time Clock Repairer Relationship Specialty Start Date End Date Rita Quiroga MD [address] [place] [phone] PCP - General 04/13/17 documented as of this encounter
--- OUTSIDE RECORDS SUMMARY | 2024-10-15 02:08 | XMS_ITS | Encounter Summary ---
Author Organization [facility] Address [address] [place] [address] Care Team Providers Care Advanced Practice Provider Name Role Phone Rita Quiroga MD Primary Care Provider [phone] Reason for Visit * Reason Onset Date Comments Labs Only 04/17/2017 Encounter Details Date Type Department Care Team ([facility] Contact Info) Description 04/17/2017 Orders Only [facility] OBGYN Services - [address] [address] Leni Delgado RN Tubal without intrauterine (Primary [...] Progress Notes * Leni Delgado RN - 04/17/2017 0955 EDT Ordered placed for day 4 beta hcg, due Friday04/20/17. documented in this encounter Plan of Treatment Not on file documented as of this encounter Results * (ABNORMAL) HCG FOR (04/20/2017 10:43 EDT) Quant Beta HCG, Preg 63(H) <5 mIU/ml 04/20/2017 13:22 EDT [facility] Comment: Reference Range: Negative = <5 Indeterminate = 5-25 recommend repeat in 48 hours. Positive = >25 Blood specimen (specimen) BLOOD SPECIMEN / Unknown 04/20/2017 10:43 EDT 04/20/2017 12:32 EDT us Jenifer Baker MD CHEMISTRY & BLOOD GAS OR DERABLES Final Result [facility] [address] [place] [address] documented in this encounter Visit Diagnoses Diagnosis Tubal without intrauterine - Primary documented in this encounter Care Teams Advanced Practice Provider Relationship Specialty Start Date End Date Rita Quiroga MD [address] [place] [phone] PCP - General 04/13/17 documented as of this encounter
--- OUTSIDE RECORDS SUMMARY | 2024-10-15 02:08 | XMS_ITS | Encounter Summary ---
Author Organization [facility] Address [address] [place] [address] Care Team Providers Care Fabric Cutter Name Role Phone Phyllis Vega MD Primary Care Provider [phone] Encounter Details Date Type Department Care Team (Late Contact Info) Description 12/30/2011 Phlebotomy Only [address] [address] Sports Recruiter, Outpatient Ocular migraine; Headache; Photopsia Social History [...] 0.71 0.52 - 1.04 mg/dl [facility] GFR, Calculated >60 >60 ml/min/1.7 3m2 [facility] Blood specimen (specimen) 12/30/2011 13:42 EST 12/30/2011 14:26 EST Daljit Dyer MD CHEMISTRY & BLOOD GAS ORDER DALLIN Final Result Performing Organization Address [facility] Co de Phone Number [facility] [address] [place] [address] * BUN (12/30/2011 13:42 EST) BUN 13 10 - 26 mg/dl [facility] Blood specimen (specimen) 12/30/2011 13:42 EST 12/30/2011 14:26 EST Daljit Dyer MD CHEMISTRY & BLOOD GAS ORDER DALLIN Final Result Performing Organization Address [facility] de Phone Number [facility] [address] [place] [address] documented in this encounter Visit Diagnoses Diagnosis Ocular migraine Variants of migraine, not elsewhere classified, without mention of intractable migraine without mention of status migrainosus Headache(784.0) Headache Photopsia Other visual distortions and entoptic phenomena documented in this encounter Care Teams Fabric Cutter Relationship Specialty Start Date End Date Phyllis Vega MD [address] [place] [phone] PCP - General 03/24/09 04/12/17 documented as of this encounter
--- OUTSIDE RECORDS SUMMARY | 2024-10-15 02:08 | XMS_ITS | Encounter Summary ---
Author Organization [facility] Address [address] [place] [address] Care Team Providers Care Geometry Professor Name Role Phone Phyllis Vega MD Primary Care Provider [phone] Encounter Details Date Type Department Care Team ([facility] Contact Info) Description 06/11/2010 12:51 EDT - 06/11/2010 23:59 EDT Hospital Encounter [facility] [address] [place] [address] JeanieMauri MD [address] [place] [address] [address] [place] [address] Discharge Disposition: Home or Self Care Social History Tobacco Use Types Packs/Day Years Used Date Smoking Tobacco: Never Alcohol Use Standard Drinks/Week Comments No 0 (1 standard drink = 0.6 oz pur e alcohol) Comments Unknown Sex and Gender Information Value Date Recorded Sex Assigned at Not on file Legal Sex Female 18:44 EST Gender Identity Not on file Sexual Orientation Not on file documented as of this encounter Medications at Time of Discharge citalopram (CELEXA) 20 mg tablet Take 20 [...] 119 82 - 453 mg/dl [facility] Blood specimen (specimen) 06/11/2010 13:10 EDT 06/11/2010 13:12 EDT us Mauri Ware MD CHEMISTRY & BLOOD GAS O RDERABLES Final Result [facility] [address] [place] [address] * TISSUE TRANSGLUTAMINASE ANTIBODY (06/11/2010 13:10 EDT) Tissue Transglutaminase Ab 1.28 <15.01 U/ml [facility] Blood specimen (specimen) 06/11/2010 13:10 EDT 06/11/2010 13:12 EDT Mauri Ware MD IMMUNOLOGY AND SEROLOGY ORDERABLES Final Result Performing Organization Address [facility] Co de Phone Number [facility] [address] [place] [address] * LIVER FUNCTION TESTS (06/11/2010 13:10 EDT) [facility] Albumin 4.9 3.4 - 4.9 g/dl [facility] Total Protein 7.5 6.5 - 8.3 g/dl [facility] Total Alkaline Phosphatase 80 38 - 126 U/L [facility] ALT 23 9 - 52 U/L [facility] AST 27 15 - 46 U/L [facility] Unconjugated Bilirubin 0.6 0.1 - 1.1 mg/dl [facility] Conjugated Bilirubin 0.0 0.0 - 0.3 mg/dl [facility] Bilirubin, Total 0.5 0.2 - 1.3 mg/dl [facility] Blood specimen (specimen) 06/11/2010 13:10 EDT 06/11/2010 13:12 EDT us Mauri Ware MD CHEMISTRY & BLOOD GAS O RDERABLES Final Result Performing Organization Address [facility] Co de Phone Number [facility] [address] [place] [address] * (ABNORMAL) FERRITIN (06/11/2010 13:10 EDT) [facility] Ferritin 5(L) 10 - 291 ng/mL [facility] Blood specimen (specimen) 06/11/2010 13:10 EDT 06/11/2010 13:12 EDT us Mauri Ware MD CHEMISTRY & BLOOD GAS O RDERABLES Final Result Performing Organization Address City/[facility] Co de Phone Number [facility] [address] [place] [address] * (ABNORMAL) IBC (06/11/2010 13:10 EDT) [facility] TIBC 554(H) 265 - 497 ug/dl [facility] Blood specimen (specimen) 06/11/2010 13:10 EDT 06/11/2010 13:12 EDT us Mauri Ware MD CHEMISTRY & BLOOD GAS O RDERABLES Final Result Performing Organization Address [facility] de Phone Number [facility] [address] [place] [address] * IRON (06/11/2010 13:10 EDT) Iron 62 60 - 180 ug/dl [facility] Blood specimen (specimen) 06/11/2010 13:10 EDT 06/11/2010 13:12 EDT us Mauri Ware MD CHEMISTRY & BLOOD GAS O RDERABLES Final Result Performing Organization Address [facility] Phone Number [facility] [address] [place] [address] * (ABNORMAL) HEMAGRAM (06/11/2010 13:10 EDT) WBC 6.59 4.0 - 12.4 K/cmm [facility] RBC 3.93 3.86 - 5.04 M/cmm [facility] Hemoglobin 10.5(L) 11.6 - 15.2 gm/dl [facility] HCT 31.2(L) 34.9 - 44.4 % [facility] MCV 79(L) 81 - 98 fl [facility] MCH 26.8 26.7 - 33.3 pg [facility] MCHC 33.8 32.1 - 35.9 gm/dl [facility] PLT 222 141 - 320 K/cmm [facility] RDW-CV 16.1(H) 11.7 - 14.6 % [facility] Blood specimen (specimen) 06/11/2010 13:10 EDT 06/11/2010 13:12 EDT us Mauri Ware MD HEMATOLOGY & PF4 ORDERA BLES Final Result Performing Organization Address [facility]/State/ZIP Co de Phone Number [facility] [address] [place] [address] documented in this encounter Visit Diagnoses Not on filedocumented in this encounter Care Teams Geometry Professor Relationship Specialty Start Date End Date Phyllis Vega MD [address] [place] [phone] PCP - General 03/24/09 04/12/17 documented as of this encounter
--- OUTSIDE RECORDS SUMMARY | 2024-10-15 02:08 | XMS_ITS | Encounter Summary ---
Author Organization [facility] Address [address] [place] [address] Care Team Providers Care Coal Pulverizer Operator Name Role Phone Phyllis Vega MD Primary Care Provider [phone] Encounter Details Date Type Department Care Team (Late st Contact Info) Description 12/30/2011 13:31 EST - 12/30/2011 23:59 EST Hospital Encounter [facility] [address] [place] [address] Daljit Dyer MD 111 [facility], [facility] [address] [place] [address] Discharge Disposition: Home or Self [...] 04/13/2017 FAMOTIDINE (PEPCID ORAL) Take by mouth. 04/13/2017 ibuprofen 200 mg Cap Take 200 mg by mouth daily as needed. 04/13/2017 Multivitamins with Minerals Tab Take 1 Tab by mouth daily. 04/13/2017 omeprazole (PRILOSEC) 20 mg capsule Take 20 mg by mouth daily. 04/13/2017 documented as of this encounter Discharge Disposition Disposition Code Departure Means Destination Home or Self Halfway documented in this encounter Plan of Treatment Not on file documented as of this encounter Visit Diagnoses Not on filedocumented in this encounter Care Teams Coal Pulverizer Operator Relationship Specialty Start Date End Date Phyllis Vega MD [address] [place] [phone] PCP - General 03/24/09 04/12/17 documented as of this encounter
--- OUTSIDE RECORDS SUMMARY | 2024-10-15 02:08 | XMS_ITS | Encounter Summary ---
Author Organization [facility] Address [address] [place] [address] Care Team Providers Care Manganese Heater Name Role Phone Unavailable Primary Care Provider Unavailabl e Encounter Details Date Type Department Care Team ([facility] Contact Info) Description 12/14/2008 9:45 EST Hospital Encounter [facility] [address] [place] [address] Unknown, Provider, Social History Tobacco Use Types [...]
--- OUTSIDE RECORDS SUMMARY | 2024-10-15 02:08 | XMS_ITS | Encounter Summary ---
Author Organization [facility] Address [address] [place] [address] Care Team Providers Care Healthcare Architect Name Role Phone Rita Quiroga MD Primary Care Provider [phone] Encounter Details Date Type Department Care Team (Late st Contact Info) Description 04/20/2017 10:33 EDT - 04/20/2017 23:59 EDT Hospital Encounter [address] [address] Jenifer Baker MD [address] [facility], [facility] [address] [place] [address] Discharge Disposition: Home or Self [...] on filedocumented in this encounter Care Teams Healthcare Architect Relationship Specialty Start Date End Date Rita Quiroga MD [address] [place] [phone] PCP - General 04/13/17 documented as of this encounter
--- OUTSIDE RECORDS SUMMARY | 2024-10-15 02:08 | XMS_ITS | Encounter Summary ---
Author Organization [facility] Address [address] [place] [address] Care Team Providers Care Office Spec Name Role Phone Phyllis Vega MD Primary Care Provider [phone] Encounter Details Date Type Department Care Team ([facility] Contact Info) Description 10/20/2013 12:56 EST - 10/20/2013 23:59 EST Hospital Encounter [facility] Center - Other [address] [place] [address] Nam Winslow MD 111 [facility], Level [address] [place] [address] Discharge Disposition: Home or Self [...] on filedocumented in this encounter Care Teams Office Spec Relationship Specialty Start Date End Date Phyllis Vega MD [address] [place] [phone] PCP - General 03/24/09 04/12/17 documented as of this encounter
--- OUTSIDE RECORDS SUMMARY | 2024-10-15 02:08 | XMS_ITS | Encounter Summary ---
Author Organization [facility] Address [address] [place] [address] Care Team Providers Care Administrative Services Officer Name Role Phone Phyllis Vega MD Primary Care Provider [phone] Encounter Details Date Type Department Care Team (Late Contact Info) Description 08/11/2015 Results Only [facility] [phone] Ace Melgoza, [address] [place] [address] Social History Tobacco Use Types Packs/Day Years [...] when reading/interpret ing unformatted reports. Name: ? ROXANNE PERES V ? Accession #: ? [id number] ? : ? 1990 (Age: 25) ??F [...] moderate amount of cytoplasm. ??The melanocytes show embedded software design engineer maturation. ??(Dr. Sales)/joslyn Document reviewed and electronically signed by: SHIRLEY [...] 0.2 cm).). Bisected and submitted in 1. 08/14/2015 7:28 PM End of Report [facility] 08/11/2015 17:4 7 EDT 08/14/2015 17:47 EDT us Ace Melgoza DO PATHOLOGY ORDERABLES Fi nal Result Performing Organization Address City/State/[place] Co de Phone Number [facility] [address] [place] [address] documented in this encounter Visit Diagnoses Not on filedocumented in this encounter Care Teams Administrative Services Officer Relationship Specialty Start Date End Date Phyllis Vega MD [address] [place] [phone] PCP - General 03/24/09 04/12/17 documented as of this encounter
--- OUTSIDE RECORDS SUMMARY | 2024-10-15 02:08 | XMS_ITS | Encounter Summary ---
Author Organization [facility] Address [address] [place] [address] Care Team Providers Care Field Property Loss Specialist Name Role Phone Phyllis Vega MD Primary Care Provider [phone] Encounter Details Date Type Department Care Team (Late Contact Info) Description 07/27/2010 Results Only [facility] Gastroenterology - [facility] [address] [place] [address] [facility] MD [address] [place] [address] [address] [place] [address] Social History Tobacco Use Types [...] JA, ROXANNE V ? Accession #: ? [id number] ? : ? 1990 (Age: 20) ??F ? Collect Date: ? 07/27/2010 ? Location: ? [facility] ? Receive Date: ? 07/28/2010 ? Provider: VENKATESH S ANDREA MD ? Copy to: PHYLLIS M PATNO [...] Anemia ? Gross Description: ? [facility] [place], Roxanne and biopsies ?? of duodenum are two pink-jameson, irregular soft tissues, each 0.3 x 0.2 x 0.2 cm, submitted in toto in a single cassette. (Liliana Suarez)/mpl ? End of Report ? [facility] 07/27/2010 07/28/2010 9:3 9 EDT us Venkatesh Ware MD PATHOLOGY ORDERABLES Fi nal Result Performing Organization Address City/State/[facility] Co de Phone Number [facility] [address] [place] [address] documented in this encounter Visit Diagnoses Not on filedocumented in this encounter Care Teams Field Property Loss Specialist Relationship Specialty Start Date End Date Phyllis Vega MD [address] [place] [phone] PCP - General 03/24/09 04/12/17 documented as of this encounter
--- OUTSIDE RECORDS SUMMARY | 2024-10-15 02:08 | XMS_ITS | Encounter Summary ---
Author Organization [facility] Address [address] [place] [address] Care Team Providers Care Metallurgist Process Name Role Phone Rita Quiroga MD Primary Care Provider [phone] Encounter Details Date Type Department Care Team (Late st Contact Info) Description 04/16/2017 Phlebotomy Only [address] [address] Jingle Writer, Outpatient of unknown anatomic location (Primary Dx) [...] - 26 mg/dl 04/16/2017 9:38 EDT [facility] Blood specimen (specimen) BLOOD SPECIMEN / Unknown 04/16/2017 8:37 EDT 04/16/2017 8:53 EDT Jenifer Baker MD CHEMISTRY & BLOOD GAS OR DERABLES Final Result Performing Organization Address [facility] Co de Phone Number [facility] [address] [place] [address] * CREATININE (04/16/2017 8:37 EDT) Creatinine 0.61 0.52 - 1.04 mg/dl 04/16/2017 9:38 EDT [facility] GFR, Calculated 124 >60 ml/min/1.7 3m2 04/16/2017 9:38 EDT [facility] Comment: eGFR calculated using CKD-EPI equation for non Americans. Multiply eGFR by 1.16 for Americans. Blood specimen (specimen) BLOOD SPECIMEN / Unknown 04/16/2017 8:37 EDT 04/16/2017 8:53 EDT us Jenifer Baker MD CHEMISTRY & BLOOD GAS OR DERABLES Final Result Performing Organization Address City/[facility]/ZIP Co de Phone Number [facility] [address] [place] [address] * AST (04/16/2017 8:37 EDT) AST 18 15 - 46 U/L 04/16/2017 9:38 EDT [facility] Blood specimen (specimen) BLOOD SPECIMEN / Unknown 04/16/2017 8:37 EDT 04/16/2017 8:53 EDT us Jenifer Baker MD CHEMISTRY & BLOOD GAS OR DERABLES Final Result Performing Organization Address City/[facility]/ZIP Co de Phone Number [facility] [address] [place] [address] * ALT (04/16/2017 8:37 EDT) ALT 20 <53 U/L 04/16/2017 9:38 EDT [facility] Blood specimen (specimen) BLOOD SPECIMEN / Unknown 04/16/2017 8:37 EDT 04/16/2017 8:53 EDT us Jenifer Baker MD CHEMISTRY & BLOOD GAS OR DERABLES Final Result Performing Organization Address [facility] Co de Phone Number [facility] [address] [place] [address] * (ABNORMAL) HEMAGRAM (04/16/2017 8:37 EDT) WBC 7.89 4.0 - 12.4 K/cmm 04/16/2017 9:16 [facility] RBC 4.29 3.86 - 5.04 M/cmm 04/16/2017 9:16 [facility] Hemoglobin 11.8 11.6 - 15.2 gm/dl 04/16/2017 9:16 [facility] HCT 35.6 34.9 - 44.4 % 04/16/2017 9:16 [facility] MCV 83 81 - 98 fl 04/16/2017 9:16 [facility] MCH 27.5 26.7 - 33.3 pg 04/16/2017 9:16 [facility] MCHC 33.1 32.1 - 35.9 gm/dl 04/16/2017 9:16 [facility] RDW-CV 15.1(H) <14.7 % 04/16/2017 9:16 [facility] RDW-SD 46.3 <50.4 or 04/16/2017 9:16 EDT [facility] PLT 287 141 - 377 K/cmm 04/16/2017 9:16 EDT [facility] MPV 11.0 9.5 - 12.7 fl 04/16/2017 9:16 EDT [facility] Blood specimen (specimen) BLOOD SPECIMEN / Unknown 04/16/2017 8:37 EDT 04/16/2017 8:53 EDT us Jenifer Baker MD HEMATOLOGY & PF4 ORDERAB LES Final Result [facility] [address] [place] [address] * (ABNORMAL) HCG FOR (04/16/2017 8:37 EDT) Quant Beta HCG, Preg 317(H) <5 mIU/ml 04/16/2017 9:38 EDT [facility] Comment: Reference Range: Negative = <5 Indeterminate = 5-25 recommend repeat in 48 hours. Positive = >25 Blood specimen (specimen) BLOOD SPECIMEN / Unknown 04/16/2017 8:37 EDT 04/16/2017 8:53 EDT us Jenifer Baker MD CHEMISTRY & BLOOD GAS OR DERABLES Final Result [facility] [address] [place] [address] documented in this encounter Visit Diagnoses Diagnosis of unknown anatomic location- Primary state, incidental documented in this encounter Care Teams Metallurgist Process Relationship Specialty Start Date End Date Rita Quiroga MD [address] [place] [address] [phone] PCP - General 04/13/17 documented as of this encounter
--- OUTSIDE RECORDS SUMMARY | 2024-10-15 02:08 | XMS_ITS | Encounter Summary ---
Author Organization [facility] Address [address] [place] [address] Care Team Providers Care Test Center Administrator Name Role Phone Phyllis Vega MD Primary Care Provider [phone] Encounter Details Date Type Department Care Team (Latest Contact Info) Description 05/08/2009 9:30 EDT - 05/08/2009 23:59 EDT Hospital Encounter [facility] Mood & Anxiety - [address] [place] [address] [place] [address] Desirae Estrada, [facility] [address] [place] [address] Discharge Disposition: Home or Self [...] on filedocumented in this encounter Care Teams Test Center Administrator Relationship Specialty Start Date End Date Phyllis Vega MD [address] [place] [address] [phone] PCP - General 03/24/09 04/12/17 documented as of this encounter
--- OUTSIDE RECORDS SUMMARY | 2024-10-15 02:08 | XMS_ITS | Encounter Summary ---
Author Organization [facility] Address [address] [place] [address] Care Team Providers Care State Superintendent Of Schools Name Role Phone Phyllis Vega MD Primary Care Provider [phone] Encounter Details Date Type Department Care Team ([facility] Contact Info) Description 06/07/2011 Abstract Used for ABSTRACTING Data [phone] Daljit Dyer MD 111 [facility], [facility] 5 [place] [address] Social History Tobacco Use Types [...] on filedocumented in this encounter Care Teams State Superintendent Of Schools Relationship Specialty Start Date End Date Phyllis Vega MD [address] [place] [phone] PCP - General 03/24/09 04/12/17 documented as of this encounter
--- OUTSIDE RECORDS SUMMARY | 2024-10-15 02:08 | XMS_ITS | Encounter Summary ---
Author Organization [facility] Address [address] [place] [address] Care Team Providers Care Certified Social Workers In Health Care Name Role Phone Phyllis Vega MD Primary Care Provider [phone] Encounter Details Date Type Department Care Team (Latest Contact Info) Description 08/11/2015 8:09 EDT - 08/11/2015 23:59 EDT Hospital Encounter [address] [address] Unknown, Provider, MD Discharge Disposition: Home or Self Care Social [...] filedocumented in this encounter Care Teams Certified Social Workers In Health Care Relationship Specialty Start Date End Date Phyllis Vega MD [address] [place] [phone] PCP - General 03/24/09 04/12/17 documented as of this encounter
--- OUTSIDE RECORDS SUMMARY | 2024-10-15 02:08 | XMS_ITS | Encounter Summary ---
Author Organization [facility] Address [address] [place] [address] Care Team Providers Care Public Health Nutritionist Name Role Phone Rita Quiroga MD Primary Care Provider [phone] Reason for Visit * Reason Onset Date Comments Appointment Related 04/17/2017 Encounter Details Date Type Department Care Team (Late st Contact Info) Description 04/17/2017 Telephone [facility] Dermatology [address] [address] Ana Hale, PA-C [address] [place] [address], Level [address] [place] [address] Appointment Related Social History Tobacco [...] referred on 07/08/[address] Rita Quiroga, [facility] for lesion, face - spot on nose [...] darker red in the middle, then gets medicare specialist towards the edges Fairly circular Denies pain, itch, or bleeding No personal hx of skin cancer Paternal uncle with Hx melanoma Scheduled for NPV 04/23/17 at 3;[address] Garcia, WP5 JAYNE MCDANIEL, RN 04/17/2017 13:17 * Telephone Encounter - [...] in this encounter Care Teams Public Health Nutritionist Relationship Specialty Start Date End Date Rita Quiroga MD [address] [place] [address] [phone] PCP - General 04/13/17 documented as of this encounter
--- OUTSIDE RECORDS SUMMARY | 2024-10-15 02:08 | XMS_ITS | Encounter Summary ---
Author Organization [facility] Address [address] [place] [address] Care Team Providers Care Enrichment Teacher Name Role Phone Phyllis Vega MD Primary Care Provider [phone] Encounter Details Date Type Department Care Team (Late Contact Info) Description 07/27/2010 12:48 EDT - 07/27/2010 23:59 EDT Hospital Encounter [facility] [address] [place] [address] Boo Jim MD 111 [facility], [address] [place] [address] Mauri Ware MD [address] [place] [address] [address] [place] [address] Discharge Disposition: Home or Self [...] 07/27/2010 0:00 EDT Physician Inpatient MD ADMISSION ORDERABLES Varsha l Result Performing Organization Address [facility]/ZIP Co de Phone Number POINT OF CARE * PATHOLOGY - SCANNED (07/30/2010 8:38 EDT) 07/30/2010 8:38 EDT Narrative Procedure Note Inpatient, Physician - 07/27/2010 0:00 EDT Physician Inpatient MD LAB INFO SERVICE AND SUPP ORT & PHONE RESULT Final Result Performing Organization Address [facility]/ZIP Co de Phone Number POINT OF CARE documented in this encounter Visit Diagnoses Not on filedocumented in this encounter Care Teams Enrichment Teacher Relationship Specialty Start Date End Date Phyllis Vega MD [address] [place] [address] [phone] PCP - General 03/24/09 04/12/17 documented as of this encounter
--- OUTSIDE RECORDS SUMMARY | 2024-10-15 02:08 | XMS_ITS | Encounter Summary ---
Author Organization [facility] Address [address] [place] [address] Care Team Providers Care Bursar Name Role Phone Rita Quiroga MD Primary Care Provider [phone] Encounter Details Date Type Department Care Team (Latest Contact Info) Description 04/13/2017 9:25 EDT - 04/13/2017 23:59 EDT Hospital Encounter [address] [address] Christine Michelle, PROFESSOR OF RELIGION [address] [place] [address] Discharge Disposition: Auto Discharge Social [...] on filedocumented in this encounter Care Teams Bursar Relationship Specialty Start Date End Date Rita Quiroga MD [address] [place] [address] [phone] PCP - General 04/13/17 documented as of this encounter
--- OUTSIDE RECORDS SUMMARY | 2024-10-15 02:08 | XMS_ITS | Encounter Summary ---
Author Organization [facility] Address [address] [place] [address] Care Team Providers Care Rivet Sorter Name Role Phone Rita Quiroga MD Primary Care Provider [phone] Reason for Visit * Reason Onset Date Comments Pharmacy 04/16/2017 Encounter Details Date Type Department Care Team ([facility] Contact Info) Description 04/16/2017 Orders Only [facility] OBGYN Services - [address] [address] Leni Delgado, RN Social History Tobacco Use Types Packs/Day [...] Progress Notes * Leni Delgado, SANDRO - 04/16/2017 1001 EDT Order placed for methotrexate per Dr. Baker. documented in this encounter Plan of Treatment Not on file documented as of this encounter Visit Diagnoses Not on filedocumented in this encounter Care Teams Rivet Sorter Relationship Specialty Start Date End Date Rita Quiroga MD [address] [place] [phone] PCP - General 04/13/17 documented as of this encounter
--- OUTSIDE RECORDS SUMMARY | 2024-10-15 02:08 | XMS_ITS | Encounter Summary ---
Author Organization [facility] Address [address] [place] [address] Care Team Providers Care Parts Counter Salesperson Name Role Phone Phyllis Vega MD Primary Care Provider [phone] Encounter Details Date Type Department Care Team ([facility] Contact Info) Description 01/20/2012 20:51 EST - 01/20/2012 23:59 EST Hospital Encounter [facility] [address] [place] [address] Daljit Dyer MD 111 [facility], Level [address] [place] [address] Discharge Disposition: Home or Self [...] Code Departure Means Destination Home or Self [facility] documented in this encounter Plan of Treatment Not on file documented as of this encounter Visit Diagnoses Not on filedocumented in this encounter Care Teams Parts Counter Salesperson Relationship Specialty Start Date End Date Phyllis Vega MD [address] [place] [address] [phone] PCP - General 03/24/09 04/12/17 documented as of this encounter
--- OUTSIDE RECORDS SUMMARY | 2024-10-15 02:08 | XMS_ITS | Encounter Summary ---
Author Organization [facility] Address [address] [place] [address] Care Team Providers Care Tile Trimmer Name Role Phone Phyllis Vega MD Primary Care Provider [phone] Encounter Details Date Type Department Care Team (Late Contact Info) Description 01/26/2014 Phlebotomy Only [address] [address] Health Education Teacher, Outpatient Social History Tobacco Use Types Packs/Day [...] filedocumented in this encounter Care Teams Tile Trimmer Relationship Specialty Start Date End Date Phyllis Vega MD [address] [place] [phone] PCP - General 03/24/09 04/12/17 documented as of this encounter
--- OUTSIDE RECORDS SUMMARY | 2024-10-15 02:08 | XMS_ITS | Encounter Summary ---
Author Organization [facility] Address [address] [place] [address] Care Team Providers Care Meeting Specialist Name Role Phone Phyllis Vega MD Primary Care Provider [phone] Encounter Details Date Type Department Care Team (Late st Contact Info) Description 04/12/2017 Orders Only Non [facility] Ancillary Services Christine Michelle, AUDIT ASSOCIATE [address] [place] [address] Other specified related conditions, first [...] Preg 267(H) <5 mIU/ml 04/13/2017 11:33 EDT [facility] Comment: Reference Range: Negative = <5 Indeterminate = 5-25 recommend repeat in 48 hours. Positive = >25 Blood specimen (specimen) BLOOD SPECIMEN / Unknown 04/13/2017 9:36 EDT 04/13/2017 10:49 EDT us Christine Michelle AUDIT ASSOCIATE CHEMISTRY & BLOOD GAS ORDER DALLIN Final Result [facility] [address] [place] [address] documented in this encounter Visit Diagnoses Diagnosis Other specified related conditions, first trimester- Primary documented in this encounter Orders Lab Orders Without Results Count Last Ordered D ate First Ordered Date HCG FOR 1 04/12/2017 documented in this encounter Care Teams Meeting Specialist Relationship Specialty Start Date End Date Phyllis Vega MD [address] [place] [address] [phone] PCP - General 03/24/09 04/12/17 documented as of this encounter
--- OUTSIDE RECORDS SUMMARY | 2024-10-15 02:08 | XMS_ITS | Encounter Summary ---
Author Organization [facility] Address [address] [place] [address] Care Team Providers Care Market Research Associate Name Role Phone Phyllis Vega MD Primary Care Provider [phone] Encounter Details Date Type Department Care Team ([facility] Contact Info) Description 05/25/2009 15:00 EDT - 05/25/2009 23:59 EDT Hospital Encounter [facility] Mood & Anxiety - [place] [address] [place] [address] Hazel Glasgow MD [address] [place] [phone] Discharge Disposition: Home or Self Care [...] Code Departure Means Destination Home or Self Jail documented in this encounter Plan of Treatment Not on file documented as of this encounter Procedures Procedure Name Priority Date/Time Associated Diagnosis Comments CHLAMYDIA/N. GONORRHOEAE AMPLIFIED NUCLEIC ACID Routine 07/27/2009 18:02 EDT documented in this encounter Results * CHLAMYDIA/GC AMPLIFIED (07/27/2009 18:02 EDT) Specimen Description [facility] Result No Chlamydia trachomatis DNA detected by kiss mixer mediated amplification. [facility] Result No Neisseria gonorrhoeae DNA detected by kiss mixer mediated amplification. [facility] 07/27/2009 18:0 2 EDT 07/27/2009 18:02 EDT us Sixto Yip MD MSc MICROBIOLOGY - GENE RAL ORDERABLES Final Result [facility] [address] [place] [address] documented in this encounter Visit Diagnoses Not on filedocumented in this encounter Care Teams Market Research Associate Relationship Specialty Start Date End Date Phyllis Vega MD [address] [place] [address] [phone] PCP - General 03/24/09 04/12/17 documented as of this encounter
--- OUTSIDE RECORDS SUMMARY | 2024-10-15 02:08 | XMS_ITS | Encounter Summary ---
Author Organization [facility] Address [address] [place] [address] Care Team Providers Care Dust Collector Ore Crushing Name Role Phone Rita Quiroga MD Primary Care Provider [phone] Encounter Details Date Type Department Care Team (Late Contact Info) Description 04/15/2017 Phlebotomy Only [address] [address] [place], Outpatient Other specified related conditions, first trimester [...] Preg 287(H) <5 mIU/ml 04/15/2017 11:32 EDT [facility] Comment: Reference Range: Negative = <5 Indeterminate = 5-25 recommend repeat in 48 hours. Positive = >25 Blood specimen (specimen) BLOOD SPECIMEN / Unknown 04/15/2017 10:03 EDT 04/15/2017 10:45 EDT us Christine Michelle MERCHANDISE CARRIER CHEMISTRY & BLOOD GAS ORDER DALLIN Final Result [facility] [address] [place] [address] documented in this encounter Visit Diagnoses Diagnosis Other specified related conditions, first trimester- Primary documented in this encounter Care Teams Dust Collector Ore Crushing Relationship Specialty Start Date End Date Rita Quiroga MD [address] [place] [phone] PCP - General 04/13/17 documented as of this encounter
--- OUTSIDE RECORDS SUMMARY | 2024-10-15 02:08 | XMS_ITS | Encounter Summary ---
Author Organization [facility] Address [address] [place] [address] Care Team Providers Care Metal Cut Off Saw Operator Name Role Phone Phyllis Vega MD Primary Care Provider [phone] Encounter Details Date Type Department Care Team (Latest Contact Info) Description 2009 15:04 EDT - 2009 15:05 EDT Hospital Encounter [facility] - Other [address] [place] [address] Laura Bravo PA-C [address] [place] [phone] Discharge Disposition: Home or Self Care Social [...] on filedocumented in this encounter Care Teams Metal Cut Off Saw Operator Relationship Specialty Start Date End Date Phyllis Vega MD [address] [place] [address] [phone] PCP - General 03/24/09 04/12/17 documented as of this encounter
--- OUTSIDE RECORDS SUMMARY | 2024-10-15 02:08 | XMS_ITS | Encounter Summary ---
Author Organization [facility] Address [address] [place] [address] Care Team Providers Care Flight Dynamicist Name Role Phone Phyllis Vega MD Primary Care Provider [phone] Encounter Details Date Type Department Care Team (Latest Contact Info) Description 01/26/2014 8:21 EST - 01/26/2014 23:59 EST Hospital Encounter [facility] [address] [place] [address] Rita Quiroga MD [address] [place] [phone] Discharge Disposition: Auto Discharge Social History [...] suspected. 01/26/2014 8:40 EST 01/26/2014 10:14 EST us Rita Quiroga MD CHEMISTRY & BLOOD GAS ORDERABLES Final Result [facility] [address] [place] [address] * LIPID PROFILE (INCLUDES CHOLESTEROL, TRIGLYCERIDES, HDL, LDL) (01/26/2014 8:40 EST) Cholesterol 183 mg/dl [facility] Comment: Icteric Icterus is not a quantitative measurement of bilirubin. Desirable:<200 Borderline High:200-239 High:>gd=547 Triglycerides 46 mg/dl [facility] Comment: Icteric Icterus is not a quantitative measurement of bilirubin. Normal:<150 Borderline High:150-199 High:200-499 Very High:>hk=550 HDL 59 mg/dl [facility] Comment: Icteric Icterus is not a quantitative measurement of bilirubin. Low:<40 Normal:40-60 Desirable: >60 LDL, Calculated 115 mg/dl [facility] Comment: Optimal:<100 Near Optimal:100-129 Borderline High:130-159 High:160-189 Very High:>sv=540 Chol/HDL Ratio 3.1 [facility] Fasting? YES [facility] Non HDL Cholesterol 124 mg/dl [facility] Comment: Icteric Icterus is not a quantitative measurement of bilirubin. Desirable:<130 Borderline:130-159 High: 160-189 Very High: >nd=420 01/26/2014 8:40 EST 01/26/2014 10:14 EST us Rita Quiroga MD CHEMISTRY & BLOOD GAS ORDERABLES Final Result [facility] [address] [place] [address] * BASIC METABOLIC PANEL (01/26/2014 8:40 EST) [...] measurement of bilirubin. Fasting? YES [facility] 01/26/2014 8:40 EST 01/26/2014 10:14 EST us Rita Quiroga MD CHEMISTRY & BLOOD GAS ORDERABLES Final Result Performing Organization Address City/State/[facility] Co de Phone Number [facility] [address] [place] [address] documented in this encounter Visit Diagnoses Not on filedocumented in this encounter Care Teams Flight Dynamicist Relationship Specialty Start Date End Date Phyllis Vega MD [address] [place] [phone] PCP - General 03/24/09 04/12/17 documented as of this encounter
--- OUTSIDE RECORDS SUMMARY | 2024-10-15 02:08 | XMS_ITS | Encounter Summary ---
Author Organization [facility] Address [address] [place] [address] Care Team Providers Care Cow Tester Name Role Phone Phyllis Vega MD Primary Care Provider [phone] Encounter Details Date Type Department Care Team ([facility] Contact Info) Description 09/21/2010 Results Only [facility] [phone] Aracely Palma MD [address] [place] [phone] Social History Tobacco Use Types Packs/Day Years [...] ROXANNE PERES V ? Accession #: ? [id number] ? : ? 1990 (Age: 20) ??F ? Collect Date: ? 09/21/2010 ? Location: ? [facility] ? Receive Date: ? 09/21/2010 ? Provider: ARACELY PALMA MD ? Copy to: ? Final Pathologic Diagnosis: ? Skin of eyelid, left upper, excision: ? - Hemangioma. ? Document reviewed and electronically signed by: ? DUSTIN MARQUEZ MD ? Report ??Date: 09/24/2010 15:00 [...] C SHEPHERD 09/21/2010 09/21/2010 19: 25 EDT us Aracely Palma MD PATHOLOGY ORDERABLES Final Result [facility] [address] [place] [address] documented in this encounter Visit Diagnoses Not on filedocumented in this encounter Care Teams Cow Tester Relationship Specialty Start Date End Date Phyllis Vega MD [address] [place] [phone] PCP - General 03/24/09 04/12/17 documented as of this encounter
--- OUTSIDE RECORDS SUMMARY | 2024-10-15 02:08 | XMS_ITS | Encounter Summary ---
Author Organization [facility] Address [address] [place] [address] Care Team Providers Care Billiard Player Name Role Phone Rita Quiroga MD Primary Care Provider [phone] Encounter Details Date Type Department Care Team (Latest Contact Info) Description 04/15/2017 9:35 EDT - 04/15/2017 23:59 EDT Hospital Encounter [address] [address] Christine Michelle, INTERNAL COMMUNICATIONS MANAGER [address] [place] [address] Discharge Disposition: Home or Self [...] on filedocumented in this encounter Care Teams Billiard Player Relationship Specialty Start Date End Date Rita Quiroga MD [address] [place] [phone] PCP - General 04/13/17 documented as of this encounter
--- OUTSIDE RECORDS SUMMARY | 2024-10-15 02:08 | XMS_ITS | Encounter Summary ---
Author Organization [facility] Address [address] [place] [address] Care Team Providers Care Eeg Tech Name Role Phone Phyllis Vega MD Primary Care Provider [phone] Encounter Details Date Type Department Care Team (Late st Contact Info) Description 11/16/2009 Abstract [facility] - [address] [address] Phyllis Vega MD [address] [place] [phone] Other General Counseling and Advice for [...] management documented in this encounter Care Teams Eeg Tech Relationship Specialty Start Date End Date Phyllis Vega MD [address] [place] [phone] PCP - General 03/24/09 04/12/17 documented as of this encounter
--- OUTSIDE RECORDS SUMMARY | 2024-10-15 02:08 | XMS_ITS | Encounter Summary ---
Author Organization [facility] Address [address] [place] [address] Care Team Providers Care Media Analytics Manager Name Role Phone Phyllis Vega MD Primary Care Provider [phone] Encounter Details Date Type Department Care Team (Late st Contact Info) Description 07/10/2010 Abstract [facility] Mood & Anxiety - [address] [place] [place] [address] Phyllis Vega MD [address] [place] [phone] Social History Tobacco Use Types Packs/Day [...] on filedocumented in this encounter Care Teams Media Analytics Manager Relationship Specialty Start Date End Date Phyllis Vega MD [address] [place] [phone] PCP - General 03/24/09 04/12/17 documented as of this encounter
--- OUTSIDE RECORDS SUMMARY | 2024-10-15 02:08 | XMS_ITS | Encounter Summary ---
Author Organization [facility] Address [address] [place] [address] Care Team Providers Care Sheriff Sergeant Name Role Phone Phyllis Vega MD Primary Care Provider [phone] Encounter Details Date Type Department Care Team ([facility] Contact Info) Description 04/10/2011 Abstract Used for ABSTRACTING Data [phone] Terry Sal MD [address] [facility], [facility] [address] [place] [address] Social History Tobacco Use Types [...] on filedocumented in this encounter Care Teams Sheriff Sergeant Relationship Specialty Start Date End Date Phyllis Vega MD [address] [place] [phone] PCP - General 03/24/09 04/12/17 documented as of this encounter
--- OUTSIDE RECORDS SUMMARY | 2024-10-15 02:08 | XMS_ITS | Encounter Summary ---
Author Organization [facility] Address [address] [place] [address] Care Team Providers Care Service Operations Manager Name Role Phone Phyllis Vega MD Primary Care Provider [phone] Reason for Visit * Reason Comments Emesis pt throwing up and d iarrhea x 2 hours Encounter Details Date Type Department Care Team (Late st Contact Info) Description 02/16/2010 1:08 EDT - 02/16/2010 3:[address] [facility] Emergency Department - Main [place] [address] [place] [address] Isidoro Farai MD [facility] [place] [place] [address] Emergency, Default, Viral gastroenteritis Discharge Disposition: Home or Self [...] from the original note were not included. [facility] Patient Instructions Gastroenteritis: After Your [...] Where can you learn more? Go to [email or web address] Enter N142 in the search box to learn more about Gastroenteritis: After Your Visit. ?? 2005 - 2008 [employer]. Care instructions adapted under license by [facility], [facility] . This care instruction is for use with your licensed healthcare professional. If you have questions about a medical condition or this instruction, always ask your healthcare professional. [employer] disclaims any warranty or liability for your [...] Refills Last Filled Start Date End Date ondansetron (ZOFRAN) 4 mg tablet Take 1 [...] performed a history and exam of Roxanne Beltran and discussed the case with the resident. [...] Given IV fluids and Zofran for nausea. Leblanc better and discharged home. Discharge Prescriptions New Prescriptions ONDANSETRON (ZOFRAN) 4 MG TABLET Take 1 Tab by mouth every 8 hours as needed for Nausea. [facility] Encounter Diagnoses Code Name Primary? Qualifier ??? [...] may reflect changes made after this encounter. omeprazole (PRILOSEC) 20 mg capsule Take 20 [...] 02/16/2010 documented in this encounter Care Teams Service Operations Manager Relationship Specialty Start Date End Date Phyllis Vega MD [address] [place] [phone] PCP - General 03/24/09 04/12/17 documented as of this encounter
--- OUTSIDE RECORDS SUMMARY | 2024-10-15 02:08 | XMS_ITS | Encounter Summary ---
Author Organization [facility] Address [address] [place] [address] Care Team Providers Care Direct Marketing Executive Name Role Phone Phyllis Vega MD Primary Care Provider [phone] Encounter Details Date Type Department Care Team ([facility] Contact Info) Description 09/21/2010 18:09 EDT - 09/21/2010 18:10 EDT Hospital Encounter [facility] - Other [address] [place] [address] Aracely Palma MD [address] [place] [phone] Discharge Disposition: Home or Self Care [...] on filedocumented in this encounter Care Teams Direct Marketing Executive Relationship Specialty Start Date End Date Phyllis Vega MD [address] [place] [phone] PCP - General 03/24/09 04/12/17 documented as of this encounter
--- OUTSIDE RECORDS SUMMARY | 2024-10-15 02:08 | XMS_ITS | Encounter Summary ---
Author Organization [facility] Address [address] [place] [address] Care Team Providers Care Patient Safety Officer Name Role Phone Phyllis Vega MD Primary Care Provider [phone] Encounter Details Date Type Department Care Team (Late st Contact Info) Description 06/06/2010 Results Only [facility] [phone] Giulia eDnton MD [address] [place] [phone] Social History Tobacco Use Types Packs/Day Years [...] ROXANNE PERES V ? Accession #: ? [id number] ? : ? 1990 (Age: 20) ??F [...] are submitted entirely in one ?? cassette. ??(A. Alvarez)/mms ? End of Report ? [facility] 06/06/2010 06/06/2010 19: 44 EDT us Giulia Denton MD PATHOLOGY ORDERABLES Final Resu lt Performing Organization Address City/State/[facility] Co de Phone Number [facility] [address] [place] [address] documented in this encounter Visit Diagnoses Not on filedocumented in this encounter Care Teams Patient Safety Officer Relationship Specialty Start Date End Date Phyllis Vega MD [address] [place] [phone] PCP - General 03/24/09 04/12/17 documented as of this encounter
--- OUTSIDE RECORDS SUMMARY | 2024-10-15 02:08 | XMS_ITS | Encounter Summary ---
Author Organization [facility] Address [address] [place] [address] Care Team Providers Care Gelatin Plant Supervisor Name Role Phone Rita Quiroga MD Primary Care Provider [phone] Encounter Details Date Type Department Care Team (Late Contact Info) Description 04/13/2017 Phlebotomy Only [address] [address] Receiving Checker, Outpatient Other specified related conditions, first trimester [...] Preg 267(H) <5 mIU/ml 04/13/2017 11:33 EDT [facility] Comment: Reference Range: Negative = <5 Indeterminate = 5-25 recommend repeat in 48 hours. Positive = >25 Blood specimen (specimen) BLOOD SPECIMEN / Unknown 04/13/2017 9:36 EDT 04/13/2017 10:49 EDT us Christine Michelle BUSINESS MAIL ENTRY CLERK CHEMISTRY & BLOOD GAS ORDER DALLIN Final Result [facility] [address] [place] [address] documented in this encounter Visit Diagnoses Diagnosis Other specified related conditions, first trimester- Primary documented in this encounter Care Teams Gelatin Plant Supervisor Relationship Specialty Start Date End Date Rita Quiroga MD [address] [place] [phone] PCP - General 04/13/17 documented as of this encounter
--- OUTSIDE RECORDS SUMMARY | 2024-10-15 02:08 | XMS_ITS | Encounter Summary ---
Author Organization [facility] Address [address] [place] [address] Care Team Providers Care Processing Inspector Name Role Phone Phyllis Vega MD Primary Care Provider [phone] Encounter Details Date Type Department Care Team (Late st Contact Info) Description 09/13/2009 Abstract [facility] OBGYN Services - [address] [address] Phyllis Vega MD [address] [place] [phone] Insertion of Intrauterine Contraceptive Device Social History [...] device documented in this encounter Care Teams Processing Inspector Relationship Specialty Start Date End Date Phyllis Vega MD [address] [place] [phone] PCP - General 03/24/09 04/12/17 documented as of this encounter
--- OUTSIDE RECORDS SUMMARY | 2024-10-15 02:08 | XMS_ITS | Encounter Summary ---
Author Organization [facility] Address [address] [place] [address] Care Team Providers Care Vp Treasurer Name Role Phone Rita Quiroga MD Primary Care Provider [phone] Encounter Details Date Type Department Care Team (Late Contact Info) Description 04/20/2017 Phlebotomy Only [facility] - [address] [address] Academic Dean, Outpatient Tubal without intrauterine (Primary Dx) Social [...] Preg 63(H) <5 mIU/ml 04/20/2017 13:22 EDT [facility] Comment: Reference Range: Negative = <5 Indeterminate = 5-25 recommend repeat in 48 hours. Positive = >25 Blood specimen (specimen) BLOOD SPECIMEN / Unknown 04/20/2017 10:43 EDT 04/20/2017 12:32 EDT us Jenifer Baker MD CHEMISTRY & BLOOD GAS OR DERABLES Final Result [facility] [address] [place] [address] documented in this encounter Visit Diagnoses Diagnosis Tubal without intrauterine - Primary documented in this encounter Care Teams Vp Treasurer Relationship Specialty Start Date End Date Rita Quiroga MD [address] [place] [phone] PCP - General 04/13/17 documented as of this encounter
--- OUTSIDE RECORDS SUMMARY | 2024-10-15 02:08 | XMS_ITS | Encounter Summary ---
Author Organization [facility] Address [address] [place] [address] Care Team Providers Care Penology Professor Name Role Phone Phyllis Vega MD Primary Care Provider [phone] Reason for Visit * Reason Comments Follow-up Hx of photopsias. Hx of migraines. Myopia. Still has blue spots in vision and squiggly floaters but no change. va stable. No pain. Encounter Details Date Type Department Care Team (Late st Contact Info) Description 04/12/2011 8:45 EDT Office Visit [facility] Ophthalmology - Main [address] [phone] Terry Sal MD [address] [place] [address], Level [address] [place] [address] Social History Tobacco Use Types [...] - 04/24/2011 1212 EDT DIVISION OF OPHTHALMOLOGY [facility] PROGRESS/FOLLOWUP NOTE - 04/12/2011 Daljit Dyer MD [facility] - Ophthalmology [address] [place] [address] Dear Daljit: This is a letter of [...] Terry Sal MD [facility] [address] [place] [address], [place] [address] - Terry Sal MD - [facility] Job ID: SM Doc ID: [id number] [facility] Doc ID: [id number] cc: MD Manda Rosales OD * Terry [...] dilated exam . Pt likely moving from [facility] after graduation from college She [...] CR Scar 9 o'clock Normal Care Teams Penology Professor Relationship Specialty Start Date End Date Phyllis Vega MD [address] [place] [phone] PCP - General 03/24/09 04/12/17 documented as of this encounter
--- OUTSIDE RECORDS SUMMARY | 2024-10-15 02:08 | XMS_ITS | Encounter Summary ---
Author Organization [facility] Address [address] [place] [address] Care Team Providers Care Otr Company Driver Name Role Phone Phyllis Vega MD Primary Care Provider [phone] Encounter Details Date Type Department Care Team ([facility] Contact Info) Description 2009 Office Visit [facility] [place] [facility] [address] [place] [address] Student, T System [employer] Social History Tobacco Use Types Packs/Day Years Used Date Smoking Tobacco: Never Assessed Comments Unknown Sex and Gender Information Value Date Recorded Sex Assigned at Not on file Legal Sex Female 18:44 EST Gender Identity Not on file Sexual Orientation Not on file documented as of this encounter Progress Notes * Eliel, Conv Poison Information Specialist - 03/10/2010 4657 EDT Care Center - Physician Summary Registration [...] Follow-up: ROXY LANE MD, Psych, , FA, [address] [place] [address]. Follow up in about one week. Call for an appointment. (Electronically signed by Laura Flores, 2009 15:27) Care Center - Nursing Summary Registration Date/Time: 2009 10:57 TRIAGE Initial Assessment O2 saturation: 100% room air. --1131 [place] Flann[place], R.N. (Pt in NAD. Able to speak in full sentances.). --1131 [place] Alma Delia, R.N. BP: 130 / 60 sitting R arm manual. HR: 58 regular. RR: 16 regular (unlabored). Temp: 99 (temporal).--1141 [place] Flann[place], R.N.. Medications (nuvo-ring BCP). Prilosec: 10 mg daily. --1141 [place] Flann[place], R.N.. Allergies No known drug allergies. --1141 Luis Alberto Flannery R.N.. History Chief Complaint: SHORTNESS OF BREATH and (anxiety). This is a recurrent problem (3 weeks ago). Pain level now: 0/10. The patient has had a mild cough. (Feelslike she can't take a deep enough breath). Treatment FOOD SCIENCE PROFESSOR: None. PAST HX: Immunizations: up-to-date. Last normal [...] nurse per protocol and sent to lab: [facility]. --1440 Luis Alberto Flannery R.N.. DISPOSITION / DISCHARGE Condition at departure: unchanged. Patient reports pain level on departure as 0/10. No learning barriers present. Discharge instructions reviewed with the patient. Reviewed medication side effects, precautions, dosing and course; prescription (s) given to the patient. Patient verbalized understanding. Written instructions provided in Portuguese. The patient was discharged home. The patient left the Emergency Department ambulatory and via private vehicle. Patient driving. --1525 Luis Alberto Flannery R.N.. Locked/Released at 2009 15:25 by Luis Alberto Flannery R.N. documented in this encounter Plan of Treatment Not on file documented as of this encounter Visit Diagnoses Not on filedocumented in this encounter Care Teams Otr Company Driver Relationship Specialty Start Date End Date Phyllis Vega MD [address] [place] [phone] PCP - General 03/24/09 04/12/17 documented as of this encounter
--- OUTSIDE RECORDS SUMMARY | 2024-10-15 02:08 | XMS_ITS | Encounter Summary ---
Author Organization [facility] Address [address] [place] [address] Care Team Providers Care Hand Collator Name Role Phone Phyllis Vega MD Primary Care Provider [phone] Reason for Visit * Reason Onset Date Comments Provider Referred 07/08/2016 Encounter Details Date Type Department Care Team (Late st Contact Info) Description 07/08/2016 Telephone [facility] Dermatology 3rd Floor [address] [address] Dee Steen MD [address] [place] [address], Level [address] [place] [address] Provider Referred Social History Tobacco [...] on filedocumented in this encounter Care Teams Hand Collator Relationship Specialty Start Date End Date Phyllis Vega MD [address] [place] [phone] PCP - General 03/24/09 04/12/17 documented as of this encounter
--- OUTSIDE RECORDS SUMMARY | 2024-10-15 02:08 | XMS_ITS | Encounter Summary ---
Author Organization [facility] Address [address] [place] [address] Care Team Providers Care Manager Of Production Name Role Phone Phyllis Vega MD Primary Care Provider [phone] Encounter Details Date Type Department Care Team (Latest Contact Info) Description 2009 10:56 EDT - 2009 15:26 EDT Hospital Encounter [facility] - [address] [address] Unknown, Provider, Discharge Disposition: Home or Self [...] 14:28 EDT Laura Bravo PA-C HEMATOLOGY & PF4 ORDER DALLIN Final Result [facility] [address] [place] [address] * CHEST PA AND LATERAL (2009 13:31 [...] Laura Bravo PA-C IMG DIAGNOSTIC IMAGING ORDERABLES Final Result documented in this encounter Visit Diagnoses Not on filedocumented in this encounter Care Teams Manager Of Production Relationship Specialty Start Date End Date Phyllis Vega MD [address] [place] [phone] PCP - General 03/24/09 04/12/17 documented as of this encounter
--- OUTSIDE RECORDS SUMMARY | 2024-10-15 02:08 | XMS_ITS | Encounter Summary ---
Author Organization [facility] Address [address] [place] [address] Care Team Providers Care Manager Channel Name Role Phone Rita Quiroga MD Primary Care Provider [phone] Reason for Referral * COMMITTEE MEMBER (Other (Specify in Question)) - Closed Specialty Diagnoses / Procedures Referred By Zafar jason Referred To Contact Diagnoses of unknown anatomic location Procedures [facility] [employer] [facility] US OB FIRST TRIMESTER TRANSVAGINAL Jenifer Baker MD Phone: tel: fax: Referral ID Status Reason Start Date Expiration Date Visits Re quested Visits Authorized [id number] Closed 04/15/2017 1 1 Reason for Visit * Reason Onset Date Comments Ectopic 04/15/2017 Encounter Details Date Type Department Care Team ([facility] [address] [facility] Contact Info) Description 04/15/2017 Orders Only [facility] O[facility]YN Services - [address] [address] Leni Delgado RN of unknown anatomic location [...] morning followed by US and CON in [facility] clinic. Added to [facility] beta hcg monitoring list. Reported height is 62 and weight is 118 pounds. documented in this encounter Plan of Treatment Not on file documented as of this encounter Procedures Procedure Name Priority Date/Time Associated Diagnosis Comments [employer] US OB FIRST TRIMESTER TRANSVAGINAL Routine 04/16/2017 9:23 EDT of unknown anatomic location documented in this encounter Results * [employer] US OB FIRST TRIMESTER TRANSVAGINAL (04/16/2017 9:23 [...] ultrasound examination. View: Sufficient. Impression OB transvaginal [id number] Right adnexal mass adjacent to right ovary [...] ultrasound examination. View: Sufficient. Impression OB transvaginal [id number] Right adnexal mass adjacent to right ovary containing two CL's highly suspicious for tubal ectopic. Anteverted uterus with remnant Paragard IUD arm embedded into the right FRANKIE. No IUP identified. Left hemorrhagic cyst. The Paragard arm was removed under direct ultrasound visualization. Follow-up See [facility] notes for discussion of treatment plans for ectopic . us Jenifer Baker MD IMG US [employer] ORDERABLES Fi nal Result * (ABNORMAL) BUN (04/16/2017 8:37 EDT) BUN 8(L) 10 - 26 mg/dl 04/16/2017 9:38 EDT [facility] Blood specimen (specimen) BLOOD SPECIMEN / Unknown 04/16/2017 8:37 EDT 04/16/2017 8:53 EDT us Jenifer Baker MD CHEMISTRY & BLOOD GAS OR DERABLES Final Result Performing Organization Address City/[facility] Co de Phone Number [facility] [address] [place] [address] * CREATININE (04/16/2017 8:37 EDT) Creatinine 0.61 0.52 - 1.04 mg/dl 04/16/2017 9:38 EDT [facility] GFR, Calculated 124 >60 ml/min/1.7 3m2 04/16/2017 9:38 EDT [facility] Comment: eGFR calculated using CKD-EPI equation for non Americans. Multiply eGFR by 1.16 for Americans. Blood specimen (specimen) BLOOD SPECIMEN / Unknown 04/16/2017 8:37 EDT 04/16/2017 8:53 EDT us Jenifer Baker MD CHEMISTRY & BLOOD GAS OR DERABLES Final Result Performing Organization Address [facility] Co de Phone Number [facility] [address] [place] [id number] * AST (04/16/2017 8:37 EDT) AST 18 15 - 46 U/L 04/16/2017 9:38 EDT [facility] Blood specimen (specimen) BLOOD SPECIMEN / Unknown 04/16/2017 8:37 EDT 04/16/2017 8:53 EDT us Jenifer Baker MD CHEMISTRY & BLOOD GAS OR DERABLES Final Result Performing Organization Address City/[facility]/ZIP Co de Phone Number [facility] [address] [place] [address] * ALT (04/16/2017 8:37 EDT) ALT 20 <53 U/L 04/16/2017 9:38 [facility] Blood specimen (specimen) BLOOD SPECIMEN / Unknown 04/16/2017 8:37 EDT 04/16/2017 8:53 EDT us Jenifer Baker MD CHEMISTRY & BLOOD GAS OR DERABLES Final Result [facility] [address] [place] [address] * (ABNORMAL) HEMAGRAM (04/16/2017 8:37 EDT) WBC 7.89 4.0 - 12.4 K/cmm 04/16/2017 9:16 [facility] RBC 4.29 3.86 - 5.04 M/cmm 04/16/2017 9:16 [facility] Hemoglobin 11.8 11.6 - 15.2 gm/dl 04/16/2017 9:16 [facility] HCT 35.6 34.9 - 44.4 % 04/16/2017 9:16 [facility] MCV 83 81 - 98 fl 04/16/2017 9:16 [facility] MCH 27.5 26.7 - 33.3 pg 04/16/2017 9:16 [facility] MCHC 33.1 32.1 - 35.9 gm/dl 04/16/2017 9:16 [facility] RDW-CV 15.1(H) <14.7 % 04/16/2017 9:16 [facility] RDW-SD 46.3 <50.4 fl 04/16/2017 9:16 [facility] PLT 287 141 - 377 K/cmm 04/16/2017 9:16 [facility] MPV 11.0 9.5 - 12.7 fl 04/16/2017 9:16 [facility] Blood specimen (specimen) BLOOD SPECIMEN / Unknown 04/16/2017 8:37 EDT 04/16/2017 8:53 EDT us Jenifer Baker MD HEMATOLOGY & PF4 ORDERAB LES Final Result Performing Organization Address City/[facility]/ZIP Co de Phone Number [facility] [address] [place] [address] * (ABNORMAL) HCG FOR (04/16/2017 8:37 EDT) Quant Beta HCG, Preg 317(H) <5 mIU/ml 04/16/2017 9:38 EDT [facility] Comment: Reference Range: Negative = <5 Indeterminate = 5-25 recommend repeat in 48 hours. Positive = >25 Blood specimen (specimen) BLOOD SPECIMEN / Unknown 04/16/2017 8:37 EDT 04/16/2017 8:53 EDT us Jenifer Baker MD CHEMISTRY & BLOOD GAS OR DERABLES Final Result Performing Organization Address City/[facility] Co de Phone Number [facility] [address] [place] [address] documented in this encounter Visit Diagnoses Diagnosis of unknown anatomic location- Primary state, incidental documented in this encounter Care Teams Manager Channel Relationship Specialty Start Date End Date Rita Quiroga MD [address] [place] [phone] PCP - General 04/13/17 documented as of this encounter
--- OUTSIDE RECORDS SUMMARY | 2024-10-15 02:09 | XMS_ITS | Encounter Summary ---
Author Organization [facility] Address [address] [place] [address] Care Team Providers Care Wrist Closer Name Role Phone Unavailable Primary Care Provider Unavailabl e Encounter Details Date Type Department Care Team (Latest Contact Info) Description 10/10/2008 10:20 EST - 10/10/2008 11:59 EST Hospital Encounter [address] [address] Angela Eubanks MD [address] [place] [phone] Discharge Disposition: Auto Discharge Social History [...] 12:20 EST Angela Eubanks MD IMMUNOLOGY AND SEROLOGY TANNER MCKINNEY Final Result [facility] [address] [place] [address] * ENDOMYSIAL ANTIBODY, SERUM (10/10/2008 12:13 EST) Endomysial Antibodies Negative Reference range: Negative Analyte Specific Reagent ? This test was developed and its performance characteristics ? determined by [facility]. This test has not been cleared or ? approved by the U.S. Food and Drug Administration. ? Performed or Referred by: [facility] Dpt of Lab Med and Path, [address] [place] [address], Lab Dir: Doroteo Viveros III, ? MD ? [facility] 10/10/2008 12:1 3 EST 10/10/2008 12:20 EST Angela Eubanks MD IMMUNOLOGY AND SEROLOGY TANNER MCKINNEY Final Result Performing Organization Address City/State/[facility] Co de Phone Number [facility] [address] [place] [address] * CERULOPLASMIN (10/10/2008 12:13 EST) Cerulplasmin 25.7Reference range: 14.0 to 47.8 Unit: mg/dL Please note change in methodology and reference ? values effective 08/23/2008. ? Performed or Referred by: [facility] Dpt of Lab Med and Path, [address] [place] [address], Lab Dir: Doroteo Viveros III, ? MD ? [facility] 10/10/2008 12:1 3 EST 10/10/2008 12:20 EST Angela Eubanks MD CHEMISTRY & BLOOD GAS ORDERA BLES Final Result Performing Organization Address [facility] Phone Number [facility] [address] [place] [address] * ANTI NUCLEAR ANTIBODY (10/10/2008 12:13 EST) Anti Nuclear Ab <40 0 - 40 Dils [facility] 10/10/2008 12:1 3 EST 10/10/2008 12:20 EST Angela Eubanks MD IMMUNOLOGY AND SEROLOGY ORDE RABLES Final Result Performing Organization Address [facility] Phone Number [facility] [address] [place] [address] * CK (10/10/2008 12:13 EST) CK 74 30 - 135 U/L [facility] 10/10/2008 12:1 3 EST 10/10/2008 12:20 EST Angela Eubanks MD CHEMISTRY & BLOOD GAS ORDERA BLES Final Result Performing Organization Address [facility] de Phone Number [facility] [address] [place] [address] * (ABNORMAL) LIVER FUNCTION TESTS (10/10/2008 12:13 EST) Albumin 5.3(H) 3.4 - 4.9 g/dl [facility] Total Protein 7.9 6.5 - 8.3 g/dl [facility] Alkaline Phosphatase 79 38 - 126 U/L [facility] ALT 38 9 - 52 U/L [facility] AST 32 15 - 46 U/L [facility] Unconjugated Bilirubin 0.7 0.1 - 1.1 mg/dl [facility] Conjugated Bilirubin 0.0 0.0 - 0.3 mg/dl [facility] Bilirubin, Total <0.5 0.2 - 1.3 mg/dl [facility] 10/10/2008 12:1 3 EST 10/10/2008 12:20 EST Angela Eubanks MD CHEMISTRY & BLOOD GAS ORDERA BLES Final Result Performing Organization Address [facility] Phone Number [facility] [address] [place] [address] * LIPID PROFILE (10/10/2008 12:13 EST) Cholesterol 145 mg/dl [facility] Comment: Desirable:<200 Borderline High:200-239 High:>bk=250 Triglycerides 60 35 - 160 mg/dl [facility] HDL 40 mg/dl [facility] Comment: Low:<40 High(Desirable):>or=60 LDL, Calculated 93 mg/dl [facility] Comment: Optimal:<100 Above optimal:100-129 Borderline High:130-159 High:160-189 Very High:>sk=675 Chol/HDL Ratio 3.6 [facility] Fasting? Yes [facility] 10/10/2008 12:1 3 EST 10/10/2008 12:20 EST Angela Eubanks MD CHEMISTRY & BLOOD GAS ORDERA BLES Final Result Performing Organization Address [facility] de Phone Number [facility] [address] [place] [address] * RAD US ABDOMEN ONE ORGAN/QUADRANT (10/10/2008 [...] above. Angela Eubanks MD IMG US ORDERABLES Final Resu lt documented in this encounter Visit Diagnoses Not on filedocumented in this encounter
[2024-10-15 16:11] LABS: Abs Immature Grans 0.11 10^3/uL (0.0-0.06); Absolute Basophil Count 0.06 10^3/uL (0.0-0.2); Absolute Eosinophil Count 0.57 10^3/uL (0.0-0.7); Absolute Neutrophil Count 10.88 10^3/uL (1.2-6.7); Basophils % 0.4 %; Eosinophils % 3.8 %; HCT 38.9 % (36.0-46.0); HGB 13.1 g/dL (11.2-15.7); Immature Grans % 0.7 %; Lymphocytes % 14.7 %; MCH 30.2 pg (27.0-33.0); MCHC 33.7 % (32.0-36.0); MCV 90 fL (80-95); MPV 10.4 fL (8.0-11.0); Monocytes % 7.3 %; Neutrophils % 73.1 %; Platelet Count 283 10^3/uL (130-400); RBC 4.34 10^6/uL (3.93-5.22); RDW 13.4 % (11.7-14.6); RDW-SD 43.9 fL; WBC 14.88 10^3/uL (4.4-10.8)
[2024-10-15 16:17] LABS: Absolute Lymphocyte Count 2.19 10^3/uL (1.2-3.4); Absolute Monocyte Count 1.09 10^3/uL (0.1-0.8)
[2024-10-22 16:03] LABS: Specimen WB Whole Blood
[2024-11-02 14:44] LABS: Result Summary NEGATIVE; Specimen WB Whole Blood
== END 2024-10-15 02:06 | disposition home or self-care (01) ==
LOC: LBO 02:05
PROVIDERS: PCP Family Medicine; Visit Provider Advanced Practice Midwife
DX: Z34.91 Encounter for supervision of normal pregnancy, unspecified, first trimester (principal)
CPT/HCPCS: 81220; 81222; 81329; 85025

== ENCOUNTER 2024-11-09 02:18 | Outpatient (CLI) | payer BC, SELFPAY ==
[2024-11-09 12:01] LABS: TSH (W/Ref FT4) 4.82 uIU/mL (0.36-3.74)
[2024-11-09 12:17] LABS: FREE T4 0.89 ng/dL (0.76-1.46)
== END 2024-11-09 02:19 | disposition home or self-care (01) ==
LOC: LBO 02:18
PROVIDERS: PCP Family Medicine; Visit Provider Advanced Practice Midwife
DX: E03.9 Hypothyroidism, unspecified (principal); Z34.91 Encounter for supervision of normal pregnancy, unspecified, first trimester
CPT/HCPCS: 36415; 84439; 84443

== ENCOUNTER 2025-01-04 01:06 | Outpatient (CLI) | payer BC, SELFPAY ==
--- OUTSIDE RECORDS SUMMARY | 2025-01-04 01:18 | XMS_ITS | Encounter Summary ---
Author Organization [facility] Address [address] [place] [address] Care Team Providers Care Database Consultant Name Role Phone Rita Quiroga MD Primary Care Provider [phone] Reason for Visit * Reason Onset Date Comments Other 11/19/2017 Encounter Details Date Type Department Care Team ([facility] Contact Info) Description 11/19/2017 Telephone [facility] O[facility]YN Services - [facility] [address] [place] [address] Lucía Busch, RN Other Social History Tobacco [...] on filedocumented in this encounter Care Teams Database Consultant Relationship Specialty Start Date End Date Rita Quiroga MD [address] [place] [phone] PCP - General 04/13/17 documented as of this encounter
--- OUTSIDE RECORDS SUMMARY | 2025-01-04 01:18 | XMS_ITS | Data Portability ---
Author Organization [facility] Address [address] [place] [address] Assessment No assessment recorded. Plan of Treatment Reminders Order Date Submit Date Provider Last Modified By Organization Details Last Modified Time Details Appointments Annual Wellness Exam 40 2024 02:20P M Lavinia Quiroga Not available Not available Not available Lab TSH, serum, reflex free T4 2023 024 [facility] (Registration ), [address] [place] [address] [place], [address], 03/11/2024 13:20:04 CBC w/ auto diff 2023 024 [facility] (Registration ), [address] [place] [address] [place], [address], 03/10/2024 20:24:03 HIV (1+2) Ab screen, serum 2023 024 [facility] (Registration ), [address] [place] [address] [place], [address], 03/12/2024 09:14:21 hepatitis C virus Ab, serum 2023 024 [facility] (Registration ), [address] [place] [address] [place], [address], 03/12/2024 09:14:01 TSH, serum, reflex free T4 2023 024 [facility] (Registration ), [address] [place] [address] [place], [address], 06/13/2024 16:45:10 thyroglob ulin Ab, serum [email or web address] [place] [address] Laboratory (Registration ), [address] [place] [address] [place], [address], 06/24/2024 09:59:58 thyropero xidase Ab, serum 2023 024 [facility] (Registration ), [address] [place] [address] [place], [address], 06/13/2024 16:44:45 Referral None recorded. Procedures None recorded. Surgeries None recorded. Imaging None recorded. Medication Orders albuterol sulfate HFA 90 mcg/actua tion aerosol inhaler 2022 023 [email or web address], [address] [place], [address], 03/10/2024 15:07:17 prednison e 20 mg tablet 2022 023 [email or web address] [facility], [address] [place], [address], 02/19/2024 09:20:57 benzonata te 100 mg capsule 2022 023 [email or web address] [facility], [address] [place], [address], 02/19/2024 09:29:24 metoprolo l tartrate 25 mg tablet 2023 024 [facility], [address] [place] [address], [address], [address], 03/10/2024 16:53:[address] 10 mg tablet 2023 024 [facility], [address] [place] [address], [address], [address], 03/10/2024 16:53:17 escitalop jose m 10 mg tablet 2023 024 [facility], [address], [facility] [address], [place], [address], 03/10/2024 16:53:13 alprazola m 0.25 mg tablet 2023 024 [facility], [address] [facility] [address], [place], [address], 03/10/2024 16:53:18 Patient TargetsNo targets recorded. Patient Instructions Encounter Date Encounter Id Patient Instructions Last Modified By Organization Details Last Modified Time 11/14/2023 [id number] Start ALBUTEROL 2 puffs every 4-6 hours for cough. Can use BENZONOTATE caps as needed up to 3 times a day. If not better in a few days,start the prednisone 20 mg tablets, 2 for 5 days, then 1 for 5 days. Can try the metoprolol either daily or as needed. [email or web address] Not available 11/14/2023 15:57:59 02/19/2024 [id number] General measures we can take to minimize [...] 10_3/ uL 4.4-10 .8 normal Not Available [facility] [address] [place], [address] 03/10/2024 20:24:03 03/10/20 24 03/10/2024 COMPL ETE BLOOD COUNT W/DIF F RBC 4.33 10_6/ uL 3.93-5 .22 normal Not Available [address] [place], [address] 03/10/2024 20:24:03 03/10/20 24 03/10/2024 COMPL ETE BLOOD COUNT W/DIF F HGB 12.7 g/dL 11.2-1 5.7 normal Not Available [address] [place], [address] 03/10/2024 20:24:03 03/10/20 24 03/10/2024 COMPL ETE BLOOD COUNT W/DIF F HCT 38.9 % 36.0-4 6.0 normal Not Available [address] [place], [address] 03/10/2024 20:24:03 03/10/20 24 03/10/2024 COMPL ETE BLOOD COUNT W/DIF F MCV 90 fL 80-95 normal Not Available [address] [place], [address] 03/10/2024 20:24:03 03/10/20 24 03/10/2024 COMPL ETE BLOOD COUNT W/DIF F MCH 29.3 pg 27.0-3 3.0 normal Not Available [address] [place], [address] 03/10/2024 20:24:03 03/10/20 24 03/10/2024 COMPL ETE BLOOD COUNT W/DIF F MCHC 32.6 % 32.0-3 6.0 normal Not Available [address] [place], [address] 03/10/2024 20:24:03 03/10/20 24 03/10/2024 COMPL ETE BLOOD COUNT W/DIF F RDW 12.8 % 11.7-1 4.6 normal Not Available [address] [place], [address] 03/10/2024 20:24:03 03/10/20 24 03/10/2024 COMPL ETE BLOOD COUNT W/DIF F platelet count 293 10_3/ uL 130-40 0 normal Not Available [address] [place], [address] 03/10/2024 20:24:03 03/10/20 24 03/10/2024 COMPL ETE BLOOD COUNT W/DIF F MPV 10.7 fL 8.0-11 .0 normal Not Available [address] [place], [address] 03/10/2024 20:24:03 03/10/20 24 03/10/2024 COMPL ETE BLOOD COUNT W/DIF F neutrophils % 60.3 Not Available [address] [place], [address] 03/10/2024 20:24:03 03/10/20 24 03/10/2024 COMPL ETE BLOOD COUNT W/DIF F lymphocytes % 27.0 Not Available [address] [place], [address] 03/10/2024 20:24:03 03/10/20 24 03/10/2024 COMPL ETE BLOOD COUNT W/DIF F monocytes % 7.9 Not Available [address] [facility] [place], [address] 03/10/2024 20:24:03 03/10/20 24 03/10/2024 COMPL ETE BLOOD COUNT W/DIF F eosinophils % 3.9 Not Available [address] [place], [address] 03/10/2024 20:24:03 03/10/2003/10/2024 COMPL ETE BLOOD COUNT W/DIF F basophils % 0.6 Not Available [address] [facility] [place], [address] 03/10/2024 20:24:03 03/10/2003/10/2024 COMPL ETE BLOOD COUNT W/DIF F immature grans % 0.3 Not Available [address] [place], [address] 03/10/2024 20:24:03 03/10/20 24 03/10/2024 COMPL ETE BLOOD COUNT W/DIF F nucleated RBC 0.0 % 0.0-0. 3 normal Not Available [address] [place], [address] 03/10/2024 20:24:03 03/10/20 24 03/10/2024 COMPL ETE BLOOD COUNT W/DIF F absolute neutrophil count 4.37 10_3/ uL 1.2-6. 7 normal Not Available [address] [place], [address] 03/10/2024 20:24:03 03/10/20 24 03/10/2024 COMPL ETE BLOOD COUNT W/DIF F absolute lymphocyte count 1.95 10_3/ uL 1.2-3. 4 normal Not Available [address] [place], [address] 03/10/2024 20:24:03 03/10/20 24 03/10/2024 COMPL ETE BLOOD COUNT W/DIF F absolute monocyte count 0.57 10_3/ uL 0.1-0. 8 normal Not Available [address] [place], [address] 03/10/2024 20:24:03 03/10/20 24 03/10/2024 COMPL ETE BLOOD COUNT W/DIF F absolute eosinophil count 0.28 10_3/ uL 0.0-0. 7 normal Not Available [address] [place], [address] 03/10/2024 20:24:03 03/10/20 24 03/10/2024 COMPL ETE BLOOD COUNT W/DIF F absolute basophil count 0.04 10_3/ uL 0.0-0. 2 normal Not Available [address] [place], [address] 03/10/2024 20:24:03 03/10/20 24 03/10/2024 TSH (W/RE F FT4) TSH (w/ref FT4) 6.45 uIU/m L 0.36-3 .74 high Not Available [address] [place], [address] 03/10/2024 20:43:00 03/10/20 24 03/10/2024 TSH (W/RE F FT4) TSH (w/ref FT4) 6.45 uIU/m L 0.36-3 .74 high Not Available [facility] (Registration ) [address] [place] [address] [place], [address], 03/10/2024 21:08:02 03/10/20 24 03/10/2024 FREE T4 free T4 0.89 NG/dL 0.76-1 .46 normal Not Available [address] [place], [address] 03/10/2024 21:08:03 03/10/20 24 03/11/2024 HIV-1 /2 AG AB SCREE N HIV-1/2 Ag Ab screen Negati ve negati ve If acute HIV-1 infec tion is suspe cted in a high risk patie nt, submi t plasm a speci men for HIV-1 RNA quant itati on test. Fourt h Gener ation assay perfo rmed on the [employer] ur XPT. Test perfo rmed or refer red by [facility] [address], [place] [address] Not Available [facility] (Registration ) [address] [place] [address] [place], [address], 03/12/2024 09:00:24 03/10/20 24 03/11/2024 HEPAT ITIS C AB W RFLX HCV PCR hepatitis C Ab W rflx HCV PCR Negati ve negati ve Test perfo rmed or refer red by [facility] [address], [place] [address] Not Available [facility] (Registration ) [address] [place] [address] [place], [address], 03/12/2024 09:00:25 03/29/20 24 03/29/2024 VAGIN AL PATHO GEN SCREE N vaginal pathogen screen Vagin al Patho gen Scree n ROSALIND DA NEGAT TANVIR GARDN ERELL A NEGAT TANVIR TRICH OMONA S NEGAT TANVIR Not Available [address] [place], [address] 03/29/2024 21:05:53 06/10/20 24 06/10/2024 TSH (W/RE F FT4) TSH (w/ref FT4) 4.50 uIU/m L 0.36-3 .74 high Not Available [facility] (Registration ) [address] [place] [address] [place], [address], 06/10/2024 15:49:41 06/10/20 24 06/10/2024 TSH (W/RE F FT4) TSH (w/ref FT4) 4.50 uIU/m L 0.36-3 .74 high Not Available [address] [place], [address] 06/10/2024 16:12:29 06/10/20 24 06/10/2024 FREE T4 free T4 0.94 NG/dL 0.76-1 .46 normal Not Available [address] [place], [address] 06/10/2024 16:12:30 06/10/20 24 06/11/2024 THYRO ID ANTIB ODIES thyroglobuli n antibody 137 U/mL <=60 abnormal Not Available [facility] (Registration ) [address] [place] [address] [place], [address], 06/11/2024 16:44:29 06/10/20 24 06/11/2024 THYRO ID ANTIB ODIES thyroperoxid ase antibody >1300 U/mL <=60 abnormal Test perfo rmed or refer red by [facility] [address], [place] [address] Not Available [facility] (Registration ) [address] [place] [address] [place], [address], 06/11/2024 16:44:29 07/21/20 24 07/21/2024 TSH (W/RE F FT4) TSH (w/ref FT4) 3.55 uIU/m L 0.36-3 .74 normal Not Available [address] [place], [address] 07/21/2024 13:04:37 08/16/20 24 08/16/2024 HCG QUANT [...] Month s 10,00 0-100 ,000 Not Available [address] [place], [address] 08/16/2024 14:06:14 08/18/20 24 08/18/2024 HCG QUANT [...] Month s 10,00 0-100 ,000 Not Available [address] [place], [address] 08/18/2024 13:19:37 10/13/20 24 10/15/2024 URINE CULTU RE urine culture Urine Cultu re Proba ble conta minat ed colle ction . APPEA JOHNIE Mixed Gram Posit tanvir Analia APPEA JOHNIE Mixed Gram Posit tanvir Analia COLON Y COUNT Not Available [address] [place], [address] 10/15/2024 08:52:00 10/13/20 24 10/15/2024 URINE CULTU RE urine culture colon ies/m L 10,00 0 - 50,00 0 COLON Y COUNT 50,00 0 - 100,0 00 Day 1 Resul t ISOLA LESVIA BELOW Day 2 Resul t ISOLA LESVIA BELOW O:GPF M (ORGA NISM ID: 1.1) - GRAM POSIT TANVIR ANALIA ,MIXE D Urine Cultu re (ORGA NISM ID: 1.1) - COLON Y COUNT (ORGA NISM ID: 1.1) - 50,00 0 - 100,0 00 Not Available [address] [place], [address] 10/15/2024 08:52:00 10/13/20 24 10/14/2024 CHLAM YDIA/ GC AMPLI FIED RNA chlamydia result Negati ve negati ve Sourc e:Vag inal Test perfo rmed or refer red by [facility] [address] [place] [address] Not Available [address] [place], [address] 10/14/2024 17:19:38 10/13/20 24 10/14/2024 CHLAM YDIA/ GC AMPLI FIED RNA GC result Negati ve negati ve Not Available [address] [place], [address] 10/14/2024 17:19:38 10/13/20 24 10/14/2024 URINE CULTU RE urine culture Urine Cultu re Proba ble conta minat ed colle ction APPEA JOHNIE Mixed Gram Posit tanvir Analia COLON Y COUNT Not Available [address] [place], [address] 10/14/2024 12:17:00 10/13/20 24 10/14/2024 URINE CULTU RE urine culture colon ies/m L 10,00 0 - 50,00 0 Day 1 Resul t ISOLA LESVIA BELOW O:GPF M (ORGA NISM ID: 1.1) - GRAM POSIT TANVIR ANALIA ,MIXE D Urine Cultu re (ORGA NISM ID: 1.1) - COLON Y COUNT (ORGA NISM ID: 1.1) - 10,00 0 - 50,00 0 Not Available [address] [place], [address] 10/14/2024 12:17:00 10/14/20 24 10/17/2024 SYPHI LIS IGG W/REF ALYCIA syphilis IgG w/reflex Nonrea ctive nonrea ctive No serol ogic evide nce of infec tion with T. palli dum (syph ilis) . Repea t testi ng may be consi dered in patie nts with suspe cted acute or prima ry syphi lis in 2-4 weeks . For addit ional infor lilly muñoz on inter preta tion of the syphi lis rever se algor ithm and resul ts, see: [email or web address] :[email or web address] w.march [email or web address] / it-mm files /Syph ilis_ Serol ogy_A lgori thm.[email or web address] df ----- ----- ----- ----R EFERE NCE VALUE ----- ----- ----- ----- ----- - Nonre activ e Test Perfo rmed by: [facility] - App [place] [address] [facility] [place] [address] Lab Direc tor: Shai Oconnor nn Ph.D. ; CLIA# [id number] Not Available [address] [place], [address] 10/18/2024 08:10:56 10/14/20 24 10/15/2024 VARIC RANDY IGG ANTIB SUSANA varicella IgG antibody Positi ve see note Prese nce of detec table Varic randy Zoste r virus IgG antib odies . Test perfo rmed or refer red by [facility] [address], [place] [address] Not Available [address] [place], [address] 10/18/2024 08:10:55 10/14/20 24 10/15/2024 RUBEL LA IGG AB (UVM) rubella IgG Ab (uvm) Positi ve see note Posit tanvir for IgG antib odies to Rubel la virus . Test perfo rmed or refer red by [facility] [address] [place] [address] Not Available [address] [place], [address] 10/18/2024 08:10:55 10/14/20 24 10/14/2024 HEPAT ITIS B SURFA CE AG hepatitis B surface Ag Negati ve negati ve Test perfo rmed or refer red by [facility] [address], [place] [address] Not Available [address] [place], [address] 10/15/2024 08:53:21 10/14/20 24 10/14/2024 HEPAT ITIS C AB W RFLX HCV PCR hepatitis C Ab W rflx HCV PCR Negati ve negati ve Test perfo rmed or refer red by [facility] [address], [place] [address] Not Available [address] [place], [address] 10/15/2024 08:53:21 10/14/20 24 10/14/2024 HIV-1 /2 AG AB SCREE N HIV-1/2 Ag Ab screen Negati ve negati ve If acute HIV-1 infec tion is suspe cted in a high risk patie nt, submi t plasm a speci men for HIV-1 RNA quant itati on test. Fourt h Gener ation assay perfo rmed on the [facility] XPT. Test perfo rmed or refer red by [facility] [address], [place] [address] Not Available [address] [place], [address] 10/15/2024 08:53:16 10/14/20 24 10/14/2024 FREE T4 free T4 0.86 NG/dL 0.76-1 .46 normal Not Available [address] [place], [address] 10/14/2024 17:45:20 10/14/20 24 10/14/2024 TSH (W/RE F FT4) TSH (w/ref FT4) 4.59 uIU/m L 0.36-3 .74 high Not Available [address] [place], [address] 10/14/2024 17:45:19 10/14/20 24 10/14/2024 TSH (W/RE F FT4) TSH (w/ref FT4) 4.59 uIU/m L 0.36-3 .74 high Not Available [address] [place], [address] 10/14/2024 17:08:11 10/14/20 24 10/14/2024 PANOR AMA KIT panorama kit Sent via [employer] Not Available [address] [place], [address] 10/14/2024 15:13:37 10/14/20 24 10/15/2024 VARIC RANDY IGG ANTIB SUSANA varicella IgG antibody Positi ve see note Prese nce of detec table Varic randy Zoste r virus IgG antib odies . Test perfo rmed or refer red by [facility] [address], [place] [address] Not Available [address] [place], [address] 10/15/2024 13:53:17 10/14/20 24 10/15/2024 RUBEL LA IGG AB (UVM) rubella IgG Ab (uvm) Positi ve see note Posit tanvir for IgG antib odies to Rubel la virus . Test perfo rmed or refer red by [facility] [address], [place] [address] Not Available [address] [place], [address] 10/15/2024 13:53:16 10/14/20 24 10/14/2024 HEPAT ITIS B SURFA CE AG hepatitis B surface Ag Negati ve negati ve Test perfo rmed or refer red by [facility] [address], [place] [address] Not Available [address] [place], [address] 10/15/2024 08:53:18 10/14/20 24 10/14/2024 HEPAT ITIS C AB W RFLX HCV PCR hepatitis C Ab W rflx HCV PCR Negati ve negati ve Test perfo rmed or refer red by [facility] [address] [place] [address] Not Available [address] [place], [address] 10/15/2024 08:53:18 10/15/20 24 11/02/2024 CYSTI C FIBRO SIS MUTAT ION PANEL result summary NEGATI VE Not Available [address] [place], [address] 11/02/2024 17:00:33 10/15/20 24 11/02/2024 CYSTI C FIBRO SIS MUTAT ION PANEL result SEE BELOW RESUL T: No patho genic varia nts teste d by this assay were ident ified . Not Available [address] [place], [address] 11/02/2024 17:00:33 10/15/20 24 11/02/2024 CYSTI C FIBRO SIS MUTAT ION PANEL interpretati on See Commen t This resul t indic ates a reduc ed shoshana er risk for cysti c fibro sis (CF). This scree chey panel inclu wm the most commo n patho genic varia nts in CFTR; howev er, it does not compr ehens ively rule out all known disea se-ca using patho genic varia nts in this gene. An indiv idual 's resid ual risk for CF shoshana er statu s varie s by ances try. The table below lists the resid ual risk of being a shoshana er based on ances try. Ances try Prior Risk Resid ual Risk* * ----- ----- ----- ----- ----- ----- ----- ----- ----- ----- ----- ---- Europ eunice Ameri can 12/25 Ashke nazi Jewis h 12/25481 Afric an Ameri can 1493 Hispa maria isabel Ameri can Ameri can* 255 Gener al [place] Popul ation *Does not apply to indiv idual s of [place] antoinette ances try Res idual risk after negat tanvir shoshana er scree n We are unabl e to provi de a mimi ed risk asses sment for ances tries other than those liste d above as there is insuf ficie nt infor matio n avail able about the shoshana er frequ ency and varia nt detec tion rates in other popul ation s. These calcu latio ns are based on the varia nt detec tion rates and popul ation shoshana er frequ encie s noted in the chart . They assum e that this indiv idual is neith er clini unique affec chito with nor has a famil y histo ry of CF. A madiha ic consu ltati on may be of benef it. ----- ----- ----- ----A DDITI ONAL INFOR MATIO N---- ----- ----- ----- CAUTI ONS This assay will not detec t all known patho genic varia nts causi ng cysti c fibro sis (CF) or CFTR- relat ed disor ders. There fore, the absen ce of a detec table varia nt does not rule out the possi bilit y that an indiv idual is a shoshana er of or affec chito with this disea se. A negat tanvir resul t does not elimi alan the risk of shoshana er statu s for any of the inclu ded condi tions , due to the possi bilit y that the patie nt shoshana es a varia nt that is not inter rogat ed with this assay or the rare chanc e of a false -nega tive resul t for a teste d varia nt. For teste d varia nts, the negat tanvir predi ctive value of this scree n is great er than 98%. The patie nt's resid ual risk to be a shoshana er after a negat tanvir scree n is depen dent on ethni c backg round and famil y histo ry. A posit tanvir contr ol was not avail able for all varia nts targe chito on this panel . For more infor lilly parekh ding avail abili ty of a posit tanvir contr ol for each varia nt see Targe chito Varia nts Inter rogat ed by Expan ded Shoshana er Scree n Panel s in Speci al Instr uctio ns. The negat tanvir predi ctive value of these targe ts is unkno wn. Rare polym orphi sms exist that could lead to false -nega tive or false -posi tive resul ts. If resul ts obtai hodan do not match the clini she findi ngs, addit ional testi ng shoul d be consi dered . All detec chito varia nts are evalu ated accor ding to Namita King ge of Medic al Madiha ics and Genom ics recom menda tions . This assay was desig hodan to speci fical ly targe t known patho genic or likel y patho genic varia nts. In rare cases , DNA varia nts of undet ermin ed signi fican ce may be ident ified . The labor atory encou rages healt h care provi ders to conta ct the labor atory at any time to learn how the statu s of a parti cular varia nt may have clements ed over time. Multi ple in-si swathi evalu ation tools may have been used to desmodn t in the inter preta tion of these resul ts. Of note, the sensi tivit y and speci ficit y of these tools for the deter minat ion of patho genic ity is curre ntly unval idate d. Test resul ts shoul d be inter prete d in the ander xt of clini she findi ngs, famil y histo ry, and other labor atory data. Misin terpr etati on of resul ts may occur if the infor matio n provi ded is inacc urate or incom plete . Bone Marro w trans plant s from allog enic donor s will inter fere with testi ng. Call [facility] for instr uctio ns for testi ng patie nts who have recei sirena a bone marro w trans plant . An onlin e resea [place] oppor tunit y clemente d Genom eConn ect (jaqueline mecon nect. org), a proje ct of ClinG en, is avail able for the recip ient of this madiha ic test. This patie nt yohan try colle cts deide ntifi ed madiha ic and healt h infor matio n to advan ce the knowl edge of madiha ic varia nts. [facility] is a colla borat or of Clin[facility]. This may not be appli cable for all tests . TEST CLASS IFICA TION This test was devel oped and its perfo rmanc e alexus cteri stics deter mined by [facility] in a geneva r consi stent with CLIA requi remen ts. This test has not been clear ed or appro sirena by the U.S. Food and Drug Admin istra tion. Not Available [address] [place], [address] 11/02/2024 17:00:33 10/15/20 24 11/02/2024 CYSTI C FIBRO SIS MUTAT ION PANEL method See Jackelin dale genot yping array (buil d GRCh3 7 (hg19 )) was perfo rmed to test for the prese nce of selec t varia nts withi n the CFTR gene (GenB ank acces zully numbe r [id number]) . Rosa Elena dale DNA seque nce juanis sis of the CFTR gene is used to liam fy resul ts of the initi al juanis sis when appro priat e. See www. ayocl inicl abs.c om (Test ID CFMP) for addit ional infor matio n about this test, inclu ding varia nts asses sed by this assay . Not Available [address] [place], [address] 11/02/2024 17:00:33 10/15/20 24 11/02/2024 CYSTI C FIBRO SIS MUTAT ION PANEL specimen WB Whole Blood Not Available [address] [place], [address] 11/02/2024 17:00:33 10/15/20 24 11/02/2024 CYSTI C FIBRO SIS MUTAT ION PANEL released by SEE BELOW RESUL T: [place] M.D., Ph.D. Test Perfo rmed by: [facility] [address] , [facility] [place] [address] Lab Direc tor: Shai Oconnor nn Ph.D. ; CLIA# [id number] Not Available [address] [employer] [place], [place], [address] 11/02/2024 17:00:33 10/15/20 24 10/22/2024 SMA SHOSHANA ER SCREE CHEY result summary SEE BELOW negati ve RESUL T: NEGAT TANVIR FOR SMN1 DELET ION (SEE INTER PRETA TION) Not Available [address] [place], [address] 10/22/2024 16:34:15 10/15/20 24 10/22/2024 SMA SHOSHANA ER SCREE CHEY result See Commen t Two copie s of SMN1 exon 7 were detec chito. One copy of SMN2 was detec chito. The g.271 34T>G polym orphi sm is absen t. Not Available [address] [place], [address] 10/22/2024 16:34:15 10/15/20 24 10/22/2024 SMA SHOSHANA ER SCREE CHEY interpretati on See Commen t This resul t indic ates a reduc ed shoshana er risk for Spina l Muscu lar Atrop hy (SMA) . Pleas e see the table below for resid ual risk based on ances try and absen ce of SMN1 g.271 34T>G (1). Indiv idual s who carry two copie s of the SMN1 gene on one chrom osome and zero copie s of SMN1 on their other chrom osome (i.e. 2+0 shoshana ers) are at risk to have an affec chito child when their partn er is also an SMA shoshana er. Other alter ation s withi n the SMN1 gene, such as point mutat ions, are not detec chito by this assay . Shikha nt Pre-t est Shoshana er Resid ual Risk of (2+0) Ances try Frequ ency SMA Shoshana er Statu s ----- ----- ----- ----- ----- ----- ----- ----- ----- ----- ----- --- Ashke nazi Jewis h 1 in 41.1 1 in 580 1 in 53 1 in 701.8 Afric an 1 in 66 1 in 395.7 Latin o 1 in 117 1 in 1,762 Europ eunice 1 in 35 1 in 769.3 The calcu latio ns noted in the chart are based on known popul ation shoshana er frequ encie s and assum e no famil y histo ry of SMA. We are unabl e to provi de a mimi ed risk asses sment for ances tries other than those liste d as there is insuf ficie nt infor lilly n avail able about the SMA shoshana er frequ ency for other popul ation s. A madiha ic consu ltati on may be of benef it. ----- ----- ----- ----A DDITI ONAL INFOR LILLY Muñoz---- ----- ----- ----- Labor atory develeni oped test (LDT) for SMN1 exon 7, SMN2 exon 7 copy larry fishman and SMN1 [id number] [id number] 9 (g.27 134T> G) detec tion by josue et digit al PCR. Mutat ion nomen clatu re is based on the follo wing GenBa nk Acces zully larry fishman(s) (chidi coreas GR3 7 (hg19 )): [id number]. See www. ayocl inicl abs.c om (Test ID SMNCS ) for addit ional infor lilly muñoz about this test. CAUTI ONS: CLINI SHE CORRE FILIBERTO NS Test resul ts solitario d be inter prete d in ander xt of clini she findi ngs, famil y histo ry, and other labor atory data. Misin terpr etati on of resul ts may occur if the infor matio n provi ded is inacc urate or incom plete . If testi ng was perfo rmed becau se of a famil y histo ry of Spina l Muscu lar Atrop hy, it is often usefu l to first test an affec chito famil y membe r. TECHN ICAL LIMIT ATION S Point mutat ions are undet ectab le by this assay . Nor can the assay discr imina te betwe en two copie s of SMN1 on the same chrom osome versu s two copie s on separ ate chrom osome s. Bone marro w trans plant s from allog enic donor s will inter fere with testi ng. Call [facility] for instr uctio ns for testi ng patie nts who have recei sirena a bone marro w trans plant . TEST CLASS IFICA TION This test was devel oped and its perfo rmanc e alexus cteri stics deter mined by [facility] in a geneva r consi stent with CLIA requi remen ts. This test has not been clear ed or appro sirena by the U.S. Food and Drug Admin istra tion. Not Available [address] , [place], [address] 10/22/2024 16:34:15 10/15/20 24 10/22/2024 SMA SHOSHANA ER SCREE CHEY additional information See Commen t REFER ENCES 1. Madiha Med. 2013;1 6(2): 149-1 56. PMID 53408 250 Not Available [address] [place], [address] 10/22/2024 16:34:15 10/15/20 24 10/22/2024 SMA SHOSHANA ER SCREE CHEY specimen WB Whole Blood Not Available [address] [place], [address] 10/22/2024 16:34:15 10/15/20 24 10/22/2024 SMA SHOSHANA ER SCREE CHEY released by SEE BELOW RESUL T: [place]ierra [place] M.D., Ph.D. Test Perfo rmed by: [facility] - [facility] [address], [place] [address] Lab Direc tor: Shai Oconnor nn Ph.D. ; CLIA# [id number] Not Available [address] [place], [address] 10/22/2024 16:34:15 10/15/20 24 10/15/2024 COMPL ETE BLOOD COUNT W/DIF F WBC 14.88 10_3/ uL 4.4-10 .8 high Not Available [address] [place], [address] 10/15/2024 16:20:13 10/15/20 24 10/15/2024 COMPL ETE BLOOD COUNT W/DIF F RBC 4.34 10_6/ uL 3.93-5 .22 normal Not Available [address] [place], [address] 10/15/2024 16:20:13 10/15/20 24 10/15/2024 COMPL ETE BLOOD COUNT W/DIF F HGB 13.1 g/dL 11.2-1 5.7 normal Not Available [address] [place], [address] 10/15/2024 16:20:13 10/15/20 24 10/15/2024 COMPL ETE BLOOD COUNT W/DIF F HCT 38.9 % 36.0-4 6.0 normal Not Available [address] [place], [address] 10/15/2024 16:20:13 10/15/20 24 10/15/2024 COMPL ETE BLOOD COUNT W/DIF F MCV 90 fL 80-95 normal Not Available Lanette carr [address] [place], [address] 10/15/2024 16:20:13 10/15/20 24 10/15/2024 COMPL ETE BLOOD COUNT W/DIF F MCH 30.2 pg 27.0-3 3.0 normal Not Available [address] [place], [address] 10/15/2024 16:20:13 10/15/20 24 10/15/2024 COMPL ETE BLOOD COUNT W/DIF F MCHC 33.7 % 32.0-3 6.0 normal Not Available [address] [place], [address] 10/15/2024 16:20:13 10/15/20 24 10/15/2024 COMPL ETE BLOOD COUNT W/DIF F RDW 13.4 % 11.7-1 4.6 normal Not Available [address] [place], [address] 10/15/2024 16:20:13 10/15/20 24 10/15/2024 COMPL ETE BLOOD COUNT W/DIF F platelet count 283 10_3/ uL 130-40 0 normal Not Available [address] [place], [address] 10/15/2024 16:20:13 10/15/20 24 10/15/2024 COMPL ETE BLOOD COUNT W/DIF F MPV 10.4 fL 8.0-11 .0 normal Not Available [address] [place], [address] 10/15/2024 16:20:13 10/15/20 24 10/15/2024 COMPL ETE BLOOD COUNT W/DIF F neutrophils % 73.1 % Not Available [address] [place], [address] 10/15/2024 16:20:13 10/15/20 24 10/15/2024 COMPL ETE BLOOD COUNT W/DIF F lymphocytes % 14.7 % Not Available [address] [place], [address] 10/15/2024 16:20:13 10/15/20 24 10/15/2024 COMPL ETE BLOOD COUNT W/DIF F monocytes % 7.3 % Not Available [address] [place], [address] 10/15/2024 16:20:13 10/15/20 24 10/15/2024 COMPL ETE BLOOD COUNT W/DIF F eosinophils % 3.8 % Not Available [address] [place], [address] 10/15/2024 16:20:13 10/15/20 24 10/15/2024 COMPL ETE BLOOD COUNT W/DIF F basophils % 0.4 % Not Available [address] [place], [address] 10/15/2024 16:20:13 10/15/20 24 10/15/2024 COMPL ETE BLOOD COUNT W/DIF F immature grans % 0.7 % Not Available [address] [place], [address] 10/15/2024 16:20:13 10/15/20 24 10/15/2024 COMPL ETE BLOOD COUNT W/DIF F nucleated RBC 0.0 % 0.0-0. 3 normal Not Available [address] [place], [address] 10/15/2024 16:20:13 10/15/20 24 10/15/2024 COMPL ETE BLOOD COUNT W/DIF F absolute neutrophil count 10.88 10_3/ uL 1.2-6. 7 high Not Available [address] [place], [address] 10/15/2024 16:20:13 10/15/20 24 10/15/2024 COMPL ETE BLOOD COUNT W/DIF F absolute lymphocyte count 2.19 10_3/ uL 1.2-3. 4 normal Not Available [address] [place], [address] 10/15/2024 16:20:13 10/15/20 24 10/15/2024 COMPL ETE BLOOD COUNT W/DIF F absolute monocyte count 1.09 10_3/ uL 0.1-0. 8 high Not Available [address] [place], [address] 10/15/2024 16:20:13 10/15/20 24 10/15/2024 COMPL ETE BLOOD COUNT W/DIF F absolute eosinophil count 0.57 10_3/ uL 0.0-0. 7 normal Not Available [address] [place], [address] 10/15/2024 16:20:13 10/15/20 24 10/15/2024 COMPL ETE BLOOD COUNT W/DIF F absolute basophil count 0.06 10_3/ uL 0.0-0. 2 normal Not Available [address] [facility] [place], [address] 10/15/2024 16:20:13 11/09/20 24 11/09/2024 FREE T4 free T4 0.89 NG/dL 0.76-1 .46 normal Not Available [address] [place], [address] 11/09/2024 12:19:33 11/09/20 24 11/09/2024 TSH (W/RE F FT4) TSH (w/ref FT4) 4.82 uIU/m L 0.36-3 .74 high NOTE: Supra -phys iolog ic doses of Bioti n(B7) may cause false negat tanvir resul ts. Not Available [address] [place], [address] 11/09/2024 12:19:32 11/09/20 24 11/09/2024 TSH (W/RE F FT4) TSH (w/ref FT4) 4.82 uIU/m L 0.36-3 .74 high NOTE: Supra -phys iolog ic doses of Bioti n(B7) may cause false negat tanvir resul ts. Not Available [address] [place], [address] 11/09/2024 12:03:32 11/04/20 23 11/04/2023 kellie r monit or Holter Monito r PATIEN T NAME: hCarly huff Ame diony V UNIT #: [id number] ORDERI NG PROVID ER: Lavinia Quiroga M.D. ACCOUN T #: [id number] PRIMAR Y CARE PROVID ER: LAVINIA QUIROGA MD DATE/T MICHELLE OF SERVI CE: : 1989 AMY BARAJASATI ON: YOLETTE NVT ------ ------ --- APPROV ED REPORT [...] ------ - E-Sign Date: E-Sign Time: 09 [email or web address] [facility] [address] [facility] [place], [address] 11/04/2023 12:13:05 08/16/20 24 12/20/2021 imagi ng/di [...] Recorded Time Epidermo id cyst of skin 775639829 Completed 201405/30/2015 Problem Code: L72.3; Problem Code Type: ICD-10; Not Available [facility] 3 04:48:05 Fatigue 99057934 Completed 201505/21/2016 Problem Code: R53.83; Problem Code Type: ICD-10; Not Available [facility] 3 04:48:05 Disorder of skin and/or subcutan eous tissue 60639867 Completed 201508/29/2016 07/05/20 16 - Comments only - Lavinia Quiroga MD - pper her request, she is referred to dermatshelton patricio. Problem Code: L98.9; Problem Code Type: ICD-10; Not Available [facility] 3 04:48:05 Traumati c or non-trau matic injury 576693102 Completed 201507/26/2016 07/05/20 16 - Comments only - Lavinia Quiroga MD - Of her foot, no evidence of fracture , simply monitori ng for now. Problem Code: T14.8; Problem Code Type: ICD-10; Not Available [facility] 3 04:48:05 Localize d enlarged lymph nodes 743627705 Completed 201507/26/2016 07/05/20 16 - Comments only - Lavinia Quiroga MD - This is not diffuse, has been only present for a few days, and is tender, most likely a reactive lymphade nopathy. Return to clinic if she develops diffuse lymphade nopathy Problem Code: R59.0; Problem Code Type: ICD-10; Not Available [facility] 3 04:48:05 Acute upper respirat ory infectio n 01592427 Completed 201611/03/2017 10/20/20 17 - Comments only - Lavinia Quiroga MD - symptoma tic treatmen t with tylenol or NSAIDs, discusse d natural history of viral URI, sytmpoms up to 10-14 days. Problem Code: J06.9; Problem Code Type: ICD-10; Not Available [facility] 3 04:48:06 Adult health examinat ion Active [address], [place], [address] , [facility] 4 22:19:38 Nonulcer dyspepsi a 0783916 [facility] 10:25[facility]18 Allergic rhinitis 12193121 Completed 201708/27/2023 03/07/20 23 - Comments only - Lavinia Quiroga MD - Better with singulai r, and her cough is much better as well. Does continue to loratadi ne as well. Problem Code: J30.9; Problem Code Type: ICD-10; Not Available [facility] 3 04:48:06 Chronic tension- type headache 344407020 Active [address], [place], [address] , [facility] 3 15:42:23 Idiopath ic osteoart hritis 834959940 Active [address], [place], [address] , [facility] 4 22:20:00 Acute upper respirat ory infectio n 17857349 Completed 201802/08/2019 01/25/20 19 - Comments only - Lavinia Quiroga MD - No evidence currentl y of bacteria l superinf ection, somatic treatmen t. Written informat ion for trying to avoid sinusiti s is written and given. Problem Code: J06.9; Problem Code Type: ICD-10; Not Available [facility] 3 04:48:06 Acute upper respirat ory infectio n 10358881 Completed 201806/16/2019 Problem Code: J06.9; Problem Code Type: ICD-10; Not Available [facility] 3 04:48:07 Fatigue 87215818 Completed 201806/16/2019 06/02/20 19 - Comments only - Lavinia Quiroga MD - Will check CBC. She has been anemic in the past. Problem Code: R53.83; Problem Code Type: ICD-10; Not Available [facility] 3 04:48:07 Anemia 809463960 Completed 201806/16/2019 Problem Code: D64.9; Problem Code Type: ICD-10; Not Available [facility] 3 04:48:07 Non-supp urative otitis media 101739147 Completed 201806/16/2019 06/02/20 19 - Comments only - Lavinia Quiroga MD - If symptoms worsen, I gave her a written prescrip tion for amoxicil aida 500 3 times daily to fill. Problem Code: H65.92; Problem Code Type: ICD-10; Not Available [facility] 3 04:48:07 Tinnitus of left ear 55661854938 06 Active 2018 ENT/hear ing evaluati on normal 2019 LAVINIA QUIROGA MD [facility] [address], [place], [address] , [facility]. 4 22:18:27 Neck pain 52494303 Completed 201811/17/2019 11/03/20 19 - Comments only - Lavinia Quiroga MD - Referral to physical therapy Problem Code: M54.2; Problem Code Type: ICD-10; Not Available [facility] 3 04:48:07 Cough 74798958 Completed 201812/13/2019 11/29/20 19 - Comments only - Shelia Solanorahimi Gold AR[employer] TRIMMER - Likely due to post-raeann al drip and irritati on from cold air. Lung sounds clear today with good aeration , no cough heard during patient encounte r. [facility] ed covering mouth/no se while running to avoid cold air and allergy symptom mgmt. Advised of red flag sx requirin g emergenc y care (difficu lty breathin g); [facility] ed f/u if cough or tightnes s in chest while running persists Problem Code: R05; Problem Code Type: ICD-10; Not Available [facility] 3 04:48:08 Francesca soto 46800705 Completed 201812/13/2019 11/29/20 19 - Comments only - Shelia Solanorahimi Reji ARC TRIMMER - Due to history of eczema as a child and current presenta tion, likely eczema. [facility] ed use of emollien t cream and protecti ng from cold air. Problem Code: L85.3; Problem Code Type: ICD-10; Not Available [facility] 3 04:48:08 Mild intermit tent asthma 025702238 Active 2019 LOUIE Storey - [facility]. 4 10:25:14 Contrace ption care manageme nt Active 2019 LOUIE Storey - [facility]. 4 10:22:54 Left upper quadrant pain 579479190 Completed 202009/12/2021 08/29/20 21 - Comments only - Lavinia Quiroga MD - With perhaps a bit of nausea. Labs were drawn today includin g liver function tests and lipase, will get an abdomina l ultrasou nd, and given possibil ity that this is some atypical reflux, will start omeprazo le 20 mg daily. She prefers to get this over-the -counter . Problem Code: R10.12; Problem Code Type: ICD-10; Not Available [facility] 3 04:48:08 Nausea 704610252 Completed 202009/12/2021 Problem Code: R11.0; Problem Code Type: ICD-10; Not Available [facility] 3 04:48:08 Palpitat ions 34981311 Active 2021 reassuri ng holter monitors 12/2021 and 10/2023- PAC and PVCs metoprol ol 10/2023 LAVINIA QUIROGA MD [address], [place], [address] , [facility] 4 22:21:38 Irritabl e bowel syndrome 66168859 Active 2022 PHILIP dahl, [facility] 4 10:25:02 Acute vaginiti s 79896066 Completed 202206/30/2023 06/16/20 23 - Comments only - Lavinia Quiroga MD - vaginal screen obtained today. Problem Code: N76.0; Problem Code Type: ICD-10; Not Available [facility] 3 04:48:09 Anxiety disorder 601338128 Active 2022 PHILIP dahl, [facility] 4 10:25:50 Pelvic and perineal pain 298957601 Completed 202003/07/2023 Problem Code: R10.2; Problem Code Type: ICD-10; Not Available [facility] 3 04:48:10 Gastroes ophageal reflux disease without esophagi tis 149899739 Completed 201708/27/2023 06/02/20 19 - Comments only - Lavinia Quiroga MD - Continue with ranitidi ne. 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[place] an tubes 65393227154 60281 Completed 201803/15/2020 Problem Code: H69.83; Problem Code Type: ICD-10; Not Available [facility] 3 04:48:10 Pain of left wrist 28661610794 9102 Completed 202003/07/2023 Problem Code: M25.532; Problem Code Type: ICD-10; Not Available [facility] 3 04:48:10 Pain of right shoulder joint 84529606433 548593 Completed 201709/13/2020 Problem Code: M25.511; Problem Code Type: ICD-10; Not Available [facility] 3 04:48:11 Vaginal bleeding 777047058 Completed 201704/30/2018 Not Available [facility] 3 04:48:11 Family history of hemochro matosis 837323602 Completed 201508/27/2023 LAVNIIA QUIROGA MD [address], [place], [address] , [facility] 22:16:04 Health conditio n feared but not present 53001561999 9109 Completed 202206/16/2023 Problem Code: Z71.1; Problem Code Type: ICD-10; Not Available [facility] 3 04:48:11 Acute upper respirat ory infectio n 85115709 Completed 202103/07/2023 Problem Code: J06.9; Problem Code Type: ICD-10; Not Available [facility] 3 04:48:11 Uncompli cated mild persiste nt asthma 742289422 Completed 201908/27/2023 03/15/20 20 - Comments only - Lavinia Quiroga MD - Continue wtih the leif [...] J45.30; Problem Code Type: ICD-10; Not Available [facility] 3 04:48:12 History of Lyme disease 497446786 Active 2023 HP[facility]IP dahl, [facility] 4 10:24:38 Rhinitis 03129421 Active 2017 allergic MD [address], [facility] [address] , [facility] 4 22:17:08 Tension- type headache 791696535 Active 2018 Stormy elias dahl, [facility] 4 14:03:32 Family history of hemochro matosis 026615037 Active [address], [place] [address] , [facility] 4 22:16:04 Past pregnanc y history of ectopic pregnanc y 689133168 Active 2016 [place] on [place], treated with medicati ons. MD [address]ian [address], [place] [address] , [facility] 4 22:16:57 Recurren t major depressi on 70833284 Active [address], [place], [address] , [facility] 4 22:19:29 Subclini she hypothyr oidism 61299405 Active [address], [facility] [address] , [facility] 4 22:28:28 Problem Notes None recorded. Procedures Surgical History None recorded. Imaging Results Imaging Date Name Status LastModified by Organiz ation Details LastModified Time 11/04/2023 holter monitor completed [email or web address] [facility] [address] , [place], [address] 11/04/2023 12:13:05 12/20/2021 imaging/diag nostic result completed [email or web address] Information not available 08/16/2024 03:23:56 12/28/2021 imaging/diag nostic result completed [email or web address] Information not available 08/16/2024 03:23:58 11/04/2023 imaging/diag [...] Available Not Avai lable OptiChamb er Fe [facility] spacer USE DIRECTED 03/10 completed Not Available Not Available Not Available Vitals Date Recorded Body height Body mass index (BMI) Body weight Body temperature Heart rate Respiratory rate Systolic blood pressure Diastolic blood pressure Provider Name and Address Organization Details Last Updated DateTime 3 160.02 cm 23.9 kg/m2 34332.9 7 g 98.1 [degF] 64 /min 16 /min 124 mm[Hg] 80 mm[Hg] NICOLETTE HELTON LPN [facility] 3 15:36:39 Date Recorded Body height Body mass index (BMI) Body weight Body temperature Oxygen saturation Oxygen saturation in Arterial blood by Pulse oximetry Heart rate Systolic blood pressure Diastolic blood pressure Provider Name and Address Organization Details Last Updated DateTime 4 160.02 cm 24.2 kg/m2 80749 g 98.1 [degF] 95 % 95 % 80 /min 114 mm[Hg] 58 mm[Hg] JOSEFINA JIMENEZ MA [facility] 4 09:29:02 Date Recorded Body height Body mass index (BMI) Body weight Body temperature Respiratory rate Heart rate Systolic blood pressure Diastolic blood pressure Provider Name and Address Organization Details Last Updated DateTime 4 160.02 cm 24.4 kg/m2 38430.7 5 g 98.2 [degF] 14 /min 76 /min 116 mm[Hg] 84 mm[Hg] NICOLETTE HELTON LPN [facility] 4 15:09:12 Social History Question Answer Notes LastModified by Organization Details LastModified Time Tobacco Smoking Status Never Smoker occassionally in the past NICOLETTE HELTON LPN [facility] 03/10/2024 15:12:04 Would You Say That, In [...] LastModified Time Father Family history of Depression [email or web address] Not available 10/10 04:00:56 Mother Family history of Depression [email or web address] Not available 10/10 04:00:56 Notes:*Problem: Mother: Des [...] 0 0 Immunizations Vaccine Type Date Status Note Provider Nam e and Address Organization Details Recorded Time MMR 0 completed Not Available [facility] 10/10/2023 05:27:43 MMR 8 completed Not Available [facility] 10/10/2023 05:27:44 DTaP, unspecified formulation 4 completed Not Available [facility] 10/10/2023 05:27:44 DTaP, unspecified formulation 9 completed Not Available [facility] 10/10/2023 05:27:44 DTaP, unspecified formulation 9 completed Not Available [facility] 10/10/2023 05:27:44 DTaP, unspecified formulation 0 completed Not Available [facility] 10/10/2023 05:27:44 DTaP, unspecified formulation 9 completed Not Available [facility] 10/10/2023 05:27:44 meningococcal ACWY, unspecified formulation 7 completed Not Available [facility] 10/10/2023 05:27:44 Tdap 1 completed Not Available [facility] 10/10/2023 05:27:44 Tdap 1 completed Not Available [facility] 10/10/2023 05:27:45 HPV, unspecified formulation 8 completed Not Available [facility] 10/10/2023 05:27:45 HPV, unspecified formulation 7 completed Not Available [facility] 10/10/2023 05:27:45 HPV, unspecified formulation 7 completed Not Available [facility] 10/10/2023 05:27:45 Td(adult) unspecified formulation 4 completed Not Available [facility] 10/10/2023 05:27:45 Influenza, split virus, quadrivalent, PF 1 completed Not Available [facility] 10/10/2023 05:27:45 Influenza, split virus, quadrivalent, PF 0 completed Not Available [facility] 10/10/2023 05:27:45 Influenza, MDCK, trivalent, PF 5 completed Not Available [facility] 10/10/2023 05:27:45 COVID-19, mRNA, LNP-S, PF, 30 mcg/0.3 mL dose 1 completed Not Available [facility] 10/10/2023 05:27:45 COVID-19, mRNA, LNP-S, PF, 30 mcg/0.3 mL dose 1 completed Not Available [facility] 10/10/2023 05:27:46 SARS-COV-2 (COVID-19) vaccine, UNSPECIFIED 2 completed Not Available [facility] 10/10/2023 05:27:46 SARS-COV-2 (COVID-19) vaccine, UNSPECIFIED 1 completed Not Available [facility] 10/10/2023 05:27:46 Hep B, unspecified formulation 0 completed Not Available [facility] 10/10/2023 05:27:46 Hep B, unspecified formulation 7 completed Not Available [facility] 10/10/2023 05:27:46 Hep B, unspecified formulation 9 completed Not Available [facility] 10/10/2023 05:27:46 Hep A, unspecified formulation 7 completed Not Available [facility] 10/10/2023 05:27:46 Hep A, unspecified formulation 5 completed Not Available [facility] 10/10/2023 05:27:46 influenza, unspecified formulation 8 completed Not Available [facility] 10/10/2023 05:27:46 influenza, unspecified formulation 9 completed Not Available [facility] 10/10/2023 05:27:47 polio, unspecified formulation 4 completed Not Available [facility] 10/10/2023 05:27:47 polio, unspecified formulation 9 completed Not Available [facility] 10/10/2023 05:27:47 polio, unspecified formulation 9 completed Not Available [facility] 10/10/2023 05:27:47 COVID-19, mRNA, LNP-S, PF, sb-sucrose, 30 mcg/0.3 mL 3 completed Not Available [facility] 12/12/2023 05:33:14 influenza, unspecified formulation 4 completed NICOLETTE HELTON LPN [facility], [place] - [facility] 10/13/2024 13:30:48 Past Encounters Encounter ID Performer Location Encounter Start Date Encounter Closed Date Diagnosis/Indication Diagnosis SNOMED-CT Code Diagnosis ICD10 Code Diagnosis Note [id number] LAVINIA QUIROGA MD [address] [place] [address] 11/14/2023 15:25:50 11/14/2023 16:01:43 Palpitations 88284535 R00.2 10/2023-tr y metoprolol PRN or daily. Bronchospasm 5735643 J98 .01 post infectious [id number] HAJA GARZA [facility] [address] [place] [address] 02/19/2024 09:17:54 02/19/2024 10:01:12 Anxiety 32383143 F41.9 Pt. has good understand ing of her life stressors. She is considerin g a shift in career path in the coming year which should provide great opportunit y to reassess priorities , goals, etc. 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 I also guided her that she should consider getting her who also teaches on the same plan as he is a vector as well. Pt. amenable to these suggestion s and has been contemplat tanvir of doing this anyhow. Mild inter mittent asthma 405949701 J45.20 Given the cold air reactivity , environmen su allergies, she likely minimally has a reactive airway, which can later present with more acute asthma symptoms so leaving this diagnosis isn't unreasonab le. Will monitor. [id number] LAVINIA QUIROGA MD [facility] [address] [place] [address] 03/10/2024 14:51:45 03/10/2024 15:57:19 Adult health examination 260186805 Z00.00 We will try again to track down her most recent [facility] smear at [facility] . She will call over there as well. Subclinica l hypothyroidism 35738775 E02 Night sweats 01907367 R6 1 no weight loss or SAMARIA. NO documented fevers Anxiety 74855157 F41.9 She is hoping that job change will be helpful in lowering the amount of anxiety that she has. Rhinitis 21498463 J00 Renew montelukas t. Palpitations 94354135 R0 0.2 Continue prn metoprolol . [id number] Lynne Drake RN [facility] [address] [place] [address] 06/10/2024 10:23:38 06/10/2024 10:36:34 Hypothyroidism 34122714 E03.9 Health Concerns Section Related Observation LastModified by Organization Detai ls LastModified Time None Recorded Concern Status LastModified by Organization Details LastModified Time None Recorded Advance Directives Directive None Recorded Payers Encounter Date Sequence Insurance Name Policy Number Policy Cruz Covered Member ID Cruz Member ID Guarantor Name 11/14/2023 1 [place] [place] Roxanne V [place] [id number] Roxanne V [place] 02/19/2024 1 [place] Roxanne V [place] [id number] Roxanne V [place] 03/10/2024 1 [place] Roxanne V [place] [id number] Roxanne Beltran 06/10/2024 1 [place] Roxanne Beltran [id number] Roxanne Beltran Notes Date Note Type Note Provider Name and Address Organization Details Recorded Time 11/14/2023 text/html She underwent 48 hour admeasurer 11/04/23, which was totally normal. She had [...] drink any palpitations. MD [address], [place], [address], [facility]. 11/14/2023 16:36:02 02/19/2024 text/html [...] true or not. 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 HAJA G[address], [place], [address], [facility], [facility]. 02/19/2024 11:00:13 03/10/2024 text/html Here for Annual [...] told she too had slightly elevated TSH. LAVINIA QUIROGA MD [address], [place], [address], [facility], [facility]. 03/10/2024 16:48:25 OBGyn Episode No OBEpisode recorded.
--- OUTSIDE RECORDS SUMMARY | 2025-01-04 01:18 | XMS_ITS | Encounter Summary ---
Author Organization [facility] Address [facility] [place] [address] Care Team Providers Care Collection Clerk Name Role Phone Rita Quiroga MD Primary Care Provider [phone] Reason for Visit * Consultation (Routine) - Closed Specialty Diagnoses / Procedures Referred By Zafar jason Referred To Contact Obstetrics and Gynecology Diagnoses Hypothyroidism, unspecified type Supervision of elderly primigravida, unspecified trimester Detailed Morph 19-21 weeks (11/29-12/13) with MFM consult LEVEL 2 AND MFM CONSULT Porsha Dash [address] [place] [address] [facility] [address] [place] [address] Referral ID Status Reason Start Date Expiration Date V isits Requested Visits Authorized [id number] Closed Consult, Test & Treat 10/19/2024 04/18/2025 6 6 Encounter Details Date Type Department Care Team (Late st Contact Info) Description 11/29/2024 10:00 AM EST Office Visit Obstetrics [place] [address] Aracely Grover MD [facility] [place] [address] Primigravida of advanced maternal age in second trimester; Hypothyroidism, unspecified type Social History Tobacco Use Types Packs/Day Years Used Date Smoking Tobacco: Never Smokeless Tobacco: Never Estimated Date of Delivery Comme nts Yes 04/25/2025 Based on Ultraso und Sex and Gender Information Value Date Recorded Sex Assigned at Not on file Gender Identity Not on file Sexual Orientation Not on file documented as of this encounter Last Filed Vital Signs Vital Sign Reading Time Taken Comments Blood Pressure 114/62 11/29/2024 10:06 AM EST Pulse - - Temperature - - Respiratory Rate - - Oxygen Saturation - - Inhaled Oxygen Concentration - - Weight 6.804 kg (15 lb) 11/29/2024 10:06 AM EST Height - - Body Mass Index - - documented in this encounter Progress Notes * Aracely Grover MD - 11/29/2024 10:00 AM EST New [facility] Consult ([facility] I had the pleasure of seeing Roxanne Beltran in the [facility] offices for a detailed morphology exam and [facility] consultation. As you know she is a 34 year old AT 19w0d by 8 week sonogram. Her history is reviewed below. PMH - Hypothyroidism- -currently on synthroid 75mcg (recent increased given TSH > 2.5) - Anxiety- currently controlled with Lexapro and therapy She has no significant past surgical or gynecologic history. There is no family history of recognized genetic disorders or differences. She does not smoke, drink or use non prescribed drugs in . Meds reviewed. ULTRASOUND TODAY: GROWTH RESTRICTION Single intrauterine with a gestational age of19w 0d based on Early Ultrasound (09/16/24) Composite age based on the current ultrasound alone is 19w 3d. Amniotic fluid volume is subjectively normal for gestational age. COMPLETE ANATOMIC SURVEY Detailed anatomic evaluation was performed and no structural abnormalities are noted. Other data: reports a low risk NIPT Counseling today in the [facility] offices. Maternal age of 34: I discussed with Ms. Beltran that the anatomy survey was able to be completed and is unremarkable. I explained that ultrasound has limitations and cannot detect all structural abnormalities orsyndromes but it is a form of genetic screening itself and her residual risk of any chromosomal aneuploidy is further decreased after today's ultrasound. Patient declines diagnostic testing with amniocentesis. We also discussed the small increase risk in cardiometabolic complications. Given her excellent health status I anticipate she will do well. Hypothyroidism: Today we reviewed that well controlled hypothyroidism does not impact outcomes. After roughly 14 weeks the fetus is able to concentrate iodine in the thyroid gland and is no longer dependent on maternal thyroid metabolism. Synthroid should be titrated to keep TSH less than 2.5 or within trimester specific norms. Given her increase this I would recommend returning to pre- doses after delivery. I have not asked Roxanne to return the [facility] offices. Thank you for the opportunity to participate in the care of your patients. If you have any concerns, please don't hesitate to contact me. Time spent: 30 min. Clinical service to/for this patient included hvyd-li-toxk work (obtaining the medical history, performing a medically appropriate examination when appropriate, counseling and educating the patient) and additional work (reviewing medical records and tests, reviewing patient-compl eted health questionnaire, ordering any medications/tests/procedures, documenting in the electronicmedical record, and communicating and coordinating care with other health health care social worker). documented in this encounter Plan of Treatment Scheduled Referrals Name Type Priority Associated Diagnoses Orde r Schedule Referral to Maternal Medicine Outpatient Referral Routine Hypothyroidism, unspecified type Ordered: 10/19/2024 documented as of this encounter Visit Diagnoses Diagnosis Primigravida of advanced maternal age in second trimester Hypothyroidism, unspecified type documented in this encounter Care Teams Collection Clerk Relationship Specialty Start Date End Date Rita Quiroga MD [facility] [address] [place] [address] PCP - General Family Medicine 06/13/20 documented as of this encounter
--- OUTSIDE RECORDS SUMMARY | 2025-01-04 01:18 | XMS_ITS | Encounter Summary ---
Author Organization [facility] Address [address] [place] [address] Care Team Providers Care Cooler Man Name Role Phone Rita Quiroga MD Primary Care Provider [phone] Encounter Details Date Type Department Care Team (Late st Contact Info) Description 03/15/2022 Lab Requisition [facility] Pathology & Laboratory Medicine - [address] [address] Outr Resulting Lab, Provider Social History Tobacco [...] MICROBIOLOGY - GENER AL ORDERABLES Final Result [facility] [address] [place] [address] * COVID-19 TESTING (03/14/2022 13:20 EDT) COVID-19 rt-PCR Result Negative Negative 03/16/2022 10:37 EDT [facility] Comment: This test has not [...] performed using the james SARS-CoV-2 assay ([employer] on the James 6800 System Performing Lab [facility] [address] [facility] Lab 03/16/2022 10:37 EDT [facility] Swab 03/14/2022 13:2 0 EDT 03/15/2022 16:23 EDT us Provider Outr Resulting Lab MICROBIOLOGY - GENER AL ORDERABLES Final Result [facility] [address] [place] [address] documented in this encounter Visit Diagnoses Not on filedocumented in this encounter Care Teams Cooler Man Relationship Specialty Start Date End Date Rita Quiroga MD [address] [place] [phone] PCP - General 04/13/17 documented as of this encounter
--- OUTSIDE RECORDS SUMMARY | 2025-01-04 01:18 | XMS_ITS | Encounter Summary ---
Author Organization [facility] Address [address] [place] [address] Care Team Providers Care Position Description Manager Name Role Phone Rita Quiroga MD Primary Care Provider Reason for Visit * Reason Comments Contraception Encounter Details Date Type Department Care Team ([facility] Contact Info) Description 12/11/2017 15:00 EST Office Visit [facility] OBGYN Services - [address] [id number] Jenifer Baker MD [address] [place] [address], [facility] [address] [place] [address] General counseling and advice for [...] Laura Davis MD - 12/11/2017 1500 EST unloading checker Note Chief Complaint: desires contraceptive counseling Subjective: [...] or tenderness Extremities: warm, well-perfused, non-tender Exam mathematical physicist: Dr. Baker Assessment/Plan: Roxanne Beltran is a [...] separate procedure note. Laura Davis MD PGY-3 [facility] Obstetrics and Gynecology Pager: [phone] Attestation statement: I saw and examined the [...] 7cm. Mirena IUD was placed according to stitch bonding machine drawer in's instructions. Tenaculum was removed and excellent hemostasis was noted. The IUD strings were trimmed to 4cm. The speculum was then removed. Date of insertion: 12/11/2017 IUD Lot #: [id number] Nexplanon was palpated in the LUE. The [...] throughout the procedures. Laura Davis MD PGY-3 [facility] Obstetrics and Gynecology Pager: [phone] documented in this encounter Plan of Treatment [...] mouth. added in this encounter Care Teams Position Description Manager Relationship Specialty Start Date End Date Rita Quiroga MD [address] [place] [phone] PCP - General 04/13/17 documented as of this encounter
--- OUTSIDE RECORDS SUMMARY | 2025-01-04 01:18 | XMS_ITS | Encounter Summary ---
Author Organization [facility] Address [address] [place] [address] Care Team Providers Care Yeast Maker Name Role Phone Rita Quiroga MD Primary Care Provider [phone] Encounter Details Date Type Department Care Team (Late st Contact Info) Description 03/11/2024 Lab Requisition [facility] Pathology & Laboratory Medicine - [address] [address] Outr Resulting Lab, Provider Social History Tobacco [...] 4th Generation Negative Negative 03/11/2024 19:04 EDT [facility] Comment:If acute HIV-1 infec tion is suspected in a high risk patient, submit plasma specimen for HIV-1 RNA quantitation test. Blood VENOUS BLOOD / Unknown 03/10/2024 16:00 EDT 03/11/2024 17:31 EDT Narrative [facility] - 03/11/2024 19:04 EDT Fourth Generation assay performed on the [employer] Centaur XPT. us Provider Outr Resulting Lab IMMUNOLOGY AND SEROL OGY ORDERABLES Final Result [facility] [address] [place] [id number] documented in this encounter Visit Diagnoses Not on filedocumented in this encounter Care Teams Yeast Maker Relationship Specialty Start Date End Date Rita Quiroga MD [address] [place] [phone] PCP - General 04/13/17 documented as of this encounter
--- OUTSIDE RECORDS SUMMARY | 2025-01-04 01:18 | XMS_ITS | Encounter Summary ---
Author Organization [facility] Address [facility] [place] [address] Care Team Providers Care Head Of Drama Name Role Phone Rita Quiroga MD Primary Care Provider [phone] Reason for Referral * Diagnostic Test (Routine) - Closed Specialty Diagnoses / Procedures Referred By Contac t Referred To Contact Radiology Diagnoses Elderly primigravida, delivered Procedures US OB Detailed Morphology Porsha Dash CNM [address] [place] [address] [address] [place] [address] [facility] [place] [address] Referral ID Status Reason Start Date Expiration Date V isits Requested Visits Authorized [id number] Closed Specialty Service Requested 10/20/2024 04/19/2026 1 1 Reason for Visit * Diagnostic Test (Routine) - Closed Specialty Diagnoses / Procedures Referred By Contac t Referred To Contact Radiology Diagnoses Elderly primigravida, delivered Procedures US OB Detailed Morphology Porsha Dash CNM [address] [place] [address] [address] [place] [address] [facility] [place] [address] Referral ID Status Reason Start Date Expiration Date V isits Requested Visits Authorized [id number] Closed Specialty Service Requested 10/20/2024 04/19/2026 1 1 Encounter Details Date Type Department Care Team (Latest Contact Info) Description 11/29/2024 8:50 AM EST - 11/29/2024 11:59 PM EST Hospital Encounter [place] [address] Porsha Dash, [facility] [address] [place] [address] Elderly primigravida, delivered Discharge Disposition: Home Social History Tobacco Use Types Packs/Day Years [...] Sig Dispensed Refills Start Date End Date hydroquinone 4 % Cream Apply nightly to affected areas of the face combine in a pea sized amount with Tretinoin 0.05% 45 g 3 06/14/2020 tretinoin (RETIN-A) 0.05 % Cream apply nightly to affected areas of the face combine in a pea sized amount with Hydroquinone 4% 45 g 3 06/14/2020 escitalopram (Lexapro) 10 mg Tablet Take 10 mg by mouth daily. montelukast (Singulair) 10 mg Tablet Take 10 mg by mouth nightly. loratadine (Claritin) 10 mg Tablet Take 10 mg by mouth daily. documented as of this encounter Plan of Treatment Not on file documented as of this encounter Procedures Procedure Name Priority Date/Time Associated Diagnosis Comments US OB DETAILED MORPHOLOGY Routine 11/29/2024 9:32 AM EST Elderly primigravida, delivered documented in this encounter Results * US OB Detailed Morphology (11/29/2024 9:32 AM EST) WORKSTATION ID [id number] RAD Anatomical Region Laterality Modality Pelvis, Abdomen Ultrasound 11/29/2024 9:30 AM EST Impressions 11/29/2024 9:42 AM EST 2nd Trimester - Detailed Morphology - Summary GROWTH RESTRICTION Single intrauterine with a gestational age of 19w 0d based on Early Ultrasound ??(09/16/24) Composite age based on the current ultrasound alone is 19w 3d. Amniotic fluid volume is subjectively normal for gestational age. COMPLETE ANATOMIC SURVEY Detailed anatomic evaluation was performed and no structural abnormalities are noted. Thank you for letting us participate in the care of this patient. If you are a health care provider and have any questions regarding this report, please contact the number above. For patients who have questions, please contact the health specialist wound care that requested your imaging first. ? Aracely Grover, Pinking Machine Operator Electronically Signed Final Report ?? 11/29/2024 09:41 am Narrative 11/29/2024 9:42 AM EST OBSTETRICS REPORT ?(Signed Final 11/29/2024 09:41 am) PATIENT INFO: ID #: ? [id number] ?: ??[birth year] (34 yrs)(F) Name: ? ROXANNE V ? Visit Date: 11/29/2024 09:30 am ? JA PERFORMED BY: Performed By: ? Laura OMALLEY, ??Yenny Attending: ?Lenore TEJEDA, Aracely Stone Referred By: ?PORSHA DASH Location: ? [place] SERVICE(S) PROVIDED: [facility] - Detailed Morphology - [id number] ? [id number] INDICATIONS: 19 weeks gestation of ?Z3A.19 AMA; HYPOTHYROID EVALUATION: Num Of Fetuses: ? 1 Heart Rate(bpm): ??136 Cardiac Activity: ? Observed, normal rhythm Presentation: ? Breech Placenta: ? Anterior P. Cord Insertion: ?Within Normal Limits Amniotic Fluid MUNDO FV: ?Subjectively normal for gestational age --------- BIOMETRY: --------- BPD: ?44.0 ??mm ? G.Age: ?? 19w 2d OFD: ?58.8 ??mm HC: ?164.3 ??mm ? G.Age: ?? 19w 1d AC: ?139.8 ??mm ? G.Age: ?? 19w 3d FL: ? 30.7 ??mm ? G.Age: ?? 19w 4d HUM: ?30.0 ??mm ? G.Age: ?? 19w 6d CER: ?19.1 ??mm ? G.Age: ?? 18w 4d NFT: ?4.56 ??mm NB: ?6.3 ??mm LV: ?5.4 ??mm CM: ?4.8 ??mm CI: ?74.8 ??% ? 70 - 86 FL/HC: ? 18.7 ??% ? 16.1 - 18.3 HC/AC: ? 1.18 ?1.09 - 1.39 FL/BPD: ?69.8 ??% FL/AC: ? 22.0 ??% ? Est. FW: ? 291 ??gm ?0 lb 10 oz OB HISTORY: Blood Type: ?? O- : ?2 Ectopic: ?1 GESTATIONAL AGE: U/S Today: ? 19w 3d ?NAVJOT: ?? 04/22/25 Best: ?19w 0d ?? Det. By: ??Early ?NAVJOT: ?? 04/25/25 ? Ultrasound ? (09/16/24) TARGETED ANATOMY: Central Nervous System Calvarium/Cranial V.: ??Within Normal Limits Intracranial Gillian: ? Within Normal Limits Cavum: ? Within Normal Limits Parenchyma: ?Within Normal Limits Lateral Ventricles: ?Within Normal Limits Choroid Plexus: ?Within Normal Limits Cereb./Vermis: ? Within Normal Limits Cisterna Magna: ?Within Normal Limits Midline Falx: ?Within Normal Limits Spine Cervical: ?Visualized Thoracic: ?Visualized Lumbar: ?Visualized Sacral: ?Visualized Shape/Curvature: ? Visualized Head/Neck Face: ?Within Normal Limits Lips: ?Within Normal Limits Neck: ?Within Normal Limits Nuchal Fold: ? Within Normal Limits Nasal Bone: ?Present Profile: ? Visualized Orbits/Eyes: ? Visualized Mandible: ?Visualized Maxilla: ? Visualized Thorax Thoracic Contour: ?Within Normal Limits Lungs: ? Visualized 4 Chamber View: ?Within Normal Limits Cardiac Activity: ?Normal Rhythm Rt Outflow Tract: ?Visualized Lt Outflow Tract: ?Visualized Aortic Arch: ? Visualized Ductal Arch: ? Visualized SVC: ? Visualized Cardiac [place]: ?Visualized Diaphragm: ? Visualized 3 Vessel View: ? Visualized IVC: ? Visualized Abdomen Ventral Wall: ?Visualized Cord Insertion: ?Visualized Situs: ? Normal Stomach: ? Visualized Liver: ? Visualized Lt Kidney: ? Visualized Rt Kidney: ? Visualized Bladder: ? Visualized Bowel: ? Visualized Extremities Lt Humerus: ?Within Nomal Limits Rt Humerus: ?Within Normal Limits Lt Forearm: ?Within Normal Limits Rt Forearm: ?Within Normal Limits Lt Hand: ? Within Normal Limits Rt Hand: ? Within Normal Limits Lt Femur: ?Within Normal Limits Rt Femur: ?Within Normal Limits Lt Lower Leg: ?Within Normal Limits Rt Lower Leg: ?Within Normal Limits Lt Foot: ? Visualized Rt Foot: ? Visualized Other Umbilical Cord: ?3 vessel cord Genitalia: ? Female CERVIX UTERUS ADNEXA: Right Ovary Size(cm) ? 2.4 ??x ?? 1.8 ?x ??1.2 ? Vol(ml): 2.7 Visualized Left Ovary Size(cm) ? 2.2 ??x ?? 1.4 ?x ??1.0 ? Vol(ml): 1.6 Visualized Procedure Note Aracely Grover MD - 11/29/2024 OBSTETRICS REPORT (Signed Final 11/29/2024 09:41 am) PATIENT INFO: ID #: [id number] : [birth year] (34 yrs)(F) Name: ROXANNE Ricci Visit Date: 11/29/2024 09:30 am [facility] PERFORMED BY: Performed By: Yenny Sanchez RDMS Attending: Aracely Grover MD Referred By: PORSHA DASH Location: [place] SERVICE(S) PROVIDED: [facility] - Detailed Morphology - [id number] INDICATIONS: 19 weeks gestation of Z3A.19 AMA; HYPOTHYROID EVALUATION: Num Of Fetuses: 1 Heart Rate(bpm): 136 Cardiac Activity: Observed, normal rhythm Presentation: Breech Placenta: Anterior P. Cord Insertion: Within Normal Limits Amniotic Fluid MUNDO FV: Subjectively normal for gestational age --------- BIOMETRY: --------- BPD: 44.0 mm G.Age: 19w 2d OFD: 58.8 mm HC: 164.3 mm G.Age: 19w 1d AC: 139.8 mm G.Age: 19w 3d FL: 30.7 mm G.Age: 19w 4d HUM: 30.0 mm G.Age: 19w 6d CER: 19.1 mm G.Age: 18w 4d NFT: 4.56 mm NB: 6.3 mm LV: 5.4 mm CM: 4.8 mm CI: 74.8 % 70 - 86 FL/HC: 18.7 % 16.1 - 18.3 HC/AC: 1.18 1.09 - 1.39 FL/BPD: 69.8 % FL/AC: 22.0 % 20 - 24 Est. FW: 291 gm 0 lb 10 oz OB HISTORY: Blood Type: O- : 2 Ectopic: 1 GESTATIONAL AGE: U/S Today: 19w 3d NAVJOT: 04/22/25 Best: 19w 0d Det. By: Early NAVJOT: 04/25/25 Ultrasound (09/16/24) TARGETED ANATOMY: Central Nervous System Calvarium/Cranial V.: Within Normal Limits Intracranial Gillian: Within Normal Limits Cavum: Within Normal Limits Parenchyma: Within Normal Limits Lateral Ventricles: Within Normal Limits Choroid Plexus: Within Normal Limits Cereb./Vermis: Within Normal Limits Cisterna Magna: Within Normal Limits Midline Falx: Within Normal Limits Spine Cervical: Visualized Thoracic: Visualized Lumbar: Visualized Sacral: Visualized Shape/Curvature: Visualized Head/Neck Face: Within Normal Limits Lips: Within Normal Limits Neck: Within Normal Limits Nuchal Fold: Within Normal Limits Nasal Bone: Present Profile: Visualized Orbits/Eyes: Visualized Mandible: Visualized Maxilla: Visualized Thorax Thoracic Contour: Within Normal Limits Lungs: Visualized 4 Chamber View: Within Normal Limits Cardiac Activity: Normal Rhythm Rt Outflow Tract: Visualized Lt Outflow Tract: Visualized Aortic Arch: Visualized Ductal Arch: Visualized SVC: Visualized Cardiac [place]: Visualized Diaphragm: Visualized 3 Vessel View: Visualized IVC: Visualized Abdomen Ventral Wall: Visualized Cord Insertion: Visualized Situs: Normal Stomach: Visualized Liver: Visualized Lt Kidney: Visualized Rt Kidney: Visualized Bladder: Visualized Bowel: Visualized Extremities Lt Humerus: Within Nomal Limits Rt Humerus: Within Normal Limits Lt Forearm: Within Normal Limits Rt Forearm: Within Normal Limits Lt Hand: Within Normal Limits Rt Hand: Within Normal Limits Lt Femur: Within Normal Limits Rt Femur: Within Normal Limits Lt Lower Leg: Within Normal Limits Rt Lower Leg: Within Normal Limits Lt Foot: Visualized Rt Foot: Visualized Other Umbilical Cord: 3 vessel cord Genitalia: Female CERVIX UTERUS ADNEXA: Right Ovary Size(cm) 2.4 x 1.8 x 1.2 Vol(ml): 2.7 Visualized Left Ovary Size(cm) 2.2 x 1.4 x 1.0 Vol(ml): 1.6 Visualized IMPRESSION 2nd Trimester - Detailed Morphology - Summary GROWTH RESTRICTION Single intrauterine with a gestational age of 19w 0d based on Early Ultrasound (09/16/24) Composite age based on the current ultrasound alone is 19w 3d. Amniotic fluid volume is subjectively normal for gestational age. COMPLETE ANATOMIC SURVEY Detailed anatomic evaluation was performed and no structural abnormalities are noted. Thank you for letting us participate in the care of this patient. If you are a health care provider and have any questions regarding this report, please contact the number above. For patients who have questions, please contact the health specialist wound care that requested your imaging first. Aracely Grover, Pinking Machine Operator Electronically Signed Final Report 11/29/2024 09:41 am Porsha Dash CNM IM US OB ORDERABLES documented in this encounter Visit Diagnoses Diagnosis Elderly primigravida, delivered documented in this encounter Care Teams Head Of Drama Relationship Specialty Start Date End Date Rita Quiroga MD [address] [place] [address] PCP - General Family Medicine 06/13/20 documented as of this encounter
--- OUTSIDE RECORDS SUMMARY | 2025-01-04 01:18 | XMS_ITS | Encounter Summary ---
Author Organization [facility] [place] [address] Care Team Providers Care Floor Coverings Salesperson Name Role Phone Rita Quiroga MD Primary Care Provider [phone] Encounter Details Date Type Department Care Team (Late st Contact Info) Description 10/21/2024 Telephone Obstetrics [place] [id number] Ilene Hernandez Social History Tobacco Use Types Packs/Day Years [...] on filedocumented in this encounter Care Teams Floor Coverings Salesperson Relationship Specialty Start Date End Date Rita Quiroga MD [facility] [address] [place] [address] PCP - General Family Medicine 06/13/20 documented as of this encounter
--- OUTSIDE RECORDS SUMMARY | 2025-01-04 01:18 | XMS_ITS | Encounter Summary ---
Author Organization [facility] Address [address] [place] [address] Care Team Providers Care Hand Counter Name Role Phone Rita Quiroga MD Primary Care Provider [phone] Encounter Details Date Type Department Care Team (Late st Contact Info) Description 06/10/2024 Lab Requisition [facility] Medicine - [address] [address] Outr Resulting Lab, Provider Social History Tobacco [...] Anti-Thyroglobulin 137(H) <=60 U/mL 2023 10:10 EDT [facility] Thyroperoxidase Ab >1,300(H) <=60 U/mL 2023 10:10 EDT [facility] Blood VENOUS BLOOD / Unknown 06/10/2024 10:30 EDT 06/10/2024 22:43 EDT us Provider Outr Resulting Lab CHEMISTRY & BLOOD GA S ORDERABLES Final Result [facility] [address] [place] [address] documented in this encounter Visit Diagnoses Not on filedocumented in this encounter Care Teams Hand Counter Relationship Specialty Start Date End Date Rita Quiroga MD [address] [place] [phone] PCP - General 04/13/17 documented as of this encounter
--- OUTSIDE RECORDS SUMMARY | 2025-01-04 01:18 | XMS_ITS | Clinical Summary ---
Author Organization [facility] Address [facility] [place] [address] Care Team Providers Care Clod Puller Name Role Phone Rita Quiroga MD Primary Care Provider [phone] Allergies No known active allergies Medications Medication [...] Hydroquinone 4% 45 g 3 06/14/2020 Active Encounters Date Type Department Care Team Description 11/29/2024 10:00 AM EST Office Visit Obstetrics [place] [address] Aracely Grover MD Primigravida of advanced maternal age in second trimester; Hypothyroidism, unspecified type 11/29/2024 8:50 AM EST - 11/29/2024 11:59 PM EST Hospital [place] [address] Radha Dash CNM Elderly primigravida, delivered Discharge Disposition: Home 11/29/2024 Travel 10/21/2024 Telephone Obstetrics [place] [address] Ilene Hernandez 10/19/2024 Transcribe Orders [facility] Incoming Referrals [phone] Radha Dash Kristy, LINDAM Hypothyroidism, unspecified type from Last 3 Months Social History Tobacco Use Types Packs/Day Years [...] - - Body Mass Index - - Plan of Treatment Health Maintenance Due Date Last Done Comments HIV screen 2007 Hepatitis C Screening 2007 Hepatitis B vaccine (0-59 yrs) (1) 2008 Tetanus/Diphtheria/Pertussis Vaccines (1 - Tdap) 03/24 HPV test 2019 PAP Smear 2019 Covid-19 Vaccine (1 - season) 2024 Influenza (Flu) vaccine (1 o f 1 - Influenza standard series) 08/01/2024 RSV Vaccine (No Doses Required) Completed Procedures Procedure Name Priority Date/Time Associated Diagnosis Comments US OB DETAILED MORPHOLOGY Routine 11/29/2024 9:32 AM EST Elderly primigravida, delivered LAB SCAN 10/15/2024 12:00 AM EST from Last 3 Months Results * US OB Detailed Morphology (11/29/2024 9:32 AM EST) WORKSTATION ID [id number] DH RAD Anatomical Region Laterality Modality Pelvis, Abdomen [...] who have questions, please contact the health ambulatory care that requested your imaging first. ? Aracely Grover, Printing Sales Representative Electronically Signed Final Report ?? 11/29/2024 09:41 am Narrative 11/29/2024 9:42 AM EST OBSTETRICS REPORT ?(Signed Final 11/29/2024 09:41 am) PATIENT INFO: ID #: ? [id number] ?: ??[birth year] (34 yrs)(F) Name: ? ROXANNE V ? Visit Date: 11/29/2024 09:30 am ? JA PERFORMED BY: Performed By: ? Laura OMALLEY, ??Yenny Attending: ?Lenore TEJEDA, Aracely Stone Referred By: ?RADHA DASH Location: ? [place] SERVICE(S) PROVIDED: [facility] - Detailed Morphology - [id number] ? [id number] INDICATIONS: 19 weeks gestation of ?Z3A.19 AMA; [...] Arch: ? Visualized SVC: ? Visualized Cardiac [place]: ?Visualized Diaphragm: ? Visualized 3 Vessel View: [...] ? Vol(ml): 1.6 Visualized Procedure Note Aracely Grvoer MD - 11/29/2024 OBSTETRICS REPORT (Signed Final 11/29/2024 09:41 am) PATIENT INFO: ID #: [id number] : [birth year] (34 yrs)(F) Name: ROXANNE Ricci Visit Date: 11/29/2024 09:30 am [facility] PERFORMED BY: Performed By: Yenny Sanchez RDMS Attending: Aracely Grover MD Referred By: RADHA DASH Location: [place] SERVICE(S) PROVIDED: [facility] - Detailed Morphology - [id number] INDICATIONS: 19 weeks gestation of Z3A.19 AMA; [...] Visualized Ductal Arch: Visualized SVC: Visualized Cardiac [place]: Visualized Diaphragm: Visualized 3 Vessel View: Visualized [...] who have questions, please contact the health ambulatory care that requested your imaging first. Aracely Grover, Printing Sales Representative Electronically Signed Final Report 11/29/2024 09:41 am Radha MCKEON IM US OB ORDERABLES * Scan Doc: Lab (10/15/2024 12:00 AM EST) Narrative 10/15/2024 12:00 AM EST Ordered by an unspecified provider. Scanning Provider MEDIA MGR SCAN EXT O RDR/RSLT from Last 3 Months Care Teams Clod Puller Relationship Specialty Start Date End Date Rita Quiroga MD [address] [place], [place] [id number] PCP - General Family Medicine 06/13/20
--- OUTSIDE RECORDS SUMMARY | 2025-01-04 01:18 | XMS_ITS | Encounter Summary ---
Author Organization [facility] Address [address] [place] [address] Care Team Providers Care Weigher Bulker Name Role Phone Rita Quiroga MD Primary Care Provider [phone] Reason for Visit * Reason Onset Date Comments Appointment Related 12/09/2017 Encounter Details Date Type Department Care Team ([facility] Contact Info) Description 12/09/2017 Telephone [facility] OBGYN Services - [address] [address] Christy Stevens RN Appointment Related Social History [...] Encounter - Christy Stevens RN - 12/09/2017 0468 EST Roxanne [place]TE[place]: has to 12/11/17, wants [...] Preg <5 <5 mIU/ml 12/11/2017 12:50 EST [facility] Comment: Reference Range: Negative = <5 Indeterminate = 5-25 recommend repeat in 48 hours. Positive = >25 Blood specimen (specimen) BLOOD SPECIMEN / Unknown 12/11/2017 12:04 EST 12/11/2017 12:12 EST us Jenifer Baker MD CHEMISTRY & BLOOD GAS OR DERABLES Final Result [facility] [address] [place] [address] documented in this encounter Visit Diagnoses Diagnosis Abnormal uterine bleeding- Primary Unspecified disorder of menstruation and other abnormal bleeding from female genital tract documented in this encounter Care Teams Weigher Bulker Relationship Specialty Start Date End Date Rita Quiroga MD [address] [place] [phone] PCP - General 04/13/17 documented as of this encounter
--- OUTSIDE RECORDS SUMMARY | 2025-01-04 01:18 | XMS_ITS | Encounter Summary ---
Author Organization [facility] Address [address] [place] [address] Care Team Providers Care Retirement Actuary Name Role Phone Rita Quiroga MD Primary Care Provider [phone] Encounter Details Date Type Department Care Team (Late Contact Info) Description 12/11/2017 Phlebotomy Only [address] [address] Multifocal Button Grinder, Outpatient Abnormal uterine bleeding (Primary Dx) Social [...] Preg <5 <5 mIU/ml 12/11/2017 12:50 EST [facility] Comment: Reference Range: Negative = <5 Indeterminate = 5-25 recommend repeat in 48 hours. Positive = >25 Blood specimen (specimen) BLOOD SPECIMEN / Unknown 12/11/2017 12:04 EST 12/11/2017 12:12 EST us Jenifer Baker MD CHEMISTRY & BLOOD GAS OR DERABLES Final Result [facility] [address] [place] [address] documented in this encounter Visit Diagnoses Diagnosis Abnormal uterine bleeding- Primary Unspecified disorder of menstruation and other abnormal bleeding from female genital tract documented in this encounter Care Teams Retirement Actuary Relationship Specialty Start Date End Date Rita Quiroga MD [address] [place] [phone] PCP - General 04/13/17 documented as of this encounter
--- OUTSIDE RECORDS SUMMARY | 2025-01-04 01:18 | XMS_ITS | Encounter Summary ---
Author Organization [facility] Address [address] [place] [address] Care Team Providers Care Technical Report Writer Name Role Phone Rita Quiroga MD Primary Care Provider [phone] Encounter Details Date Type Department Care Team (Late Contact Info) Description 10/14/2024 Lab Requisition [facility] Pathology & Laboratory Medicine - [address] [address] Outr Resulting Lab, Provider Social History Tobacco [...] Procedure Name Priority Date/Time Associated Diagnosis Comments RUBELLA IGG ANTIBODY Routine 10/14/2024 15:00 EST VARICELLA IGG ANTIBODY Routine 10/14/2024 15:00 EST documented in this encounter Results * VARICELLA IGG ANTIBODY (10/14/2024 15:00 EST) Varicella IgG Ab Positive See Note 10/15/2024 10:[address] [facility] Comment:Presence of detectab le Varicella Zoster virus IgG antibodies. Blood VENOUS BLOOD / Unknown 10/14/2024 15:00 EST 10/14/2024 21:16 EST us Provider Outr Resulting Lab IMMUNOLOGY AND SEROL OGY ORDERABLES Final Result Performing Organization Address City/[facility]/ZIP Co de Phone Number [facility] [address] [place] [address] * RUBELLA IGG ANTIBODY (10/14/2024 15:00 EST) Rubella IgG Ab Positive See Note 10/15/2024 11:[address] [facility] Comment:Positive for IgG ant ibodies to Rubella virus. Blood VENOUS BLOOD / Unknown 10/14/2024 15:00 EST 10/14/2024 21:16 EST us Provider Outr Resulting Lab CHEMISTRY & BLOOD GA S ORDERABLES Final Result Performing Organization Address [facility] Co de Phone Number [facility] [address] [place], [place] [phone] documented in this encounter Visit Diagnoses Not on filedocumented in this encounter Care Teams Technical Report Writer Relationship Specialty Start Date End Date Rita Quiroga MD [address] [place] [phone] PCP - General 04/13/17 documented as of this encounter
--- OUTSIDE RECORDS SUMMARY | 2025-01-04 01:18 | XMS_ITS | Encounter Summary ---
Author Organization [facility] [facility] [place] [address] Care Team Providers Care Customer Accounts Advisor Name Role Phone Rita Quiroga MD Primary Care Provider [phone] Encounter Details Date Type Department Care Team (Latest Contact Info) Description 11/29/2024 Travel Social History Tobacco Use Types Packs/Day Years [...] on filedocumented in this encounter Care Teams Customer Accounts Advisor Relationship Specialty Start Date End Date Rita Quiroga MD [facility] [address] [place] [address] PCP - General Family Medicine 06/13/20 documented as of this encounter
--- OUTSIDE RECORDS SUMMARY | 2025-01-04 01:18 | XMS_ITS | Encounter Summary ---
Author Organization [facility] Address [facility] [place] [address] Care Team Providers Care Clay Shop Supervisor Name Role Phone Rita Quiroga MD Primary Care Provider [phone] Reason for Visit * Reason Comments Skin Check Encounter Details Date Type Department Care Team (Late st Contact Info) Description 06/13/2020 11:30 AM EDT Office Visit Dermatology at [facility] [address] [place] [address] Laura Donovan MD [facility] [address] VL[address] [place] [address] Solar lentigo; Multiple benign nevi; Melasma; Telangiectasia [...] Melanoma: paternal uncle 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
--- OUTSIDE RECORDS SUMMARY | 2025-01-04 01:18 | XMS_ITS | Encounter Summary ---
Author Organization [facility] Address [address] [place] [address] Care Team Providers Care Intelligence Specialist Name Role Phone Rita Quiroga MD Primary Care Provider [phone] Encounter Details Date Type Department Care Team (Late st Contact Info) Description 02/13/2022 Lab Requisition [facility] Pathology & Laboratory Medicine - [address] [address] John Chavez MD [address] [place] [phone] Left upper quadrant pain; Heartburn; Personal [...] explore management options, if applicable. 02/18/2022 14:03 [facility] Final Diagnosis A. DUODENUM, BIOPSY: - No significant pathologic abnormality B. DUODENUM, BULB, BIOPSY: - No significant pathologic abnormality C. STOMACH, ANTRUM, BIOPSY: - No significant pathologic abnormality D. STOMACH, BODY, BIOPSY: - No significant pathologic abnormality 02/18/2022 14:03 [facility] Attestation By the signature below, the attending physician certifies that they have 1) personally conducted a gross and/or microscopic examination of the described specimen(s), and/or personally interpreted the results of laboratory testing of the described specimen(s), and 2) personally rendered or confirmed the above diagnosis. 02/18/2022 14:03 [facility] at 1403 Clinical History History of GERD, pyrosis, LUQ pain; clinical diagnosis code: R10.12, R12, Z87.19 02/18/2022 14:03 [facility] Gross Description A. Received [...] specimen is submitted entirely in D1. HAJA MORA([facility]) 02/14/2022 10:16 02/18/2022 14:03 EDT [facility] Performing Lab [facility] 02/18/2022 14:03 T [facility] Scanned Images 02/18/2022 14:03 EDT [facility] Tissue ENTIRE STOMACH / Unknown 02/13/2022 9:55 EDT 02/13/2022 23:44 EDT Tissue specimen (specimen) STRUCTURE OF SMALL INTESTINE / Unknown 02/13/2022 9:55 EDT 02/13/2022 23:44 EDT Tissue specimen (specimen) STOMACH STRUCTURE / Unknown 02/13/2022 9:55 EDT 02/13/2022 23:44 EDT Tissue specimen (specimen) STOMACH STRUCTURE / Unknown 02/13/2022 9:55 EDT 02/13/2022 23:44 EDT us John Chavez MD PATHOLOGY ORDERABLES Final Result [facility] [address] [place] [address] documented in this encounter Visit Diagnoses Diagnosis Left upper quadrant pain Abdominal pain, left upper quadrant Heartburn Personal history of other diseases of the digestive system documented in this encounter Care Teams Intelligence Specialist Relationship Specialty Start Date End Date Rita Quiroga MD [address] [place] [phone] PCP - General 04/13/17 documented as of this encounter
--- OUTSIDE RECORDS SUMMARY | 2025-01-04 01:18 | XMS_ITS | Encounter Summary ---
Author Organization [facility] Address [address] [place] [address] Care Team Providers Care Tree Thinner Name Role Phone Rita Quiroga MD Primary Care Provider [phone] Encounter Details Date Type Department Care Team (Late st Contact Info) Description 03/11/2024 Lab Requisition [facility] Pathology & Laboratory Medicine - [address] [address] Outr Resulting Lab, Provider Social History Tobacco [...] C Antibody Negative Negative 03/11/2024 19:02 EDT [facility] Blood VENOUS BLOOD / Unknown 03/10/2024 16:00 EDT 03/11/2024 17:31 EDT us Provider Outr Resulting Lab CHEMISTRY & BLOOD GA S ORDERABLES Final Result Performing Organization Address City/State/[facility] Co de Phone Number [facility] [address] [place] [address] documented in this encounter Visit Diagnoses Not on filedocumented in this encounter Care Teams Tree Thinner Relationship Specialty Start Date End Date Rita Quiroga MD [address] [place] [phone] PCP - General 04/13/17 documented as of this encounter
--- OUTSIDE RECORDS SUMMARY | 2025-01-04 01:18 | XMS_ITS | Clinical Summary ---
Author Organization [facility] Address [address] [place] [address] Care Team Providers Care Hospice Home Care Coordinator Name Role Phone Rita Quiroga MD Primary Care Provider [phone] Allergies No known active allergies Medications escitalopram [...] Department Care Team Description 10/14/2024 Lab Requisition [facility] Pathology & Laboratory [address] [address] Outr Resulting Lab, Provider 10/14/20[address] [facility] Pathology Laboratory [address] [address] Outr Resulting Lab, Provider 10/14/20[address] [facility] Pathology Laboratory [address] [address] Outr Resulting Lab, Provider 10/13/[address] [facility] Pathology & Laboratory [address] [address] Outr Resulting Lab, Provider from Last 3 [...] 10/14/2024, 03/10/2024 Medical Devices Implanted Type Area Roadway Designer Device Identifier Shelf Expiration Date Model / Serial / Lot Paragard Iud-Mr Safe To 3t Description:Per Dr. Dyer's office pt has a Paraguard IUD. These are MRI Safe to 3T. ECW 01/17/12 Procedures Procedure Name Priority Date/Time Associated Diagnosis Comments HEPATITIS B SURFACE ANTIGEN Routine 10/14/2024 15:00 EST HEPATITIS C AB W REFLEX TO HCV RNA BY PCR Routine 10/14/2024 15:00 EST VARICELLA IGG ANTIBODY Routine 10/14/2024 15:00 EST RUBELLA IGG ANTIBODY Routine 10/14/2024 15:00 EST HIV 1/2 ANTIGEN AND ANTIBODY, 4TH GENERATION Routine 10/14/2024 15:00 EST CHLAMYDIA/N. GONORRHOEAE AMPLIFIED NUCLEIC ACID Routine 10/13/2024 10:20 EST from Last 3 Months Results * HEPATITIS C AB W REFLEX TO HCV RNA BY PCR (10/14/2024 15:00 EST) Hep C Antibody Negative Negative 10/14/2024 22:59 EST [facility] Blood VENOUS BLOOD / Unknown 10/14/2024 15:00 EST 10/14/2024 21:16 EST us Provider Outr Resulting Lab CHEMISTRY & BLOOD GA S ORDERABLES Final Result Performing Organization Address City/[facility]/ZIP Co de Phone Number [facility] [address] [place] [address] * RUBELLA IGG ANTIBODY (10/14/2024 15:00 EST) Rubella IgG Ab Positive See Note 10/15/2024 11:02 EST [facility] Comment:Positive for IgG ant ibodies to Rubella virus. Blood VENOUS BLOOD / Unknown 10/14/2024 15:00 EST 10/14/2024 21:16 EST us Provider Outr Resulting Lab CHEMISTRY & BLOOD GA S ORDERABLES Final Result Performing Organization Address [facility]/ZIP Co de Phone Number [facility] [address] [place] [address] * HEPATITIS B SURFACE ANTIGEN (10/14/2024 15:00 EST) Hep B Surface Ag Negative Negative 10/14/2024 22:36 EST [facility] Blood VENOUS BLOOD / Unknown 10/14/2024 15:00 EST 10/14/2024 21:16 EST us Provider Outr Resulting Lab CHEMISTRY & BLOOD GA S ORDERABLES Final Result Performing Organization Address City/[facility]/ZIP Co de Phone Number [facility] [address] [place], [place] [id number] * VARICELLA IGG ANTIBODY (10/14/2024 15:00 EST) Varicella IgG Ab Positive See Note 10/15/2024 10:47 EST [facility] Comment:Presence of detectab le Varicella Zoster virus IgG antibodies. Blood VENOUS BLOOD / Unknown 10/14/2024 15:00 EST 10/14/2024 21:16 EST us Provider Outr Resulting Lab IMMUNOLOGY AND SEROL OGY ORDERABLES Final Result Performing Organization Address [facility] Co de Phone Number [facility] [address] [place] [address] * HIV 1/2 ANTIGEN AND ANTIBODY, 4TH GENERATION (10/14/2024 15:00 EST) Pathologist [facility] HIV 1 and 2 Antibody/p24 Antigen, 4th Generation Negative Negative 10/14/2024 23:05 EST [facility] Comment:If acute HIV-1 infec tion is suspected in a high risk patient, submit plasma specimen for HIV-1 RNA quantitation test. Blood VENOUS BLOOD / Unknown 10/14/2024 15:00 EST 10/14/2024 21:16 EST Narrative [facility] - 10/14/2024 23:05 EST Fourth Generation assay performed on the Siemens Centaur XPT. us Provider Outr Resulting Lab IMMUNOLOGY AND SEROL OGY ORDERABLES Final Result Performing Organization Address [facility]/ZIP Co de Phone Number [facility] [address] [place] [address] * CHLAMYDIA/N. GONORRHOEAE AMPLIFIED NUCLEIC ACID (10/13/2024 10:20 EST) Neisseria gonorrhoeae Result Negative Negative 10/14/2024 12:16 EST [facility] Chlamydia trachomatis Result Negative Negative 10/14/2024 12:16 EST [facility] Swab VAGINAL STRUCTURE / Unknown 10/13/2024 10:20 EST 10/13/2024 17:12 EST us Provider Outr Resulting Lab MICROBIOLOGY - GENER AL ORDERABLES Final Result [facility] [address] [place] [address] from Last 3 Months Insurance Care Teams Hospice Home Care Coordinator Relationship Specialty Start Date End Date Rita Quiroga MD [address] [place] [phone] PCP - General 04/13/17
--- OUTSIDE RECORDS SUMMARY | 2025-01-04 01:18 | XMS_ITS | Referral Summary ---
Author Organization [facility] Address [address] [place] [address] Care Team Providers Care Account Classification Clerk Name Role Phone Rita Quiroga MD Primary Care Provider [phone] Encounters Date Type Department Care Team Description 10/14/2024 Lab Requisition [facility] Pathology & Laboratory [address] [address] Outr Resulting Lab, Provider 10/14/2024 Lab Requisition [facility] Pathology & Laboratory [address] [address] Outr Resulting Lab, Provider 10/14/2024 Lab Requisition [facility] Pathology & Laboratory [address] [address] Outr Resulting Lab, Provider 10/13/2024 Lab Requisition [facility] Pathology & Laboratory [address] [address] Outr Resulting Lab, Provider from Last 3 [...] on file Medical Devices Implanted Type Area Cloth Shearing Supervisor Device Identifier Shelf Expiration Date Model / [...] C Antibody Negative Negative 10/14/2024 22:59 EST [facility] Blood VENOUS BLOOD / Unknown 10/14/2024 15:00 EST 10/14/2024 21:16 EST us Provider Outr Resulting Lab CHEMISTRY & BLOOD GA S ORDERABLES Final Result [facility] [address] [place] [address] * RUBELLA IGG ANTIBODY (10/14/2024 15:00 EST) Rubella IgG Ab Positive See Note 10/15/2024 11:02 EST [facility] Comment:Positive for IgG ant ibodies to Rubella virus. Blood VENOUS BLOOD / Unknown 10/14/2024 15:00 EST 10/14/2024 21:16 EST us Provider Outr Resulting Lab CHEMISTRY & BLOOD GA S ORDERABLES Final Result [facility] [address] [place] [address] * HEPATITIS B SURFACE ANTIGEN (10/14/2024 15:00 EST) Hep B Surface Ag Negative Negative 10/14/2024 22:36 EST [facility] Blood VENOUS BLOOD / Unknown 10/14/2024 15:00 EST 10/14/2024 21:16 EST us Provider Outr Resulting Lab CHEMISTRY & BLOOD GA S ORDERABLES Final Result Performing Organization Address [facility]/ZIP Co de Phone Number [facility] [address] [place] [address] * VARICELLA IGG ANTIBODY (10/14/2024 15:00 EST) Varicella IgG Ab Positive See Note 10/15/2024 10:47 EST [facility] Comment:Presence of detectab le Varicella Zoster virus IgG antibodies. Blood VENOUS BLOOD / Unknown 10/14/2024 15:00 EST 10/14/2024 21:16 EST us Provider Outr Resulting Lab IMMUNOLOGY AND SEROL OGY ORDERABLES Final Result Performing Organization Address [facility]/ZIP Co de Phone Number [facility] [address] [place] [address] * HIV 1/2 ANTIGEN AND ANTIBODY, 4TH GENERATION (10/14/2024 15:00 EST) HIV 1 and 2 Antibody/p24 Antigen, 4th Generation Negative Negative 10/14/2024 23:05 EST [facility] Comment:If acute HIV-1 infec tion is suspected in a high risk patient, submit plasma specimen for HIV-1 RNA quantitation test. Blood VENOUS BLOOD / Unknown 10/14/2024 15:00 EST 10/14/2024 21:16 EST Narrative [facility] - 10/14/2024 23:05 EST Fourth Generation assay performed on the Siemens Centaur XPT. us Provider Outr Resulting Lab IMMUNOLOGY AND SEROL OGY ORDERABLES Final Result Performing Organization Address City/[facility]/ZIP Co de Phone Number [facility] [address] [place] [address] * CHLAMYDIA/N. GONORRHOEAE AMPLIFIED NUCLEIC ACID (10/13/2024 10:20 EST) Pathologist [facility] Neisseria gonorrhoeae Result Negative Negative 10/14/2024 12:16 EST [facility] Chlamydia trachomatis Result Negative Negative 10/14/2024 12:16 EST [facility] Swab VAGINAL STRUCTURE / Unknown 10/13/2024 10:20 EST 10/13/2024 17:12 EST us Provider Outr Resulting Lab MICROBIOLOGY - GENER AL ORDERABLES Final Result Performing Organization Address City/[facility]/ZIP Co de Phone Number [facility] [address] [place] [address] from Last [address] [place] [address] [place] [address] Care Teams Account Classification Clerk Relationship Specialty Start Date End Date Rita Quiroga MD [address] [place] [phone] PCP - General 04/13/17
--- OUTSIDE RECORDS SUMMARY | 2025-01-04 01:18 | XMS_ITS | Encounter Summary ---
Author Organization [facility] Address [address] [place] [address] Care Team Providers Care Youth Care Worker Name Role Phone Rita Quiroga MD Primary Care Provider [phone] Reason for Visit * Reason Onset Date Comments Contraception 11/21/2017 Encounter Details Date Type Department Care Team ([facility] Contact Info) Description 11/21/2017 Telephone [facility] OBGYN Services - [address] [address] Christy Stevens, SANDRO Contraception Social History Tobacco [...] on filedocumented in this encounter Care Teams Youth Care Worker Relationship Specialty Start Date End Date Rita Quiroga MD [address] [place] [phone] PCP - General 04/13/17 documented as of this encounter
--- OUTSIDE RECORDS SUMMARY | 2025-01-04 01:18 | XMS_ITS | Encounter Summary ---
Author Organization [facility] Address [address] [place] [address] Care Team Providers Care Fbi Investigator Name Role Phone Rita Quiroga MD Primary Care Provider [phone] Encounter Details Date Type Department Care Team (Late st Contact Info) Description 02/25/2023 Lab Requisition [facility] Pathology & Laboratory Medicine - [address] [address] Boo Viera MD [address] [place] [phone] Encounter for other general examination Social [...] explore management options, if applicable. 03/04/2023 16:02 [facility] Final Diagnosis A. SOFT TISSUE OF WRIST, LEFT DORSAL, MASS, EXCISION: - Ganglion cyst. 03/04/2023 16:02 [facility] Attestation There was significant resident/fellow involvement in the diagnostic evaluation of this case. By the signature below, the attending physician certifies that they have personally conducted a gross and/or microscopic examination of the described specimens and rendered or confirmed the above diagnosis. 03/04/2023 16:02 [facility] at 1602 Clinical History Left wrist pain 03/04/2023 16:02 [facility] Gross Description A. Received in [...] A1. HAJA BARNETT(ASCP) 02/26/2023 10:57 03/04/2023 16:02 [facility] Resident/Ant w: Kierra Webb DO 03/04/2023 16:02 [facility] Performing Lab [facility] 03/04/2023 16:02 [facility] Scanned Images 03/04/2023 16:02 [facility] Tissue SOFT TISSUE / Unknown 02/25/2023 10:36 EDT 02/26/2023 9:05 EDT us Boo Virea MD PATHOLOGY ORDERABLES Final Res ult [facility] [address] [place] [address] documented in this encounter Visit Diagnoses Diagnosis Encounter for other general examination documented in this encounter Care Teams Fbi Investigator Relationship Specialty Start Date End Date Rita Quiroga MD [address] [place] [phone] PCP - General 04/13/17 documented as of this encounter
--- OUTSIDE RECORDS SUMMARY | 2025-01-04 01:18 | XMS_ITS | Encounter Summary ---
Author Organization [facility] Address [address] [place] [address] Care Team Providers Care Saddle Maker Name Role Phone Rita Quiroga MD Primary Care Provider [phone] Encounter Details Date Type Department Care Team (Late Contact Info) Description 10/14/2024 Lab Requisition [facility] Pathology & Laboratory Medicine - [address] [address] Outr Resulting Lab, Provider Social History Tobacco [...] Surface Ag Negative Negative 10/14/2024 22:36 EST [facility] Blood VENOUS BLOOD / Unknown 10/14/2024 15:00 EST 10/14/2024 21:16 EST us Provider Outr Resulting Lab CHEMISTRY & BLOOD GA S ORDERABLES Final Result Performing Organization Address City/[facility]/ZIP Co de Phone Number [facility] [address] [place] [address] * HEPATITIS C AB W REFLEX TO HCV RNA BY PCR (10/14/2024 15:00 EST) Hep C Antibody Negative Negative 10/14/2024 22:59 EST [facility] Blood VENOUS BLOOD / Unknown 10/14/2024 15:00 EST 10/14/2024 21:16 EST us Provider Outr Resulting Lab CHEMISTRY & BLOOD GA S ORDERABLES Final Result Performing Organization Address [facility] de Phone Number [facility] [address] [place] [phone] documented in this encounter Visit Diagnoses Not on filedocumented in this encounter Care Teams Saddle Maker Relationship Specialty Start Date End Date Rita Quiroga MD [address] [place] [phone] PCP - General 04/13/17 documented as of this encounter
--- OUTSIDE RECORDS SUMMARY | 2025-01-04 01:18 | XMS_ITS | Encounter Summary ---
Author Organization [facility] Address [address] [place] [address] Care Team Providers Care Boom Crane Operator Name Role Phone Rita Quiroga MD Primary Care Provider [phone] Reason for Visit * Reason Onset Date Comments Vaginal Bleeding 08/07/2017 Encounter Details Date Type Department Care Team ([facility] Contact Info) Description 08/07/2017 Telephone [facility] - [address] [address] Lucía Busch RN Vaginal Bleeding Social History [...] appt. Will ask Dr. Herzog. Pt uses [employer] [facility]. OK to leave a detailed message on pt's phone if needed. documented in this encounter Plan of Treatment Not on file documented as of this encounter Visit Diagnoses Not on filedocumented in this encounter Care Teams Boom Crane Operator Relationship Specialty Start Date End Date Rita Quiroga MD [address] [place] [phone] PCP - General 04/13/17 documented as of this encounter
--- OUTSIDE RECORDS SUMMARY | 2025-01-04 01:18 | XMS_ITS | Encounter Summary ---
Author Organization [facility] Address [address] [place] [address] Care Team Providers Care Landscaper Helper Name Role Phone Rita Quiroga MD Primary Care Provider [phone] Reason for Visit * Reason Comments Laser Treatment spider angioma Encounter Details Date Type Department Care Team (Late st Contact Info) Description 06/11/2017 16:00 EDT Office Visit [facility] Dermatology 3rd Floor [facility] [address] [place] [address] Desirae Desai MD [address] [place] [phone] Spider angioma (Primary Dx) Social History Tobacco [...] PULSED DYE LASER OPERATIVE REPORT Laser ID# [id number] PATIENT INFORMATION: Roxanne Beltran : MRN: [id number] SURGEON: Desirae Desai MD SHAREHOLDER: none The risks and benefits of treatment [...] non-neoplastic documented in this encounter Care Teams Landscaper Helper Relationship Specialty Start Date End Date Rita Quiroga MD [address] [place] [phone] PCP - General 04/13/17 documented as of this encounter
--- OUTSIDE RECORDS SUMMARY | 2025-01-04 01:18 | XMS_ITS | Encounter Summary ---
Author Organization [facility] Address [address] [place] [address] Care Team Providers Care Slotter Operator Helper Name Role Phone Rita Quiroga MD Primary Care Provider [phone] Encounter Details Date Type Department Care Team (Late st Contact Info) Description 10/14/2024 Lab Requisition [facility] Pathology & Laboratory Medicine - [address] [address] Outr Resulting Lab, Provider Social History Tobacco [...] 4th Generation Negative Negative 10/14/2024 23:05 EST [facility] Comment:If acute HIV-1 infec tion is suspected in a high risk patient, submit plasma specimen for HIV-1 RNA quantitation test. Blood VENOUS BLOOD / Unknown 10/14/2024 15:00 EST 10/14/2024 21:16 EST Narrative [facility] - 10/14/2024 23:05 EST Fourth Generation assay performed on the Siemens Centaur XPT. us Provider Outr Resulting Lab IMMUNOLOGY AND SEROL OGY ORDERABLES Final Result [facility] [address] [place] [address] documented in this encounter Visit Diagnoses Not on filedocumented in this encounter Care Teams Slotter Operator Helper Relationship Specialty Start Date End Date Rita Quiroga MD [address] [place] [address] [phone] PCP - General 04/13/17 documented as of this encounter
--- OUTSIDE RECORDS SUMMARY | 2025-01-04 01:18 | XMS_ITS | Encounter Summary ---
Author Organization [facility] Address [address] [place] [address] Care Team Providers Care Mold Insert Changer Name Role Phone Rita Quiroga MD Primary Care Provider [phone] Encounter Details Date Type Department Care Team (Late Contact Info) Description 06/20/2023 Lab Requisition [facility] Pathology & Laboratory Medicine - [address] [address] Outr Resulting Lab, Provider Social History Tobacco [...] 1, PCR Negative Negative 06/21/2023 14:50 EDT [facility] Herpes Simplex Virus Molecular Detection 2, PCR Negative Negative 06/21/2023 14:50 EDT [facility] Swab ENTIRE VAGINA / Unknown 06/20/2023 11:45 EDT 06/21/2023 11:43 EDT us Provider Outr Resulting Lab MICROBIOLOGY - GENER AL ORDERABLES Final Result [facility] [address] [place] [address] documented in this encounter Visit Diagnoses Not on filedocumented in this encounter Care Teams Mold Insert Changer Relationship Specialty Start Date End Date Rita Quiroga MD [address] [place] [address] [phone] PCP - General 04/13/17 documented as of this encounter
--- OUTSIDE RECORDS SUMMARY | 2025-01-04 01:18 | XMS_ITS | Encounter Summary ---
Author Organization [facility] Address [address] [place] [address] Care Team Providers Care Agility Instructor Name Role Phone Rita Quiroga MD Primary Care Provider [phone] Encounter Details Date Type Department Care Team (Late Contact Info) Description 10/13/2024 Lab Requisition [facility] Pathology & Laboratory Medicine - [address] [address] Outr Resulting Lab, Provider Social History Tobacco [...] gonorrhoeae Result Negative Negative 10/14/2024 12:16 EST [facility] Chlamydia trachomatis Result Negative Negative 10/14/2024 12:16 EST [facility] Swab VAGINAL STRUCTURE / Unknown 10/13/2024 10:20 EST 10/13/2024 17:12 EST us Provider Outr Resulting Lab MICROBIOLOGY - GENER AL ORDERABLES Final Result [facility] [address] [place], [place] [address] documented in this encounter Visit Diagnoses Not on filedocumented in this encounter Care Teams Agility Instructor Relationship Specialty Start Date End Date Rita Quiroga MD [address] [place] [address] [phone] PCP - General 04/13/17 documented as of this encounter
--- OUTSIDE RECORDS SUMMARY | 2025-01-04 01:18 | XMS_ITS | Encounter Summary ---
Author Organization [facility] [place] [address] Care Team Providers Care Log Clerk Name Role Phone Rita Quiroga MD Primary Care Provider [phone] Reason for Referral * Consultation (Routine) - Closed Specialty Diagnoses / Procedures Referred By Zafar jason Referred To Contact Obstetrics and Gynecology Diagnoses Hypothyroidism, unspecified type Supervision of elderly primigravida, unspecified trimester Detailed Morph 19-21 weeks (11/29-12/13) with MFM consult LEVEL 2 US AND MFM CONSULT Porsha Dash CNM [address] [place] [address] [address] [place] [address] [facility] [address] [phone] Referral ID Status Reason Start Date Expiration Date V isits Requested Visits Authorized [id number] Closed Consult, Test & Treat 10/19/2024 04/18/2025 6 6 Encounter Details Date Type Department Care Team (Late st Contact Info) Description 10/19/2024 Transcribe Orders eDH Incoming Referrals [phone] Porsha Dash CNM [address] [place] [address] [address] [place], [place] [phone] Hypothyroidism, unspecified type Social History Tobacco Use Types Packs/Day Years Used Date Smoking Tobacco: Never Smokeless Tobacco: Never Sex and Gender Information Value Date Recorded Sex Assigned at Not on file Gender Identity Not on file Sexual Orientation Not on file documented as of this encounter Plan of Treatment Scheduled Referrals Name Type Priority Associated Diagnoses Orde r Schedule Referral to Maternal Medicine Outpatient Referral Routine Hypothyroidism, unspecified type Ordered: 10/19/2024 documented as of this encounter Visit Diagnoses Diagnosis Hypothyroidism, unspecified type documented in this encounter Care Teams Log Clerk Relationship Specialty Start Date End Date Rita Quiroga MD [address] [place] [address] PCP - General Family Medicine 06/13/20 documented as of this encounter
--- OUTSIDE RECORDS SUMMARY | 2025-01-04 01:19 | XMS_ITS | Encounter Summary ---
Author Organization [facility] Address [address] [place] [address] Care Team Providers Care Salvage Mend Worker Name Role Phone Phyllis Vega MD Primary Care Provider [phone] Encounter Details Date Type Department Care Team (Late Contact Info) Description 01/26/2014 Phlebotomy Only [address] [address] Car Audio Installer, Outpatient Social History Tobacco Use Types Packs/Day [...] on filedocumented in this encounter Care Teams Salvage Mend Worker Relationship Specialty Start Date End Date Phyllis Vega MD [address] [place] [phone] PCP - General 03/24/09 04/12/17 documented as of this encounter
--- OUTSIDE RECORDS SUMMARY | 2025-01-04 01:19 | XMS_ITS | Encounter Summary ---
Author Organization [facility] Address [address] [place] [address] Care Team Providers Care Wet Trimmer Name Role Phone Rita Quiroga MD Primary Care Provider [phone] Reason for Visit * Reason Comments Contraception Nexplanon insert Encounter Details Date Type Department Care Team ([facility] Contact Info) Description 05/12/2017 9:00 EDT Office Visit [facility] OBGYN Services - [address] [address] Jenifer Baker MD [address] [place] [address], [facility] [address] [place] [address] Nexplanon insertion (Primary Dx); Routine [...] physician and patient. Dressing applied. Lot # [id number] Exp date 03/2018 Patient sent to the [...] EDT) Syphilis Serology Negative 05/13/2017 13:[address] [facility] Comment:Reference Range: Neg ative Blood specimen (specimen) BLOOD SPECIMEN / Unknown 05/12/2017 9:37 EDT 05/12/2017 9:55 EDT Jenifer Baker MD IMMUNOLOGY AND SEROLOGY ORDERABLES Final Result Performing Organization Address [facility] Co de Phone Number [facility] [address] [place] [address] * HIV 1/2 ANTIBODY (05/12/2017 9:37 EDT) HIV 1/2 Antibody Negative Negative 05/12/20 17 12:[address] [facility] Comment: New methodology in use 03/18/17. Fourth generation assay performed on the Siemens Night [employer] Studiosaur. If acute HIV-1 infection is suspected in a high risk patient, submit plasma specimen for HIV-1 RNA quantification test. Blood specimen (specimen) BLOOD SPECIMEN / Unknown 05/12/2017 9:37 EDT 05/12/2017 9:55 EDT Jenifer Baker MD IMMUNOLOGY AND SEROLOGY ORDERABLES Final Result Performing Organization Address [facility] Co de Phone Number [facility] [address] [place] [address] * CHLAMYDIA/N. GONORRHOEAE AMPLIFIED RNA, URINE (05/12/2017 9:26 EDT) Chlamydia Result Negative 05/13/20 17 14:[address] [facility] Comment: This test was developed and its performance characteristics determined by [facility]. It has not been cleared or [...] samples. GC Result Negative 05/13/2017 14:[address] [facility] Comment: This test was developed and its performance characteristics determined by [facility]. It has not been cleared or [...] O RDERABLES Final Result Performing Organization Address City/[facility]/ZIP Co de Phone Number [facility] [address] [place] [address] * POCT TEST, [facility] (05/12/2017 9:12 EDT) UPT Result Neg Neg 05/12/2017 9:[address] [facility] policy change clerks supervisor ID [id number] 05/12/2017 9:[address] [facility] Comment:Test performed at [facility] Urine specimen (specimen) URINE / Unknown 05/12/2017 9:12 EDT 05/12/2017 9:23 EDT Jenifer Baker MD POINT OF CARE TEST ORDER DALLIN Final Result Performing Organization Address City/[facility]/ZIP Co de Phone Number [facility] [address] [place] [address] documented in this encounter Visit Diagnoses Diagnosis [...] mg documented in this encounter Care Teams Wet Trimmer Relationship Specialty Start Date End Date Rita Quiroga MD [address] [place] [phone] PCP - General 04/13/17 documented as of this encounter
--- OUTSIDE RECORDS SUMMARY | 2025-01-04 01:19 | XMS_ITS | Encounter Summary ---
Author Organization [facility] Address [address] [place] [address] Care Team Providers Care Senior Test Engineer Name Role Phone Phyllis Vega MD Primary Care Provider [phone] Encounter Details Date Type Department Care Team (Latest Contact Info) Description 08/11/2015 8:09 EDT - 08/11/2015 23:59 EDT Hospital Encounter [address] [address] Unknown, Provider, MD Discharge Disposition: Home or [...] Code Departure Means Destination Home or Self Long Term documented in this encounter Plan of Treatment Not on file documented as of this encounter Visit Diagnoses Not on filedocumented in this encounter Care Teams Senior Test Engineer Relationship Specialty Start Date End Date Phyllis Vega MD [address] [place] [phone] PCP - General 03/24/09 04/12/17 documented as of this encounter
--- OUTSIDE RECORDS SUMMARY | 2025-01-04 01:19 | XMS_ITS | Encounter Summary ---
Author Organization [facility] Address [address] [place] [address] Care Team Providers Care Population Geneticist Name Role Phone Rita Quiroga MD Primary Care Provider [phone] Reason for Visit * Reason Onset Date Comments Ectopic 04/30/2017 Encounter Details Date Type Department Care Team ([facility] Contact Info) Description 04/30/2017 Telephone [facility] [place] OBGYN Services - [address] [address] Leni Delgado RN Ectopic Social History Tobacco [...] on filedocumented in this encounter Care Teams Population Geneticist Relationship Specialty Start Date End Date Rita Quiroga MD [address] [place] [phone] PCP - General 04/13/17 documented as of this encounter
--- OUTSIDE RECORDS SUMMARY | 2025-01-04 01:19 | XMS_ITS | Encounter Summary ---
Author Organization [facility] Address [address] [place] [address] Care Team Providers Care City Bus Driver Name Role Phone Rita Quiroga MD Primary Care Provider [phone] Reason for Visit * Reason Onset Date Comments Ectopic 04/23/2017 Encounter Details Date Type Department Care Team ([facility] Contact Info) Description 04/23/2017 Telephone [facility] OBGYN Services - [address] [address] Leni Delgado RN Ectopic Social History Tobacco [...] for BCT with Dr. Baker 05/05/17. Aware BENEFITS ANALYST will call with her hcg next week, once available. Roxanne is agreeable to this plan and verbalized understanding. documented in this encounter Plan of Treatment Not on file documented as of this encounter Results * HCG FOR (04/30/2017 12:41 EDT) Quant Beta HCG, Preg <5 <5 mIU/ml 04/30/2017 14:14 EDT [facility] Comment: Reference Range: Negative = <5 Indeterminate = 5-25 recommend repeat in 48 hours. Positive = >25 Blood specimen (specimen) BLOOD SPECIMEN / Unknown 04/30/2017 12:41 EDT 04/30/2017 12:55 EDT us Jenifer Baker MD CHEMISTRY & BLOOD GAS OR DERABLES Final Result [facility] [address] [place] [address] documented in this encounter Visit Diagnoses Diagnosis Tubal without intrauterine - Primary documented in this encounter Care Teams City Bus Driver Relationship Specialty Start Date End Date Rita Quiroga MD [address] [place] [address] [phone] PCP - General 04/13/17 documented as of this encounter
--- OUTSIDE RECORDS SUMMARY | 2025-01-04 01:19 | XMS_ITS | Encounter Summary ---
Author Organization [facility] Address [address] [place] [address] Care Team Providers Care Technical Communicator Name Role Phone Rita Quiroga MD Primary Care Provider [phone] Reason for Visit * Reason Onset Date Comments Ectopic 04/21/2017 Encounter Details Date Type Department Care Team ([facility] Contact Info) Description 04/21/2017 Telephone [facility] OBGYN Services - [address] [address] Leni Delgado RN Ectopic Social History Tobacco [...] Preg 33(H) <5 mIU/ml 04/23/2017 15:36 EDT [facility] Comment: Reference Range: Negative = <5 Indeterminate = 5-25 recommend repeat in 48 hours. Positive = >25 Blood specimen (specimen) BLOOD SPECIMEN / Unknown 04/23/2017 11:22 EDT 04/23/2017 12:58 EDT us Jenifer Baker MD CHEMISTRY & BLOOD GAS OR DERABLES Final Result [facility] [address] [place] [address] documented in this encounter Visit Diagnoses Diagnosis Tubal without intrauterine - Primary documented in this encounter Care Teams Technical Communicator Relationship Specialty Start Date End Date Rita Quiroga MD [address] [place] [address] [phone] PCP - General 04/13/17 documented as of this encounter
--- OUTSIDE RECORDS SUMMARY | 2025-01-04 01:19 | XMS_ITS | Encounter Summary ---
Author Organization [facility] Address [address] [place] [address] Care Team Providers Care Acquisition Marketing Coordinator Name Role Phone Phyllis Vega MD Primary Care Provider [phone] Encounter Details Date Type Department Care Team (Late Contact Info) Description 08/11/2015 Results Only [facility] [phone] Ace Melgoza, [address] [place] [address] Social History Tobacco Use Types Packs/Day Years [...] ROXANNE PERES V ? Accession #: ? [id number] ? : ? 1990 (Age: 25) ??F [...] moderate amount of cytoplasm. ??The melanocytes show activity therapy specialist maturation. ??(Dr. Sales)/joslyn Document reviewed and electronically [...] 1. 08/14/2015 7:28 PM End of Report [facility] 08/11/2015 17:4 7 EDT 08/14/2015 17:47 EDT us Ace Melgoza DO PATHOLOGY ORDERABLES Fi nal Result Performing Organization Address City/State/[facility] Co de Phone Number [facility] [address] [place] [address] documented in this encounter Visit Diagnoses Not on filedocumented in this encounter Care Teams Acquisition Marketing Coordinator Relationship Specialty Start Date End Date Phyllis Vega MD [address] [place] [phone] PCP - General 03/24/09 04/12/17 documented as of this encounter
--- OUTSIDE RECORDS SUMMARY | 2025-01-04 01:19 | XMS_ITS | Encounter Summary ---
Author Organization [facility] Address [address] [place] [address] Care Team Providers Care Cement [address] [employer] [address] Name Role Phone Rita Quiroga MD Primary Care Provider Encounter Details Date Type Department Care Team (Late Contact Info) Description 04/23/2017 Phlebotomy Only [address] [address] Atmospheric Scientist, Outpatient Tubal without intrauterine (Primary Dx) Social [...] 33(H) <5 mIU/ml 04/23/2017 15:36 EDT [facility] Comment: Reference Range: Negative = <5 Indeterminate = 5-25 recommend repeat in 48 hours. Positive = >25 Blood specimen (specimen) BLOOD SPECIMEN / Unknown 04/23/2017 11:22 EDT 04/23/2017 12:58 EDT us Jenifer Baker MD CHEMISTRY & BLOOD GAS OR DERABLES Final Result [facility] [address] [place] [address] documented in this encounter Visit Diagnoses Diagnosis Tubal without intrauterine - Primary documented in this encounter Care Teams [address] [address] [employer] [address] Relationship Specialty Start Date End Date Rita Quiroga MD [address] [place] [phone] PCP - General 04/13/17 documented as of this encounter
--- OUTSIDE RECORDS SUMMARY | 2025-01-04 01:19 | XMS_ITS | Encounter Summary ---
Author Organization [facility] Address [address] [place] [address] Care Team Providers Care Sales Administration Specialist Name Role Phone Rita Quiroga MD Primary Care Provider [phone] Reason for Visit * Reason Onset Date Comments Results 05/14/2017 Encounter Details Date Type Department Care Team ([facility] Contact Info) Description 05/14/2017 Telephone [facility] OBGYN Services - [address] [address] Fide Saenz, SANDRO Results Social History Tobacco [...] blood work done 05/12/17 was negative. Given JUDICIAL REPORTER Triage # for further questions. * Telephone Encounter - Fide Saenz RN - 05/14/[address] Baker: Please let Roxanne know that her STI testing was all negative. documented in this encounter Plan of Treatment Not on file documented as of this encounter Visit Diagnoses Not on filedocumented in this encounter Care Teams Sales Administration Specialist Relationship Specialty Start Date End Date Rita Quiroga MD [address] [place] [phone] PCP - General 04/13/17 documented as of this encounter
--- OUTSIDE RECORDS SUMMARY | 2025-01-04 01:19 | XMS_ITS | Encounter Summary ---
Author Organization [facility] Address [address] [place] [address] Care Team Providers Care Heat Treat Worker Name Role Phone Rita Quiroga MD Primary Care Provider [phone] Reason for Visit * Reason Onset Date Comments Labs Only 04/17/2017 Encounter Details Date Type Department Care Team ([facility] Contact Info) Description 04/17/2017 Orders Only [facility] OBGYN Services - [address] [address] Leni Delgado RN Tubal without intrauterine (Primary [...] Preg 63(H) <5 mIU/ml 04/20/2017 13:22 EDT [facility] Comment: Reference Range: Negative = <5 Indeterminate = 5-25 recommend repeat in 48 hours. Positive = >25 Blood specimen (specimen) BLOOD SPECIMEN / Unknown 04/20/2017 10:43 EDT 04/20/2017 12:32 EDT us Jenifer Baker MD CHEMISTRY & BLOOD GAS OR DERABLES Final Result [facility] [address] [place] [address] documented in this encounter Visit Diagnoses Diagnosis Tubal without intrauterine - Primary documented in this encounter Care Teams Heat Treat Worker Relationship Specialty Start Date End Date Rita Quiroga MD [address] [place] [phone] PCP - General 04/13/17 documented as of this encounter
--- OUTSIDE RECORDS SUMMARY | 2025-01-04 01:19 | XMS_ITS | Encounter Summary ---
Author Organization [facility] Address [address] [place] [address] Care Team Providers Care Last Inserter Name Role Phone Rita Quiroga MD Primary Care Provider [phone] Encounter Details Date Type Department Care Team (Late Contact Info) Description 05/12/2017 Phlebotomy Only [address] [address] Tank Maker Wood, Outpatient Routine screening for STI (sexually transmitted [...] EDT) Syphilis Serology Negative 05/13/2017 13:24 EDT [facility] Comment:Reference Range: Neg ative Blood specimen (specimen) BLOOD SPECIMEN / Unknown 05/12/2017 9:37 EDT 05/12/2017 9:55 EDT Jenifer Baker MD IMMUNOLOGY AND SEROLOGY ORDERABLES Final Result Performing Organization Address [facility] Co de Phone Number [facility] [address] [place] [address] * HIV 1/2 ANTIBODY (05/12/2017 9:37 EDT) HIV 1/2 Antibody Negative Negative 05/12/20 12:31 EDT [facility] Comment: New methodology in use 03/18/17. Fourth generation assay performed on the Siemens Cool[employer] Lightingaur. If acute HIV-1 infection is suspected in a high risk patient, submit plasma specimen for HIV-1 RNA quantification test. Blood specimen (specimen) BLOOD SPECIMEN / Unknown 05/12/2017 9:37 EDT 05/12/2017 9:55 EDT Jenifer Baker MD IMMUNOLOGY AND SEROLOGY ORDERABLES Final Result Performing Organization Address [facility] Co de Phone Number [facility] [address] [place] [address] documented in this encounter Visit Diagnoses Diagnosis Routine screening for STI (sexually transmitted infection)- Primary Screening examination for venereal disease documented in this encounter Care Teams Last Inserter Relationship Specialty Start Date End Date Rita Quiroga MD [address] [place] [address] [phone] PCP - General 04/13/17 documented as of this encounter
--- OUTSIDE RECORDS SUMMARY | 2025-01-04 01:19 | XMS_ITS | Encounter Summary ---
Author Organization [facility] Address [address] [place] [address] Care Team Providers Care Intake Specialist Name Role Phone Rita Quiroga MD Primary Care Provider [phone] Encounter Details Date Type Department Care Team (Late Contact Info) Description 04/13/2017 Phlebotomy Only [address] [address] Generation Technician, Outpatient Other specified related conditions, first trimester [...] Preg 267(H) <5 mIU/ml 04/13/2017 11:33 EDT [facility] Comment: Reference Range: Negative = <5 Indeterminate = 5-25 recommend repeat in 48 hours. Positive = >25 Blood specimen (specimen) BLOOD SPECIMEN / Unknown 04/13/2017 9:36 EDT 04/13/2017 10:49 EDT us Christine Michelle MOHS SURGEON/GENERAL DERMATOLOGIST CHEMISTRY & BLOOD GAS ORDER DALLIN Final Result [facility] [address] [place] [address] documented in this encounter Visit Diagnoses Diagnosis Other specified related conditions, first trimester- Primary documented in this encounter Care Teams Intake Specialist Relationship Specialty Start Date End Date Rita Quiroga MD [address] [place] [phone] PCP - General 04/13/17 documented as of this encounter
--- OUTSIDE RECORDS SUMMARY | 2025-01-04 01:19 | XMS_ITS | Encounter Summary ---
Author Organization [facility] Address [address] [place] [address] Care Team Providers Care Powered Bridge Specialist Name Role Phone Rita Quiroga MD Primary Care Provider [phone] Encounter Details Date Type Department Care Team (Late st Contact Info) Description 04/13/2017 Orders Only Non [facility] Ancillary Services Christine Michelle, ANIMATION CAMERA OPERATOR [address] [place] [address] Other specified related conditions, first [...] Preg 287(H) <5 mIU/ml 04/15/2017 11:32 EDT [facility] Comment: Reference Range: Negative = <5 Indeterminate = 5-25 recommend repeat in 48 hours. Positive = >25 Blood specimen (specimen) BLOOD SPECIMEN / Unknown 04/15/2017 10:03 EDT 04/15/2017 10:45 EDT us Christine Michelle ANIMATION CAMERA OPERATOR CHEMISTRY & BLOOD GAS ORDER DALLIN Final Result [facility] [address] [place] [address] documented in this encounter Visit Diagnoses Diagnosis Other specified related conditions, first trimester- Primary documented in this encounter Care Teams Powered Bridge Specialist Relationship Specialty Start Date End Date Rita Quiroga MD [address] [place] [phone] PCP - General 04/13/17 documented as of this encounter
--- OUTSIDE RECORDS SUMMARY | 2025-01-04 01:19 | XMS_ITS | Encounter Summary ---
Author Organization [facility] Address [address] [place] [address] Care Team Providers Care Patient Companion Name Role Phone Phyllis Vega MD Primary Care Provider [phone] Reason for Visit * Reason Comments Eye Flashes And/Or Floaters Increase in Floater, both eyes (blue spots). Worse if Pt is stressed out. Stopped Celexa last summer. No flashes or eyepain. Vision stable, no changes. Encounter Details Date Type Department Care Team (Late st Contact Info) Description 12/24/2011 8:00 EST Office Visit [facility] Ophthalmology - [address] [address] Daljit Dyer MD [address] [place] [address], [address] [place] [address] Social History Tobacco Use Types [...] MD - 12/24/20112132 EST DIVISION [facility]ALMOLOGY [facility] December 24, 2011 Phyllis Vega MD [address] [address] Vega: Roxanne Beltran was reexamined [...] MD - Job ID: SM Doc ID: [id number] [facility] Doc ID: [id number] cc: Phyllis Vega MD * Daljit Dyer [...] Applanation Time: 9:02 Wearing Rx Sphere Cylinder [place] Right +0.75 +3.00 095 Left -0.25 +0.25 100 Type: Reading Wearing Rx #2 Sphere Cylinder [place] Right +1.25 +2.50 91 Left -0.25 +0.25 [...] syneresis Unspecified chorioretinal scar PLAN: Test Performed: [facility] Indications for test: photopsia/ headache Results/Findings: WNL each eye Plan: MRI head documented in this encounter Miscellaneous Notes * Scanned Note-Null - Jackhammer Splitter Operator, Scan - 12/25/2011 0954 EST documented in [...] ORDER DALLIN Final Result Performing Organization Address [facility] Co de Phone Number [facility] [address] [place] [address] * BUN (12/30/2011 13:42 EST) BUN 13 10 - 26 mg/dl [facility] Blood specimen (specimen) 12/30/2011 13:42 EST 12/30/2011 14:26 EST Daljit Dyer MD CHEMISTRY & BLOOD GAS ORDER DALLIN Final Result Performing Organization Address [facility] Co de Phone Number [facility] [address] [place] [address] documented in this encounter Visit Diagnoses Diagnosis [...] syne resis Wearing Rx #1 Sphere Cylinder [place] Right eye +0.75 +3.00 095 Left eye -0.25 +0.25 100 Type: Reading Wearing Rx #2 Sphere Cylinder [place] Right eye +1.25 +2.50 91 Left eye -0.25 +0.25 96 Type: SVL Manifest Refraction Sphere Cylinder Right eye -0.25 clearer Left eye -0.25 clearer Care Teams Patient Companion Relationship Specialty Start Date End Date Phyllis Vega MD [address] [place] [phone] PCP - General 03/24/09 04/12/17 documented as of this encounter
--- OUTSIDE RECORDS SUMMARY | 2025-01-04 01:19 | XMS_ITS | Encounter Summary ---
Author Organization [facility] Address [address] [place] [address] Care Team Providers Care Catalogue Maker Name Role Phone Phyllis Vega MD Primary Care Provider [phone] Reason for Visit * Reason Onset Date Comments Provider Referred 07/08/2016 Encounter Details Date Type Department Care Team (Late st Contact Info) Description 07/08/2016 Telephone [facility] Dermatology 3rd Floor [facility] [address] [place] [address] Dee Steen MD [address] [place] [address] [place] [phone] Provider Referred Social History Tobacco Use Types [...] Elsi Maher RN * Telephone Encounter - Jerry Hernandez - 07/08/2016 1604 EDT Notes received from Rita Quiroga MD referring patient for a non healing lesion on nose. Please call patient to schedule. documented in this encounter Plan of Treatment Not on file documented as of this encounter Visit Diagnoses Not on filedocumented in this encounter Care Teams Catalogue Maker Relationship Specialty Start Date End Date Phyllis Vega MD [address] [place] [phone] PCP - General 03/24/09 04/12/17 documented as of this encounter
--- OUTSIDE RECORDS SUMMARY | 2025-01-04 01:19 | XMS_ITS | Encounter Summary ---
Author Organization [facility] Address [address] [place] [address] Care Team Providers Care Predatory Animal Exterminator Name Role Phone Rita Quiroga MD Primary Care Provider [phone] Encounter Details Date Type Department Care Team (Late Contact Info) Description 04/15/2017 Phlebotomy Only [address] [address] Livestock Farmer, Outpatient Other specified related conditions, first trimester [...] Preg 287(H) <5 mIU/ml 04/15/2017 11:32 EDT [facility] Comment: Reference Range: Negative = <5 Indeterminate = 5-25 recommend repeat in 48 hours. Positive = >25 Blood specimen (specimen) BLOOD SPECIMEN / Unknown 04/15/2017 10:03 EDT 04/15/2017 10:45 EDT us Chritsine Michelle CONE CLASSIFIER TENDER CHEMISTRY & BLOOD GAS ORDER DALLIN Final Result [facility] [address] [place] [address] documented in this encounter Visit Diagnoses Diagnosis Other specified related conditions, first trimester- Primary documented in this encounter Care Teams Predatory Animal Exterminator Relationship Specialty Start Date End Date Rita Quiroga MD [address] [place] [phone] PCP - General 04/13/17 documented as of this encounter
--- OUTSIDE RECORDS SUMMARY | 2025-01-04 01:19 | XMS_ITS | Encounter Summary ---
Author Organization [facility] Address [address] [place] [address] Care Team Providers Care Mud Analysis Well Logging Captain Name Role Phone Phyllis Vega MD Primary Care Provider [phone] Reason for Visit * Reason Comments Migraine Ref from Dr. Sal and [facility] office. Ocular migraine, Myopia, Vitreous syneresis [...] Info) Description 06/12/2011 8:00 EDT Office Visit [facility] Ophthalmology - [address] [address] Daljit Dyer MD [address] [facility], [address] [place] [address] Social History Tobacco Use Types [...] - 06/20/2011 0803 EDT DIVISION OF OPHTHALMOLOGY [facility]PER[facility] June 12, 2011 Sixto Lopes MD [facility] - Ophthalmology [address] [place] [address] Lopes: Roxanne Beltran was examined [...] - GIORGI Job ID: SM Doc ID: [id number] Ext Doc ID: [id number] cc: MD Phyllis Bal MD * Daljit Dyer MD - 06/12/2011 0947 EDT [facility] Ophthalmology Exam Visual Acuity Right Left Dist sc 20/20 20/20 Near cc J1+ J1+ Method: Snellen - Linear Correction: Glasses Tonometry Right Left Pressure 13 13 Method: Applanation Time: 8:56 Wearing Rx Sphere Cylinder [place] Right +1.25 +2.50 92 Left -0.25 +0.25 98 Age: 5 yrs Type: SINGLE Manifest Refraction (Auto) Sphere Cylinder [place] Dist Right +1.25 +2.00 91 20/15 Left [...] has been dictated and scanned. Test Performed: [facility] 24-2 Indications for test: Ocular migraine Results/Findings: WNL each eye Plan: FU prn documented in this encounter Miscellaneous Notes * Scanned Note-Null - Eliel, Glove Sewer - 06/14/2011 1131 EDT documented in this [...] in both eyes Wearing Rx Sphere Cylinder [place] Right eye +1.25 +2.50 92 Left eye -0.25 +0.25 98 Age: 5 yrs Type: SINGLE Manifest Refraction (Auto) Sphere Cylinder [place] Dist [place] Right eye +1.25 +2.00 91 20/15 Left eye -1.25 +0.25 111 20/15 Care Teams Mud Analysis Well Logging Captain Relationship Specialty Start Date End Date Phyllis Vega MD [address] [place] [phone] PCP - General 03/24/09 04/12/17 documented as of this encounter
--- OUTSIDE RECORDS SUMMARY | 2025-01-04 01:19 | XMS_ITS | Encounter Summary ---
Author Organization [facility] Address [address] [place] [address] Care Team Providers Care Crewman Armoured Personnel Carrier M113 Name Role Phone Rita Quiroga MD Primary Care Provider [phone] Reason for Visit * Reason Onset Date Comments Appointment Related 04/30/2017 Encounter Details Date Type Department Care Team (Late st Contact Info) Description 04/30/2017 Telephone [facility] Dermatology 3rd Floor [address] [address] Desirae Desai MD [address] [place] [address] Appointment Related Social History Tobacco Use [...] on filedocumented in this encounter Care Teams Crewman Armoured Personnel Carrier M113 Relationship Specialty Start Date End Date Rita Quiroga MD [address] [place] [phone] PCP - General 04/13/17 documented as of this encounter
--- OUTSIDE RECORDS SUMMARY | 2025-01-04 01:19 | XMS_ITS | Encounter Summary ---
Author Organization [facility] Address [address] [place] [address] Care Team Providers Care Brewery Pumper Name Role Phone Rita Quiroga MD Primary Care Provider [phone] Reason for Visit * Reason Onset Date Comments Appointment Related 04/17/2017 Encounter Details Date Type Department Care Team (Late st Contact Info) Description 04/17/2017 Telephone [facility] Dermatology 5th Floor [address] [address] Ana Hale PA-C [address] [place] [address] [place] [phone] Appointment Related Social History Tobacco Use Types [...] Encounter - Jayne Mcdaniel RN - 04/17/2017 1227 EDT Patient originally referred on 07/08/[address] Rita Quiroga, [facility] for lesion, face - spot on nose [...] darker red in the middle, then gets apartment assistant manager towards the edges Fairly circular Denies pain, [...] on filedocumented in this encounter Care Teams Brewery Pumper Relationship Specialty Start Date End Date Rita Quiroga MD [address] [place] [phone] PCP - General 04/13/17 documented as of this encounter
--- OUTSIDE RECORDS SUMMARY | 2025-01-04 01:19 | XMS_ITS | Encounter Summary ---
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 [...] management documented in this encounter Care Teams Accounting Machine Servicer Relationship Specialty Start Date End Date Rita Quiroga MD [address] [place] [phone] PCP - General 04/13/17 documented as of this encounter
--- OUTSIDE RECORDS SUMMARY | 2025-01-04 01:19 | XMS_ITS | Encounter Summary ---
Author Organization [facility] Address [address] [place] [address] Care Team Providers Care Metal Washing Machine Operator Name Role Phone Phyllis Vega MD Primary Care Provider [phone] Encounter Details Date Type Department Care Team (Late st Contact Info) Description 12/30/2011 13:31 EST - 12/30/2011 23:59 EST Hospital Encounter [facility] [address] [place] [address] Daljit Dyer MD 111 [facility], [facility] [address] [place] [address] Discharge Disposition: Home or Self [...] filedocumented in this encounter Care Teams Metal Washing Machine Operator Relationship Specialty Start Date End Date Phyllis Vega MD [address] [place] [phone] PCP - General 03/24/09 04/12/17 documented as of this encounter
--- OUTSIDE RECORDS SUMMARY | 2025-01-04 01:19 | XMS_ITS | Encounter Summary ---
Author Organization [facility] Address [address] [place] [address] Care Team Providers Care Surg Tech Name Role Phone Rita Quiroga MD Primary Care Provider Encounter Details Date Type Department Care Team (Late Contact Info) Description 04/20/2017 Phlebotomy Only [facility] - [address] [address] Work Car Operator, Outpatient Tubal without intrauterine (Primary Dx) Social [...] Preg 63(H) <5 mIU/ml 04/20/2017 13:22 EDT [facility] Comment: Reference Range: Negative = <5 Indeterminate = 5-25 recommend repeat in 48 hours. Positive = >25 Blood specimen (specimen) BLOOD SPECIMEN / Unknown 04/20/2017 10:43 EDT 04/20/2017 12:32 EDT us Jenifer Baker MD CHEMISTRY & BLOOD GAS OR DERABLES Final Result [facility] [address] [place] [address] documented in this encounter Visit Diagnoses Diagnosis Tubal without intrauterine - Primary documented in this encounter Care Teams Surg Tech Relationship Specialty Start Date End Date Rita Quiroga MD [address] [place] [phone] PCP - General 04/13/17 documented as of this encounter
--- OUTSIDE RECORDS SUMMARY | 2025-01-04 01:19 | XMS_ITS | Encounter Summary ---
Author Organization [facility] Address [address] [place] [address] Care Team Providers Care Retail Sales Associate Name Role Phone Phyllis Vega MD Primary Care Provider [phone] Reason for Visit * Reason Comments Eye Problem Patient states blue spots in vision. Patient thinks left eye, but not positive. Increased frequency with fatigue, but other times as well. Denies headache, itch, burn, or tearing. Occasional floaters. Encounter Details Date Type Department Care Team (Late st Contact Info) Description 10/30/2011 11:00 EST Office Visit [facility] Ophthalmology - [address] [address] Daljit Dyer MD [address] [facility], [address] [place] [address] Social History Tobacco Use Types [...] Applanation Time: 11:45 Wearing Rx Sphere Cylinder [place] Right +0.75 +3.00 095 Left -0.25 +0.25 [...] to call if change. PLAN: Test Performed: [facility] 24-2 Indications for test: photopsias/ocular migraine Results/Findings: WNL Plan: FU prn. documented in this encounter Miscellaneous Notes * Scanned Note-Null - County Surveyor, Scan - 10/30/2011 1513 EST documented in [...] TI No TI Wearing Rx Sphere Cylinder [place] Right eye +0.75 +3.00 095 Left eye -0.25 +0.25 100 Age: 4yrs Type: Reading Patient states using glasses mainly for reading. Care Teams Retail Sales Associate Relationship Specialty Start Date End Date Phyllis Vega MD [address] [place] [phone] PCP - General 03/24/09 04/12/17 documented as of this encounter
--- OUTSIDE RECORDS SUMMARY | 2025-01-04 01:19 | XMS_ITS | Encounter Summary ---
Author Organization [facility] Address [address] [place] [address] Care Team Providers Care Machine Mover Name Role Phone Rita Quiroga MD Primary Care Provider Encounter Details Date Type Department Care Team (Late st Contact Info) Description 04/30/2017 9:55 EDT - 04/30/2017 23:59 EDT Hospital Encounter [address] [address] Jenifer Baker MD [address] [place] [address], [facility] [address] [place] [address] Discharge Disposition: Home or Self [...] on filedocumented in this encounter Care Teams Machine Mover Relationship Specialty Start Date End Date Rita Quiroga MD [address] [place] [phone] PCP - General 04/13/17 documented as of this encounter
--- OUTSIDE RECORDS SUMMARY | 2025-01-04 01:19 | XMS_ITS | Encounter Summary ---
Author Organization [facility] Address [address] [place] [address] Care Team Providers Care Inspector Fibrous Wallboard Name Role Phone Rita Quiroga MD Primary Care Provider [phone] Encounter Details Date Type Department Care Team (Latest Contact Info) Description 04/13/2017 9:25 EDT - 04/13/2017 23:59 EDT Hospital Encounter [address] [address] Christine Michelle, EARLY CHILDHOOD EDUCATION SPECIALIST [address] [place] [address] Discharge Disposition: Auto Discharge Social [...] on filedocumented in this encounter Care Teams Inspector Fibrous Wallboard Relationship Specialty Start Date End Date Rita Quiroga MD [address] [place] [phone] PCP - General 04/13/17 documented as of this encounter
--- OUTSIDE RECORDS SUMMARY | 2025-01-04 01:19 | XMS_ITS | Encounter Summary ---
Author Organization [facility] Address [address] [place] [address] Care Team Providers Care Bobcat Driver/Labor Name Role Phone Rita Quiroga MD Primary Care Provider [phone] Reason for Visit * Reason Onset Date Comments Ectopic 04/25/2017 Encounter Details Date Type Department Care Team ([facility] Contact Info) Description 04/25/2017 Telephone [facility] OBGYN Services - [address] [address] Dania Ashley RN Ectopic Social History Tobacco [...] on filedocumented in this encounter Care Teams Bobcat Driver/Labor Relationship Specialty Start Date End Date Rita Quiroga MD [address] [place] [phone] PCP - General 04/13/17 documented as of this encounter
--- OUTSIDE RECORDS SUMMARY | 2025-01-04 01:19 | XMS_ITS | Encounter Summary ---
Author Organization [facility] Address [address] [place] [address] Care Team Providers Care Senior Wind Energy Consultant Name Role Phone Phyllis Vega MD Primary Care Provider [phone] Reason for Visit * Reason Comments Follow-up MRI follow up. [facility]. Pt states less floaters, flashes and blue lights since last visit. No headaches. No eyepain. Floaters on going the same. Encounter Details Date Type Department Care Team (Late st Contact Info) Description 01/27/2012 10:00 EST Office Visit [facility] Ophthalmology - [address] [address] Daljit Dyer MD 111 [facility], [address] [place] [address] Social History Tobacco Use Types [...] - 01/28/2012 0811 EST DIVISION OF OPHTHALMOLOGY [facility] January 27, 2012 Jossy Camp and Kimberlee Atkins [facility] [place] [address] Dear Jossy: This is to refer a [...] Signed by Daljit Dyer MD 01/29/2012 18:29 Aj Romero MD - Daljit Dyer MD - Job ID: Doc ID: [id number] Ext Doc ID: [id number] cc: Jossy Atkins MD * Daljit Dyer MD - 01/27/2012 1230 EST . Base Ophthalmology Exam Visual Acuity Right Left Both Dist cc 20/20 20/20 Method: Snellen - Linear Comments: Pt forgot glasses, used phoropter, with glasses RX Wearing Rx Sphere Cylinder [place] Right +0.75 +3.00 095 Left -0.25 +0.25 100 Type: Reading Wearing Rx #2 Sphere Cylinder [place] Right +1.25 +2.50 91 Left -0.25 +0.25 96 Type: SVL IMP: There are no diagnoses linked to this encounter. PLAN: I am scribing for Daljit Dyer MD while he is personally performing the service. VALENTINO Boykin (Scribe) documented in this encounter Miscellaneous Notes * Scanned Note-Null - TALENT SOLUTIONS MANAGER, SCAN 2 - 01/30/2012 1124 EST documented [...] glasses RX Wearing Rx #1 Sphere Cylinder [place] Right eye +0.75 +3.00 095 Left eye -0.25 +0.25 100 Type: Reading Wearing Rx #2 Sphere Cylinder [place] Right eye +1.25 +2.50 91 Left eye -0.25 +0.25 96 Type: SVL Care Teams Senior Wind Energy Consultant Relationship Specialty Start Date End Date Phyllis Vega MD [address] [place] [phone] PCP - General 03/24/09 04/12/17 documented as of this encounter
--- OUTSIDE RECORDS SUMMARY | 2025-01-04 01:19 | XMS_ITS | Encounter Summary ---
Author Organization [facility] Address [address] [place] [address] Care Team Providers Care Rapid Extractor Operator Name Role Phone Phyllis Vega MD Primary Care Provider [phone] Encounter Details Date Type Department Care Team (Late st Contact Info) Description 04/12/2017 Orders Only Non [facility] Ancillary Services Christine Michelle, ENGINEERING PROFESSIONALS [address] [place] [address] Other specified related conditions, first [...] Preg 267(H) <5 mIU/ml 04/13/2017 11:33 EDT [facility] Comment: Reference Range: Negative = <5 Indeterminate = 5-25 recommend repeat in 48 hours. Positive = >25 Blood specimen (specimen) BLOOD SPECIMEN / Unknown 04/13/2017 9:36 EDT 04/13/2017 10:49 EDT us Christine Michelle ENGINEERING PROFESSIONALS CHEMISTRY & BLOOD GAS ORDER DALLIN Final Result [facility] [address] [place] [address] documented in this encounter Visit Diagnoses Diagnosis Other specified related conditions, first trimester- Primary documented in this encounter Orders Lab Orders Without Results Count Last Ordered D ate First Ordered Date HCG FOR 1 04/12/2017 documented in this encounter Care Teams Rapid Extractor Operator Relationship Specialty Start Date End Date Phyllis Vega MD [address] [place] [phone] PCP - General 03/24/09 04/12/17 documented as of this encounter
--- OUTSIDE RECORDS SUMMARY | 2025-01-04 01:19 | XMS_ITS | Encounter Summary ---
Author Organization [facility] Address [address] [place] [address] Care Team Providers Care Slurry Man Name Role Phone Phyllis Vega MD Primary Care Provider [phone] Encounter Details Date Type Department Care Team ([facility] Contact Info) Description 01/20/2012 20:51 EST - 01/20/2012 23:59 EST Hospital Encounter [facility] [address] [place] [address] Daljit Dyre MD 111 [facility], [address] [place] [address] Discharge Disposition: Home or Self [...] on filedocumented in this encounter Care Teams Slurry Man Relationship Specialty Start Date End Date Phyllis Vega MD [address] [place] [phone] PCP - General 03/24/09 04/12/17 documented as of this encounter
--- OUTSIDE RECORDS SUMMARY | 2025-01-04 01:19 | XMS_ITS | Encounter Summary ---
Author Organization [facility] Address [address] [place] [address] Care Team Providers Care Juke Box Servicer Name Role Phone Rita Quiroga MD Primary Care Provider Encounter Details Date Type Department Care Team (Late st Contact Info) Description 04/20/2017 10:33 EDT - 04/20/2017 23:59 EDT Hospital Encounter [address] [address] Jenifer Baker MD 111 [facility], [facility] [address] [place] [address] Discharge Disposition: Home or Self [...] on filedocumented in this encounter Care Teams Juke Box Servicer Relationship Specialty Start Date End Date Rita Quiroga MD [address] [place] [phone] PCP - General 04/13/17 documented as of this encounter
--- OUTSIDE RECORDS SUMMARY | 2025-01-04 01:19 | XMS_ITS | Encounter Summary ---
Author Organization [facility] Address [address] [place] [address] Care Team Providers Care Projects Manager Name Role Phone Rita Quiroga MD Primary Care Provider [phone] Encounter Details Date Type Department Care Team (Late st Contact Info) Description 04/16/2017 9:40 EDT Initial consult [facility] OBGYN Services - [address] [id number] Jenifer Baker MD [address] [place] [address], [address] [place] [address] Aracely Zuleta MD Tubal without [...] limitations and signs/symptoms to watch for. Provided TOOLMAN triage and on-call numbers, aware to call [...] 2016 documented in this encounter Care Teams Projects Manager Relationship Specialty Start Date End Date Rita Quiroga MD [address] [place] [phone] PCP - General 04/13/17 documented as of this encounter
--- OUTSIDE RECORDS SUMMARY | 2025-01-04 01:19 | XMS_ITS | Encounter Summary ---
Author Organization [facility] Address [address] [place] [address] Care Team Providers Care Radiation Control Specialist Name Role Phone Phyllis Vega MD Primary Care Provider [phone] Encounter Details Date Type Department Care Team (Late Contact Info) Description 12/30/2011 Phlebotomy Only [address] [address] Human Resources Officer, Outpatient Ocular migraine; Headache; Photopsia Social History [...] ORDER DALLIN Final Result Performing Organization Address [facility] Co de Phone Number [facility] [address] [place] [address] * BUN (12/30/2011 13:42 EST) BUN 13 10 - 26 mg/dl [facility] Blood specimen (specimen) 12/30/2011 13:42 EST 12/30/2011 14:26 EST Daljit Dyer MD CHEMISTRY & BLOOD GAS ORDER DALLIN Final Result Performing Organization Address [facility] de Phone Number [facility] [address] [place] [address] documented in this encounter Visit Diagnoses Diagnosis Ocular migraine Variants of migraine, not elsewhere classified, without mention of intractable migraine without mention of status migrainosus Headache(784.0) Headache Photopsia Other visual distortions and entoptic phenomena documented in this encounter Care Teams Radiation Control Specialist Relationship Specialty Start Date End Date Phyllis Vega MD [address] [place] [phone] PCP - General 03/24/09 04/12/17 documented as of this encounter
--- OUTSIDE RECORDS SUMMARY | 2025-01-04 01:19 | XMS_ITS | Encounter Summary ---
Author Organization [facility] Address [address] [place] [address] Care Team Providers Care Bundling Machine Operator Name Role Phone Rita Quiroga MD Primary Care Provider [phone] Encounter Details Date Type Department Care Team (Late st Contact Info) Description 04/16/2017 Phlebotomy Only [address] [address] Sample Sewer, Outpatient of unknown anatomic location (Primary Dx) [...] - 26 mg/dl 04/16/2017 9:38 EDT [facility] Blood specimen (specimen) BLOOD SPECIMEN / Unknown 04/16/2017 8:37 EDT 04/16/2017 8:53 EDT Jenifer Baker MD CHEMISTRY & BLOOD GAS OR DERABLES Final Result Performing Organization Address [facility] Co de Phone Number [facility] [address] [place] [address] * CREATININE (04/16/2017 8:37 EDT) Creatinine 0.61 0.52 - 1.04 mg/dl 04/16/2017 9:38 EDT [facility] GFR, Calculated 124 >60 ml/min/1.7 3m2 04/16/2017 9:38 EDT [facility] Comment: eGFR calculated using CKD-EPI equation for non Americans. Multiply eGFR by 1.16 for Americans. Blood specimen (specimen) BLOOD SPECIMEN / Unknown 04/16/2017 8:37 EDT 04/16/2017 8:53 EDT us Jenifer Baker MD CHEMISTRY & BLOOD GAS OR DERABLES Final Result Performing Organization Address City/[facility]/ZIP Co de Phone Number [facility] [address] [place] [address] * AST (04/16/2017 8:37 EDT) AST 18 15 - 46 U/L 04/16/2017 9:38 EDT [facility] Blood specimen (specimen) BLOOD SPECIMEN / Unknown 04/16/2017 8:37 EDT 04/16/2017 8:53 EDT us Jenifer Baker MD CHEMISTRY & BLOOD GAS OR DERABLES Final Result Performing Organization Address City/[facility]/ZIP Co de Phone Number [facility] [address] [place] [address] * ALT (04/16/2017 8:37 EDT) ALT 20 <53 U/L 04/16/2017 9:38 EDT [facility] Blood specimen (specimen) BLOOD SPECIMEN / Unknown 04/16/2017 8:37 EDT 04/16/2017 8:53 EDT us Jenifer Baker MD CHEMISTRY & BLOOD GAS OR DERABLES Final Result Performing Organization Address [facility] Co de Phone Number [facility] [address] [place] [address] * (ABNORMAL) HEMAGRAM (04/16/2017 8:37 EDT) WBC 7.89 4.0 - 12.4 K/cmm 04/16/2017 9:16 [facility] RBC 4.29 3.86 - 5.04 M/cmm 04/16/2017 9:16 [facility] Hemoglobin 11.8 11.6 - 15.2 gm/dl 04/16/2017 9:16 [facility] HCT 35.6 34.9 - 44.4 % 04/16/2017 9:16 [facility] MCV 83 81 - 98 fl 04/16/2017 9:16 [facility] MCH 27.5 26.7 - 33.3 pg 04/16/2017 9:16 [facility] MCHC 33.1 32.1 - 35.9 gm/dl 04/16/2017 9:16 [facility] RDW-CV 15.1(H) <14.7 % 04/16/2017 9:16 [facility] RDW-SD 46.3 <50.4 id 04/16/2017 9:16 EDT [facility] PLT 287 141 - 377 K/cmm 04/16/2017 9:16 EDT [facility] MPV 11.0 9.5 - 12.7 fl 04/16/2017 9:16 EDT [facility] Blood specimen (specimen) BLOOD SPECIMEN / Unknown 04/16/2017 8:37 EDT 04/16/2017 8:53 EDT us Jenifer Baker MD HEMATOLOGY & PF4 ORDERAB LES Final Result [facility] [address] [place] [address] * (ABNORMAL) HCG FOR (04/16/2017 8:37 EDT) Quant Beta HCG, Preg 317(H) <5 mIU/ml 04/16/2017 9:38 EDT [facility] Comment: Reference Range: Negative = <5 Indeterminate = 5-25 recommend repeat in 48 hours. Positive = >25 Blood specimen (specimen) BLOOD SPECIMEN / Unknown 04/16/2017 8:37 EDT 04/16/2017 8:53 EDT us Jenifer Baker MD CHEMISTRY & BLOOD GAS OR DERABLES Final Result [facility] [address] [place] [address] documented in this encounter Visit Diagnoses Diagnosis of unknown anatomic location- Primary state, incidental documented in this encounter Care Teams Bundling Machine Operator Relationship Specialty Start Date End Date Rita Quiroga MD [address] [place] [phone] PCP - General 04/13/17 documented as of this encounter
--- OUTSIDE RECORDS SUMMARY | 2025-01-04 01:19 | XMS_ITS | Encounter Summary ---
Author Organization [facility] Address [address] [place] [address] Care Team Providers Care Night Manager Name Role Phone Phyllis Vega MD Primary Care Provider [phone] Reason for Visit * Reason Onset Date Comments Eye Problem 10/16/2011 FLOATERS GETTING WORSE OVER THE PAST MONTH OR TWO LT>RT Appointment Related 10/16/2011 PT CALLED AN D WE SCHED HER FOR 10.30.11 PER EVELIO Encounter Details Date Type Department Care Team (Late Contact Info) Description 10/16/2011 Telephone [facility] Ophthalmology - [address] [address] Daljit Dyer MD [address] [facility], [address] [place] [address] Eye Problem (FLOATERS GETTING WORSE [...] * Telephone Encounter - Estrellita Dos Santos TomaszManish - 10/21/2011 1057 EST TRIED UNSUCESSFULY TO REACH PT SEVERAL TIMES LFT MSSG EACH TIME * Telephone Encounter - Shelia [...] it would take them to get to [place], if they were to be told to come. Pt lives in [place] and it would take her about 10mins to get to [facility]. Pt Will be going out of town from this Friday to next Friday. Phone #: [phone]: I gave this to Milly Linares To go over with EVELIO. documented in this encounter Plan of Treatment Not on file documented as of this encounter Visit Diagnoses Not on filedocumented in this encounter Care Teams Night Manager Relationship Specialty Start Date End Date Phyllis Vega MD [address] [place] [phone] PCP - General 03/24/09 04/12/17 documented as of this encounter
--- OUTSIDE RECORDS SUMMARY | 2025-01-04 01:19 | XMS_ITS | Encounter Summary ---
Author Organization [facility] Address [address] [place] [address] Care Team Providers Care Production Control Pegboard Clerk Name Role Phone Rita Quiroga MD Primary Care Provider [phone] Reason for Visit * Reason Onset Date Comments Appointment Related 05/08/2017 Encounter Details Date Type Department Care Team ([facility] Contact Info) Description 05/08/2017 Telephone [facility] OBGYN Services - [address] [address] Leni Delgado RN Appointment Related Social History [...] pm. Message left with Roxanne to call [employer] AUTOMATIC WINDOW REPAIRER back with her selection. documented in this encounter Plan of Treatment Not on file documented as of this encounter Visit Diagnoses Not on filedocumented in this encounter Care Teams Production Control Pegboard Clerk Relationship Specialty Start Date End Date Rita Quiroga MD [address] [place] [phone] PCP - General 04/13/17 documented as of this encounter
--- OUTSIDE RECORDS SUMMARY | 2025-01-04 01:19 | XMS_ITS | Encounter Summary ---
Author Organization [facility] Address [address] [place] [address] Care Team Providers Care Grain And Yeast Plants Supervisor Name Role Phone Rita Quiroga MD Primary Care Provider [phone] Encounter Details Date Type Department Care Team (Latest Contact Info) Description 04/15/2017 9:35 EDT - 04/15/2017 23:59 EDT Hospital Encounter [address] [address] Christine Michelle, COOLING TOWER TECHNICIAN [address] [place] [address] Discharge Disposition: Home or Self [...] on filedocumented in this encounter Care Teams Grain And Yeast Plants Supervisor Relationship Specialty Start Date End Date Rita Quiroga MD [address] [place] [phone] PCP - General 04/13/17 documented as of this encounter
--- OUTSIDE RECORDS SUMMARY | 2025-01-04 01:19 | XMS_ITS | Encounter Summary ---
Author Organization [facility] Address [address] [place] [address] Care Team Providers Care Entry Level Marketing Assistant Name Role Phone Rita Quiroga MD Primary Care Provider [phone] Reason for Visit * Reason Comments New Patient Visit FB[facility] Skin Lesion Nose Encounter Details Date Type Department Care Team (Late st Contact Info) Description 04/23/2017 15:40 EDT Office Visit [facility] Dermatology [address] [facility] [address] [place] [address] Symone Moore MD PhD [address] [place] [address] [place] [phone] Niall Garcia MD [address] [place] [phone] Spider angioma (Primary Dx) Social History [...] 15:41 * Niall Garcia MD - 04/23/2017 3440 EDT Dermatology Resident Clinic Visit Note Chief [...] the resident's/fellow's note. Symone Moore MD Dermatology documented in this encounter Plan of Treatment Not on file documented as of this encounter Visit Diagnoses Diagnosis Spider angioma- Primary Nevus, non-neoplastic documented in this encounter Care Teams Entry Level Marketing Assistant Relationship Specialty Start Date End Date Rita Quiroga MD [address] [place] [phone] PCP - General 04/13/17 documented as of this encounter
--- OUTSIDE RECORDS SUMMARY | 2025-01-04 01:19 | XMS_ITS | Encounter Summary ---
Author Organization [facility] Address [address] [place] [address] Care Team Providers Care Fish Processing Supervisor Name Role Phone Rita Quiroga MD Primary Care Provider [phone] Reason for Visit * Reason Onset Date Comments Pharmacy 04/16/2017 Encounter Details Date Type Department Care Team ([facility] Contact Info) Description 04/16/2017 Orders Only [facility] OBGYN Services - [address] [address] Leni Delgado, RN Social History Tobacco Use [...] on filedocumented in this encounter Care Teams Fish Processing Supervisor Relationship Specialty Start Date End Date Rita Quiroga MD [address] [place] [phone] PCP - General 04/13/17 documented as of this encounter
--- OUTSIDE RECORDS SUMMARY | 2025-01-04 01:19 | XMS_ITS | Encounter Summary ---
Author Organization [facility] Address [address] [place] [address] Care Team Providers Care Bail Agent Name Role Phone Rita Quiroga MD Primary Care Provider [phone] Reason for Visit * Reason Onset Date Comments Ectopic 04/24/2017 Encounter Details Date Type Department Care Team ([facility] Contact Info) Description 04/24/2017 Telephone [facility] OBGYN Services - [address] [address] Leni Delgado RN Ectopic Social History Tobacco [...] Encounter - Leni Delgado RN - 04/24/2017 6110 EDT Roxanne is wondering if it would [...] on filedocumented in this encounter Care Teams Bail Agent Relationship Specialty Start Date End Date Rita Quiroga MD [address] [place] [phone] PCP - General 04/13/17 documented as of this encounter
--- OUTSIDE RECORDS SUMMARY | 2025-01-04 01:19 | XMS_ITS | Encounter Summary ---
Author Organization [facility] Address [address] [place] [address] Care Team Providers Care Meat Carver Name Role Phone Rita Quiroga MD Primary Care Provider [phone] Reason for Referral * FOOT ROENTGENOLOGIST (Other (Specify in Question)) - Closed Specialty Diagnoses / Procedures Referred By Zafar jason Referred To Contact Diagnoses of unknown anatomic location Procedures MARINE ENGINE MACHINIST US OB FIRST TRIMESTER TRANSVAGINAL Jenifer Baker MD Phone: tel: fax: Referral ID Status Reason Start Date Expiration Date Visits Re quested Visits Authorized [id number] Closed 04/15/2017 1 1 Reason for Visit * Reason Onset Date Comments Ectopic 04/15/2017 Encounter Details Date Type Department Care Team ([facility] Contact Info) Description 04/15/[address] [facility] OBGYN Services - [address] [address] Leni Delgado RN of unknown anatomic location [...] morning followed by US and CON in MARINE ENGINE MACHINIST clinic. Added to MARINE ENGINE MACHINIST beta hcg monitoring list. Reported height is 62 and weight is 118 pounds. documented in this encounter Plan of Treatment Not on file documented as of this encounter Procedures Procedure Name Priority Date/Time Associated Diagnosis Comments MARINE ENGINE MACHINIST US OB FIRST TRIMESTER TRANSVAGINAL Routine 04/16/2017 9:23 EDT of unknown anatomic location documented in this encounter Results * MARINE ENGINE MACHINIST US OB FIRST TRIMESTER TRANSVAGINAL (04/16/2017 9:23 [...] ultrasound examination. View: Sufficient. Impression OB transvaginal [id number] Right adnexal mass adjacent to right ovary [...] ultrasound examination. View: Sufficient. Impression OB transvaginal [id number] Right adnexal mass adjacent to right ovary containing two CL's highly suspicious for tubal ectopic. Anteverted uterus with remnant Paragard IUD arm embedded into the right FRANKIE. No IUP identified. Left hemorrhagic cyst. The Paragard arm was removed under direct ultrasound visualization. Follow-up See [facility] notes for discussion of treatment plans for ectopic . us Jenifer Baker MD IMG US MARINE ENGINE MACHINIST ORDERABLES Fi nal Result * (ABNORMAL) BUN (04/16/2017 8:37 EDT) BUN 8(L) 10 - 26 mg/dl 04/16/2017 9:38 EDT [facility] Blood specimen (specimen) BLOOD SPECIMEN / Unknown 04/16/2017 8:37 EDT 04/16/2017 8:53 EDT us Jenifer Baker MD CHEMISTRY & BLOOD GAS OR DERABLES Final Result Performing Organization Address City/[facility] Co de Phone Number [facility] [address] [place] [address] * CREATININE (04/16/2017 8:37 EDT) Creatinine 0.61 [...] OR DERABLES Final Result Performing Organization Address [facility] Co de Phone Number [facility] [address] [place] [phone] * AST (04/16/2017 8:37 EDT) AST 18 15 - 46 U/L 04/16/2017 9:38 EDT [facility] Blood specimen (specimen) BLOOD SPECIMEN / Unknown 04/16/2017 8:37 EDT 04/16/2017 8:53 EDT us Jenifer Baker MD CHEMISTRY & BLOOD GAS OR DERABLES Final Result Performing Organization Address City/[facility]/ZIP Co de Phone Number [facility] [address] [place] [address] * ALT (04/16/2017 8:37 EDT) ALT 20 <53 U/L 04/16/2017 9:38 [facility] Blood specimen (specimen) BLOOD SPECIMEN / Unknown 04/16/2017 8:37 EDT 04/16/2017 8:53 EDT us Jenifer Baker MD CHEMISTRY & BLOOD GAS OR DERABLES Final Result [facility] [address] [place] [address] * (ABNORMAL) HEMAGRAM (04/16/2017 8:37 EDT) WBC 7.89 4.0 - 12.4 K/cmm 04/16/2017 9:16 [facility] RBC 4.29 3.86 - 5.04 M/cmm 04/16/2017 9:16 [facility] Hemoglobin 11.8 11.6 - 15.2 gm/dl 04/16/2017 9:16 [facility] HCT 35.6 34.9 - 44.4 % 04/16/2017 9:16 [facility] MCV 83 81 - 98 fl 04/16/2017 9:16 [facility] MCH 27.5 26.7 - 33.3 pg 04/16/2017 9:16 [facility] MCHC 33.1 32.1 - 35.9 gm/dl 04/16/2017 9:16 [facility] RDW-CV 15.1(H) <14.7 % 04/16/2017 9:16 [facility] RDW-SD 46.3 <50.4 fl 04/16/2017 9:16 [facility] PLT 287 141 - 377 K/cmm 04/16/2017 9:16 [facility] MPV 11.0 9.5 - 12.7 fl 04/16/2017 9:16 [facility] Blood specimen (specimen) BLOOD SPECIMEN / Unknown 04/16/2017 8:37 EDT 04/16/2017 8:53 EDT us Jenifer Baker MD HEMATOLOGY & PF4 ORDERAB LES Final Result Performing Organization Address City/[facility]/ZIP Co de Phone Number [facility] [address] [place] [address] * (ABNORMAL) HCG FOR (04/16/2017 8:37 EDT) [...] OR DERABLES Final Result Performing Organization Address City/[facility] Co de Phone Number [facility] [address] [place] [address] documented in this encounter Visit Diagnoses Diagnosis of unknown anatomic location- Primary state, incidental documented in this encounter Care Teams Meat Carver Relationship Specialty Start Date End Date Rita Quiroga MD [address] [place] [phone] PCP - General 04/13/17 documented as of this encounter
--- OUTSIDE RECORDS SUMMARY | 2025-01-04 01:19 | XMS_ITS | Encounter Summary ---
Author Organization [facility] Address [address] [place] [address] Care Team Providers Care Zigzag Appliquer Name Role Phone Phyllis Vega MD Primary Care Provider [phone] Encounter Details Date Type Department Care Team ([facility] Contact Info) Description 10/20/2013 12:56 EST - 10/20/2013 23:59 EST Hospital Encounter [facility] - Other [address] [place] [address] Nam Winslow MD [address] [facility], Level [address] [place] [address] Discharge Disposition: Home or Self [...] on filedocumented in this encounter Care Teams Zigzag Appliquer Relationship Specialty Start Date End Date Phyllis Vega MD [address] [place] [phone] PCP - General 03/24/09 04/12/17 documented as of this encounter
--- OUTSIDE RECORDS SUMMARY | 2025-01-04 01:19 | XMS_ITS | Encounter Summary ---
Author Organization [facility] Address [address] [place] [address] Care Team Providers Care Business Objects Analyst Name Role Phone Rita Quiroga MD Primary Care Provider [phone] Encounter Details Date Type Department Care Team (Late st Contact Info) Description 04/23/2017 11:08 EDT - 04/23/2017 23:[address] [facility] [address] [place] [address] Jenifer Baker MD [address] [facility] [address] [place] [address] Discharge Disposition: Auto Discharge Social [...] filedocumented in this encounter Care Teams Business Objects Analyst Relationship Specialty Start Date End Date Rita Quiroga MD [address] [place] [phone] PCP - General 04/13/17 documented as of this encounter
--- OUTSIDE RECORDS SUMMARY | 2025-01-04 01:19 | XMS_ITS | Encounter Summary ---
Author Organization [facility] Address [address] [place] [address] Care Team Providers Care Legal Counsel Name Role Phone Phyllis Vega MD Primary Care Provider [phone] Encounter Details Date Type Department Care Team (Latest Contact Info) Description 01/26/2014 8:21 EST - 01/26/2014 23:59 EST Hospital Encounter [facility] [address] [place] [address] Rita Quiroga MD [address] [place] [phone] Discharge Disposition: Auto Discharge Social History [...] Final Result [facility] [address] [place] [address] * LIPID PROFILE (INCLUDES CHOLESTEROL, TRIGLYCERIDES, HDL, LDL) (01/26/2014 8:40 EST) Cholesterol 183 mg/dl [facility] Comment: Icteric Icterus is not a quantitative measurement of bilirubin. Desirable:<200 Borderline High:200-239 High:>tm=758 Triglycerides 46 mg/dl [facility] Comment: Icteric Icterus is not a quantitative measurement of bilirubin. Normal:<150 Borderline High:150-199 High:200-499 Very High:>tf=650 HDL 59 mg/dl [facility] Comment: Icteric Icterus is not a quantitative measurement of bilirubin. Low:<40 Normal:40-60 Desirable: >60 LDL, Calculated 115 mg/dl [facility] Comment: Optimal:<100 Near Optimal:100-129 Borderline High:130-159 High:160-189 Very High:>ps=759 Chol/HDL Ratio 3.1 [facility] Fasting? YES [facility] Non HDL Cholesterol 124 mg/dl [facility] Comment: Icteric Icterus is not a quantitative measurement of bilirubin. Desirable:<130 Borderline:130-159 High: 160-189 Very High: >uv=101 01/26/2014 8:40 EST 01/26/2014 10:14 EST us Rita Quiroga MD CHEMISTRY & BLOOD GAS ORDERABLES Final Result [facility] [address] [place] [address] * BASIC METABOLIC PANEL (01/26/2014 8:40 EST) [...] GAS ORDERABLES Final Result Performing Organization Address City/State/[facility] Co de Phone Number [facility] [address] [place] [address] documented in this encounter Visit Diagnoses Not on filedocumented in this encounter Care Teams Legal Counsel Relationship Specialty Start Date End Date Phyllis Vega MD [address] [place] [phone] PCP - General 03/24/09 04/12/17 documented as of this encounter
--- OUTSIDE RECORDS SUMMARY | 2025-01-04 01:19 | XMS_ITS | Encounter Summary ---
Author Organization [facility] Address [address] [place] [address] Care Team Providers Care Socket Puller Name Role Phone Rita Quiroga MD Primary Care Provider [phone] Reason for Visit * Reason Comments Ectopic seen at [facility], told she might have an ectopic prgnancy. Here with abdominal pain Encounter Details Date Type Department Care Team (Late st Contact Info) Description 04/13/2017 22:03 EDT - 04/14/2017 0:35 EDT Emergency [facility] Emergency Department - Main [place] [address] [place] [address] Vic Lisa MD Emergency, MD Saman Less [...] Notes * Yaneth Floyd RN - 04/13/2017 6626 EDT Pt to U/S via stretcher with [...] by the patient and medical records. No computer language coder was used. Review of Systems Review of [...] 2.9 cm left ovarian cyst, read by vice president regulatory. There is a hyperechoic shadowing structure present [...] daily. added in this encounter Care Teams Socket Puller Relationship Specialty Start Date End Date Rita Quiroga MD [address] [place] [address] [phone] PCP - General 04/13/17 documented as of this encounter
--- OUTSIDE RECORDS SUMMARY | 2025-01-04 01:19 | XMS_ITS | Encounter Summary ---
Author Organization [facility] Address [address] [place] [address] Care Team Providers Care Teaching Dietitian Name Role Phone Rita Quiroga MD Primary Care Provider [phone] Encounter Details Date Type Department Care Team (Late Contact Info) Description 04/30/2017 Phlebotomy Only [address] [address] Electrician Substation, Outpatient Tubal without intrauterine (Primary Dx) Social [...] Preg <5 <5 mIU/ml 04/30/2017 14:14 EDT [facility] Comment: Reference Range: Negative = <5 Indeterminate = 5-25 recommend repeat in 48 hours. Positive = >25 Blood specimen (specimen) BLOOD SPECIMEN / Unknown 04/30/2017 12:41 EDT 04/30/2017 12:55 EDT us Jenifer Baker MD CHEMISTRY & BLOOD GAS OR DERABLES Final Result [facility] [address] [place] [address] documented in this encounter Visit Diagnoses Diagnosis Tubal without intrauterine - Primary documented in this encounter Care Teams Teaching Dietitian Relationship Specialty Start Date End Date Rita Quiroga MD [address] [place] [phone] PCP - General 04/13/17 documented as of this encounter
--- OUTSIDE RECORDS SUMMARY | 2025-01-04 01:20 | XMS_ITS | Encounter Summary ---
Author Organization [facility] Address [address] [place] [address] Care Team Providers Care Weight Tester Name Role Phone Phyllis Vega MD Primary Care Provider [phone] Encounter Details Date Type Department Care Team (Late st Contact Info) Description 07/10/2010 Abstract [facility] Mood & Anxiety - [address] [place] [place] [address] Phyllis Vega MD [address] [place] [phone] Social History Tobacco Use Types Packs/Day [...] on filedocumented in this encounter Care Teams Weight Tester Relationship Specialty Start Date End Date Phyllis Vega MD [address] [place] [phone] PCP - General 03/24/09 04/12/17 documented as of this encounter
--- OUTSIDE RECORDS SUMMARY | 2025-01-04 01:20 | XMS_ITS | Encounter Summary ---
Author Organization [facility] Address [address] [place] [address] Care Team Providers Care Public Services Assistant Name Role Phone Phyllis Vega MD Primary Care Provider [phone] Encounter Details Date Type Department Care Team ([facility] Contact Info) Description 04/10/2011 Abstract Used for ABSTRACTING Data [phone] Terry Sal MD [address] [facility] [address] [place] [address] Social History Tobacco Use Types [...] filedocumented in this encounter Care Teams Public Services Assistant Relationship Specialty Start Date End Date Phyllis Vega MD [address] [place] [phone] PCP - General 03/24/09 04/12/17 documented as of this encounter
--- OUTSIDE RECORDS SUMMARY | 2025-01-04 01:20 | XMS_ITS | Encounter Summary ---
Author Organization [facility] Address [address] [place] [address] Care Team Providers Care Weekday Babysitter Name Role Phone Phyllis Vega MD Primary Care Provider [phone] Encounter Details Date Type Department Care Team (Late st Contact Info) Description 09/13/2009 Abstract [facility] OBGYN Services - [address] [address] Phyllis Vega MD [address] [place] [phone] Insertion of Intrauterine Contraceptive Device Social [...] device documented in this encounter Care Teams Weekday Babysitter Relationship Specialty Start Date End Date Phyllis Vega MD [address] [place] [phone] PCP - General 03/24/09 04/12/17 documented as of this encounter
--- OUTSIDE RECORDS SUMMARY | 2025-01-04 01:20 | XMS_ITS | Encounter Summary ---
Author Organization [facility] Address [address] [place] [address] Care Team Providers Care Envelope Cutter Name Role Phone Phyllis Vega MD Primary Care Provider [phone] Encounter Details Date Type Department Care Team ([facility] Contact Info) Description 05/25/2009 15:00 EDT - 05/25/2009 23:59 EDT Hospital Encounter [facility] Mood & Anxiety - [place] [address] [place] [address] Hazel Glasgow MD [address] [place] [phone] Discharge Disposition: Home or Self Care [...] Result No Chlamydia trachomatis DNA detected by labor relations teacher mediated amplification. [facility] Result No Neisseria gonorrhoeae DNA detected by labor relations teacher mediated amplification. [facility] 07/27/2009 18:0 2 EDT 07/27/2009 18:02 EDT us Sixto Yip MD MSc MICROBIOLOGY - GENE RAL ORDERABLES Final Result [facility] [address] [place] [address] documented in this encounter Visit Diagnoses Not on filedocumented in this encounter Care Teams Envelope Cutter Relationship Specialty Start Date End Date Phyllis Vega MD [address] [place] [phone] PCP - General 03/24/09 04/12/17 documented as of this encounter
--- OUTSIDE RECORDS SUMMARY | 2025-01-04 01:20 | XMS_ITS | Encounter Summary ---
Author Organization [facility] Address [address] [place] [address] Care Team Providers Care Shipping Inspector Name Role Phone Phyllis Vega MD Primary Care Provider [phone] Encounter Details Date Type Department Care Team (Late st Contact Info) Description 11/16/2009 Abstract [facility] OBGYN Services - [address] [address] Phyllis Vega MD [address] [place] [phone] Other General Counseling and Advice for [...] management documented in this encounter Care Teams Shipping Inspector Relationship Specialty Start Date End Date Phyllis Vega MD [address] [place] [phone] PCP - General 03/24/09 04/12/17 documented as of this encounter
--- OUTSIDE RECORDS SUMMARY | 2025-01-04 01:20 | XMS_ITS | Encounter Summary ---
Author Organization [facility] Address [address] [place] [address] Care Team Providers Care Powder Line Repairer Name Role Phone Phyllis Vega MD Primary Care Provider [phone] Encounter Details Date Type Department Care Team ([facility] Contact Info) Description 09/21/2010 Results Only [facility] [phone] Aracely Palma MD [address] [place] [address] [phone] Social History Tobacco Use Types Packs/Day Years [...] ROXANNE PERES V ? Accession #: ? [id number] ? : ? 1990 (Age: 20) ??F [...] PATHOLOGY ORDERABLES Final Result [facility] [address] [place] [address] documented in this encounter Visit Diagnoses Not on filedocumented in this encounter Care Teams Powder Line Repairer Relationship Specialty Start Date End Date Phyllis Vega MD [address] [place] [phone] PCP - General 03/24/09 04/12/17 documented as of this encounter
--- OUTSIDE RECORDS SUMMARY | 2025-01-04 01:20 | XMS_ITS | Encounter Summary ---
Author Organization [facility] Address [address] [place] [address] Care Team Providers Care Repair Department Manager Name Role Phone Phyllis Vega MD Primary Care Provider [phone] Encounter Details Date Type Department Care Team (Late st Contact Info) Description 06/06/2010 Results Only [facility] [phone] Giulia Denton MD [address] [place] [address] Social History Tobacco Use Types Packs/Day Years [...] ROXANNE PERES V ? Accession #: ? [id number] ? : ? 1990 (Age: 20) ??F [...] ORDERABLES Final Resu lt Performing Organization Address City/State/[facility] Co de Phone Number [facility] [address] [place] [address] documented in this encounter Visit Diagnoses Not on filedocumented in this encounter Care Teams Repair Department Manager Relationship Specialty Start Date End Date Phyllis Vega MD [address] [place] [phone] PCP - General 03/24/09 04/12/17 documented as of this encounter
--- OUTSIDE RECORDS SUMMARY | 2025-01-04 01:20 | XMS_ITS | Encounter Summary ---
Author Organization [facility] Address [address] [place] [address] Care Team Providers Care Satellite Television Installer Name Role Phone Phyllis Vega MD Primary Care Provider [phone] Reason for Visit * Reason Comments Follow-up Hx of photopsias. Hx of migraines. Myopia. Still has blue spots in vision and squiggly floaters but no change. va stable. No pain. Encounter Details Date Type Department Care Team (Late st Contact Info) Description 04/12/2011 8:45 EDT Office Visit [facility] Ophthalmology - Main [address] [phone] Terry Sal MD [address] [place] [address], Level [address] [place] [address] Social History Tobacco Use Types [...] - 04/24/2011 1212 EDT DIVISION OF OPHTHALMOLOGY PRESS OPERATOR APPRENTICE CENTER PROGRESS/FOLLOWUP NOTE - 04/12/2011 Daljit Dyer MD [facility] - Ophthalmology [address] [place] [address] Dear Daljit: This is a letter of [...] Terry Sal MD [facility] [address] [place] [address], [place] [address] - Terry Sal MD - [facility] Job ID: SM Doc ID: [id number] [facility] Doc ID: [id number] cc: MD Manda Rosales OD * Terry [...] dilated exam . Pt likely moving from [facility] after graduation from college She knows [...] CR Scar 9 o'clock Normal Care Teams Satellite Television Installer Relationship Specialty Start Date End Date Phyllis Vega MD [address] [place] [phone] PCP - General 03/24/09 04/12/17 documented as of this encounter
--- OUTSIDE RECORDS SUMMARY | 2025-01-04 01:20 | XMS_ITS | Encounter Summary ---
Author Organization [facility] Address [address] [place] [address] Care Team Providers Care Genetic Scientist Name Role Phone Phyllis Vega MD Primary Care Provider [phone] Encounter Details Date Type Department Care Team ([facility] Contact Info) Description 2009 Office Visit [facility] [address] [place] [address] Student, T System [employer] Social History Tobacco Use Types Packs/Day Years Used Date Smoking Tobacco: Never Assessed Comments Unknown Sex and Gender Information Value Date Recorded Sex Assigned at Not on file Legal Sex Female 18:44 EST Gender Identity Not on file Sexual Orientation Not on file documented as of this encounter Progress Notes * Eliel, Conv Wood Boring Machine Operator - 03/10/2010 7848 EDT Care Center - Physician Summary Registration [...] Follow-up: ROXY LANE MD, Psych, , FA, [address] [place] [address]. Follow up in about one week. Call for an appointment. (Electronically signed by Laura Flores, 2009 15:27) Care Center - Nursing Summary Registration Date/Time: 2009 10:57 TRIAGE Initial Assessment O2 saturation: 100% room air. --1131 Randolphmika Flannery, R.N. (Pt in NAD. Able to speak in full sentances.). --1131 Randolph Alma Delia, R.N. BP: 130 / 60 sitting R arm manual. HR: 58 regular. RR: 16 regular (unlabored). Temp: 99 (temporal).--1141 Randolphmika Flannery, R.N.. Medications (nuvo-ring BCP). Prilosec: 10 mg daily. --1141 Randolphmika Flannery, R.N.. Allergies No known drug allergies. --1141 Luis Alberto Flannery R.N.. History Chief Complaint: SHORTNESS OF BREATH and (anxiety). This is a recurrent problem (3 weeks ago). Pain level now: 0/10. The patient has had a mild cough. (Feelslike she can't take a deep enough breath). Treatment DIRECTOR INDEPENDENT: None. PAST HX: Immunizations: up-to-date. Last normal [...] nurse per protocol and sent to lab: [facility]. --1440 Luis Alberto Flannery R.N.. DISPOSITION / DISCHARGE Condition at departure: unchanged. Patient reports pain level on departure as 0/10. No learning barriers present. Discharge instructions reviewed with the patient. Reviewed medication side effects, precautions, dosing and course; prescription (s) given to the patient. Patient verbalized understanding. Written instructions provided in Tristanian. The patient was discharged home. The patient left the Emergency Department ambulatory and via private vehicle. Patient driving. --1525 Luis Alberto Flannery R.N.. Locked/Released at 2009 15:25 by Luis Alberto Flannery R.N. documented in this encounter Plan of Treatment Not on file documented as of this encounter Visit Diagnoses Not on filedocumented in this encounter Care Teams Genetic Scientist Relationship Specialty Start Date End Date Phyllis Vega MD [address] [place] [phone] PCP - General 03/24/09 04/12/17 documented as of this encounter
--- OUTSIDE RECORDS SUMMARY | 2025-01-04 01:20 | XMS_ITS | Encounter Summary ---
Author Organization [facility] Address [address] [place] [address] Care Team Providers Care Supervisor Telephone Information Name Role Phone Unavailable Primary Care Provider Unavailabl e Encounter Details Date Type Department Care Team (Latest Contact Info) Description 10/10/2008 10:20 EST - 10/10/2008 11:59 EST Hospital Encounter [address] [address] Angela Eubanks MD [address] [place] [phone] Discharge Disposition: Auto Discharge Social History [...] Final Result [facility] [address] [place] [address] * ENDOMYSIAL ANTIBODY, SERUM (10/10/2008 12:13 EST) Endomysial Antibodies Negative Reference range: Negative Analyte Specific Reagent ? This test was developed and its performance characteristics ? determined by [facility]. This test has not been cleared or ? approved by the U.S. Food and Drug Administration. ? Performed or Referred by: [facility] Dpt of Lab Med and Path, [address] [place] [address], Lab Dir: Doroteo Viveros III, ? MD ? [facility] 10/10/2008 12:1 3 EST 10/10/2008 12:20 EST Angela Eubanks MD IMMUNOLOGY AND SEROLOGY TANNER MCKINNEY Final Result Performing Organization Address City/State/[facility] Co de Phone Number [facility] [address] [place] [address] * CERULOPLASMIN (10/10/2008 12:13 EST) Cerulplasmin 25.7Reference range: 14.0 to 47.8 Unit: mg/dL Please note change in methodology and reference ? values effective 08/23/2008. ? Performed or Referred by: [facility] Dpt of Lab Med and Path, [address] [place] [address], Lab Dir: Doroteo Viveros III, ? MD ? [facility] 10/10/2008 12:1 3 EST 10/10/2008 12:20 EST Angela Eubanks MD CHEMISTRY & BLOOD GAS ORDERA BLES Final Result Performing Organization Address [facility] Phone Number [facility] [address] [place] [address] * ANTI NUCLEAR ANTIBODY (10/10/2008 12:13 EST) Anti Nuclear Ab <40 0 - 40 Dils [facility] 10/10/2008 12:1 3 EST 10/10/2008 12:20 EST Angela Eubanks MD IMMUNOLOGY AND SEROLOGY ORDE RABLES Final Result Performing Organization Address [facility] Phone Number [facility] [address] [place] [address] * CK (10/10/2008 12:13 EST) CK 74 30 - 135 U/L [facility] 10/10/2008 12:1 3 EST 10/10/2008 12:20 EST Angela Eubanks MD CHEMISTRY & BLOOD GAS ORDERA BLES Final Result Performing Organization Address [facility] de Phone Number [facility] [address] [place] [address] * (ABNORMAL) LIVER FUNCTION TESTS (10/10/2008 12:13 [...] ORDERA BLES Final Result Performing Organization Address [facility] Phone Number [facility] [address] [place] [address] * LIPID PROFILE (10/10/2008 12:13 EST) Cholesterol 145 mg/dl [facility] Comment: Desirable:<200 Borderline High:200-239 High:>ln=027 Triglycerides 60 35 - 160 mg/dl [facility] HDL 40 mg/dl [facility] Comment: Low:<40 High(Desirable):>or=60 LDL, Calculated 93 mg/dl [facility] Comment: Optimal:<100 Above optimal:100-129 Borderline High:130-159 High:160-189 Very High:>aj=456 Chol/HDL Ratio 3.6 [facility] Fasting? Yes [facility] 10/10/2008 12:1 3 EST 10/10/2008 12:20 EST Angela Eubanks MD CHEMISTRY & BLOOD GAS ORDERA BLES Final Result Performing Organization Address [facility] de Phone Number [facility] [address] [place] [address] * RAD US ABDOMEN ONE ORGAN/QUADRANT (10/10/2008 [...]
--- OUTSIDE RECORDS SUMMARY | 2025-01-04 01:20 | XMS_ITS | Encounter Summary ---
Author Organization [facility] Address [address] [place] [address] Care Team Providers Care Profiler Operator Name Role Phone Phyllis Vega MD Primary Care Provider [phone] Encounter Details Date Type Department Care Team (Late st Contact Info) Description 01/25/2010 Abstract [facility] OBGYN Services [address] [address] Phyllis Vega MD [address] [place] [phone] Social History Tobacco Use Types Packs/Day [...] on filedocumented in this encounter Care Teams Profiler Operator Relationship Specialty Start Date End Date Phyllis Vega MD [address] [place] [phone] PCP - General 03/24/09 04/12/17 documented as of this encounter
--- OUTSIDE RECORDS SUMMARY | 2025-01-04 01:20 | XMS_ITS | Encounter Summary ---
Author Organization [facility] Address [address] [place] [address] Care Team Providers Care Property Accountant Name Role Phone Phyllis Vega MD Primary Care Provider [phone] Encounter Details Date Type Department Care Team (Latest Contact Info) Description 05/08/2009 9:30 EDT - 05/08/2009 23:59 EDT Hospital Encounter [facility] Mood & Anxiety - [address] [place] [address] [place] [address] Desirae Estrada, [facility] [address] [place] [address] Discharge Disposition: Home or Self [...] Code Departure Means Destination Home or Self [facility]ci documented in this encounter Plan of Treatment Not on file documented as of this encounter Visit Diagnoses Not on filedocumented in this encounter Care Teams Property Accountant Relationship Specialty Start Date End Date Phyllis Vega MD [address] [place] [phone] PCP - General 03/24/09 04/12/17 documented as of this encounter
--- OUTSIDE RECORDS SUMMARY | 2025-01-04 01:20 | XMS_ITS | Encounter Summary ---
Author Organization [facility] Address [address] [place] [address] Care Team Providers Care Corsets Salesperson Name Role Phone Phyllis Vega MD Primary Care Provider [phone] Encounter Details Date Type Department Care Team (Late Contact Info) Description 07/27/2010 12:48 EDT - 07/27/2010 23:59 EDT Hospital Encounter [facility] [address] [place] [address] Boo Jim MD [address] [facility], Level [address] [place] [address] Mauri Ware MD [address] [place] [address] [address] [place] [phone] Discharge Disposition: Home or Self [...] or Self Halfway documented in this encounter Procedure Notes * [...] ORDERABLES Varsha l Result Performing Organization Address [facility]/ZIP Co de Phone Number POINT OF CARE * PATHOLOGY - SCANNED (07/30/2010 8:38 EDT) 07/30/2010 8:38 EDT Narrative Procedure Note Inpatient, Physician - 07/27/2010 0:00 EDT Physician Inpatient MD LAB INFO SERVICE AND SUPP ORT & PHONE RESULT Final Result Performing Organization Address [facility]/ZIP Co de Phone Number POINT OF CARE documented in this encounter Visit Diagnoses Not on filedocumented in this encounter Care Teams Corsets Salesperson Relationship Specialty Start Date End Date Phyllis Vega MD [address] [place] [phone] PCP - General 03/24/09 04/12/17 documented as of this encounter
--- OUTSIDE RECORDS SUMMARY | 2025-01-04 01:20 | XMS_ITS | Encounter Summary ---
Author Organization [facility] Address [address] [place] [address] Care Team Providers Care Silverware Washer Name Role Phone Phyllis Vega MD Primary Care Provider [phone] Encounter Details Date Type Department Care Team (Latest Contact Info) Description 2009 15:04 EDT - 2009 15:05 EDT Hospital Encounter [facility] - Other [address] [place] [address] Laura Bravo PA-C [address] [place] [phone] Discharge Disposition: Home or Self Care Social [...] on filedocumented in this encounter Care Teams Silverware Washer Relationship Specialty Start Date End Date Phyllis Vega MD [address] [place] [phone] PCP - General 03/24/09 04/12/17 documented as of this encounter
--- OUTSIDE RECORDS SUMMARY | 2025-01-04 01:20 | XMS_ITS | Encounter Summary ---
Author Organization [facility] Address [address] [place] [address] Care Team Providers Care Silica Mixer Operator Name Role Phone Phyllis Vega MD Primary Care Provider [phone] Encounter Details Date Type Department Care Team (Latest Contact Info) Description 2009 10:56 EDT - 2009 15:26 EDT Hospital Encounter [facility] - [address] [address] Unknown, Provider, Discharge Disposition: Home or Self [...] Final Result [facility] [address] [place] [address] * CHEST PA AND LATERAL (2009 13:31 [...] on filedocumented in this encounter Care Teams Silica Mixer Operator Relationship Specialty Start Date End Date Phyllis Vega MD [address] [place] [phone] PCP - General 03/24/09 04/12/17 documented as of this encounter
--- OUTSIDE RECORDS SUMMARY | 2025-01-04 01:20 | XMS_ITS | Encounter Summary ---
Author Organization [facility] Address [address] [place] [address] Care Team Providers Care Street Department Dispatcher Name Role Phone Unavailable Primary Care Provider Unavailabl e Encounter Details Date Type Department Care Team ([facility] st Contact Info) Description 12/14/2008 9:45 EST Hospital Encounter [facility] [address] [place] [address] Unknown, Provider, Social History Tobacco Use Types [...]
--- OUTSIDE RECORDS SUMMARY | 2025-01-04 01:20 | XMS_ITS | Encounter Summary ---
Author Organization [facility] Address [address] [place] [address] Care Team Providers Care Deputy Controller Name Role Phone Phyllis Vega MD Primary Care Provider [phone] Encounter Details Date Type Department Care Team (Late Contact Info) Description 07/27/2010 Results Only [facility] Gastroenterology - [facility] [address] [place] [address] [facility] [address] [place] [address] [address] [place] [address] Social History Tobacco Use Types [...] JA, ROXANNE V ? Accession #: ? [id number] ? : ? 1990 (Age: 20) ??F [...] Anemia ? Gross Description: ? [facility] [place], Roxanne and biopsies ?? of duodenum are two pink-jameson, irregular soft tissues, each 0.3 x 0.2 x 0.2 cm, submitted in toto in a single cassette. (Liliana Suarez)/mpl ? End of Report ? [facility] 07/27/2010 07/28/2010 9:3 9 EDT us Venkatesh Ware MD PATHOLOGY ORDERABLES Fi nal Result Performing Organization Address City/State/[facility] Co de Phone Number [facility] [address] [place] [address] documented in this encounter Visit Diagnoses Not on filedocumented in this encounter Care Teams Deputy Controller Relationship Specialty Start Date End Date Phyllis Vega MD [address] [place] [place] [phone] PCP - General 03/24/09 04/12/17 documented as of this encounter
--- OUTSIDE RECORDS SUMMARY | 2025-01-04 01:20 | XMS_ITS | Encounter Summary ---
Author Organization [facility] Address [address] [place] [address] Care Team Providers Care Teenage Babysitter Name Role Phone Phyllis Vega MD Primary Care Provider [phone] Encounter Details Date Type Department Care Team ([facility] Contact Info) Description 06/11/2010 12:51 EDT - 06/11/2010 23:59 EDT Hospital Encounter [facility] [address] [place] [address] JeanieMauri katz MD [address] [place] [address] [address] [place] [address] Discharge Disposition: Home or Self [...] Final Result [facility] [address] [place] [address] * TISSUE TRANSGLUTAMINASE ANTIBODY (06/11/2010 13:10 EDT) Tissue Transglutaminase Ab 1.28 <15.01 U/ml [facility] Blood specimen (specimen) 06/11/2010 13:10 EDT 06/11/2010 13:12 EDT Mauri Ware MD IMMUNOLOGY AND SEROLOGY ORDERABLES Final Result Performing Organization Address [facility] Co de Phone Number [facility] [address] [place] [address] * LIVER FUNCTION TESTS (06/11/2010 13:10 EDT) [facility] Albumin 4.9 3.4 - 4.9 g/dl [facility] Total Protein 7.5 6.5 - 8.3 g/dl [facility] Total Alkaline Phosphatase 80 38 - 126 U/L [facility] ALT 23 9 - 52 U/L [facility] AST 27 15 - 46 U/L [facility] Unconjugated Bilirubin 0.6 0.1 - 1.1 mg/dl [facility] Conjugated Bilirubin 0.0 0.0 - 0.3 mg/dl [facility] Bilirubin, Total 0.5 0.2 - 1.3 mg/dl [facility] Blood specimen (specimen) 06/11/2010 13:10 EDT 06/11/2010 13:12 EDT us Mauri Ware MD CHEMISTRY & BLOOD GAS O RDERABLES Final Result Performing Organization Address [facility] Co de Phone Number [facility] [address] [place] [address] * (ABNORMAL) FERRITIN (06/11/2010 13:10 EDT) [facility] Ferritin 5(L) 10 - 291 ng/mL [facility] Blood specimen (specimen) 06/11/2010 13:10 EDT 06/11/2010 13:12 EDT us Mauri Ware MD CHEMISTRY & BLOOD GAS O RDERABLES Final Result Performing Organization Address City/[facility] Co de Phone Number [facility] [address] [place] [address] * (ABNORMAL) IBC (06/11/2010 13:10 EDT) [facility] TIBC 554(H) 265 - 497 ug/dl [facility] Blood specimen (specimen) 06/11/2010 13:10 EDT 06/11/2010 13:12 EDT us Mauri Ware MD CHEMISTRY & BLOOD GAS O RDERABLES Final Result Performing Organization Address [facility] de Phone Number [facility] [address] [place] [address] * IRON (06/11/2010 13:10 EDT) Iron 62 60 - 180 ug/dl [facility] Blood specimen (specimen) 06/11/2010 13:10 EDT 06/11/2010 13:12 EDT us Mauri Ware MD CHEMISTRY & BLOOD GAS O RDERABLES Final Result Performing Organization Address [facility] Phone Number [facility] [address] [place] [address] * (ABNORMAL) HEMAGRAM (06/11/2010 13:10 EDT) WBC 6.59 4.0 - 12.4 K/cmm [facility] RBC 3.93 3.86 - 5.04 M/cmm [facility] Hemoglobin 10.5(L) 11.6 - 15.2 gm/dl [facility] HCT 31.2(L) 34.9 - 44.4 % [facility] MCV 79(L) 81 - 98 [...] ORDERA BLES Final Result Performing Organization Address [facility]/State/ZIP Co de Phone Number [facility] [address] [place] [address] documented in this encounter Visit Diagnoses Not on filedocumented in this encounter Care Teams Teenage Babysitter Relationship Specialty Start Date End Date Phyllis Vega MD [address] [place] [phone] PCP - General 03/24/09 04/12/17 documented as of this encounter
--- OUTSIDE RECORDS SUMMARY | 2025-01-04 01:20 | XMS_ITS | Encounter Summary ---
Author Organization [facility] Address [address] [place] [address] Care Team Providers Care Lighter Captain Name Role Phone Phyllis Vega MD Primary Care Provider [phone] Encounter Details Date Type Department Care Team ([facility] Contact Info) Description 06/07/2011 Abstract Used for ABSTRACTING Data [phone] Daljit Dyer MD [address] [facility], [facility] [address] [place] [address] Social History Tobacco Use Types [...] on filedocumented in this encounter Care Teams Lighter Captain Relationship Specialty Start Date End Date Phyllis Vega MD [address] [place] [phone] PCP - General 03/24/09 04/12/17 documented as of this encounter
--- OUTSIDE RECORDS SUMMARY | 2025-01-04 01:20 | XMS_ITS | Encounter Summary ---
Author Organization [facility] Address [address] [place] [address] Care Team Providers Care Cascade Operator Name Role Phone Phyllis Vega MD Primary Care Provider [phone] Reason for Visit * Reason Comments Emesis pt throwing up and d iarrhea x 2 hours Encounter Details Date Type Department Care Team (Late st Contact Info) Description 02/16/2010 1:08 EDT - 02/16/2010 3:13 EDT Emergency [facility] Emergency Department - Main [place] [address] [place] [id number] Isidoro Faria MD [facility] [place] [address] Emergency, Default, Viral gastroenteritis Discharge [...] the original note were not included. [facility] Patient Instructions Gastroenteritis: After Your [...] Where can you learn more? Go to www.[employer].net/fahc Enter N142 in the search box to learn more about Gastroenteritis: After Your Visit. ?? 2005 - 2008 [employer]. Care instructions adapted under license by [facility], [facility] . This care instruction is for use with your licensed healthcare professional. If you have questions about a medical condition or this instruction, always ask your healthcare professional. [employer] disclaims any warranty or liability for your [...] Given IV fluids and Zofran for nausea. Pollard better and discharged home. Discharge Prescriptions New Prescriptions ONDANSETRON (ZOFRAN) 4 MG TABLET Take 1 Tab by mouth every 8 hours as needed for Nausea. [facility] Encounter Diagnoses Code Name Primary? Qualifier ??? [...] 02/16/2010 documented in this encounter Care Teams Cascade Operator Relationship Specialty Start Date End Date Phyllis Vega MD [address] [place] [phone] PCP - General 03/24/09 04/12/17 documented as of this encounter
--- OUTSIDE RECORDS SUMMARY | 2025-01-04 01:20 | XMS_ITS | Encounter Summary ---
Author Organization [facility] Address [address] [place] [address] Care Team Providers Care Net Software Engineer Name Role Phone Phyllis Vega MD Primary Care Provider [phone] Encounter Details Date Type Department Care Team ([facility] Contact Info) Description 09/21/2010 18:09 EDT - 09/21/2010 18:10 EDT Hospital Encounter [facility] - Other [address] [place] [address] Aracely Palma MD [address] [place] [phone] Discharge Disposition: Home or Self Care [...] on filedocumented in this encounter Care Teams Net Software Engineer Relationship Specialty Start Date End Date Phyllis Vega MD [address] [place] [phone] PCP - General 03/24/09 04/12/17 documented as of this encounter
[2025-01-04 17:38] LABS: TSH (W/Ref FT4) 2.43 uIU/mL (0.36-3.74)
== END 2025-01-04 01:07 | disposition home or self-care (01) ==
LOC: LBO 01:06
PROVIDERS: PCP Family Medicine; Visit Provider Advanced Practice Midwife
DX: E03.9 Hypothyroidism, unspecified (principal)
CPT/HCPCS: 36415; 84443

== ENCOUNTER 2025-02-02 03:30 | Outpatient (CLI) | payer BC, SELFPAY ==
[2025-02-02 11:11] LABS: HCT 38.3 % (36.0-46.0); HGB 12.5 g/dL (11.2-15.7); MCH 29.3 pg (27.0-33.0); MCHC 32.6 % (32.0-36.0); MCV 90 fL (80-95); MPV 10.1 fL (8.0-11.0); Platelet Count 257 10^3/uL (130-400); RBC 4.26 10^6/uL (3.93-5.22); RDW 12.9 % (11.7-14.6); RDW-SD 42.2 fL; WBC 13.12 10^3/uL (4.4-10.8)
[2025-02-02 11:27] LABS: Glucose,1 Hr (Glucola) 90 mg/dL (80-140)
== END 2025-02-02 03:31 | disposition home or self-care (01) ==
LOC: LBO 03:30
PROVIDERS: Advanced Practice Midwife; PCP Family Medicine; Visit Provider Advanced Practice Midwife
DX: Z34.92 Encounter for supervision of normal pregnancy, unspecified, second trimester (principal); O26.892 Other specified pregnancy related conditions, second trimester; Z67.91 Unspecified blood type, Rh negative
CPT/HCPCS: 36415; 82950; 85027; 86850; 86900; 86901; 90384

== ENCOUNTER 2025-03-03 15:53 | Outpatient (REF) | payer BC, SELFPAY | END 2025-03-03 15:54 | disposition home or self-care (01) | LOC: LBN 15:53 | PROVIDERS: PCP Family Medicine; Visit Provider Advanced Practice Midwife | DX: O26.893 Other specified pregnancy related conditions, third trimester (principal); R10.9 Unspecified abdominal pain | CPT/HCPCS: 87086 ==

== ENCOUNTER 2025-03-17 01:01 | Outpatient (CLI) | payer BC, SELFPAY ==
[2025-03-17 16:12] LABS: HCT 38.5 % (36.0-46.0); HGB 12.7 g/dL (11.2-15.7); MCH 28.9 pg (27.0-33.0); MCV 88 fL (80-95); MPV 10.5 fL (8.0-11.0); Platelet Count 252 10^3/uL (130-400); RDW 13.9 % (11.7-14.6); RDW-SD 44.3 fL
[2025-03-17 17:26] LABS: TSH (W/Ref FT4) 1.28 uIU/mL (0.36-3.74)
== END 2025-03-17 01:02 | disposition home or self-care (01) ==
PROVIDERS: PCP Family Medicine; Visit Provider Advanced Practice Midwife
DX: E03.9 Hypothyroidism, unspecified (principal); Z34.93 Encounter for supervision of normal pregnancy, unspecified, third trimester
CPT/HCPCS: 36415; 85027; 84443

== ENCOUNTER 2025-03-31 22:12 | Outpatient (REF) | payer BC, SELFPAY | END 2025-03-31 22:13 | disposition home or self-care (01) | LOC: LBN 22:12 | PROVIDERS: PCP Family Medicine; Visit Provider Advanced Practice Midwife | DX: O09.513 Supervision of elderly primigravida, third trimester (principal) | CPT/HCPCS: 87081 ==

== ENCOUNTER 2025-04-16 09:32 | Outpatient (CLI) | payer BC, SELFPAY ==
[2025-04-16 11:05] VITALS: BP 121/61; PULSE 82
[2025-04-16 11:42] VITALS: BP 121/61; PULSE 82
[2025-04-16 14:51] VITALS: BP 121/61; PULSE 82
--- NOTE | 2025-04-16 14:51 | W.OBNST ---
Date of service: 04/16/25 Time of Service: 14:51 NST Evaluation Reason for NST Reasons for Nonstress Test: DECREASED MOVEMENT Gestational Age Gestational Age in Weeks and Days: 38 Weeks and 5Days Test and Monitor Explained Test/Monitor Explained: Test Explained, Monitor Explained and Patient Verbalized Understanding Vital Signs Blood Pressure: 121/61 Pulse: 82 Urine Results Urine Protein: Positive Urine Ketones: Negative Urine Glucose: Negative Urine Blood: Negative NST Information Date on Monitor: 04/16/25 Time on Monitor: 11:12 Date off Monitor: 04/16/25 Time off Monitor: 11:40 Total Time on Monitor: 28 NST Interventions: PO Hydration NST Evaluation Patient States Movement: Present FHR Baseline: 135 Variability: Moderate 6-25 bpm Accelerations: 15x15 Decelerations: None NST Results: Reactive Note Ultrasound Done: N/A. NST Note NST Reviewed and Verified by: Porsha Dash
== END 2025-04-16 11:42 | disposition home or self-care (01) ==
LOC: BCD 09:38 → OBS 11:22
PROVIDERS: PCP Family Medicine; Visit Provider Advanced Practice Midwife
DX: O36.8131 Decreased fetal movements, third trimester, fetus 1 (principal); Z3A.38 38 weeks gestation of pregnancy
CPT/HCPCS: 59025

== ENCOUNTER 2025-04-27 22:51 | Inpatient (IN) | payer BC, SELFPAY ==
[2025-04-27] VITALS (13 sets, daily range): BP systolic 138–175; BP diastolic 77–98; PULSE 80–110; RESP 17; O2SAT 98–100; BMI 29.9
--- NOTE | 2025-04-27 22:49 | HPE_ITS ---
Date of service: 04/27/25 Time of Service: 22:49 Assessment and Plan Assessment and plan (1) Normal labor: Status: Acute Assessment and plan: A: 35 yo G1 @ 40+2 wks, spontaneous onset labor Category 1 tracing, GBS negative, intact membranes Rh negative, received RhoGam at 28 wks, low risk for SD and PPH Hx hypothyroidism, levothyroxine dose @ 75 mcg Hx depression treated with Lexapro P: Admit to L&D, CBC, T&S Pt requested nitrous and use of the tub but found them ineffective Has decided for epidural anesthesia IV initiated, supervisor refining requested to page NATURAL RESOURCE SPECIALIST Anticipate (2) Rh negative state in antepartum period: Status: Acute (3) Hypothyroidism: Status: Chronic OB-HPI Labor/Delivery History of Present Illness Reason for Visit: Term Labor Chief Complaint: Uterine Contractions (contractions through out the day, became more regular at 2100, blood tinged vaginal mucous, no ROM, mild nausea). NAVJOT Calculator Estimated Delivery Date Method Current WG Current Estimate 04/25/25 Ultrasound #1 40w 2d Other Estimates 05/02/25 LMP (Certain) 39w 2d History of Present Expected Delivery Route/Plan - CNM FOB/ - Aidan Caceres (first child) BG Would like to use tub, shower, nitrous, etc Grpve-dn-hibtssme- Janelle Youssef GBS negative Specific Issues/Plan 1. AMA, cfDNA low risk female, CF/SMA neg, accepts level 2 u/s & MFM consult 11/29/24 2. Low dose ASA recommended for AMA and nulliparity 3. Hypothyroidism, levothyroxine 50 mcg qd; initial TSH 4.59, will discontinue Tums and repeat in 1 month 3a. On 11/09 (16 wks) TSH 4.8, increase levothyroxine to 75 mcg and recheck in 6 weeks- TSH 2.43 3b. TSH @ 34 wks=1.28 4. Anxiety and depression, takes Wellbutrin, Lexapro, in therapy 5. PHQ9 score=9, declines S referral, 5P screen negative 6. RH neg- discuss with Edmundo Oliveiraam at 28 weeks, given 02/02/25 7. Acid reflux, taking omeprazole and TUMS 8. Uses triamcinolone periodically for mild vaginal itching Assessment: History Reviewed & Current Review of Systems Narrative: ROS noncontributory other than HPI PFSH All Active Problems (Updated 04/27/25 @ 23:02 by Porsha Dash) Normal labor (Acute) Rh negative state in antepartum period (Acute) Advanced maternal age, 1st (Acute) Anxiety and depression (Chronic) Irritable bowel syndrome affecting (Acute) avoids milk but consumes other dairy (Acute) Hypothyroidism (Chronic) Start synthroid May 2024 Environmental allergies (Acute) TMJ dysfunction (Acute) Allergic rhinitis due to allergen (Acute) Chronic rhinitis (Acute) Otalgia of both ears (Acute) Tinnitus, bilateral (Acute) Abnormal auditory perception (Acute) Medical History (Updated 04/27/25 @ 23:02 by Porsha Dash) Post-nasal drip Jaw pain Abdominal cramping affecting Palpitations Positive test Left lower quadrant pain Chronic vulvitis Doing well summer 2023 History of chronic cough Social History Smoking/Tobacco Use Status: Never Smoking risk assessment performed?: Yes Alcohol Intake: current Drug use: Occasionally Substance use type: marijuana Housing: house Do you feel safe at home: Yes Do you feel safe in your relationship?: Yes History History 2 Para 0 Hx # Term Pregnancies 0 Multiple births 0 Hx # Pregnancies 0 Ectopic pregnancies 1 AB induced 0 Hx Number of Living Children 0 AB spontaneous 0 Past Pregnancies Del. Date GA/Weeks # Preg Succ Route Wgt Sex Labor Lgth Anesth esia Location Prov Complic 03/31/17 5 No Delivery Date: 03/31/17 Last Updated by: Porsha Dash methyltrexate for ectopic Meds Allergies and Home Medications Allergies Allergy/AdvReac Type Severity Reaction Status Date / Time ENVIROMENTAL Allergy Mild Other (See Uncoded 04/22/25 15:09 Comment) Home Medications ?Medication ?Instructions ?Recorded ?Confirmed ?Type Womens Mv & Mineral 1 tab PO DAILY 10/11/14 04/27/25 Clinic montelukast 10 mg tablet 10 mg PO DAILY 12/20/21 04/27/25 History escitalopram oxalate 10 mg tablet 10 mg PO DAILY 12/03/22 04/27/25 History loratadine 10 mg tablet (Claritin) 10 mg PO DAILY 02/11/23 04/27/25 History metoprolol tartrate 25 mg tablet 25 mg PO DAILY PRN 08/16/24 04/27/25 History aspirin 81 mg tablet,delayed 81 mg PO DAILY #90 tabs 11/29/24 04/27/25 Rx release levothyroxine 75 mcg tablet 75 mcg PO DAILY #30 tabs 11/29/24 04/27/25 Rx ondansetron HCl 4 mg tablet 4 mg PO Q6H PRN nausea and 01/10/25 04/27/25 Rx vomiting #30 tabs pantoprazole 40 mg tablet,delayed 40 mg PO DAILY #30 tabs 03/08/25 04/27/25 Rx release Exam Physical Exam Vital signs: Pulse Resp BP 80 17 147/84 H 04/27/25 22:32 04/27/25 22:32 04/27/25 22:32 Vital Signs Reviewed: Yes Constitutional Constitutional: moderate distress, average body habitus and cooperative Detailed Labor and Delivery Exam Dilation: 6 Effacement (%): 100 station: -2 Cervix position: posterior Consistency: soft Amniotic Membrane Status: Intact Contraction Frequency(min): q2-3 Contraction Intensity: Moderate Fetus A Heart Rate Baseline: 115 Monitor Accelerations: 15 X 15 Monitor Decelerations: None Variability: Moderate (6-25 BPM) Categories: Category I Est. Weight: 7 lb 0.877 oz Est. Weight: 3200 gms HEENT Exam HEENT Exam: Normal Neck Exam Neck Exam: Normal Chest/Brest/Axilla Exam Chest Exam: Normal Breast Exam Breast Exam: Not Done Respiratory Exam Respiratory Exam: Normal Cardiovascular Exam Cardiovascular Exam: Normal Abdominal Exam Abdominal Exam: Normal (gravid, nontender) Rectal Exam Rectal Exam: Normal Exam Exam: Normal Extremities Exam Extremities Exam: Normal Back/Spine/Pelvis Exam Back Exam: Normal Pelvis Adequate: Yes Skin Exam Skin Exam: Normal Neurological Exam Neurological Exam: Normal Psychiatric Exam Psychiatric Exam: Normal Results Results Group Beta Strep: Negative Blood Type: O- Rubella Status: Immune Varicella Immunity: Immune Risk Assessment Risk for Shoulder Dystocia Historical/Initial OB: NEGATIVE FOR: Pelvic Abnormality, Pre- BMI>30, Previous Shoulder Dystocia or Previous Macrosomia 36 Weeks: NEGATIVE FOR: Current Gestational DM, EFW>4500gms or Maternal Weight Gain>40lbs 40 Weeks: NEGATIVE FOR: EFW> 4500 gms, Maternal Weight Gain >40lb or Post Dates Delivery Plan @ 36wks: Delivery Plan @ 40 wks: Risk for Pre-Eclampsia Date Initiated/Initials: to start at 12 wks. JK Yes, if one or more: NEGATIVE FOR: Hx Pre-E/Gest HTN, Chronic HTN, Multiple Gestation, Pre-gestational DM, Renal Disease, Systemic Lupus or APA Syndrome Yes, if 2 or more: POSITIVE FOR: Nulliparity and Age>= 35 yrs; NEGATIVE FOR: >10yr btwn pregnancies, BMI>30, ethinicty, Mother/Sister w/ Pre-E or Previous IUGR Risk for Post- Hemorrhage Initial: NEGATIVE FOR: Multiple Gestation, Previous PPH, Known Clotting Deficiency, Grand Multiparity or Anticoagulation 36 Weeks: NEGATIVE FOR: Anemia, hgb<10, Low platelets(thrombocytopenia), Gestational HTN or Pre-E, Polyhydraminios or EFW>4500gms 40 Weeks: NEGATIVE FOR: Anemia, hgb<10, Low platelets (thrombocytopenia), Gestation HTN or Pre-E, Polyhydraminios or EFW>4500gms At Risk?: No Counseled re: Active Management: Yes Risks Reviewed Risks Reviewed Upon Admission: Yes
[2025-04-27 23:05] LABS: HCT 38.8 % (36.0-46.0); HGB 13.2 g/dL (11.2-15.7); MCV 85 fL (80-95); MPV 11.6 fL (8.0-11.0); Platelet Count 189 10^3/uL (130-400); RBC 4.55 10^6/uL (3.93-5.22); RDW 14.6 % (11.7-14.6); RDW-SD 45.3 fL; WBC 16.09 10^3/uL (4.4-10.8)
--- NOTE | 2025-04-27 23:27 | W.ANESPRE ---
General Info Date of Service Date Performed: 04/27/25 Height: 5 ft 3 in Weight: 76.657 kg Body Mass Index (BMI): 29.9 Meds Allergies and Home Medications Allergies Allergy/AdvReac Type Severity Reaction Status Date / Time ENVIROMENTAL Allergy Mild Other (See Uncoded 04/22/25 15:09 Comment) Home Medication ?Medication ?Instructions ?Recorded montelukast 10 mg tablet 10 mg PO DAILY 12/20/21 escitalopram oxalate 10 mg tablet 10 mg PO DAILY 12/03/22 loratadine 10 mg tablet (Claritin) 10 mg PO DAILY 02/11/23 metoprolol tartrate 25 mg tablet 25 mg PO DAILY PRN 08/16/24 aspirin 81 mg tablet,delayed 81 mg PO DAILY #90 tabs 11/29/24 release levothyroxine 75 mcg tablet 75 mcg PO DAILY #30 tabs 11/29/24 ondansetron HCl 4 mg tablet 4 mg PO Q6H PRN nausea and 01/10/25 vomiting #30 tabs pantoprazole 40 mg tablet,delayed 40 mg PO DAILY #30 tabs 03/08/25 release Current Visit Medications: Current Medications Generic Name Dose Route Start Last Admin Trade Name Freq PRN Reason Stop Dose Admin Escitalopram Oxalate 10 mg 04/28/25 08:30 Escitalopram 10 Mg Tab PO DAILY MARILEE Fentanyl/Ropivacaine 200 ml 04/27/25 23:15 Fentanyl/Ropivacaine 2 Mcg/Ml And 0.1% 200 Ml Cadd Cassette EP DIRECTED FOR[facility] Ringer's Solution 500 mls @ 500 mls/hr 04/27/25 23:05 IV 04/28/25 00:04 BOLUS ONE IV Miscellaneous Supplies 1 each 04/27/25 23:15 Iv Access IV DIRECTED [facility] Levothyroxine Sodium 75 mcg 04/28/25 06:00 Levothyroxine 75 Mcg Tab PO 0600 MARILEE Sodium Chloride 0 ml 04/27/25 23:04 Normal Saline Flush 10 Ml Syr IVP PRN PRN Sodium Chloride 0 ml 04/28/25 08:30 Normal Saline Flush 10 Ml Syr IVP BID MARILEE Sodium Chloride 0 ml 04/27/25 23:04 Normal Saline 10 Ml Vial IJ DIRECTED PRN PFSH Active Problems Active Problems: Problem Status Onset Code Normal labor Acute O80, Z37.9 Rh negative state in antepartum period Acute O26.899, Z67.91 Advanced maternal age, 1st Acute O09.519 Anxiety and depression Chronic F41.9, F32.A Irritable bowel syndrome affecting Acute O99.619, K58.9 Acute Z34.90 Hypothyroidism Chronic E03.9 Environmental allergies Acute Z91.09 TMJ dysfunction Acute M26.609 Allergic rhinitis due to allergen Acute J30.9 Chronic rhinitis Acute J31.0 Otalgia of both ears Acute H92.03 Tinnitus, bilateral Acute H93.13 Abnormal auditory perception Acute H93.299 Medical History Medical History (Updated 04/27/25 @ 23:02 by Porsha Dash) Post-nasal drip Jaw pain Abdominal cramping affecting Palpitations Positive test Left lower quadrant pain Chronic vulvitis Doing well summer 2023 History of chronic cough Tobacco Smoking/Tobacco Use Status: Never Alcohol Alcohol Intake: current Substance Use Substance use: Occasionally Substance use type: marijuana Prental History History 2 Para 0 Hx # Term Pregnancies 0 Multiple births 0 Hx # Pregnancies 0 Ectopic pregnancies 1 AB induced 0 Hx Number of Living Children 0 AB spontaneous 0 Past Pregnancies Del. Date GA/Weeks # Preg Succ Route Wgt Sex Labor Lgth Anesthesia Location Prov Complic 03/31/17 5 No Delivery Date: 03/31/17 Last Updated by: Porsha Dash methyltrexate for ectopic Vital Signs and Lab Results Vital Signs Most Recent Vital Signs in EMR: Most Recent Vital Signs Pulse Resp BP 80 17 147/84 H 04/27/25 22:32 04/27/25 22:32 04/27/25 22:32 Lab Results 04/27/25 22:55 Blood Type / Crossmatch: No Data to Display Complete Blood Count: White Blood Count 16.09 10^3/uL (4.4-10.8) H 04/27/25 22:55 Red Blood Count 4.55 10^6/uL (3.93-5.22) 04/27/25 22:55 Hemoglobin 13.2 g/dL (11.2-15.7) 04/27/25 22:55 Hematocrit 38.8 % (36.0-46.0) 04/27/25 22:55 Platelet Count 189 10^3/uL (130-400) 04/27/25 22:55 Complete Metabolic Panel: No Data to Display Liver Function Panel: No Data to Display Coagulation Panel: No Data to Display Cardiac Panel: No Data to Display Arterial Blood Gas: No Data to Display Venous Blood Gas: No Data to Display Pancreas Panel: No Data to Display Thyroid Panel: No Data to Display Infectious Disease: No Data to Display Blood Cultures: No Data to Display Toxicology Panel: No Data to Display Panel: No Data to Display Anesthesia Assessment and Plan Anesthesia History Personal History: No History of Anesthesia Complications Family History: No Family History of Anesthesia Complications Exercise Tolerance Exercise Tolerance: Metabolic Equivalents>4 Pertinent Negatives Pertinent Negatives: No Major Cardiovascular Symptoms or Complaints and No Major Pulmonary Symptoms or Complaints Cardiac & Pulmonary Exam Cardiac Exam: Normal S1/S2 Heart Sounds Pulmonary Exam: Clear Bilateral Breath Sounds Implantable Cardiac Device Does patient have a Pacemaker or an ICD?: No Airway Exam Known Difficult Airway: No Mallampati Class: 2 Mouth Opening: Normal (> 3cm) Thyromental Distance: Greater than 3 cm Neck Range of Motion: Full ROM Neck Circumference: Normal Teeth Condition: Normal Dentition ASA Classification ASA Score: ASA 2 Emergency Case?: No NPO Status NPO Status: Full Stomach () Status Status: Confirmed Anesthesia Plan Resuscitation Status: Full Code Anesthesia Technique: Labor Epidural Airway Planned: Natural Airway Monitors Used: Standard Monitors
[2025-04-28] VITALS (110 sets, daily range): BP systolic 97–149; BP diastolic 48–87; PULSE 65–175; RESP 16–19; TEMP 36.4–37.2; O2SAT 96–100
[2025-04-28] MEDS: Bupivacaine 0.25% Pres-Free 10 ML VIAL EP (00:01)
[2025-04-28] MEDS: fentaNYL 100 MCG/2 ML VIAL EP (00:01)
[2025-04-28] MEDS: Lactated Ringers 500 ML IV (00:08)
[2025-04-28] MEDS: FentaNYL/ROPIvacaine 2 mcg/ml and 0.1% 200 ML CADD Cassette EP (00:09)
--- NOTE | 2025-04-28 00:17 | W.ANESNEU ---
Epidural/Spinal Catheter Date Performed: 04/28/25 Procedure Start: 23:45 Procedure Stop: 00:22 Requesting Provider: Porsha Dash Procedure Location: Obstetrics Reason Performed: Labor Epidural Standard Monitors Applied: Blood Pressure, SpO2 and See EMR for corresponding vital signs Patient Position: Sitting Sedation Given (Indicate Dose Given): No Sedation given Patient Mental Status: Awake Sterility: Hand Hygiene, Surgical Cap, Surgical Mask, Sterile Gloves, Sterile Drape/Sheet and Chlorhexidine Procedure Location: L3-L4 Interspace Epidural Needle: Tuohy 18 Gauge Needle Length: 3.5 Inch Needle Approach: Midline Epidural Procedure: Skin Prepped, Sterile Drape Placed, 1% Lidocaine to skin and subcutaneous tissue with 25G needle, Tuohy Needle placed, GIORGI to Saline Used, Epidural Catheter Placed, Negative Heme, Negative CSF Flow and Tuohy Needle Removed Catheter Placed?: Catheter Placed Test Dose (Indicate Dose Given): 3ml 1.5% Lidocaine with 1:200K Epinephrine Given and Negative Test Dose Loss of Resistance Depth (cm): 6 Catheter depth at skin (cm): 12 Dressing: Sorbaview Dressing Placed and Mastisol Used Epidural Provider Bolus (Indicate Dose Given): Total bolus dose given in 3-5 ml divided doses and Total Bupivacaine 0.25% Given (ml) Dose:: 6 ml Additives (Indicate Dose Given ): Fentanyl PF Dose:: 100 mcg Infusion Medication: Medication Infusion Began (@ 0015) Medication Infusion: Ropivacaine 0.1% with Fentanyl 2mcg/ml Maintenance Infusion Rate (ml/hour): 10 PCEA Bolus Dose (ml): 5 Block Level: N/A Paresthesia: Left Paresthesia Duration: Transient Ultrasound: Not Used Number of Attempts (See previous attempts in note section): 2 Procedure Tolerated: No Complications and Patient tolerated well Procedure Outcome: Successful Procedure Comment:: 1st attempt at L2-3 unsuccessful, success at L3-4, bood pain relief Performed By: Manda Pollard
--- NOTE | 2025-04-28 03:23 | W.PM.OBNL1 ---
Date of service: 04/28/25 Time of Service: 03:23 Pelvic Exam Dilation: 10 station: +2 Position: ROT Comments: small forebag AROM'ed for scant clear fluid Contractions Monitor Mode: External Contraction Frequency(min): q2-3 Intensity: Moderate/Strong Fetus A Monitor: External (US) Heart Rate Baseline: 120 Variability: Moderate (6-25 BPM) Categories: Category I Accelerations: 15 X 15 Decelerations: None Amniotic Membrane Status: Ruptured Rupture Method: Spontaneous Amniotic Fluid: Clear Date of Membrane Rupture: 04/28/25 Time of Membrane Rupture: 00:58 Assessment and Plan Assessment and plan (1) Normal labor: Status: Acute Assessment and plan: A: Effective epidural, 2nd stage labor beginning Category 1 tracing, clear fluid P: huddle completed, will empty bladder and begin pushing anticipate ; bedside support from FOB and finished stock inspector Objective Abnormal lab results 04/27/25 Range/Units 22:55 WBC 16.09 H (4.4-10.8) 10^3/uL MPV 11.6 H (8.0-11.0) fL Temp Pulse Resp BP Pulse Ox 97.5 F L 74 17 103/53 L 98 04/28/25 03:04 04/28/25 03:08 04/27/25 22:32 04/28/25 03:04 04/28/25 03:08 Laboratory Results WBC 16.09 10^3/uL (4.4-10.8) H 04/27/25 22:55 RBC 4.55 10^6/uL (3.93-5.22) 04/27/25 22:55 Hgb 13.2 g/dL (11.2-15.7) 04/27/25 22:55 Hct 38.8 % (36.0-46.0) 04/27/25 22:55 MCV 85 fL (80-95) 04/27/25 22:55 MCH 29.0 pg (27.0-33.0) 04/27/25 22:55 MCHC 34.0 % (32.0-36.0) 04/27/25 22:55 RDW 14.6 % (11.7-14.6) 04/27/25 22:55 Plt Count 189 10^3/uL (130-400) 04/27/25 22:55 MPV 11.6 fL (8.0-11.0) H 04/27/25 22:55 ABO/Rh O Negative 04/27/25 22:55 Antibody Screen NEGATIVE 04/27/25 22:55 Vital Signs Reviewed: Yes Subjective Interval history since last seen: Epidural has been effective, pt dozed off at times and rested, feeling a slight amount of pelvic pressure with contractions.
--- NOTE | 2025-04-28 05:35 | W.PM.OBNL1 ---
Date of service: 04/28/25 Time of Service: 05:35 Pelvic Exam Dilation: 10 station: +3 Contractions Monitor Mode: External Contraction Frequency(min): q2-3 Intensity: Moderate/Strong Fetus A Monitor: External (US) Heart Rate Baseline: 135 Variability: Moderate (6-25 BPM) Categories: Category I Accelerations: Present Decelerations: None Amniotic Membrane Status: Ruptured Assessment and Plan Assessment and plan (1) Normal labor: Status: Acute Assessment and plan: A: Began pushing at 0400 after straight cath for 200 ml clear yellow urine Category 1 tracing, descent to +3; effective epidural anesthesia Maternal position changes to assist rotation and descent P: Second 2nd stage huddle completed Pt wishes a 15 minute break to rest from pushing then resume Anticipate Objective Vital Signs Reviewed: Yes Objective Narrative Objective Narrative: Reassuring status with cat 1 tracing vital signs stable, fluid is clear, head now descended to +3 Subjective Interval history since last seen: Beginning to feel involuntary urges to bear down with contractions, more uncomfortable. Has changed positions several times for puching, on H&K, squatting and lateral lying.
--- NOTE | 2025-04-28 06:52 | W.PM.OBNL1 ---
Date of service: 04/28/25 Time of Service: 06:52 Pelvic Exam station: +3 Comments: vtx at pubic arch, gathering caput Contractions Monitor Mode: External Contraction Frequency(min): q2 Intensity: Moderate/Strong Fetus A Monitor: External (US) Heart Rate Baseline: 120 Variability: Moderate (6-25 BPM) Categories: Category I Accelerations: Present Decelerations: Early Amniotic Membrane Status: Ruptured Assessment and Plan Assessment and plan (1) Normal labor: Status: Acute Assessment and plan: A: At 3 hours of pushing under epidural category 1 tracing, pt with strong expulsive efforts descent to +3 with gathering caput, little descent in past hour P: 3rd 2nd stage huddle completed Dr. Diaz notified of slow descent, concern for arrest Will be in to evaluate for route of delivery Objective Vital Signs Reviewed: Yes Subjective Interval history since last seen: Pt is giving strong efforts, has been squatting, kneeling, lateral positions and semi fowlers with leg supports from FOB and production control coordinating clerk. Pt states she is tiring, understands that after 3 hours of pushing with little descent medical assistance is advised.
[2025-04-28] MEDS: Oxytocin/Normal Saline 30 UNIT/500 ML BAG 167 UNITS IV (07:40)
[2025-04-28] MEDS: Methylergonovine 0.2 MG/ML VIAL (08:00)
[2025-04-28] MEDS: miSOPROStol 200 MCG TAB 600 MCG SL (08:30)
--- NOTE | 2025-04-28 08:46 | OBVDS_ITS ---
Date of service: 04/28/25 Time of Service: 08:46 OB Labor/ Delivery Information Baby A Delivery Delivery Method: Spontaneaous Presentation: Cephalic Cephalic Position: Vertex Vertex Position: Right Occipital Anterior Breech Position: N/A Cord Description-Baby A: 3 Vessels Amniotic Fluid: Clear Quantitative Blood Loss: 450 Delivery Outcome: Liveborn Infant Transferred: Remains with Mother Note: Pt was complete/+2 at 0315, and began pushing with strong efforts at 0400 under epidural anesthesia. Tracing remained category 1 throughout, but descent was slow. At 3 hours of pushing and the 3rd second stage huddle, Dr. Diaz was notified of reassuring status but concern for arrest of descent @ +3 station and maternal fatigue. She came to evaluate route of delivery and consented for possible VAVD, Peds was requested to attend delivery, however pt was able to increase expulsive efforts and achieve of a somewhat non- vigorous female infant, nuchal cord noted and shoulders delivered by MD without need for maneuvers other than Jackie position. Cord clamped and cut by FOB and infant handed to Peds for any indicated NRP steps, segment of cord set aside for cord gas collection, pitocin bolus begun, CNM delivered [place] placenta intact with 3VC, 2nd degree perineal laceration repaired with 3.0 Vicryl by CNM. at this time was placed on mother's chest for S2S. Persistent trickle of lochia noted, methergine 0.2 mg IM given and fundus massaged until firm and below umbilicus, straight cath done for 100 ml concentrated yellow urine, vaginal sweep revealed no clots or gushes. As trickle continued to persist, Dr. Sloan was requested to evaluate for cervical or vaginal lacerations, CNM assisting with visualization, pt tolerated procedures well with effective epidural. No further lacerations identified, misoprostel 600 mcg PO given and lochia became scant, rooting at breast and strong family bonding was observed, apgars 5/8, weight 3315 gms. Providers Doctor: Jonelle Diaz Nurse Ambulance Officer: Porsha Dash Building Equipment Operator: Camron Richards Nurse: Cheli Pak Nurse: Gurjit Fraga Labor/Delivery Information Number of Babies in Womb: 1 Steroids Given: None Reason Steroids Not Administered: N/A Group Beta Strep: Negative Antibiotics Administered: No Rubella Status: Immune Blood Type: O- Varicella Immunity: Immune Shoulder Dystocia: No Stages of Labor Onset of Labor Date: 04/27/25 Onset of Labor Time: 19:00 Complete Dilatation Date: 04/28/25 ROM Baby A: 04/28/25 ROM Baby A: 00:58 ROM Total Time- Baby A: [id number] Infant Delivery Date-Baby A: 04/28/25 Infant Delivery Time-Baby A: 07:39 Placenta Delivery Date-Baby A: 04/28/25 Placenta Delivery Time-Baby A: 07:47 Labor-Stage 3 Duration: 8 minutes Total Length of Labor-Baby A: 12 hours and 39 minutes Placenta Cultured: No Placenta Status: Delivered Baby A Gender: Female Gestational Status: Term (39-41.6 wks) Gestational Age in Weeks/Days: 40 Weeks and 3 Days weight: 7 lb 4.933 oz Weight Comment: 3315 gms Score-1 Minute Interval(Baby A) Heart Rate-1 minute: 100 BPM or Greater Respiratory Effort- 1 minute: Spontaneous/Strong Cry Muscle Tone-1 minute: Limp Reflex Response-1 minute: Minimal Response Color-1 minute: Pallor or Cyanosis Total Score-1 minute: 5 Score-5 Minute Interval(Baby A) Heart Rate- 5 minute: 100 BPM or Greater Respiratory Effort-5 minute: Spontaneous/Strong Cry Muscle Tone-5 minute: Minimal Flexion/Extension Reflex Response-5 minute: Minimal Response Color-5 minute: [place]/No Cyanosis Total Score- 5 minute: 8
[2025-04-28] MEDS: Escitalopram 10 MG TAB PO (09:12)
[2025-04-28] MEDS: Levothyroxine 75 MCG TAB PO (09:12)
[2025-04-28] MEDS: Dibucaine 1% 28 GM TUBE TP (09:40)
[2025-04-28] MEDS: Hamamelis Leaf/Glycerin 100 EACH BOX PR (09:40)
[2025-04-28] MEDS: Ibuprofen 600 MG TAB PO ×3 (09:40→21:21)
[2025-04-28] MEDS: Acetaminophen 325 MG TAB 650 MG PO ×3 (09:40→21:21)
[2025-04-29 01:25] VITALS: BP 115/69; PULSE 82; RESP 18; TEMP 36.8; O2SAT 98
--- NOTE | 2025-04-29 07:46 | W.OBCONSULT ---
Date of service: 04/28/25 Time of Service: 07:30 Assessment and Plan Assessment and plan (1) (normal spontaneous vaginal delivery): Status: Acute Assessment and plan: Vaginal , female . Strong bonding. Routine post care History of Present Illness History of Present Illness Chief Complaint: Prolonged third stage Narrative: Kindly asked to see in consultation by Anna Dash CNM in light of slow progress in the 3rd stage. Category 1 tracing. Patient had a normal course of labor and recieved epidural for pain management. She was found to be nearly complete at 0300, and after ~2 1/2 hours of pushing with good maternal effort had faile to deliver. There was noted to be caput, and molding with a vertex at the +2 station. Baby was in the ARIE position with an adequate maternal pelvis. At the bedside we discussed the risks and benefits of assisted delivery and the risks and benefits of . The OR was notified to have a room available if surgical delivery was needed.Peds notified for the same and possible vacuum assist. With patient repositioning, Coaching and encouragement, the baby delivered after ~20 minutes of additional maternal pushing effort. ARIE position, Nuchal cord easily reduced x 1. No episiotomy, 2nd degree perineal laceration. No shoulder dystocia. Cord blood gasses and cord blood sample obtained.Placenta delivered spontaneously and in tact. Repair of perineal laceration and the remained of post care per Anna Dash and the midwifery service [facility] All Active Problems (Updated 04/29/25 @ 07:57 by Jonelle Diaz DO) (normal spontaneous vaginal delivery) (Acute) Prolonged 3rd stage. Female infant Carrie 04/28/2025 Normal labor (Acute) Rh negative state in antepartum period (Acute) Advanced maternal age, 1st (Acute) Anxiety and depression (Chronic) Irritable bowel syndrome affecting (Acute) avoids milk but consumes other dairy (Acute) Hypothyroidism (Chronic) Start synthroid May 2024 Environmental allergies (Acute) TMJ dysfunction (Acute) Allergic rhinitis due to allergen (Acute) Chronic rhinitis (Acute) Otalgia of both ears (Acute) Tinnitus, bilateral (Acute) Abnormal auditory perception (Acute) Medical History (Updated 04/29/25 @ 07:57 by Jonelle Diaz DO) Post-nasal drip Jaw pain Abdominal cramping affecting Palpitations Positive test Left lower quadrant pain Chronic vulvitis Doing well summer 2023 History of chronic cough Social History Smoking/Tobacco Use Status: Never Smoking risk assessment performed?: Yes Alcohol Intake: current Drug use: Occasionally Substance use type: marijuana Housing: house Do you feel safe at home: Yes Do you feel safe in your relationship?: Yes History History 2 Para 0 Hx # Term Pregnancies 0 Multiple births 0 Hx # Pregnancies 0 Ectopic pregnancies 1 AB induced 0 Hx Number of Living Children 0 AB spontaneous 0 Past Pregnancies Del. Date GA/Weeks # Preg Succ Route Wgt Sex Labor Lgth Anesthesia Location Prov Complic 03/31/17 5 No Delivery Date: 03/31/17 Last Updated by: Porsha Dash methyltrexate for ectopic Results Last Vital Signs Temp 98.2 F 04/29/25 01:25 Pulse 82 04/29/25 01:25 Resp 18 04/29/25 01:25 BP 115/69 04/29/25 01:25 Pulse Ox 98 04/29/25 01:25 Labs 04/27/25 22:55
[2025-04-29] MEDS: Escitalopram 10 MG TAB PO (07:48)
[2025-04-29] MEDS: Levothyroxine 75 MCG TAB PO (07:48)
[2025-04-29] MEDS: Acetaminophen 325 MG TAB 650 MG PO ×3 (07:52→22:40)
[2025-04-29] MEDS: Ibuprofen 600 MG TAB PO ×3 (07:53→22:39)
[2025-04-29 08:32] VITALS: BP 122/70; PULSE 72; RESP 18; TEMP 36.7
[2025-04-29] MEDS: Dibucaine 1% 28 GM TUBE TP (19:39)
[2025-04-29 19:40] VITALS: BP 121/68; PULSE 76; RESP 18; TEMP 36.8; O2SAT 99
[2025-04-30] MEDS: Acetaminophen 325 MG TAB 650 MG PO (06:22)
[2025-04-30] MEDS: Ibuprofen 600 MG TAB PO (06:22)
[2025-04-30] MEDS: Levothyroxine 75 MCG TAB PO (06:23)
[2025-04-30 07:15] VITALS: BP 126/82; PULSE 69; RESP 16; TEMP 36.7; O2SAT 98
[2025-04-30] MEDS: Escitalopram 10 MG TAB PO (08:26)
--- NOTE | 2025-04-30 11:33 | W.PM.OBPNV1 ---
Date of service: 04/29/25 Time of Service: 14:00 Assessment and Plan Assessment and plan (1) (normal spontaneous vaginal delivery): Status: Acute Assessment and plan: Caring for baby independently. Pain is managed well with oral analgesics. Voiding without difficulty. well. A - stable mother and baby , Post day 1 P - Discharge to home tomorrow . Routine post instructions. [facility] Subjective Subjective Patient comments: No complaints Patient's Mood: good [place] baby status: Doing well and Nursing well [place] feeding status: Exclusively breast feeding Exam Physical Exam Vital signs: Temp Pulse Resp BP Pulse Ox 98.1 F 69 16 126/82 98 04/30/25 07:15 04/30/25 07:15 04/30/25 07:15 04/30/25 07:15 04/30/25 07:15 Vital Signs Reviewed: Yes Constitutional Constitutional: no acute distress HEENT Exam HEENT Exam: Normal Neck Exam Neck Exam: Normal Respiratory Exam Respiratory Exam: Normal Cardiovascular Exam Cardiovascular Exam: Normal Fundal Exam Fundus: Below Umbilicus and Firm Extremities Exam Extremity Exam: Normal Skin Exam Skin Exam: Normal Psychiatric Exam Psychiatric Exam: Normal Results Hemoglobin/Hematocrit: Hgb 13.2 g/dL (11.2-15.7) 04/27/25 22:55 Hct 38.8 % (36.0-46.0) 04/27/25 22:55 Abnormal Lab Findings: Abnormal Labs 04/27/25 22:55 WBC 16.09 H MPV 11.6 H
--- NOTE | 2025-04-30 11:53 | DSE_ITS ---
Date of service: 04/30/25 Time of Service: 11:53 DS: Diagnosis Discharge Diagnosis (1) (normal spontaneous vaginal delivery): Status: Acute Asessment and Plan: Caring for baby independently. Pain is managed well with oral analgesics. Voiding without difficulty. well. A - stable mother and baby , Post day 2, history of anxiety treated with lexapro P - Discharge to home today. Routine post instructions. [facility] Discharge Plan Disposition Patient Disposition: Home Condition: Good Discharge Details Reason For Visit: Term Labor Admit Date/Time: 04/27/25 22:51 Admit Provider: Porsha Dash Attending Provider: Porsha Dash Primary Care Provider: Rita Quiroga Home Meds and New Rx's Prescriptions: No Action metoprolol tartrate 25 mg tablet 25 mg PO DAILY PRN loratadine [Claritin] 10 mg tablet 10 mg PO DAILY WOMENS MV & MINERAL 1 tab PO DAILY 0RF escitalopram oxalate 10 mg tablet 10 mg PO DAILY Patient Comments: take 1.5-2 tabs daily levothyroxine 75 mcg tablet 75 mcg PO DAILY Qty: 30 3RF aspirin 81 mg tablet,delayed release (DR/EC) 81 mg PO DAILY Qty: 90 5RF Rx Instructions: one tab daily alternating with two tabs every other day ondansetron HCl 4 mg tablet 4 mg PO Q6H PRN (Reason: nausea and vomiting) Qty: 30 1RF pantoprazole 40 mg tablet,delayed release (DR/EC) 40 mg PO DAILY Qty: 30 2RF montelukast 10 mg tablet 10 mg PO DAILY Discharge Instructions Activity:: Activity as Tolerated Equipment/Supplies:: No Equipment Needed Diet:: As Tolerated Discharge Orders Discharge Orders: Discharge Order (Routine); Ordered 04/30/25 Ordered By: Haleigh Dawn OB:DS Summary Summary Vaginal Delivery Method: Spontaneaous Laceration Extension: Second Degree Contraception Discussed Contraception Discussed: Yes Contraceptive Plan: IUD, [place] Infant Gender-Baby A: Female weight: 7 lb 4.933 oz Status at Discharge Functional status at discharge: independent ambulation Overall status at discharge: patient is back to baseline Mental Status: mental status grossly normal Speech and Movement: speech and movement normal Mood: congruent mood Affect: normal affect Quality:SDOH Health Related Social Needs: No Data to Display Exam Physical Exam Vital signs: Temp Pulse Resp BP Pulse Ox 98.1 F 69 16 126/82 98 04/30/25 07:15 04/30/25 07:15 04/30/25 07:15 04/30/25 07:15 04/30/25 07:15 Vital Signs Reviewed: Yes Constitutional Constitutional: no acute distress HEENT Exam HEENT Exam: Normal Respiratory Exam Respiratory Exam: Normal Cardiovascular Exam Cardiovascular Exam: Normal Fundal Exam Fundus: Below Umbilicus and Firm Exam Perineum: Bruising External: Present normal urethra appearance and tenderness; Absent swelling or ecchymosis Extremities Exam Extremity Exam: Normal Skin Exam Skin Exam: Normal Psychiatric Exam Psychiatric Exam: Normal PFSH All Active Problems (Updated 04/30/25 @ 11:55 by Haleigh Dawn CNM) (normal spontaneous vaginal delivery) (Acute) Prolonged 3rd stage. Female Carrie 04/28/2025 Rh negative state in antepartum period (Acute) Medical History (Updated 04/30/25 @ 11:55 by Haleigh Dawn CNM) Irritable bowel Tinnitus, bilateral Abnormal auditory perception Otalgia of both ears Anxiety and depression Hypothyroidism Start synthroid May 2024 Environmental allergies TMJ dysfunction Allergic rhinitis due to allergen Chronic rhinitis Post-nasal drip Jaw pain Abdominal cramping affecting Palpitations Positive test Left lower quadrant pain Chronic vulvitis Doing well summer 2023 History of chronic cough Social History Smoking/Tobacco Use Status: Never Smoking risk assessment performed?: Yes Alcohol Intake: current Drug use: Occasionally Substance use type: marijuana Housing: house Do you feel safe at home: Yes Do you feel safe in your relationship?: Yes History History 2 Para 0 Hx # Term Pregnancies 0 Multiple births 0 Hx # Pregnancies 0 Ectopic pregnancies 1 AB induced 0 Hx Number of Living Children 0 AB spontaneous 0 Past Pregnancies Del. Date GA/Weeks # Preg Succ Route Wgt Sex Labor Lgth Anesth esia Location Prov Complic 03/31/17 5 No Delivery Date: 03/31/17 Last Updated by: Porsha Dash methyltrexate for ectopic DS: Data Vitals/I&O Vitals and I&O: Vital Signs Temperature 98.1 F 04/30/25 07:15 Temperature Source Oral 04/30/25 07:15 Pulse 69 04/30/25 07:15 Pulse Rhythm Regular 04/30/25 07:15 Respiratory Rate 16 04/30/25 07:15 Respiratory Depth Normal 04/29/25 19:40 Blood Pressure 126/82 04/30/25 07:15 Blood Pressure Mean 96 04/30/25 07:15 Pulse Oximetry 98 04/30/25 07:15 Oxygen Delivery Method Room Air 04/27/25 22:32 Oxygen Flow Rate 0 04/27/25 22:32 Pain Level 4 04/30/25 07:15
== END 2025-04-30 14:35 | disposition home or self-care (01) | DRG 807 ==
PROVIDERS: Admitting Provider Advanced Practice Midwife; PCP Family Medicine; Visit Provider Advanced Practice Midwife
DX: O99.284 Endocrine, nutritional and metabolic diseases complicating childbirth (principal); Z37.0 Single live birth; Z3A.40 40 weeks gestation of pregnancy; O26.893 Other specified pregnancy related conditions, third trimester; Z67.91 Unspecified blood type, Rh negative; E03.9 Hypothyroidism, unspecified; O99.62 Diseases of the digestive system complicating childbirth; K21.9 Gastro-esophageal reflux disease without esophagitis; O99.344 Other mental disorders complicating childbirth; F41.8 Other specified anxiety disorders; K58.9 Irritable bowel syndrome, unspecified; O69.81X0 Labor and delivery complicated by cord around neck, without compression, not applicable or unspecified; O70.1 Second degree perineal laceration during delivery
CPT/HCPCS: 36415; 85027; 86850; 86900; 86901; J0665; J2210; J2371; J3010

== ENCOUNTER 2025-05-04 17:02 | Outpatient (CLI) | payer BC, SELFPAY ==
[2025-05-04 17:32] VITALS: BP 138/82; PULSE 86; RESP 18; TEMP 36.8
--- NOTE | 2025-05-04 17:56 | PGE_ITS ---
Date of Service Date of service: 05/04/25 Time of Service: 17:56 Assessment and Plan Assessment and plan (1) Body aches: Status: Acute Assessment and plan: Motrin and tylenol PRN. Rest and call if symptoms increase. Reassured by normal exam. CBC and CMP pending. (2) Chills (without fever): Status: Acute Assessment and plan: Motrin every 6 hours. call if fever occurs. Plan reviewed and CBC results with Dr Sloan who agrees with plan. (3) Breast engorgement, obstetric: Status: Acute Assessment and plan: Ice recommended continuously and continued attempts to latch the baby without the shield using the haaka or pump to draw the nipples out. Subjective Subjective Patient reports: still having pain (breast engorgement and axillary discomfort) Interval history since last seen: Roxanne is 6 days post and is experiencing flulike symptoms and breast pain and swelling in axilla bilaterally after she awoke from a nap today. . She is afebrile and denies uterine pain or perineal discomfort. She denies pain in her legs. She is experiencing body aches which she describes as a 6 and had chills at home. She has been taking tylenol and motrin every 4-6 hours. Baby is latching well with a nipple shield and she is using a Haaka. She reports that her symptoms improved on the way to the hospital. She also reports that the symptoms made her feel anxious and she reports that she does become anxious about health-related problems. Exam Chest Breast inspection: normal inspection of the breasts Breast palpation: abnormal palpation of the axilla (tender and slight engorgement) and abnormal palpation of the breast (engorgement) GI Inspection: normal to inspection Palpation: soft, nontender and other (Fundus firm above symphysis pubis. ) External Female Exam: normal external appearance Speculum Exam - Vagina: normal appearance of the vagina, laceration (healing well. digital exam reveals no selling or masses in vagina. ) and other (Minimal discomfort with digital exam. ) Extrem General: normal to inspection, no calf tenderness, no pedal edema and other (negative homans sign) Objective Last Vital Signs Temp 98.2 F 05/04/25 17:32 Pulse 86 05/04/25 17:32 Resp 18 06/04/25 17:32 BP 138/82 05/04/25 17:32 Time Spent with Patient Time Spent with Patient: 25-34 minutes Time was spent: preparing to see the patient(eg.review tests), obtaining and/or reviewing separately otained hiistory, ordering medications,tests, procedures, referring, communicating with other health patient care technician instructor, indepentently interpreting results and counseling the patient
[2025-05-04 18:10] LABS: Abs Immature Grans 0.33 10^3/uL (0.0-0.06); Absolute Eosinophil Count 0.58 10^3/uL (0.0-0.7); Absolute Lymphocyte Count 1.18 10^3/uL (1.2-3.4); Absolute Monocyte Count 1.08 10^3/uL (0.1-0.8); Basophils % 0.3 %; Eosinophils % 3.7 %; HCT 35.8 % (36.0-46.0); HGB 11.9 g/dL (11.2-15.7); Immature Grans % 2.1 %; Lymphocytes % 7.5 %; MCHC 33.2 % (32.0-36.0); MCV 87 fL (80-95); MPV 9.9 fL (8.0-11.0); Monocytes % 6.9 %; Neutrophils % 79.5 %; Platelet Count 351 10^3/uL (130-400); RDW 15.1 % (11.7-14.6); RDW-SD 48.3 fL; WBC 15.71 10^3/uL (4.4-10.8)
[2025-05-04 18:11] LABS: Absolute Basophil Count 0.05 10^3/uL (0.0-0.2); Absolute Neutrophil Count 12.49 10^3/uL (1.2-6.7)
[2025-05-04 18:23] LABS: ALT 27 U/L (14-59); AST 16 U/L (15-37); Albumin 2.7 g/dL (3.4-5.0); Alkaline Phosphatase 162 U/L (46-116); Anion Gap 12.2 mmol/L (3-11); BUN 15 mg/dL (7-18); Bilirubin, Total 0.2 mg/dL (0.2-1.0); CO2 21.8 mmol/L (21.0-32.0); CREATININE 0.8 mg/dL (0.55-1.02); Chloride 103 mmol/L (98-107); Estimated GFR 97.87 (mL/min/1.73m2); Glucose 119 mg/dL (74-106); Potassium 3.9 mmol/L (3.5-5.1); Sodium 137 mmol/L (136-145); Total Protein 6.7 g/dL (6.4-8.2)
[2025-05-05 14:06] VITALS: BP 140/86; PULSE 84
== END 2025-05-04 18:37 ==
LOC: BCD 17:03 → OBS 17:30
PROVIDERS: PCP Family Medicine; Visit Provider Advanced Practice Midwife
DX: R52 Pain, unspecified (principal); R68.83 Chills (without fever); O92.79 Other disorders of lactation
CPT/HCPCS: 80053; 85025

== ENCOUNTER 2025-06-09 02:11 | Outpatient (CLI) | payer BC, SELFPAY ==
[2025-06-09 13:44] LABS: TSH (W/Ref FT4) 0.37 uIU/mL (0.36-3.74)
== END 2025-06-09 02:12 | disposition home or self-care (01) ==
LOC: LBO 02:11
PROVIDERS: PCP Family Medicine; Visit Provider Advanced Practice Midwife
DX: E03.9 Hypothyroidism, unspecified (principal)
CPT/HCPCS: 36415; 84443

== ENCOUNTER 2025-06-09 15:55 | Outpatient (REF) | payer BC, SELFPAY ==
--- NOTE | 2025-06-09 14:00 | PAPFT_PTH ---
PATIENT: Roxanne Beltran V LOC: [facility] U#:[id number] AGE/SX: 35/F ROOM: RE06/09/[address]: Porsha Dash CNM : 1990 BED: DIS: 06/09/2025 SPEC #: [id number] RECD: 06/09/25 18:15 STATUS: [place] REQ #: [id number] AUTUMN: 06/09/25 14:[address]: Porsha Dash DEPT: [facility] Cytology RECD BY: Zenobia Wu ENTERED: 06/09/25 18:15 SP TYPE: PAPFT OTHR DR: Rita Quiroga Tissues: 1 - CX/ENDOCX FOR PAP SMEARS Procedures: PAP THIN PREP/UVM Screening HPV DNA PROBE Comments: [id number] (HPV 16 & 18/45)
== END 2025-06-09 15:56 | disposition home or self-care (01) ==
LOC: LBN 15:55
PROVIDERS: PCP Family Medicine; Visit Provider Advanced Practice Midwife
DX: Z12.4 Encounter for screening for malignant neoplasm of cervix (principal); Z11.51 Encounter for screening for human papillomavirus (HPV)
CPT/HCPCS: 88142; 87624

== ENCOUNTER 2025-07-20 19:47 | Outpatient (REF) | payer BC, SELFPAY | END 2025-07-20 19:48 | disposition home or self-care (01) | LOC: LBN 19:47 | PROVIDERS: PCP Family Medicine; Visit Provider Advanced Practice Midwife | DX: Z87.42 Personal history of other diseases of the female genital tract (principal) | CPT/HCPCS: 87480; 87510; 87660 ==

== ENCOUNTER 2025-10-10 13:41 | Outpatient (CLI) | payer BC, SELFPAY ==
--- NOTE | 2025-10-10 13:30 | RT.EKG_ITS ---
APPROVED REPORT Exam: Resting ECG Reason for Exam: Dizziness Patient Location: O HR:62 bpm ECG Measurements Heart Rate 62 AXIS TN 180 P 67 QRSd 101 QRS 52 QT 405 T 17 QTc 412 Conclusion Sinus rhythm...normal P axis, V-rate 50- 99 RSR' in V1 or V2, probably normal variant...small R' only Normal Electrocardiogram
== END 2025-10-10 13:42 | disposition home or self-care (01) ==
LOC: DI.CM 13:41
PROVIDERS: PCP Family Medicine; Visit Provider Nurse Practitioner Family
DX: R07.89 Other chest pain (principal)
CPT/HCPCS: 93010

== ENCOUNTER 2025-10-10 13:57 | Outpatient (CLI) | payer BC, SELFPAY ==
[2025-10-10 15:52] LABS: Abs Immature Grans 0.02 10^3/uL (0.0-0.06); HCT 40.8 % (36.0-46.0); HGB 13.5 g/dL (11.2-15.7); Immature Grans % 0.3 %; MCH 29.2 pg (27.0-33.0); MCHC 33.1 % (32.0-36.0); MCV 88 fL (80-95); MPV 10.0 fL (8.0-11.0); Platelet Count 310 10^3/uL (130-400); RBC 4.62 10^6/uL (3.93-5.22); RDW 13.4 % (11.7-14.6); RDW-SD 43.5 fL; WBC 7.90 10^3/uL (4.4-10.8)
[2025-10-10 16:14] LABS: TSH (W/Ref FT4) 5.19 uIU/mL (0.36-3.74)
[2025-10-10 16:18] LABS: Ferritin 62 ng/mL (8-252)
== END 2025-10-10 13:58 | disposition home or self-care (01) ==
LOC: LOS 13:58
PROVIDERS: PCP Family Medicine; Visit Provider Nurse Practitioner Family
DX: R53.83 Other fatigue (principal); R42 Dizziness and giddiness
CPT/HCPCS: 36415; 82728; 84439; 84443; 85025